=== PATIENT | female | born 1960 | race African-American/Black ===

== ENCOUNTER 2016-04-13 12:25 | Emergency (ER) | payer MEDICARE, BC ==
[2016-04-13] MEDS ORDERED: HYDROcodone/APAP 5-325MG 1 EACH TAB PO STA (12:56)
--- NOTE | 2016-04-13 13:27 | ED ---
General Adult HPI - General Chief complaint: Extremity Injury, Lower Stated complaint: Leg Burning-Post Op Time Seen by Provider: 04/13/16 12:45 Source: patient, RN notes reviewed, old records reviewed Mode of arrival: ambulatory Limitations: no limitations - History of Present Illness Initial comments: This is a 56-year-old female ER status post left leg catheterization. Patient just said stent placed and left leg secondary to arterial stenosis, as well as right leg. Patient has no surgery was done a few days ago. She is complaining of mild left groin pain but nothing out of the ordinary. Not taking anything for pain. Patient's main complaint realizing numbness and tingling of both her lower extremities, legs and feet. Patient denies a previous history of similar symptoms, no other trauma. No loss of bowel or bladder, no neurological deficits - Related Data Home Medications Medication Instructions Recorded Confirmed Furosemide [Lasix] 80 mg PO BID 09/17/13 03/12/16 Insulin Glargine,Hum.rec.anlog 38 units SQ HS 10/17/15 03/12/16 [[place] Solostar] Sevelamer [Renvela] 800 mg PO QID 10/17/15 03/12/16 Albuterol Inhaler [Ventolin Hfa 1 puff INHALATION RT-BID PRN 02/12/16 03/12/16 Inhaler] Atorvastatin [Lipitor] 40 mg PO HS 02/12/16 03/12/16 Insulin Aspart [NovoLOG Flexpen] See Protocol SQ AC-TID 02/12/16 03/12/16 Pantoprazole [Protonix] 40 mg PO DAILY 02/12/16 03/12/16 Aspirin 325 mg PO DAILY 03/12/16 03/12/16 Folic Acid-Vit B Complex-Vit C 1 mg PO DAILY 03/12/16 03/12/16 [Nephrocaps] Fosrenol 1,000 mg PO QID 03/12/16 03/12/16 Previous Rx's Medication Instructions Recorded Metoprolol Succinate (ER) [Toprol 50 mg PO DAILY #30 tab.er.24h 10/29/15 XL] Nitroglycerin Sl Tabs [Nitrostat] 0.4 mg SUBLINGUAL Q5M PRN #25 tab 10/29/15 Clopidogrel [Plavix] 75 mg PO DAILY tab 02/16/16 ALPRAZolam [Xanax] 0.25 mg PO HS #0 02/18/16 Fenofibrate Nanocrystallized 145 mg PO HS #30 tablet 03/14/16 [Tricor] INSULIN LISPRO (humaLOG) [humaLOG 0 unit SQ ACHS vial 03/14/16 (formulary)] INSULIN LISPRO (humaLOG) [humaLOG 14 unit SQ AC-LUNCH vial 03/14/16 (formulary)] INSULIN LISPRO (humaLOG) [humaLOG 16 unit SQ AC-SUPPER vial 03/14/16 (formulary)] HYDROcodone/APAP 5-325MG [[place] 1 tab PO Q6HR PRN #20 tab 04/13/16 5-325] Allergies Allergy/AdvReac Type Severity Reaction Status Date / Time iodine Allergy Anaphylaxis Verified 04/13/16 14:22 Penicillins Allergy Rash/Hives Verified 04/13/16 14:22 shellfish derived Allergy Anaphylaxis Verified 04/13/16 14:22 clonidine AdvReac Unknown Verified 04/13/16 12:35 Review of Systems ROS Statement: Those systems with pertinent positive or pertinent negative responses have been documented in the HPI. ROS Other: All systems not noted in ROS Statement are negative. Past Medical History Past Medical History: Coronary Artery Disease (CAD), Chest Pain / Angina, CVA/ TIA, Diabetes Mellitus, GERD/Reflux, GI Bleed, Hyperlipidemia, Hypertension, Osteoarthritis (OA), Pneumonia, Rheumatoid Arthritis (RA) Additional Past Medical History / Comment(s): Chronic renal failure with hemodialysis MWF, 2.8 liters taken off 02/11/16 anemia,, CVA 2007 with some peripheral vision problems R eye, TIAs, lower GI bleed, PAD, DJD, diverticulosis , peripheral neuropathy bilateral feet, UTIs, bronchitis, pancreatitis, TMJ., History of Any Multi-Drug Resistant Organisms: None Reported Past Surgical History: Cholecystectomy, Heart Catheterization With Stent, Hysterectomy Additional Past Surgical History / Comment(s): graft L upper arm for dialysis, Cardiac cath with stent to mid RCA, colonoscopies with 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 Date of Last Stent Placement:: 09/22/13 Past Psychological History: No Psychological Hx Reported Additional Psychological History / Comment(s): Pt resides with her spouse. She is independent. She drives. Smoking Status: Former smoker Past Alcohol Use History: Occasional Additional Past Alcohol Use History / Comment(s): Pt smoked from 1983 to 2012. She drinks alcohol occasionally. Past Drug Use History: None Reported - Past Family History Mother Family Medical History: Hypertension, Rheumatoid Arthritis (RA) Additional Family Medical History / Comment(s): Mother is 75 yrs old. Father Family Medical History: Diabetes Mellitus Additional Family Medical History / Comment(s): Father at the age of 42 yrs -pt did not discuss cause of . General Exam Limitations: no limitations General appearance: alert, in no apparent distress Head exam: Present: atraumatic, normocephalic, normal inspection Eye exam: Present: normal appearance, PERRL, EOMI. Absent: scleral icterus, conjunctival injection, periorbital swelling ENT exam: Present: normal exam, mucous membranes moist Neck exam: Present: normal inspection. Absent: tenderness, meningismus, lymphadenopathy Respiratory exam: Present: normal lung sounds bilaterally. Absent: respiratory distress, wheezes, rales, rhonchi, stridor Cardiovascular Exam: Present: regular rate, normal rhythm, normal heart sounds. Absent: systolic murmur, diastolic murmur, rubs, gallop, clicks GI/Abdominal exam: Present: soft, normal bowel sounds. Absent: distended, tenderness, guarding, rebound, rigid Extremities exam: Present: normal inspection, full ROM, normal capillary refill , other (She does have left leg groin hematoma). Absent: tenderness, pedal edema, joint swelling, calf tenderness Back exam: Present: normal inspection Neurological exam: Present: alert, oriented X3, CN II-XII intact Psychiatric exam: Present: normal affect, normal mood Skin exam: Present: warm, dry, intact, normal color. Absent: rash Course Vital Signs 04/13/16 12:32 Temperature 98.9 F Pulse Rate 99 Respiratory 18 Rate Blood Pressure 149/71 O2 Sat by Pulse 99 Oximetry Medical Decision Making - Medical Decision Making 56 male to ED co bilateral lower exremity paresthesia, ultrasound negative for any groin issue, patient will follow up with [facility] for further evaluation of her lower extremity paresthesias - Radiology Data Radiology results: report reviewed (Ultrasound left groin negative), image reviewed Disposition Clinical Impression: Paresthesia of bilateral legs Disposition: HOME SELF-CARE Condition: Good Instructions: Paresthesia (ED) Prescriptions: HYDROcodone/APAP 5-325MG [[place] 5-325] 1 tab PO Q6HR PRN #20 tab PRN Reason: Pain Referrals: Ramiro Sethi MD [Primary Care Provider] - 1-2 days
--- NOTE | 2016-04-13 14:14 | US ---
EXAMINATION TYPE: US groin extremity LT DATE OF EXAM: 04/13/2016 1:45 PM COMPARISON: NONE CLINICAL HISTORY: Pain. Burning sensation in bilateral legs, pt states she does have neuropathy, but has never experienced this sensation in her legs before. Recently had a procedure done to place a zuhair nt in the right leg by entering through the left groin. TECHNOLOGIST IMPRESSION: Left groin appears to be within normal limits. IMPRESSION: No significant abnormality. No evidence of venous thrombosis or arterial occlusion. Ther e is some atherosclerotic plaque in the femoral artery. No pathologic fluid collection. No hernia see n. No evidence of pseudoaneurysm.
[2016-04-13 14:54] VITALS: BP 170/72; PULSE 87; RESP 16; TEMP 98.6
== END 2016-04-13 15:03 | disposition home or self-care (01) ==
LOC: EC 12:25
DX: R20.2 Paresthesia of skin (principal); Z95.5 Presence of coronary angioplasty implant and graft; M19.90 Unspecified osteoarthritis, unspecified site; I10 Essential (primary) hypertension; I12.9 Hypertensive chronic kidney disease with stage 1 through stage 4 chronic kidney disease, or unspecified chronic kidney disease; M06.9 Rheumatoid arthritis, unspecified; K21.9 Gastro-esophageal reflux disease without esophagitis; I25.10 Atherosclerotic heart disease of native coronary artery without angina pectoris; E78.5 Hyperlipidemia, unspecified; E11.9 Type 2 diabetes mellitus without complications; Z79.02 Long term (current) use of antithrombotics/antiplatelets; Z79.4 Long term (current) use of insulin; Z79.899 Other long term (current) drug therapy; Z79.82 Long term (current) use of aspirin; Z88.0 Allergy status to penicillin; Z86.73 Personal history of transient ischemic attack (TIA), and cerebral infarction without residual deficits; Z87.891 Personal history of nicotine dependence
CPT/HCPCS: 99283

== ENCOUNTER 2016-07-16 03:15 | Inpatient (IN) | payer MEDICARE, BC ==
[2016-07-16] MEDS ORDERED: IPRATROPIUM-ALBUTEROL 3 ML NEB INHALATION STA (03:41)
[2016-07-16 03:55] LABS: Anisocytosis Slight; Basophils % (A) 0 %; CH 29.9; CHCM 30.7; Eosinophils # (A) 0.1 k/uL (0-0.7); Eosinophils % (A) 1 %; HCT 34.8 % (34.0-46.0); HDW 3.34; Hypochromasia Marked; Luc # (Auto) 0.11; Luc % (Auto) 1; Lymphocytes # (A) 0.9 k/uL (1.0-4.8); Lymphocytes % (A) 11 %; MCHC 31.7 g/dL (31.0-37.0); MCV 97.8 fL (80.0-100.0); Macrocytosis Slight; Mean Platelet Volume 7.3; Monocytes # (A) 0.3 k/uL (0-1.0); Monocytes % (A) 4 %; Neutrophils % (A) 83 %; RBC 3.56 m/uL (3.80-5.40); RDW 19.6 % (11.5-15.5); WBC 8.4 k/uL (3.8-10.6); WBC (Perox) 8.73
--- NOTE | 2016-07-16 03:59 | ED ---
General Adult HPI - General Chief complaint: Shortness of Breath Stated complaint: fluid retention-dialysis pt Time Seen by Provider: 07/16/16 03:40 Source: patient, RN notes reviewed, old records reviewed Mode of arrival: ambulatory Limitations: no limitations - History of Present Illness Initial comments: This is a 56-year-old female the ER for evaluation. The patient is unsafe for evaluation of shortness of breath, severe shortness of breath, patient staffs patient with history of heart failure. Feels like she can't catch her breath. Mild nausea no vomiting. No fevers. Mild cough no congestion. No travel history no sick contacts. - Related Data Home Medications Medication Instructions Recorded Confirmed Furosemide [Lasix] 80 mg PO BID 09/17/13 04/13/16 Insulin Glargine,Hum.rec.anlog 38 units SQ HS 10/17/15 04/13/16 [[place] Solostar] Sevelamer [Renvela] 800 mg PO QID 10/17/15 04/13/16 Albuterol Inhaler [Ventolin Hfa 1 puff INHALATION RT-BID PRN 02/12/16 04/13/16 Inhaler] Insulin Aspart [NovoLOG Flexpen] See Protocol SQ AC-TID 02/12/16 04/13/16 Pantoprazole [Protonix] 40 mg PO DAILY 02/12/16 04/13/16 Fosrenol 1,000 mg PO DAILY 03/12/16 04/13/16 Aspirin EC [Ecotrin Low Dose] 81 mg PO DAILY 04/13/16 04/13/16 Atorvastatin [Lipitor] 40 mg PO HS 04/13/16 04/13/16 Previous Rx's Medication Instructions Recorded Metoprolol Succinate (ER) [Toprol 50 mg PO DAILY #30 tab.er.24h 10/29/15 XL] Nitroglycerin Sl Tabs [Nitrostat] 0.4 mg SUBLINGUAL Q5M PRN #25 tab 10/29/15 Clopidogrel [Plavix] 75 mg PO DAILY tab 02/16/16 ALPRAZolam [Xanax] 0.25 mg PO HS #0 02/18/16 HYDROcodone/APAP 5-325MG [[place] 1 tab PO Q6HR PRN #20 tab 04/13/16 5-325] Allergies Allergy/AdvReac Type Severity Reaction Status Date / Time iodine Allergy Anaphylaxis Verified 07/16/16 03:20 Penicillins Allergy Rash/Hives Verified 07/16/16 03:20 shellfish derived Allergy Anaphylaxis Verified 07/16/16 03:20 clonidine AdvReac Unknown Verified 07/16/16 03:20 Review of Systems ROS Statement: Those systems with pertinent positive or pertinent negative responses have been documented in the HPI. ROS Other: All systems not noted in ROS Statement are negative. Past Medical History Past Medical History: Coronary Artery Disease (CAD), Chest Pain / Angina, CVA/ TIA, Diabetes Mellitus, GERD/Reflux, GI Bleed, Hyperlipidemia, Hypertension, Osteoarthritis (OA), Pneumonia, Rheumatoid Arthritis (RA) Additional Past Medical History / Comment(s): Chronic renal failure with hemodialysis MWF, 2.8 liters taken off 02/11/16 anemia,, CVA 2007 with some peripheral vision problems R eye, TIAs, lower GI bleed, PAD, DJD, diverticulosis , peripheral neuropathy bilateral feet, UTIs, bronchitis, pancreatitis, TMJ., History of Any Multi-Drug Resistant Organisms: None Reported Past Surgical History: Cholecystectomy, Heart Catheterization With Stent, Hysterectomy Additional Past Surgical History / Comment(s): graft L upper arm for dialysis, Cardiac cath with stent to mid RCA, colonoscopies with 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 Date of Last Stent Placement:: 09/22/13 Past Psychological History: No Psychological Hx Reported Additional Psychological History / Comment(s): Pt resides with her spouse. She is independent. She drives. Smoking Status: Former smoker Past Alcohol Use History: Occasional Additional Past Alcohol Use History / Comment(s): Pt smoked from 1983 to 2012. She drinks alcohol occasionally. Past Drug Use History: None Reported - Past Family History Mother Family Medical History: Hypertension, Rheumatoid Arthritis (RA) Additional Family Medical History / Comment(s): Mother is 75 yrs old. Father Family Medical History: Diabetes Mellitus Additional Family Medical History / Comment(s): Father at the age of 42 yrs -pt did not discuss cause of . General Exam Limitations: no limitations General appearance: alert, anxious, in distress, obese Head exam: Present: atraumatic, normocephalic, normal inspection Eye exam: Present: normal appearance, PERRL, EOMI. Absent: scleral icterus, conjunctival injection, periorbital swelling ENT exam: Present: normal exam, mucous membranes moist Neck exam: Present: normal inspection. Absent: tenderness, meningismus, lymphadenopathy Respiratory exam: Present: respiratory distress, rales, accessory muscle use, decreased breath sounds, prolonged expiratory. Absent: wheezes, rhonchi, stridor Cardiovascular Exam: Present: regular rate, normal rhythm, normal heart sounds. Absent: systolic murmur, diastolic murmur, rubs, gallop, clicks GI/Abdominal exam: Present: soft, normal bowel sounds. Absent: distended, tenderness, guarding, rebound, rigid Extremities exam: Present: normal inspection, full ROM, normal capillary refill. Absent: tenderness, pedal edema, joint swelling, calf tenderness Back exam: Present: normal inspection Neurological exam: Present: alert, oriented X3, CN II-XII intact Psychiatric exam: Present: normal affect, normal mood Skin exam: Present: warm, dry, intact, normal color. Absent: rash Course Vital Signs 07/16/16 07/16/16 07/16/16 03:19 03:55 04:06 Temperature 98 F Pulse Rate 98 105 H 103 H Respiratory 26 H Rate Blood Pressure 178/74 O2 Sat by Pulse 89 L Oximetry 07/16/16 07/16/16 07/16/16 04:18 04:29 04:40 Temperature Pulse Rate 98 96 94 Respiratory 26 H 23 22 Rate Blood Pressure 178/75 168/77 158/77 O2 Sat by Pulse 93 L 94 L 100 Oximetry 07/16/16 05:41 Temperature Pulse Rate 91 Respiratory 24 Rate Blood Pressure 136/98 O2 Sat by Pulse 95 Oximetry - Reevaluation(s) Reevaluation #1: 07/16/16 06:06 Patient placed on BiPAP upon arrival to Hospital, and blood pressure control with nitro, treating CHF and fluid overload comes kidney disease Reevaluation #2: 07/16/16 06:06 Patient's case fluid complicated further, blood being in severe dehydration with DKA. Patient started on insulin, given a fluid bolus with IV resuscitation EKG Findings - EKG Comments: EKG Findings:: EKG shows normal sinus rhythm rate of 97, MA 144, QRS 90, QTC 505 Medical Decision Making - Medical Decision Making 56 female year for evaluation of multiple issues, first being CHF with respiratory failure and fluid overload second being DKA with volume depletion. Patient be admitted for likely management, fluid resuscitation, dialysis by nephrology and further evaluation and treatment regarding heart failure from product marketing programs manager - Lab Data Result diagrams: 07/16/16 03:40 07/16/16 03:40 Lab Results 07/16/16 07/16/16 07/16/16 Range/Units 03:40 03:40 03:40 WBC 8.4 (3.8-10.6) k/uL RBC 3.56 L (3.80-5.40) m/uL Hgb 11.0 L (11.4-16.0) gm/dL Hct 34.8 (34.0-46.0) % MCV 97.8 (80.0-100.0) fL MCH 31.0 (25.0-35.0) pg MCHC 31.7 (31.0-37.0) g/dL RDW 19.6 H (11.5-15.5) % Plt Count 337 (150-450) k/uL Neutrophils % 83 % Lymphocytes % 11 % Monocytes % 4 % Eosinophils % 1 % Basophils % 0 % Neutrophils # 7.0 (1.3-7.7) k/uL Lymphocytes # 0.9 L (1.0-4.8) k/uL Monocytes # 0.3 (0-1.0) k/uL Eosinophils # 0.1 (0-0.7) k/uL Basophils # 0.0 (0-0.2) k/uL Hypochromasia Marked Anisocytosis Slight Macrocytosis Slight PT (9.0-12.0) sec INR (<1.1) APTT (22.0-30.0) sec D-Dimer (<0.60) mg/L FEU Sodium 136 L (137-145) mmol/L Potassium 4.3 (3.5-5.1) mmol/L Chloride 91 L (98-107) mmol/L Carbon Dioxide 24 (22-30) mmol/L Anion Gap 21 mmol/L BUN 52 H (7-17) mg/dL Creatinine 8.44 H* (0.52-1.04) mg/dL Est GFR (MDRD) Af Amer 6 (>60 ml/min/1.73 sqM) Est GFR (MDRD) Non-Af 5 (>60 ml/min/1.73 sqM) Glucose 588 H* (74-99) mg/dL POC Glucose (mg/dL) (75-99) mg/dL POC Glu Hosiery Mender ID Calcium 10.1 (8.4-10.2) mg/dL Magnesium 2.8 H (1.6-2.3) mg/dL Total Bilirubin 0.7 (0.2-1.3) mg/dL AST 25 (14-36) U/L ALT 19 (9-52) U/L Alkaline Phosphatase 109 (38-126) U/L Total Creatine Kinase 132 (30-135) U/L CK-MB (CK-2) 5.4 H* (0.0-2.4) ng/mL CK-MB (CK-2) Rel Index 4.1 Troponin I 1.030 H* (0.000-0.034) ng/mL NT-Pro-B Natriuret Pep pg/mL Total Protein 7.9 (6.3-8.2) g/dL Albumin 4.4 (3.5-5.0) g/dL 07/16/16 07/16/16 07/16/16 Range/Units 03:40 03:40 05:32 WBC (3.8-10.6) k/uL RBC (3.80-5.40) m/uL Hgb (11.4-16.0) gm/dL Hct (34.0-46.0) % MCV (80.0-100.0) fL MCH (25.0-35.0) pg MCHC (31.0-37.0) g/dL RDW (11.5-15.5) % Plt Count (150-450) k/uL Neutrophils % % Lymphocytes % % Monocytes % % Eosinophils % % Basophils % % Neutrophils # (1.3-7.7) k/uL Lymphocytes # (1.0-4.8) k/uL Monocytes # (0-1.0) k/uL Eosinophils # (0-0.7) k/uL Basophils # (0-0.2) k/uL Hypochromasia Anisocytosis Macrocytosis PT 9.8 (9.0-12.0) sec INR 1.0 (<1.1) APTT 22.3 (22.0-30.0) sec D-Dimer 2.19 H (<0.60) mg/L FEU Sodium (137-145) mmol/L Potassium (3.5-5.1) mmol/L Chloride (98-107) mmol/L Carbon Dioxide (22-30) mmol/L Anion Gap mmol/L BUN (7-17) mg/dL Creatinine (0.52-1.04) mg/dL Est GFR (MDRD) Af Amer (>60 ml/min/1.73 sqM) Est GFR (MDRD) Non-Af (>60 ml/min/1.73 sqM) Glucose (74-99) mg/dL POC Glucose (mg/dL) 505 H (75-99) mg/dL POC Glu Hosiery Mender ID [email or web address] Calcium (8.4-10.2) mg/dL Magnesium (1.6-2.3) mg/dL Total Bilirubin (0.2-1.3) mg/dL AST (14-36) U/L ALT (9-52) U/L Alkaline Phosphatase (38-126) U/L Total Creatine Kinase (30-135) U/L CK-MB (CK-2) (0.0-2.4) ng/mL CK-MB (CK-2) Rel Index Troponin I (0.000-0.034) ng/mL NT-Pro-B Natriuret Pep 27180 pg/mL Total Protein (6.3-8.2) g/dL Albumin (3.5-5.0) g/dL - Radiology Data Radiology results: report reviewed (Chest x-ray does show positive CHF), image reviewed Critical Care Time Critical Care Time: Yes Total Critical Care Time: 65 Disposition Clinical Impression: Systolic congestive heart failure, Bronchospasm, acute, Elevated troponin, DKA (diabetic ketoacidoses), Acute pulmonary edema, Dehydration Disposition: ADMITTED IP TO THIS [facility] Condition: Serious Referrals: Ramiro Sethi MD [Primary Care Provider] - 1-2 days
--- NOTE | 2016-07-16 04:02 | XR ---
EXAM: XR Chest, 1 View CLINICAL HISTORY: Reason: Pain TECHNIQUE: Frontal view of the chest. COMPARISON: 03/12/16 two-view chest. FINDINGS: Lungs: New diffuse pulmonary edema like pattern with diffuse reticular opacities and indistinct pulmonary vascular markings throughout. No superimposed infiltrate. Pleural space: No large pleural effusion is seen on this portable exam. No pneumothorax. Heart: The heart size is stable. Mediastinum: Mediastinal contours are stable including aortic calcification. Bones/joints: Bones stable including degenerative changes. IMPRESSION: New findings suggestive of CHF. Correlate clinically, follow up suggested to ensure clearing.
[2016-07-16 04:03] LABS: Calcium 10.1 mg/dL (8.4-10.2); Magnesium 2.8 mg/dL (1.6-2.3); Potassium 4.3 mmol/L (3.5-5.1); Total Bilirubin 0.7 mg/dL (0.2-1.3); Total Protein 7.9 g/dL (6.3-8.2)
[2016-07-16] MEDS ORDERED: LORazepam 2 MG/ML SYRINGE IV STA (04:03)
[2016-07-16] MEDS ORDERED: NITROGLYCERIN-D5W PMX 50 MG in DEXTROSE/WATER 1 250ML.BAG IV ONE (04:04)
[2016-07-16 04:09] LABS: Partial Thromboplastin Time 22.3 sec (22.0-30.0); Prothrombin Time 9.8 sec (9.0-12.0)
[2016-07-16] MEDS ORDERED: INSULIN REGULAR BOLUS (FROM DRIP BAG) IV ONE (04:32)
[2016-07-16] MEDS ORDERED: SODIUM CHLORIDE 0.9% 500 ML IV STA (04:32)
[2016-07-16 04:45] LABS: Creatine Kinase MB 5.4 ng/mL (0.0-2.4); Troponin I 1.03 ng/mL (0.000-0.034)
[2016-07-16] MEDS ORDERED: INSULIN REGULAR 100 UNIT in SODIUM CHLORIDE 0.9% 100 ML IV SCH (04:45)
[2016-07-16] MEDS: SODIUM CHLORIDE 0.9% 1,000 ML IV STA ×2 (05:39→08:30)
[2016-07-16 05:52] LABS: Glucose,Whole Blood 505 mg/dL (75-99)
[2016-07-16 06:55] LABS: Glucose,Whole Blood 448 mg/dL (75-99)
[2016-07-16 08:00] LABS: Glucose,Whole Blood 423 mg/dL (75-99)
[2016-07-16] MEDS: IPRATROPIUM-ALBUTEROL 3 ML NEB INHALATION SCH ×4 (08:00→20:28)
[2016-07-16] MEDS ORDERED: FUROSEMIDE 10 MG/ML 4 ML VIAL IV STA (08:03)
[2016-07-16 08:39] LABS: Phosphorous 5.3 mg/dL (2.5-4.5); Potassium 3.6 mmol/L (3.5-5.1)
[2016-07-16 09:12] LABS: Glucose,Whole Blood 330 mg/dL (75-99)
[2016-07-16 10:14] LABS: Glucose,Whole Blood 312 mg/dL (75-99)
[2016-07-16] MEDS ORDERED: ALBUTEROL NEBULIZED 2.5 MG/3 ML INHALATION PRN (10:38)
[2016-07-16 11:14] LABS: Glucose,Whole Blood 265 mg/dL (75-99)
[2016-07-16] MEDS: D5-0.45% NACL WITH KCL 20MEQ/L 1,000 ML IV SCH ×2 (11:36→14:44)
[2016-07-16 12:38] LABS: Glucose,Whole Blood 173 mg/dL (75-99)
[2016-07-16 12:58] LABS: Phosphorous 2.9 mg/dL (2.5-4.5); Potassium 3.3 mmol/L (3.5-5.1)
[2016-07-16 13:20] LABS: Glucose,Whole Blood 115 mg/dL (75-99)
[2016-07-16 14:13] LABS: Glucose,Whole Blood 118 mg/dL (75-99)
[2016-07-16] MEDS ORDERED: BUMETANIDE 0.25 MG/ML 4 ML VIAL IVP STA (14:23)
[2016-07-16] MEDS ORDERED: INSULIN DETEMIR 100 UNIT/ML 10 ML VIAL SQ STA (14:27)
[2016-07-16 15:04] VITALS: BMI 26.4
--- NOTE | 2016-07-16 16:12 | P.CRDCN ---
History of Present Illness Consult date: 07/16/16 History of present illness: This is a pleasant 56-year-old -[place] female patient who sees Dr. Calixto as an outpatient with a past medical history significant for CAD and status post attempting angioplasty of the right coronary artery, diabetes, hypertension, dyslipidemia, and into stage renal disease on hemodialysis, was brought to the hospital by her because of chest discomfort and shortness of breath. The patient is a sort of poor historian. She stated that she has been experiencing intermittent episodes of chest discomfort over the last several weeks. Yesterday she had another episode of more profound chest discomfort was associated with sweating and shortness of breath. Beside that she has been experiencing progressive exertional dyspnea. The patient presented to the emergency room where she was found to be in congestive heart failure exacerbation. Beside that she was ruled in for acute non-ST patient myocardial infarction and the troponin came in to be around 10. The BNP came in to be severely elevated. Serial The patient was seen and evaluated by the nephrology service and the plan is to proceed with dialysis today. Currently she is on statin and I would add aspirin to it. Will obtain an echocardiogram was Doppler. The patient need to have a heart catheterization in the next 24 hours. Past Medical History Past Medical History: Coronary Artery Disease (CAD), Chest Pain / Angina, Heart Failure, CVA/TIA, Diabetes Mellitus, GERD/Reflux, GI Bleed, Hyperlipidemia, Hypertension, Osteoarthritis (OA), Pneumonia, Renal Disease, Rheumatoid Arthritis (RA), Vascular Disorder Additional Past Medical History / Comment(s): Chronic renal failure stage IV with hemodialysis MWF, anemia, recent tooth infection tx with ABX, CVA 2007 with some peripheral vision problems R eye, MORONGO R ear, TIAs, lower GI bleed, PAD , DJD, diverticulosis, peripheral neuropathy bilateral feet, UTIs, bronchitis, pancreatitis, sciatica L leg. History of Any Multi-Drug Resistant Organisms: None Reported Past Surgical History: Cholecystectomy, Heart Catheterization With Stent, Hysterectomy Additional Past Surgical History / Comment(s): graft L upper arm for dialysis, Cardiac cath with stent to mid RCA, colonoscopies with 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 Date of Last Stent Placement:: 09/22/13 Past Psychological History: No Psychological Hx Reported Additional Psychological History / Comment(s): Pt resides with her spouse. She is independent. She drives. Smoking Status: Former smoker Past Alcohol Use History: Occasional Additional Past Alcohol Use History / Comment(s): Pt smoked from 1983 to 2012. She drinks alcohol occasionally. Past Drug Use History: None Reported - Past Family History Mother Family Medical History: Hypertension, Rheumatoid Arthritis (RA) Additional Family Medical History / Comment(s): Mother is 75 yrs old. Father Family Medical History: Diabetes Mellitus Additional Family Medical History / Comment(s): Father at the age of 42 yrs -pt did not discuss cause of . Medications and Allergies Home Medications Medication Instructions Recorded Confirmed Type Furosemide [Lasix] 80 mg PO BID 09/17/13 07/16/16 History Albuterol Inhaler [Ventolin Hfa 1 puff INHALATION RT-BID PRN 02/12/16 07/16/16 History Inhaler] Insulin Aspart [NovoLOG Flexpen] 12 unit SQ AC-BRKFST 02/12/16 07/16/16 History Atorvastatin [Lipitor] 40 mg PO HS 07/16/16 07/16/16 History Calcium Acetate [Phoslo] 1,334 mg PO TID 07/16/16 07/16/16 History Insulin Aspart [NovoLOG Flexpen] 14 units SQ AC-LUNCH 07/16/16 07/16/16 History Insulin Aspart [NovoLOG Flexpen] 16 units SQ AC-SUPPER 07/16/16 07/16/16 History Insulin Glargine,Hum.rec.anlog 38 unit SQ HS 07/16/16 07/16/16 History [Lantus Solostar] Metoprolol Tartrate [Lopressor] 50 mg PO BID 07/16/16 07/16/16 History amLODIPine [Norvasc] 2.5 mg PO DAILY 07/16/16 07/16/16 History Allergies Allergy/AdvReac Type Severity Reaction Status Date / Time iodine Allergy Anaphylaxis Verified 07/16/16 07:34 Penicillins Allergy Rash/Hives Verified 07/16/16 07:34 shellfish derived Allergy Anaphylaxis Verified 07/16/16 07:34 clonidine AdvReac Unknown Verified 07/16/16 07:34 Physical Exam Vitals: Vital Signs Temp Pulse Resp BP Pulse Ox 07/16/16 13:26 98.0 F 95 16 148/64 97 07/16/16 12:37 95 20 114/59 90 L 07/16/16 12:30 98.0 F 89 16 101/51 96 07/16/16 12:18 91 07/16/16 12:09 92 07/16/16 11:44 92 L 07/16/16 10:00 93 16 172/80 99 07/16/16 09:15 96 16 152/72 96 07/16/16 09:00 96 16 159/75 100 07/16/16 08:30 96 16 160/74 100 07/16/16 08:15 94 16 168/78 96 07/16/16 08:13 93 07/16/16 08:03 18 07/16/16 08:00 94 16 147/66 100 07/16/16 07:45 89 20 147/69 100 07/16/16 07:30 97 16 146/67 100 07/16/16 07:15 91 16 143/69 99 07/16/16 07:11 88 23 140/66 99 07/16/16 07:00 98.0 F 89 16 140/66 99 07/16/16 06:15 85 22 121/58 98 07/16/16 05:41 91 24 136/98 95 07/16/16 04:40 94 22 158/77 100 Intake and Output 07/16/16 07/16/16 07/16/16 06:59 14:59 22:59 Intake Total 4.853 39.692 Balance 4.853 39.692 Intake: Intake, IV Titration 4.853 39.692 Amount Insulin Regular 100 unit 4.853 39.692 In Sodium Chloride 0.9% 100 ml @ 0.1 UNITS/KG/HR 7.28 mls/hr IV .[id number] [facility] Rx#:[id number] Other: Weight 72.121 kg Patient Weight 07/17/16 06:59 Weight 72.121 kg - Constitutional General appearance: mild distress - Respiratory Respiratory: bilateral: rhonchi - Cardiovascular Rhythm: regular Heart sounds: normal: S1, S2 Results 07/16/16 03:40 07/16/16 12:08 Cardiac Enzymes 07/16/16 Range/Units 12:09 Troponin I 10.100 H* (0.000-0.034) ng/mL Comprehensive Metabolic Panel 07/16/16 07/16/16 Range/Units 07:32 12:08 Sodium 137 142 (137-145) mmol/L Potassium 3.6 3.3 L (3.5-5.1) mmol/L Chloride 96 L 98 (98-107) mmol/L Carbon Dioxide 25 27 (22-30) mmol/L BUN 54 H 33 H (7-17) mg/dL Creatinine 8.63 H* 4.97 H (0.52-1.04) mg/dL Glucose 398 H 140 H (74-99) mg/dL Current Medications Generic Name Dose Route Start Last Admin Trade Name Freq PRN Reason Stop Dose Admin Albuterol Sulfate 2.5 mg 07/16/16 10:38 Ventolin Nebulized INHALATION RT-BID PRN Shortness Of Breath Albuterol/Ipratropium 3 ml 07/16/16 08:00 07/16/16 12:09 Duoneb 0.5 Mg-3 Mg/3 Ml Soln INHALATION 3 ml RT-Q4H [facility] Administration Alprazolam 0.25 mg 07/16/16 21:00 Xanax PO HS [facility] Aspirin 325 mg 07/17/16 09:00 Aspirin PO DAILY [facility] Atorvastatin Calcium 40 mg 07/16/16 21:00 Lipitor PO HS [facility] Calcium Acetate 1,334 mg 07/16/16 16:00 Phoslo PO TID [facility] Clopidogrel Bisulfate 75 mg 07/17/16 09:00 Plavix PO DAILY [facility] Furosemide 80 mg 07/16/16 16:00 Lasix PO BID@0900,1600 [facility] Potassium Chloride/Dextrose/Sod Cl 1,000 mls @ 20 mls/hr 07/16/16 12:00 07/16 14:44 D5%-1/2ns-Kcl 20 Meq/L Iv Solution IV 20 mls/hr .Q24H [facility] Administration Nitroglycerin/Dextrose 50 mg/ 250 mls @ 3 mls/hr 07/16/16 15:00 IV Solution IV .Q24H [facility] Protocol 10 MCG/MIN Insulin Glargine 38 unit 07/17/16 21:00 Lantus SQ HS [facility] Insulin Human Lispro 16 unit 07/16/16 17:30 Humalog SQ AC-SUPPER [facility] Insulin Human Lispro 14 unit 07/17/16 12:30 Humalog SQ AC-LUNCH [facility] Insulin Human Lispro 12 unit 07/17/16 07:30 Humalog SQ AC-BRKFST [facility] Insulin Human Lispro 0 unit 07/16/16 17:30 Humalog SQ ACHS [facility] Protocol Metoprolol Tartrate 50 mg 07/16/16 21:00 Lopressor PO BID [facility] Intake and Output 07/16/16 07/16/16 07/16/16 06:59 14:59 22:59 Intake Total 4.853 39.692 Balance 4.853 39.692 Intake: Intake, IV Titration 4.853 39.692 Amount Insulin Regular 100 unit 4.853 39.692 In Sodium Chloride 0.9% 100 ml @ 0.1 UNITS/KG/HR 7.28 mls/hr IV .[id number] [facility] Rx#:[id number] Other: Weight 72.121 kg Patient Weight 07/17/16 06:59 Weight 72.121 kg 07/16/16 12:08 Assessment and Plan Plan: Assessment #1 acute respiratory failure #2 acute non-STEMI #3 known CAD #4 into stage renal disease on hemodialysis #5 multiple comorbid conditions Plan #1 the patient is going to have dialysis day #2 maximize medical treatment at this point of time #3 once the patient is better indeterminable of heart failure she is to have a heart catheterization done.
[2016-07-16 16:26] LABS: Glucose,Whole Blood 234 mg/dL (75-99)
[2016-07-16] MEDS: CALCIUM ACETATE 667 MG CAP PO SCH (17:31)
[2016-07-16] MEDS: FUROSEMIDE 80 MG TAB PO SCH (17:31)
[2016-07-16] MEDS: INSULIN LISPRO (humaLOG) 300 UNIT/3 ML VIAL SQ SCH ×2 (17:32)
[2016-07-16 21:38] LABS: Glucose,Whole Blood 166 mg/dL (75-99)
[2016-07-16] MEDS: NITROGLYCERIN-D5W PMX 50 MG in DEXTROSE/WATER 1 250ML.BAG IV SCH (21:48)
--- NOTE | 2016-07-16 23:09 | HP ---
DATE OF ADMISSION: 07/16/2016 REASON FOR ADMISSION: Difficulty in breathing. HISTORY OF PRESENTING ILLNESS: This is a 56-year-old female currently ESRD, on hemodialysis Thursday, Thursday, Thursday, history of CAD. She comes into the hospital with shortness of breath that was acute onset and woke her up around 2 a.m. in the morning. Patient apparently was feeling well prior to going to bed. Patient came into the emergency room and was noted to have accelerated hypertension. Troponin was elevated at 10. Appeared to have no ST-T wave changes on EKG. Patient was noted to require significant amount of oxygen, was taken for a chest x-ray, which showed diffuse pulmonary edema. BNP was severely elevated. At the time of my evaluation, patient was on an insulin drip for an elevated blood sugar around 500. She was also started on IV fluids for treatment of DKA; however, patient does not appear to be in diabetic ketoacidosis. Patient states that her symptoms of chest pressure, which was midsternal in location, radiating to her shoulders, were relieved upon nitroglycerin tablets and thereafter started on nitroglycerin drip. Patient underwent hemodialysis for a short duration; however, that was interrupted after 1 liter of fluid removal due to recurrence of symptoms. PAST MEDICAL HISTORY: 1. CAD. 2. CVA. 3. Diabetes mellitus. 4. Dyslipidemia. 5. Hypertension. 6. Osteoarthritis. 7. Rheumatoid arthritis. 8. ESRD. 9. Anemia of ESRD. Past surgical history includes: 1. Hysterectomy. 2. Cardiac catheterization. 3. Cholecystectomy. 4. Left upper arm graft placement. Medications include: 1. Furosemide. 2. Ventolin. 3. NovoLog. 4. Lipitor. 5. PhosLo. 6. Glargine. 7. Lopressor. 8. Amlodipine. Medication doses were reviewed and appropriately reconciled. ALLERGIES: 1. IODINE. 2. PENICILLIN. 3. SHELLFISH. 4. CLONIDINE. FAMILY HISTORY: Not pertinent to current admission. SOCIAL HISTORY: Former smoker. Denies illicit drug use or alcohol use. PHYSICAL EXAM: VITALS: Temperature is 98, heart rate 95, respiratory rate 16. Saturating 90% on 55% FiO2. Blood pressure is 148/64. GENERAL APPEARANCE: Appears to be in respiratory distress. Alert, oriented x3. NECK: Supple. JVD is appreciated. LUNGS: Crackles diffusely. HEART: S1, S2 heard. No murmurs appreciated. EXTREMITIES: A thrill is appreciated on the left AC. ABDOMEN: Soft, nontender. No organomegaly. LOWER EXTREMITIES: No edema appreciated. NEURO: No focal motor or sensory deficits noted. Laboratory data include hemoglobin 11, hematocrit 34.8, white count 8.4, platelets 337. Sodium 142, potassium 3.3, chloride 91, bicarb 27. BUN 33, creatinine 4.97. ASSESSMENT AND PLAN: 1. Acute hypoxic respiratory failure, likely secondary to diastolic heart failure in a patient with end-stage renal disease. 2. Uncontrolled hyperglycemia. There is no diabetic ketoacidosis. 3. Known coronary artery disease. 4. End-stage renal disease, on hemodialysis. 5. Hypokalemia. 6. Non-Q-wave myocardial infarction. 7. Anemia of end-stage renal disease. 8. Hypertension. 9. Diabetes mellitus, type 2. PLAN: Will increase the nitroglycerin to 10 mcg to increase venodilation. Another hemodialysis episode will be attempted. Will give the patient a Bumex dose of 2.5 mg. Once heart failure resolves, patient would likely benefit from a cardiac catheterization. Will consult Cardiology as well. Blood pressure should be better controlled in order to decrease further failure. Trend troponins. Continue ongoing care. Will titrate off the insulin drip at this time as well. Discontinue IV fluids. Patient is critically ill at this time.
[2016-07-17] MEDS: SODIUM CHLORIDE 0.9% 1,000 ML IV SCH (00:40)
[2016-07-17] MEDS: INSULIN LISPRO (humaLOG) 300 UNIT/3 ML VIAL SQ SCH ×8 (01:04→21:22)
[2016-07-17] MEDS: ALPRAZolam 0.25 MG TAB PO SCH ×2 (01:04→20:13)
[2016-07-17] MEDS: ATORVASTATIN 40 MG TAB PO SCH ×2 (01:04→20:13)
[2016-07-17] MEDS: CALCIUM ACETATE 667 MG CAP PO SCH ×5 (01:04→20:19)
[2016-07-17] MEDS: METOPROLOL TARTRATE 50 MG TAB PO SCH ×3 (01:05→20:13)
[2016-07-17 06:31] LABS: Glucose,Whole Blood 211 mg/dL (75-99)
[2016-07-17 07:27] LABS: Calcium 9.1 mg/dL (8.4-10.2); Potassium 4.4 mmol/L (3.5-5.1); Total Bilirubin 0.7 mg/dL (0.2-1.3); Total Protein 6.1 g/dL (6.3-8.2)
[2016-07-17 07:31] LABS: Anisocytosis Moderate; Basophils % (A) 0 %; CH 29.8; CHCM 30.5; Eosinophils % (A) 0 %; HCT 28.1 % (34.0-46.0); HDW 3.11; Hypochromasia Marked; Luc # (Auto) 0.12; Luc % (Auto) 2; Lymphocytes % (A) 13 %; MCH 29.2 pg (25.0-35.0); MCHC 29.8 g/dL (31.0-37.0); Macrocytosis Slight; Mean Platelet Volume 7.3; Monocytes # (A) 0.3 k/uL (0-1.0); Monocytes % (A) 4 %; Neutrophils # (A) 6.4 k/uL (1.3-7.7); Neutrophils % (A) 82 %; RBC 2.87 m/uL (3.80-5.40); RDW 20.2 % (11.5-15.5); WBC 7.9 k/uL (3.8-10.6); WBC (Perox) 8.43
[2016-07-17 07:32] LABS: HGB 8.4 gm/dL (11.4-16.0)
--- NOTE | 2016-07-17 07:41 | ECHOF ---
Referral Reason:assess lvf MEASUREMENTS -------- HEIGHT: 165.1 cm WEIGHT: 72.1 kg BP: 148/64 RVIDd: 2.0 cm (< 3.3) IVSd: 1.1 cm (0.6 - 1.1) LVIDd: 4.4 cm (3.9 - 5.3) LVPWd: 1.3 cm (0.6 - 1.1) IVSs: 1.7 cm LVIDs: 2.8 cm LVPWs: 1.6 cm LA Diam: 3.6 cm (2.7 - 3.8) LAESV Index (A-L): 35.10 ml/m Ao Diam: 3.2 cm (2.0 - 3.7) AV Cusp: 1.5 cm (1.5 - 2.6) LA Diam: 4.7 cm (2.7 - 3.8) MV EXCURSION: 17.007 mm (> 18.000) MV EF SLOPE: 48 mm/s (70 - 150) EPSS: 0.7 cm MV E Contreras: 0.77 m/s MV DecT: 221 ms MV A Contreras: 1.07 m/s MV E/A Ratio: 0.72 RAP: 5.00 mmHg RVSP: 34.73 mmHg FINDINGS -------- Sinus rhythm. This was a technically adequate study. There is borderline concentric left ventricular hypertrophy. Overall left ventricular systolic function is normal with, an EF between 55 - 60 %. The right ventricle is normal in size. LA is moderately dilated 34-39 ml/m2 The right atrial size is normal. There is mild aortic valve sclerosis. There is no evidence of aortic regurgitation. The mitral valve leaflets are mild to moderately thickened. Mild mitral annular calcification present. Moderate mitral regurgitation is present. Mild tricuspid regurgitation present. There is no evidence of pulmonary hypertension. The right ventricular systolic pressure, as measured by Doppler, is 34.73mmHg. There is no pulmonic regurgitation present. The aortic root size is normal. There is no pericardial effusion. CONCLUSIONS -------- 1. There is borderline concentric left ventricular hypertrophy. 2. The right ventricular systolic pressure, as measured by Doppler, is 34.73mmHg. 3. There is no pulmonic regurgitation present. 4. The aortic root size is normal. 5. There is no pericardial effusion. 6. Overall left ventricular systolic function is normal with, an EF between 55 - 60 %. 7. LA is moderately dilated 34-39 ml/m2 8. There is mild aortic valve sclerosis. 9. The mitral valve leaflets are mild to moderately thickened. 10. Mild mitral annular calcification present. 11. Moderate mitral regurgitation is present. 12. Mild tricuspid regurgitation present. 13. There is no evidence of pulmonary hypertension. CANTEEN OPERATOR: Suzi Rossi RDCS
[2016-07-17] MEDS: CLOPIDOGREL 75 MG TAB PO SCH (08:34)
[2016-07-17] MEDS: FUROSEMIDE 80 MG TAB PO SCH ×2 (08:34→17:00)
[2016-07-17] MEDS ORDERED: ASPIRIN 325 MG TAB PO SCH (09:00)
[2016-07-17] MEDS: IPRATROPIUM-ALBUTEROL 3 ML NEB INHALATION SCH ×4 (09:10→18:57)
--- NOTE | 2016-07-17 09:37 | XR ---
EXAMINATION TYPE: XR chest 1V portable DATE OF EXAM: 07/17/2016 7:35 AM COMPARISON: 07/16/2016 HISTORY: Shortness of breath FINDINGS: There are bilateral pleural effusions with cardiomegaly and bibasilar infiltrate. There is a diffuse interstitial pattern. Vascular calcification overlying the soft tissues of the left arm. Atheroscler otic change aorta. IMPRESSION: 1. Stable findings most typical of CHF with tiny bilateral effusions.
[2016-07-17 11:37] LABS: Glucose,Whole Blood 93 mg/dL (75-99)
[2016-07-17 12:46] LABS: Hepatitis B Surface Ag Index 0.06
[2016-07-17 13:05] LABS: Hemoglobin A1C 8.8 % (4.2-6.1)
--- NOTE | 2016-07-17 14:49 | P.PN ---
Subjective Principal diagnosis: CHF This is a pleasant 56-year-old -Italian female patient who sees Dr. Calixto as an outpatient with a past medical history significant for CAD and status post attempted angioplasty of the right coronary artery, diabetes, hypertension, dyslipidemia,end stage renal disease on hemodialysis, was brought to the hospital by her because of chest discomfort and shortness of breath. She stated that she has been experiencing intermittent episodes of chest discomfort over the last several weeks. Yesterday she had another episode of more profound chest discomfort was associated with sweating and shortness of breath. Beside that she has been experiencing progressive exertional dyspnea.The patient presented to the emergency room where she was found to be in congestive heart failure exacerbation. Beside that she was ruled in for acute non-ST patient myocardial infarction and the troponin came in to be around 10. BNP level67,800. Patient again today is undergoing dialysis. Feeling much better overall. She is lying flat in bed today at the time of my examination. Weight is down 3 kg today. Hemoglobin on admission 11.0, 8.4 this morning. Creatinine was up to 8.5 prior to dialysis. Objective - Vital Signs Vital signs: Vital Signs Temp 98.2 F 07/17/16 12:00 Pulse 92 07/17/16 12:26 Resp 18 07/17/16 12:00 BP 135/64 07/17/16 12:00 Pulse Ox 100 07/17/16 12:00 Intake & Output 07/16/16 07/17/16 07/17/16 18:59 06:59 18:59 Intake Total 137.692 178 824 Balance 137.692 178 824 Weight 72.121 kg 69.3 kg Intake: Intake, IV Titration 137.692 178 824 Amount Insulin Regular 100 unit 39.692 In Sodium Chloride 0.9% 100 ml @ 0.1 UNITS/KG/HR 7.28 mls/hr IV .[id number] [facility] Rx#:[id number] Nitroglycerin-D5w Pmx 50 18 18 24 mg In Dextrose/Water 1 250ml.bag @ 10 MCG/MIN 3 mls/hr IV .Q24H [facility] Rx#: [id number] Sodium Chloride 0.9% 1, 80 160 800 000 ml @ 100 mls/hr IV . Q10H [facility] Rx#:[id number] Oral 0 - Exam PHYSICAL EXAMINATION: HEENT: Head is atraumatic, normocephalic. Pupils equal, round. Neck is supple. There is no elevated jugular venous pressure. HEART EXAMINATION: Heart S1, S2 normal. No murmur or gallop heard. CHEST EXAMINATION: Lungs are clear to auscultation with mild diminished air entry to bilateral bases. . No chest wall tenderness is noted on palpation or with deep breathing. ABDOMEN: Soft, nontender. Bowel sounds are heard. No organomegaly noted. EXTREMITIES: 2+ peripheral pulses with trace evidence of peripheral edema and no calf tenderness noted. NEUROLOGIC patient is awake, alert and oriented -3. . - Labs CBC & Chem 7: 07/17/16 06:22 07/17/16 06:22 Labs: Abnormal Lab Results - Last 24 Hours (Table) 07/16/16 07/16/16 07/17/16 Range/Units 16:23 21:37 06:22 RBC (3.80-5.40) m/uL Hgb (11.4-16.0) gm/dL Hct (34.0-46.0) % MCHC (31.0-37.0) g/dL RDW (11.5-15.5) % BUN (7-17) mg/dL Creatinine (0.52-1.04) mg/dL Glucose (74-99) mg/dL POC Glucose (mg/dL) 234 H 166 H (75-99) mg/dL Hemoglobin A1c 8.8 H (4.2-6.1) % Total Protein (6.3-8.2) g/dL Albumin (3.5-5.0) g/dL 07/17/16 07/17/16 07/17/16 Range/Units 06:22 06:22 06:30 RBC 2.87 L (3.80-5.40) m/uL Hgb 8.4 L D (11.4-16.0) gm/dL Hct 28.1 L (34.0-46.0) % MCHC 29.8 L (31.0-37.0) g/dL RDW 20.2 H (11.5-15.5) % BUN 53 H (7-17) mg/dL Creatinine 8.59 H* (0.52-1.04) mg/dL Glucose 193 H (74-99) mg/dL POC Glucose (mg/dL) 211 H (75-99) mg/dL Hemoglobin A1c (4.2-6.1) % Total Protein 6.1 L (6.3-8.2) g/dL Albumin 3.2 L (3.5-5.0) g/dL Assessment and Plan (1) Acute pulmonary edema Status: Acute (2) Systolic congestive heart failure Status: Acute (3) Anemia Status: Acute (4) Chest pain Status: Acute (5) Chronic renal failure Status: Acute (6) Diabetes mellitus Status: Acute (7) ESRD (end stage renal disease) Status: Acute (8) H/O: CVA (cerebrovascular accident) Status: Acute (9) HTN (hypertension) Status: Acute (10) Hyperlipemia Status: Acute (11) S/P right coronary artery (RCA) stent placement Status: Acute Plan: From cardiology's perspective, we'll decrease her aspirin to 81 mg daily. Continue dialysis as well as current dose of Lasix. Order stool for occult blood. It has been explained to the patient that she may need to undergo cardiac catheterization prior to discharge. We will continue to follow. DNP note has been reviewed, I agree with a documented findings and plan of care. Patient was seen and examined.
[2016-07-17 15:29] LABS: Calcium 9.3 mg/dL (8.4-10.2); Potassium 3.7 mmol/L (3.5-5.1)
[2016-07-17 15:37] LABS: Anisocytosis Slight; CHCM 32.1; HCT 30.5 % (34.0-46.0); HDW 3.45; HGB 9.8 gm/dL (11.4-16.0); Hypochromasia Slight; MCH 30.1 pg (25.0-35.0); MCHC 32.1 g/dL (31.0-37.0); MCV 93.8 fL (80.0-100.0); Macrocytosis Slight; Mean Platelet Volume 7.4; Poikilocytosis Slight; RBC 3.25 m/uL (3.80-5.40); RDW 19.7 % (11.5-15.5); WBC 8.3 k/uL (3.8-10.6)
--- NOTE | 2016-07-17 15:42 | CONS ---
DATE OF CONSULTATION: 07/17/16 REASON FOR CONSULTATION: End-stage renal disease. HISTORY OF PRESENT ILLNESS: Patient is a 56-year-old -Israeli female with a history of end-stage renal disease, on hemodialysis on a Thursday, Thursday, Thursday schedule. Patient was admitted to the hospital yesterday with complaints of chest pain, shortness of breath, not feeling well. We tried to dialyze her yesterday, and her blood pressure had dropped and she had significant chest pain. At that time dialysis was terminated. Patient was stabilized and last night we dialyzed again. We were able to remove about 3 liters. She tolerated the procedure fairly well. Currently patient is scheduled for dialysis again. She seems to have significant fluid overload. Her troponin was as high as 10 and initial reading was 1.0 yesterday. PAST MEDICAL HISTORY: 1. End-stage renal disease. 2. Anemia of chronic disease. 3. Coronary artery disease with previous coronary stenting. 4. Dyslipidemia. 5. History of rheumatoid arthritis. 6. Previous history of CVA. PAST SURGICAL HISTORY: 1. Left upper arm AV graft. 2. Cholecystectomy. 3. Previous cardiac catheterization. 4. Coronary stent placement. 5. Hysterectomy. Current medications include: 1. Lasix. 2. Insulin. 3. Lipitor. 4. PhosLo. 5. Lopressor. 6. Amlodipine. ALLERGIES include: 1. IODINE. 2. PENICILLIN. 3. SHELLFISH. 4. CLONIDINE. FAMILY HISTORY: Noncontributory. SOCIAL HISTORY: Patient is an ex-smoker. No history of drug abuse or alcohol abuse. REVIEW OF SYSTEMS: As per HPI. Other systems negative. No diarrhea, fever, chills, abdominal pain. On examination, currently patient is comfortable. Blood pressure was 135/64, heart rate of 88 per minute. She is afebrile. EXAMINATION OF THE HEART: S1 and S2. EXAMINATION OF THE LUNGS: Bilateral breath sounds are heard. ABDOMEN: Soft, nontender. Examination of lower extremities shows no significant edema. GRAPPLE YARDER OPERATOR exam is grossly intact. Patient is moving all 4 extremities. Labs show sodium 142, potassium 3.3 from yesterday. Serum creatinine 4.97. Troponin was 10.1. ASSESSMENT: 1. End-stage renal disease, on hemodialysis on a Thursday, Thursday, Thursday schedule. Patient will be dialyzed again today with goal UF of about 1 to 2 liters as tolerated, and she will be dialyzed again tomorrow, as tomorrow is her regular day. 2. Fluid overload. We will try to avoid large ultrafiltrations to keep her hemodynamically stable with the acute myocardial infarction. 3. Acute [id number] myocardial infarction, being followed by Cardiology. Possible cardiac catheterization prior to discharge. 4. Anemia of chronic disease. 5. Secondary hyperparathyroidism and chronic kidney disease bone mineral disorder. Phosphorus was at 2.9 mg/dL. PLAN: Hemodialysis today as well as in a.m. Try to wean off nitro drip as tolerated. Repeat labs in a.m. MTDD
--- NOTE | 2016-07-17 15:42 | P.PN ---
Subjective 56-year-old female with history of CAD ESRD on hemodialysis Thursday comes in the hospital with acute onset difficulty breathing that woke her up at 2 AM on the day of admission. Patient was noted to be in significant fluid overload patient was noted to have a troponin elevation that peaked at 10. Patient was also noted to have a glucose level around 500. In the emergency room patient was given 3 L of crystalloids for treatment of DKA however patient did not have an anion gap Patient was started on insulin drip. During my evaluation patient was on 100% FiO2 discussed emergent dialysis again DC'd IV fluids changed to insulin drip to home regimen On 07/17/2016 Patient states that her breathing is improved currently on 5 L of supplemental oxygen denies headaches, blurry vision, nausea, vomiting, diarrhea. Patient is also on 10 mics and nitroglycerin at this time Denies any additional episodes of chest pain. Objective - Vital Signs Vital signs: Vital Signs Temp 98.2 F 07/17/16 12:00 Pulse 92 07/17/16 12:26 Resp 18 07/17/16 12:00 BP 135/64 07/17/16 12:00 Pulse Ox 100 07/17/16 12:00 Intake & Output 07/16/16 07/17/16 07/17/16 18:59 06:59 18:59 Intake Total 137.692 178 824 Balance 137.692 178 824 Weight 72.121 kg 69.3 kg Intake: Intake, IV Titration 137.692 178 824 Amount Insulin Regular 100 unit 39.692 In Sodium Chloride 0.9% 100 ml @ 0.1 UNITS/KG/HR 7.28 mls/hr IV .[id number] [facility] Rx#:[id number] Nitroglycerin-D5w Pmx 50 18 18 24 mg In Dextrose/Water 1 250ml.bag @ 10 MCG/MIN 3 mls/hr IV .Q24H [facility] Rx#: [id number] Sodium Chloride 0.9% 1, 80 160 800 000 ml @ 100 mls/hr IV . Q10H [facility] Rx#:[id number] Oral 0 - Exam Physical exam Gen. appearance oriented 3 in no distress Neck is supple no JVD Lungs trace crackles at the bases Palpable thrill at the left upper arm Heart S1-S2 heard regular rate and rhythm no murmurs appreciated Abdomen is soft nontender no organomegaly bowel sounds are intact Neurologically cranial nerves II-12 grossly intact no focal motor or sensory deficits noted Skin no abnormalities appreciated - Labs CBC & Chem 7: 07/17/16 06:22 07/17/16 14:46 Labs: Abnormal Lab Results - Last 24 Hours (Table) 07/16/16 07/16/16 07/17/16 Range/Units 16:23 21:37 06:22 RBC (3.80-5.40) m/uL Hgb (11.4-16.0) gm/dL Hct (34.0-46.0) % MCHC (31.0-37.0) g/dL RDW (11.5-15.5) % Chloride (98-107) mmol/L BUN (7-17) mg/dL Creatinine (0.52-1.04) mg/dL Glucose (74-99) mg/dL POC Glucose (mg/dL) 234 H 166 H (75-99) mg/dL Hemoglobin A1c 8.8 H (4.2-6.1) % Total Protein (6.3-8.2) g/dL Albumin (3.5-5.0) g/dL 07/17/16 07/17/16 07/17/16 Range/Units 06:22 06:22 06:30 RBC 2.87 L (3.80-5.40) m/uL Hgb 8.4 L D (11.4-16.0) gm/dL Hct 28.1 L (34.0-46.0) % MCHC 29.8 L (31.0-37.0) g/dL RDW 20.2 H (11.5-15.5) % Chloride (98-107) mmol/L BUN 53 H (7-17) mg/dL Creatinine 8.59 H* (0.52-1.04) mg/dL Glucose 193 H (74-99) mg/dL POC Glucose (mg/dL) 211 H (75-99) mg/dL Hemoglobin A1c (4.2-6.1) % Total Protein 6.1 L (6.3-8.2) g/dL Albumin 3.2 L (3.5-5.0) g/dL 07/17/16 Range/Units 14:46 RBC (3.80-5.40) m/uL Hgb (11.4-16.0) gm/dL Hct (34.0-46.0) % MCHC (31.0-37.0) g/dL RDW (11.5-15.5) % Chloride 96 L (98-107) mmol/L BUN 27 H (7-17) mg/dL Creatinine 4.72 H (0.52-1.04) mg/dL Glucose 129 H (74-99) mg/dL POC Glucose (mg/dL) (75-99) mg/dL Hemoglobin A1c (4.2-6.1) % Total Protein (6.3-8.2) g/dL Albumin (3.5-5.0) g/dL Assessment and Plan Plan: #1 acute hypoxic respiratory failure secondary to diastolic heart failure in a patient with ESRD on hemodialysis #2 acute non-Q-wave myocardial infarction in a patient with CAD #3 ESRD #4 acute on chronic anemia with underlying anemia of ESRD this appears to be a abnormal drop repeat hemoglobin #5 history of hypertension #6 diabetes mellitus type 2 #7 isolated episodes of hyperglycemia likely from stress #8 accelerated hypertension Plan Titrated down nitroglycerin as tolerated continue current medications will likely need a cardiac catheterization Total of 4 L were removed on ultrafiltration Patient will need additional fluid removal titrate down oxygen as tolerated With the drop in hemoglobin and do not see any physical exam findings of a bleed. Repeat hemoglobin a fecal hemoglobin appears to be 8.7 we'll need to investigate further
[2016-07-17 16:20] LABS: Glucose,Whole Blood 182 mg/dL (75-99)
[2016-07-17] MEDS: ACETAMINOPHEN TAB 325 MG TAB PO PRN (16:43)
[2016-07-17] MEDS: NITROGLYCERIN-D5W PMX 50 MG in DEXTROSE/WATER 1 250ML.BAG IV SCH (20:12)
[2016-07-17] MEDS: INSULIN GLARGINE 100 UNIT/ML 10 ML VIAL SQ SCH (20:13)
[2016-07-17 21:04] LABS: Glucose,Whole Blood 254 mg/dL (75-99)
[2016-07-18] MEDS: SODIUM CHLORIDE 0.9% 1,000 ML IV SCH (02:55)
[2016-07-18 06:22] LABS: Glucose,Whole Blood 372 mg/dL (75-99)
[2016-07-18] MEDS: INSULIN LISPRO (humaLOG) 300 UNIT/3 ML VIAL SQ SCH ×7 (07:02→21:10)
[2016-07-18 07:41] LABS: Anisocytosis Slight; Basophils % (A) 0 %; CH 29.4; CHCM 30.2; Eosinophils # (A) 0.1 k/uL (0-0.7); Eosinophils % (A) 1 %; HCT 31.8 % (34.0-46.0); HDW 3.14; HGB 9.8 gm/dL (11.4-16.0); Hypochromasia Marked; Luc # (Auto) 0.16; Luc % (Auto) 2; Lymphocytes # (A) 0.6 k/uL (1.0-4.8); Lymphocytes % (A) 7 %; MCHC 30.7 g/dL (31.0-37.0); MCV 97.7 fL (80.0-100.0); Macrocytosis Slight; Mean Platelet Volume 7.3; Monocytes # (A) 0.3 k/uL (0-1.0); Monocytes % (A) 4 %; Neutrophils # (A) 6.6 k/uL (1.3-7.7); Neutrophils % (A) 85 %; RBC 3.26 m/uL (3.80-5.40); RDW 19.4 % (11.5-15.5); WBC 7.8 k/uL (3.8-10.6); WBC (Perox) 8.36
[2016-07-18 08:15] LABS: Calcium 8.7 mg/dL (8.4-10.2); Potassium 4.6 mmol/L (3.5-5.1); Total Bilirubin 0.6 mg/dL (0.2-1.3); Total Protein 6.5 g/dL (6.3-8.2)
[2016-07-18] MEDS: IPRATROPIUM-ALBUTEROL 3 ML NEB INHALATION SCH ×4 (08:40→20:30)
[2016-07-18] MEDS: METOPROLOL TARTRATE 50 MG TAB PO SCH ×2 (09:20→21:04)
[2016-07-18] MEDS: ASPIRIN 81 MG CHEW PO SCH (09:20)
[2016-07-18] MEDS: CALCIUM ACETATE 667 MG CAP PO SCH ×3 (09:20→17:10)
[2016-07-18] MEDS: CLOPIDOGREL 75 MG TAB PO SCH (09:21)
[2016-07-18] MEDS: FUROSEMIDE 80 MG TAB PO SCH ×2 (09:21→17:10)
--- NOTE | 2016-07-18 09:52 | PN ---
Patient is seen for followup for end-stage renal disease. She was admitted to the hospital with shortness of breath. She was in fluid overload. Patient also had a [id number] NM. She is being followed by Cardiology and there is consideration for cardiac catheterization. Patient was dialyzed 2 days in a row with total UF of about 5 L. Patient is scheduled for hemodialysis again today. She is feeling much better. O2 requirements are down to only 2 L via nasal cannula. On examination, blood pressure is 136/63, heart rate 93 per minute. She is afebrile. Examination of the heart, S1 and S2. Examination of the lungs, decreased breath sounds in bases. Abdomen is soft, nontender. Examination of lower extremities shows no evidence of edema. SWITCH MAKER exam is grossly intact. Patient is moving all 4 extremities. Labs show sodium 137, potassium 4.6. Hemoglobin 9.8 g/dL. ASSESSMENT: 1. End-stage renal disease on hemodialysis on a Thursday, Thursday, Thursday schedule. Patient is scheduled for hemodialysis today. She has a left upper arm AV graft. 2. Congestive heart failure/fluid overload, currently improved. Will try again for about 2 to 2.5 L today. 3. Acute non-ST elevation myocardial infarction being considered for cardiac catheterization. Patient had a coronary stent placed in the summer of last year. PLAN: Hemodialysis today. Awaiting cardiology decision regarding cardiac catheterization.
[2016-07-18 11:44] LABS: Glucose,Whole Blood 331 mg/dL (75-99)
[2016-07-18] MEDS ORDERED: GELATIN SPONGE,ABSORB (SMALL) 1 EACH SPONGE ONE (15:00)
--- NOTE | 2016-07-18 15:04 | P.PN ---
Subjective Principal diagnosis: CHF Is a pleasant 56-year-old -[place] female who follows with Dr. Calixto in the office. She has a past medical history significant for CAD and status post attempted angioplasty of the right coronary artery, diabetes, hypertension, dyslipidemia, end-stage renal disease on hemodialysis. She was brought to the hospital by her because of chest discomfort and shortness of breath. It been experiencing intermittent episodes of chest discomfort over the last several weeks. Right ear admission she experienced a more profound chest discomfort and was associated with diaphoresis and shortness of breath. Upon presentation the emergency room she was found to be in congestive heart failure exacerbation. He is also found to be positive for an acute non-ST elevated myocardial infarction with a troponin level of around 10. Her BNP on admission was 67,800. Today is patient's third day in a row of undergoing dialysis. Overall she is feeling quite a bit better. Her weight is down a bit more today. Hemoglobin today 9.8 creatinine of 6.78. Objective - Vital Signs Vital signs: Vital Signs Temp 97.4 F L 07/18/16 11:45 Pulse 93 07/18/16 11:45 Resp 17 07/18/16 11:45 BP 161/70 07/18/16 11:45 Pulse Ox 100 07/18/16 11:45 Intake & Output 07/17/16 07/18/16 07/18/16 18:59 06:59 18:59 Intake Total 880.9 1148.583 360 Output Total 0 0 0 Balance 880.9 1148.583 360 Weight 68.8 kg Intake: Intake, IV Titration 880.9 188.583 Amount Nitroglycerin-D5w Pmx 50 80.9 8.583 mg In Dextrose/Water 1 250ml.bag @ 10 MCG/MIN 3 mls/hr IV .Q24H [facility] Rx#: [id number] Sodium Chloride 0.9% 1, 800 000 ml @ 100 mls/hr IV . Q10H [facility] Rx#:[id number] Sodium Chloride 0.9% 1, 180 000 ml @ 20 mls/hr IV . Q24H [facility] Rx#:[id number] Oral 0 960 360 Output: Urine 0 0 0 Other: # Voids 0 0 0 # Bowel Movements 0 0 - Exam PHYSICAL EXAMINATION: HEENT: Head is atraumatic, normocephalic. Pupils equal, round. Neck is supple. There is no elevated jugular venous pressure. HEART EXAMINATION: Heart sounds regular, S1 and S2 normal. No murmur or gallop heard. CHEST EXAMINATION: Lungs diminished air entry to bilateral bases. No chest wall tenderness is noted on palpation or with deep breathing. ABDOMEN: Soft, nontender. Bowel sounds are heard. No organomegaly noted. EXTREMITIES: 2+ peripheral pulses with evidence of trace peripheral edema and no calf tenderness noted. NEUROLOGIC patient is awake, alert and oriented x3. . - Labs CBC & Chem 7: 07/18/16 06:55 07/18/16 06:55 Labs: Abnormal Lab Results - Last 24 Hours (Table) 07/17/16 07/17/16 07/17/16 Range/Units 14:46 14:46 16:18 RBC 3.25 L (3.80-5.40) m/uL Hgb 9.8 L (11.4-16.0) gm/dL Hct 30.5 L (34.0-46.0) % MCHC (31.0-37.0) g/dL RDW 19.7 H (11.5-15.5) % Lymphocytes # (1.0-4.8) k/uL Chloride 96 L (98-107) mmol/L BUN 27 H (7-17) mg/dL Creatinine 4.72 H (0.52-1.04) mg/dL Glucose 129 H (74-99) mg/dL POC Glucose (mg/dL) 182 H (75-99) mg/dL 07/17/16 07/18/16 07/18/16 Range/Units 21:03 06:21 06:55 RBC (3.80-5.40) m/uL Hgb (11.4-16.0) gm/dL Hct (34.0-46.0) % MCHC (31.0-37.0) g/dL RDW (11.5-15.5) % Lymphocytes # (1.0-4.8) k/uL Chloride 94 L (98-107) mmol/L BUN 45 H (7-17) mg/dL Creatinine 6.78 H* (0.52-1.04) mg/dL Glucose 373 H (74-99) mg/dL POC Glucose (mg/dL) 254 H 372 H (75-99) mg/dL 07/18/16 07/18/16 Range/Units 06:55 11:43 RBC 3.26 L (3.80-5.40) m/uL Hgb 9.8 L (11.4-16.0) gm/dL Hct 31.8 L (34.0-46.0) % MCHC 30.7 L (31.0-37.0) g/dL RDW 19.4 H (11.5-15.5) % Lymphocytes # 0.6 L (1.0-4.8) k/uL Chloride (98-107) mmol/L BUN (7-17) mg/dL Creatinine (0.52-1.04) mg/dL Glucose (74-99) mg/dL POC Glucose (mg/dL) 331 H (75-99) mg/dL Assessment and Plan Plan: Assessment and plan #1 acute pulmonary edema #2 acute on chronic systolic congestive heart failure 3 anemia #4 chest pain, positive for non-ST elevated MT #5 end-stage renal disease, on hemodialysis #6 diabetes #7 hypertension #8 hyperlipidemia From cardiology's perspective, medications were reviewed and will continue the same. It was again discussed with the patient that she will likely need to undergo cardiac catheterization prior to discharge. We will continue to follow the patient and provide further recommendations accordingly. PLEATER note has been reviewed, I agree with a documented findings and plan of care. Patient was seen and examined.
--- NOTE | 2016-07-18 16:14 | P.PN ---
Subjective 56-year-old female with history of CAD ESRD on hemodialysis Thursday comes in the hospital with acute onset difficulty breathing that woke her up at 2 AM on the day of admission. Patient was noted to be in significant fluid overload patient was noted to have a troponin elevation that peaked at 10. Patient was also noted to have a glucose level around 500. In the emergency room patient was given 3 L of crystalloids for treatment of DKA however patient did not have an anion gap Patient was started on insulin drip. During my evaluation patient was on 100% FiO2 discussed emergent dialysis again DC'd IV fluids changed to insulin drip to home regimen On 07/17/2016 Patient states that her breathing is improved currently on 5 L of supplemental oxygen denies headaches, blurry vision, nausea, vomiting, diarrhea. Patient is also on 10 mics and nitroglycerin at this time Denies any additional episodes of chest pain. 07/18/2016 Currently on 2 L supplement oxygen denies having any headaches blurry vision chest pain difficulty breathing nausea vomiting or diarrhea. Objective - Vital Signs Vital signs: Vital Signs Temp 97.4 F L 07/18/16 11:45 Pulse 93 07/18/16 11:45 Resp 17 07/18/16 11:45 BP 161/70 07/18/16 11:45 Pulse Ox 100 07/18/16 11:45 Intake & Output 07/17/16 07/18/16 07/18/16 18:59 06:59 18:59 Intake Total 880.9 1148.583 360 Output Total 0 0 0 Balance 880.9 1148.583 360 Weight 68.8 kg Intake: Intake, IV Titration 880.9 188.583 Amount Nitroglycerin-D5w Pmx 50 80.9 8.583 mg In Dextrose/Water 1 250ml.bag @ 10 MCG/MIN 3 mls/hr IV .Q24H [facility] Rx#: [id number] Sodium Chloride 0.9% 1, 800 000 ml @ 100 mls/hr IV . Q10H [facility] Rx#:[id number] Sodium Chloride 0.9% 1, 180 000 ml @ 20 mls/hr IV . Q24H [facility] Rx#:[id number] Oral 0 960 360 Output: Urine 0 0 0 Other: # Voids 0 0 0 # Bowel Movements 0 0 - Exam Physical exam Gen. appearance oriented 3 in no distress Neck is supple no JVD Lungs good air movement no rhonchi wheezing or crackles Palpable thrill at the left upper arm Heart S1-S2 heard regular rate and rhythm no murmurs appreciated Abdomen is soft nontender no organomegaly bowel sounds are intact Neurologically cranial nerves II-12 grossly intact no focal motor or sensory deficits noted Skin no abnormalities appreciated - Labs CBC & Chem 7: 07/18/16 06:55 07/18/16 06:55 Labs: Abnormal Lab Results - Last 24 Hours (Table) 07/17/16 07/17/16 07/18/16 Range/Units 16:18 21:03 06:21 RBC (3.80-5.40) m/uL Hgb (11.4-16.0) gm/dL Hct (34.0-46.0) % MCHC (31.0-37.0) g/dL RDW (11.5-15.5) % Lymphocytes # (1.0-4.8) k/uL Chloride (98-107) mmol/L BUN (7-17) mg/dL Creatinine (0.52-1.04) mg/dL Glucose (74-99) mg/dL POC Glucose (mg/dL) 182 H 254 H 372 H (75-99) mg/dL 07/18/16 07/18/16 07/18/16 Range/Units 06:55 06:55 11:43 RBC 3.26 L (3.80-5.40) m/uL Hgb 9.8 L (11.4-16.0) gm/dL Hct 31.8 L (34.0-46.0) % MCHC 30.7 L (31.0-37.0) g/dL RDW 19.4 H (11.5-15.5) % Lymphocytes # 0.6 L (1.0-4.8) k/uL Chloride 94 L (98-107) mmol/L BUN 45 H (7-17) mg/dL Creatinine 6.78 H* (0.52-1.04) mg/dL Glucose 373 H (74-99) mg/dL POC Glucose (mg/dL) 331 H (75-99) mg/dL Assessment and Plan Plan: #1 acute hypoxic respiratory failure secondary to diastolic heart failure in a patient with ESRD on hemodialysis #2 acute non-Q-wave myocardial infarction in a patient with CAD #3 ESRD #4 acute on chronic anemia with underlying anemia of ESRD this appears to be a abnormal drop repeat hemoglobin #5 history of hypertension #6 diabetes mellitus type 2 #7 isolated episodes of hyperglycemia likely from stress #8 accelerated hypertension Plan Improved oral fluid status currently on 2 L supplement oxygen denies having any episodes of chest pain in regards to cardiac catheterization patient is requested to discuss further over the weekend prior to making his decision Continue ongoing care blood pressures are stable
[2016-07-18 16:32] LABS: Glucose,Whole Blood 174 mg/dL (75-99)
[2016-07-18] MEDS: BENZOCAINE/MENTHOL LOZENG 1 EACH LOZENGE MUCOUS MEM PRN ×2 (17:10→21:04)
[2016-07-18] MEDS: HEPARIN SODIUM,PORCINE 5,000 UNIT/ML 1 ML VIAL SQ SCH ×2 (17:10→23:21)
[2016-07-18] MEDS: ACETAMINOPHEN TAB 325 MG TAB PO PRN (17:20)
[2016-07-18 20:10] LABS: Glucose,Whole Blood 203 mg/dL (75-99)
[2016-07-18] MEDS: ATORVASTATIN 40 MG TAB PO SCH (21:04)
[2016-07-18] MEDS: ALPRAZolam 0.25 MG TAB PO SCH (21:04)
[2016-07-18] MEDS: INSULIN GLARGINE 100 UNIT/ML 10 ML VIAL SQ SCH (21:10)
[2016-07-19 05:52] LABS: Glucose,Whole Blood 202 mg/dL (75-99)
[2016-07-19] MEDS: BENZOCAINE/MENTHOL LOZENG 1 EACH LOZENGE MUCOUS MEM PRN ×2 (06:06→21:05)
[2016-07-19 06:14] VITALS: RESP 16
[2016-07-19 06:48] LABS: Anisocytosis Slight; Basophils % (A) 0 %; CH 29.7; CHCM 30.8; Eosinophils # (A) 0.2 k/uL (0-0.7); Eosinophils % (A) 3 %; HCT 30.6 % (34.0-46.0); HDW 3.32; HGB 9.2 gm/dL (11.4-16.0); Hypochromasia Moderate; Luc # (Auto) 0.16; Luc % (Auto) 2; Lymphocytes # (A) 0.9 k/uL (1.0-4.8); Lymphocytes % (A) 14 %; MCHC 29.9 g/dL (31.0-37.0); MCV 96.7 fL (80.0-100.0); Macrocytosis Slight; Mean Platelet Volume 7.5; Monocytes # (A) 0.4 k/uL (0-1.0); Monocytes % (A) 6 %; Neutrophils % (A) 76 %; RBC 3.16 m/uL (3.80-5.40); RDW 19.8 % (11.5-15.5); WBC 6.5 k/uL (3.8-10.6); WBC (Perox) 7.02
[2016-07-19] MEDS: CALCIUM ACETATE 667 MG CAP PO SCH ×3 (07:00→18:19)
[2016-07-19] MEDS: INSULIN LISPRO (humaLOG) 300 UNIT/3 ML VIAL SQ SCH ×7 (07:01→21:05)
[2016-07-19 07:05] LABS: Calcium 9.2 mg/dL (8.4-10.2); Potassium 4.1 mmol/L (3.5-5.1); Total Bilirubin 0.5 mg/dL (0.2-1.3); Total Protein 6.3 g/dL (6.3-8.2)
[2016-07-19] MEDS: CLOPIDOGREL 75 MG TAB PO SCH (08:41)
[2016-07-19] MEDS: HEPARIN SODIUM,PORCINE 5,000 UNIT/ML 1 ML VIAL SQ SCH ×3 (08:41→23:23)
[2016-07-19] MEDS: METOPROLOL TARTRATE 50 MG TAB PO SCH ×2 (08:41→20:23)
[2016-07-19] MEDS: ASPIRIN 81 MG CHEW PO SCH (08:41)
[2016-07-19] MEDS: FUROSEMIDE 80 MG TAB PO SCH ×2 (08:41→17:29)
--- NOTE | 2016-07-19 09:10 | P.PN ---
Subjective Patient is seen in follow-up for end-stage renal disease. She is maintained on hemodialysis on a Thursday schedule via AV graft. He shouldn't presented with chest pain and fluid overload. She underwent hemodialysis the last 3 days. Her dyspnea has improved. No vomiting or diarrhea. Appetite is fair. Complaining of sore throat. Vital signs are stable. General: The patient appeared well nourished and normally developed. HEENT: Head exam is unremarkable. Neck is without jugular venous distension. LUNGS: Lungs are clear to auscultation and percussion. Breath sounds decreased. HEART: Rate and Rhythm are regular. First and second heart sounds normal. No murmurs, rubs or gallops. ABDOMEN: Abdominal exam reveals normal bowel sounds. Non-tender and non- distended. No evidence of peritonitis. EXTREMITITES: No clubbing, cyanosis, or edema. Objective - Vital Signs Vital signs: Vital Signs Temp 97.6 F 07/19/16 08:42 Pulse 96 07/19/16 08:42 Resp 16 07/19/16 08:48 BP 163/70 07/19/16 08:42 Pulse Ox 97 07/19/16 08:48 Intake & Output 07/18/16 07/19/16 07/19/16 18:59 06:59 18:59 Intake Total 600 300 360 Output Total 0 800 Balance 600 -500 360 Weight 68.4 kg Intake: Oral 600 300 360 Output: Urine 0 800 Other: # Voids 0 1 # Bowel Movements 0 - Labs CBC & Chem 7: 07/19/16 06:15 07/19/16 06:15 Labs: Abnormal Lab Results - Last 24 Hours (Table) 07/18/16 07/18/16 07/18/16 Range/Units 11:43 16:31 20:08 RBC (3.80-5.40) m/uL Hgb (11.4-16.0) gm/dL Hct (34.0-46.0) % MCHC (31.0-37.0) g/dL RDW (11.5-15.5) % Lymphocytes # (1.0-4.8) k/uL BUN (7-17) mg/dL Creatinine (0.52-1.04) mg/dL Glucose (74-99) mg/dL POC Glucose (mg/dL) 331 H 174 H 203 H (75-99) mg/dL AST (14-36) U/L Albumin (3.5-5.0) g/dL 07/19/16 07/19/16 07/19/16 Range/Units 05:50 06:15 06:15 RBC 3.16 L (3.80-5.40) m/uL Hgb 9.2 L (11.4-16.0) gm/dL Hct 30.6 L (34.0-46.0) % MCHC 29.9 L (31.0-37.0) g/dL RDW 19.8 H (11.5-15.5) % Lymphocytes # 0.9 L (1.0-4.8) k/uL BUN 34 H (7-17) mg/dL Creatinine 5.30 H* (0.52-1.04) mg/dL Glucose 168 H (74-99) mg/dL POC Glucose (mg/dL) 202 H (75-99) mg/dL AST 13 L (14-36) U/L Albumin 3.2 L (3.5-5.0) g/dL Assessment and Plan Plan: Assessment: #1. End-stage renal disease maintained on hemodialysis on a Thursday schedule via AV graft. #2. Non-ST elevated myocardial infarction. #3. Volume overload. Improved. #4. Chronic kidney disease mineral bone disease. #5. Anemia of chronic kidney disease. Rule out iron deficiency. #6. Insulin-dependent diabetes mellitus. Plan: Hemodialysis Thursday. Add Tylenol as needed for pain. Check iron studies. Maintain PhosLo with meals. Cardiology following. Being considered for cardiac catheterization this admission.
[2016-07-19] MEDS: IPRATROPIUM-ALBUTEROL 3 ML NEB INHALATION SCH ×4 (09:57→20:15)
[2016-07-19 10:48] LABS: % Iron Saturation 19.9 % (20-50)
[2016-07-19 11:31] LABS: Glucose,Whole Blood 176 mg/dL (75-99)
--- NOTE | 2016-07-19 12:20 | P.PN ---
Subjective Principal diagnosis: CHF Is a pleasant 56-year-old -[place] female who follows with Dr. Calixto in the office. She has a past medical history significant for CAD and status post attempted angioplasty of the right coronary artery, diabetes, hypertension, dyslipidemia, end-stage renal disease on hemodialysis. She was brought to the hospital by her because of chest discomfort and shortness of breath. It been experiencing intermittent episodes of chest discomfort over the last several weeks. Right ear admission she experienced a more profound chest discomfort and was associated with diaphoresis and shortness of breath. Upon presentation the emergency room she was found to be in congestive heart failure exacerbation. He is also found to be positive for an acute non-ST elevated myocardial infarction with a troponin level of around 10. Her BNP on admission was 67,800. On examination today, patient is sitting up in a chair. She denies complaints of shortness of breath, chest discomfort, or edema. Does complain of nasal congestion, sinus pain, postnasal drip causing a cough and sore throat. Objective - Vital Signs Vital signs: Vital Signs Temp 97.6 F 07/19/16 08:42 Pulse 90 07/19/16 11:38 Resp 16 07/19/16 08:48 BP 163/70 07/19/16 08:42 Pulse Ox 97 07/19/16 08:48 Intake & Output 07/18/16 07/19/16 07/19/16 18:59 06:59 18:59 Intake Total 600 300 360 Output Total 0 800 Balance 600 -500 360 Weight 68.4 kg Intake: Oral 600 300 360 Output: Urine 0 800 Other: # Voids 0 1 # Bowel Movements 0 - Exam PHYSICAL EXAMINATION: HEENT: Head is atraumatic, normocephalic. Pupils equal, round. Neck is supple. There is no elevated jugular venous pressure. HEART EXAMINATION: Heart sounds regular, S1 and S2 normal. No murmur or gallop heard. CHEST EXAMINATION: Lungs diminished air entry to bilateral bases. No chest wall tenderness is noted on palpation or with deep breathing. ABDOMEN: Soft, nontender. Bowel sounds are heard. No organomegaly noted. EXTREMITIES: 2+ peripheral pulses with evidence of trace peripheral edema and no calf tenderness noted. NEUROLOGIC patient is awake, alert and oriented x3. . - Labs CBC & Chem 7: 07/19/16 06:15 07/19/16 06:15 Labs: Abnormal Lab Results - Last 24 Hours (Table) 07/18/16 07/18/16 07/19/16 Range/Units 16:31 20:08 05:50 RBC (3.80-5.40) m/uL Hgb (11.4-16.0) gm/dL Hct (34.0-46.0) % MCHC (31.0-37.0) g/dL RDW (11.5-15.5) % Lymphocytes # (1.0-4.8) k/uL BUN (7-17) mg/dL Creatinine (0.52-1.04) mg/dL Glucose (74-99) mg/dL POC Glucose (mg/dL) 174 H 203 H 202 H (75-99) mg/dL Iron (37-170) ug/dL TIBC (265-497) ug/dL % Saturation (20-50) % Ferritin (11-264) ng/mL AST (14-36) U/L Albumin (3.5-5.0) g/dL 07/19/16 07/19/16 07/19/16 Range/Units 06:15 06:15 06:15 RBC 3.16 L (3.80-5.40) m/uL Hgb 9.2 L (11.4-16.0) gm/dL Hct 30.6 L (34.0-46.0) % MCHC 29.9 L (31.0-37.0) g/dL RDW 19.8 H (11.5-15.5) % Lymphocytes # 0.9 L (1.0-4.8) k/uL BUN 34 H (7-17) mg/dL Creatinine 5.30 H* (0.52-1.04) mg/dL Glucose 168 H (74-99) mg/dL POC Glucose (mg/dL) (75-99) mg/dL Iron 35 L (37-170) ug/dL TIBC 176 L (265-497) ug/dL % Saturation 19.9 L (20-50) % Ferritin 699 H (11-264) ng/mL AST 13 L (14-36) U/L Albumin 3.2 L (3.5-5.0) g/dL 07/19/16 Range/Units 11:29 RBC (3.80-5.40) m/uL Hgb (11.4-16.0) gm/dL Hct (34.0-46.0) % MCHC (31.0-37.0) g/dL RDW (11.5-15.5) % Lymphocytes # (1.0-4.8) k/uL BUN (7-17) mg/dL Creatinine (0.52-1.04) mg/dL Glucose (74-99) mg/dL POC Glucose (mg/dL) 176 H (75-99) mg/dL Iron (37-170) ug/dL TIBC (265-497) ug/dL % Saturation (20-50) % Ferritin (11-264) ng/mL AST (14-36) U/L Albumin (3.5-5.0) g/dL Assessment and Plan Plan: Assessment and plan #1 acute pulmonary edema #2 acute on chronic systolic congestive heart failure 3 anemia #4 chest pain, positive for non-ST elevated DE #5 end-stage renal disease, on hemodialysis #6 diabetes #7 hypertension #8 hyperlipidemia #9 rhinosinusitis with sore throat, likely viral From cardiology's perspective, medications were reviewed and will continue the same. Due to patient's current complaints of a cold, we will not proceed with cardiac catheterization this admission. We anticipate the patient will be discharged home tomorrow and we will follow-up with the cardiac catheterization as an outpatient. NIB FINISHER note has been reviewed, I agree with a documented findings and plan of care. Patient was seen and examined.
--- NOTE | 2016-07-19 15:51 | P.PN ---
Subjective 56-year-old female with history of CAD ESRD on hemodialysis Thursday comes in the hospital with acute onset difficulty breathing that woke her up at 2 AM on the day of admission. Patient was noted to be in significant fluid overload patient was noted to have a troponin elevation that peaked at 10. Patient was also noted to have a glucose level around 500. In the emergency room patient was given 3 L of crystalloids for treatment of DKA however patient did not have an anion gap Patient was started on insulin drip. During my evaluation patient was on 100% FiO2 discussed emergent dialysis again DC'd IV fluids changed to insulin drip to home regimen On 07/17/2016 Patient states that her breathing is improved currently on 5 L of supplemental oxygen denies headaches, blurry vision, nausea, vomiting, diarrhea. Patient is also on 10 mics and nitroglycerin at this time Denies any additional episodes of chest pain. 07/18/2016 Currently on 2 L supplement oxygen denies having any headaches blurry vision chest pain difficulty breathing nausea vomiting or diarrhea. 07/19/2001 Currently on room air denies having any headaches blurry vision, nausea, vomiting. Patient states to have some nasal discharge and frontal headache Objective - Vital Signs Vital signs: Vital Signs Temp 97.7 F 07/19/16 12:00 Pulse 88 07/19/16 15:46 Resp 16 07/19/16 12:00 BP 129/62 07/19/16 12:00 Pulse Ox 95 07/19/16 12:00 Intake & Output 07/18/16 07/19/16 07/19/16 18:59 06:59 18:59 Intake Total 600 300 720 Output Total 0 800 400 Balance 600 -500 320 Weight 68.4 kg Intake: Oral 600 300 720 Output: Urine 0 800 400 Other: # Voids 0 1 1 # Bowel Movements 0 - Exam Physical exam Gen. appearance oriented 3 in no distress Neck is supple no JVD Lungs good air movement no rhonchi wheezing or crackles Palpable thrill at the left upper arm Heart S1-S2 heard regular rate and rhythm no murmurs appreciated Abdomen is soft nontender no organomegaly bowel sounds are intact Neurologically cranial nerves II-12 grossly intact no focal motor or sensory deficits noted Skin no abnormalities appreciated - Labs CBC & Chem 7: 07/19/16 06:15 07/19/16 06:15 Labs: Abnormal Lab Results - Last 24 Hours (Table) 07/18/16 07/18/16 07/19/16 Range/Units 16:31 20:08 05:50 RBC (3.80-5.40) m/uL Hgb (11.4-16.0) gm/dL Hct (34.0-46.0) % MCHC (31.0-37.0) g/dL RDW (11.5-15.5) % Lymphocytes # (1.0-4.8) k/uL BUN (7-17) mg/dL Creatinine (0.52-1.04) mg/dL Glucose (74-99) mg/dL POC Glucose (mg/dL) 174 H 203 H 202 H (75-99) mg/dL Iron (37-170) ug/dL TIBC (265-497) ug/dL % Saturation (20-50) % Ferritin (11-264) ng/mL AST (14-36) U/L Albumin (3.5-5.0) g/dL 07/19/16 07/19/16 07/19/16 Range/Units 06:15 06:15 06:15 RBC 3.16 L (3.80-5.40) m/uL Hgb 9.2 L (11.4-16.0) gm/dL Hct 30.6 L (34.0-46.0) % MCHC 29.9 L (31.0-37.0) g/dL RDW 19.8 H (11.5-15.5) % Lymphocytes # 0.9 L (1.0-4.8) k/uL BUN 34 H (7-17) mg/dL Creatinine 5.30 H* (0.52-1.04) mg/dL Glucose 168 H (74-99) mg/dL POC Glucose (mg/dL) (75-99) mg/dL Iron 35 L (37-170) ug/dL TIBC 176 L (265-497) ug/dL % Saturation 19.9 L (20-50) % Ferritin 699 H (11-264) ng/mL AST 13 L (14-36) U/L Albumin 3.2 L (3.5-5.0) g/dL 07/19/16 Range/Units 11:29 RBC (3.80-5.40) m/uL Hgb (11.4-16.0) gm/dL Hct (34.0-46.0) % MCHC (31.0-37.0) g/dL RDW (11.5-15.5) % Lymphocytes # (1.0-4.8) k/uL BUN (7-17) mg/dL Creatinine (0.52-1.04) mg/dL Glucose (74-99) mg/dL POC Glucose (mg/dL) 176 H (75-99) mg/dL Iron (37-170) ug/dL TIBC (265-497) ug/dL % Saturation (20-50) % Ferritin (11-264) ng/mL AST (14-36) U/L Albumin (3.5-5.0) g/dL Assessment and Plan Plan: #1 acute hypoxic respiratory failure secondary to diastolic heart failure in a patient with ESRD on hemodialysis #2 acute non-Q-wave myocardial infarction in a patient with CAD #3 ESRD #4 acute on chronic anemia with underlying anemia of ESRD this appears to be a abnormal drop repeat hemoglobin #5 history of hypertension #6 diabetes mellitus type 2 #7 isolated episodes of hyperglycemia likely from stress #8 accelerated hypertension Plan We'll give a dose of prednisone today start the patient on Zithromax for sinusitis Patient apparently will be brought back for cardiac catheterization and further recommendations by cardiology Hence we'll likely discharge the patient home tomorrow.
[2016-07-19] MEDS ORDERED: predniSONE 20 MG TAB PO STA (15:53)
[2016-07-19 16:19] LABS: Glucose,Whole Blood 142 mg/dL (75-99)
[2016-07-19] MEDS: AZITHROMYCIN 250 MG TAB PO SCH (16:32)
[2016-07-19] MEDS: ATORVASTATIN 40 MG TAB PO SCH (20:23)
[2016-07-19] MEDS: ALPRAZolam 0.25 MG TAB PO SCH (20:23)
[2016-07-19] MEDS: INSULIN GLARGINE 100 UNIT/ML 10 ML VIAL SQ SCH (21:05)
[2016-07-19 21:11] LABS: Glucose,Whole Blood 212 mg/dL (75-99)
[2016-07-20 06:35] LABS: Glucose,Whole Blood 417 mg/dL (75-99)
[2016-07-20] MEDS: INSULIN LISPRO (humaLOG) 300 UNIT/3 ML VIAL SQ SCH ×4 (07:00→12:18)
[2016-07-20] MEDS: CALCIUM ACETATE 667 MG CAP PO SCH ×2 (07:00→12:17)
[2016-07-20] MEDS: IPRATROPIUM-ALBUTEROL 3 ML NEB INHALATION SCH ×2 (07:15→15:45)
--- NOTE | 2016-07-20 07:31 | P.PN ---
Subjective Patient is seen in follow-up for end-stage renal disease. She is maintained on hemodialysis on a Thursday schedule via AV graft. It presented with chest pain and fluid overload. She underwent hemodialysis for 3 days straight with last treatment being July 18. Her dyspnea has improved. No vomiting or diarrhea. Appetite is fair. Sore throat is improved. Still has intermittent cough. Vital signs are stable. General: The patient appeared well nourished and normally developed. HEENT: Head exam is unremarkable. Neck is without jugular venous distension. LUNGS: Lungs are clear to auscultation and percussion. Breath sounds decreased. HEART: Rate and Rhythm are regular. First and second heart sounds normal. No murmurs, rubs or gallops. ABDOMEN: Abdominal exam reveals normal bowel sounds. Non-tender and non- distended. No evidence of peritonitis. EXTREMITITES: No clubbing, cyanosis, or edema. Objective - Vital Signs Vital signs: Vital Signs Temp 97.4 F L 07/20/16 04:00 Pulse 81 07/20/16 07:15 Resp 16 07/20/16 04:00 BP 137/65 07/20/16 04:00 Pulse Ox 90 L 07/20/16 07:15 Intake & Output 07/19/16 07/20/16 07/20/16 18:59 06:59 18:59 Intake Total 960 Output Total 400 Balance 560 Intake: Oral 960 Output: Urine 400 Other: # Voids 1 0 - Labs CBC & Chem 7: 07/19/16 06:15 07/19/16 06:15 Labs: Abnormal Lab Results - Last 24 Hours (Table) 07/19/16 07/19/16 07/19/16 Range/Units 06:15 11:29 16:17 POC Glucose (mg/dL) 176 H 142 H (75-99) mg/dL Iron 35 L (37-170) ug/dL TIBC 176 L (265-497) ug/dL % Saturation 19.9 L (20-50) % Ferritin 699 H (11-264) ng/mL 07/19/16 07/20/16 Range/Units 20:51 06:27 POC Glucose (mg/dL) 212 H 417 H (75-99) mg/dL Iron (37-170) ug/dL TIBC (265-497) ug/dL % Saturation (20-50) % Ferritin (11-264) ng/mL Assessment and Plan Plan: Assessment: #1. End-stage renal disease maintained on hemodialysis on a Thursday schedule via AV graft. #2. Non-ST elevated myocardial infarction. #3. Volume overload. Improved. #4. Chronic kidney disease mineral bone disease. #5. Anemia of chronic kidney disease. Iron deficiency present. #6. Insulin-dependent diabetes mellitus. Plan: Hemodialysis Thursday. Ferrlicit 125 mg IV today. Maintain PhosLo with meals. Cardiology following. Cardiac catheterization as an outpatient. Patient on antibiotics for sinusitis. Possible discharge today.
[2016-07-20] MEDS ORDERED: SODIUM FERRIC GLUCONAT-SUCROSE 125 MG in SODIUM CHLORIDE 0.9% 100 ML IVPB SCH (09:00)
[2016-07-20] MEDS: ASPIRIN 81 MG CHEW PO SCH (09:42)
[2016-07-20] MEDS: CLOPIDOGREL 75 MG TAB PO SCH (09:42)
[2016-07-20] MEDS: METOPROLOL TARTRATE 50 MG TAB PO SCH (09:42)
[2016-07-20] MEDS: FUROSEMIDE 80 MG TAB PO SCH (09:42)
[2016-07-20] MEDS: AZITHROMYCIN 250 MG TAB PO SCH (09:43)
[2016-07-20] MEDS: HEPARIN SODIUM,PORCINE 5,000 UNIT/ML 1 ML VIAL SQ SCH (09:43)
[2016-07-20 10:51] VITALS: PULSE 93
--- NOTE | 2016-07-20 11:38 | P.PN ---
Subjective Principal diagnosis: Acute coronary event This is a pleasant 56-year-old -Citizen Of [place] female patient who sees Dr. Calixto in the office as an outpatient with a known CAD and prior attempted angioplasty of the RCA, end stage renal disease on hemodialysis, diabetes, hypertension, and dyslipidemia, presented to the hospital with shortness of breath. The patient was diagnosed was congestive heart failure exacerbation. Also she was ruled in for acute non-STEMI. She has done well clinically over the last few days. She denies having any chest pain or discomfort. The shortness of breath has improved significantly. She continues to be in a sinus mechanism with reasonable blood pressure and heart rate. I had a long discussion with her yesterday as well as with her regarding the next step between invasive versus conservative approach. I am going to discharge the patient home to follow-up with Dr. Dr. Calixto and he will discuss with her the option between doing a stress test or heart catheterization. She is on maximize medical treatment consistent of dual antiplatelet therapy along with beta carmel and a statin. Objective - Vital Signs Vital signs: Vital Signs Temp 97.6 F 07/20/16 09:45 Pulse 93 07/20/16 09:45 Resp 16 07/20/16 09:45 BP 151/67 07/20/16 09:45 Pulse Ox 97 07/20/16 09:45 Intake & Output 07/19/16 07/20/16 07/20/16 18:59 06:59 18:59 Intake Total 960 240 Output Total 400 200 Balance 560 40 Weight 69.4 kg Intake: Oral 960 240 Output: Urine 400 200 Other: # Voids 1 0 1 - Constitutional General appearance: Present: no acute distress - Respiratory Respiratory: bilateral: CTA - Cardiovascular Rhythm: regular Heart sounds: normal: S1, S2 - Labs CBC & Chem 7: 07/19/16 06:15 07/19/16 06:15 Labs: Abnormal Lab Results - Last 24 Hours (Table) 07/19/16 07/19/16 07/20/16 Range/Units 16:17 20:51 06:27 POC Glucose (mg/dL) 142 H 212 H 417 H (75-99) mg/dL Assessment and Plan Plan: Assessment #1 acute respiratory failure #2 acute non-STEMI #3 known CAD #4 into stage renal disease on hemodialysis #5 multiple comorbid conditions Plan #1 continue the current medical treatment #2 from the cardiovascular standpoint of view, she can be discharged home
[2016-07-20 12:05] LABS: Glucose,Whole Blood 435 mg/dL (75-99)
--- NOTE | 2016-07-20 12:10 | P.DS ---
Providers Date of admission: 07/16/16 04:32 Attending physician: Tiana Cornell Consults: 07/16/16 05:54 Consult Physician Routine Consulting Provider: Claudia Vega Consult Reason/Comments: chf Do you want consulting provider notified?: Yes Consult Physician Urgent Consulting Provider: Stefania Zhu Consult Reason/Comments: chf Do you want consulting provider notified?: Yes [facility] care [facility] Course: 56-year-old female with history of CAD ESRD on hemodialysis Thursday comes in the hospital with acute onset difficulty breathing that woke her up at 2 AM on the day of admission. Patient was noted to be in significant fluid overload patient was noted to have a troponin elevation that peaked at 10. Patient was also noted to have a glucose level around 500. In the emergency room patient was given 3 L of crystalloids for treatment of DKA however patient did not have an anion gap Patient was started on insulin drip. During my evaluation patient was on 100% FiO2 discussed emergent dialysis again DC'd IV fluids changed to insulin drip to home regimen On 07/17/2016 Patient states that her breathing is improved currently on 5 L of supplemental oxygen denies headaches, blurry vision, nausea, vomiting, diarrhea. Patient is also on 10 mics and nitroglycerin at this time Denies any additional episodes of chest pain. 07/18/2016 Currently on 2 L supplement oxygen denies having any headaches blurry vision chest pain difficulty breathing nausea vomiting or diarrhea. 07/19/2016 Currently on room air denies having any headaches blurry vision, nausea, vomiting. Patient states to have some nasal discharge and frontal headache 07/20/2016 Is doing well denies having any significant complaints patient was able to family without much difficulty - Exam Physical exam Gen. appearance oriented 3 in no distress Neck is supple no JVD Lungs good air movement no rhonchi wheezing or crackles Palpable thrill at the left upper arm Heart S1-S2 heard regular rate and rhythm no murmurs appreciated Abdomen is soft nontender no organomegaly bowel sounds are intact Neurologically cranial nerves II-12 grossly intact no focal motor or sensory deficits noted Skin no abnormalities appreciated Assessment and Plan Plan: #1 acute hypoxic respiratory failure secondary to diastolic heart failure in a patient with ESRD on hemodialysis #2 acute non-Q-wave myocardial infarction in a patient with CAD. Patient is symptom-free will be discharged home to follow up with #3 ESRD on HD Thursday #4 anemia of ESRD with underlying iron deficiency has received iron infusions during the inpatient stay #5 history of hypertension #6 diabetes mellitus type 2 #7 isolated episodes of hyperglycemia likely from stress #8 accelerated hypertension #9 acute rhinosinusitis DC home on Medrol Dosepak and Zithromax Patient Condition at Discharge: Serious Plan - Discharge Summary New Discharge Prescriptions: Azithromycin [Zithromax] 250 mg PO DAILY #5 tab methylPREDNISolone Dose Pack [Medrol Dose Pack] 4 mg PO DIRECTED #21 package Discharge Medication List Furosemide [Lasix] 80 mg PO BID 09/17/13 [History] Nitroglycerin Sl Tabs [Nitrostat] 0.4 mg SUBLINGUAL Q5M PRN #25 tab 10/29/15 [Rx ] Albuterol Inhaler [Ventolin Hfa Inhaler] 1 puff INHALATION RT-BID PRN 02/12/16 [ History] Insulin Aspart [NovoLOG Flexpen] 12 unit SQ AC-BRKFST 02/12/16 [History] Clopidogrel [Plavix] 75 mg PO DAILY tab 02/16/16 [Rx] ALPRAZolam [Xanax] 0.25 mg PO HS #0 02/18/16 [Rx] Atorvastatin [Lipitor] 40 mg PO HS 07/16/16 [History] Calcium Acetate [PhosLo] 1,334 mg PO TID 07/16/16 [History] Insulin Aspart [NovoLOG Flexpen] 14 units SQ AC-LUNCH 07/16/16 [History] Insulin Aspart [NovoLOG Flexpen] 16 units SQ AC-SUPPER 07/16/16 [History] Insulin Glargine,Hum.rec.anlog [Lantus Solostar] 38 unit SQ HS 07/16/16 [History ] Metoprolol Tartrate [Lopressor] 50 mg PO BID 07/16/16 [History] amLODIPine [Norvasc] 2.5 mg PO DAILY 07/16/16 [History] Aspirin 81 mg PO DAILY chew 07/20/16 [Rx] Azithromycin [Zithromax] 250 mg PO DAILY #5 tab 07/20/16 [Rx] methylPREDNISolone Dose Pack [Medrol Dose Pack] 4 mg PO DIRECTED #21 package 07/20/16 [Rx] Follow up Appointment(s)/Referral(s): Ramiro Sethi MD [Primary Care Provider] - 1-2 days Chirag Calixto MD [STAFF PHYSICIAN] - 1 Week Discharge Disposition: HOME SELF-CARE
[2016-07-20] MEDS ORDERED: INSULIN REGULAR 100 UNIT/ML VIAL IV ONE (12:20)
[2016-07-20 14:44] VITALS: BP 142/64; TEMP 97.3
[2016-07-20 15:10] LABS: Glucose,Whole Blood 326 mg/dL (75-99)
== END 2016-07-20 15:44 | disposition home or self-care (01) | DRG 280 ==
LOC: EC 03:15 → 6SEL 04:32
PROVIDERS: ADMIT Hospitalist; ATTEND Hospitalist
PROC: 5A1D60Z (ICD-10-PCS; principal; 2016-07-16)
DX: I13.2 Hypertensive heart and chronic kidney disease with heart failure and with stage 5 chronic kidney disease, or end stage renal disease (principal); J96.01 Acute respiratory failure with hypoxia; I21.4 Non-ST elevation (NSTEMI) myocardial infarction; I50.43 Acute on chronic combined systolic (congestive) and diastolic (congestive) heart failure; N18.6 End stage renal disease; E13.10 Other specified diabetes mellitus with ketoacidosis without coma; N25.81 Secondary hyperparathyroidism of renal origin; D63.1 Anemia in chronic kidney disease; E11.22 Type 2 diabetes mellitus with diabetic chronic kidney disease; Z99.2 Dependence on renal dialysis; E61.1 Iron deficiency; J01.90 Acute sinusitis, unspecified; E78.5 Hyperlipidemia, unspecified; E87.6 Hypokalemia; E11.319 Type 2 diabetes mellitus with unspecified diabetic retinopathy without macular edema; I25.10 Atherosclerotic heart disease of native coronary artery without angina pectoris; K21.9 Gastro-esophageal reflux disease without esophagitis; M06.9 Rheumatoid arthritis, unspecified; Z79.4 Long term (current) use of insulin; Z79.899 Other long term (current) drug therapy; Z82.49 Family history of ischemic heart disease and other diseases of the circulatory system; Z83.3 Family history of diabetes mellitus; Z86.73 Personal history of transient ischemic attack (TIA), and cerebral infarction without residual deficits; Z87.891 Personal history of nicotine dependence; Z95.5 Presence of coronary angioplasty implant and graft; Z91.041 Radiographic dye allergy status; Z88.0 Allergy status to penicillin; Z91.013 Allergy to seafood
CPT/HCPCS: 36415; 71010; 80048; 80051; 80053; 82550; 82553; 82565; 82728; 82947; 83036; 83540; 83550; 83735; 83880; 84100; 84484; 84520; 85025; 85027; 85379; 85610; 85730; 87040; 87340; 90935; 93005; 93306; 94640; 94660; 94760; 96365; 96366; 96367; 96375; 96376; 99291

== ENCOUNTER 2016-08-01 04:24 | Inpatient (IN) | payer MEDICARE, BC ==
--- NOTE | 2016-08-01 05:08 | ED ---
SOB HPI - General Chief Complaint: Shortness of Breath Stated Complaint: Fluid Overload Time Seen by Provider: 08/01/16 04:43 Source: patient Mode of arrival: ambulatory Limitations: no limitations - History of Present Illness Initial Comments: This patient is a 56-year-old woman who presents to be evaluated for dyspnea. She states that it started coming on earlier this morning and has become progressively worse. The patient does have history of end-stage renal disease on dialysis as well as congestive heart failure. The patient's last normal dialysis session was Thursday. She is scheduled to have dialysis today but was to come in the hospital first to have a procedure done. The shortness of breath does get worse when she is lying flat. She denies chest pain. Fever or chills, . There is a cough productive of some white sputum. MD Complaint: shortness of breath, cough Onset/Timin -: hour(s) Consistency: constant Improves With: nothing Worsens With: lying flat Known History Of: congestive heart failure, other (Dialysis) Associated Symptoms: diaphoresis Treatments Prior to Arrival: oxygen - Related Data Home Medications Medication Instructions Recorded Confirmed Furosemide [Lasix] 80 mg PO BID 09/17/13 07/29/16 Albuterol Inhaler [Ventolin Hfa 1 puff INHALATION BID PRN 02/12/16 07/29/16 Inhaler] Insulin Aspart [NovoLOG Flexpen] 12 unit SQ AC-BRKFST 02/12/16 07/29/16 Atorvastatin [Lipitor] 40 mg PO HS 07/16/16 07/29/16 Insulin Aspart [NovoLOG Flexpen] 14 units SQ AC-LUNCH 07/16/16 07/29/16 Insulin Aspart [NovoLOG Flexpen] 16 units SQ AC-SUPPER 07/16/16 07/29/16 Insulin Glargine,Hum.rec.anlog 38 unit SQ HS 07/16/16 07/29/16 [Lantus Solostar] Metoprolol Tartrate [Lopressor] 50 mg PO DAILY 07/16/16 07/29/16 ALPRAZolam [Xanax] 0.25 mg PO HS PRN 07/29/16 07/29/16 Sevelamer [Renvela] 2,400 mg PO AC-TID 07/29/16 07/29/16 amLODIPine [Norvasc] 5 mg PO DAILY 07/29/16 07/29/16 Previous Rx's Medication Instructions Recorded Nitroglycerin Sl Tabs [Nitrostat] 0.4 mg SUBLINGUAL Q5M PRN #25 tab 10/29/15 Clopidogrel [Plavix] 75 mg PO DAILY tab 02/16/16 Aspirin 81 mg PO DAILY chew 07/20/16 Allergies Allergy/AdvReac Type Severity Reaction Status Date / Time iodine Allergy Anaphylaxis Verified 07/29/16 15:38 Penicillins Allergy Rash/Hives Verified 07/29/16 15:38 shellfish derived Allergy Anaphylaxis Verified 07/29/16 15:38 clonidine AdvReac Unknown Verified 07/29/16 15:38 Review of Systems ROS Statement: Those systems with pertinent positive or pertinent negative responses have been documented in the HPI. ROS Other: All systems not noted in ROS Statement are negative. Constitutional: Denies: fever, chills Respiratory: Reports: cough, dyspnea. Denies: hemoptysis Cardiovascular: Denies: chest pain, palpitations, edema, syncope Gastrointestinal: Denies: abdominal pain, vomiting, diarrhea, melena, hematochezia Musculoskeletal: Denies: back pain Neurological: Denies: headache Psychiatric: Reports: anxiety Past Medical History Past Medical History: CVA/TIA, Diabetes Mellitus, GERD/Reflux, GI Bleed, Hyperlipidemia, Osteoarthritis (OA), Pneumonia, Renal Disease, Vascular Disorder Additional Past Medical History / Comment(s): Chronic renal failure stage IV with hemodialysis MWF, CVA 2007 with some peripheral vision problems R eye, lower GI bleed, PAD, DJD, diverticulosis, peripheral neuropathy bilateral feet, pancreatitis, See Dr Calixto H &P, History of Any Multi-Drug Resistant Organisms: None Reported Past Surgical History: Cholecystectomy, Heart Catheterization With Stent, Hysterectomy Additional Past Surgical History / Comment(s): L upper arm for dialysis, 3 Cardiac stents, on stent rt leg, colonoscopies , bilateral cataract removal, laser sx bilateral eyes for retinopathy, D&C, left axillary I&D Past Anesthesia/Blood Transfusion Reactions: Motion Sickness, Postoperative Nausea & Vomiting (PONV) Additional Past Anesthesia/Blood Transfusion Reaction / Comment(s): Pt has received blood in the past without reaction. Date of Last Stent Placement:: 09/22/13 Past Psychological History: No Psychological Hx Reported Additional Psychological History / Comment(s): .. Smoking Status: Former smoker Past Alcohol Use History: Occasional Additional Past Alcohol Use History / Comment(s): Pt smoked from 1983 to 2013. 1 PPD Past Drug Use History: None Reported - Past Family History Mother Family Medical History: No Reported History Additional Family Medical History / Comment(s): Mother is 75 yrs old. Father Family Medical History: Diabetes Mellitus Additional Family Medical History / Comment(s): Father at the age of 42 yrs -pt did not discuss cause of . General Exam Limitations: no limitations General appearance: alert, in distress Head exam: Present: atraumatic, normocephalic Eye exam: Present: normal appearance Respiratory exam: Present: respiratory distress, rales. Absent: wheezes, rhonchi, stridor, decreased breath sounds, prolonged expiratory Cardiovascular Exam: Present: normal rhythm, tachycardia, systolic murmur, gallop. Absent: diastolic murmur, rubs GI/Abdominal exam: Present: soft. Absent: tenderness, guarding, rebound, mass Extremities exam: Present: normal inspection, normal capillary refill. Absent: pedal edema, calf tenderness Back exam: Present: normal inspection. Absent: CVA tenderness (R), CVA tenderness (L) Neurological exam: Present: alert Psychiatric exam: Present: anxious Skin exam: Present: warm, intact, normal color, diaphoretic. Absent: rash, cyanosis, petechiae, pallor, mottled Course Vital Signs 08/01/16 08/01/16 08/01/16 04:31 05:04 05:11 Temperature 97.4 F L Pulse Rate 107 H 112 H 107 H Respiratory 36 H 36 H 36 H Rate Blood Pressure 197/84 211/101 182/85 O2 Sat by Pulse 99 100 100 Oximetry 08/01/16 08/01/16 08/01/16 05:16 05:28 05:53 Temperature Pulse Rate 102 H 108 H 100 Respiratory 30 H 30 H 24 Rate Blood Pressure 181/84 184/93 171/79 O2 Sat by Pulse 100 96 100 Oximetry 08/01/16 08/01/16 06:05 06:26 Temperature Pulse Rate 94 93 Respiratory 25 H 28 H Rate Blood Pressure 171/78 176/91 O2 Sat by Pulse 100 100 Oximetry Medical Decision Making - EKG Data -: EKG Interpreted by [facility] EKG shows normal: sinus rhythm, axis (Normal), intervals (Normal) Rate: tachycardia (Rate is approximately 108 bpm) Disposition Clinical Impression: ESRD (end stage renal disease) on dialysis, Diabetes mellitus, Congestive heart failure (CHF) Disposition: ADMITTED IP TO THIS HOSP Condition: Poor Referrals: Ramiro Sethi MD [Primary Care Provider] - 1-2 days
[2016-08-01] MEDS ORDERED: NITROGLYCERIN SL TABS 0.4 MG TAB SUBLINGUAL STA (05:50)
--- NOTE | 2016-08-01 06:06 | XR ---
EXAM: XR Chest, 1 View CLINICAL HISTORY: Reason: dyspnea TECHNIQUE: Frontal view of the chest. COMPARISON: No relevant prior studies available. FINDINGS: Artifacts: There is artifact from oxygen tubing overlying the chest. Lungs: Prominent indistinct pulmonary vascular markings throughout. No defined infiltrate. Pleural space: No large pleural effusion. No pneumothorax. Heart: Heart size within normal limits. Mediastinum: Mediastinal contours are within normal limits with aortic calcification present. Bones/joints: Degenerative changes without acute displaced fracture. IMPRESSION: Mildly prominent pulmonary vascular markings which may reflect the presence of early or mild CHF in the acute setting. Differential could also include infection or exposure for example. Correlate clinically. This exam could serve as baseline for follow-up to assess for clearing.
[2016-08-01] MEDS ORDERED: NITROGLYCERIN-D5W PMX 50 MG in DEXTROSE/WATER 1 250ML.BAG IV ONE (06:16)
[2016-08-01] MEDS ORDERED: MORPHINE SULFATE 4 MG/ML SYRINGE IV STA (06:16)
[2016-08-01 06:31] LABS: Calcium 9.1 mg/dL (8.4-10.2); Potassium 5.8 mmol/L (3.5-5.1); Total Bilirubin 0.5 mg/dL (0.2-1.3); Total Protein 6.4 g/dL (6.3-8.2)
[2016-08-01] MEDS ORDERED: INSULIN REGULAR 100 UNIT/ML VIAL SQ STA (06:37)
[2016-08-01 06:41] LABS: Partial Thromboplastin Time 22.8 sec (22.0-30.0); Prothrombin Time 10.3 sec (9.0-12.0)
[2016-08-01 07:02] LABS: Creatine Kinase MB 2.1 ng/mL (0.0-2.4)
[2016-08-01 07:05] LABS: Troponin I 0.08 ng/mL (0.000-0.034)
[2016-08-01 07:16] LABS: Anisocytosis Slight; Basophils % (A) 0 %; CH 29.3; CHCM 29.5; Eosinophils % (A) 0 %; HCT 34.2 % (34.0-46.0); HDW 3.02; HGB 10.4 gm/dL (11.4-16.0); Hypochromasia Marked; Luc # (Auto) 0.05; Luc % (Auto) 1; Lymphocytes # (A) 0.2 k/uL (1.0-4.8); Lymphocytes % (A) 4 %; MCH 30.2 pg (25.0-35.0); MCHC 30.3 g/dL (31.0-37.0); MCV 99.6 fL (80.0-100.0); Macrocytosis Moderate; Mean Platelet Volume 7.4; Monocytes # (A) 0.2 k/uL (0-1.0); Monocytes % (A) 2 %; Neutrophils # (A) 6.3 k/uL (1.3-7.7); Neutrophils % (A) 93 %; RBC 3.43 m/uL (3.80-5.40); RDW 19.9 % (11.5-15.5); WBC 6.8 k/uL (3.8-10.6); WBC (Perox) 7.12
--- NOTE | 2016-08-01 08:03 | P.NPCON ---
History of Present Illness - Reason for Consult end stage renal disease - History of Present Illness Reason for consultation: End-stage renal disease History of present illness: Patient is a 56-year-old -[place] female seen in renal consultation for end-stage renal disease. She is maintained on hemodialysis on a Thursday schedule via left upper extremity AV graft. Patient was recently admitted earlier this week with volume overload and chest pain. She was diagnosed with an acute non-ST elevated myocardial infarction. She has history of coronary artery disease as well. No interventions were done and she was scheduled to have a cardiac catheterization today. However earlier this morning she developed dyspnea and wheezing and presented to the hospital. She is currently on a BiPAP. Her systolic blood pressure was over 200 and she is currently on a nitroglycerin drip. She did not take her oral medications this morning. Her dyspnea is improved. Denies any vomiting or diarrhea. No fever or chills. 2-D echo from earlier this month revealed ejection fraction of 55-60 % with moderate mitral regurgitation. Her blood pressures are improved and most recent blood pressure is 165/83. Vital signs are stable. General: The patient appeared well nourished and normally developed. HEENT: Head exam is unremarkable. Neck is without jugular venous distension. LUNGS: Lungs are clear to auscultation and percussion. Breath sounds decreased. HEART: Rate and Rhythm are regular. First and second heart sounds normal. No murmurs, rubs or gallops. ABDOMEN: Abdominal exam reveals normal bowel sounds. Non-tender and non- distended. No evidence of peritonitis. EXTREMITITES: No clubbing, cyanosis, or edema. Past Medical History Past Medical History: CVA/TIA, Diabetes Mellitus, GERD/Reflux, GI Bleed, Hyperlipidemia, Osteoarthritis (OA), Pneumonia, Renal Disease, Vascular Disorder Additional Past Medical History / Comment(s): Chronic renal failure stage IV with hemodialysis MWF, CVA 2007 with some peripheral vision problems R eye, lower GI bleed, PAD, DJD, diverticulosis, peripheral neuropathy bilateral feet, pancreatitis, See Dr Calixto H &P, History of Any Multi-Drug Resistant Organisms: None Reported Past Surgical History: Cholecystectomy, Heart Catheterization With Stent, Hysterectomy Additional Past Surgical History / Comment(s): L upper arm for dialysis, 3 Cardiac stents, on stent rt leg, colonoscopies , bilateral cataract removal, laser sx bilateral eyes for retinopathy, D&C, left axillary I&D Past Anesthesia/Blood Transfusion Reactions: Motion Sickness, Postoperative Nausea & Vomiting (PONV) Additional Past Anesthesia/Blood Transfusion Reaction / Comment(s): Pt has received blood in the past without reaction. Date of Last Stent Placement:: 09/22/13 Past Psychological History: No Psychological Hx Reported Additional Psychological History / Comment(s): .. Smoking Status: Former smoker Past Alcohol Use History: Occasional Additional Past Alcohol Use History / Comment(s): Pt smoked from 1983 to 2012. 1 PPD Past Drug Use History: None Reported - Past Family History Mother Family Medical History: No Reported History Additional Family Medical History / Comment(s): Mother is 75 yrs old. Father Family Medical History: Diabetes Mellitus Additional Family Medical History / Comment(s): Father at the age of 42 yrs -pt did not discuss cause of . Medications and Allergies Home Medications Medication Instructions Recorded Confirmed Type Furosemide [Lasix] 80 mg PO BID 09/17/13 08/01/16 History Albuterol Inhaler [Ventolin Hfa 1 puff INHALATION RT-BID PRN 02/12/16 08/01/16 History Inhaler] Insulin Aspart [NovoLOG Flexpen] 12 unit SQ AC-BRKFST 02/12/16 08/01/16 History Atorvastatin [Lipitor] 40 mg PO HS 07/16/16 08/01/16 History Insulin Aspart [NovoLOG Flexpen] 14 units SQ AC-LUNCH 07/16/16 08/01/16 History Insulin Aspart [NovoLOG Flexpen] 16 units SQ AC-SUPPER 07/16/16 08/01/16 History Insulin Glargine,Hum.rec.anlog 38 unit SQ HS 07/16/16 08/01/16 History [Lantus Solostar] Metoprolol Tartrate [Lopressor] 50 mg PO BID 07/16/16 08/01/16 History ALPRAZolam [Xanax] 0.25 mg PO HS PRN 07/29/16 08/01/16 History Calcium Acetate [Phoslo] 1,334 mg PO DAILY 08/01/16 08/01/16 History Calcium Acetate [Phoslo] 667 mg PO BID 08/01/16 08/01/16 History amLODIPine [Norvasc] 2.5 mg PO DAILY 08/01/16 08/01/16 History Allergies Allergy/AdvReac Type Severity Reaction Status Date / Time iodine Allergy Anaphylaxis Verified 08/01/16 07:15 Penicillins Allergy Rash/Hives Verified 08/01/16 07:15 shellfish derived Allergy Anaphylaxis Verified 08/01/16 07:15 clonidine AdvReac Unknown Verified 08/01/16 07:15 Physical Exam Vitals: Vital Signs Temp Pulse Resp BP Pulse Ox 08/01/16 07:26 90 18 165/83 97 08/01/16 07:07 90 30 H 165/83 100 08/01/16 06:49 65 23 171/84 100 08/01/16 06:26 93 28 H 176/91 100 08/01/16 06:05 94 25 H 171/78 100 08/01/16 05:53 100 24 171/79 100 08/01/16 05:28 108 H 30 H 184/93 96 08/01/16 05:16 102 H 30 H 181/84 100 08/01/16 05:11 107 H 36 H 182/85 100 08/01/16 05:04 112 H 36 H 211/101 100 08/01/16 04:31 97.4 F L 107 H 36 H 197/84 99 Intake and Output 07/31/16 08/01/16 08/01/16 22:59 06:59 14:59 Intake Total 0.2 Balance 0.2 Intake: Intake, IV Titration 0.2 Amount Nitroglycerin-D5w Pmx 50 0.2 mg In Dextrose/Water 1 250ml.bag @ 20 MCG/MIN 6 mls/hr IV .Q24H ONE Rx#: [id number] Other: Weight 68.492 kg Results - Lab Results Most recent lab results Calcium 9.1 mg/dL (8.4-10.2) 08/01/16 05:32 08/01/16 05:32 08/01/16 05:32 Assessment and Plan Plan: Assessment: #1. End-stage renal disease maintained on hemodialysis on a Thursday schedule via left upper extremity AV graft. #2. Volume overload. #3. Hypertension with chronic kidney disease. Uncontrolled. #4. Anemia of chronic kidney disease. Hemoglobin at goal. #5. Chronic kidney disease mineral bone disease. #6. Insulin-dependent diabetes mellitus. Plan: Hemodialysis today with goal 3-4 L ultrafiltration. Depending on her volume status, she may need another dialysis treatment tomorrow. Check phosphorus level. Home medications to be resumed including her antihypertensives and phosphate binders. Cardiology recommendations pending. Thank you for the consultation. I will continue to follow the patient with you during her hospital stay.
[2016-08-01 11:06] LABS: Glucose,Whole Blood 386 mg/dL (75-99)
--- NOTE | 2016-08-01 11:23 | P.CRDCN ---
History of Present Illness Consult date: 08/01/16 History of present illness: This is a 56-year-old -[place] female with history of coronary artery disease and previous stent placement the right coronary artery, diabetes, hypertension and dyslipidemia has been admitted to this hospital on several occasions recently with increasing shortness of breath and pulmonary edema. Patient has had volume overload. She was scheduled to have a cardiac catheterization today but woke up around 2:00 with shortness of breath and coughing whitish sputum. Patient came to the hospital and was found to be in congestive heart failure. Patient is getting dialysis today and probably will get dialysis tomorrow. Her troponin is mildly elevated. Her BNP is elevated. Cardiac catheterization was canceled for now and patient will be reevaluated when patient is more stable. Patient is otherwise hemodynamically seemed to be stable at this time. Review of Systems As per the chart Past Medical History Past Medical History: CVA/TIA, Diabetes Mellitus, GERD/Reflux, GI Bleed, Hyperlipidemia, Osteoarthritis (OA), Pneumonia, Renal Disease, Vascular Disorder Additional Past Medical History / Comment(s): Chronic renal failure stage IV with hemodialysis MWF, CVA 2007 with some peripheral vision problems R eye, lower GI bleed, PAD, DJD, diverticulosis, peripheral neuropathy bilateral feet, pancreatitis, See Dr Calixto H &P, History of Any Multi-Drug Resistant Organisms: None Reported Past Surgical History: Cholecystectomy, Heart Catheterization With Stent, Hysterectomy Additional Past Surgical History / Comment(s): L upper arm for dialysis, 3 Cardiac stents, on stent rt leg, colonoscopies , bilateral cataract removal, laser sx bilateral eyes for retinopathy, D&C, left axillary I&D Past Anesthesia/Blood Transfusion Reactions: Motion Sickness, Postoperative Nausea & Vomiting (PONV) Additional Past Anesthesia/Blood Transfusion Reaction / Comment(s): Pt has received blood in the past without reaction. Date of Last Stent Placement:: 09/22/13 Past Psychological History: No Psychological Hx Reported Additional Psychological History / Comment(s): .. Smoking Status: Former smoker Past Alcohol Use History: Occasional Additional Past Alcohol Use History / Comment(s): Pt smoked from 1983 to 2012. 1 PPD Past Drug Use History: None Reported - Past Family History Mother Family Medical History: No Reported History Additional Family Medical History / Comment(s): Mother is 75 yrs old. Father Family Medical History: Diabetes Mellitus Additional Family Medical History / Comment(s): Father at the age of 42 yrs -pt did not discuss cause of . Medications and Allergies Home Medications Medication Instructions Recorded Confirmed Type Furosemide [Lasix] 80 mg PO BID 09/17/13 08/01/16 History Albuterol Inhaler [Ventolin Hfa 1 puff INHALATION RT-BID PRN 02/12/16 08/01/16 History Inhaler] Insulin Aspart [NovoLOG Flexpen] 12 unit SQ AC-BRKFST 02/12/16 08/01/16 History Atorvastatin [Lipitor] 40 mg PO HS 07/16/16 08/01/16 History Insulin Aspart [NovoLOG Flexpen] 14 units SQ AC-LUNCH 07/16/16 08/01/16 History Insulin Aspart [NovoLOG Flexpen] 16 units SQ AC-SUPPER 07/16/16 08/01/16 History Insulin Glargine,Hum.rec.anlog 38 unit SQ HS 07/16/16 08/01/16 History [Lantus Solostar] Metoprolol Tartrate [Lopressor] 50 mg PO BID 07/16/16 08/01/16 History ALPRAZolam [Xanax] 0.25 mg PO HS PRN 07/29/16 08/01/16 History Calcium Acetate [Phoslo] 1,334 mg PO DAILY 08/01/16 08/01/16 History Calcium Acetate [Phoslo] 667 mg PO BID 08/01/16 08/01/16 History amLODIPine [Norvasc] 2.5 mg PO DAILY 08/01/16 08/01/16 History Allergies Allergy/AdvReac Type Severity Reaction Status Date / Time iodine Allergy Anaphylaxis Verified 08/01/16 07:15 Penicillins Allergy Rash/Hives Verified 08/01/16 07:15 shellfish derived Allergy Anaphylaxis Verified 08/01/16 07:15 clonidine AdvReac Unknown Verified 08/01/16 07:15 Physical Exam Vitals: Vital Signs Temp Pulse Resp BP Pulse Ox 08/01/16 10:05 18 08/01/16 07:26 90 18 165/83 97 08/01/16 07:07 90 30 H 165/83 100 08/01/16 06:49 65 23 171/84 100 08/01/16 06:26 93 28 H 176/91 100 08/01/16 06:05 94 25 H 171/78 100 08/01/16 05:53 100 24 171/79 100 08/01/16 05:28 108 H 30 H 184/93 96 08/01/16 05:16 102 H 30 H 181/84 100 08/01/16 05:11 107 H 36 H 182/85 100 08/01/16 05:04 112 H 36 H 211/101 100 08/01/16 04:31 97.4 F L 107 H 36 H 197/84 99 Intake and Output 07/31/16 08/01/16 08/01/16 22:59 06:59 14:59 Intake Total 0.2 Balance 0.2 Intake: Intake, IV Titration 0.2 Amount Nitroglycerin-D5w Pmx 50 0.2 mg In Dextrose/Water 1 250ml.bag @ 20 MCG/MIN 6 mls/hr IV .Q24H ONE Rx#: [id number] Other: Weight 68.492 kg GENERAL EXAM: Patient is alert and oriented and doesn't appear to be in any acute distress HEENT: Normocephalic. Normal reaction of pupils, equal size, normal range of extraocular motion. No erythema or exudates in the throat. NECK: No masses, no nuchal rigidity. CHEST: No chest wall deformity. LUNGS: Diffuse rales both sides HEART: S1 and S2 normal with no audible mumurs or gallops. Regular rhythm, femorals equal on both sides.. ABDOMEN: No hepatosplenomegaly, normal bowel sounds, no guarding or rigidity. SKIN: No rashes CENTRAL NERVOUS SYSTEM: No focal deficits. EXTREMITIES: No cyanosis, clubbing or edema. Results 08/01/16 05:32 08/01/16 05:32 Cardiac Enzymes 08/01/16 08/01/16 Range/Units 05:32 05:32 AST 124 H (14-36) U/L CK-MB (CK-2) 2.1 (0.0-2.4) ng/mL Troponin I 0.080 H* (0.000-0.034) ng/mL Coagulation 08/01/16 Range/Units 05:32 PT 10.3 (9.0-12.0) sec APTT 22.8 (22.0-30.0) sec CBC 08/01/16 Range/Units 05:32 WBC 6.8 (3.8-10.6) k/uL RBC 3.43 L (3.80-5.40) m/uL Hgb 10.4 L (11.4-16.0) gm/dL Hct 34.2 (34.0-46.0) % Plt Count 311 (150-450) k/uL Comprehensive Metabolic Panel 08/01/16 Range/Units 05:32 Sodium 135 L (137-145) mmol/L Potassium 5.8 H (3.5-5.1) mmol/L Chloride 94 L (98-107) mmol/L Carbon Dioxide 23 (22-30) mmol/L BUN 51 H (7-17) mg/dL Creatinine 8.50 H* (0.52-1.04) mg/dL Glucose 521 H* (74-99) mg/dL Calcium 9.1 (8.4-10.2) mg/dL AST 124 H (14-36) U/L ALT 82 H (9-52) U/L Alkaline Phosphatase 121 (38-126) U/L Total Protein 6.4 (6.3-8.2) g/dL Albumin 3.8 (3.5-5.0) g/dL Current Medications Generic Name Dose Route Start Last Admin Trade Name Freq PRN Reason Stop Dose Admin Nitroglycerin/Dextrose 50 mg/ 250 mls @ 6 mls/hr 08/01/16 06:16 08/01/16 06: 22 IV Solution IV 08/02/16 06:15 50 mcg/min .Q24H ONE 15 mls/hr Protocol Titration 20 MCG/MIN Sodium Chloride 10 ml 08/01/16 09:00 Saline Flush IV BID NYA Intake and Output 07/31/16 08/01/16 08/01/16 22:59 06:59 14:59 Intake Total 0.2 Balance 0.2 Intake: Intake, IV Titration 0.2 Amount Nitroglycerin-D5w Pmx 50 0.2 mg In Dextrose/Water 1 250ml.bag @ 20 MCG/MIN 6 mls/hr IV .Q24H ONE Rx#: [id number] Other: Weight 68.492 kg 08/01/16 05:32 08/01/16 05:32 EKG Interpretations (text) Sinus rhythm and sinus tachycardia with ST depression in the lateral leads Assessment and Plan (1) Congestive heart failure (CHF) Status: Acute (2) Diabetes mellitus Status: Acute (3) ESRD (end stage renal disease) on dialysis Status: Acute (4) H/O: CVA (cerebrovascular accident) Status: Acute (5) Hyperlipemia Status: Acute (6) S/P right coronary artery (RCA) stent placement Status: Acute Plan: Continue with the dialysis. Continue the rest of the medication. Follow Cardec enzymes studies. When patient is stable from CHF point and volume overload, may consider cardiac catheterization.
[2016-08-01 13:47] LABS: Glucose,Whole Blood 180 mg/dL (75-99)
[2016-08-01] MEDS ORDERED: ALBUTEROL NEBULIZED 2.5 MG/3 ML INHALATION PRN (14:39)
[2016-08-01] MEDS ORDERED: ONDANSETRON 4 MG/2 ML VIAL IVP STA (14:48)
--- NOTE | 2016-08-01 14:48 | P.HPIM ---
History of Present Illness H&P Date: 08/01/16 56-year-old female with history of CAD ESRD and hemodialysis hypertension dyslipidemia comes in to the hospital with complaints of sudden onset difficulty breathing. Patient has had a similar episode 2 weeks prior where she woke up at 2 AM in the morning with sudden onset difficulty breathing. Patient does state to have significant snoring however has never been diagnosed with sleep apnea. At that time patient was noted to have some EKG changes with a troponin elevation however patient wanted to delay her heart a catheterization which was supposed to be today. Patient had a similar episode where she woke up again the middle of the night with complaints of difficulty breathing was diaphoretic apparently and came in to the hospital was noted to have a systolic blood pressure around [id number] Patient was noted to be in heart failure with physical exam findings Patient was started on nitroglycerin drip. During my evaluation patient was undergoing hemodialysis with the left upper arm fistula Patient has not missed any of her dialysis sessions. Patient states her blood pressure has been erratic in the recent times. EKG is suboptimal that was done in the emergency room at the time of my evaluation states that she denies having any headaches blurry vision nausea vomiting abdominal pain urinary urgency frequency or lower extremity edema. Review of Systems All systems: negative (Noted in HPI) Past Medical History Past Medical History: CVA/TIA, Diabetes Mellitus, GERD/Reflux, GI Bleed, Hyperlipidemia, Osteoarthritis (OA), Pneumonia, Renal Disease, Vascular Disorder Additional Past Medical History / Comment(s): Chronic renal failure stage IV with hemodialysis MWF, CVA 2007 with some peripheral vision problems R eye, lower GI bleed, PAD, DJD, diverticulosis, peripheral neuropathy bilateral feet, pancreatitis, See Dr Calixto H &P, History of Any Multi-Drug Resistant Organisms: None Reported Past Surgical History: Cholecystectomy, Heart Catheterization With Stent, Hysterectomy Additional Past Surgical History / Comment(s): L upper arm for dialysis, 3 Cardiac stents, on stent rt leg, colonoscopies , bilateral cataract removal, laser sx bilateral eyes for retinopathy, D&C, left axillary I&D Past Anesthesia/Blood Transfusion Reactions: Motion Sickness, Postoperative Nausea & Vomiting (PONV) Additional Past Anesthesia/Blood Transfusion Reaction / Comment(s): Pt has received blood in the past without reaction. Date of Last Stent Placement:: 09/22/13 Past Psychological History: No Psychological Hx Reported Additional Psychological History / Comment(s): .. Smoking Status: Former smoker Past Alcohol Use History: Occasional Additional Past Alcohol Use History / Comment(s): Pt smoked from 1983 to 2012. 1 PPD Past Drug Use History: None Reported - Past Family History Mother Family Medical History: No Reported History Additional Family Medical History / Comment(s): Mother is 75 yrs old. Father Family Medical History: Diabetes Mellitus Additional Family Medical History / Comment(s): Father at the age of 42 yrs -pt did not discuss cause of . Medications and Allergies Home Medications Medication Instructions Recorded Confirmed Type Furosemide [Lasix] 80 mg PO BID 09/17/13 08/01/16 History Albuterol Inhaler [Ventolin Hfa 1 puff INHALATION RT-BID PRN 02/12/16 08/01/16 History Inhaler] Insulin Aspart [NovoLOG Flexpen] 12 unit SQ AC-BRKFST 02/12/16 08/01/16 History Atorvastatin [Lipitor] 40 mg PO HS 07/16/16 08/01/16 History Insulin Aspart [NovoLOG Flexpen] 14 units SQ AC-LUNCH 07/16/16 08/01/16 History Insulin Aspart [NovoLOG Flexpen] 16 units SQ AC-SUPPER 07/16/16 08/01/16 History Insulin Glargine,Hum.rec.anlog 38 unit SQ HS 07/16/16 08/01/16 History [Lantus Solostar] Metoprolol Tartrate [Lopressor] 50 mg PO BID 07/16/16 08/01/16 History ALPRAZolam [Xanax] 0.25 mg PO HS PRN 07/29/16 08/01/16 History Calcium Acetate [Phoslo] 1,334 mg PO DAILY 08/01/16 08/01/16 History Calcium Acetate [Phoslo] 667 mg PO BID 08/01/16 08/01/16 History amLODIPine [Norvasc] 2.5 mg PO DAILY 08/01/16 08/01/16 History Allergies Allergy/AdvReac Type Severity Reaction Status Date / Time iodine Allergy Anaphylaxis Verified 08/01/16 07:15 Penicillins Allergy Rash/Hives Verified 08/01/16 07:15 shellfish derived Allergy Anaphylaxis Verified 08/01/16 07:15 clonidine AdvReac Unknown Verified 08/01/16 07:15 Physical Exam Vitals: Vital Signs Temp Pulse Resp BP Pulse Ox 08/01/16 13:24 85 18 144/77 97 08/01/16 12:52 84 18 144/72 98 08/01/16 10:05 18 08/01/16 07:26 90 18 165/83 97 08/01/16 07:07 90 30 H 165/83 100 08/01/16 06:49 65 23 171/84 100 08/01/16 06:26 93 28 H 176/91 100 08/01/16 06:05 94 25 H 171/78 100 08/01/16 05:53 100 24 171/79 100 08/01/16 05:28 108 H 30 H 184/93 96 08/01/16 05:16 102 H 30 H 181/84 100 08/01/16 05:11 107 H 36 H 182/85 100 08/01/16 05:04 112 H 36 H 211/101 100 08/01/16 04:31 97.4 F L 107 H 36 H 197/84 99 Intake and Output 07/31/16 08/01/16 08/01/16 22:59 06:59 14:59 Intake Total 0.2 Balance 0.2 Intake: Intake, IV Titration 0.2 Amount Nitroglycerin-D5w Pmx 50 0.2 mg In Dextrose/Water 1 250ml.bag @ 20 MCG/MIN 6 mls/hr IV .Q24H ONE Rx#: [id number] Other: Weight 68.492 kg Appearance alert oriented 3 does not appear to be in distress Lungs crackles at the bases air movement is appreciated no rhonchi or wheezing Heart slight murmurs noted S1-S2 heard regular rate and rhythm Abdomen soft nontender organomegaly Neuro no focal motor or sensory deficits noted Lower extremities no edema noted Results CBC & Chem 7: 08/01/16 05:32 08/01/16 05:32 Labs: Abnormal Lab Results - Last 24 Hours (Table) 08/01/16 08/01/16 08/01/16 Range/Units 05:32 05:32 05:32 RBC 3.43 L (3.80-5.40) m/uL Hgb 10.4 L (11.4-16.0) gm/dL MCHC 30.3 L (31.0-37.0) g/dL RDW 19.9 H (11.5-15.5) % Lymphocytes # 0.2 L (1.0-4.8) k/uL D-Dimer 1.23 H (<0.60) mg/L FEU Sodium 135 L (137-145) mmol/L Potassium 5.8 H (3.5-5.1) mmol/L Chloride 94 L (98-107) mmol/L BUN 51 H (7-17) mg/dL Creatinine 8.50 H* (0.52-1.04) mg/dL Glucose 521 H* (74-99) mg/dL POC Glucose (mg/dL) (75-99) mg/dL Phosphorus (2.5-4.5) mg/dL AST 124 H (14-36) U/L ALT 82 H (9-52) U/L Troponin I (0.000-0.034) ng/mL 08/01/16 08/01/16 08/01/16 Range/Units 05:32 05:32 10:58 RBC (3.80-5.40) m/uL Hgb (11.4-16.0) gm/dL MCHC (31.0-37.0) g/dL RDW (11.5-15.5) % Lymphocytes # (1.0-4.8) k/uL D-Dimer (<0.60) mg/L FEU Sodium (137-145) mmol/L Potassium (3.5-5.1) mmol/L Chloride (98-107) mmol/L BUN (7-17) mg/dL Creatinine (0.52-1.04) mg/dL Glucose (74-99) mg/dL POC Glucose (mg/dL) 386 H (75-99) mg/dL Phosphorus 8.3 H* (2.5-4.5) mg/dL AST (14-36) U/L ALT (9-52) U/L Troponin I 0.080 H* (0.000-0.034) ng/mL 08/01/16 Range/Units 13:39 RBC (3.80-5.40) m/uL Hgb (11.4-16.0) gm/dL MCHC (31.0-37.0) g/dL RDW (11.5-15.5) % Lymphocytes # (1.0-4.8) k/uL D-Dimer (<0.60) mg/L FEU Sodium (137-145) mmol/L Potassium (3.5-5.1) mmol/L Chloride (98-107) mmol/L BUN (7-17) mg/dL Creatinine (0.52-1.04) mg/dL Glucose (74-99) mg/dL POC Glucose (mg/dL) 180 H (75-99) mg/dL Phosphorus (2.5-4.5) mg/dL AST (14-36) U/L ALT (9-52) U/L Troponin I (0.000-0.034) ng/mL Assessment and Plan Plan: #1 acute exacerbation of heart failure that is diastolic in nature #2 indeterminant troponin leak with underlying CAD #3 ESRD and hemodialysis #4 anemia of ESRD #5 hyperkalemia #6 hypertension that is erratic #7 suspected underlying sleep apnea #8 acute hypoxic respiratory failure secondary to an acute exacerbation of congestive heart failure #9 accelerated hypertension likely causing #8 #10 diabetes mellitus type 2 with uncontrolled hyperglycemia on admission Plan Restart home regimen of insulin titrated of nitroglycerin drip home medications will be reconciled patient is undergoing ultrafiltration of 3.3 L target Patient should likely have a cardiac catheterization during this admission. Do suspect some underlying sleep apnea once patient is off oxygen will perform a nocturnal study to pursue need for O2 at night if not patient will be referred to Dr. Ramirez for sleep study thereafter
[2016-08-01] MEDS ORDERED: ACETAMINOPHEN TAB 500 MG TAB PO STA (15:28)
--- NOTE | 2016-08-01 15:35 | P.CNPUL ---
History of Present Illness Consult date: 08/01/16 Reason for consult: dyspnea History of present illness: 56-year-old -[place] female patient with known history of coronary artery disease with a recent myocardial infarction who was supposed to come in today and undergo a cardiac catheterization an elective basis with Dr Fonseca from cardiology. 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 The patient woke up at around 2 AM this morning having trouble breathing and she was having increased shortness of breath and for that reason she was brought into the hospital. EKG was noted and there is no acute ST segment elevation or depression. The patient was quite hypertensive with a systolic blood pressure in the 180-190 range. The patient was in acute pulmonary edema. The patient was placed on a BiPAP for respiratory support. The patient was also placed on nitroglycerin drip which improved her blood pressure control. At the time of my evaluation, the patient was undergoing dialysis with the goal of 3000 mL of ultrafiltration. Apparently plans are being made to dilate this patient tomorrow. No cardiac catheterization will be done today. The patient is fairly of any chest pain. No headache. No focal neurological deficits. No nausea. No vomiting no vision changes. No seizure activity. No other complaints otherwise for now. She has a preserved LV function based on a previous echocardiogram. Cardiology is on the case. Review of Systems All systems: negative Constitutional: Denies chills, Denies fever Eyes: denies blurred vision, denies pain Ears, nose, mouth and throat: Denies headache, Denies sore throat Cardiovascular: Denies chest pain, Denies shortness of breath Respiratory: Denies cough Gastrointestinal: Denies abdominal pain, Denies diarrhea, Denies nausea, Denies vomiting Genitourinary: Denies dysuria, Denies hematuria Musculoskeletal: Denies myalgias Integumentary: Denies pruritus, Denies rash Neurological: Denies numbness, Denies weakness Psychiatric: Denies anxiety, Denies depression Endocrine: Denies fatigue, Denies weight change Past Medical History Past Medical History: Coronary Artery Disease (CAD), CVA/TIA, Diabetes Mellitus , GERD/Reflux, GI Bleed, Hyperlipidemia, Osteoarthritis (OA), Pneumonia, Renal Disease, Vascular Disorder Additional Past Medical History / Comment(s): Chronic renal failure stage IV with hemodialysis MWF, CVA 2007 with some peripheral vision problems R eye, lower GI bleed, PAD, DJD, diverticulosis, peripheral neuropathy bilateral feet, pancreatitis, See Dr Calixto H &P, History of Any Multi-Drug Resistant Organisms: None Reported Past Surgical History: Cholecystectomy, Heart Catheterization With Stent, Hysterectomy Additional Past Surgical History / Comment(s): L upper arm for dialysis, 3 Cardiac stents, on stent rt leg, colonoscopies , bilateral cataract removal, laser sx bilateral eyes for retinopathy, D&C, left axillary I&D Past Anesthesia/Blood Transfusion Reactions: Motion Sickness, Postoperative Nausea & Vomiting (PONV) Additional Past Anesthesia/Blood Transfusion Reaction / Comment(s): Pt has received blood in the past without reaction. Date of Last Stent Placement:: 09/22/13 Past Psychological History: No Psychological Hx Reported Additional Psychological History / Comment(s): .. Smoking Status: Former smoker Past Alcohol Use History: Occasional Additional Past Alcohol Use History / Comment(s): Pt smoked from 1983 to 2012. 1 PPD Past Drug Use History: None Reported - Past Family History Mother Family Medical History: No Reported History Additional Family Medical History / Comment(s): Mother is 75 yrs old. Father Family Medical History: Diabetes Mellitus Additional Family Medical History / Comment(s): Father at the age of 42 yrs -pt did not discuss cause of . Medications and Allergies Home Medications Medication Instructions Recorded Confirmed Type Furosemide [Lasix] 80 mg PO BID 09/17/13 08/01/16 History Albuterol Inhaler [Ventolin Hfa 1 puff INHALATION RT-BID PRN 02/12/16 08/01/16 History Inhaler] Insulin Aspart [NovoLOG Flexpen] 12 unit SQ AC-BRKFST 02/12/16 08/01/16 History Atorvastatin [Lipitor] 40 mg PO HS 07/16/16 08/01/16 History Insulin Aspart [NovoLOG Flexpen] 14 units SQ AC-LUNCH 07/16/16 08/01/16 History Insulin Aspart [NovoLOG Flexpen] 16 units SQ AC-SUPPER 07/16/16 08/01/16 History Insulin Glargine,Hum.rec.anlog 38 unit SQ HS 07/16/16 08/01/16 History [Lantus Solostar] Metoprolol Tartrate [Lopressor] 50 mg PO BID 07/16/16 08/01/16 History ALPRAZolam [Xanax] 0.25 mg PO HS PRN 07/29/16 08/01/16 History Calcium Acetate [Phoslo] 1,334 mg PO DAILY 08/01/16 08/01/16 History Calcium Acetate [Phoslo] 667 mg PO BID 08/01/16 08/01/16 History amLODIPine [Norvasc] 2.5 mg PO DAILY 08/01/16 08/01/16 History Allergies Allergy/AdvReac Type Severity Reaction Status Date / Time iodine Allergy Anaphylaxis Verified 08/01/16 07:15 Penicillins Allergy Rash/Hives Verified 08/01/16 07:15 shellfish derived Allergy Anaphylaxis Verified 08/01/16 07:15 clonidine AdvReac Unknown Verified 08/01/16 07:15 Physical Exam Vitals: Vital Signs Temp Pulse Resp BP Pulse Ox 08/01/16 15:19 85 18 156/70 100 08/01/16 14:17 84 18 169/81 97 08/01/16 13:24 85 18 144/77 97 08/01/16 12:52 84 18 144/72 98 08/01/16 10:05 18 08/01/16 07:26 90 18 165/83 97 08/01/16 07:07 90 30 H 165/83 100 08/01/16 06:49 65 23 171/84 100 08/01/16 06:26 93 28 H 176/91 100 08/01/16 06:05 94 25 H 171/78 100 08/01/16 05:53 100 24 171/79 100 08/01/16 05:28 108 H 30 H 184/93 96 08/01/16 05:16 102 H 30 H 181/84 100 08/01/16 05:11 107 H 36 H 182/85 100 08/01/16 05:04 112 H 36 H 211/101 100 08/01/16 04:31 97.4 F L 107 H 36 H 197/84 99 Intake and Output 08/01/16 08/01/1617 06:59 14:59 22:59 Intake Total 0.2 Balance 0.2 Intake: Intake, IV Titration 0.2 Amount Nitroglycerin-D5w Pmx 50 0.2 mg In Dextrose/Water 1 250ml.bag @ 20 MCG/MIN 6 mls/hr IV .Q24H ONE Rx#: [id number] Other: Weight 68.492 kg The patient appeared well nourished and normally developed. Vital signs as documented. Head exam is unremarkable. No scleral icterus or corneal arcus noted. Neck is without jugular venous distension, thyromegaly, or carotid bruits. Carotid upstrokes are brisk bilaterally. Lungs show diminished breath sounds bilaterally and few crackles in the lung bases. No wheezes. No rhonchi. Cardiac exam reveals the PMI to be normally sized and situated. Rhythm is regular. First and second heart sounds normal. No murmurs, rubs or gallops. Abdominal exam reveals normal bowel sounds, no masses, no organomegaly and no aortic enlargement. Extremities are nonedematous and both femoral and pedal pulses are normal. Results - Laboratory Findings CBC and BMP: 08/01/16 05:32 08/01/16 05:32 PT/INR, D-dimer PT 10.3 sec (9.0-12.0) 08/01/16 05:32 INR 1.0 (<1.1) 08/01/16 05:32 D-Dimer 1.23 mg/L FEU (<0.60) H 08/01/16 05:32 Abnormal lab findings: Abnormal Labs 08/01/16 08/01/16 08/01/16 05:32 05:32 05:32 RBC 3.43 L Hgb 10.4 L MCHC 30.3 L RDW 19.9 H Lymphocytes # 0.2 L D-Dimer 1.23 H Sodium 135 L Potassium 5.8 H Chloride 94 L BUN 51 H Creatinine 8.50 H* Glucose 521 H* POC Glucose (mg/dL) Phosphorus AST 124 H ALT 82 H Troponin I 08/01/16 08/01/16 08/01/16 05:32 05:32 10:58 RBC Hgb MCHC RDW Lymphocytes # D-Dimer Sodium Potassium Chloride BUN Creatinine Glucose POC Glucose (mg/dL) 386 H Phosphorus 8.3 H* AST ALT Troponin I 0.080 H* 08/01/16 13:39 RBC Hgb MCHC RDW Lymphocytes # D-Dimer Sodium Potassium Chloride BUN Creatinine Glucose POC Glucose (mg/dL) 180 H Phosphorus AST ALT Troponin I - Diagnostic Findings Chest x-ray: image reviewed Assessment and Plan Plan: Assessment 1 acute dyspnea/hypoxia history failure due to flash pulmonary edema probably the setting of hypertensive urgency and CHF with diastolic failure. 2 coronary artery disease with recent non-ST segment elevation myocardial infarction 3 end-stage renal disease on hemodialysis as mentioned above 4 diabetes mellitus with poorly controlled blood sugars 5 hyperkalemia 6 hypertension 7 hyperlipidemia 8 CVA/TIA 9 GERD 10 previous history of GI bleed 11 osteoarthritis 12. Peripheral Vascular disease 13 diverticulosis Plan The patient will be admitted to telemetry unit. The patient is less short of breath as the patient is being dialyzed and ultrafiltrate that. Another session of ultrafiltration be done tomorrow. We'll recommend tighter blood sugar control and the patient is taken off the nitroglycerin drip and the patient will be restarted back on amlodipine and metoprolol the dose of which are being adjusted based on her blood pressure control. Would recommend tighter blood sugar control. Monitor blood sugars. Cardiac catheterization at a later stage regarding the possibility of underlying coronary artery disease. We'll continue following up this patient along with the rest of the consultants. No need to come to the ICU. The patient be transferred to telemetry unit. Less short of breath. Discontinue the BiPAP.
[2016-08-01 16:27] LABS: Glucose,Whole Blood 207 mg/dL (75-99)
[2016-08-01] MEDS: INSULIN LISPRO (humaLOG) 300 UNIT/3 ML VIAL SQ SCH (17:37)
[2016-08-01 18:56] VITALS: BMI 25.1
[2016-08-01] MEDS: CLOPIDOGREL 75 MG TAB PO SCH (21:09)
[2016-08-01] MEDS: FUROSEMIDE 80 MG TAB PO SCH (21:09)
[2016-08-01] MEDS: ATORVASTATIN 40 MG TAB PO SCH (21:09)
[2016-08-01] MEDS: METOPROLOL TARTRATE 50 MG TAB PO SCH (21:09)
[2016-08-01] MEDS: CALCIUM ACETATE 667 MG CAP PO SCH (21:09)
[2016-08-01 21:27] LABS: Glucose,Whole Blood 239 mg/dL (75-99)
[2016-08-01] MEDS: ALPRAZolam 0.25 MG TAB PO PRN (22:37)
[2016-08-01] MEDS: INSULIN GLARGINE 100 UNIT/ML 10 ML VIAL SQ SCH (22:37)
[2016-08-02 06:28] LABS: Glucose,Whole Blood 249 mg/dL (75-99)
[2016-08-02] MEDS: INSULIN LISPRO (humaLOG) 300 UNIT/3 ML VIAL SQ SCH ×3 (06:41→17:31)
[2016-08-02] MEDS: CALCIUM ACETATE 667 MG CAP PO SCH ×3 (08:40→17:31)
[2016-08-02] MEDS: CLOPIDOGREL 75 MG TAB PO SCH (08:40)
[2016-08-02] MEDS: FUROSEMIDE 80 MG TAB PO SCH ×2 (08:40→21:47)
[2016-08-02] MEDS: METOPROLOL TARTRATE 50 MG TAB PO SCH ×2 (08:40→21:47)
[2016-08-02] MEDS: amLODIPine 2.5 MG TAB PO SCH (08:40)
[2016-08-02] MEDS ORDERED: CLOPIDOGREL 75 MG TAB PO SCH (09:00)
--- NOTE | 2016-08-02 09:06 | P.PN ---
Subjective Patient is seen in follow-up for end-stage renal disease. She is maintained on hemodialysis on a Thursday schedule via left upper extremity AV graft. Patient presented with dyspnea and fluid overload. She underwent hemodialysis yesterday. She's currently sitting up in bed. Dyspnea is significantly improved. She is off nitroglycerin drip. Blood pressures are well controlled. Denies chest pain. No vomiting or diarrhea. Vital signs are stable. General: The patient appeared well nourished and normally developed. HEENT: Head exam is unremarkable. Neck is without jugular venous distension. LUNGS: Lungs are clear to auscultation and percussion. Breath sounds decreased. HEART: Rate and Rhythm are regular. First and second heart sounds normal. No murmurs, rubs or gallops. ABDOMEN: Abdominal exam reveals normal bowel sounds. Non-tender and non- distended. No evidence of peritonitis. EXTREMITITES: No clubbing, cyanosis, or edema. Objective - Vital Signs Vital signs: Vital Signs Temp 97.6 F 08/02/16 04:00 Pulse 79 08/02/16 04:00 Resp 18 08/02/16 04:00 BP 129/60 08/02/16 04:00 Pulse Ox 100 08/02/16 04:00 Intake & Output 08/01/16 08/02/16 08/02/16 18:59 06:59 18:59 Intake Total 200 50 Balance 200 50 Intake: Amount of Fluid Infused ( 200 ml) Oral 50 - Labs CBC & Chem 7: 08/01/16 05:32 08/01/16 05:32 Labs: Abnormal Lab Results - Last 24 Hours (Table) 08/01/16 08/01/16 08/01/16 Range/Units 05:32 10:58 13:39 POC Glucose (mg/dL) 386 H 180 H (75-99) mg/dL Phosphorus 8.3 H* (2.5-4.5) mg/dL 08/01/16 08/01/16 08/02/16 Range/Units 16:22 20:44 06:26 POC Glucose (mg/dL) 207 H 239 H 249 H (75-99) mg/dL Phosphorus (2.5-4.5) mg/dL Assessment and Plan Plan: Assessment: #1. End-stage renal disease maintained on hemodialysis on a Thursday schedule via left upper extremity AV graft. #2. Volume overload. Improved postdialysis. #3. Hypertension with chronic kidney disease. Controlled. #4. Anemia of chronic kidney disease. Hemoglobin at goal. #5. Chronic kidney disease mineral bone disease. #6. Insulin-dependent diabetes mellitus. #7. History of coronary artery disease. Plan: Hemodialysis today for 2 hours with goal 1-2 L ultrafiltration. Increase PhosLo to 3 times daily with meals. Add Renvela 800 mg 3 times daily with meals. Cardiology following. Possible cardiac catheterization this admission.
[2016-08-02 12:07] LABS: Glucose,Whole Blood 329 mg/dL (75-99)
[2016-08-02] MEDS: SEVELAMER 800 MG TAB PO SCH ×2 (12:13→17:31)
--- NOTE | 2016-08-02 14:38 | P.PN ---
Subjective 56-year-old -[place] female patient with known history of coronary artery disease with a recent myocardial infarction who was supposed to come in today and undergo a cardiac catheterization an elective basis with Dr Fonseca from cardiology. 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 The patient woke up at around 2 AM this morning having trouble breathing and she was having increased shortness of breath and for that reason she was brought into the hospital. EKG was noted and there is no acute ST segment elevation or depression. The patient was quite hypertensive with a systolic blood pressure in the 180-190 range. The patient was in acute pulmonary edema. The patient was placed on a BiPAP for respiratory support. The patient was also placed on nitroglycerin drip which improved her blood pressure control. At the time of my evaluation, the patient was undergoing dialysis with the goal of 3000 mL of ultrafiltration. Apparently plans are being made to dilate this patient tomorrow. No cardiac catheterization will be done today. The patient is fairly of any chest pain. No headache. No focal neurological deficits. No nausea. No vomiting no vision changes. No seizure activity. No other complaints otherwise for now. She has a preserved LV function based on a previous echocardiogram. Cardiology is on the case. On 08/02/2016 the patient is being seen in follow-up. The patient is feeling much better and she is of oxygen. She'll be having another session of dialysis this afternoon. Note that her dialysis was done yesterday and total amount of liters of fluid was removed and the patient had symptomatic relief. No cough. No chest pain. No other complaints otherwise for now. Objective - Vital Signs Vital signs: Vital Signs Temp 97.6 F 08/02/16 08:00 Pulse 77 08/02/16 12:00 Resp 16 08/02/16 12:00 BP 170/72 08/02/16 12:00 Pulse Ox 99 08/02/16 12:00 Intake & Output 08/01/16 08/02/16 08/02/16 18:59 06:59 18:59 Intake Total 200 50 200 Balance 200 50 200 Weight 68.492 kg Intake: Amount of Fluid Infused ( 200 ml) Oral 50 200 - Exam The patient appeared well nourished and normally developed. Vital signs as documented. Head exam is unremarkable. No scleral icterus or corneal arcus noted. Neck is without jugular venous distension, thyromegaly, or carotid bruits. Carotid upstrokes are brisk bilaterally. Lungs are clear to auscultation and percussion. Cardiac exam reveals the PMI to be normally sized and situated. Rhythm is regular. First and second heart sounds normal. No murmurs, rubs or gallops. Abdominal exam reveals normal bowel sounds, no masses , no organomegaly and no aortic enlargement. Extremities are nonedematous and both femoral and pedal pulses are normal. The patient has an AV fistula in the left upper extremity which is quite functional at this point - Labs CBC & Chem 7: 08/01/16 05:32 08/01/16 05:32 Labs: Abnormal Lab Results - Last 24 Hours (Table) 08/01/16 08/01/16 08/02/16 Range/Units 16:22 20:44 06:26 POC Glucose (mg/dL) 207 H 239 H 249 H (75-99) mg/dL 08/02/16 Range/Units 11:55 POC Glucose (mg/dL) 329 H (75-99) mg/dL Assessment and Plan Plan: Assessment 1 acute dyspnea/hypoxia history failure due to flash pulmonary edema probably the setting of hypertensive urgency and CHF with diastolic failure. 2 coronary artery disease with recent non-ST segment elevation myocardial infarction 3 end-stage renal disease on hemodialysis as mentioned above 4 diabetes mellitus with poorly controlled blood sugars 5 hyperkalemia 6 hypertension 7 hyperlipidemia 8 CVA/TIA 9 GERD 10 previous history of GI bleed 11 osteoarthritis 12. Peripheral Vascular disease 13 diverticulosis Plan The patient underwent successful dialysis yesterday and another session will be done today. Her volume status is being optimized.Her blood pressure is under much better control. We'll continue to follow. Nephrology is on the case. We' ll ask for tighter blood sugar control by this patient and internal medicine is working on on that matter.
--- NOTE | 2016-08-02 16:10 | PN ---
This patient is doing better. Her breathing is a lot better. She underwent dialysis yesterday. She denies any chest discomfort, dizziness, lightheadedness. Her cardiac catheterization was held yesterday. On examination, her blood pressure is 130/63 mmHg. Heart rates are in the 70s. She is afebrile, 97.6 degrees Fahrenheit. Head and neck examination is normal. Heart sounds S1, S2 are soft. Lungs are clear on auscultation. Extremities are warm. No edema. IMPRESSION: 1. Congestive heart failure, fluid overload. 2. Diabetes. 3. End-stage renal disease, on dialysis. 4. Dyslipidemia. 5. History of coronary artery disease, status post stenting in the past. SUGGEST: Continue with hypertension management and dialysis and management of kidney disease. Cardiac catheterization in the next [address] Contreras.
[2016-08-02 16:32] LABS: Glucose,Whole Blood 166 mg/dL (75-99)
[2016-08-02 17:05] LABS: Hepatitis B Surface Ag Index 0.05
--- NOTE | 2016-08-02 18:19 | P.PN ---
Subjective 56-year-old female with history of CAD ESRD and hemodialysis hypertension dyslipidemia comes in to the hospital with complaints of sudden onset difficulty breathing. Patient has had a similar episode 2 weeks prior where she woke up at 2 AM in the morning with sudden onset difficulty breathing. Patient does state to have significant snoring however has never been diagnosed with sleep apnea. At that time patient was noted to have some EKG changes with a troponin elevation however patient wanted to delay her heart a catheterization which was supposed to be today. Patient had a similar episode where she woke up again the middle of the night with complaints of difficulty breathing was diaphoretic apparently and came in to the hospital was noted to have a systolic blood pressure around [id number] Patient was noted to be in heart failure with physical exam findings Patient was started on nitroglycerin drip. During my evaluation patient was undergoing hemodialysis with the left upper arm fistula Patient has not missed any of her dialysis sessions. Patient states her blood pressure has been erratic in the recent times. EKG is suboptimal that was done in the emergency room at the time of my evaluation states that she denies having any headaches blurry vision nausea vomiting abdominal pain urinary urgency frequency or lower extremity edema. 08/02/16 Improved on 2 l o2 denies cp, n/v, abdominal pain, diarrhea, KATT reported today Objective - Vital Signs Vital signs: Vital Signs Temp 97.6 F 08/02/16 08:00 Pulse 74 08/02/16 15:58 Resp 18 08/02/16 15:58 BP 102/50 08/02/16 15:58 Pulse Ox 98 08/02/16 15:58 Intake & Output 08/01/16 08/02/16 08/02/16 18:59 06:59 18:59 Intake Total 200 50 200 Balance 200 50 200 Weight 68.492 kg Intake: Amount of Fluid Infused ( 200 ml) Oral 50 200 - Constitutional General appearance: Present: no acute distress - EENT Eyes: Present: EOMI, PERRLA - Neck Neck: Present: normal ROM - Respiratory Respiratory: bilateral: CTA, negative: rales - Cardiovascular Rhythm: regular Heart sounds: normal: S1, S2 Abnormal Heart Sounds: Absent: systolic murmur - Gastrointestinal General gastrointestinal: Present: normal bowel sounds, soft. Absent: organomegaly - Integumentary Integumentary: Present: normal - Neurologic Neurologic: Present: CNII-XII intact. Absent: focal deficits - Musculoskeletal Musculoskeletal: Present: gait normal - Psychiatric Psychiatric: Present: A&O x's 3. Absent: appropriate affect - Labs CBC & Chem 7: 08/01/16 05:32 08/01/16 05:32 Labs: Abnormal Lab Results - Last 24 Hours (Table) 08/01/16 08/02/16 08/02/16 Range/Units 20:44 06:26 11:55 POC Glucose (mg/dL) 239 H 249 H 329 H (75-99) mg/dL 08/02/16 Range/Units 16:30 POC Glucose (mg/dL) 166 H (75-99) mg/dL Assessment and Plan Plan: #1 acute exacerbation of heart failure that is diastolic in nature #2 indeterminant troponin leak with underlying CAD #3 ESRD and hemodialysis #4 anemia of ESRD #5 hyperkalemia #6 hypertension that is erratic #7 suspected underlying sleep apnea #8 acute hypoxic respiratory failure secondary to an acute exacerbation of congestive heart failure #9 accelerated hypertension likely causing #8 #10 diabetes mellitus type 2 with uncontrolled hyperglycemia on admission Plan vitals stable improved Cath ree? Patient should likely have a cardiac catheterization during this admission. Do suspect some underlying sleep apnea once patient is off oxygen will perform a nocturnal study to pursue need for O2 at night if not patient will be referred to Dr. Ramirez for sleep study thereafter
[2016-08-02] MEDS ORDERED: GELATIN SPONGE,ABSORB (SMALL) 1 EACH SPONGE ONE (20:30)
[2016-08-02 20:51] LABS: Glucose,Whole Blood 182 mg/dL (75-99)
[2016-08-02] MEDS: INSULIN GLARGINE 100 UNIT/ML 10 ML VIAL SQ SCH (21:46)
[2016-08-02] MEDS: ALPRAZolam 0.25 MG TAB PO PRN (21:48)
[2016-08-02] MEDS: ATORVASTATIN 40 MG TAB PO SCH (23:35)
[2016-08-03] MEDS ORDERED: methylPREDNISolone SOD SUCCI 125 MG/2 ML VIAL IV STA (04:46)
[2016-08-03] MEDS ORDERED: diphenhydrAMINE 50 MG/ML 1 ML VIAL IVP STA (04:58)
[2016-08-03] MEDS: METOPROLOL TARTRATE 50 MG TAB PO SCH ×2 (05:28→21:20)
[2016-08-03] MEDS: CLOPIDOGREL 75 MG TAB PO SCH (05:34)
[2016-08-03 06:32] LABS: Glucose,Whole Blood 278 mg/dL (75-99)
[2016-08-03] MEDS ORDERED: HEPARIN SODIUM 1,000 UNIT/ML VIAL ONE (06:48)
[2016-08-03] MEDS ORDERED: LIDOCAINE 2% INJ 20 MG/ML (20 ML MDV) ONE (06:48)
[2016-08-03] MEDS ORDERED: MIDAZOLAM 2 MG/2 ML VIAL ONE (06:57)
[2016-08-03 07:36] LABS: Anisocytosis Moderate; Basophils % (A) 0 %; CH 29.4; CHCM 29.8; Eosinophils # (A) 0.1 k/uL (0-0.7); Eosinophils % (A) 1 %; HCT 35.3 % (34.0-46.0); HDW 3.04; HGB 10.8 gm/dL (11.4-16.0); Hypochromasia Marked; Luc # (Auto) 0.08; Luc % (Auto) 1; Lymphocytes # (A) 0.7 k/uL (1.0-4.8); Lymphocytes % (A) 5 %; MCH 30.2 pg (25.0-35.0); MCHC 30.5 g/dL (31.0-37.0); Macrocytosis Moderate; Mean Platelet Volume 7.2; Monocytes # (A) 0.4 k/uL (0-1.0); Monocytes % (A) 3 %; Neutrophils # (A) 13.3 k/uL (1.3-7.7); Neutrophils % (A) 91 %; RBC 3.57 m/uL (3.80-5.40); RDW 20.1 % (11.5-15.5); WBC 14.6 k/uL (3.8-10.6); WBC (Perox) 15.17
[2016-08-03] MEDS ORDERED: niCARdipine 25 MG/10 ML VIAL ONE (08:10)
[2016-08-03] MEDS ORDERED: HYDROmorphone 2 MG/ML 1 ML SYRINGE ONE (08:20)
[2016-08-03 08:30] LABS: Calcium 9.2 mg/dL (8.4-10.2); Potassium 5.5 mmol/L (3.5-5.1); Total Bilirubin 0.7 mg/dL (0.2-1.3); Total Protein 6.4 g/dL (6.3-8.2)
[2016-08-03] MEDS ORDERED: fentaNYL (PF) 50 MCG/ML 2 ML AMP ONE (08:31)
[2016-08-03] MEDS ORDERED: NITROGLYCERIN SL TABS 0.4 MG TAB SUBLINGUAL PRN (08:49)
[2016-08-03] MEDS ORDERED: RX INFO: IV CONTRAST WAS GIVEN 1 EACH MISC MISCELLANE PRN (08:49)
[2016-08-03] MEDS ORDERED: ZOLPIDEM 5 MG TAB PO PRN (08:49)
[2016-08-03] MEDS ORDERED: ATROPINE SULFATE 0.1 MG/ML 10ML SYRINGE IV PRN (08:49)
[2016-08-03] MEDS ORDERED: CLOPIDOGREL 75 MG TAB ONE (08:55)
[2016-08-03] MEDS ORDERED: SODIUM CHLORIDE 0.9% 1,000 ML IV SCH (09:00)
--- NOTE | 2016-08-03 09:28 | CC ---
DATE OF SERVICE: 08/03/2016 PERFORMING PHYSICIAN: Bola Contreras M.D., costume shop coordinator. PROCEDURE PERFORMED: 1. Selective right and left coronary angiogram. 2. An attempted angioplasty on the right coronary artery. 3. Successful balloon angioplasty on the ramus intermedius coronary artery. 4. Selective right common femoral artery angiogram. INDICATION: This is a pleasant 56-year-old female patient who sees Dr. Calixto as an outpatient, who presented to the hospital with chest discomfort and was diagnosed with acute non- STEMI. I was requested to perform a heart catheterization on her by Dr. Calixto who was going to leave out of town. Approach: Right common femoral artery. COMPLICATIONS: None. Level of sedation: Moderate with sedation length of an hour and a half. PROCEDURE DESCRIPTION: After obtaining informed consent, the patient was brought to the laborer poultry [facility]. Right common femoral artery was cannulated using micropuncture technique. Micropuncture wire passed easily. Then I placed 6 Georgian sheath in the right common femoral artery. Subsequently I did selective right and left coronary angiogram using JR4 and JL4 catheters. After that, I did try to intervene on the right coronary artery. Please see separate paragraph for that. After that, I did intervene on ramus intermedius as well and please see separate paragraph for that. SELECTIVE CORONARY ANGIOGRAM: 1. The right coronary artery is a large-caliber vessel and it is a dominant vessel. The right coronary artery is stented in the mid to distal portion and totally occluded, which seems to be in-stent occlusion. 2. The left main is angiographically normal. It bifurcates into the left circumflex, ramus intermedius, and the left anterior descending coronary artery. The left circumflex is a medium caliber vessel. It is a nondominant vessel. The proximal left circumflex appeared to have mild disease only and gives rises into first OM, which is a moderate-caliber vessel which seems to be angiographically normal. The left circumflex continues to be as a small-caliber vessel in the AV groove. 3. The ramus intermedius is a medium caliber vessel, which seems to be subtotally occluded in the proximal portion. 4. Left anterior descending artery is a large-caliber vessel. The LAD appeared to be angiographically normal. Extensive left to right collaterals filling the distal right coronary artery through septal new car make ready worker were seen as well. Attempted PCI of the RCA: Anticoagulation was initiated using Angiomax. Subsequently I used the JR4 guide and the RCA was engaged. I tried to cross the MACHINE STRAP BUCKLER of the RCA using a whisper wire, Choice PT wire, filter XT wire, and I was unable and then I decided to stop. PTCA of the ramus intermedius, I took JL 4 guiding catheter, and the left main was engaged. I crossed the ramus intermedius using a whisper wire. I tried to advance 1.5 mm balloon but the balloon will not cross so at that point, I did double wire the ramus using a whisper wire, and run-through wire. After that, I was able to advance 2.0 x 12 mm balloon which was inflated. I attempted advancing a stent to the ramus intermedius, but the stent will not cross the lesion and at that point, I decided to stop. The final angiogram showed a reasonable angiographic results with refusing the stenosis from 99% to 50%. CONCLUSION: 1. 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 2. Critical disease involving ramus intermedius coronary artery. 3. Mild disease involving the left circumflex. 4. Mild disease involving the LAD. 5. Successful balloon angioplasty of intermedius using 2-0 mm balloon with reasonable angiographic result with a good angiographic results. POSTPROCEDURE MANAGEMENT: 1. Dual antiplatelet therapy. 2. Risk factor modifications. 3. Will follow up with the patient.
[2016-08-03] MEDS: amLODIPine 2.5 MG TAB PO SCH (09:51)
[2016-08-03] MEDS: CALCIUM ACETATE 667 MG CAP PO SCH ×3 (09:51→17:32)
[2016-08-03] MEDS: SEVELAMER 800 MG TAB PO SCH ×3 (09:51→17:32)
[2016-08-03] MEDS: FUROSEMIDE 80 MG TAB PO SCH ×2 (09:52→21:20)
[2016-08-03] MEDS: INSULIN LISPRO (humaLOG) 300 UNIT/3 ML VIAL SQ SCH ×4 (09:52→21:22)
--- NOTE | 2016-08-03 09:52 | P.PN ---
Subjective Patient is seen in follow-up for end-stage renal disease. She is maintained on hemodialysis on a Thursday schedule via left upper extremity AV graft. Patient presented with dyspnea and fluid overload. She underwent hemodialysis Thursday and Thursday. Dyspnea is significantly improved. Denies chest pain. No vomiting or diarrhea. Hemodynamically stable. She underwent cardiac catheterization this morning and underwent balloon angioplasty of the ramus intermedius coronary artery. Vital signs are stable. General: The patient appeared well nourished and normally developed. HEENT: Head exam is unremarkable. Neck is without jugular venous distension. LUNGS: Lungs are clear to auscultation and percussion. Breath sounds decreased. HEART: Rate and Rhythm are regular. First and second heart sounds normal. No murmurs, rubs or gallops. ABDOMEN: Abdominal exam reveals normal bowel sounds. Non-tender and non- distended. No evidence of peritonitis. EXTREMITITES: No clubbing, cyanosis, or edema. Objective - Vital Signs Vital signs: Vital Signs Temp 99.5 F 08/03/16 04:00 Pulse 93 08/03/16 04:00 Resp 18 08/03/16 04:00 BP 149/65 08/03/16 04:00 Pulse Ox 93 L 08/03/16 04:00 Intake & Output 08/02/16 08/03/16 08/03/16 18:59 06:59 18:59 Intake Total 380 480 Balance 380 480 Weight 68.492 kg 68.3 kg Intake: Oral 380 480 Other: # Voids 1 1 - Labs CBC & Chem 7: 08/03/16 07:22 08/03/16 07:22 Labs: Abnormal Lab Results - Last 24 Hours (Table) 08/02/16 08/02/16 08/02/16 Range/Units 11:55 16:30 20:50 WBC (3.8-10.6) k/uL RBC (3.80-5.40) m/uL Hgb (11.4-16.0) gm/dL MCHC (31.0-37.0) g/dL RDW (11.5-15.5) % Neutrophils # (1.3-7.7) k/uL Lymphocytes # (1.0-4.8) k/uL Sodium (137-145) mmol/L Potassium (3.5-5.1) mmol/L Carbon Dioxide (22-30) mmol/L BUN (7-17) mg/dL Creatinine (0.52-1.04) mg/dL Glucose (74-99) mg/dL POC Glucose (mg/dL) 329 H 166 H 182 H (75-99) mg/dL 08/03/16 08/03/16 08/03/16 Range/Units 06:19 07:22 07:22 WBC 14.6 H (3.8-10.6) k/uL RBC 3.57 L (3.80-5.40) m/uL Hgb 10.8 L (11.4-16.0) gm/dL MCHC 30.5 L (31.0-37.0) g/dL RDW 20.1 H (11.5-15.5) % Neutrophils # 13.3 H (1.3-7.7) k/uL Lymphocytes # 0.7 L (1.0-4.8) k/uL Sodium 134 L (137-145) mmol/L Potassium 5.5 H (3.5-5.1) mmol/L Carbon Dioxide 20 L (22-30) mmol/L BUN 46 H (7-17) mg/dL Creatinine 5.44 H* (0.52-1.04) mg/dL Glucose 383 H (74-99) mg/dL POC Glucose (mg/dL) 278 H (75-99) mg/dL Assessment and Plan Plan: Assessment: #1. End-stage renal disease maintained on hemodialysis on a Thursday schedule via left upper extremity AV graft. #2. Volume overload. Improved postdialysis. #3. Hypertension with chronic kidney disease. Controlled. #4. Anemia of chronic kidney disease. Hemoglobin at goal. #5. Chronic kidney disease mineral bone disease. #6. Insulin-dependent diabetes mellitus. #7. History of coronary artery disease. Plan: Hemodialysis tomorrow with goal 2-3 L ultrafiltration. Continue PhosLo 3 times daily with meals. Maintain Renvela 800 mg 3 times daily with meals. Cardiology following.
[2016-08-03] MEDS: ASPIRIN 325 MG TAB PO SCH (09:55)
[2016-08-03 12:23] LABS: Glucose,Whole Blood 444 mg/dL (75-99)
--- NOTE | 2016-08-03 14:11 | P.PN ---
Subjective 56-year-old -[place] female patient with known history of coronary artery disease with a recent myocardial infarction who was supposed to come in today and undergo a cardiac catheterization an elective basis with Dr Fonseca from cardiology. 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 The patient woke up at around 2 AM this morning having trouble breathing and she was having increased shortness of breath and for that reason she was brought into the hospital. EKG was noted and there is no acute ST segment elevation or depression. The patient was quite hypertensive with a systolic blood pressure in the 180-190 range. The patient was in acute pulmonary edema. The patient was placed on a BiPAP for respiratory support. The patient was also placed on nitroglycerin drip which improved her blood pressure control. At the time of my evaluation, the patient was undergoing dialysis with the goal of 3000 mL of ultrafiltration. Apparently plans are being made to dilate this patient tomorrow. No cardiac catheterization will be done today. The patient is fairly of any chest pain. No headache. No focal neurological deficits. No nausea. No vomiting no vision changes. No seizure activity. No other complaints otherwise for now. She has a preserved LV function based on a previous echocardiogram. Cardiology is on the case. On 08/02/2016 the patient is being seen in follow-up. The patient is feeling much better and she is of oxygen. She'll be having another session of dialysis this afternoon. Note that her dialysis was done yesterday and total amount of liters of fluid was removed and the patient had symptomatic relief. No cough. No chest pain. No other complaints otherwise for now. On 08/03/2016, the patient is doing well. The patient underwent dialysis yesterday. No respiratory distress. This morning the patient was taken to cardiac catheterization and the patient underwent successful balloon angioplasty of the ramus intermedius branch of the coronary artery. She is free of any chest pain this point. She has no specific complaints. On the cardiac standpoint, the patient has mild disease involving LAD, mild disease involving the circumflex, and the plan is to proceed with medical treatment with dual antiplatelet therapy and risk factor modification. Objective - Vital Signs Vital signs: Vital Signs Temp 96.7 F L 08/03/16 09:30 Pulse 81 08/03/16 12:45 Resp 18 08/03/16 12:45 BP 172/72 08/03/16 12:45 Pulse Ox 97 08/03/16 12:45 Intake & Output 08/02/16 08/03/16 08/03/16 18:59 06:59 18:59 Intake Total 380 480 Balance 380 480 Weight 68.492 kg 68.3 kg Intake: Oral 380 480 Other: # Voids 1 1 - Exam The patient appeared well nourished and normally developed. Vital signs as documented. Head exam is unremarkable. No scleral icterus or corneal arcus noted. Neck is without jugular venous distension, thyromegaly, or carotid bruits. Carotid upstrokes are brisk bilaterally. Lungs are clear to auscultation and percussion. Cardiac exam reveals the PMI to be normally sized and situated. Rhythm is regular. First and second heart sounds normal. No murmurs, rubs or gallops. Abdominal exam reveals normal bowel sounds, no masses , no organomegaly and no aortic enlargement. Extremities are nonedematous and both femoral and pedal pulses are normal. The patient has an AV fistula in the left upper extremity which is quite functional at this point - Labs CBC & Chem 7: 08/03/16 07:22 08/03/16 07:22 Labs: Abnormal Lab Results - Last 24 Hours (Table) 08/02/16 08/02/16 08/03/16 Range/Units 16:30 20:50 06:19 WBC (3.8-10.6) k/uL RBC (3.80-5.40) m/uL Hgb (11.4-16.0) gm/dL MCHC (31.0-37.0) g/dL RDW (11.5-15.5) % Neutrophils # (1.3-7.7) k/uL Lymphocytes # (1.0-4.8) k/uL APTT (22.0-30.0) sec Sodium (137-145) mmol/L Potassium (3.5-5.1) mmol/L Carbon Dioxide (22-30) mmol/L BUN (7-17) mg/dL Creatinine (0.52-1.04) mg/dL Glucose (74-99) mg/dL POC Glucose (mg/dL) 166 H 182 H 278 H (75-99) mg/dL 08/03/16 08/03/16 08/03/16 Range/Units 07:22 07:22 10:55 WBC 14.6 H (3.8-10.6) k/uL RBC 3.57 L (3.80-5.40) m/uL Hgb 10.8 L (11.4-16.0) gm/dL MCHC 30.5 L (31.0-37.0) g/dL RDW 20.1 H (11.5-15.5) % Neutrophils # 13.3 H (1.3-7.7) k/uL Lymphocytes # 0.7 L (1.0-4.8) k/uL APTT 91.6 H (22.0-30.0) sec Sodium 134 L (137-145) mmol/L Potassium 5.5 H (3.5-5.1) mmol/L Carbon Dioxide 20 L (22-30) mmol/L BUN 46 H (7-17) mg/dL Creatinine 5.44 H* (0.52-1.04) mg/dL Glucose 383 H (74-99) mg/dL POC Glucose (mg/dL) (75-99) mg/dL 08/03/16 08/03/16 Range/Units 12:01 13:07 WBC (3.8-10.6) k/uL RBC (3.80-5.40) m/uL Hgb (11.4-16.0) gm/dL MCHC (31.0-37.0) g/dL RDW (11.5-15.5) % Neutrophils # (1.3-7.7) k/uL Lymphocytes # (1.0-4.8) k/uL APTT 48.3 H (22.0-30.0) sec Sodium (137-145) mmol/L Potassium (3.5-5.1) mmol/L Carbon Dioxide (22-30) mmol/L BUN (7-17) mg/dL Creatinine (0.52-1.04) mg/dL Glucose (74-99) mg/dL POC Glucose (mg/dL) 444 H (75-99) mg/dL Assessment and Plan Plan: Assessment 1 acute dyspnea/hypoxia history failure due to flash pulmonary edema probably the setting of hypertensive urgency and CHF with diastolic failure. 2 coronary artery disease with recent non-ST segment elevation myocardial infarction, the patient underwent cardiac catheterization and the results were noted. 3 end-stage renal disease on hemodialysis as mentioned above 4 diabetes mellitus with poorly controlled blood sugars 5 hyperkalemia 6 hypertension 7 hyperlipidemia 8 CVA/TIA 9 GERD 10 previous history of GI bleed 11 osteoarthritis 12. Peripheral Vascular disease 13 diverticulosis Plan Monitor this patient for another 24 hours in the hospital. Perform dialysis tomorrow. There will antiplatelet therapy. Risk factor modification regarding CAD. Tighter blood sugar and blood pressure control.
[2016-08-03 17:49] LABS: Glucose,Whole Blood 462 mg/dL (75-99)
--- NOTE | 2016-08-03 18:19 | P.PN ---
Subjective 56-year-old female with history of CAD ESRD and hemodialysis hypertension dyslipidemia comes in to the hospital with complaints of sudden onset difficulty breathing. Patient has had a similar episode 2 weeks prior where she woke up at 2 AM in the morning with sudden onset difficulty breathing. Patient does state to have significant snoring however has never been diagnosed with sleep apnea. At that time patient was noted to have some EKG changes with a troponin elevation however patient wanted to delay her heart a catheterization which was supposed to be today. Patient had a similar episode where she woke up again the middle of the night with complaints of difficulty breathing was diaphoretic apparently and came in to the hospital was noted to have a systolic blood pressure around [id number] Patient was noted to be in heart failure with physical exam findings Patient was started on nitroglycerin drip. During my evaluation patient was undergoing hemodialysis with the left upper arm fistula Patient has not missed any of her dialysis sessions. Patient states her blood pressure has been erratic in the recent times. EKG is suboptimal that was done in the emergency room at the time of my evaluation states that she denies having any headaches blurry vision nausea vomiting abdominal pain urinary urgency frequency or lower extremity edema. 08/02/16 Improved on 2 l o2 denies cp, n/v, abdominal pain, diarrhea, KATT reported today 08/03/16 seen after cardiac cath states to be doing well no groin pain is reported laying flat no fevers, chills, n/v, KATT at this time Objective - Vital Signs Vital signs: Vital Signs Temp 96.7 F L 08/03/16 09:30 Pulse 85 08/03/16 17:25 Resp 18 08/03/16 17:25 BP 155/70 08/03/16 17:25 Pulse Ox 99 08/03/16 17:25 Intake & Output 08/02/16 08/03/16 08/03/16 18:59 06:59 18:59 Intake Total 380 480 Balance 380 480 Weight 68.492 kg 68.3 kg Intake: Oral 380 480 Other: # Voids 1 1 - Constitutional General appearance: Present: no acute distress - EENT Eyes: Present: PERRLA - Neck Neck: Present: normal ROM - Respiratory Respiratory: bilateral: CTA, negative: dullness, rales, rhonchi - Cardiovascular Rhythm: regular Heart sounds: normal: S1, S2 Abnormal Heart Sounds: Present: systolic murmur - Gastrointestinal General gastrointestinal: Present: normal bowel sounds, soft. Absent: organomegaly - Integumentary Integumentary: Present: normal (left upper arm thril consistent with fistula) - Neurologic Neurologic: Present: CNII-XII intact. Absent: focal deficits - Labs CBC & Chem 7: 08/03/16 07:22 08/03/16 07:22 Labs: Abnormal Lab Results - Last 24 Hours (Table) 08/02/16 08/03/16 08/03/16 Range/Units 20:50 06:19 07:22 WBC 14.6 H (3.8-10.6) k/uL RBC 3.57 L (3.80-5.40) m/uL Hgb 10.8 L (11.4-16.0) gm/dL MCHC 30.5 L (31.0-37.0) g/dL RDW 20.1 H (11.5-15.5) % Neutrophils # 13.3 H (1.3-7.7) k/uL Lymphocytes # 0.7 L (1.0-4.8) k/uL APTT (22.0-30.0) sec Sodium (137-145) mmol/L Potassium (3.5-5.1) mmol/L Carbon Dioxide (22-30) mmol/L BUN (7-17) mg/dL Creatinine (0.52-1.04) mg/dL Glucose (74-99) mg/dL POC Glucose (mg/dL) 182 H 278 H (75-99) mg/dL 08/03/16 08/03/16 08/03/16 Range/Units 07:22 10:55 12:01 WBC (3.8-10.6) k/uL RBC (3.80-5.40) m/uL Hgb (11.4-16.0) gm/dL MCHC (31.0-37.0) g/dL RDW (11.5-15.5) % Neutrophils # (1.3-7.7) k/uL Lymphocytes # (1.0-4.8) k/uL APTT 91.6 H (22.0-30.0) sec Sodium 134 L (137-145) mmol/L Potassium 5.5 H (3.5-5.1) mmol/L Carbon Dioxide 20 L (22-30) mmol/L BUN 46 H (7-17) mg/dL Creatinine 5.44 H* (0.52-1.04) mg/dL Glucose 383 H (74-99) mg/dL POC Glucose (mg/dL) 444 H (75-99) mg/dL 08/03/16 08/03/16 08/03/16 Range/Units 13:07 15:05 17:16 WBC (3.8-10.6) k/uL RBC (3.80-5.40) m/uL Hgb (11.4-16.0) gm/dL MCHC (31.0-37.0) g/dL RDW (11.5-15.5) % Neutrophils # (1.3-7.7) k/uL Lymphocytes # (1.0-4.8) k/uL APTT 48.3 H 36.1 H (22.0-30.0) sec Sodium (137-145) mmol/L Potassium (3.5-5.1) mmol/L Carbon Dioxide (22-30) mmol/L BUN (7-17) mg/dL Creatinine (0.52-1.04) mg/dL Glucose (74-99) mg/dL POC Glucose (mg/dL) 462 H (75-99) mg/dL Assessment and Plan Plan: #1 acute exacerbation of heart failure that is diastolic in nature #2 indeterminant troponin leak with underlying CAD #3 ESRD and hemodialysis #4 anemia of ESRD #5 hyperkalemia #6 hypertension that is erratic #7 suspected underlying sleep apnea #8 acute hypoxic respiratory failure secondary to an acute exacerbation of congestive heart failure #9 accelerated hypertension likely causing #8 #10 diabetes mellitus type 2 with uncontrolled hyperglycemia on admission Plan vitals stable improved s/p cath and angioplasty to ramus intermedius STAGE RIGGER RCA vascular checks HD ree? Do suspect some underlying sleep apnea once patient is off oxygen will perform a nocturnal study to pursue need for O2 at night if not patient will be referred to Dr. Ramirez for sleep study thereafter
[2016-08-03] MEDS ORDERED: INSULIN REGULAR 100 UNIT/ML VIAL IV ONE (19:00)
[2016-08-03] MEDS: INSULIN GLARGINE 100 UNIT/ML 10 ML VIAL SQ SCH (19:54)
[2016-08-03] MEDS: MAG HYDROX/AL HYDROX/SIMETH 30 ML CUP PO PRN (21:19)
[2016-08-03] MEDS: ALPRAZolam 0.25 MG TAB PO PRN (21:19)
[2016-08-03 21:20] LABS: Glucose,Whole Blood 503 mg/dL (75-99)
[2016-08-03 21:20] LABS: Glucose,Whole Blood 519 mg/dL (75-99)
[2016-08-03] MEDS: ATORVASTATIN 40 MG TAB PO SCH (21:20)
[2016-08-03] MEDS ORDERED: INSULIN LISPRO (humaLOG) 300 UNIT/3 ML VIAL SQ ONE (22:30)
[2016-08-04 00:04] LABS: Glucose,Whole Blood 387 mg/dL (75-99)
[2016-08-04] MEDS: MAG HYDROX/AL HYDROX/SIMETH 30 ML CUP PO PRN (05:01)
[2016-08-04 06:25] LABS: Glucose,Whole Blood 180 mg/dL (75-99)
[2016-08-04 06:44] LABS: Anisocytosis Moderate; Basophils % (A) 0 %; CH 29.9; CHCM 30.3; Eosinophils # (A) 0.1 k/uL (0-0.7); Eosinophils % (A) 1 %; HCT 32.1 % (34.0-46.0); HDW 2.91; HGB 9.6 gm/dL (11.4-16.0); Hypochromasia Marked; Luc # (Auto) 0.17; Luc % (Auto) 2; Lymphocytes % (A) 13 %; MCH 29.7 pg (25.0-35.0); MCHC 29.9 g/dL (31.0-37.0); MCV 99.3 fL (80.0-100.0); Macrocytosis Moderate; Mean Platelet Volume 7.4; Monocytes # (A) 0.6 k/uL (0-1.0); Monocytes % (A) 8 %; Neutrophils # (A) 6.2 k/uL (1.3-7.7); Neutrophils % (A) 77 %; RBC 3.23 m/uL (3.80-5.40); RDW 20.6 % (11.5-15.5); WBC 8.1 k/uL (3.8-10.6); WBC (Perox) 8.32
[2016-08-04] MEDS: CALCIUM ACETATE 667 MG CAP PO SCH ×2 (07:16→14:07)
[2016-08-04] MEDS: SEVELAMER 800 MG TAB PO SCH ×2 (07:16→14:07)
[2016-08-04] MEDS: INSULIN LISPRO (humaLOG) 300 UNIT/3 ML VIAL SQ SCH ×4 (07:17→14:03)
[2016-08-04 07:32] LABS: Calcium 9.5 mg/dL (8.4-10.2); Potassium 5.3 mmol/L (3.5-5.1); Total Bilirubin 0.5 mg/dL (0.2-1.3)
[2016-08-04 08:28] VITALS: RESP 16; TEMP 97.8
[2016-08-04] MEDS: ASPIRIN 325 MG TAB PO SCH (08:30)
[2016-08-04] MEDS: CLOPIDOGREL 75 MG TAB PO SCH (08:30)
--- NOTE | 2016-08-04 08:43 | P.PN ---
Subjective Patient is seen in follow-up for end-stage renal disease. She is maintained on hemodialysis on a Thursday schedule via left upper extremity AV graft. Patient presented with dyspnea and fluid overload. She underwent hemodialysis Thursday and Thursday. Dyspnea is significantly improved. Denies chest pain. No vomiting or diarrhea. Hemodynamically stable. She underwent cardiac catheterization on August 03 and underwent balloon angioplasty of the ramus intermedius coronary artery. Vital signs are stable. General: The patient appeared well nourished and normally developed. HEENT: Head exam is unremarkable. Neck is without jugular venous distension. LUNGS: Lungs are clear to auscultation and percussion. Breath sounds decreased. HEART: Rate and Rhythm are regular. First and second heart sounds normal. No murmurs, rubs or gallops. ABDOMEN: Abdominal exam reveals normal bowel sounds. Non-tender and non- distended. No evidence of peritonitis. EXTREMITITES: No clubbing, cyanosis, or edema. Objective - Vital Signs Vital signs: Vital Signs Temp 97.8 F 08/04/16 08:00 Pulse 79 08/04/16 08:00 Resp 16 08/04/16 08:00 BP 154/96 08/04/16 08:00 Pulse Ox 96 08/04/16 08:00 Intake & Output 08/03/16 08/04/16 08/04/16 18:59 06:59 18:59 Intake Total 200 260 Balance 200 260 Weight 68.9 kg Intake: IV 60 Sodium Chloride 0.9% 1, 60 000 ml @ 100 mls/hr IV . Q10H [facility] Rx#:[id number] Intake, IV Titration 200 Amount Sodium Chloride 0.9% 1, 200 000 ml @ 100 mls/hr IV . Q10H [facility] Rx#:[id number] Oral 200 Other: # Voids 1 - Labs CBC & Chem 7: 08/04/16 05:48 08/04/16 05:48 Labs: Abnormal Lab Results - Last 24 Hours (Table) 08/03/16 08/03/16 08/03/16 Range/Units 10:55 12:01 13:07 RBC (3.80-5.40) m/uL Hgb (11.4-16.0) gm/dL Hct (34.0-46.0) % MCHC (31.0-37.0) g/dL RDW (11.5-15.5) % APTT 91.6 H 48.3 H (22.0-30.0) sec Potassium (3.5-5.1) mmol/L Carbon Dioxide (22-30) mmol/L BUN (7-17) mg/dL Creatinine (0.52-1.04) mg/dL Glucose (74-99) mg/dL POC Glucose (mg/dL) 444 H (75-99) mg/dL AST (14-36) U/L Total Protein (6.3-8.2) g/dL Albumin (3.5-5.0) g/dL 08/03/16 08/03/16 08/03/16 Range/Units 15:05 17:16 21:16 RBC (3.80-5.40) m/uL Hgb (11.4-16.0) gm/dL Hct (34.0-46.0) % MCHC (31.0-37.0) g/dL RDW (11.5-15.5) % APTT 36.1 H (22.0-30.0) sec Potassium (3.5-5.1) mmol/L Carbon Dioxide (22-30) mmol/L BUN (7-17) mg/dL Creatinine (0.52-1.04) mg/dL Glucose (74-99) mg/dL POC Glucose (mg/dL) 462 H 519 H (75-99) mg/dL AST (14-36) U/L Total Protein (6.3-8.2) g/dL Albumin (3.5-5.0) g/dL 08/03/16 08/04/16 08/04/16 Range/Units 21:19 00:03 05:48 RBC (3.80-5.40) m/uL Hgb (11.4-16.0) gm/dL Hct (34.0-46.0) % MCHC (31.0-37.0) g/dL RDW (11.5-15.5) % APTT (22.0-30.0) sec Potassium 5.3 H (3.5-5.1) mmol/L Carbon Dioxide 20 L (22-30) mmol/L BUN 75 H (7-17) mg/dL Creatinine 7.77 H* (0.52-1.04) mg/dL Glucose 155 H (74-99) mg/dL POC Glucose (mg/dL) 503 H 387 H (75-99) mg/dL AST 12 L (14-36) U/L Total Protein 6.0 L (6.3-8.2) g/dL Albumin 3.4 L (3.5-5.0) g/dL 08/04/16 08/04/16 Range/Units 05:48 06:21 RBC 3.23 L (3.80-5.40) m/uL Hgb 9.6 L (11.4-16.0) gm/dL Hct 32.1 L (34.0-46.0) % MCHC 29.9 L (31.0-37.0) g/dL RDW 20.6 H (11.5-15.5) % APTT (22.0-30.0) sec Potassium (3.5-5.1) mmol/L Carbon Dioxide (22-30) mmol/L BUN (7-17) mg/dL Creatinine (0.52-1.04) mg/dL Glucose (74-99) mg/dL POC Glucose (mg/dL) 180 H (75-99) mg/dL AST (14-36) U/L Total Protein (6.3-8.2) g/dL Albumin (3.5-5.0) g/dL Assessment and Plan Plan: Assessment: #1. End-stage renal disease maintained on hemodialysis on a Thursday schedule via left upper extremity AV graft. #2. Volume overload. Improved postdialysis. #3. Hypertension with chronic kidney disease. Controlled. #4. Anemia of chronic kidney disease. Hemoglobin at goal. #5. Chronic kidney disease mineral bone disease. #6. Insulin-dependent diabetes mellitus. #7. History of coronary artery disease status post stent placement on August 03. Plan: Hemodialysis today with goal 2-3 L ultrafiltration. Continue PhosLo 3 times daily with meals. Maintain Renvela 800 mg 3 times daily with meals. Cardiology following. Potential discharge today after dialysis.
[2016-08-04] MEDS ORDERED: FAMOTIDINE 20 MG TAB PO SCH (09:00)
[2016-08-04 10:48] LABS: Hemoglobin A1C 8.6 % (4.2-6.1)
[2016-08-04 11:24] LABS: Glucose,Whole Blood 128 mg/dL (75-99)
--- NOTE | 2016-08-04 12:00 | P.PN ---
Subjective Principal diagnosis: Acute pulmonary edema, hypertensive urgency, and congestive heart failure. 56-year-old -[place] female patient with known history of coronary artery disease with a recent myocardial infarction who was supposed to come in today and undergo a cardiac catheterization an elective basis with Dr Fonseca from cardiology. 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 The patient woke up at around 2 AM this morning having trouble breathing and she was having increased shortness of breath and for that reason she was brought into the hospital. EKG was noted and there is no acute ST segment elevation or depression. The patient was quite hypertensive with a systolic blood pressure in the 180-190 range. The patient was in acute pulmonary edema. The patient was placed on a BiPAP for respiratory support. The patient was also placed on nitroglycerin drip which improved her blood pressure control. At the time of my evaluation, the patient was undergoing dialysis with the goal of 3000 mL of ultrafiltration. Apparently plans are being made to dilate this patient tomorrow. No cardiac catheterization will be done today. The patient is fairly of any chest pain. No headache. No focal neurological deficits. No nausea. No vomiting no vision changes. No seizure activity. No other complaints otherwise for now. She has a preserved LV function based on a previous echocardiogram. Cardiology is on the case. On 08/02/2016 the patient is being seen in follow-up. The patient is feeling much better and she is of oxygen. She'll be having another session of dialysis this afternoon. Note that her dialysis was done yesterday and total amount of liters of fluid was removed and the patient had symptomatic relief. No cough. No chest pain. No other complaints otherwise for now. On 08/03/2016, the patient is doing well. The patient underwent dialysis yesterday. No respiratory distress. This morning the patient was taken to cardiac catheterization and the patient underwent successful balloon angioplasty of the ramus intermedius branch of the coronary artery. She is free of any chest pain this point. She has no specific complaints. On the cardiac standpoint, the patient has mild disease involving LAD, mild disease involving the circumflex, and the plan is to proceed with medical treatment with dual antiplatelet therapy and risk factor modification. On 08/04/2016, patient is doing well, she is presently undergoing dialysis. She is in no form of distress. No cough no wheezing no shortness of breath no chest pain. Objective - Vital Signs Vital signs: Vital Signs Temp 97.8 F 08/04/16 08:00 Pulse 79 08/04/16 08:00 Resp 16 08/04/16 08:00 BP 154/96 08/04/16 08:00 Pulse Ox 96 08/04/16 09:40 Intake & Output 08/03/16 08/04/16 08/04/16 18:59 06:59 18:59 Intake Total 200 260 180 Balance 200 260 180 Weight 68.9 kg Intake: IV 60 Sodium Chloride 0.9% 1, 60 000 ml @ 100 mls/hr IV . Q10H [facility] Rx#:[id number] Intake, IV Titration 200 Amount Sodium Chloride 0.9% 1, 200 000 ml @ 100 mls/hr IV . Q10H [facility] Rx#:[id number] Oral 200 180 Other: # Voids 1 - Exam The patient appeared well nourished and normally developed. Vital signs as documented. Head exam is unremarkable. No scleral icterus or corneal arcus noted. Neck is without jugular venous distension, thyromegaly, or carotid bruits. Carotid upstrokes are brisk bilaterally. Lungs are clear to auscultation and percussion. Cardiac exam reveals the PMI to be normally sized and situated. Rhythm is regular. First and second heart sounds normal. No murmurs, rubs or gallops. Abdominal exam reveals normal bowel sounds, no masses , no organomegaly and no aortic enlargement. Extremities are nonedematous and both femoral and pedal pulses are normal. The patient has an AV fistula in the left upper extremity which is quite functional at this point - Labs CBC & Chem 7: 08/04/16 05:48 08/04/16 05:48 Labs: Abnormal Lab Results - Last 24 Hours (Table) 08/03/16 08/03/16 08/03/16 Range/Units 12:01 13:07 15:05 RBC (3.80-5.40) m/uL Hgb (11.4-16.0) gm/dL Hct (34.0-46.0) % MCHC (31.0-37.0) g/dL RDW (11.5-15.5) % APTT 48.3 H 36.1 H (22.0-30.0) sec Potassium (3.5-5.1) mmol/L Carbon Dioxide (22-30) mmol/L BUN (7-17) mg/dL Creatinine (0.52-1.04) mg/dL Glucose (74-99) mg/dL POC Glucose (mg/dL) 444 H (75-99) mg/dL AST (14-36) U/L Total Protein (6.3-8.2) g/dL Albumin (3.5-5.0) g/dL 08/03/16 08/03/16 08/03/16 Range/Units 17:16 21:16 21:19 RBC (3.80-5.40) m/uL Hgb (11.4-16.0) gm/dL Hct (34.0-46.0) % MCHC (31.0-37.0) g/dL RDW (11.5-15.5) % APTT (22.0-30.0) sec Potassium (3.5-5.1) mmol/L Carbon Dioxide (22-30) mmol/L BUN (7-17) mg/dL Creatinine (0.52-1.04) mg/dL Glucose (74-99) mg/dL POC Glucose (mg/dL) 462 H 519 H 503 H (75-99) mg/dL AST (14-36) U/L Total Protein (6.3-8.2) g/dL Albumin (3.5-5.0) g/dL 08/04/16 08/04/16 08/04/16 Range/Units 00:03 05:48 05:48 RBC 3.23 L (3.80-5.40) m/uL Hgb 9.6 L (11.4-16.0) gm/dL Hct 32.1 L (34.0-46.0) % MCHC 29.9 L (31.0-37.0) g/dL RDW 20.6 H (11.5-15.5) % APTT (22.0-30.0) sec Potassium 5.3 H (3.5-5.1) mmol/L Carbon Dioxide 20 L (22-30) mmol/L BUN 75 H (7-17) mg/dL Creatinine 7.77 H* (0.52-1.04) mg/dL Glucose 155 H (74-99) mg/dL POC Glucose (mg/dL) 387 H (75-99) mg/dL AST 12 L (14-36) U/L Total Protein 6.0 L (6.3-8.2) g/dL Albumin 3.4 L (3.5-5.0) g/dL 08/04/16 08/04/16 Range/Units 06:21 11:22 RBC (3.80-5.40) m/uL Hgb (11.4-16.0) gm/dL Hct (34.0-46.0) % MCHC (31.0-37.0) g/dL RDW (11.5-15.5) % APTT (22.0-30.0) sec Potassium (3.5-5.1) mmol/L Carbon Dioxide (22-30) mmol/L BUN (7-17) mg/dL Creatinine (0.52-1.04) mg/dL Glucose (74-99) mg/dL POC Glucose (mg/dL) 180 H 128 H (75-99) mg/dL AST (14-36) U/L Total Protein (6.3-8.2) g/dL Albumin (3.5-5.0) g/dL Assessment and Plan Plan: 1 acute dyspnea/hypoxia history failure due to flash pulmonary edema probably the setting of hypertensive urgency and CHF with diastolic failure. 2 coronary artery disease with recent non-ST segment elevation myocardial infarction, the patient underwent cardiac catheterization and the results were noted. 3 end-stage renal disease on hemodialysis as mentioned above 4 diabetes mellitus with poorly controlled blood sugars 5 hyperkalemia 6 hypertension 7 hyperlipidemia 8 CVA/TIA 9 GERD 10 previous history of GI bleed 11 osteoarthritis 12. Peripheral Vascular disease 13 diverticulosis Recommendation: I agree with the present treatment plan, not much to be added from the pulmonary perspective, we'll continue to follow on an as-needed basis. Time with Patient: Less than 30
[2016-08-04 12:59] LABS: Glucose,Whole Blood 116 mg/dL (75-99)
--- NOTE | 2016-08-04 13:29 | P.PN ---
Subjective Principal diagnosis: Congestive heart failure and non-STEMI This is a 56-year-old -[place] female who presented to the hospital in acute pulmonary edema, hypertensive urgency, ruled in for non-Q wave myocardial infarction. She is also end-stage renal disease on hemodialysis. Patient was taken to the cardiac catheterization lab after her heart failure had resolved, and she underwent an attempted angioplasty of the right coronary artery with successful balloon angioplasty on the ramus intermediate coronary artery. Patient was seen and examined this morning, currently receiving dialysis. Feels well overall. Denies any chest pain and breathing is stable. Blood pressure this morning 136/60 with a heart rate in the 70s. 96% on room air. Or 9.6, potassium 5.3, BUN 75, creatinine 7.7. patient will be discharged home today, follow-up appointment will be made with Dr. Calixto in the office post discharge. Objective - Vital Signs Vital signs: Vital Signs Temp 97.8 F 08/04/16 08:00 Pulse 78 08/04/16 11:59 Resp 16 08/04/16 11:59 BP 136/64 08/04/16 11:59 Pulse Ox 96 08/04/16 09:40 Intake & Output 08/03/16 08/04/16 08/04/16 18:59 06:59 18:59 Intake Total 200 260 180 Balance 200 260 180 Weight 68.9 kg Intake: IV 60 Sodium Chloride 0.9% 1, 60 000 ml @ 100 mls/hr IV . Q10H [facility] Rx#:[id number] Intake, IV Titration 200 Amount Sodium Chloride 0.9% 1, 200 000 ml @ 100 mls/hr IV . Q10H [facility] Rx#:[id number] Oral 200 180 Other: # Voids 1 - Exam PHYSICAL EXAMINATION: HEENT: Head is atraumatic, normocephalic. Pupils equal, round. Neck is supple. There is no elevated jugular venous pressure. HEART EXAMINATION: Heart S1, S2 normal. No murmur or gallop heard. CHEST EXAMINATION: Lungs are clear to auscultation and precussion. No chest wall tenderness is noted on palpation or with deep breathing. ABDOMEN: Soft, nontender. Bowel sounds are heard. No organomegaly noted. Right groin soft, no evidence of any hematoma. EXTREMITIES: 2+ peripheral pulses with no evidence of peripheral edema and no calf tenderness noted. NEUROLOGIC patient is awake, alert and oriented -3. . - Labs CBC & Chem 7: 08/04/16 05:48 08/04/16 05:48 Labs: Abnormal Lab Results - Last 24 Hours (Table) 08/03/16 08/03/16 08/03/16 Range/Units 13:07 15:05 17:16 RBC (3.80-5.40) m/uL Hgb (11.4-16.0) gm/dL Hct (34.0-46.0) % MCHC (31.0-37.0) g/dL RDW (11.5-15.5) % APTT 48.3 H 36.1 H (22.0-30.0) sec Potassium (3.5-5.1) mmol/L Carbon Dioxide (22-30) mmol/L BUN (7-17) mg/dL Creatinine (0.52-1.04) mg/dL Glucose (74-99) mg/dL POC Glucose (mg/dL) 462 H (75-99) mg/dL Hemoglobin A1c (4.2-6.1) % AST (14-36) U/L Total Protein (6.3-8.2) g/dL Albumin (3.5-5.0) g/dL 08/03/16 08/03/16 08/04/16 Range/Units 21:16 21:19 00:03 RBC (3.80-5.40) m/uL Hgb (11.4-16.0) gm/dL Hct (34.0-46.0) % MCHC (31.0-37.0) g/dL RDW (11.5-15.5) % APTT (22.0-30.0) sec Potassium (3.5-5.1) mmol/L Carbon Dioxide (22-30) mmol/L BUN (7-17) mg/dL Creatinine (0.52-1.04) mg/dL Glucose (74-99) mg/dL POC Glucose (mg/dL) 519 H 503 H 387 H (75-99) mg/dL Hemoglobin A1c (4.2-6.1) % AST (14-36) U/L Total Protein (6.3-8.2) g/dL Albumin (3.5-5.0) g/dL 08/04/16 08/04/16 08/04/16 Range/Units 05:48 05:48 05:48 RBC 3.23 L (3.80-5.40) m/uL Hgb 9.6 L (11.4-16.0) gm/dL Hct 32.1 L (34.0-46.0) % MCHC 29.9 L (31.0-37.0) g/dL RDW 20.6 H (11.5-15.5) % APTT (22.0-30.0) sec Potassium 5.3 H (3.5-5.1) mmol/L Carbon Dioxide 20 L (22-30) mmol/L BUN 75 H (7-17) mg/dL Creatinine 7.77 H* (0.52-1.04) mg/dL Glucose 155 H (74-99) mg/dL POC Glucose (mg/dL) (75-99) mg/dL Hemoglobin A1c 8.6 H (4.2-6.1) % AST 12 L (14-36) U/L Total Protein 6.0 L (6.3-8.2) g/dL Albumin 3.4 L (3.5-5.0) g/dL 08/04/16 08/04/16 08/04/16 Range/Units 06:21 11:22 12:38 RBC (3.80-5.40) m/uL Hgb (11.4-16.0) gm/dL Hct (34.0-46.0) % MCHC (31.0-37.0) g/dL RDW (11.5-15.5) % APTT (22.0-30.0) sec Potassium (3.5-5.1) mmol/L Carbon Dioxide (22-30) mmol/L BUN (7-17) mg/dL Creatinine (0.52-1.04) mg/dL Glucose (74-99) mg/dL POC Glucose (mg/dL) 180 H 128 H 116 H (75-99) mg/dL Hemoglobin A1c (4.2-6.1) % AST (14-36) U/L Total Protein (6.3-8.2) g/dL Albumin (3.5-5.0) g/dL Assessment and Plan (1) Pulmonary edema Status: Acute (2) ESRD (end stage renal disease) Status: Acute (3) Elevated troponin Status: Acute (4) H/O: CVA (cerebrovascular accident) Status: Acute (5) HTN (hypertension) Status: Acute (6) Renal failure Status: Acute (7) S/P right coronary artery (RCA) stent placement Status: Acute (8) Systolic congestive heart failure Status: Acute Plan: Patient was taken to the cardiac catheterization lab, she underwent successful balloon angioplasty of the ramus intermediate branch with an attempted angioplasty of the right coronary artery. Currently receiving dialysis at the time of our examination today. She should be able to be discharged home later today to follow-up with Dr. Calixto in the office in one week. We'll continue current medications along with dual antiplatelet therapy in the form of Plavix and aspirin. DNP note has been reviewed, I agree with a documented findings and plan of care. Patient was seen and examined.
[2016-08-04] MEDS ORDERED: GELATIN SPONGE,ABSORB (SMALL) 1 EACH SPONGE ONE (13:45)
[2016-08-04] MEDS ORDERED: DOCUSATE 100 MG CAP PO STA (14:01)
[2016-08-04 14:06] VITALS: BP 166/70; PULSE 87
[2016-08-04] MEDS: FUROSEMIDE 80 MG TAB PO SCH (14:06)
[2016-08-04] MEDS: amLODIPine 2.5 MG TAB PO SCH (14:06)
[2016-08-04] MEDS: METOPROLOL TARTRATE 50 MG TAB PO SCH (14:07)
--- NOTE | 2016-08-04 18:11 | P.DS ---
Providers Date of admission: 08/01/16 06:32 Attending physician: Tiana Cornell Consults: 08/01/16 06:32 Consult Physician Stat Consulting Provider: Thomas Damon Consult Reason/Comments: Dialysis Patient Do you want consulting provider notified?: Yes 08/01/16 14:41 Consult Physician Urgent Consulting Provider: Chirag Calixto Consult Reason/Comments: CHF Do you want consulting provider notified?: Already Contacted 08/02/16 12:52 Consult Physician Stat Consulting Provider: Rolando Ramirez Consult Reason/Comments: resp failure Do you want consulting provider notified?: Already Contacted 08/03/16 08:49 Consult Physician Routine Consulting Provider: [facility] Consult Reason/Comments: Post Interventional patient Do you want consulting provider notified?: Already Contacted Primary care physician: Jossie Bartlett [facility] Course: 56-year-old female with history of CAD ESRD and hemodialysis hypertension dyslipidemia comes in to the hospital with complaints of sudden onset difficulty breathing. Patient has had a similar episode 2 weeks prior where she woke up at 2 AM in the morning with sudden onset difficulty breathing. Patient does state to have significant snoring however has never been diagnosed with sleep apnea. At that time patient was noted to have some EKG changes with a troponin elevation however patient wanted to delay her heart a catheterization which was supposed to be today. Patient had a similar episode where she woke up again the middle of the night with complaints of difficulty breathing was diaphoretic apparently and came in to the hospital was noted to have a systolic blood pressure around [id number] Patient was noted to be in heart failure with physical exam findings Patient was started on nitroglycerin drip. During my evaluation patient was undergoing hemodialysis with the left upper arm fistula Patient has not missed any of her dialysis sessions. Patient states her blood pressure has been erratic in the recent times. EKG is suboptimal that was done in the emergency room at the time of my evaluation states that she denies having any headaches blurry vision nausea vomiting abdominal pain urinary urgency frequency or lower extremity edema. 08/02/16 Improved on 2 l o2 denies cp, n/v, abdominal pain, diarrhea, KATT reported today 08/03/16 seen after cardiac cath states to be doing well no groin pain is reported laying flat no fevers, chills, n/v, KATT at this time - Constitutional General appearance: Present: no acute distress - EENT Eyes: Present: PERRLA - Neck Neck: Present: normal ROM - Respiratory Respiratory: bilateral: CTA, negative: dullness, rales, rhonchi - Cardiovascular Rhythm: regular Heart sounds: normal: S1, S2 Abnormal Heart Sounds: Present: systolic murmur - Gastrointestinal General gastrointestinal: Present: normal bowel sounds, soft. Absent: organomegaly - Integumentary Integumentary: Present: normal (left upper arm thril consistent with fistula) - Neurologic Neurologic: Present: CNII-XII intact. Absent: focal deficits Assessment and Plan Plan: #1 acute exacerbation of heart failure that is diastolic in nature #2 indeterminant troponin leak with underlying CAD #3 ESRD and hemodialysis #4 anemia of ESRD #5 hyperkalemia #6 hypertension, stable on dc. #7 suspected underlying sleep apnea #8 acute hypoxic respiratory failure secondary to an acute exacerbation of congestive heart failure #9 accelerated hypertension likely causing #8 on admission #10 diabetes mellitus type 2 with uncontrolled hyperglycemia on admission improved s/p cath and angioplasty to ramus intermedius RESEARCH RECRUITER RCA HD on the day of discharge Do suspect some underlying sleep apnea once patient is off oxygen will perform a nocturnal study to pursue need for O2 at night if not patient will be referred to Dr. Ramirez for sleep study thereafter Patient Condition at Discharge: Poor Plan - Discharge Summary New Discharge Prescriptions: Sevelamer [Renvela] 800 mg PO TID-W/MEALS #90 tab Discharge Medication List Furosemide [Lasix] 80 mg PO BID 09/17/13 [History] Albuterol Inhaler [Ventolin Hfa Inhaler] 1 puff INHALATION RT-BID PRN 02/12/16 [ History] Insulin Aspart [NovoLOG Flexpen] 12 unit SQ AC-BRKFST 02/12/16 [History] Clopidogrel [Plavix] 75 mg PO DAILY tab 02/16/16 [Rx] Atorvastatin [Lipitor] 40 mg PO HS 07/16/16 [History] Insulin Aspart [NovoLOG Flexpen] 14 units SQ AC-LUNCH 07/16/16 [History] Insulin Aspart [NovoLOG Flexpen] 16 units SQ AC-SUPPER 07/16/16 [History] Insulin Glargine,Hum.rec.anlog [Lantus Solostar] 38 unit SQ HS 07/16/16 [History ] Metoprolol Tartrate [Lopressor] 50 mg PO BID 07/16/16 [History] ALPRAZolam [Xanax] 0.25 mg PO HS PRN 07/29/16 [History] Calcium Acetate [PhosLo] 667 mg PO BID 08/01/16 [History] amLODIPine [Norvasc] 2.5 mg PO DAILY 08/01/16 [History] Famotidine [Pepcid] 20 mg PO DAILY PRN 08/04/16 [History] Sevelamer [Renvela] 800 mg PO TID-W/MEALS #90 tab 08/04/16 [Rx] Follow up Appointment(s)/Referral(s): Ramiro Sethi MD [Primary Care Provider] - 08/06/16 1:40 pm Bola Contreras MD [STAFF PHYSICIAN] - 08/15/16 1:30 pm Rolando Ramirez MD [STAFF PHYSICIAN] - 08/29/16 1:30 pm Patient Instructions/Handouts: *Surgery [facility] - After Heart Catheterization - Humid System Operator Instructions Discharge Disposition: HOME SELF-CARE
[2016-08-05] MEDS ORDERED: ASPIRIN 81 MG CHEW PO SCH (09:00)
== END 2016-08-04 16:23 | disposition home or self-care (01) | DRG 250 ==
LOC: EC 04:24 → 6SEL 06:32
PROVIDERS: ADMIT Hospitalist; ATTEND Hospitalist
PROC: 5A1D60Z (ICD-10-PCS; 2016-08-01)
PROC: 02703ZZ Dilation of Coronary Artery, One Artery, Percutaneous Approach (ICD-10-PCS; principal; 2016-08-03)
PROC: 4A023N7 Measurement of Cardiac Sampling and Pressure, Left Heart, Percutaneous Approach (ICD-10-PCS; 2016-08-03)
PROC: B2111ZZ Fluoroscopy of Multiple Coronary Arteries using Low Osmolar Contrast (ICD-10-PCS; 2016-08-03)
DX: I13.2 Hypertensive heart and chronic kidney disease with heart failure and with stage 5 chronic kidney disease, or end stage renal disease (principal); N18.6 End stage renal disease; J96.01 Acute respiratory failure with hypoxia; I21.4 Non-ST elevation (NSTEMI) myocardial infarction; I50.33 Acute on chronic diastolic (congestive) heart failure; T82.855A Stenosis of coronary artery stent, initial encounter; D63.1 Anemia in chronic kidney disease; E87.5 Hyperkalemia; I16.0 Hypertensive urgency; E78.5 Hyperlipidemia, unspecified; E11.65 Type 2 diabetes mellitus with hyperglycemia; K21.9 Gastro-esophageal reflux disease without esophagitis; E11.22 Type 2 diabetes mellitus with diabetic chronic kidney disease; I34.0 Nonrheumatic mitral (valve) insufficiency; E11.21 Type 2 diabetes mellitus with diabetic nephropathy; E11.42 Type 2 diabetes mellitus with diabetic polyneuropathy; E11.51 Type 2 diabetes mellitus with diabetic peripheral angiopathy without gangrene; I25.10 Atherosclerotic heart disease of native coronary artery without angina pectoris; R94.31 Abnormal electrocardiogram [ECG] [EKG]; R74.8 Abnormal levels of other serum enzymes; I69.398 Other sequelae of cerebral infarction; G47.30 Sleep apnea, unspecified; R00.0 Tachycardia, unspecified; M19.90 Unspecified osteoarthritis, unspecified site; E78.00 Pure hypercholesterolemia, unspecified; R05 Cough; H53.8 Other visual disturbances; F41.9 Anxiety disorder, unspecified; E11.319 Type 2 diabetes mellitus with unspecified diabetic retinopathy without macular edema; K57.90 Diverticulosis of intestine, part unspecified, without perforation or abscess without bleeding; Z71.3 Dietary counseling and surveillance; Z79.4 Long term (current) use of insulin; Z87.891 Personal history of nicotine dependence; Z83.3 Family history of diabetes mellitus; Z99.2 Dependence on renal dialysis; Z88.8 Allergy status to other drugs, medicaments and biological substances; Z79.899 Other long term (current) drug therapy; Z87.19 Personal history of other diseases of the digestive system; Z91.041 Radiographic dye allergy status; Z88.0 Allergy status to penicillin; Z91.013 Allergy to seafood; Z90.49 Acquired absence of other specified parts of digestive tract; Z90.710 Acquired absence of both cervix and uterus; Z98.42 Cataract extraction status, left eye; Z98.41 Cataract extraction status, right eye; Z95.820 Peripheral vascular angioplasty status with implants and grafts
CPT/HCPCS: 36415; 71010; 80053; 82550; 82553; 83036; 83880; 84100; 84484; 85025; 85379; 85610; 85730; 87340; 90935; 93005; 94660; 94760; 96365; 96366; 96375; 99285

== ENCOUNTER → 2016-08-28 | Outpatient (CLI) | payer MEDICARE, BC ==
--- NOTE | 2016-08-28 17:08 | XR ---
EXAMINATION TYPE: XR chest 2V DATE OF EXAM: 08/28/2016 COMPARISON: Prior chest x-ray 08/01/2016 HISTORY: Hypertension, abnormal chest x-ray TECHNIQUE: Frontal and lateral views of the chest are obtained. FINDINGS: There is no focal air space opacity, pleural effusion, or pneumothorax seen. The cardiac silhouette size is stable and enlarged. The osseous structures are intact. There is improvement in interstitial and airspace disease as compared to prior exam. IMPRESSION: No acute cardiopulmonary process. Improvement in volume status as compared to previous e xam.
== END | disposition home or self-care (01) ==
LOC: LABWHC1 16:08
PROVIDERS: ATTEND Surgery
DX: R91.8 Other nonspecific abnormal finding of lung field (principal); R07.9 Chest pain, unspecified
CPT/HCPCS: 36415; 71020; 93005

== ENCOUNTER 2016-09-08 03:09 | Inpatient (IN) | payer MEDICARE, BC ==
[2016-09-08] MEDS ORDERED: NITROGLYCERIN OINT 1 INCH/GM PACKET TOPICAL STA (03:18)
[2016-09-08] MEDS ORDERED: FUROSEMIDE 10 MG/ML 4 ML VIAL IV STA (03:18)
--- NOTE | 2016-09-08 03:22 | ED ---
General Adult HPI - General Stated complaint: SOB Time Seen by Provider: 09/08/16 03:18 Source: patient, RN notes reviewed Limitations: physical limitation - History of Present Illness Initial comments: Patient is a pleasant 56-year-old female presenting to the emergency department with difficulty in breathing. Onset was just over the past hour or so. Patient has had similar symptoms previously associated with congestive heart failure. No chest pain. No fever. Mild cough. No leg pain or leg swelling. Patient is only able to speak occasional words. Patient states she does urine. Patient is on dialysis and has not missed her dialysis. - Related Data Home Medications Medication Instructions Recorded Confirmed Furosemide [Lasix] 80 mg PO BID 09/17/13 09/08/16 Albuterol Inhaler [Ventolin Hfa 1 puff INHALATION RT-BID PRN 02/12/16 09/08/16 Inhaler] Insulin Aspart [NovoLOG Flexpen] 12 unit SQ AC-BRKFST 02/12/16 09/08/16 Atorvastatin [Lipitor] 40 mg PO HS 07/16/16 09/08/16 Insulin Aspart [NovoLOG Flexpen] 14 units SQ AC-LUNCH 07/16/16 09/08/16 Insulin Aspart [NovoLOG Flexpen] 16 units SQ AC-SUPPER 07/16/16 09/08/16 Insulin Glargine,Hum.rec.anlog 38 unit SQ HS 07/16/16 09/08/16 [Lantus Solostar] Metoprolol Tartrate [Lopressor] 50 mg PO BID 07/16/16 09/08/16 ALPRAZolam [Xanax] 0.25 mg PO HS PRN 07/29/16 09/08/16 Calcium Acetate [PhosLo] 667 mg PO BID 08/01/16 09/08/16 amLODIPine [Norvasc] 2.5 mg PO DAILY 08/01/16 09/08/16 Famotidine [Pepcid] 20 mg PO DAILY PRN 08/04/16 09/08/16 Previous Rx's Medication Instructions Recorded Clopidogrel [Plavix] 75 mg PO DAILY tab 02/16/16 Sevelamer [Renvela] 800 mg PO TID-W/MEALS #90 tab 08/04/16 Allergies Allergy/AdvReac Type Severity Reaction Status Date / Time iodine Allergy Anaphylaxis Verified 09/08/16 03:21 Penicillins Allergy Rash/Hives Verified 09/08/16 03:21 shellfish derived Allergy Anaphylaxis Verified 09/08/16 03:21 clonidine AdvReac Unknown Verified 09/08/16 03:21 Review of Systems ROS Statement: Those systems with pertinent positive or pertinent negative responses have been documented in the HPI. ROS Other: All systems not noted in ROS Statement are negative. Constitutional: Denies: fever Eyes: Denies: eye pain ENT: Denies: ear pain Respiratory: Reports: dyspnea Cardiovascular: Denies: chest pain Endocrine: Reports: fatigue Gastrointestinal: Denies: abdominal pain Genitourinary: Denies: dysuria Musculoskeletal: Denies: back pain Skin: Denies: rash Neurological: Denies: weakness Past Medical History Past Medical History: Coronary Artery Disease (CAD), CVA/TIA, Diabetes Mellitus , GERD/Reflux, GI Bleed, Hyperlipidemia, Osteoarthritis (OA), Pneumonia, Renal Disease, Vascular Disorder Additional Past Medical History / Comment(s): Chronic renal failure stage IV with hemodialysis MWF, CVA 2007 with some peripheral vision problems R eye, lower GI bleed, PAD, DJD, diverticulosis, peripheral neuropathy bilateral feet, pancreatitis, See Dr Calixto H &P, History of Any Multi-Drug Resistant Organisms: None Reported Past Surgical History: Cholecystectomy, Heart Catheterization With Stent, Hysterectomy Additional Past Surgical History / Comment(s): L upper arm for dialysis, 3 Cardiac stents, on stent rt leg, colonoscopies , bilateral cataract removal, laser sx bilateral eyes for retinopathy, D&C, left axillary I&D Past Anesthesia/Blood Transfusion Reactions: Motion Sickness, Postoperative Nausea & Vomiting (PONV) Additional Past Anesthesia/Blood Transfusion Reaction / Comment(s): Pt has received blood in the past without reaction. Date of Last Stent Placement:: 09/22/13 Past Psychological History: No Psychological Hx Reported Additional Psychological History / Comment(s): .. Smoking Status: Former smoker Past Alcohol Use History: Occasional Additional Past Alcohol Use History / Comment(s): Pt smoked from 1984 to 2012. 1 PPD Past Drug Use History: None Reported - Past Family History Mother Family Medical History: No Reported History Additional Family Medical History / Comment(s): Mother is 75 yrs old. Father Family Medical History: Diabetes Mellitus Additional Family Medical History / Comment(s): Father at the age of 42 yrs -pt did not discuss cause of . General Exam Limitations: no limitations General appearance: alert, in distress Head exam: Present: atraumatic Eye exam: Present: normal appearance, PERRL ENT exam: Present: normal oropharynx Neck exam: Present: normal inspection Respiratory exam: Present: rales Cardiovascular Exam: Present: tachycardia GI/Abdominal exam: Present: soft. Absent: tenderness Extremities exam: Present: normal inspection. Absent: pedal edema, calf tenderness Neurological exam: Present: alert Psychiatric exam: Present: normal mood Skin exam: Present: diaphoretic Course Vital Signs 09/08/16 09/08/16 09/08/16 03:17 03:21 04:00 Temperature 97.9 F Pulse Rate 98 95 88 Respiratory 38 H 30 H 28 H Rate Blood Pressure 232/94 189/81 O2 Sat by Pulse 60 L 100 99 Oximetry 09/08/16 04:40 Temperature Pulse Rate 84 Respiratory 17 Rate Blood Pressure 169/71 O2 Sat by Pulse 100 Oximetry EKG Findings - EKG Comments: EKG Findings:: Sinus tachycardia 101. MN 134. QRS 84. QT 364. QTC 471. Normal axis. Normal QRS. Nonspecific ST-T. Medical Decision Making - Medical Decision Making Patient reexamined and significantly improved following BiPAP. Case was discussed with Dr. Black, who will admit for Dr. Basurto. - Lab Data Result diagrams: 09/08/16 03:57 09/08/16 03:57 Lab Results 09/08/16 09/08/16 09/08/16 Range/Units 03:57 03:57 03:57 WBC 11.3 H (3.8-10.6) k/uL RBC 4.43 (3.80-5.40) m/uL Hgb 12.8 D (11.4-16.0) gm/dL Hct 42.2 (34.0-46.0) % MCV 95.3 (80.0-100.0) fL MCH 28.8 (25.0-35.0) pg MCHC 30.3 L (31.0-37.0) g/dL RDW 19.0 H (11.5-15.5) % Plt Count 294 (150-450) k/uL Neutrophils % 80 % Lymphocytes % 14 % Monocytes % 2 % Eosinophils % 2 % Basophils % 0 % Neutrophils # 9.0 H (1.3-7.7) k/uL Lymphocytes # 1.6 (1.0-4.8) k/uL Monocytes # 0.3 (0-1.0) k/uL Eosinophils # 0.2 (0-0.7) k/uL Basophils # 0.1 (0-0.2) k/uL Hypochromasia Moderate Anisocytosis Slight Macrocytosis Slight PT (9.0-12.0) sec INR (<1.1) APTT (22.0-30.0) sec Sodium 145 (137-145) mmol/L Potassium 4.8 (3.5-5.1) mmol/L Chloride 100 (98-107) mmol/L Carbon Dioxide 25 (22-30) mmol/L Anion Gap 20 mmol/L BUN 52 H (7-17) mg/dL Creatinine 10.20 H* (0.52-1.04) mg/dL Est GFR (MDRD) Af Amer 5 (>60 ml/min/1.73 sqM) Est GFR (MDRD) Non-Af 4 (>60 ml/min/1.73 sqM) Glucose 226 H (74-99) mg/dL Calcium 10.5 H (8.4-10.2) mg/dL Total Bilirubin 0.5 (0.2-1.3) mg/dL AST 57 H (14-36) U/L ALT 47 (9-52) U/L Alkaline Phosphatase 115 (38-126) U/L Total Creatine Kinase 53 (30-135) U/L CK-MB (CK-2) 1.2 (0.0-2.4) ng/mL CK-MB (CK-2) Rel Index 2.3 Troponin I 0.033 (0.000-0.034) ng/mL NT-Pro-B Natriuret Pep pg/mL Total Protein 8.0 (6.3-8.2) g/dL Albumin 4.7 (3.5-5.0) g/dL 09/08/16 09/08/16 Range/Units 03:57 03:57 WBC (3.8-10.6) k/uL RBC (3.80-5.40) m/uL Hgb (11.4-16.0) gm/dL Hct (34.0-46.0) % MCV (80.0-100.0) fL MCH (25.0-35.0) pg MCHC (31.0-37.0) g/dL RDW (11.5-15.5) % Plt Count (150-450) k/uL Neutrophils % % Lymphocytes % % Monocytes % % Eosinophils % % Basophils % % Neutrophils # (1.3-7.7) k/uL Lymphocytes # (1.0-4.8) k/uL Monocytes # (0-1.0) k/uL Eosinophils # (0-0.7) k/uL Basophils # (0-0.2) k/uL Hypochromasia Anisocytosis Macrocytosis PT 9.6 (9.0-12.0) sec INR 0.9 (<1.1) APTT 22.7 (22.0-30.0) sec Sodium (137-145) mmol/L Potassium (3.5-5.1) mmol/L Chloride (98-107) mmol/L Carbon Dioxide (22-30) mmol/L Anion Gap mmol/L BUN (7-17) mg/dL Creatinine (0.52-1.04) mg/dL Est GFR (MDRD) Af Amer (>60 ml/min/1.73 sqM) Est GFR (MDRD) Non-Af (>60 ml/min/1.73 sqM) Glucose (74-99) mg/dL Calcium (8.4-10.2) mg/dL Total Bilirubin (0.2-1.3) mg/dL AST (14-36) U/L ALT (9-52) U/L Alkaline Phosphatase (38-126) U/L Total Creatine Kinase (30-135) U/L CK-MB (CK-2) (0.0-2.4) ng/mL CK-MB (CK-2) Rel Index Troponin I (0.000-0.034) ng/mL NT-Pro-B Natriuret Pep 220162 pg/mL Total Protein (6.3-8.2) g/dL Albumin (3.5-5.0) g/dL - Radiology Data Radiology results: image reviewed (Chest x-ray shows interstitial edema.) Critical Care Time Critical Care Time: Yes Total Critical Care Time: 33 Disposition Clinical Impression: Acute respiratory failure, Pulmonary edema Disposition: ADMITTED IP TO THIS HOSP Condition: Serious Referrals: Ramiro Sethi MD [Primary Care Provider] - 1-2 days Decision Time: 05:15
--- NOTE | 2016-09-08 04:11 | XR ---
EXAM: XR Chest, 1 View CLINICAL HISTORY: Reason: dyspnea TECHNIQUE: Frontal view of the chest. COMPARISON: Comparison with chest radiography from 08/28/16 FINDINGS: Lungs: Unremarkable. No consolidation. Pleural space: Vascular congestion. Mixed interstitial/alveolar edema throughout. Possible small pleural effusions. No pneumothorax. Heart: Enlarged cardiac silhouette concerning for cardiomegaly. Mediastinum: Unremarkable. Bones/joints: No suspicious lytic or sclerotic lesions of bone. Vasculature: Atherosclerotic calcifications along the thoracic aortic arch. IMPRESSION: Findings are concerning for interval development of congestive heart failure or congestive heart failure exacerbation.
[2016-09-08 04:13] LABS: Anisocytosis Slight; Basophils # (A) 0.1 k/uL (0-0.2); Basophils % (A) 0 %; CH 29.2; CHCM 30.6; Eosinophils # (A) 0.2 k/uL (0-0.7); Eosinophils % (A) 2 %; HCT 42.2 % (34.0-46.0); HDW 2.89; Hypochromasia Moderate; Luc # (Auto) 0.15; Luc % (Auto) 1; Lymphocytes # (A) 1.6 k/uL (1.0-4.8); Lymphocytes % (A) 14 %; MCH 28.8 pg (25.0-35.0); MCHC 30.3 g/dL (31.0-37.0); MCV 95.3 fL (80.0-100.0); Macrocytosis Slight; Mean Platelet Volume 7.2; Monocytes # (A) 0.3 k/uL (0-1.0); Monocytes % (A) 2 %; Neutrophils % (A) 80 %; RBC 4.43 m/uL (3.80-5.40); WBC 11.3 k/uL (3.8-10.6); WBC (Perox) 10.71
[2016-09-08 04:22] LABS: Calcium 10.5 mg/dL (8.4-10.2); Potassium 4.8 mmol/L (3.5-5.1); Total Bilirubin 0.5 mg/dL (0.2-1.3)
[2016-09-08 04:37] LABS: HGB 12.8 gm/dL (11.4-16.0)
[2016-09-08 04:52] LABS: Creatine Kinase MB 1.2 ng/mL (0.0-2.4); Troponin I 0.033 ng/mL (0.000-0.034)
[2016-09-08 04:53] LABS: INR 0.9 (<1.1); Partial Thromboplastin Time 22.7 sec (22.0-30.0); Prothrombin Time 9.6 sec (9.0-12.0)
[2016-09-08] MEDS ORDERED: ASPIRIN 325 MG TAB PO STA (05:16)
[2016-09-08] MEDS ORDERED: FUROSEMIDE 10 MG/ML 4 ML VIAL IV SCH (05:30)
[2016-09-08 07:20] LABS: Glucose,Whole Blood 205 mg/dL (75-99)
--- NOTE | 2016-09-08 10:22 | P.NPCON ---
History of Present Illness - Reason for Consult end stage renal disease - History of Present Illness Reason for consultation: End-stage renal disease History of present illness: Patient is a 56-year-old female seen in renal consultation for end-stage renal disease. She is maintained on hemodialysis on a Thursday schedule via left upper extremity AV graft. Patient has been compliant with hemodialysis as an outpatient. Patient presented to the hospital with dyspnea which began yesterday afternoon while she was watching TV. Patient presented to the hospital for further care. Chest x-ray did reveal vascular congestion. Patient was admitted with similar complaints in July 2016 and at that time underwent balloon angioplasty on the ramus intermediate coronary artery. She denies any chest pain. Hemodynamically she is stable. Currently resting in bed. No vomiting or diarrhea. No fever or chills. Vital signs are stable. General: The patient appeared well nourished and normally developed. HEENT: Head exam is unremarkable. Neck is without jugular venous distension. LUNGS: Scattered rhonchi at bases. Breath sounds decreased. HEART: Rate and Rhythm are regular. First and second heart sounds normal. No murmurs, rubs or gallops. ABDOMEN: Abdominal exam reveals normal bowel sounds. Non-tender and non- distended. No evidence of peritonitis. EXTREMITITES: No clubbing, cyanosis, or edema. Past Medical History Past Medical History: Coronary Artery Disease (CAD), CVA/TIA, Diabetes Mellitus , GERD/Reflux, GI Bleed, Hyperlipidemia, Osteoarthritis (OA), Pneumonia, Renal Disease, Vascular Disorder Additional Past Medical History / Comment(s): Chronic renal failure stage IV with hemodialysis MWF, CVA 2007 with some peripheral vision problems R eye, lower GI bleed, PAD, DJD, diverticulosis, peripheral neuropathy bilateral feet, pancreatitis, See Dr Calixto H &P, History of Any Multi-Drug Resistant Organisms: None Reported Past Surgical History: Cholecystectomy, Heart Catheterization With Stent, Hysterectomy Additional Past Surgical History / Comment(s): L upper arm for dialysis, 3 Cardiac stents, on stent rt leg, colonoscopies , bilateral cataract removal, laser sx bilateral eyes for retinopathy, D&C, left axillary I&D Past Anesthesia/Blood Transfusion Reactions: Motion Sickness, Postoperative Nausea & Vomiting (PONV) Additional Past Anesthesia/Blood Transfusion Reaction / Comment(s): Pt has received blood in the past without reaction. Date of Last Stent Placement:: 09/22/13 Past Psychological History: No Psychological Hx Reported Additional Psychological History / Comment(s): .. Smoking Status: Former smoker Past Alcohol Use History: Occasional Additional Past Alcohol Use History / Comment(s): Pt smoked from 1983 to 2012. 1 PPD Past Drug Use History: None Reported - Past Family History Mother Family Medical History: No Reported History Additional Family Medical History / Comment(s): Mother is 75 yrs old. Father Family Medical History: Diabetes Mellitus Additional Family Medical History / Comment(s): Father at the age of 42 yrs -pt did not discuss cause of . Medications and Allergies Home Medications Medication Instructions Recorded Confirmed Type Furosemide [Lasix] 80 mg PO BID 09/17/13 09/08/16 History Albuterol Inhaler [Ventolin Hfa 1 puff INHALATION RT-BID PRN 02/12/16 09/08/16 History Inhaler] Insulin Aspart [NovoLOG Flexpen] 12 unit SQ AC-BRKFST 02/12/16 09/08/16 History Atorvastatin [Lipitor] 40 mg PO HS 07/16/16 09/08/16 History Insulin Aspart [NovoLOG Flexpen] 14 units SQ AC-LUNCH 07/16/16 09/08/16 History Insulin Aspart [NovoLOG Flexpen] 16 units SQ AC-SUPPER 07/16/16 09/08/16 History Insulin Glargine,Hum.rec.anlog 38 unit SQ HS 07/16/16 09/08/16 History [Lantus Solostar] Metoprolol Tartrate [Lopressor] 50 mg PO BID 07/16/16 09/08/16 History ALPRAZolam [Xanax] 0.25 mg PO HS PRN 07/29/16 09/08/16 History Calcium Acetate [PhosLo] 667 mg PO BID-W/MEALS 08/01/16 09/08/16 History amLODIPine [Norvasc] 2.5 mg PO DAILY 08/01/16 09/08/16 History Famotidine [Pepcid] 20 mg PO DAILY PRN 08/04/16 09/08/16 History Calcium Acetate [PhosLo] 1,334 mg PO W/LUNCH 09/08/16 09/08/16 History Allergies Allergy/AdvReac Type Severity Reaction Status Date / Time clonidine Allergy Unknown Verified 09/08/16 08:37 iodine Allergy Anaphylaxis Verified 09/08/16 08:37 Penicillins Allergy Rash/Hives Verified 09/08/16 08:37 shellfish derived Allergy Anaphylaxis Verified 09/08/16 08:37 Physical Exam Vitals: Vital Signs Temp Pulse Pulse Resp BP BP Pulse Ox 09/08/16 06:25 87 19 09/08/16 05:42 97.2 F L 84 19 179/82 100 09/08/16 05:33 97.0 F L 87 18 180/81 93 L 09/08/16 04:40 84 17 169/71 100 09/08/16 04:00 88 28 H 189/81 99 09/08/16 03:21 95 30 H 100 09/08/16 03:17 97.9 F 98 38 H 232/94 60 L Intake and Output 09/07/16 09/08/16 09/08/16 22:59 06:59 14:59 Intake Total 237 Balance 237 Intake: Oral 237 Other: Weight 69.4 kg Results - Lab Results Most recent lab results Calcium 10.5 mg/dL (8.4-10.2) H 09/08/16 03:57 09/08/16 03:57 09/08/16 03:57 Assessment and Plan Plan: Assessment: #1. End-stage renal disease maintained on hemodialysis on a Thursday schedule via left upper extremity AV graft. #2. Dyspnea related to vascular congestion. Rule out cardiac etiology. #3. Coronary artery disease status post multiple interventions in the past. #4. Chronic kidney disease mineral bone disease. #5. Hypertension with chronic kidney disease. #6. Insulin-dependent diabetes mellitus. Plan: Hemodialysis today with goal 4 L as tolerated. Extra treatment tomorrow depending on her volume status. I will change the Lasix to 80 mg IV twice daily. Resume home medications including antihypertensives and phosphate binders. Cardiology recommendations pending. Thank you for the consultation. I will continue to follow the patient with you during her hospital stay.
[2016-09-08 11:55] LABS: Glucose,Whole Blood 114 mg/dL (75-99)
[2016-09-08] MEDS ORDERED: MORPHINE SULFATE 4 MG/ML SYRINGE ONE (12:35)
[2016-09-08 12:36] LABS: Glucose,Whole Blood 131 mg/dL (75-99)
[2016-09-08] MEDS ORDERED: NITROGLYCERIN-D5W PMX 250 ML IV ONE (12:41)
[2016-09-08] MEDS ORDERED: NITROGLYCERIN-D5W PMX 50 MG in DEXTROSE/WATER 1 250ML.BAG IV SCH (12:45)
[2016-09-08] MEDS ORDERED: MORPHINE SULFATE 4 MG/ML SYRINGE IVP PRN (12:47)
--- NOTE | 2016-09-08 13:02 | CONS ---
DATE OF CONSULTATION: Mr. Kaufman is a 56-year-old female who is seen for the cardiac evaluation. This patient came to the emergency room yesterday with the complaint of shortness of breath and patient was found to be in heart failure. Patient was doing fairly well this morning, then she suddenly became short of breath. She did not complain of any chest pain. Patient was in acute pulmonary edema. She was on the BiPAP. Patient was supposed to get dialysis today. She is being transferred to the intensive care unit for acute respiratory distress and pulmonary edema. Patient has end-stage renal failure and on hemodialysis. She also has a history of coronary artery disease. Patient had a prior history of a stent to the RCA, which is now chronically occluded. The patient had an Non-STEMI in July of 2016 and she only underwent balloon angioplasty of the intermediate coronary artery. Patient's last echocardiogram reveals overall normal left ventricular systolic function. Past medical history includes a history of diabetes, hyperlipidemia, osteoarthritis, vascular disorder, history of CVA and TIA, chronic renal failure, on hemodialysis, history of diverticulosis, cholecystectomy and hysterectomy. Patient's home medications include Lasix 80 mg b.i.d., Lipitor 40 mg daily, insulin, metoprolol 50 mg b.i.d., Norvasc 2.5 mg daily and PhosLo. PHYSICAL EXAMINATION: This patient's initial blood pressure in the emergency room once significantly elevated was 232/94. Blood pressure this morning about an hour ago was 133, while the patient went into of active pulmonary edema, difficult to get the blood pressure. Physical examination at present reveals a 56-year-old female who is in acute respiratory distress with oxygen saturation 86%, 87%, last blood pressure recorded was 133/70 mmHg. HEENT examination is negative. Neck is supple. There is no increase in jugular venous pressure. HEART: First and second heart sounds are normal. Lungs, patient is quite tachypneic, bilateral diffuse rales are present all over. Abdomen is soft. EXTREMITIES: There is no evidence of any significant leg edema. EKG done shows normal sinus rhythm without any acute ischemic changes. Chest x-ray was suggestive of congestive cardiac failure. Initial troponin is 0.033. FINAL IMPRESSION: 1. This patient went into the acute pulmonary edema with respiratory distress. 2. Patient has a history of hypertension and end-stage renal disease. 3. History of coronary artery disease. Patient had only balloon angioplasty of the small-sized intermediate branch and has a totally occluded right coronary artery. I really doubt that this episode of pulmonary edema is secondary to ischemia. Anyway, at present patient is transferred to the intensive care unit. She will be treated with BiPAP. Hemodialysis will be done as soon as possible. If patient's blood pressure is high, we will start the patient on nitroglycerin drip. Patient's overall prognosis is guarded.
--- NOTE | 2016-09-08 13:11 | XR ---
EXAMINATION TYPE: XR chest 1V portable DATE OF EXAM: 09/08/2016 HISTORY: shortness of breath. REFERENCE: Previous study dated 09/08/2016. FINDINGS: Lung volumes are prominent. There is worsening alveolar airspace disease bilaterally. The h eart is mildly enlarged. I could not exclude small effusions. IMPRESSION: WORSENING ALVEOLAR AIRSPACE DISEASE. THIS MAY REPRESENT PULMONARY EDEMA OR PNEUMONIA. CLINICAL CORREL ATION WOULD BE SUGGESTED.
[2016-09-08] MEDS ORDERED: NOREPINEPHRIN 4 MG-0.9% NS PMX 4 MG/250 ML ML IV ONE (14:33)
--- NOTE | 2016-09-08 14:46 | P.CNPUL ---
History of Present Illness Consult date: 09/08/16 Reason for consult: dyspnea History of present illness: 56-year-old -[place] female patient with known history of end-stage renal disease on hemodialysis 3 times a week, Wednesdays and Fridays via a left upper extremity AV graft. The patient has been compliant to her treatment. The patient presented to the ED because of increased shortness of breath that started yesterday afternoon. The patient presented for further care. In the emergency department, the patient had significantly elevated blood pressure with a systolic blood pressure in the 210 range. ProBNP as expected was elevated, above 100,000. The chest x-ray revealed pulmonary vascular congestion and fluid overload. The patient is known to have coronary artery disease. The patient has undergone previous angioplasty of the ramus intermedius artery artery in July 2016. Since she arrived to the ICU, the patient was placed on Nitro drip for hypertensive urgency. She was taking a nitro at the rate of 30 mics and this made her hypotensive with systolic blood pressure dropped down to 120s and once dialysis was started her systolic blood pressure dropped in the mid 70s. The nitroglycerin was immediately discontinued. The dialysis is still on and we are going to support this patient with some levo fed for blood pressure control. She remains free of any chest pain. No cardiac arrhythmias noted in her cardiac rhythm is still sinus. She is currently on a BiPAP at a pressure of 14/7 cm of water with an FiO2 of 90%. She is tolerating the BiPAP treatment without any major difficulties. She is synchronous. Her last dialysis was 3 days ago and today is her usual dialysis day. This is another presentation for hypertensive emergency with secondary flash pulmonary edema. She has a preserved LV function with an ejection fraction of 55%. She also has a moderate degree of mitral regurgitation. Cardiac catheterization was done during her latest admission and she has smaller vessel coronary artery disease. Not abnormal for any intervention. Note that she had a similar presentation in 08/01/2016 when she came in with pulmonary edema and fluid overload and hypertensive urgency with systolic blood pressure running in the 180-190 range. At that time the patient was placed on nitroglycerin drip which improved her blood pressure control. Subsequently she had [id number] dialysis with ultrafiltration and the pulmonary edema recovered. She has a preserved LV function based on previous echocardiograms. Please refer also to the most recent cardiac catheterization was done in July 2016. Review of Systems All systems: negative Constitutional: Denies chills, Denies fever Eyes: denies blurred vision, denies pain Ears, nose, mouth and throat: Denies headache, Denies sore throat Cardiovascular: Denies chest pain, Denies shortness of breath Respiratory: Denies cough Gastrointestinal: Denies abdominal pain, Denies diarrhea, Denies nausea, Denies vomiting Genitourinary: Denies dysuria, Denies hematuria Musculoskeletal: Denies myalgias Integumentary: Denies pruritus, Denies rash Neurological: Denies numbness, Denies weakness Psychiatric: Denies anxiety, Denies depression Endocrine: Denies fatigue, Denies weight change Past Medical History Past Medical History: Coronary Artery Disease (CAD), CVA/TIA, Diabetes Mellitus , GERD/Reflux, GI Bleed, Hyperlipidemia, Osteoarthritis (OA), Pneumonia, Renal Disease, Vascular Disorder Additional Past Medical History / Comment(s): Coronary artery disease, preserved LV function with an ejection fraction of 55% and moderate degree of MR , End stage renal failure with hemodialysis MWF, CVA 2007 with some peripheral vision problems R eye, lower GI bleed, PAD, DJD, diverticulosis, peripheral neuropathy bilateral feet, pancreatitis, See Dr Calixto H &P, History of Any Multi-Drug Resistant Organisms: None Reported Past Surgical History: Cholecystectomy, Heart Catheterization With Stent, Hysterectomy Additional Past Surgical History / Comment(s): L upper arm for dialysis, 3 Cardiac stents, on stent rt leg, colonoscopies , bilateral cataract removal, laser sx bilateral eyes for retinopathy, D&C, left axillary I&D Past Anesthesia/Blood Transfusion Reactions: Motion Sickness, Postoperative Nausea & Vomiting (PONV) Additional Past Anesthesia/Blood Transfusion Reaction / Comment(s): Pt has received blood in the past without reaction. Date of Last Stent Placement:: 09/22/13 Past Psychological History: No Psychological Hx Reported Additional Psychological History / Comment(s): .. Smoking Status: Former smoker Past Alcohol Use History: Occasional Additional Past Alcohol Use History / Comment(s): Pt smoked from 1983 to 2012. 1 PPD Past Drug Use History: None Reported - Past Family History Mother Family Medical History: No Reported History Additional Family Medical History / Comment(s): Mother is 75 yrs old. Father Family Medical History: Diabetes Mellitus Additional Family Medical History / Comment(s): Father at the age of 42 yrs -pt did not discuss cause of . Medications and Allergies Home Medications Medication Instructions Recorded Confirmed Type Furosemide [Lasix] 80 mg PO BID 09/17/13 09/08/16 History Albuterol Inhaler [Ventolin Hfa 1 puff INHALATION RT-BID PRN 02/12/16 09/08/16 History Inhaler] Insulin Aspart [NovoLOG Flexpen] 12 unit SQ AC-BRKFST 02/12/16 09/08/16 History Atorvastatin [Lipitor] 40 mg PO HS 07/16/16 09/08/16 History Insulin Aspart [NovoLOG Flexpen] 14 units SQ AC-LUNCH 07/16/16 09/08/16 History Insulin Aspart [NovoLOG Flexpen] 16 units SQ AC-SUPPER 07/16/16 09/08/16 History Insulin Glargine,Hum.rec.anlog 38 unit SQ HS 07/16/16 09/08/16 History [Lantus Solostar] Metoprolol Tartrate [Lopressor] 50 mg PO BID 07/16/16 09/08/16 History ALPRAZolam [Xanax] 0.25 mg PO HS PRN 07/29/16 09/08/16 History Calcium Acetate [PhosLo] 667 mg PO BID-W/MEALS 08/01/16 09/08/16 History amLODIPine [Norvasc] 2.5 mg PO DAILY 08/01/16 09/08/16 History Famotidine [Pepcid] 20 mg PO DAILY PRN 08/04/16 09/08/16 History Calcium Acetate [PhosLo] 1,334 mg PO W/LUNCH 09/08/16 09/08/16 History Allergies Allergy/AdvReac Type Severity Reaction Status Date / Time clonidine Allergy Unknown Verified 09/08/16 08:37 iodine Allergy Anaphylaxis Verified 09/08/16 08:37 Penicillins Allergy Rash/Hives Verified 09/08/16 08:37 shellfish derived Allergy Anaphylaxis Verified 09/08/16 08:37 Physical Exam Vitals: Vital Signs Temp Pulse Pulse Resp BP BP Pulse Ox 09/08/16 13:20 91 29 H 124/63 98 09/08/16 13:10 92 30 H 147/69 97 09/08/16 13:00 97 27 H 152/82 97 09/08/16 12:50 97.7 F 99 30 H 163/81 100 09/08/16 12:40 105 H 29 H 217/103 100 09/08/16 12:36 97.9 F 109 H 33 H 217/103 99 09/08/16 08:00 97.2 F L 83 16 133/70 96 09/08/16 06:25 87 19 09/08/16 05:42 97.2 F L 84 19 179/82 100 09/08/16 05:33 97.0 F L 87 18 180/81 93 L 09/08/16 04:40 84 17 169/71 100 09/08/16 04:00 88 28 H 189/81 99 09/08/16 03:21 95 30 H 100 09/08/16 03:17 97.9 F 98 38 H 232/94 60 L Intake and Output 09/07/16 09/08/16 09/08/16 22:59 06:59 14:59 Intake Total 237 Output Total 0 Balance 237 Intake: Oral 237 Output: Urine 0 Other: Weight 69.4 kg Head exam was generally normal. There was no scleral icterus or corneal arcus. Mucous membranes were moist. Neck is supple and the patient is positive JVDs no goiter or neck masses. Lungs sounds are diminished in lung bases bilaterally along with some bibasilar crackles.Cardiac exam revealed the PMI to be normally situated and sized. The rhythm was regular and no extrasystoles were noted during several minutes of auscultation. The first and second heart sounds were normal and physiologic splitting of the second heart sound was noted. There were no murmurs, rubs, clicks, or gallops.Abdominal exam revealed normal bowel sounds. The abdomen was soft, non-tender, and without masses, organomegaly, or appreciable enlargement of the abdominal aorta.Examination of the extremities revealed easily palpable radial, femoral and pedal pulses. There was no cyanosis, clubbing or edema. The patient has a left upper extremity AV graft. Results - Laboratory Findings CBC and BMP: 09/08/16 03:57 09/08/16 03:57 PT/INR, D-dimer PT 9.6 sec (9.0-12.0) 09/08/16 03:57 INR 0.9 (<1.1) 09/08/16 03:57 Abnormal lab findings: Abnormal Labs 09/08/16 09/08/16 09/08/16 03:57 03:57 07:18 WBC 11.3 H MCHC 30.3 L RDW 19.0 H Neutrophils # 9.0 H BUN 52 H Creatinine 10.20 H* Glucose 226 H POC Glucose (mg/dL) 205 H Calcium 10.5 H AST 57 H 09/08/16 09/08/16 11:53 12:32 WBC MCHC RDW Neutrophils # BUN Creatinine Glucose POC Glucose (mg/dL) 114 H 131 H Calcium AST - Diagnostic Findings Chest x-ray: image reviewed Assessment and Plan Plan: Assessment 1 acute pulmonary edema secondary to hypertensive emergency. The patient is a preserved LV function with a component of mitral regurgitation and diastolic failure. 2 acute hypoxic history failure currently on BiPAP for respiratory support 3 coronary artery disease status post angioplasty of the ramus intermedius branch 4 End stage renal disease on hemodialysis, compliant to the treatment and last dialysis was approximately 3 days ago 5 diabetes mellitus with poorly controlled blood sugars 6 hypertensive with a poorly controlled blood pressure 7 hyperlipidemia 8 CVA/TIA 9 previous history of GI bleeding 10. Vascular disease 11 diverticulosis 12 osteoarthritis Plan Stop the nitroglycerin drip and support the patient would levo fed through the blood pressure normalizes and stabilizes and gradually wean off the levo fed as tolerated. The patient will undergo hemodialysis as mentioned with ultrafiltration and the goal of 3 L of ultrafiltration to be done today. Continue BiPAP for respiratory support for now at a pressure of 14/7 and gradually wean down the FiO2 as tolerated to maintain a saturation above 90%. The patient is feeling any chest pain. Cardiac cath was noted. Tachycardic and was repeated. Cardiology is on the case. Nephrology on the case. We'll continue to follow and make further recommendations based on her progress. Meanwhile, we'll stop all antihypertensive medication. We'll cover this patient with slight scale insulin coverage. We'll continue to follow.
[2016-09-08] MEDS ORDERED: NOREPINEPHRIN 4 MG-0.9% NS PMX 4 MG/250 ML ML IV SCH (15:00)
[2016-09-08] MEDS: NITROGLYCERIN OINT 1 INCH/GM PACKET TOPICAL SCH ×4 (16:00→22:13)
[2016-09-08] MEDS: FUROSEMIDE 10 MG/ML 10 ML VIAL IV SCH ×2 (16:00→21:28)
--- NOTE | 2016-09-08 19:15 | P.HPIM ---
History of Present Illness H&P Date: 09/08/16 Chief Complaint: Difficulty breathing 56-year-old female with history of CAD, ESRD on hemodialysis, hypertension comes in the hospital with the sudden onset difficulty breathing a day prior to admission. Patient was admitted multiple times the hospital with similar episodes Today during my evaluation A team was called as patient appeared to be significantly distressed in regards to her respiratory status. Patient was hypoxic Has had conversational dyspnea Denies having any chest pain headaches blurry vision nausea vomiting abdominal pain diarrhea. She does not make significant amount of urine Patient is compliant with her hemodialysis EKG does not reveal ST-T wave elevation Patient's blood pressure was elevated to be around 213 systolic or 100 diastolic A chest x-ray revealed pulmonary vessel congestion Review of Systems All systems: negative (Today in HPI) Past Medical History Past Medical History: Coronary Artery Disease (CAD), CVA/TIA, Diabetes Mellitus , GERD/Reflux, GI Bleed, Hyperlipidemia, Osteoarthritis (OA), Pneumonia, Renal Disease, Vascular Disorder Additional Past Medical History / Comment(s): Coronary artery disease, preserved LV function with an ejection fraction of 55% and moderate degree of MR , End stage renal failure with hemodialysis MWF, CVA 2007 with some peripheral vision problems R eye, lower GI bleed, PAD, DJD, diverticulosis, peripheral neuropathy bilateral feet, pancreatitis, See Dr Calixto H &P, History of Any Multi-Drug Resistant Organisms: None Reported Past Surgical History: Cholecystectomy, Heart Catheterization With Stent, Hysterectomy Additional Past Surgical History / Comment(s): L upper arm for dialysis, 3 Cardiac stents, on stent rt leg, colonoscopies , bilateral cataract removal, laser sx bilateral eyes for retinopathy, D&C, left axillary I&D Past Anesthesia/Blood Transfusion Reactions: Motion Sickness, Postoperative Nausea & Vomiting (PONV) Additional Past Anesthesia/Blood Transfusion Reaction / Comment(s): Pt has received blood in the past without reaction. Date of Last Stent Placement:: 09/22/13 Past Psychological History: No Psychological Hx Reported Additional Psychological History / Comment(s): .. Smoking Status: Former smoker Past Alcohol Use History: Occasional Additional Past Alcohol Use History / Comment(s): Pt smoked from 1984 to 2013. 1 PPD Past Drug Use History: None Reported - Past Family History Mother Family Medical History: No Reported History Additional Family Medical History / Comment(s): Mother is 75 yrs old. Father Family Medical History: Diabetes Mellitus Additional Family Medical History / Comment(s): Father at the age of 42 yrs -pt did not discuss cause of . Medications and Allergies Home Medications Medication Instructions Recorded Confirmed Type Furosemide [Lasix] 80 mg PO BID 09/17/13 09/08/16 History Albuterol Inhaler [Ventolin Hfa 1 puff INHALATION RT-BID PRN 02/12/16 09/08/16 History Inhaler] Insulin Aspart [NovoLOG Flexpen] 12 unit SQ AC-BRKFST 02/12/16 09/08/16 History Atorvastatin [Lipitor] 40 mg PO HS 07/16/16 09/08/16 History Insulin Aspart [NovoLOG Flexpen] 14 units SQ AC-LUNCH 07/16/16 09/08/16 History Insulin Aspart [NovoLOG Flexpen] 16 units SQ AC-SUPPER 07/16/16 09/08/16 History Insulin Glargine,Hum.rec.anlog 38 unit SQ HS 07/16/16 09/08/16 History [Lantus Solostar] Metoprolol Tartrate [Lopressor] 50 mg PO BID 07/16/16 09/08/16 History ALPRAZolam [Xanax] 0.25 mg PO HS PRN 07/29/16 09/08/16 History Calcium Acetate [PhosLo] 667 mg PO BID-W/MEALS 08/01/16 09/08/16 History amLODIPine [Norvasc] 2.5 mg PO DAILY 08/01/16 09/08/16 History Famotidine [Pepcid] 20 mg PO DAILY PRN 08/04/16 09/08/16 History Calcium Acetate [PhosLo] 1,334 mg PO W/LUNCH 09/08/16 09/08/16 History Allergies Allergy/AdvReac Type Severity Reaction Status Date / Time clonidine Allergy Unknown Verified 09/08/16 08:37 iodine Allergy Anaphylaxis Verified 09/08/16 08:37 Penicillins Allergy Rash/Hives Verified 09/08/16 08:37 shellfish derived Allergy Anaphylaxis Verified 09/08/16 08:37 Physical Exam Vitals: Vital Signs Temp Pulse Pulse Resp BP BP Pulse Ox 09/08/16 18:15 93 21 149/62 100 09/08/16 18:00 93 22 150/56 86 L 09/08/16 17:45 93 24 148/62 91 L 09/08/16 17:30 93 24 121/51 99 09/08/16 17:15 87 21 120/56 100 09/08/16 17:00 87 22 103/48 99 09/08/16 16:45 93 26 H 118/56 80 L 09/08/16 16:30 88 23 137/57 93 L 09/08/16 16:15 81 20 117/60 96 09/08/16 16:00 98.1 F 81 21 123/57 95 09/08/16 15:45 81 24 92/52 97 09/08/16 15:40 85 40 H 92/52 82 L 09/08/16 15:30 81 24 95/50 100 09/08/16 15:20 82 24 95/50 99 09/08/16 15:10 83 32 H 124/61 100 09/08/16 15:00 83 28 H 135/59 100 09/08/16 14:50 83 26 H 135/59 100 09/08/16 14:40 84 29 H 79/51 09/08/16 14:30 83 27 H 79/53 09/08/16 14:20 81 24 79/53 99 09/08/16 14:10 82 22 90/56 99 09/08/16 14:00 81 25 H 83/53 97 09/08/16 13:50 86 34 H 83/53 98 09/08/16 13:40 85 28 H 76/51 98 09/08/16 13:30 89 30 H 124/63 99 09/08/16 13:20 91 29 H 124/63 98 09/08/16 13:10 92 30 H 147/69 97 09/08/16 13:00 97 27 H 152/82 97 09/08/16 12:50 97.7 F 99 30 H 163/81 100 09/08/16 12:40 105 H 29 H 217/103 100 09/08/16 12:36 97.9 F 109 H 33 H 217/103 99 09/08/16 08:00 97.2 F L 83 16 133/70 96 09/08/16 06:25 87 19 09/08/16 05:42 97.2 F L 84 19 179/82 100 09/08/16 05:33 97.0 F L 87 18 180/81 93 L 09/08/16 04:40 84 17 169/71 100 09/08/16 04:00 88 28 H 189/81 99 09/08/16 03:21 95 30 H 100 09/08/16 03:17 97.9 F 98 38 H 232/94 60 L Intake and Output 09/08/16 09/08/16 09/08/16 06:59 14:59 22:59 Intake Total 247 40 Output Total 0 1730 Balance 247 -1690 Intake: IV 10 40 0.9 NS 10 40 Oral 237 Output: Urine 0 0 Other 1730 Other: Weight 69.4 kg 69.4 kg Patient Weight 09/09/16 06:59 Weight 69.4 kg Physical exam Gen. appearance oriented 3 in no distress Neck is supple no JVD Lungs crackles at the bases Heart S1-S2 heard regular rate and rhythm no murmurs appreciated Abdomen is soft nontender no organomegaly bowel sounds are intact Palpable thrill in the left upper extremity Neurologically cranial nerves II-12 grossly intact no focal motor or sensory deficits noted Skin no abnormalities appreciated Results CBC & Chem 7: 09/08/16 03:57 09/08/16 03:57 Labs: Abnormal Lab Results - Last 24 Hours (Table) 09/08/16 09/08/16 09/08/16 Range/Units 03:57 03:57 07:18 WBC 11.3 H (3.8-10.6) k/uL MCHC 30.3 L (31.0-37.0) g/dL RDW 19.0 H (11.5-15.5) % Neutrophils # 9.0 H (1.3-7.7) k/uL BUN 52 H (7-17) mg/dL Creatinine 10.20 H* (0.52-1.04) mg/dL Glucose 226 H (74-99) mg/dL POC Glucose (mg/dL) 205 H (75-99) mg/dL Calcium 10.5 H (8.4-10.2) mg/dL AST 57 H (14-36) U/L Troponin I (0.000-0.034) ng/mL 09/08/16 09/08/16 09/08/16 Range/Units 11:53 12:32 14:00 WBC (3.8-10.6) k/uL MCHC (31.0-37.0) g/dL RDW (11.5-15.5) % Neutrophils # (1.3-7.7) k/uL BUN (7-17) mg/dL Creatinine (0.52-1.04) mg/dL Glucose (74-99) mg/dL POC Glucose (mg/dL) 114 H 131 H (75-99) mg/dL Calcium (8.4-10.2) mg/dL AST (14-36) U/L Troponin I 0.054 H* (0.000-0.034) ng/mL Thrombosis Risk Factor Assmnt - Choose All That Apply Each Factor Represents 1 point: Age 41-60 years Other Risk Factors: No Thrombosis Risk Factor Assessment Total Risk Factor Score: 1 Thrombosis Risk Factor Assessment Level: Low Risk Assessment and Plan Plan: #1 acute hypoxic respiratory failure secondary to accelerated hypertension and diastolic dysfunction causing pulmonary edema #2 indeterminant troponin leak #3 ESRD and hemodialysis #4 CAD #5 diabetes mellitus type 2 #6 Hypertensive Emergency #7 clinical sleep apnea Plan Hemodialysis today Patient was started on a small dose of nitroglycerin however patient's blood pressure dropped BiPAP settings were changed to 14/7 BiPAP/CPAP centimeters water Titrated down O2 as tolerated Ultrafiltration is titrated tolerated Cardiology on consultation patient is currently in the intensive care continue full ICU support
[2016-09-08] MEDS: METOPROLOL TARTRATE 50 MG TAB PO SCH (20:07)
[2016-09-08] MEDS: ATORVASTATIN 40 MG TAB PO SCH (20:07)
[2016-09-08 20:08] LABS: Glucose,Whole Blood 201 mg/dL (75-99)
[2016-09-08] MEDS: INSULIN GLARGINE 100 UNIT/ML 10 ML VIAL SQ SCH (20:09)
[2016-09-08] MEDS ORDERED: FUROSEMIDE 80 MG TAB PO SCH (21:00)
[2016-09-08] MEDS: ALPRAZolam 0.25 MG TAB PO PRN (22:16)
[2016-09-09 00:42] LABS: Calcium 8.8 mg/dL (8.4-10.2); Potassium 5.2 mmol/L (3.5-5.1)
[2016-09-09 04:14] LABS: Anisocytosis Slight; Basophils % (A) 0 %; CH 29.2; CHCM 31.5; Eosinophils # (A) 0.1 k/uL (0-0.7); Eosinophils % (A) 2 %; HCT 30.7 % (34.0-46.0); HDW 2.82; Hypochromasia Slight; Luc # (Auto) 0.11; Luc % (Auto) 1; Lymphocytes % (A) 14 %; MCHC 31.3 g/dL (31.0-37.0); MCV 92.6 fL (80.0-100.0); Mean Platelet Volume 7.4; Monocytes # (A) 0.2 k/uL (0-1.0); Monocytes % (A) 3 %; Neutrophils # (A) 5.8 k/uL (1.3-7.7); Neutrophils % (A) 79 %; RBC 3.32 m/uL (3.80-5.40); RDW 19.3 % (11.5-15.5); WBC 7.3 k/uL (3.8-10.6); WBC (Perox) 7.28
[2016-09-09 04:18] LABS: HGB 9.6 gm/dL (11.4-16.0)
[2016-09-09 04:56] LABS: Calcium 8.6 mg/dL (8.4-10.2); Magnesium 2.4 mg/dL (1.6-2.3); Potassium 5.1 mmol/L (3.5-5.1)
[2016-09-09] MEDS: ASPIRIN 325 MG TAB PO SCH ×2 (05:45→08:12)
--- NOTE | 2016-09-09 07:07 | XR ---
EXAMINATION TYPE: XR chest 1V DATE OF EXAM: 09/09/2016 HISTORY: r/o fluid overload. REFERENCE: Previous study dated 09/08/2016. FINDINGS: There is improved aeration of both lungs. There continues to be mild, bilateral alveolar ai rspace disease. This is most confluent at the left lung base. The heart is mildly enlarged. No defini te pleural fluid is seen. IMPRESSION: IMPROVED AERATION, BOTH LUNGS.
[2016-09-09 07:33] LABS: Glucose,Whole Blood 63 mg/dL (75-99)
--- NOTE | 2016-09-09 08:02 | P.PN ---
Subjective 56-year-old -[place] female patient with known history of end-stage renal disease on hemodialysis 3 times a week, Wednesdays and Fridays via a left upper extremity AV graft. The patient has been compliant to her treatment. The patient presented to the ED because of increased shortness of breath that started yesterday afternoon. The patient presented for further care. In the emergency department, the patient had significantly elevated blood pressure with a systolic blood pressure in the 210 range. ProBNP as expected was elevated, above 100,000. The chest x-ray revealed pulmonary vascular congestion and fluid overload. The patient is known to have coronary artery disease. The patient has undergone previous angioplasty of the ramus intermedius artery artery in July 2016. Since she arrived to the ICU, the patient was placed on Nitro drip for hypertensive urgency. She was taking a nitro at the rate of 30 mics and this made her hypotensive with systolic blood pressure dropped down to 120s and once dialysis was started her systolic blood pressure dropped in the mid 70s. The nitroglycerin was immediately discontinued. The dialysis is still on and we are going to support this patient with some levo fed for blood pressure control. She remains free of any chest pain. No cardiac arrhythmias noted in her cardiac rhythm is still sinus. She is currently on a BiPAP at a pressure of 14/7 cm of water with an FiO2 of 90%. She is tolerating the BiPAP treatment without any major difficulties. She is synchronous. Her last dialysis was 3 days ago and today is her usual dialysis day. This is another presentation for hypertensive emergency with secondary flash pulmonary edema. She has a preserved LV function with an ejection fraction of 55%. She also has a moderate degree of mitral regurgitation. Cardiac catheterization was done during her latest admission and she has smaller vessel coronary artery disease. Not abnormal for any intervention. Note that she had a similar presentation in 08/01/2016 when she came in with pulmonary edema and fluid overload and hypertensive urgency with systolic blood pressure running in the 180-190 range. At that time the patient was placed on nitroglycerin drip which improved her blood pressure control. Subsequently she had [id number] dialysis with ultrafiltration and the pulmonary edema recovered. She has a preserved LV function based on previous echocardiograms. Please refer also to the most recent cardiac catheterization was done in July 2016. On 09/09/2016 the patient is being seen in follow-up. The patient is much more comfortable and breathing easier. She is currently on oxygen to 3-4 L/m nasal cannula. She was taken off the BiPAP yesterday postdialysis. Note that the dialysis was performed yesterday and the total of 1700 MO's of fluid was taken off. Note that during the time of dialysis the patient became hypotensive and she was taken off the nitroglycerin drip. Her blood pressure subsequently normalized and her most recent BP is around 134/56. She is on a combination of Lopressor and Norvasc on outpatient basis, Norvasc at a dose of 2.5 mg and Lopressor dose of 50 mg by mouth twice a day. The patient is also on Lantus insulin 38 units along with Humalog with meals. The patient was found to have a low blood sugar of 63 this morning however she was asymptomatic. She was given breakfast and subsequent blood sugars improved. She remained asymptomatic throughout this event. She is free of any chest pain. No change in mental status. She is producing some urine and she is on IV Lasix 80 mg IV push every 12 hours. Note that she takes also oral Lasix 80 mg by mouth twice a day on an outpatient basis. Nephrology is on the case. Cardiology is also on the case. Her most recent cardiac catheterization showed smaller coronary arteries without any significant obstruction. The patient had angioplasty of the ramus intermedius branch. Objective - Vital Signs Vital signs: Vital Signs Temp 98.2 F 09/09/16 04:00 Pulse 84 09/09/16 06:30 Resp 32 H 09/09/16 06:30 BP 134/56 09/09/16 06:30 Pulse Ox 94 L 09/09/16 07:25 Intake & Output 09/08/16 09/09/16 09/09/16 18:59 06:59 18:59 Intake Total 287 130 Output Total 1730 0 Balance -1443 130 Weight 69.4 kg 70.3 kg Intake: IV 50 130 0.9 NS 50 130 Oral 237 Output: Urine 0 0 Other 1730 - Exam Head exam was generally normal. There was no scleral icterus or corneal arcus. Mucous membranes were moist. Neck is supple and the patient is positive JVDs no goiter or neck masses. Lungs sounds are diminished in lung bases bilaterally along with some bibasilar crackles.Cardiac exam revealed the PMI to be normally situated and sized. The rhythm was regular and no extrasystoles were noted during several minutes of auscultation. The first and second heart sounds were normal and physiologic splitting of the second heart sound was noted. There were no murmurs, rubs, clicks, or gallops.Abdominal exam revealed normal bowel sounds. The abdomen was soft, non-tender, and without masses, organomegaly, or appreciable enlargement of the abdominal aorta.Examination of the extremities revealed easily palpable radial, femoral and pedal pulses. There was no cyanosis, clubbing or edema. The patient has a left upper extremity AV graft. - Labs CBC & Chem 7: 09/09/16 03:54 09/09/16 03:54 Labs: Abnormal Lab Results - Last 24 Hours (Table) 09/08/16 09/08/16 09/08/16 Range/Units 11:53 12:32 14:00 RBC (3.80-5.40) m/uL Hgb (11.4-16.0) gm/dL Hct (34.0-46.0) % RDW (11.5-15.5) % Potassium (3.5-5.1) mmol/L BUN (7-17) mg/dL Creatinine (0.52-1.04) mg/dL Glucose (74-99) mg/dL POC Glucose (mg/dL) 114 H 131 H (75-99) mg/dL Phosphorus (2.5-4.5) mg/dL Magnesium (1.6-2.3) mg/dL Troponin I 0.054 H* (0.000-0.034) ng/mL 09/08/16 09/08/16 09/08/16 Range/Units 19:50 20:05 23:33 RBC (3.80-5.40) m/uL Hgb (11.4-16.0) gm/dL Hct (34.0-46.0) % RDW (11.5-15.5) % Potassium 5.2 H (3.5-5.1) mmol/L BUN 38 H (7-17) mg/dL Creatinine 6.80 H* (0.52-1.04) mg/dL Glucose 172 H (74-99) mg/dL POC Glucose (mg/dL) 201 H (75-99) mg/dL Phosphorus (2.5-4.5) mg/dL Magnesium (1.6-2.3) mg/dL Troponin I 0.060 H* (0.000-0.034) ng/mL 09/09/16 09/09/16 09/09/16 Range/Units 03:54 03:54 07:29 RBC 3.32 L (3.80-5.40) m/uL Hgb 9.6 L D (11.4-16.0) gm/dL Hct 30.7 L (34.0-46.0) % RDW 19.3 H (11.5-15.5) % Potassium (3.5-5.1) mmol/L BUN 42 H (7-17) mg/dL Creatinine 7.20 H* (0.52-1.04) mg/dL Glucose (74-99) mg/dL POC Glucose (mg/dL) 63 L (75-99) mg/dL Phosphorus 5.0 H (2.5-4.5) mg/dL Magnesium 2.4 H (1.6-2.3) mg/dL Troponin I (0.000-0.034) ng/mL Assessment and Plan Plan: Assessment 1 acute pulmonary edema secondary to hypertensive emergency. The patient is a preserved LV function with a component of mitral regurgitation and diastolic failure. On 09/09/2016, the patient's condition is improved markedly. The patient got dialyzed yesterday and a blood pressure got aggressively treated and controlled. This morning her pulmonary edema has resolved. She is on 2 L of oxygen by nasal cannula saturating around 94%. Hemodynamically stable and the blood pressure is under much better control. She is currently off the nitroglycerin drip. 2 acute hypoxic history failure currently on BiPAP for respiratory support might recovered and the patient is on oxygen at 3 L/m nasal cannula 3 coronary artery disease status post angioplasty of the ramus intermedius branch 4 End stage renal disease on hemodialysis, compliant to the treatment and last dialysis was done yesterday with an ultrafiltration of 1.7 L. 5 diabetes mellitus with poorly controlled blood sugars 6 hypertensive with a poorly controlled blood pressure, currently on Lantus insulin with a single episode of asymptomatic hypoglycemia that was treated earlier this morning. 7 hyperlipidemia 8 CVA/TIA 9 previous history of GI bleeding 10. Peripheral Vascular disease 11 diverticulosis 12 osteoarthritis Plan Continue Lopressor and Norvasc for blood pressure control. No need for any nitroglycerin drip at this point. Chest x-ray has improved markedly with significant improvement in the volume status. Oxygenation has improved. We'll continue monitoring the blood sugar. Advance diet as tolerated. Continue the Lantus insulin along with the Humalog with meals. Possible dialysis today and this will be further discussed with nephrology. Will move the patient up to a medical floor her condition is stable for now.
[2016-09-09 08:10] LABS: Glucose,Whole Blood 83 mg/dL (75-99)
[2016-09-09] MEDS: CALCIUM ACETATE 667 MG CAP PO SCH ×2 (08:11→17:45)
[2016-09-09] MEDS: INSULIN LISPRO (humaLOG) 300 UNIT/3 ML VIAL SQ SCH ×2 (08:11→12:26)
[2016-09-09] MEDS: METOPROLOL TARTRATE 50 MG TAB PO SCH ×2 (08:11→21:43)
[2016-09-09] MEDS: CLOPIDOGREL 75 MG TAB PO SCH (08:12)
[2016-09-09] MEDS: PANTOPRAZOLE 40 MG/10 ML VIAL IV SCH (08:12)
[2016-09-09] MEDS: FUROSEMIDE 80 MG TAB PO SCH ×2 (09:32→15:13)
[2016-09-09] MEDS: amLODIPine 2.5 MG TAB PO SCH (09:32)
[2016-09-09] MEDS: NITROGLYCERIN OINT 1 INCH/GM PACKET TOPICAL SCH ×4 (09:33→23:41)
--- NOTE | 2016-09-09 09:49 | P.PN ---
Subjective Patient is seen in follow-up for end-stage renal disease. She is maintained on hemodialysis on Thursday schedule. Patient presented to the hospital with dyspnea and was noted to have pulmonary edema. She underwent hemodialysis yesterday with 1.7 L ultrafiltration. She feels well today. Dyspnea is much improved. No vomiting or diarrhea. Hemodynamically she stable. Vital signs are stable. General: The patient appeared well nourished and normally developed. HEENT: Head exam is unremarkable. Neck is without jugular venous distension. LUNGS: Mild rhonchi at bases. Breath sounds decreased. HEART: Rate and Rhythm are regular. First and second heart sounds normal. No murmurs, rubs or gallops. ABDOMEN: Abdominal exam reveals normal bowel sounds. Non-tender and non- distended. No evidence of peritonitis. EXTREMITITES: No clubbing, cyanosis, or edema. Objective - Vital Signs Vital signs: Vital Signs Temp 97.9 F 09/09/16 08:00 Pulse 87 09/09/16 08:00 Resp 16 09/09/16 08:00 BP 143/60 09/09/16 08:00 Pulse Ox 94 L 09/09/16 08:00 Intake & Output 09/08/16 09/09/16 09/09/16 18:59 06:59 18:59 Intake Total 287 130 200 Output Total 1730 0 0 Balance -1443 130 200 Weight 69.4 kg 70.3 kg Intake: IV 50 130 0.9 NS 50 130 Oral 237 200 Output: Urine 0 0 0 Other 1730 - Labs CBC & Chem 7: 09/09/16 03:54 09/09/16 03:54 Labs: Abnormal Lab Results - Last 24 Hours (Table) 09/08/16 09/08/16 09/08/16 Range/Units 11:53 12:32 14:00 RBC (3.80-5.40) m/uL Hgb (11.4-16.0) gm/dL Hct (34.0-46.0) % RDW (11.5-15.5) % Potassium (3.5-5.1) mmol/L BUN (7-17) mg/dL Creatinine (0.52-1.04) mg/dL Glucose (74-99) mg/dL POC Glucose (mg/dL) 114 H 131 H (75-99) mg/dL Phosphorus (2.5-4.5) mg/dL Magnesium (1.6-2.3) mg/dL Troponin I 0.054 H* (0.000-0.034) ng/mL 09/08/16 09/08/16 09/08/16 Range/Units 19:50 20:05 23:33 RBC (3.80-5.40) m/uL Hgb (11.4-16.0) gm/dL Hct (34.0-46.0) % RDW (11.5-15.5) % Potassium 5.2 H (3.5-5.1) mmol/L BUN 38 H (7-17) mg/dL Creatinine 6.80 H* (0.52-1.04) mg/dL Glucose 172 H (74-99) mg/dL POC Glucose (mg/dL) 201 H (75-99) mg/dL Phosphorus (2.5-4.5) mg/dL Magnesium (1.6-2.3) mg/dL Troponin I 0.060 H* (0.000-0.034) ng/mL 09/09/16 09/09/16 09/09/16 Range/Units 03:54 03:54 07:29 RBC 3.32 L (3.80-5.40) m/uL Hgb 9.6 L D (11.4-16.0) gm/dL Hct 30.7 L (34.0-46.0) % RDW 19.3 H (11.5-15.5) % Potassium (3.5-5.1) mmol/L BUN 42 H (7-17) mg/dL Creatinine 7.20 H* (0.52-1.04) mg/dL Glucose (74-99) mg/dL POC Glucose (mg/dL) 63 L (75-99) mg/dL Phosphorus 5.0 H (2.5-4.5) mg/dL Magnesium 2.4 H (1.6-2.3) mg/dL Troponin I (0.000-0.034) ng/mL Assessment and Plan Plan: Assessment: #1. End-stage renal disease maintained on hemodialysis on a Thursday schedule via left upper extremity AV graft. #2. Dyspnea related to vascular congestion. Rule out cardiac etiology. #3. Coronary artery disease status post multiple interventions in the past. #4. Chronic kidney disease mineral bone disease. #5. Hypertension with chronic kidney disease. #6. Insulin-dependent diabetes mellitus. Plan: Hemodialysis tomorrow with goal 3 L ultrafiltration as tolerated. Continue Lasix 80 mg orally twice daily. Maintain PhosLo with meals. Stable to be transferred out of the intensive care unit from nephrology standpoint.
[2016-09-09 10:17] VITALS: BMI 25.7
[2016-09-09 12:28] LABS: Glucose,Whole Blood 250 mg/dL (75-99)
[2016-09-09 17:04] LABS: Glucose,Whole Blood 191 mg/dL (75-99)
[2016-09-09] MEDS ORDERED: INSULIN LISPRO (humaLOG) 300 UNIT/3 ML VIAL SQ SCH (17:30)
--- NOTE | 2016-09-09 17:44 | P.PN ---
Subjective 56-year-old female with history of CAD, ESRD on hemodialysis, hypertension comes in the hospital with the sudden onset difficulty breathing a day prior to admission. Patient was admitted multiple times the hospital with similar episodes Today during my evaluation A team was called as patient appeared to be significantly distressed in regards to her respiratory status. Patient was hypoxic Has had conversational dyspnea Denies having any chest pain headaches blurry vision nausea vomiting abdominal pain diarrhea. She does not make significant amount of urine Patient is compliant with her hemodialysis EKG does not reveal ST-T wave elevation Patient's blood pressure was elevated to be around 213 systolic or 100 diastolic A chest x-ray revealed pulmonary vessel congestion 09/09/2016 Patient was seen in the intensive care unit States to be doing better breathing appears to be stable Patient's blood pressures are right at overnight No headaches blurry vision difficulty breathing chest pain nausea vomiting diarrhea is reported Objective - Vital Signs Vital signs: Vital Signs Temp 98.3 F 09/09/16 17:27 Pulse 82 09/09/16 17:27 Resp 16 09/09/16 17:27 BP 158/67 09/09/16 17:27 Pulse Ox 97 09/09/16 17:27 Intake & Output 09/08/16 09/09/16 09/09/16 18:59 06:59 18:59 Intake Total 287 130 450 Output Total 1730 0 0 Balance -1443 130 450 Weight 69.4 kg 70.3 kg 70.3 kg Intake: IV 50 130 0.9 NS 50 130 Oral 237 450 Output: Urine 0 0 0 Other 1730 Other: Voiding Method Toilet - Exam Physical exam Gen. appearance oriented 3 in no distress Neck is supple no JVD Lungs good air entry clear to auscultation no rhonchi or wheezing Heart S1-S2 heard regular rate and rhythm no murmurs appreciated Abdomen is soft nontender no organomegaly bowel sounds are intact Neurologically cranial nerves II-12 grossly intact no focal motor or sensory deficits noted Skin no abnormalities appreciated - Labs CBC & Chem 7: 09/09/16 03:54 09/09/16 03:54 Labs: Abnormal Lab Results - Last 24 Hours (Table) 09/08/16 09/08/16 09/08/16 Range/Units 19:50 20:05 23:33 RBC (3.80-5.40) m/uL Hgb (11.4-16.0) gm/dL Hct (34.0-46.0) % RDW (11.5-15.5) % Potassium 5.2 H (3.5-5.1) mmol/L BUN 38 H (7-17) mg/dL Creatinine 6.80 H* (0.52-1.04) mg/dL Glucose 172 H (74-99) mg/dL POC Glucose (mg/dL) 201 H (75-99) mg/dL Phosphorus (2.5-4.5) mg/dL Magnesium (1.6-2.3) mg/dL Troponin I 0.060 H* (0.000-0.034) ng/mL 09/09/16 09/09/16 09/09/16 Range/Units 03:54 03:54 07:29 RBC 3.32 L (3.80-5.40) m/uL Hgb 9.6 L D (11.4-16.0) gm/dL Hct 30.7 L (34.0-46.0) % RDW 19.3 H (11.5-15.5) % Potassium (3.5-5.1) mmol/L BUN 42 H (7-17) mg/dL Creatinine 7.20 H* (0.52-1.04) mg/dL Glucose (74-99) mg/dL POC Glucose (mg/dL) 63 L (75-99) mg/dL Phosphorus 5.0 H (2.5-4.5) mg/dL Magnesium 2.4 H (1.6-2.3) mg/dL Troponin I (0.000-0.034) ng/mL 09/09/16 09/09/16 Range/Units 12:25 17:03 RBC (3.80-5.40) m/uL Hgb (11.4-16.0) gm/dL Hct (34.0-46.0) % RDW (11.5-15.5) % Potassium (3.5-5.1) mmol/L BUN (7-17) mg/dL Creatinine (0.52-1.04) mg/dL Glucose (74-99) mg/dL POC Glucose (mg/dL) 250 H 191 H (75-99) mg/dL Phosphorus (2.5-4.5) mg/dL Magnesium (1.6-2.3) mg/dL Troponin I (0.000-0.034) ng/mL Assessment and Plan Plan: #1 acute hypoxic respiratory failure secondary to accelerated hypertension and diastolic dysfunction causing pulmonary edema #2 indeterminant troponin leak #3 ESRD and hemodialysis #4 CAD #5 diabetes mellitus type 2 #6 Hypertensive Emergency #7 clinical sleep apnea Plan moniter overnight continue blood pressure management Discussed with the patient regarding using when necessary nitroglycerin if patient's blood pressure spikes at home discussed the risks and benefits of that therapy We'll need outpatient sleep study as well
[2016-09-09 20:40] LABS: Glucose,Whole Blood 128 mg/dL (75-99)
[2016-09-09] MEDS: ATORVASTATIN 40 MG TAB PO SCH (21:43)
[2016-09-09] MEDS: INSULIN GLARGINE 100 UNIT/ML 10 ML VIAL SQ SCH (21:45)
[2016-09-09 23:12] VITALS: PULSE 87; RESP 18
[2016-09-10] MEDS: ALPRAZolam 0.25 MG TAB PO PRN (01:28)
[2016-09-10 07:39] VITALS: BP 133/66; TEMP 98.1
[2016-09-10 07:40] LABS: Glucose,Whole Blood 111 mg/dL (75-99)
[2016-09-10] MEDS: INSULIN LISPRO (humaLOG) 300 UNIT/3 ML VIAL SQ SCH ×3 (07:41→12:50)
[2016-09-10] MEDS: amLODIPine 2.5 MG TAB PO SCH (07:42)
[2016-09-10] MEDS: NITROGLYCERIN OINT 1 INCH/GM PACKET TOPICAL SCH ×2 (07:42→11:56)
[2016-09-10] MEDS: METOPROLOL TARTRATE 50 MG TAB PO SCH (07:42)
[2016-09-10] MEDS: PANTOPRAZOLE 40 MG/10 ML VIAL IV SCH (07:47)
[2016-09-10] MEDS: CLOPIDOGREL 75 MG TAB PO SCH (07:47)
[2016-09-10] MEDS: FUROSEMIDE 80 MG TAB PO SCH ×2 (07:47→15:09)
[2016-09-10] MEDS: ASPIRIN 325 MG TAB PO SCH (07:47)
[2016-09-10] MEDS: CALCIUM ACETATE 667 MG CAP PO SCH (07:47)
[2016-09-10 07:55] LABS: Calcium 9.4 mg/dL (8.4-10.2); Magnesium 2.6 mg/dL (1.6-2.3); Phosphorous 5.9 mg/dL (2.5-4.5); Potassium 4.5 mmol/L (3.5-5.1)
[2016-09-10 08:10] LABS: Anisocytosis Slight; Basophils % (A) 0 %; CH 28.6; CHCM 31.1; Eosinophils # (A) 0.2 k/uL (0-0.7); Eosinophils % (A) 3 %; HCT 29.9 % (34.0-46.0); HDW 2.73; HGB 9.3 gm/dL (11.4-16.0); Hypochromasia Slight; Luc # (Auto) 0.11; Luc % (Auto) 2; Lymphocytes # (A) 0.9 k/uL (1.0-4.8); Lymphocytes % (A) 19 %; MCH 28.5 pg (25.0-35.0); MCV 91.9 fL (80.0-100.0); Mean Platelet Volume 7.9; Monocytes # (A) 0.2 k/uL (0-1.0); Monocytes % (A) 4 %; Neutrophils # (A) 3.4 k/uL (1.3-7.7); Neutrophils % (A) 71 %; RBC 3.26 m/uL (3.80-5.40); RDW 18.9 % (11.5-15.5); WBC 4.8 k/uL (3.8-10.6); WBC (Perox) 4.94
--- NOTE | 2016-09-10 09:56 | ECHOF ---
Referral Reason:LV Function MEASUREMENTS -------- HEIGHT: 165.1 cm WEIGHT: 69.4 kg BP: 124/63 FINDINGS -------- Sinus rhythm. This was a technically adequate study. Limited Study Previous echo 09-08-16 Reevaluate left ventricular function with contrast. Overall left ventricular systolic function is normal with, an EF between 60 - 65 %. CONCLUSIONS -------- 1. Sinus rhythm. 2. This was a technically adequate study. 3. Limited Study 4. Previous echo 09-08-16 5. Reevaluate left ventricular function with contrast. 6. Overall left ventricular systolic function is normal with, an EF between 60 - 65 %. PROPERTY [employer]TY INSURANCE AGENT: Cm Beavers RDCS
[2016-09-10] MEDS ORDERED: DARBEPOETIN ALFA 40 MCG/0.4 ML SYRINGE SQ SCH (10:15)
--- NOTE | 2016-09-10 10:26 | P.PN ---
Subjective Patient is seen in follow-up for end-stage renal disease. She is maintained on hemodialysis on Thursday schedule. Patient presented to the hospital with dyspnea and was noted to have pulmonary edema. She underwent hemodialysis on Thursday with 1.7 L ultrafiltration and is currently undergoing hemodialysis. She feels well today. Dyspnea is much improved. No vomiting or diarrhea. Hemodynamically she stable. Vital signs are stable. General: The patient appeared well nourished and normally developed. HEENT: Head exam is unremarkable. Neck is without jugular venous distension. LUNGS: Mild rhonchi at bases. Breath sounds decreased. HEART: Rate and Rhythm are regular. First and second heart sounds normal. No murmurs, rubs or gallops. ABDOMEN: Abdominal exam reveals normal bowel sounds. Non-tender and non- distended. No evidence of peritonitis. EXTREMITITES: No clubbing, cyanosis, or edema. Objective - Vital Signs Vital signs: Vital Signs Temp 98.1 F 09/10/16 07:00 Pulse 87 09/10/16 07:00 Resp 18 09/10/16 07:00 BP 133/66 09/10/16 07:00 Pulse Ox 92 L 09/10/16 07:35 Intake & Output 09/09/16 09/10/16 09/10/16 18:59 06:59 18:59 Intake Total 450 Output Total 0 0 Balance 450 0 Weight 70.3 kg Intake: Oral 450 Output: Urine 0 0 Other: Voiding Method Toilet Toilet # Voids 1 # Bowel Movements 0 - Labs CBC & Chem 7: 09/10/16 07:18 09/10/16 07:18 Labs: Abnormal Lab Results - Last 24 Hours (Table) 09/09/16 09/09/16 09/09/16 Range/Units 12:25 17:03 20:39 RBC (3.80-5.40) m/uL Hgb (11.4-16.0) gm/dL Hct (34.0-46.0) % RDW (11.5-15.5) % Lymphocytes # (1.0-4.8) k/uL BUN (7-17) mg/dL Creatinine (0.52-1.04) mg/dL Glucose (74-99) mg/dL POC Glucose (mg/dL) 250 H 191 H 128 H (75-99) mg/dL Phosphorus (2.5-4.5) mg/dL Magnesium (1.6-2.3) mg/dL 09/10/16 09/10/16 09/10/16 Range/Units 07:18 07:18 07:38 RBC 3.26 L (3.80-5.40) m/uL Hgb 9.3 L (11.4-16.0) gm/dL Hct 29.9 L (34.0-46.0) % RDW 18.9 H (11.5-15.5) % Lymphocytes # 0.9 L (1.0-4.8) k/uL BUN 70 H (7-17) mg/dL Creatinine 9.73 H* (0.52-1.04) mg/dL Glucose 114 H (74-99) mg/dL POC Glucose (mg/dL) 111 H (75-99) mg/dL Phosphorus 5.9 H (2.5-4.5) mg/dL Magnesium 2.6 H (1.6-2.3) mg/dL Assessment and Plan Plan: Assessment: #1. End-stage renal disease maintained on hemodialysis on a Thursday schedule via left upper extremity AV graft. #2. Dyspnea related to vascular congestion. Rule out cardiac etiology. #3. Coronary artery disease status post multiple interventions in the past. #4. Chronic kidney disease mineral bone disease. #5. Hypertension with chronic kidney disease. #6. Insulin-dependent diabetes mellitus. Plan: Currently undergoing hemodialysis with goal 2-1/2 L ultrafiltration. Continue Lasix 80 mg orally twice daily. Maintain PhosLo with meals. Start Aranesp. Stable to be discharged home from nephrology standpoint once cleared by cardiology.
[2016-09-10 11:28] LABS: Glucose,Whole Blood 135 mg/dL (75-99)
--- NOTE | 2016-09-10 14:55 | P.PN ---
Subjective 56-year-old -[place] female patient with known history of end-stage renal disease on hemodialysis 3 times a week, Wednesdays and Fridays via a left upper extremity AV graft. The patient has been compliant to her treatment. The patient presented to the ED because of increased shortness of breath that started yesterday afternoon. The patient presented for further care. In the emergency department, the patient had significantly elevated blood pressure with a systolic blood pressure in the 210 range. ProBNP as expected was elevated, above 100,000. The chest x-ray revealed pulmonary vascular congestion and fluid overload. The patient is known to have coronary artery disease. The patient has undergone previous angioplasty of the ramus intermedius artery artery in July 2016. Since she arrived to the ICU, the patient was placed on Nitro drip for hypertensive urgency. She was taking a nitro at the rate of 30 mics and this made her hypotensive with systolic blood pressure dropped down to 120s and once dialysis was started her systolic blood pressure dropped in the mid 70s. The nitroglycerin was immediately discontinued. The dialysis is still on and we are going to support this patient with some levo fed for blood pressure control. She remains free of any chest pain. No cardiac arrhythmias noted in her cardiac rhythm is still sinus. She is currently on a BiPAP at a pressure of 14/7 cm of water with an FiO2 of 90%. She is tolerating the BiPAP treatment without any major difficulties. She is synchronous. Her last dialysis was 3 days ago and today is her usual dialysis day. This is another presentation for hypertensive emergency with secondary flash pulmonary edema. She has a preserved LV function with an ejection fraction of 55%. She also has a moderate degree of mitral regurgitation. Cardiac catheterization was done during her latest admission and she has smaller vessel coronary artery disease. Not abnormal for any intervention. Note that she had a similar presentation in 08/01/2016 when she came in with pulmonary edema and fluid overload and hypertensive urgency with systolic blood pressure running in the 180-190 range. At that time the patient was placed on nitroglycerin drip which improved her blood pressure control. Subsequently she had [id number] dialysis with ultrafiltration and the pulmonary edema recovered. She has a preserved LV function based on previous echocardiograms. Please refer also to the most recent cardiac catheterization was done in July 2016. On 09/09/2016 the patient is being seen in follow-up. The patient is much more comfortable and breathing easier. She is currently on oxygen to 3-4 L/m nasal cannula. She was taken off the BiPAP yesterday postdialysis. Note that the dialysis was performed yesterday and the total of 1700 MO's of fluid was taken off. Note that during the time of dialysis the patient became hypotensive and she was taken off the nitroglycerin drip. Her blood pressure subsequently normalized and her most recent BP is around 134/56. She is on a combination of Lopressor and Norvasc on outpatient basis, Norvasc at a dose of 2.5 mg and Lopressor dose of 50 mg by mouth twice a day. The patient is also on Lantus insulin 38 units along with Humalog with meals. The patient was found to have a low blood sugar of 63 this morning however she was asymptomatic. She was given breakfast and subsequent blood sugars improved. She remained asymptomatic throughout this event. She is free of any chest pain. No change in mental status. She is producing some urine and she is on IV Lasix 80 mg IV push every 12 hours. Note that she takes also oral Lasix 80 mg by mouth twice a day on an outpatient basis. Nephrology is on the case. Cardiology is also on the case. Her most recent cardiac catheterization showed smaller coronary arteries without any significant obstruction. The patient had angioplasty of the ramus intermedius branch. On 09/10/2016 the patient underwent another session of hemodialysis. She is doing extremely well. She denies having any specific complaints. No chest pain. No shortness of breath. The current pulse ox is around 92% 40s of oxygen nasal cannula. She is afebrile. Most recent blood pressure is 133/66 and the blood pressure is well controlled. The echocardiogram was done and showed a preserved LV function with an ejection fraction of 60-65%. The overall echo window was suboptimal. Cardiac catheterization was done during her most recent hospitalization and she has nonocclusive disease. No other complaints for now. She is not having any specific shortness of breath or chest pain. She is tolerating her diet. No other significant events over the past 24 hours. Objective - Vital Signs Vital signs: Vital Signs Temp 98.1 F 09/10/16 07:00 Pulse 87 09/10/16 07:00 Resp 18 09/10/16 07:00 BP 133/66 09/10/16 07:00 Pulse Ox 92 L 09/10/16 07:35 Intake & Output 09/09/16 09/10/16 09/10/16 18:59 06:59 18:59 Intake Total 450 Output Total 0 0 Balance 450 0 Weight 70.3 kg Intake: Oral 450 Output: Urine 0 0 Other: Voiding Method Toilet Toilet # Voids 1 # Bowel Movements 0 - Exam Head exam was generally normal. There was no scleral icterus or corneal arcus. Mucous membranes were moist. Neck is supple and the patient is positive JVDs no goiter or neck masses. Lungs sounds are diminished in lung bases bilaterally along with some bibasilar crackles.Cardiac exam revealed the PMI to be normally situated and sized. The rhythm was regular and no extrasystoles were noted during several minutes of auscultation. The first and second heart sounds were normal and physiologic splitting of the second heart sound was noted. There were no murmurs, rubs, clicks, or gallops.Abdominal exam revealed normal bowel sounds. The abdomen was soft, non-tender, and without masses, organomegaly, or appreciable enlargement of the abdominal aorta.Examination of the extremities revealed easily palpable radial, femoral and pedal pulses. There was no cyanosis, clubbing or edema. The patient has a left upper extremity AV graft. - Labs CBC & Chem 7: 09/10/16 07:18 09/10/16 07:18 Labs: Abnormal Lab Results - Last 24 Hours (Table) 09/09/16 09/09/16 09/10/16 Range/Units 17:03 20:39 07:18 RBC 3.26 L (3.80-5.40) m/uL Hgb 9.3 L (11.4-16.0) gm/dL Hct 29.9 L (34.0-46.0) % RDW 18.9 H (11.5-15.5) % Lymphocytes # 0.9 L (1.0-4.8) k/uL BUN (7-17) mg/dL Creatinine (0.52-1.04) mg/dL Glucose (74-99) mg/dL POC Glucose (mg/dL) 191 H 128 H (75-99) mg/dL Phosphorus (2.5-4.5) mg/dL Magnesium (1.6-2.3) mg/dL 09/10/16 09/10/16 09/10/16 Range/Units 07:18 07:38 11:26 RBC (3.80-5.40) m/uL Hgb (11.4-16.0) gm/dL Hct (34.0-46.0) % RDW (11.5-15.5) % Lymphocytes # (1.0-4.8) k/uL BUN 70 H (7-17) mg/dL Creatinine 9.73 H* (0.52-1.04) mg/dL Glucose 114 H (74-99) mg/dL POC Glucose (mg/dL) 111 H 135 H (75-99) mg/dL Phosphorus 5.9 H (2.5-4.5) mg/dL Magnesium 2.6 H (1.6-2.3) mg/dL Assessment and Plan Plan: Assessment 1 acute pulmonary edema secondary to hypertensive emergency. The patient is a preserved LV function with a component of mitral regurgitation and diastolic failure. On 09/09/2016, the patient's condition is improved markedly. The patient got dialyzed yesterday and a blood pressure got aggressively treated and controlled. This morning her pulmonary edema has resolved. She is on 2 L of oxygen by nasal cannula saturating around 94%. Hemodynamically stable and the blood pressure is under much better control. She is currently off the nitroglycerin drip. On 09/10/2016 the patient's condition is stable. Blood pressure is stable. Respiratory status is stable. The patient underwent another session of hemodialysis. Repeat echocardiogram showed preserved LV function. 2 acute hypoxic history failure currently on BiPAP for respiratory support might recovered and the patient is on oxygen at 3 L/m nasal cannula 3 coronary artery disease status post angioplasty of the ramus intermedius branch 4 End stage renal disease on hemodialysis, compliant to the treatment and last dialysis was done yesterday with an ultrafiltration of 1.7 L. 5 diabetes mellitus with poorly controlled blood sugars 6 hypertensive with a poorly controlled blood pressure, currently on Lantus insulin with a single episode of asymptomatic hypoglycemia that was treated earlier this morning. 7 hyperlipidemia 8 CVA/TIA 9 previous history of GI bleeding 10. Peripheral Vascular disease 11 diverticulosis 12 osteoarthritis Plan Patient is doing well. Blood pressures under good control. No significant signs of volume overload. Wean off FiO2 as tolerated to maintain a saturation above 90%. We'll continue to follow make further recommendations based on her progress. Discharge planning is in progress.
--- NOTE | 2016-09-10 18:16 | P.DS ---
Providers Date of admission: 09/08/16 05:16 Attending physician: Srinivas Black Consults: 09/08/16 05:16 Consult Physician Routine Consulting Provider: Geovany Nobles Consult Reason/Comments: pulmonary edema Do you want consulting provider notified?: Yes Consult Physician Routine Consulting Provider: Stefania Zhu Consult Reason/Comments: crf, pulmonary edema Do you want consulting provider notified?: Yes 09/08/16 12:23 Consult Physician Routine Consulting Provider: Rolando Ramirez Consult Reason/Comments: ICU MANAGEMENT Do you want consulting provider notified?: Yes Primary care physician: Jossie [facility] Course: 56-year-old female with history of CAD, ESRD on hemodialysis, hypertension comes in the hospital with the sudden onset difficulty breathing a day prior to admission. Patient was admitted multiple times the hospital with similar episodes Today during my evaluation A team was called as patient appeared to be significantly distressed in regards to her respiratory status. Patient was hypoxic Has had conversational dyspnea Denies having any chest pain headaches blurry vision nausea vomiting abdominal pain diarrhea. She does not make significant amount of urine Patient is compliant with her hemodialysis EKG does not reveal ST-T wave elevation Patient's blood pressure was elevated to be around 213 systolic or 100 diastolic A chest x-ray revealed pulmonary vessel congestion 09/09/2016 Patient was seen in the intensive care unit States to be doing better breathing appears to be stable Patient's blood pressures are right at overnight No headaches blurry vision difficulty breathing chest pain nausea vomiting diarrhea is reported Objective - Vital Signs Vital signs: Vital Signs Temp 98.3 F 09/09/16 17:27 Pulse 82 09/09/16 17:27 Resp 16 09/09/16 17:27 BP 158/67 09/09/16 17:27 Pulse Ox 97 09/09/16 17:27 Intake & Output 09/08/16 09/09/16 09/09/16 18:59 06:59 18:59 Intake Total 287 130 450 Output Total 1730 0 0 Balance -1443 130 450 Weight 69.4 kg 70.3 kg 70.3 kg Intake: IV 50 130 0.9 NS 50 130 Oral 237 450 Output: Urine 0 0 0 Other 1730 Other: Voiding Method Toilet - Exam Physical exam Gen. appearance oriented 3 in no distress Neck is supple no JVD Lungs good air entry clear to auscultation no rhonchi or wheezing Heart S1-S2 heard regular rate and rhythm no murmurs appreciated Abdomen is soft nontender no organomegaly bowel sounds are intact Neurologically cranial nerves II-12 grossly intact no focal motor or sensory deficits noted Skin no abnormalities appreciated Assessment and Plan Plan: #1 acute hypoxic respiratory failure secondary to accelerated hypertension and diastolic dysfunction causing pulmonary edema #2 indeterminant troponin leak #3 ESRD and hemodialysis #4 CAD #5 diabetes mellitus type 2 #6 Hypertensive Emergency #7 clinical sleep apnea Imdur 30 mg will be added Discuss) pressure monitoring We'll follow up with Dr. Ashley rodriguez for a sleep study as well Patient Condition at Discharge: Fair Plan - Discharge Summary New Discharge Prescriptions: New Isosorbide Mononitrate ER [Imdur] 30 mg PO DAILY #30 tab Continue Furosemide [Lasix] 80 mg PO BID Insulin Aspart [NovoLOG Flexpen] 12 unit SQ AC-BRKFST Albuterol Inhaler [Ventolin Hfa Inhaler] 1 puff INHALATION RT-BID PRN PRN Reason: Shortness Of Breath Clopidogrel [Plavix] 75 mg PO DAILY tab Insulin Glargine,Hum.rec.anlog [Lantus Solostar] 38 unit SQ HS Atorvastatin [Lipitor] 40 mg PO HS Metoprolol Tartrate [Lopressor] 50 mg PO BID Insulin Aspart [NovoLOG Flexpen] 14 units SQ AC-LUNCH Insulin Aspart [NovoLOG Flexpen] 16 units SQ AC-SUPPER ALPRAZolam [Xanax] 0.25 mg PO HS PRN PRN Reason: sleep Calcium Acetate [PhosLo] 667 mg PO BID-W/MEALS amLODIPine [Norvasc] 2.5 mg PO DAILY Famotidine [Pepcid] 20 mg PO DAILY PRN PRN Reason: Heartburn Sevelamer [Renvela] 800 mg PO TID-W/MEALS #90 tab Calcium Acetate [PhosLo] 1,334 mg PO W/LUNCH Discharge Medication List Furosemide [Lasix] 80 mg PO BID 09/17/13 [History] Albuterol Inhaler [Ventolin Hfa Inhaler] 1 puff INHALATION RT-BID PRN 02/12/16 [ History] Insulin Aspart [NovoLOG Flexpen] 12 unit SQ AC-BRKFST 02/12/16 [History] Clopidogrel [Plavix] 75 mg PO DAILY tab 02/16/16 [Rx] Atorvastatin [Lipitor] 40 mg PO HS 07/16/16 [History] Insulin Aspart [NovoLOG Flexpen] 14 units SQ AC-LUNCH 07/16/16 [History] Insulin Aspart [NovoLOG Flexpen] 16 units SQ AC-SUPPER 07/16/16 [History] Insulin Glargine,Hum.rec.anlog [Lantus Solostar] 38 unit SQ HS 07/16/16 [History ] Metoprolol Tartrate [Lopressor] 50 mg PO BID 07/16/16 [History] ALPRAZolam [Xanax] 0.25 mg PO HS PRN 07/29/16 [History] Calcium Acetate [PhosLo] 667 mg PO BID-W/MEALS 08/01/16 [History] amLODIPine [Norvasc] 2.5 mg PO DAILY 08/01/16 [History] Famotidine [Pepcid] 20 mg PO DAILY PRN 08/04/16 [History] Sevelamer [Renvela] 800 mg PO TID-W/MEALS #90 tab 08/04/16 [Rx] Calcium Acetate [PhosLo] 1,334 mg PO W/LUNCH 09/08/16 [History] Isosorbide Mononitrate ER [Imdur] 30 mg PO DAILY #30 tab 09/10/16 [Rx] Follow up Appointment(s)/Referral(s): Ramiro Sethi MD [Primary Care Provider] - 1-2 days (Office system is down today 09/10/16. Please try to call tomorrow to make appt.) Thomas Damon DO [STAFF PHYSICIAN] - 1 Week (Office closed on . Please call for appt in a.m.) Patient Instructions/Handouts: Heart Failure (DC), Pulmonary Edema (DC), Diabetic Kidney Disease (DC) Activity/Diet/Wound Care/Special Instructions: Hemodialysis as before on Thursday, Thursday and Thursday. Renal, consistent carb, cardiac diet. Discharge Disposition: HOME SELF-CARE
[2016-09-11] MEDS ORDERED: PANTOPRAZOLE 40 MG TABLET PO SCH (07:30)
--- NOTE | 2016-09-12 09:47 | PN ---
This patient developed flash pulmonary edema most likely secondary to acute hypertension emergency. Patient looks much better today. Patient was aggressively treated with nitroglycerine, BiPAP and dialysis and her pulmonary edema has resolved. She has borderline elevation with troponin. Patient is doing better. Denies any chest pain or shortness of breath. Blood pressure is 152/72 mmHg. First and second heart sounds are normal. Lungs are fairly clear to auscultation and discussion. FINAL IMPRESSION: This patient developed flash pulmonary edema secondary to hypertensive emergency. I do not think this is ischemic in etiology. Aggressive control of the blood pressure is suggested. May consider treatment with clonidine patch and continue the rest of the medications. MTDD
== END 2016-09-10 15:24 | disposition home or self-care (01) | DRG 189 ==
LOC: EC 03:09 → 6SEL 05:16 → 6ICU 12:35 → 4MS4W 09-09 16:43
PROVIDERS: ADMIT Internal Medicine; ATTEND Internal Medicine
PROC: 5A09357 Assistance with Respiratory Ventilation, Less than 24 Consecutive Hours, Continuous Positive Airway Pressure (ICD-10-PCS; principal; 2016-09-08)
PROC: 5A1D60Z (ICD-10-PCS; 2016-09-08)
DX: J96.01 Acute respiratory failure with hypoxia (principal); J81.0 Acute pulmonary edema; N18.6 End stage renal disease; I12.0 Hypertensive chronic kidney disease with stage 5 chronic kidney disease or end stage renal disease; I16.1 Hypertensive emergency; I95.9 Hypotension, unspecified; I25.82 Chronic total occlusion of coronary artery; Y92.239 Unspecified place in hospital as the place of occurrence of the external cause; E11.42 Type 2 diabetes mellitus with diabetic polyneuropathy; E11.51 Type 2 diabetes mellitus with diabetic peripheral angiopathy without gangrene; E11.22 Type 2 diabetes mellitus with diabetic chronic kidney disease; E11.649 Type 2 diabetes mellitus with hypoglycemia without coma; E11.319 Type 2 diabetes mellitus with unspecified diabetic retinopathy without macular edema; E78.5 Hyperlipidemia, unspecified; G47.30 Sleep apnea, unspecified; I25.10 Atherosclerotic heart disease of native coronary artery without angina pectoris; I25.2 Old myocardial infarction; I34.0 Nonrheumatic mitral (valve) insufficiency; K21.9 Gastro-esophageal reflux disease without esophagitis; K57.90 Diverticulosis of intestine, part unspecified, without perforation or abscess without bleeding; M19.90 Unspecified osteoarthritis, unspecified site; T46.3X5A Adverse effect of coronary vasodilators, initial encounter; I69.998 Other sequelae following unspecified cerebrovascular disease; H53.8 Other visual disturbances; Z79.4 Long term (current) use of insulin; Z79.899 Other long term (current) drug therapy; Z88.0 Allergy status to penicillin; Z88.8 Allergy status to other drugs, medicaments and biological substances; Z87.891 Personal history of nicotine dependence; Z95.5 Presence of coronary angioplasty implant and graft; Z99.2 Dependence on renal dialysis
CPT/HCPCS: 36415; 71010; 80048; 80053; 82550; 82553; 83735; 83880; 84100; 84484; 85025; 85610; 85730; 90935; 93306; 93308; 94660; 94760; 96374; 99291

== ENCOUNTER → 2016-09-18 | Outpatient (CLI) | payer MEDICARE, BC ==
--- NOTE | 2016-09-18 15:20 | US ---
EXAMINATION TYPE: US kidneys/renal and bladder DATE OF EXAM: 09/18/2016 COMPARISON: NONE CLINICAL HISTORY: MASS N28.9. pt states known renal failure, no known masses EXAM MEASUREMENTS: Right Kidney: 6.8 x 3.1 x 3.4 cm Left Kidney: 6.9 x 3.9 x 2.9 cm Right Kidney: atrophied, cortical thinning, heterogeneous sinus; seen with a 7mm cyst at the medial m id pole Left Kidney: atrophied, cortical thinning, heterogeneous sinus Bladder: not well seen Bilateral Jets seen: no IMPRESSION: Bilateral renal parenchymal thinning and small right renal cortical cyst.
== END | disposition home or self-care (01) ==
LOC: RADUSWWP 14:40
PROVIDERS: ATTEND Surgery
DX: N28.1 Cyst of kidney, acquired (principal)
CPT/HCPCS: 76770

== ENCOUNTER 2016-10-30 08:17 | Inpatient (IN) | payer MEDICARE, BC ==
[2016-10-30] MEDS ORDERED: LABETALOL 5 MG/ML VIAL MDV IVP STA (08:31)
[2016-10-30] MEDS ORDERED: NITROGLYCERIN OINT 1 INCH/GM PACKET TOPICAL STA (08:32)
[2016-10-30] MEDS ORDERED: FUROSEMIDE 10 MG/ML 10 ML VIAL IV STA (08:35)
--- NOTE | 2016-10-30 08:37 | ED ---
General Adult HPI - General Chief complaint: Shortness of Breath Stated complaint: SOB, chest pain Time Seen by Provider: 10/30/16 08:20 Source: patient, RN notes reviewed Mode of arrival: wheelchair Limitations: no limitations - History of Present Illness Initial comments: This is a 56-year-old female who presents to the emergency department complaining of difficulty breathing. Patient states she had dialysis yesterday and woke up this morning having significant difficulty breathing. Patient has not taken her water pill or any for high blood pressure medication today. Patient states she believes she is fluid overloaded. Patient denies any fever chills. Patient denies any chest pain or palpitations. Patient denies any recent cough. Patient denies abdominal pain patient denies nausea vomiting diarrhea. Patient denies any headache patient denies numbness weakness. Patient denies any lightheadedness or dizziness patient denies headache patient denies numbness weakness - Related Data Home Medications Medication Instructions Recorded Confirmed Furosemide [Lasix] 80 mg PO BID 09/17/13 10/30/16 Albuterol Inhaler [Ventolin Hfa 1 puff INHALATION RT-BID 02/12/16 10/30/16 Inhaler] Atorvastatin [Lipitor] 40 mg PO HS 07/16/16 10/30/16 Insulin Aspart [NovoLOG Flexpen] See Protocol SQ AC-TID 07/16/16 10/30/16 Metoprolol Tartrate [Lopressor] 50 mg PO DAILY 07/16/16 10/30/16 ALPRAZolam [Xanax] 0.25 mg PO HS PRN 07/29/16 10/30/16 Aspirin EC [Ecotrin Low Dose] 81 mg PO DAILY 10/30/16 10/30/16 Folic Acid-Vit B Complex-Vit C 1 cap PO DAILY 10/30/16 10/30/16 [Nephrocaps] Fosrenol 1000mg 1,000 mg PO ACHS 10/30/16 10/30/16 Insulin Glargine,Hum.rec.anlog 38 units SQ HS 10/30/16 10/30/16 [Toumoriso Solostar] Nitroglycerin Sl Tabs [Nitrostat] 0.4 mg SUBLINGUAL Q5M PRN 10/30/16 10/30/16 Sevelamer [Renvela] 800 mg PO AC-TID 10/30/16 10/30/16 amLODIPine [Norvasc] 5 mg PO DAILY 10/30/16 10/30/16 Previous Rx's Medication Instructions Recorded Clopidogrel [Plavix] 75 mg PO DAILY tab 02/16/16 Allergies Allergy/AdvReac Type Severity Reaction Status Date / Time clonidine Allergy Anaphylaxis Verified 10/30/16 09:25 Iodinated Contrast- Oral and Allergy Anaphylaxis Verified 10/30/16 09:25 IV Dye iodine Allergy Anaphylaxis Verified 10/30/16 09:25 Penicillins Allergy Rash/Hives Verified 10/30/16 09:25 shellfish derived Allergy Anaphylaxis Verified 10/30/16 09:25 Review of Systems ROS Statement: Those systems with pertinent positive or pertinent negative responses have been documented in the HPI. ROS Other: All systems not noted in ROS Statement are negative. Past Medical History Past Medical History: Coronary Artery Disease (CAD), CVA/TIA, Diabetes Mellitus , GERD/Reflux, GI Bleed, Hyperlipidemia, Osteoarthritis (OA), Pneumonia, Renal Disease, Vascular Disorder Additional Past Medical History / Comment(s): Coronary artery disease, preserved LV function with an ejection fraction of 55% and moderate degree of MR , End stage renal failure with hemodialysis MWF, CVA 2007 with some peripheral vision problems R eye, lower GI bleed, PAD, DJD, diverticulosis, peripheral neuropathy bilateral feet, pancreatitis, See Dr Calixto H &P, History of Any Multi-Drug Resistant Organisms: None Reported Past Surgical History: Cholecystectomy, Heart Catheterization With Stent, Hysterectomy Additional Past Surgical History / Comment(s): L upper arm for dialysis, 3 Cardiac stents, on stent rt leg, colonoscopies , bilateral cataract removal, laser sx bilateral eyes for retinopathy, D&C, left axillary I&D Past Anesthesia/Blood Transfusion Reactions: Motion Sickness, Postoperative Nausea & Vomiting (PONV) Additional Past Anesthesia/Blood Transfusion Reaction / Comment(s): Pt has received blood in the past without reaction. Date of Last Stent Placement:: 09/22/13 Past Psychological History: No Psychological Hx Reported Smoking Status: Former smoker Past Alcohol Use History: Occasional Past Drug Use History: None Reported - Past Family History Mother Family Medical History: No Reported History Additional Family Medical History / Comment(s): Mother is 75 yrs old. Father Family Medical History: Diabetes Mellitus Additional Family Medical History / Comment(s): Father at the age of 42 yrs -pt did not discuss cause of . General Exam - General Exam Comments Initial Comments: GENERAL: Patient is well-developed and well-nourished. Patient is nontoxic and well- hydrated and is in moderate distress. ENT: Neck is soft and supple. No significant lymphadenopathy is noted. Oropharynx is clear. Moist mucous membranes. Neck has full range of motion without eliciting any pain. EYES: The sclera were anicteric and conjunctiva were pink and moist. Extraocular movements were intact and pupils were equal round and reactive to light. Eyelids were unremarkable. PULMONARY: Patient has crackles bilateral bases CARDIOVASCULAR: There is a regular rate and rhythm without any murmurs gallops or rubs. ABDOMEN: Soft and nontender with normal bowel sounds. No palpable organomegaly was noted. There is no palpable pulsatile mass. SKIN: Skin is clear with no lesions or rashes and otherwise unremarkable. NEUROLOGIC: Patient is alert and oriented x3. Cranial nerves II through XII are grossly intact. Motor and sensory are also intact. Normal speech, volume and content. Symmetrical smile. MUSCULOSKELETAL: Normal extremities with adequate strength and full range of motion. No lower extremity swelling or edema. No calf tenderness. LYMPHATICS: No significant lymphadenopathy is noted PSYCHIATRIC: Normal psychiatric evaluation. Normal interpersonal interactions appears functionally intact in deals appropriately with others. No signs of depression. No signs of anxiety. Limitations: no limitations Course Vital Signs 10/30/16 10/30/16 10/30/16 08:19 08:20 08:56 Temperature 98 F Pulse Rate 103 H 96 Respiratory 24 22 29 H Rate Blood Pressure 245/119 243/112 189/81 O2 Sat by Pulse 98 81 L 97 Oximetry 10/30/16 09:32 Temperature 98.0 F Pulse Rate 90 Respiratory 29 H Rate Blood Pressure 124/60 O2 Sat by Pulse 98 Oximetry Medical Decision Making - Medical Decision Making EKG shows sinus tachycardia with an occasional PVC at a rate of 102 bpm AL interval is 136 QRS is 96 QT interval 372 QTC is 484. Patient's EKG shows some ST segment depression in leads V4 V5 and V6. Chest x-ray shows pulmonary edema. The patient Lasix Nitropaste and patient also had a high blood pressure so I gave the patient 20 labetalol. I went back into reevaluate the patient and the patient was feeling considerably better oxygenating 100% on nasal cannula. Patient also was not having any difficulty at this time breathing. I talked to Dr. Daily he agreed to admit the patient I admitted the patient I wrote admitting orders I continued Lasix Nitropaste on the floor and I consult Dr. Zhu - Lab Data Result diagrams: 10/30/16 08:45 10/30/16 08:45 Lab Results 10/30/16 10/30/16 10/30/16 Range/Units 08:45 08:45 08:45 WBC 6.2 (3.8-10.6) k/uL RBC 3.96 (3.80-5.40) m/uL Hgb 12.0 (11.4-16.0) gm/dL Hct 38.8 (34.0-46.0) % MCV 98.0 D (80.0-100.0) fL MCH 30.3 (25.0-35.0) pg MCHC 30.9 L (31.0-37.0) g/dL RDW 20.5 H (11.5-15.5) % Plt Count 306 (150-450) k/uL Neutrophils % 70 % Lymphocytes % 20 % Monocytes % 5 % Eosinophils % 2 % Basophils % 0 % Neutrophils # 4.3 (1.3-7.7) k/uL Lymphocytes # 1.2 (1.0-4.8) k/uL Monocytes # 0.3 (0-1.0) k/uL Eosinophils # 0.1 (0-0.7) k/uL Basophils # 0.0 (0-0.2) k/uL Hypochromasia Marked Anisocytosis Moderate Macrocytosis Slight PT (9.0-12.0) sec INR (<1.2) APTT (22.0-30.0) sec Sodium 138 (137-145) mmol/L Potassium 4.4 (3.5-5.1) mmol/L Chloride 96 L (98-107) mmol/L Carbon Dioxide 25 (22-30) mmol/L Anion Gap 17 mmol/L BUN 29 H (7-17) mg/dL Creatinine 6.39 H* (0.52-1.04) mg/dL Est GFR (MDRD) Af Amer 8 (>60 ml/min/1.73 sqM) Est GFR (MDRD) Non-Af 7 (>60 ml/min/1.73 sqM) Glucose 467 H* (74-99) mg/dL POC Glucose (mg/dL) (75-99) mg/dL POC Glu Senior Net Engineer ID Calcium 9.7 (8.4-10.2) mg/dL Magnesium 2.6 H (1.6-2.3) mg/dL Total Bilirubin 0.5 (0.2-1.3) mg/dL AST 18 (14-36) U/L ALT 25 (9-52) U/L Alkaline Phosphatase 90 (38-126) U/L Total Creatine Kinase 44 (30-135) U/L CK-MB (CK-2) 0.9 (0.0-2.4) ng/mL CK-MB (CK-2) Rel Index 2.0 Troponin I 0.027 (0.000-0.034) ng/mL NT-Pro-B Natriuret Pep pg/mL Total Protein 7.3 (6.3-8.2) g/dL Albumin 4.2 (3.5-5.0) g/dL 10/30/16 10/30/16 10/30/16 Range/Units 08:45 08:45 09:57 WBC (3.8-10.6) k/uL RBC (3.80-5.40) m/uL Hgb (11.4-16.0) gm/dL Hct (34.0-46.0) % MCV (80.0-100.0) fL MCH (25.0-35.0) pg MCHC (31.0-37.0) g/dL RDW (11.5-15.5) % Plt Count (150-450) k/uL Neutrophils % % Lymphocytes % % Monocytes % % Eosinophils % % Basophils % % Neutrophils # (1.3-7.7) k/uL Lymphocytes # (1.0-4.8) k/uL Monocytes # (0-1.0) k/uL Eosinophils # (0-0.7) k/uL Basophils # (0-0.2) k/uL Hypochromasia Anisocytosis Macrocytosis PT 9.7 (9.0-12.0) sec INR 0.9 (<1.2) APTT 22.2 (22.0-30.0) sec Sodium (137-145) mmol/L Potassium (3.5-5.1) mmol/L Chloride (98-107) mmol/L Carbon Dioxide (22-30) mmol/L Anion Gap mmol/L BUN (7-17) mg/dL Creatinine (0.52-1.04) mg/dL Est GFR (MDRD) Af Amer (>60 ml/min/1.73 sqM) Est GFR (MDRD) Non-Af (>60 ml/min/1.73 sqM) Glucose (74-99) mg/dL POC Glucose (mg/dL) 333 H (75-99) mg/dL POC Glu Senior Net Engineer ID [place] Calcium (8.4-10.2) mg/dL Magnesium (1.6-2.3) mg/dL Total Bilirubin (0.2-1.3) mg/dL AST (14-36) U/L ALT (9-52) U/L Alkaline Phosphatase (38-126) U/L Total Creatine Kinase (30-135) U/L CK-MB (CK-2) (0.0-2.4) ng/mL CK-MB (CK-2) Rel Index Troponin I (0.000-0.034) ng/mL NT-Pro-B Natriuret Pep 97453 pg/mL Total Protein (6.3-8.2) g/dL Albumin (3.5-5.0) g/dL Critical Care Time Critical Care Time: Yes Total Critical Care Time: 35 Disposition Clinical Impression: Acute pulmonary edema Disposition: ADMITTED IP TO THIS HOSP Referrals: Ramiro Sethi MD [Primary Care Provider] - 1-2 days Time of Disposition: 11:21
[2016-10-30 09:15] LABS: Anisocytosis Moderate; Basophils % (A) 0 %; CH 29.5; CHCM 30.2; Eosinophils # (A) 0.1 k/uL (0-0.7); Eosinophils % (A) 2 %; HCT 38.8 % (34.0-46.0); HDW 3.11; Hypochromasia Marked; Luc # (Auto) 0.14; Luc % (Auto) 2; Lymphocytes # (A) 1.2 k/uL (1.0-4.8); Lymphocytes % (A) 20 %; MCH 30.3 pg (25.0-35.0); MCHC 30.9 g/dL (31.0-37.0); Macrocytosis Slight; Mean Platelet Volume 7.5; Monocytes # (A) 0.3 k/uL (0-1.0); Monocytes % (A) 5 %; Neutrophils # (A) 4.3 k/uL (1.3-7.7); Neutrophils % (A) 70 %; RBC 3.96 m/uL (3.80-5.40); RDW 20.5 % (11.5-15.5); WBC 6.2 k/uL (3.8-10.6)
[2016-10-30 09:21] LABS: Calcium 9.7 mg/dL (8.4-10.2); Magnesium 2.6 mg/dL (1.6-2.3); Potassium 4.4 mmol/L (3.5-5.1); Total Bilirubin 0.5 mg/dL (0.2-1.3); Total Protein 7.3 g/dL (6.3-8.2)
[2016-10-30 09:26] LABS: INR 0.9 (<1.2); Partial Thromboplastin Time 22.2 sec (22.0-30.0); Prothrombin Time 9.7 sec (9.0-12.0)
--- NOTE | 2016-10-30 09:32 | XR ---
EXAMINATION TYPE: XR chest 2V DATE OF EXAM: 10/30/2016 COMPARISON: 09/09/2016 HISTORY: 56 year-old female shortness of breath, difficulty breathing, dialysis yesterday. TECHNIQUE: AP and lateral views FINDINGS: The heart is borderline enlarged. At the cephalic arch calcifications. A left axillary vessel stent i s present. Diffuse interstitial and vascular prominence. No pleural effusion. IMPRESSION: Correlate for fluid overload with pulmonary vascular congestion.
[2016-10-30 09:51] LABS: Creatine Kinase MB 0.9 ng/mL (0.0-2.4); Troponin I 0.027 ng/mL (0.000-0.034)
[2016-10-30 09:59] LABS: Glucose,Whole Blood 333 mg/dL (75-99)
[2016-10-30] MEDS ORDERED: ALPRAZolam 0.25 MG TAB PO PRN (11:48)
--- NOTE | 2016-10-30 12:10 | P.NPCON ---
History of Present Illness - Reason for Consult end stage renal disease - History of Present Illness Reason for consultation: End-stage renal disease History of present illness: Patient is a 56-year-old female seen in renal consultation for end-stage renal disease. She is maintained on hemodialysis on a Thursday schedule. Patient has history of coronary artery disease with recent intervention. Patient presented to the hospital with dyspnea. Patient states she underwent hemodialysis yesterday with what 1 L ultrafiltration. She went home and was feeling fine. She was doing some work outside and when she came back and had a half a bottle of water she became dyspneic. She also complains of chest pain this morning. Does admit to diaphoresis. No vomiting but does feel nauseous. Hemodynamically she is stable. Denies fever or chills. No syncopal episodes. Her chest x-ray was suggestive of vascular congestion. Vital signs are stable. General: The patient appeared well nourished and normally developed. HEENT: Head exam is unremarkable. Neck is without jugular venous distension. LUNGS: Lungs are clear to auscultation and percussion. Breath sounds decreased. HEART: Rate and Rhythm are regular. First and second heart sounds normal. No murmurs, rubs or gallops. ABDOMEN: Abdominal exam reveals normal bowel sounds. Non-tender and non- distended. No evidence of peritonitis. EXTREMITITES: No clubbing, cyanosis, or edema. Past Medical History Past Medical History: Coronary Artery Disease (CAD), CVA/TIA, Diabetes Mellitus , GERD/Reflux, GI Bleed, Hyperlipidemia, Osteoarthritis (OA), Pneumonia, Renal Disease, Vascular Disorder Additional Past Medical History / Comment(s): Coronary artery disease, preserved LV function with an ejection fraction of 55% and moderate degree of MR , End stage renal failure with hemodialysis MWF, CVA 2007 with some peripheral vision problems R eye, lower GI bleed, PAD, DJD, diverticulosis, peripheral neuropathy bilateral feet, pancreatitis, See Dr Calixto H &P, History of Any Multi-Drug Resistant Organisms: None Reported Past Surgical History: Cholecystectomy, Heart Catheterization With Stent, Hysterectomy Additional Past Surgical History / Comment(s): L upper arm for dialysis, 3 Cardiac stents, on stent rt leg, colonoscopies , bilateral cataract removal, laser sx bilateral eyes for retinopathy, D&C, left axillary I&D Past Anesthesia/Blood Transfusion Reactions: Motion Sickness, Postoperative Nausea & Vomiting (PONV) Additional Past Anesthesia/Blood Transfusion Reaction / Comment(s): Pt has received blood in the past without reaction. Date of Last Stent Placement:: 09/22/13 Past Psychological History: No Psychological Hx Reported Smoking Status: Former smoker Past Alcohol Use History: Occasional Past Drug Use History: None Reported - Past Family History Mother Family Medical History: No Reported History Additional Family Medical History / Comment(s): Mother is 75 yrs old. Father Family Medical History: Diabetes Mellitus Additional Family Medical History / Comment(s): Father at the age of 42 yrs -pt did not discuss cause of . Medications and Allergies Home Medications Medication Instructions Recorded Confirmed Type Furosemide [Lasix] 80 mg PO BID 09/17/13 10/30/16 History Albuterol Inhaler [Ventolin Hfa 1 puff INHALATION RT-BID 02/12/16 10/30/16 History Inhaler] Atorvastatin [Lipitor] 40 mg PO HS 07/16/16 10/30/16 History Insulin Aspart [NovoLOG Flexpen] See Protocol SQ AC-TID 07/16/16 10/30/16 History Metoprolol Tartrate [Lopressor] 50 mg PO DAILY 07/16/16 10/30/16 History ALPRAZolam [Xanax] 0.25 mg PO HS PRN 07/29/16 10/30/16 History Aspirin EC [Ecotrin Low Dose] 81 mg PO DAILY 10/30/16 10/30/16 History Folic Acid-Vit B Complex-Vit C 1 cap PO DAILY 10/30/16 10/30/16 History [Nephrocaps] Insulin Glargine,Hum.rec.anlog 38 units SQ HS 10/30/16 10/30/16 History [Toujeo Solostar] Nitroglycerin Sl Tabs [Nitrostat] 0.4 mg SUBLINGUAL Q5M PRN 10/30/16 10/30/16 History Sevelamer [Renvela] 2,400 mg PO AC-TID 10/30/16 10/30/16 History amLODIPine [Norvasc] 5 mg PO DAILY 10/30/16 10/30/16 History Allergies Allergy/AdvReac Type Severity Reaction Status Date / Time clonidine Allergy Anaphylaxis Verified 10/30/16 09:25 Iodinated Contrast- Oral and Allergy Anaphylaxis Verified 10/30/16 09:25 IV Dye iodine Allergy Anaphylaxis Verified 10/30/16 09:25 Penicillins Allergy Rash/Hives Verified 10/30/16 09:25 shellfish derived Allergy Anaphylaxis Verified 10/30/16 09:25 Physical Exam Vitals: Vital Signs Temp Pulse Resp BP Pulse Ox 10/30/16 11:25 86 23 149/66 10/30/16 09:32 98.0 F 90 29 H 124/60 98 10/30/16 08:56 96 29 H 189/81 97 10/30/16 08:20 98 F 103 H 22 243/112 81 L 10/30/16 08:19 24 245/119 98 Intake and Output 10/29/16 10/30/16 10/30/16 22:59 06:59 14:59 Other: Weight 72.121 kg Patient Weight 10/31/16 06:59 Weight 72.121 kg Results - Lab Results Most recent lab results Calcium 9.7 mg/dL (8.4-10.2) 10/30/16 08:45 Magnesium 2.6 mg/dL (1.6-2.3) H 10/30/16 08:45 10/30/16 08:45 10/30/16 08:45 Assessment and Plan Plan: Assessment: #1. End-stage renal disease maintained on hemodialysis on a Thursday schedule. #2. Volume overload. #3. Insulin-dependent diabetes mellitus. #4. Chronic kidney disease mineral bone disease. #5. Hypertension with chronic kidney disease. Now better controlled. Plan: Hemodialysis today with goal 2 liters ultrafiltration. Hemodialysis again tomorrow per her outpatient schedule. Maintain Renvela with meals. Await cardiology recommendations. Thank you for the consultation. I will continue to follow the patient with you during her hospital stay.
[2016-10-30] MEDS ORDERED: SEVELAMER 800 MG TAB PO SCH ×2 (12:30)
[2016-10-30 12:42] LABS: Hemoglobin A1C 9.3 % (4.2-6.1)
[2016-10-30 13:15] LABS: Glucose,Whole Blood 262 mg/dL (75-99)
[2016-10-30] MEDS: ASPIRIN 81 MG CHEW PO SCH (13:24)
[2016-10-30] MEDS: METOPROLOL TARTRATE 50 MG TAB PO SCH (13:24)
[2016-10-30] MEDS: FOLIC ACID-VIT B COMPLEX-VIT C 1 CAP PO SCH (13:24)
[2016-10-30] MEDS: amLODIPine 5 MG TAB PO SCH (13:24)
[2016-10-30] MEDS: CLOPIDOGREL 75 MG TAB PO SCH (13:25)
[2016-10-30] MEDS: INSULIN LISPRO (humaLOG) 300 UNIT/3 ML VIAL SQ SCH ×3 (13:25→21:03)
[2016-10-30] MEDS: SEVELAMER 800 MG TAB PO SCH ×2 (13:26→17:46)
[2016-10-30] MEDS: NITROGLYCERIN OINT 1 INCH/GM PACKET TOPICAL SCH ×3 (15:00→21:04)
[2016-10-30] MEDS ORDERED: HYDROcodone/APAP 5-325MG 1 EACH TAB PO PRN (16:09)
[2016-10-30] MEDS ORDERED: NITROGLYCERIN SL TABS 0.4 MG TAB SUBLINGUAL PRN (16:09)
[2016-10-30] MEDS ORDERED: hydrALAZINE HCL 20 MG/ML 1 ML VIAL IVP PRN (16:09)
[2016-10-30 16:43] LABS: Glucose,Whole Blood 177 mg/dL (75-99)
[2016-10-30] MEDS: FUROSEMIDE 10 MG/ML 10 ML VIAL IV SCH (17:46)
[2016-10-30] MEDS: ALBUTEROL NEBULIZED 2.5 MG/3 ML INHALATION SCH (20:15)
[2016-10-30 20:49] LABS: Glucose,Whole Blood 231 mg/dL (75-99)
[2016-10-30] MEDS: INSULIN GLARGINE 100 UNIT/ML 10 ML VIAL SQ SCH (21:03)
[2016-10-30] MEDS: ATORVASTATIN 40 MG TAB PO SCH (21:03)
--- NOTE | 2016-10-30 21:24 | HP ---
DATE OF ADMISSION: 10/30/2016 CHIEF COMPLAINT: Shortness of breath. HISTORY OF PRESENT ILLNESS: This 56-year-old woman with a past medical history of multiple medical problems, including chronic renal failure, history of CAD, history of GERD, diabetes mellitus, type 2, being followed by Dr. Sethi in the outpatient setting, had hemodialysis yesterday. The patient woke up this morning with significant shortness of breath. Her blood pressure was also elevated. She has not taken Lasix today. She is apparently taking Lasix 80 twice daily. Because of increased difficulty, the patient came to [facility] and was admitted for further evaluation and treatment. She had features of CHF. Her ejection fraction was found to be 40% to 45% on a previous admission. Cardiology and nephrology evaluations are in progress at this time. PAST MEDICAL HISTORY: 1. History of chronic kidney disease. 2. History of diabetes mellitus. 3. GI bleed. 4. History of DJD. HOME MEDICATIONS: 1. Renvela 2.4 before meals t.i.d. 2. Norvasc 5 mg p.o. daily. 3. Nitrostat 0.4 p.r.n. 4. Lopressor 50 mg p.o. daily. 5. NovoLog scale. 6. Toujeo 38 units subcutaneously at bedtime. 7. Lasix 80 mg p.o. b.i.d. 8. Nephrocaps 1 p.o. daily. 9. Plavix 75 mg p.o. daily. 10. Lipitor 40 mg at bedtime. 11. Ecotrin 81 mg daily. 12. Ventolin 1 puff b.i.d. 13. Xanax 0.25 at bedtime p.r.n. ALLERGIES: 1. CLONIDINE. 2. IODINATED CONTRAST DYE. 3. PENICILLIN. 4. SHELLFISH. FAMILY HISTORY: No history of heart disease or strokes in the family. SOCIAL HISTORY: Previous history of smoking. Occasional alcohol intake. REVIEW OF SYSTEMS: ENT: No diminished hearing. No diminished vision. CARVIOVASCULAR SYSTEM: As mentioned earlier. RESPIRATORY SYSTEM: As mentioned earlier. GI: No nausea, vomiting. : As mentioned earlier. NERVOUS SYSTEM: No numbness, weakness. ALLERGY/IMMUNOLOGY: No asthma, hayfever. MUSCULOSKELETAL: As mentioned earlier. HEMATOLOGY/ONCOLOGY: No history of anemia. ENDOCRINE: No history of diabetes, hypothyroidism. CONSTITUTIONAL: As mentioned earlier. DERMATOLOGY: Negative. RHEUMATOLOGY: Negative. PSYCHIATRY: As mentioned earlier. PHYSICAL EXAM: Patient is alert and oriented x3. Pulse is 90, blood pressure 124 /60, respiration 29, temperature 98 degrees, pulse ox 98% on 5 L. HEENT: Conjunctivae normal. Oral mucosa moist. NECK: No jugular venous distention. No carotid bruit. No lymph node enlargement. CARDIOVASCULAR: S1, S2 muffled. Ejection systolic murmur. No S3. No S4. RESPIRATORY: Breath sounds diminished at the bases. A few scattered rhonchi and crackles. ABDOMEN: Soft. Non-tender. No mass palpable. LEGS: No edema. No swelling. NERVOUS SYSTEM: Higher functions as mentioned earlier. Moves all 4 limbs. No focal motor or sensory deficit. LYMPHATICS: No lymph node palpable in neck, axillae or groin. SKIN: No ulcer, rash, bleeding. LABS: CBC within normal limits. INR is 0.9. Sodium 138, potassium 4.4. Creatinine is 6.39. Glucose 467. ASSESSMENT: 1. Congestive heart failure, acute exacerbation, with acute and chronic systolic dysfunction, ejection fraction 40% to 45%. 2. Chronic kidney disease, stage V, on hemodialysis. 3. Diabetes mellitus, type 2. 4. History of gastrointestinal bleed. 5. History of hypertension. 6. Hyperlipidemia. RECOMMENDATIONS AND DISCUSSION: In this 56-year-old woman who presented with multiple complex medical issues, we will monitor the patient closely, continue the current medications, continue with symptomatic treatment. Otherwise, I would recommend continuing the hemodialysis. Cardiology and nephrology consultations. I would recommend resuming the home medications. DVT prophylaxis. Symptomatic treatment. Further recommendations to follow. A copy of this dictation is being forwarded to Dr. Sethi, who is the primary physician. ALFRED
[2016-10-30 23:01] LABS: Glucose,Whole Blood 211 mg/dL (75-99)
[2016-10-30] MEDS: TEMAZEPAM 15 MG CAP PO PRN (23:05)
[2016-10-30] MEDS: HEPARIN SODIUM,PORCINE 5,000 UNIT/ML 1 ML VIAL SQ SCH (23:09)
[2016-10-31] MEDS: FUROSEMIDE 10 MG/ML 10 ML VIAL IV SCH ×4 (02:16→22:30)
[2016-10-31 05:56] LABS: Anisocytosis Moderate; Basophils % (A) 1 %; CH 30.5; CHCM 31.3; Eosinophils # (A) 0.2 k/uL (0-0.7); Eosinophils % (A) 4 %; HDW 3.11; HGB 10.8 gm/dL (11.4-16.0); Hypochromasia Moderate; Luc # (Auto) 0.12; Luc % (Auto) 3; Lymphocytes # (A) 0.9 k/uL (1.0-4.8); Lymphocytes % (A) 20 %; MCHC 30.8 g/dL (31.0-37.0); MCV 97.6 fL (80.0-100.0); Macrocytosis Moderate; Mean Platelet Volume 7.9; Monocytes # (A) 0.3 k/uL (0-1.0); Monocytes % (A) 6 %; Neutrophils # (A) 3.1 k/uL (1.3-7.7); Neutrophils % (A) 68 %; RBC 3.59 m/uL (3.80-5.40); RDW 21.6 % (11.5-15.5); WBC 4.6 k/uL (3.8-10.6); WBC (Perox) 4.94
[2016-10-31 06:10] LABS: Glucose,Whole Blood 103 mg/dL (75-99)
[2016-10-31] MEDS: INSULIN LISPRO (humaLOG) 300 UNIT/3 ML VIAL SQ SCH ×4 (06:12→22:32)
[2016-10-31 06:13] LABS: Calcium 9.2 mg/dL (8.4-10.2); Potassium 3.9 mmol/L (3.5-5.1)
[2016-10-31] MEDS: SEVELAMER 800 MG TAB PO SCH ×3 (06:13→17:34)
[2016-10-31] MEDS: ALBUTEROL NEBULIZED 2.5 MG/3 ML INHALATION SCH ×2 (07:58→20:32)
[2016-10-31] MEDS: ASPIRIN 81 MG CHEW PO SCH (08:32)
[2016-10-31] MEDS: CLOPIDOGREL 75 MG TAB PO SCH (08:32)
[2016-10-31] MEDS: HEPARIN SODIUM,PORCINE 5,000 UNIT/ML 1 ML VIAL SQ SCH ×2 (08:32→22:27)
[2016-10-31] MEDS: NITROGLYCERIN OINT 1 INCH/GM PACKET TOPICAL SCH ×4 (08:34→22:28)
[2016-10-31] MEDS: FOLIC ACID-VIT B COMPLEX-VIT C 1 CAP PO SCH (08:34)
[2016-10-31] MEDS: amLODIPine 5 MG TAB PO SCH (08:34)
[2016-10-31] MEDS: METOPROLOL TARTRATE 50 MG TAB PO SCH (08:34)
--- NOTE | 2016-10-31 10:45 | P.PN ---
Subjective Patient is seen in follow-up for end-stage renal disease. She is maintained on hemodialysis on a Thursday schedule. Patient presented with chest discomfort and dyspnea. Her chest x-ray was suggestive of fluid overload. She does have history of coronary disease with recent interventions. She underwent hemodialysis yesterday with about 1 L ultrafiltration. She feels better today. Chest pain is resolved. She is ambulating. She is not requiring oxygen support. Hemodynamically stable. Vital signs are stable. General: The patient appeared well nourished and normally developed. HEENT: Head exam is unremarkable. Neck is without jugular venous distension. LUNGS: Lungs are clear to auscultation and percussion. Breath sounds decreased. HEART: Rate and Rhythm are regular. First and second heart sounds normal. No murmurs, rubs or gallops. ABDOMEN: Abdominal exam reveals normal bowel sounds. Non-tender and non- distended. No evidence of peritonitis. EXTREMITITES: No clubbing, cyanosis, or edema. Objective - Vital Signs Vital signs: Vital Signs Temp 97.3 F L 10/30/16 19:54 Pulse 84 10/31/16 08:11 Resp 16 10/31/16 08:00 BP 163/69 10/31/16 08:00 Pulse Ox 95 10/31/16 08:00 Intake & Output 10/30/16 10/31/16 10/31/16 18:59 06:59 18:59 Intake Total 200 0 Balance 200 0 Weight 72.121 kg 67.8 kg Intake: Oral 200 0 - Labs CBC & Chem 7: 10/31/16 05:27 10/31/16 05:27 Labs: Abnormal Lab Results - Last 24 Hours (Table) 10/30/16 10/30/16 10/30/16 Range/Units 08:45 13:13 16:40 RBC (3.80-5.40) m/uL Hgb (11.4-16.0) gm/dL MCHC (31.0-37.0) g/dL RDW (11.5-15.5) % Lymphocytes # (1.0-4.8) k/uL BUN (7-17) mg/dL Creatinine (0.52-1.04) mg/dL POC Glucose (mg/dL) 262 H 177 H (75-99) mg/dL Hemoglobin A1c 9.3 H (4.2-6.1) % 10/30/16 10/30/16 10/31/16 Range/Units 20:47 22:57 05:27 RBC 3.59 L (3.80-5.40) m/uL Hgb 10.8 L (11.4-16.0) gm/dL MCHC 30.8 L (31.0-37.0) g/dL RDW 21.6 H (11.5-15.5) % Lymphocytes # 0.9 L (1.0-4.8) k/uL BUN (7-17) mg/dL Creatinine (0.52-1.04) mg/dL POC Glucose (mg/dL) 231 H 211 H (75-99) mg/dL Hemoglobin A1c (4.2-6.1) % 10/31/16 10/31/16 Range/Units 05:27 06:08 RBC (3.80-5.40) m/uL Hgb (11.4-16.0) gm/dL MCHC (31.0-37.0) g/dL RDW (11.5-15.5) % Lymphocytes # (1.0-4.8) k/uL BUN 26 H (7-17) mg/dL Creatinine 5.55 H* (0.52-1.04) mg/dL POC Glucose (mg/dL) 103 H (75-99) mg/dL Hemoglobin A1c (4.2-6.1) % Assessment and Plan Plan: Assessment: #1. End-stage renal disease maintained on hemodialysis on a Thursday schedule. #2. Volume overload. Improved. #3. Insulin-dependent diabetes mellitus. #4. Chronic kidney disease mineral bone disease. #5. Hypertension with chronic kidney disease. #6. Systolic CHF with ejection fraction of 40-45%. Now appears compensated. Plan: Hemodialysis today with goal 2 liters ultrafiltration. Maintain Renvela with meals. Await cardiology recommendations. Potential discharge today if cleared by cardiology. I advised her to follow a low-salt diet. Patient states she did have an [employer] burger on the day of admission.
[2016-10-31 11:25] LABS: Glucose,Whole Blood 312 mg/dL (75-99)
--- NOTE | 2016-10-31 12:13 | P.CRDCN ---
History of Present Illness Consult date: 10/31/16 Reason for Consult (text): Acute Pulmonary Edema Chief complaint: shortness of breath History of present illness: This is a pleasant 56-year-old -[place]ian male patient who follows regularly with Dr. Calixto in the office. Has a history significant for coronary artery disease, prior stenting of the RCA, end-stage renal disease on hemodialysis, hypertension, dyslipidemia, diastolic congestive heart failure with successful balloon angioplasty of the ramus intermedius and attempted PTCA of the RCA in July 2016. Patient was admitted to the hospital after presenting with complaints of suddenly worsening shortness of breath or intracranial the patient she underwent dialysis on Thursday and following that ate a sandwich from [employer]. The next morning she complained of shortness of breath and presented to the emergency department. Chest x-ray showed fluid overload with pulmonary vascular congestion and her BNP was elevated at 60,500. Troponin was negative at 0.027. She did have a recent echocardiogram done in the office that showed borderline normal systolic function with ejection fraction of 50-55% , hypokinesis of the inferior wall the base, grade 3 diastolic dysfunction, moderate to severe MR and mild to moderate TR. Patient was dialyzed yesterday for 2 L and is feeling significantly better today. She is on Lasix 80 mg IV push every 8 hours. She is anticipating dialysis again today. Past Medical History Past Medical History: Coronary Artery Disease (CAD), CVA/TIA, Diabetes Mellitus , GERD/Reflux, GI Bleed, Hyperlipidemia, Osteoarthritis (OA), Pneumonia, Renal Disease, Vascular Disorder Additional Past Medical History / Comment(s): Coronary artery disease, preserved LV function with an ejection fraction of 55% and moderate degree of MR , IDDM type II, End stage renal failure with hemodialysis MWF-on kidney transplant list thru [facility], CVA 2007 with some peripheral vision problems R eye and R ear [place], lower GI bleed, PAD, DJD, diverticulosis, pancreatitis, bronchitis, TMJ, sinus problems at times, UTIs, benign polypectomies, anemia. History of Any Multi-Drug Resistant Organisms: None Reported Past Surgical History: Cholecystectomy, Heart Catheterization With Stent, Hysterectomy Additional Past Surgical History / Comment(s): L upper arm for dialysis cath, 3 Cardiac stents, one stent rt leg, EGD/colonoscopies/benign polypectomies , bilateral cataract removal, laser sx bilateral eyes for retinopathy, D&C, left axillary I&D Past Anesthesia/Blood Transfusion Reactions: Motion Sickness, Postoperative Nausea & Vomiting (PONV) Additional Past Anesthesia/Blood Transfusion Reaction / Comment(s): Pt has received blood in the past without reaction. Date of Last Stent Placement:: 09/22/13 Smoking Status: Former smoker - Past Family History Mother Family Medical History: No Reported History Additional Family Medical History / Comment(s): Mother is 76 yrs old. Father Family Medical History: Diabetes Mellitus Additional Family Medical History / Comment(s): Father at the age of 42yrs- pt does not know reason. Medications and Allergies Home Medications Medication Instructions Recorded Confirmed Type Furosemide [Lasix] 80 mg PO BID 09/17/13 10/30/16 History Albuterol Inhaler [Ventolin Hfa 1 puff INHALATION RT-BID 02/12/16 10/30/16 History Inhaler] Atorvastatin [Lipitor] 40 mg PO HS 07/16/16 10/30/16 History Insulin Aspart [NovoLOG Flexpen] See Protocol SQ AC-TID 07/16/16 10/30/16 History Metoprolol Tartrate [Lopressor] 50 mg PO DAILY 07/16/16 10/30/16 History ALPRAZolam [Xanax] 0.25 mg PO HS PRN 07/29/16 10/30/16 History Aspirin EC [Ecotrin Low Dose] 81 mg PO DAILY 10/30/16 10/30/16 History Folic Acid-Vit B Complex-Vit C 1 cap PO DAILY 10/30/16 10/30/16 History [Nephrocaps] Insulin Glargine,Hum.rec.anlog 38 units SQ HS 10/30/16 10/30/16 History [Toujeo Solostar] Nitroglycerin Sl Tabs [Nitrostat] 0.4 mg SUBLINGUAL Q5M PRN 10/30/16 10/30/16 History Sevelamer [Renvela] 2,400 mg PO AC-TID 10/30/16 10/30/16 History amLODIPine [Norvasc] 5 mg PO DAILY 10/30/16 10/30/16 History Allergies Allergy/AdvReac Type Severity Reaction Status Date / Time clonidine Allergy Anaphylaxis Verified 10/30/16 09:25 Iodinated Contrast- Oral and Allergy Anaphylaxis Verified 10/30/16 09:25 IV Dye iodine Allergy Anaphylaxis Verified 10/30/16 09:25 Penicillins Allergy Rash/Hives Verified 10/30/16 09:25 shellfish derived Allergy Anaphylaxis Verified 10/30/16 09:25 Physical Exam Vitals: Vital Signs Temp Pulse Pulse Resp BP BP Pulse Ox 10/31/16 08:11 84 10/31/16 08:00 80 16 163/69 95 10/31/16 07:59 84 10/31/16 04:00 84 16 165/84 99 10/31/16 00:00 74 18 154/76 96 10/30/16 20:25 88 10/30/16 20:17 89 10/30/16 19:54 97.3 F L 77 18 160/67 97 10/30/16 19:50 18 10/30/16 15:20 97.0 F L 78 18 158/77 99 10/30/16 12:40 97.4 F L 87 18 168/72 91 L 10/30/16 12:18 97.8 F 85 18 136/62 98 Intake and Output 10/30/16 10/31/16 10/31/16 22:59 06:59 14:59 Intake Total 0 0 Balance 0 0 Intake: Oral 0 0 Other: Weight 67.8 kg PHYSICAL EXAMINATION: HEENT: Head is atraumatic, normocephalic. Pupils equal, round. Neck is supple. There is no elevated jugular venous pressure. HEART EXAMINATION: Heart sounds regular, S1 and S2 normal with a systolic murmur. CHEST EXAMINATION: Lungs reveal bibasilar crackles. No chest wall tenderness is noted on palpation or with deep breathing. ABDOMEN: Soft, nontender. Bowel sounds are heard. No organomegaly noted. EXTREMITIES: 2+ peripheral pulses with no evidence of peripheral edema and no calf tenderness noted. NEUROLOGIC patient is awake, alert and oriented x3. . Results 10/31/16 05:27 10/31/16 05:27 CBC 10/31/16 Range/Units 05:27 WBC 4.6 (3.8-10.6) k/uL RBC 3.59 L (3.80-5.40) m/uL Hgb 10.8 L (11.4-16.0) gm/dL Hct 35.0 (34.0-46.0) % Plt Count 280 (150-450) k/uL Comprehensive Metabolic Panel 10/31/16 Range/Units 05:27 Sodium 137 (137-145) mmol/L Potassium 3.9 (3.5-5.1) mmol/L Chloride 98 (98-107) mmol/L Carbon Dioxide 26 (22-30) mmol/L BUN 26 H (7-17) mg/dL Creatinine 5.55 H* (0.52-1.04) mg/dL Glucose 91 (74-99) mg/dL Calcium 9.2 (8.4-10.2) mg/dL Current Medications Generic Name Dose Route Start Last Admin Trade Name Freq PRN Reason Stop Dose Admin Hydrocodone Bitart/Acetaminophen 1 each 10/30/16 16:09 10/30/16 19:42 Nephi 5-325 PO 1 each Q6HR PRN Administration Pain Albuterol Sulfate 2.5 mg 10/30/16 20:00 10/31/16 07:58 Ventolin Nebulized INHALATION 2.5 mg RT-BID NYA Administration Alprazolam 0.25 mg 10/30/16 11:48 Xanax PO HS PRN sleep Amlodipine Besylate 5 mg 10/30/16 12:00 10/31/16 08:34 Norvasc PO 5 mg DAILY NYA Administration Aspirin 81 mg 10/30/16 12:00 10/31/16 08:32 Aspirin PO 81 mg DAILY NYA Administration Atorvastatin Calcium 40 mg 10/30/16 21:00 10/30/16 21:03 Lipitor PO 40 mg HS NYA Administration Clopidogrel Bisulfate 75 mg 10/30/16 12:00 10/31/16 08:32 Plavix PO 75 mg DAILY NYA Administration Furosemide 80 mg 10/31/16 16:00 Lasix IV Q8HR [facility] Heparin Sodium (Porcine) 5,000 unit 10/30/16 21:00 10/31/16 08:32 Heparin SQ 5,000 unit Q12HR NYA Administration Hydralazine HCl 10 mg 10/30/16 16:09 Apresoline IVP Q4HR PRN Blood Pressure - High Insulin Glargine 38 unit 10/30/16 21:00 10/30/16 21:03 Lantus SQ 38 unit HS NYA Administration Insulin Human Lispro 0 unit 10/30/16 12:30 10/31/16 06:12 Humalog SQ Not Given ACHS [facility] Protocol Metoprolol Tartrate 50 mg 10/30/16 12:00 10/31/16 08:34 Lopressor PO 50 mg DAILY NYA Administration Multivit/Ca Carb/B Cmplx/FA/Prenat 1 each 10/30/16 12:00 10/31/16 08:34 Nephrocaps PO 1 each DAILY NYA Administration Nitroglycerin 1 inch 10/30/16 13:00 10/31/16 08:34 Nitro-Bid Oint TOPICAL 1 inch QID NYA Administration Nitroglycerin 0.4 mg 10/30/16 16:09 Nitrostat SUBLINGUAL Q5M PRN Chest Pain Sevelamer Carbonate 2,400 mg 10/30/16 12:30 10/31/16 06:13 Renvela PO 2,400 mg AC-TID NYA Administration Temazepam 15 mg 10/30/16 16:09 10/30/16 23:05 Restoril PO 15 mg HS PRN Administration Insomnia Intake and Output 10/30/16 10/31/16 10/31/16 22:59 06:59 14:59 Intake Total 0 0 Balance 0 0 Intake: Oral 0 0 Other: Weight 67.8 kg 10/31/16 05:27 10/31/16 05:27 EKG Interpretations (text) Sinus tachycardia with occasional PVCs and nonspecific ST-T wave abnormalities Assessment and Plan Plan: Assessment and plan #1 acute on chronic diastolic congestive heart failure #2 moderate to severe mitral regurgitation #3 end-stage renal disease, on hemodialysis #4 hypertension #5 coronary artery disease with prior stenting in RCA and balloon angioplasty to the ramus intermedius 6 hyperlipidemia #7 diabetes From piecer perspective, medications reviewed we will continue the same. We discussed importance of dietary compliance with the patient. Diuretics per nephrology. It is to be the patient will be discharged home in the next 24-48 hours. We will continue to follow the patient and provide further recommendations accordingly. HORSE BREEDER note has been reviewed, I agree with a documented findings and plan of care. Patient was seen and examined.
[2016-10-31 12:16] LABS: Glucose,Whole Blood 329 mg/dL (75-99)
[2016-10-31 14:27] VITALS: BMI 24.8
[2016-10-31 17:06] LABS: Glucose,Whole Blood 188 mg/dL (75-99)
[2016-10-31] MEDS: ATORVASTATIN 40 MG TAB PO SCH (22:28)
[2016-10-31] MEDS: ACETAMINOPHEN TAB 325 MG TAB PO PRN (22:29)
[2016-10-31] MEDS: TEMAZEPAM 15 MG CAP PO PRN (22:29)
[2016-10-31] MEDS: INSULIN GLARGINE 100 UNIT/ML 10 ML VIAL SQ SCH (22:32)
[2016-10-31 22:33] LABS: Glucose,Whole Blood 205 mg/dL (75-99)
[2016-11-01 05:55] LABS: Glucose,Whole Blood 112 mg/dL (75-99)
[2016-11-01 06:05] LABS: Anisocytosis Moderate; Basophils # (A) 0.1 k/uL (0-0.2); Basophils % (A) 1 %; CH 30.3; CHCM 30.9; Eosinophils # (A) 0.2 k/uL (0-0.7); Eosinophils % (A) 4 %; HDW 3.05; HGB 11.8 gm/dL (11.4-16.0); Hypochromasia Moderate; Luc # (Auto) 0.15; Luc % (Auto) 3; Lymphocytes % (A) 19 %; MCH 29.7 pg (25.0-35.0); MCHC 30.2 g/dL (31.0-37.0); MCV 98.3 fL (80.0-100.0); Macrocytosis Moderate; Mean Platelet Volume 7.8; Monocytes # (A) 0.3 k/uL (0-1.0); Monocytes % (A) 6 %; Neutrophils # (A) 3.5 k/uL (1.3-7.7); Neutrophils % (A) 68 %; RBC 3.96 m/uL (3.80-5.40); RDW 21.4 % (11.5-15.5); WBC 5.2 k/uL (3.8-10.6); WBC (Perox) 5.58
[2016-11-01 06:15] LABS: Calcium 10.1 mg/dL (8.4-10.2); Potassium 4.1 mmol/L (3.5-5.1)
[2016-11-01] MEDS: INSULIN LISPRO (humaLOG) 300 UNIT/3 ML VIAL SQ SCH ×2 (06:19→11:55)
[2016-11-01] MEDS: SEVELAMER 800 MG TAB PO SCH ×2 (06:49→11:49)
[2016-11-01] MEDS: NITROGLYCERIN OINT 1 INCH/GM PACKET TOPICAL SCH ×2 (08:52→11:55)
[2016-11-01] MEDS: FOLIC ACID-VIT B COMPLEX-VIT C 1 CAP PO SCH (08:58)
[2016-11-01] MEDS: METOPROLOL TARTRATE 50 MG TAB PO SCH (08:59)
[2016-11-01] MEDS: HEPARIN SODIUM,PORCINE 5,000 UNIT/ML 1 ML VIAL SQ SCH (08:59)
[2016-11-01] MEDS: CLOPIDOGREL 75 MG TAB PO SCH (08:59)
[2016-11-01] MEDS: ASPIRIN 81 MG CHEW PO SCH (08:59)
[2016-11-01] MEDS: FUROSEMIDE 10 MG/ML 10 ML VIAL IV SCH ×2 (08:59→15:35)
[2016-11-01] MEDS: amLODIPine 5 MG TAB PO SCH (08:59)
--- NOTE | 2016-11-01 08:59 | P.PN ---
Subjective This is a 56-year-old female on dialysis Thursday ESRD who came in because of CHF although she gains minimal fluid. She is had coronary artery disease with recent interventions,with successful balloon angioplasty of the ramus intermedius and attempted PTCA of the RCA in July 2016. She was admitted and has been dialyzed 3 days in a row, ultrafiltration of 1 L and 2 L over the last 2 days respectively.. Currently she is asymptomatic, feels she is back to normal but she is very worried about the fact that she went to [facility] again. No nausea vomiting good appetite no dizziness no cough no orthopnea. She is able to walk around. Objective - Vital Signs Vital signs: Vital Signs Temp 97.8 F 11/01/16 04:00 Pulse 86 11/01/16 04:00 Resp 18 11/01/16 04:00 BP 140/63 11/01/16 04:00 Pulse Ox 100 11/01/16 04:00 Intake & Output 10/31/16 11/01/16 11/01/16 18:59 06:59 18:59 Intake Total 480 Balance 480 Weight 67.8 kg 66.9 kg Intake: Oral 480 Other: Voiding Method Toilet On examination she is awake alert oriented HEENT exam no JVP neck is supple no facial asymmetry Lungs are clear to auscultation percussion good air entry bilaterally. Heart sounds are unremarkable no murmur rub gallop. Abdomen is soft nontender no organomegaly status masses Extremity exam was no edema Neurologically awake alert oriented - Labs CBC & Chem 7: 11/01/16 05:45 11/01/16 05:45 Labs: Abnormal Lab Results - Last 24 Hours (Table) 10/31/16 10/31/16 10/31/16 Range/Units 11:20 12:14 17:02 MCHC (31.0-37.0) g/dL RDW (11.5-15.5) % BUN (7-17) mg/dL Creatinine (0.52-1.04) mg/dL Glucose (74-99) mg/dL POC Glucose (mg/dL) 312 H 329 H 188 H (75-99) mg/dL 10/31/16 11/01/16 11/01/16 Range/Units 22:31 05:45 05:45 MCHC 30.2 L (31.0-37.0) g/dL RDW 21.4 H (11.5-15.5) % BUN 22 H (7-17) mg/dL Creatinine 4.77 H (0.52-1.04) mg/dL Glucose 115 H (74-99) mg/dL POC Glucose (mg/dL) 205 H (75-99) mg/dL 11/01/16 Range/Units 05:54 MCHC (31.0-37.0) g/dL RDW (11.5-15.5) % BUN (7-17) mg/dL Creatinine (0.52-1.04) mg/dL Glucose (74-99) mg/dL POC Glucose (mg/dL) 112 H (75-99) mg/dL Assessment and Plan Plan: Impression. 1. ESRD on dialysis Thursday admitted with CHF and has been dialyzed 3 days in a row and is back to normal subjectively and is euvolemic clinically. 2. Coronary artery disease with recent intervention, successful balloon angioplasty of the ramus intermedius and attempted PTCA of the RCA in July 2016. 3. Echocardiogram 09/09/2016 shows ejection fraction 60-65% 4. Blood pressure controlled. 5. Diabetes mellitus. Recommendation. Can be discharged. Patient has been advised to ensure that she follows a 2 g sodium diet and restrict her fluid intake to about 1000 mL per day. Her target weight needs to be reassessed frequently in the dialysis unit so begin prevent her frequent congestive heart failures and hospitalizations.
[2016-11-01 09:12] LABS: Glucose,Whole Blood 139 mg/dL (75-99)
--- NOTE | 2016-11-01 11:30 | P.PN ---
Subjective This is a pleasant 56-year-old -Danish male patient who follows regularly with Dr. Calixto in the office. Has a history significant for coronary artery disease, prior stenting of the RCA, end-stage renal disease on hemodialysis, hypertension, dyslipidemia, diastolic congestive heart failure with successful balloon angioplasty of the ramus intermedius and attempted PTCA of the RCA in July 2016. Patient was admitted to the hospital after presenting with complaints of suddenly worsening shortness of breath or intracranial the patient she underwent dialysis on Thursday and following that ate a sandwich from [employer]. The next morning she complained of shortness of breath and presented to the emergency department. Chest x-ray showed fluid overload with pulmonary vascular congestion and her BNP was elevated at 60,500. Troponin was negative at 0.027. She did have a recent echocardiogram done in the office that showed borderline normal systolic function with ejection fraction of 50-55% , hypokinesis of the inferior wall the base, grade 3 diastolic dysfunction, moderate to severe MR and mild to moderate TR. Patient was dialyzed yesterday for 2 L and is feeling significantly better today. She is on Lasix 80 mg IV push every 8 hours. She is anticipating dialysis again today. 11/01/2016 Patient did undergo dialysis yesterday, her weight is down kilograms today. Diuretic management as per nephrology. Arrangements are being made for possible discharge home today. The patient does have a follow-up appointment to see Dr. Calixto in the office on Thursday which she has been instructed to keep. Objective - Vital Signs Vital signs: Vital Signs Temp 98.3 F 11/01/16 09:09 Pulse 89 11/01/16 09:09 Resp 18 11/01/16 09:09 BP 152/74 11/01/16 09:09 Pulse Ox 99 11/01/16 09:09 Intake & Output 10/31/16 11/01/16 11/01/16 18:59 06:59 18:59 Intake Total 480 Balance 480 Weight 67.8 kg 66.9 kg Intake: Oral 480 Other: Voiding Method Toilet Toilet - Exam PHYSICAL EXAMINATION: HEENT: Head is atraumatic, normocephalic. Pupils equal, round. Neck is supple. There is no elevated jugular venous pressure. HEART EXAMINATION: Heart sounds regular, S1 and S2 normal with a systolic murmur. CHEST EXAMINATION: Lungs reveal bibasilar crackles. No chest wall tenderness is noted on palpation or with deep breathing. ABDOMEN: Soft, nontender. Bowel sounds are heard. No organomegaly noted. EXTREMITIES: 2+ peripheral pulses with no evidence of peripheral edema and no calf tenderness noted. NEUROLOGIC patient is awake, alert and oriented x3. - Labs CBC & Chem 7: 11/01/16 05:45 11/01/16 05:45 Labs: Abnormal Lab Results - Last 24 Hours (Table) 10/31/16 10/31/16 10/31/16 Range/Units 12:14 17:02 22:31 MCHC (31.0-37.0) g/dL RDW (11.5-15.5) % BUN (7-17) mg/dL Creatinine (0.52-1.04) mg/dL Glucose (74-99) mg/dL POC Glucose (mg/dL) 329 H 188 H 205 H (75-99) mg/dL 11/01/16 11/01/16 11/01/16 Range/Units 05:45 05:45 05:54 MCHC 30.2 L (31.0-37.0) g/dL RDW 21.4 H (11.5-15.5) % BUN 22 H (7-17) mg/dL Creatinine 4.77 H (0.52-1.04) mg/dL Glucose 115 H (74-99) mg/dL POC Glucose (mg/dL) 112 H (75-99) mg/dL 11/01/16 Range/Units 09:08 MCHC (31.0-37.0) g/dL RDW (11.5-15.5) % BUN (7-17) mg/dL Creatinine (0.52-1.04) mg/dL Glucose (74-99) mg/dL POC Glucose (mg/dL) 139 H (75-99) mg/dL Assessment and Plan Plan: Assessment and plan #1 acute on chronic diastolic congestive heart failure #2 moderate to severe mitral regurgitation #3 end-stage renal disease, on hemodialysis #4 hypertension #5 coronary artery disease with prior stenting in RCA and balloon angioplasty to the ramus intermedius 6 hyperlipidemia #7 diabetes Plan Cardiology's perspective, the diuretic management as per nephrology. If the patient is discharged home a follow-up appointment is already made with Dr. Calixto on Thursday which she's been instructed to keep. DNP note has been reviewed, I agree with a documented findings and plan of care. Patient was seen and examined.
[2016-11-01] MEDS: ACETAMINOPHEN TAB 325 MG TAB PO PRN (11:47)
[2016-11-01] MEDS: ALBUTEROL NEBULIZED 2.5 MG/3 ML INHALATION SCH (11:56)
[2016-11-01 12:25] LABS: Glucose,Whole Blood 165 mg/dL (75-99)
[2016-11-01 14:44] VITALS: RESP 16
[2016-11-01 16:23] VITALS: BP 176/73; PULSE 88; TEMP 98.3
--- NOTE | 2016-11-02 01:59 | P.DS ---
Providers Date of admission: 10/30/16 11:22 Expected date of discharge: 11/01/16 Attending physician: Tiana Cornell Consults: 10/30/16 11:22 Consult Physician Routine Consulting Provider: [facility] Consult Reason/Comments: Acute pulmonary edema Do you want consulting provider notified?: Yes 10/30/16 11:25 Consult Physician Routine Consulting Provider: Stefania Zhu Consult Reason/Comments: fluid overload Do you want consulting provider notified?: Yes Primary care physician: Jossie Rubio Hospital Course: Discharge diagnosis #1 acute on chronic diastolic congestive heart failure #2 moderate to severe mitral regurgitation #3 end-stage renal disease, on hemodialysis.Thursday. #4 hypertension #5 coronary artery disease with prior stenting in RCA and balloon angioplasty to the ramus intermedius 6 hyperlipidemia #7 diabetes Hospital course This is a pleasant 56-year-old -[place]ol[place] male patient with a history significant for coronary artery disease, prior stenting of the RCA, end-stage renal disease on hemodialysis, hypertension, dyslipidemia, diastolic congestive heart failure with successful balloon angioplasty of the ramus intermedius and attempted PTCA of the RCA in July 2016. Patient was admitted to the hospital after presenting with complaints of suddenly worsening shortness of breath. Patient was diuresed with IV Lasix 80 mg 3 times daily and was dialyzed 3 days in a row, ultrafiltration of 1 L and 2 L over the last 2 days respectively..Currently she is asymptomatic, feels she is back to normal. Patient follows with Dr. Damon at outpatient dialysis center. Patient says that she is compliant with her dialysis schedule. PHYSICAL EXAMINATION: Patient is lying in the bed comfortably, no acute distress, awake alert and oriented.. HEENT: Normocephalic. Neck is supple. Pupils reactive. Nostrils clear. Oral cavity is moist. Ears reveal no drainage. Neck reveals no JVD, carotid bruits, or thyromegaly. CHEST EXAMINATION: Trachea is central. Symmetrical expansion. Lung perez clear to auscultation and percussion. Minimal basilar crackles positive bilaterally. CARDIAC: Normal S1, S2 with no gallops. No murmurs ABDOMEN: Soft. Bowel sounds normal. No organomegaly. No abdominal bruits. Extremities reveal no edema. No clubbing or cyanosis Neurologically awake, alert, oriented x3 with well-coordinated movements. Skin: no rash or skin lesions Musculoskeletal: no joint swelling or deformity. Time taken greater than 35 minutes including 18 minutes for counseling and coordination of care Patient Condition at Discharge: Good Plan - Discharge Summary New Discharge Prescriptions: New Temazepam [Restoril] 15 mg PO HS PRN #15 cap PRN Reason: Insomnia Continue Furosemide [Lasix] 80 mg PO BID Albuterol Inhaler [Ventolin Hfa Inhaler] 1 puff INHALATION RT-BID Clopidogrel [Plavix] 75 mg PO DAILY tab Atorvastatin [Lipitor] 40 mg PO HS Metoprolol Tartrate [Lopressor] 50 mg PO DAILY Insulin Aspart [NovoLOG Flexpen] See Protocol SQ AC-TID ALPRAZolam [Xanax] 0.25 mg PO HS PRN PRN Reason: sleep Sevelamer [Renvela] 2,400 mg PO AC-TID Insulin Glargine,Hum.rec.anlog [Lisset Samuel] 38 units SQ HS amLODIPine [Norvasc] 5 mg PO DAILY Nitroglycerin Sl Tabs [Nitrostat] 0.4 mg SUBLINGUAL Q5M PRN PRN Reason: Chest Pain Folic Acid-Vit B Complex-Vit C [Nephrocaps] 1 cap PO DAILY Aspirin EC [Ecotrin Low Dose] 81 mg PO DAILY Discharge Medication List Furosemide [Lasix] 80 mg PO BID 09/17/13 [History] Albuterol Inhaler [Ventolin Hfa Inhaler] 1 puff INHALATION RT-BID 02/12/16 [ History] Clopidogrel [Plavix] 75 mg PO DAILY tab 02/16/16 [Rx] Atorvastatin [Lipitor] 40 mg PO HS 07/16/16 [History] Insulin Aspart [NovoLOG Flexpen] See Protocol SQ AC-TID 07/16/16 [History] Metoprolol Tartrate [Lopressor] 50 mg PO DAILY 07/16/16 [History] ALPRAZolam [Xanax] 0.25 mg PO HS PRN 07/29/16 [History] Aspirin EC [Ecotrin Low Dose] 81 mg PO DAILY 10/30/16 [History] Folic Acid-Vit B Complex-Vit C [Nephrocaps] 1 cap PO DAILY 10/30/16 [History] Insulin Glargine,Hum.rec.anlog [Lisset Samuel] 38 units SQ HS 10/30/16 [ History] Nitroglycerin Sl Tabs [Nitrostat] 0.4 mg SUBLINGUAL Q5M PRN 10/30/16 [History] Sevelamer [Renvela] 2,400 mg PO AC-TID 10/30/16 [History] amLODIPine [Norvasc] 5 mg PO DAILY 10/30/16 [History] Temazepam [Restoril] 15 mg PO HS PRN #15 cap 11/01/16 [Rx] Follow up Appointment(s)/Referral(s): Denzel Penny MD [STAFF PHYSICIAN] - 1 Week (Keep appointment already scheduled for Thursday with Dr Calixto) Ramiro Sethi MD [Primary Care Provider] - 1-2 days Patient Instructions/Handouts: Pulmonary Edema (DC), Heart Healthy Diet (DC) Discharge Disposition: HOME SELF-CARE
== END 2016-11-01 16:59 | disposition home or self-care (01) | DRG 291 ==
LOC: EC 08:17 → 6SEL 11:22
PROVIDERS: ADMIT Hospitalist; ATTEND Hospitalist
PROC: 5A1D60Z (ICD-10-PCS; principal; 2016-10-30)
DX: I13.2 Hypertensive heart and chronic kidney disease with heart failure and with stage 5 chronic kidney disease, or end stage renal disease (principal); N18.6 End stage renal disease; Z76.82 Awaiting organ transplant status; E11.22 Type 2 diabetes mellitus with diabetic chronic kidney disease; I36.1 Nonrheumatic tricuspid (valve) insufficiency; E11.42 Type 2 diabetes mellitus with diabetic polyneuropathy; I50.33 Acute on chronic diastolic (congestive) heart failure; I34.0 Nonrheumatic mitral (valve) insufficiency; R00.0 Tachycardia, unspecified; I49.3 Ventricular premature depolarization; I25.10 Atherosclerotic heart disease of native coronary artery without angina pectoris; E78.5 Hyperlipidemia, unspecified; E11.319 Type 2 diabetes mellitus with unspecified diabetic retinopathy without macular edema; K21.9 Gastro-esophageal reflux disease without esophagitis; R07.9 Chest pain, unspecified; R61 Generalized hyperhidrosis; I69.398 Other sequelae of cerebral infarction; H53.8 Other visual disturbances; E11.51 Type 2 diabetes mellitus with diabetic peripheral angiopathy without gangrene; H91.91 Unspecified hearing loss, right ear; R11.0 Nausea; M19.90 Unspecified osteoarthritis, unspecified site; K57.90 Diverticulosis of intestine, part unspecified, without perforation or abscess without bleeding; D64.9 Anemia, unspecified; Z79.02 Long term (current) use of antithrombotics/antiplatelets; Z79.4 Long term (current) use of insulin; Z79.899 Other long term (current) drug therapy; Z87.891 Personal history of nicotine dependence; Z83.3 Family history of diabetes mellitus; Z99.2 Dependence on renal dialysis; Z95.5 Presence of coronary angioplasty implant and graft; Z88.8 Allergy status to other drugs, medicaments and biological substances; Z87.19 Personal history of other diseases of the digestive system; Z87.01 Personal history of pneumonia (recurrent); Z86.19 Personal history of other infectious and parasitic diseases; Z91.041 Radiographic dye allergy status; Z88.0 Allergy status to penicillin; Z91.013 Allergy to seafood; Z71.3 Dietary counseling and surveillance; Z79.82 Long term (current) use of aspirin; Z87.39 Personal history of other diseases of the musculoskeletal system and connective tissue; Z98.42 Cataract extraction status, left eye; Z98.41 Cataract extraction status, right eye; Z90.710 Acquired absence of both cervix and uterus; Z90.49 Acquired absence of other specified parts of digestive tract; Z95.820 Peripheral vascular angioplasty status with implants and grafts
CPT/HCPCS: 36415; 71020; 80048; 80053; 82009; 82550; 82553; 83036; 83735; 83880; 84484; 85025; 85610; 85730; 90935; 93005; 94640; 96374; 96375; 99291

== ENCOUNTER 2016-11-26 17:26 | Inpatient (IN) | payer MEDICARE, BC ==
--- NOTE | 2016-11-26 18:00 | ED ---
General Adult HPI - General Chief complaint: Recheck/Abnormal Lab/Rx Stated complaint: Hypotension Time Seen by Provider: 11/26/16 17:35 Source: patient, RN notes reviewed Mode of arrival: ambulatory Limitations: no limitations - History of Present Illness Initial comments: This is a 56-year-old female presents emergency Department with a past medical history significant for stents diabetes and kidney failure. Patient states she went to dialysis today after dialysis she noted that her blood pressure was low and she was feeling a little weak and felt as though her vision was slightly blurred. Patient decided come to the emergency department after having eaten apical. Patient states blood pressure is still low just prior to arrival it was 80 systolic. Patient denies any difficulty breathing or shortness of breath. Patient denies any chest pain. Patient denies abdominal pain patient denies nausea vomiting or diarrhea. Patient denies any recent fever chills per patient denies headache. Patient denies lightheadedness dizziness or near syncopal episode. - Related Data Home Medications Medication Instructions Recorded Confirmed Furosemide [Lasix] 80 mg PO BID 09/17/13 11/26/16 Albuterol Inhaler [Ventolin Hfa 1 puff INHALATION RT-BID PRN 02/12/16 11/26/16 Inhaler] Atorvastatin [Lipitor] 40 mg PO HS 07/16/16 11/26/16 Insulin Aspart [NovoLOG Flexpen] See Protocol SQ AC-TID 07/16/16 11/26/16 ALPRAZolam [Xanax] 0.25 mg PO HS PRN 07/29/16 11/26/16 Aspirin EC [Ecotrin Low Dose] 81 mg PO DAILY 10/30/16 11/26/16 Folic Acid-Vit B Complex-Vit C 1 cap PO DAILY 10/30/16 11/26/16 [Nephrocaps] Insulin Glargine,Hum.rec.anlog 38 units SQ HS 10/30/16 11/26/16 [Toujeo Solostar] Nitroglycerin Sl Tabs [Nitrostat] 0.4 mg SUBLINGUAL Q5M PRN 10/30/16 11/26/16 Sevelamer [Renvela] 2,400 mg PO AC-TID 10/30/16 11/26/16 amLODIPine [Norvasc] 5 mg PO DAILY 10/30/16 11/26/16 Metoprolol Succinate (ER) [Toprol 50 mg PO DAILY 11/26/16 11/26/16 Xl] Previous Rx's Medication Instructions Recorded Clopidogrel [Plavix] 75 mg PO DAILY tab 02/16/16 Temazepam [Restoril] 15 mg PO HS PRN #15 cap 11/01/16 Allergies Allergy/AdvReac Type Severity Reaction Status Date / Time clonidine Allergy Anaphylaxis Verified 11/26/16 18:21 Iodinated Contrast- Oral and Allergy Anaphylaxis Verified 11/26/16 18:21 IV Dye iodine Allergy Anaphylaxis Verified 11/26/16 18:21 Penicillins Allergy Rash/Hives Verified 11/26/16 18:21 shellfish derived Allergy Anaphylaxis Verified 11/26/16 18:21 Review of Systems ROS Statement: Those systems with pertinent positive or pertinent negative responses have been documented in the HPI. ROS Other: All systems not noted in ROS Statement are negative. Past Medical History Past Medical History: Coronary Artery Disease (CAD), CVA/TIA, Diabetes Mellitus , GERD/Reflux, GI Bleed, Hyperlipidemia, Osteoarthritis (OA), Pneumonia, Renal Disease, Vascular Disorder Additional Past Medical History / Comment(s): Coronary artery disease, preserved LV function with an ejection fraction of 55% and moderate degree of MR , IDDM type II, End stage renal failure with hemodialysis [facility]-on kidney transplant list thru [facility], CVA 2007 with some peripheral vision problems R eye and R ear [place], lower GI bleed, PAD, DJD, diverticulosis, pancreatitis, bronchitis, TMJ, sinus problems at times, UTIs, benign polypectomies, anemia. History of Any Multi-Drug Resistant Organisms: None Reported Past Surgical History: Cholecystectomy, Heart Catheterization With Stent, Hysterectomy Additional Past Surgical History / Comment(s): L upper arm for dialysis cath, 3 Cardiac stents, one stent rt leg, EGD/colonoscopies/benign polypectomies , bilateral cataract removal, laser sx bilateral eyes for retinopathy, D&C, left axillary I&D Past Anesthesia/Blood Transfusion Reactions: Motion Sickness, Postoperative Nausea & Vomiting (PONV) Additional Past Anesthesia/Blood Transfusion Reaction / Comment(s): Pt has received blood in the past without reaction. Date of Last Stent Placement:: 09/22/13 Past Psychological History: No Psychological Hx Reported Smoking Status: Former smoker - Past Family History Mother Family Medical History: No Reported History Additional Family Medical History / Comment(s): Mother is 76 yrs old. Father Family Medical History: Diabetes Mellitus Additional Family Medical History / Comment(s): Father at the age of 42yrs- pt does not know reason. General Exam - General Exam Comments Initial Comments: GENERAL: Patient is well-developed and well-nourished. Patient is nontoxic and well- hydrated and is in no acute distress. ENT: Neck is soft and supple. No significant lymphadenopathy is noted. Oropharynx is clear. Moist mucous membranes. Neck has full range of motion without eliciting any pain. EYES: The sclera were anicteric and conjunctiva were pink and moist. Extraocular movements were intact and pupils were equal round and reactive to light. Eyelids were unremarkable. PULMONARY: Unlabored respirations. Good breath sounds bilaterally. No audible rales rhonchi or wheezing was noted. CARDIOVASCULAR: There is a regular rate and rhythm without any murmurs gallops or rubs. ABDOMEN: Soft and nontender with normal bowel sounds. No palpable organomegaly was noted. There is no palpable pulsatile mass. SKIN: Skin is clear with no lesions or rashes and otherwise unremarkable. NEUROLOGIC: Patient is alert and oriented x3. Cranial nerves II through XII are grossly intact. Motor and sensory are also intact. Normal speech, volume and content. Symmetrical smile. MUSCULOSKELETAL: Normal extremities with adequate strength and full range of motion. No lower extremity swelling or edema. No calf tenderness. LYMPHATICS: No significant lymphadenopathy is noted PSYCHIATRIC: Normal psychiatric evaluation. Limitations: no limitations Course Vital Signs 11/26/16 11/26/16 17:37 19:16 Temperature 98.0 F 97.9 F Pulse Rate 130 H 97 Respiratory 16 18 Rate Blood Pressure 89/54 137/65 O2 Sat by Pulse 96 100 Oximetry Medical Decision Making - Medical Decision Making EKG shows atrial fibrillation with rapid ventricular response at 137 bpm QRS is 84 QT interval is 290 QTC is 437. Patient's EKG is compared to an old EKG and no significant changes are noted except for the atrial fibrillation. I noted the patient's heart rate slowed and looked regular site another EKG it showed a normal sinus rhythm at 96 bpm VA interval is 132 QRS is 86 QT interval is 42 QTC is 507. There is no ST segment elevation or depression there is some T-wave inversion in leads V5 and V6 and 3 and aVL. I started the patient on heparin because the elevated troponin as well as the atrial fib. I spoke with Dr. Black he agreed to admit the patient admitted the patient wrote admitting orders. - Lab Data Result diagrams: 11/26/16 18:22 11/26/16 18:22 Lab Results 11/26/16 11/26/16 11/26/16 Range/Units 18:22 18:22 18:22 WBC 7.0 (3.8-10.6) k/uL RBC 3.61 L (3.80-5.40) m/uL Hgb 11.2 L (11.4-16.0) gm/dL Hct 34.3 (34.0-46.0) % MCV 95.2 (80.0-100.0) fL MCH 31.0 (25.0-35.0) pg MCHC 32.5 (31.0-37.0) g/dL RDW 22.2 H (11.5-15.5) % Plt Count 331 (150-450) k/uL Neutrophils % 76 % Lymphocytes % 13 % Monocytes % 7 % Eosinophils % 1 % Basophils % 0 % Neutrophils # 5.3 (1.3-7.7) k/uL Lymphocytes # 0.9 L (1.0-4.8) k/uL Monocytes # 0.5 (0-1.0) k/uL Eosinophils # 0.1 (0-0.7) k/uL Basophils # 0.0 (0-0.2) k/uL Hypochromasia Slight Anisocytosis Moderate Macrocytosis Slight PT (9.0-12.0) sec INR (<1.2) APTT (22.0-30.0) sec Sodium 133 L (137-145) mmol/L Potassium 3.8 (3.5-5.1) mmol/L Chloride 90 L (98-107) mmol/L Carbon Dioxide 29 (22-30) mmol/L Anion Gap 14 mmol/L BUN 17 (7-17) mg/dL Creatinine 4.14 H (0.52-1.04) mg/dL Est GFR (MDRD) Af Amer 13 (>60 ml/min/1.73 sqM) Est GFR (MDRD) Non-Af 11 (>60 ml/min/1.73 sqM) Glucose 318 H (74-99) mg/dL Calcium 9.0 (8.4-10.2) mg/dL Magnesium 2.1 (1.6-2.3) mg/dL Total Bilirubin 0.6 (0.2-1.3) mg/dL AST 23 (14-36) U/L ALT 27 (9-52) U/L Alkaline Phosphatase 97 (38-126) U/L Total Creatine Kinase 79 (30-135) U/L CK-MB (CK-2) 3.3 H* (0.0-2.4) ng/mL CK-MB (CK-2) Rel Index 4.2 Troponin I 0.143 H* (0.000-0.034) ng/mL Total Protein 7.4 (6.3-8.2) g/dL Albumin 4.2 (3.5-5.0) g/dL 11/26/16 Range/Units 18:22 WBC (3.8-10.6) k/uL RBC (3.80-5.40) m/uL Hgb (11.4-16.0) gm/dL Hct (34.0-46.0) % MCV (80.0-100.0) fL MCH (25.0-35.0) pg MCHC (31.0-37.0) g/dL RDW (11.5-15.5) % Plt Count (150-450) k/uL Neutrophils % % Lymphocytes % % Monocytes % % Eosinophils % % Basophils % % Neutrophils # (1.3-7.7) k/uL Lymphocytes # (1.0-4.8) k/uL Monocytes # (0-1.0) k/uL Eosinophils # (0-0.7) k/uL Basophils # (0-0.2) k/uL Hypochromasia Anisocytosis Macrocytosis PT 9.6 (9.0-12.0) sec INR 0.9 (<1.2) APTT 23.2 (22.0-30.0) sec Sodium (137-145) mmol/L Potassium (3.5-5.1) mmol/L Chloride (98-107) mmol/L Carbon Dioxide (22-30) mmol/L Anion Gap mmol/L BUN (7-17) mg/dL Creatinine (0.52-1.04) mg/dL Est GFR (MDRD) Af Amer (>60 ml/min/1.73 sqM) Est GFR (MDRD) Non-Af (>60 ml/min/1.73 sqM) Glucose (74-99) mg/dL Calcium (8.4-10.2) mg/dL Magnesium (1.6-2.3) mg/dL Total Bilirubin (0.2-1.3) mg/dL AST (14-36) U/L ALT (9-52) U/L Alkaline Phosphatase (38-126) U/L Total Creatine Kinase (30-135) U/L CK-MB (CK-2) (0.0-2.4) ng/mL CK-MB (CK-2) Rel Index Troponin I (0.000-0.034) ng/mL Total Protein (6.3-8.2) g/dL Albumin (3.5-5.0) g/dL Critical Care Time Critical Care Time: Yes Total Critical Care Time: 35 Disposition Clinical Impression: New onset a-fib, Elevated troponin Disposition: ADMITTED IP TO THIS HOSP Referrals: Ramiro Sethi MD [Primary Care Provider] - 1-2 days Time of Disposition: 19:23
[2016-11-26] MEDS ORDERED: DILTIAZEM 125 MG in SODIUM CHLORIDE 0.9% 100 ML IV ONE (18:16)
[2016-11-26 18:36] LABS: Anisocytosis Moderate; Basophils % (A) 0 %; CH 30.3; CHCM 31.9; Eosinophils # (A) 0.1 k/uL (0-0.7); Eosinophils % (A) 1 %; HCT 34.3 % (34.0-46.0); HDW 3.25; HGB 11.2 gm/dL (11.4-16.0); Hypochromasia Slight; Luc # (Auto) 0.17; Luc % (Auto) 3; Lymphocytes # (A) 0.9 k/uL (1.0-4.8); Lymphocytes % (A) 13 %; MCHC 32.5 g/dL (31.0-37.0); MCV 95.2 fL (80.0-100.0); Macrocytosis Slight; Mean Platelet Volume 7.5; Monocytes # (A) 0.5 k/uL (0-1.0); Monocytes % (A) 7 %; Neutrophils # (A) 5.3 k/uL (1.3-7.7); Neutrophils % (A) 76 %; RBC 3.61 m/uL (3.80-5.40); RDW 22.2 % (11.5-15.5); WBC (Perox) 6.57
[2016-11-26 18:44] LABS: Magnesium 2.1 mg/dL (1.6-2.3); Potassium 3.8 mmol/L (3.5-5.1); Total Bilirubin 0.6 mg/dL (0.2-1.3); Total Protein 7.4 g/dL (6.3-8.2)
[2016-11-26 19:01] LABS: INR 0.9 (<1.2); Partial Thromboplastin Time 23.2 sec (22.0-30.0); Prothrombin Time 9.6 sec (9.0-12.0)
[2016-11-26] MEDS ORDERED: ONDANSETRON 4 MG/2 ML VIAL IVP STA (19:09)
--- NOTE | 2016-11-26 19:10 | XR ---
EXAMINATION TYPE: XR chest 2V DATE OF EXAM: 11/26/2016 COMPARISON: 10/30/2016 HISTORY: Dizziness TECHNIQUE: Frontal and lateral views of the chest are obtained. FINDINGS: There is no heart failure nor confluent pneumonic infiltrate. Heart is slightly enlarged. Thoracic aorta is atheromatous. There are chest leads. There is left axillary artery stent noted. The re is no pleural effusion. IMPRESSION: Cardiomegaly. There is clearing of the pulmonary edema compared to last exam.
[2016-11-26 19:12] LABS: Creatine Kinase MB 3.3 ng/mL (0.0-2.4)
[2016-11-26 19:13] LABS: Troponin I 0.143 ng/mL (0.000-0.034)
[2016-11-26] MEDS ORDERED: HEPARIN SODIUM,PORCINE 5,000 UNIT/ML 1 ML VIAL IV ONE (19:22)
[2016-11-26] MEDS ORDERED: NITROGLYCERIN SL TABS 0.4 MG TAB SUBLINGUAL PRN (19:24)
[2016-11-26] MEDS: HEPARIN SODIUM,PORCINE/D5W PMX 25,000 UNIT in DEXTROSE/WATER 1 500ML.BAG IV SCH (20:03)
[2016-11-26 20:25] LABS: Glucose,Whole Blood 336 mg/dL (75-99)
[2016-11-26] MEDS: INSULIN LISPRO (humaLOG) 300 UNIT/3 ML VIAL SQ SCH (20:36)
[2016-11-26 21:23] LABS: Hemoglobin A1C 8.3 % (4.2-6.1)
[2016-11-26] MEDS: ALPRAZolam 0.25 MG TAB PO PRN (22:46)
[2016-11-27] MEDS ORDERED: HYDROcodone/APAP 5-325MG 1 EACH TAB PO STA (01:41)
[2016-11-27 02:21] LABS: Creatine Kinase MB 19.3 ng/mL (0.0-2.4); Troponin I 6.26 ng/mL (0.000-0.034)
[2016-11-27] MEDS: INSULIN LISPRO (humaLOG) 300 UNIT/3 ML VIAL SQ SCH ×5 (02:52→21:06)
[2016-11-27 03:03] LABS: Glucose,Whole Blood 332 mg/dL (75-99)
[2016-11-27 06:00] LABS: Anisocytosis Moderate; CH 30.6; HDW 3.18; Hypochromasia Slight; MCH 30.6 pg (25.0-35.0); MCHC 31.7 g/dL (31.0-37.0); MCV 96.4 fL (80.0-100.0); Macrocytosis Moderate; Mean Platelet Volume 7.6; RBC 3.01 m/uL (3.80-5.40); RDW 23.2 % (11.5-15.5); WBC 5.5 k/uL (3.8-10.6)
[2016-11-27 06:06] LABS: HGB 9.2 gm/dL (11.4-16.0)
[2016-11-27 06:12] LABS: Calcium 8.5 mg/dL (8.4-10.2); Magnesium 2.3 mg/dL (1.6-2.3)
[2016-11-27 06:35] LABS: Creatine Kinase MB 14.3 ng/mL (0.0-2.4); Troponin I 6.58 ng/mL (0.000-0.034)
[2016-11-27 07:50] LABS: Glucose,Whole Blood 201 mg/dL (75-99)
[2016-11-27] MEDS: SEVELAMER 800 MG TAB PO SCH ×3 (08:10→17:14)
[2016-11-27] MEDS: FOLIC ACID-VIT B COMPLEX-VIT C 1 CAP PO SCH ×2 (08:11→09:21)
[2016-11-27] MEDS: FUROSEMIDE 80 MG TAB PO SCH ×3 (08:11→20:12)
[2016-11-27] MEDS: CLOPIDOGREL 75 MG TAB PO SCH ×2 (08:12→09:21)
[2016-11-27] MEDS: METOPROLOL SUCCINATE (ER) 50 MG TAB.ER.24H PO SCH ×2 (08:12→09:21)
[2016-11-27] MEDS: amLODIPine 5 MG TAB PO SCH ×2 (08:12→09:21)
[2016-11-27] MEDS: ASPIRIN 81 MG PO SCH ×2 (08:12→09:21)
--- NOTE | 2016-11-27 08:22 | P.CRDCN ---
History of Present Illness Consult date: 11/27/16 Reason for Consult (text): Non-ST segment elevation LA Paroxysmal atrial fibrillation Consult reason: non-Q-wave LA, atrial fibrillation History of present illness: 56-year-old lady with history of coronary artery disease status post angioplasty of ramus intermedius in July 2016 unsuccessful angioplasty of [place] right coronary artery known peripheral vascular disease status post prior angioplasty on the right leg comes to Hospital with atrial fibrillation with rapid ventricular rate. Patient was at hemodialysis blood pressure dropped and she was not feeling well and was found to be in A. fib with RVR she converted back to sinus rhythm. Her troponin which was 0.1 initially went up to 6 suggestive of a non-ST segment elevation LA. Patient did not have any chest pain. This morning she is free of symptoms. Patient needs cardiac catheterization to evaluate her coronary anatomy I'm going to ask Dr. Calixto to do this. Patient also needs to be anticoagulated in the long run we can start her on Coumadin after the cath. Review of Systems Constitutional: Denies chills. Denies fever. Eyes: Denies blurred vision. Denies pain. Ears, nose, mouth and throat: Denies headache. Denies sore throat. Cardiovascular: Denies chest pain. Denies shortness of breath. Patient had dizziness and low blood pressure Respiratory: Denies cough. Gastrointestinal: Denies abdominal pain. Denies diarrhea. Denies nausea. Denies vomiting. Musculoskeletal: Denies myalgias. Integumentary: Denies pruritus. Denies rash. Neurological: Denies numbness. Denies weakness. Psychiatric: Denies anxiety. Denies depression. Endocrine: Denies fatigue. Denies weight change. Genitourinary: Denies burning, hematuria, frequency of urination. Hematological: No anemia or excess bleeding. Past Medical History Past Medical History: Coronary Artery Disease (CAD), Heart Failure, CVA/TIA, Diabetes Mellitus, GERD/Reflux, GI Bleed, Hyperlipidemia, Osteoarthritis (OA), Pneumonia, Renal Disease, Vascular Disorder Additional Past Medical History / Comment(s): Coronary artery disease, preserved LV function with an ejection fraction of 55% and moderate degree of MR , IDDM type II, End stage renal failure with hemodialysis [facility]-on kidney transplant list thru [facility], CVA 2007 with some peripheral vision problems R eye and R ear [place], lower GI bleed, PAD, DJD, diverticulosis, pancreatitis, bronchitis, TMJ, sinus problems at times, UTIs, benign polypectomies, anemia. History of Any Multi-Drug Resistant Organisms: None Reported Past Surgical History: Cholecystectomy, Heart Catheterization, Heart Catheterization With Stent, Hysterectomy Additional Past Surgical History / Comment(s): L upper arm for dialysis cath, 3 Cardiac stents, one stent rt leg, EGD/colonoscopies/benign polypectomies , bilateral cataract removal, laser sx bilateral eyes for retinopathy, D&C, left axillary I&D Past Anesthesia/Blood Transfusion Reactions: Motion Sickness, Postoperative Nausea & Vomiting (PONV) Additional Past Anesthesia/Blood Transfusion Reaction / Comment(s): Pt has received blood in the past without reaction. Date of Last Stent Placement:: 09/22/13 Smoking Status: Former smoker - Past Family History Mother Family Medical History: No Reported History Additional Family Medical History / Comment(s): Mother is 76 yrs old. Father Family Medical History: Diabetes Mellitus Additional Family Medical History / Comment(s): Father at the age of 42yrs- pt does not know reason. Medications and Allergies Home Medications Medication Instructions Recorded Confirmed Type Furosemide [Lasix] 80 mg PO BID 09/17/13 11/26/16 History Albuterol Inhaler [Ventolin Hfa 1 puff INHALATION RT-BID PRN 02/12/16 11/26/16 History Inhaler] Clopidogrel [Plavix] 75 mg PO DAILY tab 02/16/16 11/26/16 Rx Atorvastatin [Lipitor] 40 mg PO HS 07/16/16 11/26/16 History Insulin Aspart [NovoLOG Flexpen] See Protocol SQ AC-TID 07/16/16 11/26/16 History ALPRAZolam [Xanax] 0.25 mg PO HS PRN 07/29/16 11/26/16 History Aspirin EC [Ecotrin Low Dose] 81 mg PO DAILY 10/30/16 11/26/16 History Folic Acid-Vit B Complex-Vit C 1 cap PO DAILY 10/30/16 11/26/16 History [Nephrocaps] Insulin Glargine,Hum.rec.anlog 38 units SQ HS 10/30/16 11/26/16 History [Toujeo Solostar] Nitroglycerin Sl Tabs [Nitrostat] 0.4 mg SUBLINGUAL Q5M PRN 10/30/16 11/26/16 History Sevelamer [Renvela] 2,400 mg PO AC-TID 10/30/16 11/26/16 History amLODIPine [Norvasc] 5 mg PO DAILY 10/30/16 11/26/16 History Temazepam [Restoril] 15 mg PO HS PRN #15 cap 11/01/16 11/26/16 Rx Metoprolol Succinate (ER) [Toprol 50 mg PO DAILY 11/26/16 11/26/16 History Xl] Allergies Allergy/AdvReac Type Severity Reaction Status Date / Time clonidine Allergy Anaphylaxis Verified 11/26/16 18:21 Iodinated Contrast- Oral and Allergy Anaphylaxis Verified 11/26/16 18:21 IV Dye iodine Allergy Anaphylaxis Verified 11/26/16 18:21 Penicillins Allergy Rash/Hives Verified 11/26/16 18:21 shellfish derived Allergy Anaphylaxis Verified 11/26/16 18:21 Physical Exam Vitals: Vital Signs Temp Pulse Pulse Resp BP BP Pulse Ox 11/27/16 03:32 98.8 F 88 18 119/57 96 11/27/16 00:00 98.2 F 92 18 133/60 97 11/26/16 20:45 98.1 F 100 18 112/61 99 11/26/16 19:57 98.1 F 97 17 141/65 100 11/26/16 19:16 97.9 F 97 18 137/65 100 11/26/16 18:21 96 11/26/16 17:37 98.0 F 130 H 16 89/54 96 Intake and Output 11/26/16 11/27/16 11/27/16 22:59 06:59 14:59 Intake Total 188.408 Balance 188.408 Intake: Intake, IV Titration 188.408 Amount Diltiazem 125 mg In 0 Sodium Chloride 0.9% 100 ml @ 5 MG/HR 5 mls/hr IV .Q24H ONE Rx#:[id number] Heparin Sodium,Porcine/ 188.408 D5w Pmx 25,000 unit In Dextrose/Water 1 500ml. bag @ 12 UNITS/KG/HR 16. 43 mls/hr IV .Q24H [facility] Rx #:[id number] Other: Voiding Method Toilet Weight 68.492 kg 67.5 kg General: The patient is awake and alert, in no distress, and does not appear acutely ill. Skin: Skin is warm and dry and no rashes or lesions are noted. Eye: Pupils are equal, round and reactive to light, extra-ocular movements are intact; there is normal conjunctiva bilaterally. Ears, nose, mouth and throat: There are moist mucous membranes and no oral lesions. Neck: The neck is supple, there is no tenderness or JVD. Cardiovascular: There is a regular rate and rhythm. No murmur, rub or gallop is appreciated. Respiratory: Lungs are clear to auscultation, respirations are non-labored, breath sounds are equal. Gastrointestinal: Soft, non-distended, non-tender abdomen without masses or organomegaly noted. There is no rebound or guarding present. Bowel sounds are unremarkable. Back: There is no tenderness to palpation in the midline. There is no obvious deformity. Musculoskeletal: Normal ROM, no tenderness, There is no pedal edema. There is no calf tenderness or swelling. Extremities: No edema. Vascular: Femoral pulse is normal. Posterior tibial pulses are normal .Dorsalis pedis is palpable. Neurological: CN II-XII intact. There are no obvious motor or sensory deficits. Speech is normal. Psychiatric: Cooperative, appropriate mood & affect, normal judgment. Results 11/27/16 05:25 11/27/16 05:25 Cardiac Enzymes 11/26/16 11/26/16 11/27/16 Range/Units 18:22 18:22 01:24 AST 23 (14-36) U/L CK-MB (CK-2) 3.3 H* 19.3 H* (0.0-2.4) ng/mL Troponin I 0.143 H* 6.260 H* (0.000-0.034) ng/mL 11/27/16 Range/Units 05:25 AST (14-36) U/L CK-MB (CK-2) 14.3 H* (0.0-2.4) ng/mL Troponin I 6.580 H* (0.000-0.034) ng/mL Coagulation 11/26/16 11/27/16 11/27/16 Range/Units 18:22 01:24 05:25 PT 9.6 (9.0-12.0) sec APTT 23.2 36.8 H 34.7 H (22.0-30.0) sec Lipids 11/27/16 Range/Units 05:25 Triglycerides 277 H (<150) mg/dL Cholesterol 218 H (<200) mg/dL HDL Cholesterol 40 (40-60) mg/dL CBC 11/26/16 11/27/16 Range/Units 18:22 05:25 WBC 7.0 5.5 (3.8-10.6) k/uL RBC 3.61 L 3.01 L (3.80-5.40) m/uL Hgb 11.2 L 9.2 L D (11.4-16.0) gm/dL Hct 34.3 29.0 L (34.0-46.0) % Plt Count 331 333 (150-450) k/uL Comprehensive Metabolic Panel 11/26/16 11/27/16 Range/Units 18:22 05:25 Sodium 133 L 135 L (137-145) mmol/L Potassium 3.8 4.0 (3.5-5.1) mmol/L Chloride 90 L 96 L (98-107) mmol/L Carbon Dioxide 29 25 (22-30) mmol/L BUN 17 27 H (7-17) mg/dL Creatinine 4.14 H 5.40 H* (0.52-1.04) mg/dL Glucose 318 H 227 H (74-99) mg/dL Calcium 9.0 8.5 (8.4-10.2) mg/dL AST 23 (14-36) U/L ALT 27 (9-52) U/L Alkaline Phosphatase 97 (38-126) U/L Total Protein 7.4 (6.3-8.2) g/dL Albumin 4.2 (3.5-5.0) g/dL Current Medications Generic Name Dose Route Start Last Admin Trade Name Freq PRN Reason Stop Dose Admin Alprazolam 0.25 mg 11/26/16 22:34 11/26/16 22:46 Xanax PO 0.25 mg HS PRN Administration Insomnia Amlodipine Besylate 5 mg 11/27/16 09:00 Norvasc PO DAILY [facility] Aspirin 81 mg 11/27/16 09:00 Aspirin PO DAILY [facility] Atorvastatin Calcium 40 mg 11/27/16 21:00 Lipitor PO HS [facility] Clopidogrel Bisulfate 75 mg 11/27/16 09:00 Plavix PO DAILY [facility] Furosemide 80 mg 11/27/16 09:00 Lasix PO BID [facility] Diltiazem HCl 125 mg/ Sodium 125 mls @ 5 mls/hr 11/26/16 18:16 11/26/16 20:01 Chloride IV 11/27/16 18:15 Not Given .Q24H [facility] 5 MG/HR Heparin Sodium/Dextrose 25,000 500 mls @ 16.43 mls/hr 11/26/16 19:30 06:24 unit/ IV Solution IV 18 units/kg/hr .Q24H [facility] 24.65 mls/hr Protocol Titration 12 UNITS/KG/HR Insulin Human Lispro 0 unit 11/26/16 21:00 11/27/16 06:30 Humalog SQ 3 unit ACHS [facility] Administration Protocol Metoprolol Succinate 50 mg 11/27/16 09:00 Toprol Xl PO DAILY [facility] Multivit/Ca Carb/B Cmplx/FA/Prenat 1 each 11/27/16 09:00 Nephrocaps PO DAILY [facility] Nitroglycerin 0.4 mg 11/26/16 19:24 Nitrostat SUBLINGUAL Q5M PRN Chest Pain Sevelamer Carbonate 2,400 mg 11/27/16 07:30 11/27/16 08:10 Renvela PO Not Given AC-TID [facility] Intake and Output 11/26/16 11/27/16 11/27/16 22:59 06:59 14:59 Intake Total 188.408 Balance 188.408 Intake: Intake, IV Titration 188.408 Amount Diltiazem 125 mg In 0 Sodium Chloride 0.9% 100 ml @ 5 MG/HR 5 mls/hr IV .Q24H [facility] Rx#:[id number] Heparin Sodium,Porcine/ 188.408 D5w Pmx 25,000 unit In Dextrose/Water 1 500ml. bag @ 12 UNITS/KG/HR 16. 43 mls/hr IV .Q24H [facility] Rx #:[id number] Other: Voiding Method Toilet Weight 68.492 kg 67.5 kg 11/27/16 05:25 11/27/16 05:25 Assessment and Plan Plan: Acute non-ST segment elevation LA Paroxysmal atrial fibrillation End-stage renal disease on hemodialysis Peripheral vascular disease Hypertension Dyslipidemia I will continue the patient on intravenous heparin. Reviewed her old records. She had normal LV systolic function and an echocardiogram in July. A probably her primary rn oncology research will evaluate the patient today and will decide on further course of action. Patient had multiple prior interventions has always been difficult and challenging to do catheter based revascularization on her Patient has to be started on Coumadin.
[2016-11-27] MEDS ORDERED: ASPIRIN 325 MG TAB PO SCH (09:00)
[2016-11-27 11:53] LABS: Glucose,Whole Blood 273 mg/dL (75-99)
[2016-11-27 17:12] LABS: Glucose,Whole Blood 308 mg/dL (75-99)
[2016-11-27] MEDS ORDERED: CALCIUM CARBONATE 500 MG CHEWABLE PO PRN (18:04)
[2016-11-27] MEDS: FAMOTIDINE 20 MG TAB PO SCH (20:12)
[2016-11-27] MEDS: ACETAMINOPHEN TAB 325 MG TAB PO PRN (20:13)
[2016-11-27] MEDS: HEPARIN SODIUM,PORCINE/D5W PMX 25,000 UNIT in DEXTROSE/WATER 1 500ML.BAG IV SCH (20:14)
[2016-11-27] MEDS ORDERED: FAMOTIDINE 20 MG TAB PO SCH (21:00)
[2016-11-27] MEDS: ATORVASTATIN 40 MG TAB PO SCH (21:05)
[2016-11-27 21:06] LABS: Glucose,Whole Blood 259 mg/dL (75-99)
--- NOTE | 2016-11-27 21:53 | P.HPIM ---
History of Present Illness H&P Date: 11/27/16 Chief Complaint: Hypotension This is a 56-year-old female with a known history of ESRD on hemodialysis Thursday and Thursday, coronary artery disease with history of stent placement in July 2016 and peripheral vascular disease and also multiple other medical problems was sent to ER with hypotension. Patient states she went to dialysis today after dialysis she noted that her blood pressure was low and she was feeling a little weak and felt as though her vision was slightly blurred. Patient also felt palpitations. Patient decided come to the emergency department. Patient states blood pressure is still low just prior to arrival it was 80 systolic. Patient denies any difficulty breathing or shortness of breath. Patient denies any chest pain. Patient denies abdominal pain patient denies nausea vomiting or diarrhea. Patient denies any recent fever chills per patient denies headache. Patient denies lightheadedness dizziness or near syncopal episode. Patient was found to have atrial fibrillation when she was in the ER. Patient was started on Cardizem drip and converted back to sinus rhythm. Patient was also found to have elevated troponin level went up to 6.58. Cardiology has been consulted. Currently patient denied any chest pain. Review of Systems CONSTITUTIONAL: No fever, no malaise, no fatigue. HEENT: No recent visual problems or hearing problems. Denied any sore throat. CARDIOVASCULAR: No chest pain, orthopnea, PND, positive palpitations, no syncope. PULMONARY: , no hemoptysis. GASTROINTESTINAL: No diarrhea, no nausea, no vomiting, no abdominal pain. Normoactive bowel sounds. NEUROLOGICAL: No headaches, no weakness, no numbness. HEMATOLOGICAL: Denies any bleeding or petechiae. GENITOURINARY: Denies any burning micturition, frequency, or urgency. MUSCULOSKELETAL/RHEUMATOLOGICAL: Denies any joint pain, swelling, or any muscle pain. ENDOCRINE: Denies any polyuria or polydipsia. The rest of the 14-point review of systems is negative. Past Medical History Past Medical History: Coronary Artery Disease (CAD), Heart Failure, CVA/TIA, Diabetes Mellitus, GERD/Reflux, GI Bleed, Hyperlipidemia, Osteoarthritis (OA), Pneumonia, Renal Disease, Vascular Disorder Additional Past Medical History / Comment(s): Coronary artery disease, preserved LV function with an ejection fraction of 55% and moderate degree of MR , IDDM type II, End stage renal failure with hemodialysis MWF-on kidney transplant list thru [facility], CVA 2007 with some peripheral vision problems R eye and R ear [place], lower GI bleed, PAD, DJD, diverticulosis, pancreatitis, bronchitis, TMJ, sinus problems at times, UTIs, benign polypectomies, anemia. History of Any Multi-Drug Resistant Organisms: None Reported Past Surgical History: Cholecystectomy, Heart Catheterization, Heart Catheterization With Stent, Hysterectomy Additional Past Surgical History / Comment(s): L upper arm for dialysis cath, 3 Cardiac stents, one stent rt leg, EGD/colonoscopies/benign polypectomies , bilateral cataract removal, laser sx bilateral eyes for retinopathy, D&C, left axillary I&D Past Anesthesia/Blood Transfusion Reactions: Motion Sickness, Postoperative Nausea & Vomiting (PONV) Additional Past Anesthesia/Blood Transfusion Reaction / Comment(s): Pt has received blood in the past without reaction. Date of Last Stent Placement:: 09/22/13 Smoking Status: Former smoker - Past Family History Mother Family Medical History: No Reported History Additional Family Medical History / Comment(s): Mother is 76 yrs old. Father Family Medical History: Diabetes Mellitus Additional Family Medical History / Comment(s): Father at the age of 42yrs- pt does not know reason. Medications and Allergies Home Medications Medication Instructions Recorded Confirmed Type Furosemide [Lasix] 80 mg PO BID 09/17/13 11/26/16 History Albuterol Inhaler [Ventolin Hfa 1 puff INHALATION RT-BID PRN 02/12/16 11/26/16 History Inhaler] Clopidogrel [Plavix] 75 mg PO DAILY tab 02/16/16 11/26/16 Rx Atorvastatin [Lipitor] 40 mg PO HS 07/16/16 11/26/16 History Insulin Aspart [NovoLOG Flexpen] See Protocol SQ AC-TID 07/16/16 11/26/16 History ALPRAZolam [Xanax] 0.25 mg PO HS PRN 07/29/16 11/26/16 History Aspirin EC [Ecotrin Low Dose] 81 mg PO DAILY 10/30/16 11/26/16 History Folic Acid-Vit B Complex-Vit C 1 cap PO DAILY 10/30/16 11/26/16 History [Nephrocaps] Insulin Glargine,Hum.rec.anlog 38 units SQ HS 10/30/16 11/26/16 History [Toujeo Solostar] Nitroglycerin Sl Tabs [Nitrostat] 0.4 mg SUBLINGUAL Q5M PRN 10/30/16 11/26/16 History Sevelamer [Renvela] 2,400 mg PO AC-TID 10/30/16 11/26/16 History amLODIPine [Norvasc] 5 mg PO DAILY 10/30/16 11/26/16 History Temazepam [Restoril] 15 mg PO HS PRN #15 cap 11/01/16 11/26/16 Rx Metoprolol Succinate (ER) [Toprol 50 mg PO DAILY 11/26/16 11/26/16 History Xl] Allergies Allergy/AdvReac Type Severity Reaction Status Date / Time clonidine Allergy Anaphylaxis Verified 11/26/16 18:21 Iodinated Contrast- Oral and Allergy Anaphylaxis Verified 11/26/16 18:21 IV Dye iodine Allergy Anaphylaxis Verified 11/26/16 18:21 Penicillins Allergy Rash/Hives Verified 11/26/16 18:21 shellfish derived Allergy Anaphylaxis Verified 11/26/16 18:21 Physical Exam Vitals: Vital Signs Temp Pulse Pulse Resp BP BP Pulse Ox 11/27/16 08:00 99.2 F 88 18 134/62 94 L 11/27/16 03:32 98.8 F 88 18 119/57 96 11/27/16 00:00 98.2 F 92 18 133/60 97 11/26/16 20:45 98.1 F 100 18 112/61 99 11/26/16 19:57 98.1 F 97 17 141/65 100 11/26/16 19:16 97.9 F 97 18 137/65 100 11/26/16 18:21 96 11/26/16 17:37 98.0 F 130 H 16 89/54 96 Intake and Output 11/26/16 11/27/16 11/27/16 22:59 06:59 14:59 Intake Total 188.408 Balance 188.408 Intake: Intake, IV Titration 188.408 Amount Diltiazem 125 mg In 0 Sodium Chloride 0.9% 100 ml @ 5 MG/HR 5 mls/hr IV .Q24H [facility] Rx#:[id number] Heparin Sodium,Porcine/ 188.408 D5w Pmx 25,000 unit In Dextrose/Water 1 500ml. bag @ 12 UNITS/KG/HR 16. 43 mls/hr IV .Q24H [facility] Rx #:[id number] Other: Voiding Method Toilet Toilet Weight 68.492 kg 67.5 kg PHYSICAL EXAMINATION: Patient is lying in the bed comfortably, no acute distress, awake alert and oriented.. HEENT: Normocephalic. Neck is supple. Pupils reactive. Nostrils clear. Oral cavity is moist. Ears reveal no drainage. Neck reveals no JVD, carotid bruits, or thyromegaly. CHEST EXAMINATION: Trachea is central. Symmetrical expansion. Lung perez clear to auscultation and percussion. CARDIAC: Normal S1, S2 with no gallops. No murmurs ABDOMEN: Soft. Bowel sounds normal. No organomegaly. No abdominal bruits. Extremities reveal no edema. No clubbing or cyanosis Neurologically awake, alert, oriented x3 with well-coordinated movements. Skin: no rash or skin lesions Musculoskeletal: no joint swelling or deformity. Results CBC & Chem 7: 11/27/16 05:25 11/27/16 05:25 Labs: Abnormal Lab Results - Last 24 Hours (Table) 11/26/16 11/26/16 11/26/16 Range/Units 18:22 18:22 18:22 RBC 3.61 L (3.80-5.40) m/uL Hgb 11.2 L (11.4-16.0) gm/dL Hct (34.0-46.0) % RDW 22.2 H (11.5-15.5) % Lymphocytes # 0.9 L (1.0-4.8) k/uL APTT (22.0-30.0) sec Sodium 133 L (137-145) mmol/L Chloride 90 L (98-107) mmol/L BUN (7-17) mg/dL Creatinine 4.14 H (0.52-1.04) mg/dL Glucose 318 H (74-99) mg/dL POC Glucose (mg/dL) (75-99) mg/dL Hemoglobin A1c (4.2-6.1) % Total Creatine Kinase (30-135) U/L CK-MB (CK-2) 3.3 H* (0.0-2.4) ng/mL Troponin I 0.143 H* (0.000-0.034) ng/mL Triglycerides (<150) mg/dL Cholesterol (<200) mg/dL LDL Cholesterol, Calc (0-99) mg/dL 11/26/16 11/26/16 11/27/16 Range/Units 18:22 20:23 01:24 RBC (3.80-5.40) m/uL Hgb (11.4-16.0) gm/dL Hct (34.0-46.0) % RDW (11.5-15.5) % Lymphocytes # (1.0-4.8) k/uL APTT (22.0-30.0) sec Sodium (137-145) mmol/L Chloride (98-107) mmol/L BUN (7-17) mg/dL Creatinine (0.52-1.04) mg/dL Glucose (74-99) mg/dL POC Glucose (mg/dL) 336 H (75-99) mg/dL Hemoglobin A1c 8.3 H (4.2-6.1) % Total Creatine Kinase 255 H (30-135) U/L CK-MB (CK-2) 19.3 H* (0.0-2.4) ng/mL Troponin I 6.260 H* (0.000-0.034) ng/mL Triglycerides (<150) mg/dL Cholesterol (<200) mg/dL LDL Cholesterol, Calc (0-99) mg/dL 11/27/16 11/27/16 11/27/16 Range/Units 01:24 02:50 05:25 RBC (3.80-5.40) m/uL Hgb (11.4-16.0) gm/dL Hct (34.0-46.0) % RDW (11.5-15.5) % Lymphocytes # (1.0-4.8) k/uL APTT 36.8 H (22.0-30.0) sec Sodium (137-145) mmol/L Chloride (98-107) mmol/L BUN (7-17) mg/dL Creatinine (0.52-1.04) mg/dL Glucose (74-99) mg/dL POC Glucose (mg/dL) 332 H (75-99) mg/dL Hemoglobin A1c (4.2-6.1) % Total Creatine Kinase 210 H (30-135) U/L CK-MB (CK-2) 14.3 H* (0.0-2.4) ng/mL Troponin I 6.580 H* (0.000-0.034) ng/mL Triglycerides (<150) mg/dL Cholesterol (<200) mg/dL LDL Cholesterol, Calc (0-99) mg/dL 11/27/16 11/27/16 11/27/16 Range/Units 05:25 05:25 05:25 RBC 3.01 L (3.80-5.40) m/uL Hgb 9.2 L D (11.4-16.0) gm/dL Hct 29.0 L (34.0-46.0) % RDW 23.2 H (11.5-15.5) % Lymphocytes # (1.0-4.8) k/uL APTT 34.7 H (22.0-30.0) sec Sodium 135 L (137-145) mmol/L Chloride 96 L (98-107) mmol/L BUN 27 H (7-17) mg/dL Creatinine 5.40 H* (0.52-1.04) mg/dL Glucose 227 H (74-99) mg/dL POC Glucose (mg/dL) (75-99) mg/dL Hemoglobin A1c (4.2-6.1) % Total Creatine Kinase (30-135) U/L CK-MB (CK-2) (0.0-2.4) ng/mL Troponin I (0.000-0.034) ng/mL Triglycerides 277 H (<150) mg/dL Cholesterol 218 H (<200) mg/dL LDL Cholesterol, Calc 123 H (0-99) mg/dL 11/27/16 Range/Units 06:17 RBC (3.80-5.40) m/uL Hgb (11.4-16.0) gm/dL Hct (34.0-46.0) % RDW (11.5-15.5) % Lymphocytes # (1.0-4.8) k/uL APTT (22.0-30.0) sec Sodium (137-145) mmol/L Chloride (98-107) mmol/L BUN (7-17) mg/dL Creatinine (0.52-1.04) mg/dL Glucose (74-99) mg/dL POC Glucose (mg/dL) 201 H (75-99) mg/dL Hemoglobin A1c (4.2-6.1) % Total Creatine Kinase (30-135) U/L CK-MB (CK-2) (0.0-2.4) ng/mL Troponin I (0.000-0.034) ng/mL Triglycerides (<150) mg/dL Cholesterol (<200) mg/dL LDL Cholesterol, Calc (0-99) mg/dL Thrombosis Risk Factor Assmnt - Choose All That Apply Any of the Below Risk Factors Present?: Yes Each Factor Represents 1 point: Age 41-60 years, Obesity (BMI >25) Other Risk Factors: Yes Thrombosis Risk Factor Assessment Total Risk Factor Score: 2 Thrombosis Risk Factor Assessment Level: Low Risk Assessment and Plan Plan: #1 new onset atrial fibrillation. Paroxysmal #2 acute non-ST elevated GA with elevated troponin level up to 6.58 #3 recent history of angioplasty in July 2016 with difficult catheterization. #4 ESRD on hemodialysis Thursday. #5 peripheral vascular disease #6 hypertension #7 hyperlipidemia #8 anemia of chronic disease. Rule out iron deficiency. Plan: Patient will be continued on telemetry monitoring and continue with heparin drip at this time. Cardiology has seen the patient and recommended cardiac catheterization. Continue the current management and follow closely. Patient will need full and decannulation possibly with Coumadin upon discharge. Further recommendations based on the clinical course. Time with Patient: Greater than 30
[2016-11-27] MEDS: ALPRAZolam 0.25 MG TAB PO PRN (23:03)
[2016-11-28 05:56] LABS: Glucose,Whole Blood 277 mg/dL (75-99)
[2016-11-28 06:39] LABS: Anisocytosis Moderate; Basophils % (A) 0 %; CH 30.2; CHCM 31.3; Eosinophils # (A) 0.2 k/uL (0-0.7); Eosinophils % (A) 3 %; HDW 3.06; HGB 8.8 gm/dL (11.4-16.0); Hypochromasia Slight; Luc # (Auto) 0.14; Luc % (Auto) 3; Lymphocytes % (A) 20 %; MCH 30.5 pg (25.0-35.0); MCHC 31.5 g/dL (31.0-37.0); MCV 96.6 fL (80.0-100.0); Macrocytosis Slight; Mean Platelet Volume 7.4; Monocytes # (A) 0.3 k/uL (0-1.0); Monocytes % (A) 7 %; Neutrophils # (A) 3.1 k/uL (1.3-7.7); Neutrophils % (A) 66 %; RDW 21.9 % (11.5-15.5); WBC 4.7 k/uL (3.8-10.6); WBC (Perox) 5.46
[2016-11-28] MEDS: SEVELAMER 800 MG TAB PO SCH ×3 (06:59→17:38)
[2016-11-28] MEDS: INSULIN LISPRO (humaLOG) 300 UNIT/3 ML VIAL SQ SCH ×3 (07:00→17:22)
[2016-11-28 07:53] LABS: Hemoglobin A1C 8.3 % (4.2-6.1)
[2016-11-28 09:02] LABS: Potassium 3.9 mmol/L (3.5-5.1)
[2016-11-28 09:03] LABS: Calcium 8.3 mg/dL (8.4-10.2)
[2016-11-28] MEDS: amLODIPine 5 MG TAB PO SCH (09:24)
[2016-11-28] MEDS: FOLIC ACID-VIT B COMPLEX-VIT C 1 CAP PO SCH (09:25)
[2016-11-28] MEDS: CLOPIDOGREL 75 MG TAB PO SCH (09:25)
[2016-11-28] MEDS: ASPIRIN 81 MG PO SCH (09:25)
[2016-11-28] MEDS: FUROSEMIDE 80 MG TAB PO SCH ×2 (09:26→23:40)
--- NOTE | 2016-11-28 10:43 | P.NPCON ---
History of Present Illness - Reason for Consult end stage renal disease - History of Present Illness Reason for consultation: End-stage renal disease History of present illness: Patient is a 56-year-old female seen in renal consultation for end-stage renal disease. She is maintained on hemodialysis on a Thursday schedule. Left upper extremity AV graft. Her last hemodialysis was on Thursday. Patient states after she completed her dialysis she went home and was resting on the couch. Her blood pressure was in the systolic 70s and she felt quite dizzy and lightheaded. She came to the hospital and was noted to be in atrial fibrillation with RVR. She was started on a Cardizem drip which has not been discontinued. Her blood pressures have been stable with most recent reading of 138/59. Denies fever. Does have some chills. No vomiting or diarrhea. Does admit to chest soreness. Denies pressure. Denies diaphoresis. Denies dyspnea. Overall feels better since admission. She does have a history of coronary artery disease status post interventions in the past. No evidence of fluid overload noted on chest x-ray. Vital signs are stable. General: The patient appeared well nourished and normally developed. HEENT: Head exam is unremarkable. Neck is without jugular venous distension. LUNGS: Lungs are clear to auscultation and percussion. Breath sounds decreased. HEART: Rate and Rhythm are regular. First and second heart sounds normal. No murmurs, rubs or gallops. ABDOMEN: Abdominal exam reveals normal bowel sounds. Non-tender and non- distended. No evidence of peritonitis. EXTREMITITES: No clubbing, cyanosis, or edema. Past Medical History Past Medical History: Coronary Artery Disease (CAD), Heart Failure, CVA/TIA, Diabetes Mellitus, GERD/Reflux, GI Bleed, Hyperlipidemia, Osteoarthritis (OA), Pneumonia, Renal Disease, Vascular Disorder Additional Past Medical History / Comment(s): Coronary artery disease, preserved LV function with an ejection fraction of 55% and moderate degree of MR , IDDM type II, End stage renal failure with hemodialysis MWF-on kidney transplant list thru [facility], CVA 2007 with some peripheral vision problems R eye and R ear [place], lower GI bleed, PAD, DJD, diverticulosis, pancreatitis, bronchitis, TMJ, sinus problems at times, UTIs, benign polypectomies, anemia. History of Any Multi-Drug Resistant Organisms: None Reported Past Surgical History: Cholecystectomy, Heart Catheterization, Heart Catheterization With Stent, Hysterectomy Additional Past Surgical History / Comment(s): L upper arm for dialysis cath, 3 Cardiac stents, one stent rt leg, EGD/colonoscopies/benign polypectomies , bilateral cataract removal, laser sx bilateral eyes for retinopathy, D&C, left axillary I&D Past Anesthesia/Blood Transfusion Reactions: Motion Sickness, Postoperative Nausea & Vomiting (PONV) Additional Past Anesthesia/Blood Transfusion Reaction / Comment(s): Pt has received blood in the past without reaction. Date of Last Stent Placement:: 09/22/13 Smoking Status: Former smoker - Past Family History Mother Family Medical History: No Reported History Additional Family Medical History / Comment(s): Mother is 76 yrs old. Father Family Medical History: Diabetes Mellitus Additional Family Medical History / Comment(s): Father at the age of 42yrs- pt does not know reason. Medications and Allergies Home Medications Medication Instructions Recorded Confirmed Type Furosemide [Lasix] 80 mg PO BID 09/17/13 11/26/16 History Albuterol Inhaler [Ventolin Hfa 1 puff INHALATION RT-BID PRN 02/12/16 11/26/16 History Inhaler] Clopidogrel [Plavix] 75 mg PO DAILY tab 02/16/16 11/26/16 Rx Atorvastatin [Lipitor] 40 mg PO HS 07/16/16 11/26/16 History Insulin Aspart [NovoLOG Flexpen] See Protocol SQ AC-TID 07/16/16 11/26/16 History ALPRAZolam [Xanax] 0.25 mg PO HS PRN 07/29/16 11/26/16 History Aspirin EC [Ecotrin Low Dose] 81 mg PO DAILY 10/30/16 11/26/16 History Folic Acid-Vit B Complex-Vit C 1 cap PO DAILY 10/30/16 11/26/16 History [Nephrocaps] Insulin Glargine,Hum.rec.anlog 38 units SQ HS 10/30/16 11/26/16 History [Toujeo Solostar] Nitroglycerin Sl Tabs [Nitrostat] 0.4 mg SUBLINGUAL Q5M PRN 10/30/16 11/26/16 History Sevelamer [Renvela] 2,400 mg PO AC-TID 10/30/16 11/26/16 History amLODIPine [Norvasc] 5 mg PO DAILY 10/30/16 11/26/16 History Temazepam [Restoril] 15 mg PO HS PRN #15 cap 11/01/16 11/26/16 Rx Metoprolol Succinate (ER) [Toprol 50 mg PO DAILY 11/26/16 11/26/16 History Xl] Allergies Allergy/AdvReac Type Severity Reaction Status Date / Time clonidine Allergy Anaphylaxis Verified 11/26/16 18:21 Iodinated Contrast- Oral and Allergy Anaphylaxis Verified 11/26/16 18:21 IV Dye iodine Allergy Anaphylaxis Verified 11/26/16 18:21 Penicillins Allergy Rash/Hives Verified 11/26/16 18:21 shellfish derived Allergy Anaphylaxis Verified 11/26/16 18:21 Physical Exam Vitals: Vital Signs Temp Pulse Resp BP BP Pulse Ox 11/28/16 04:00 97.8 F 85 18 138/59 97 11/28/16 00:00 97.7 F 88 18 144/62 99 11/27/16 20:00 18 11/27/16 19:50 98.3 F 89 18 146/73 97 11/27/16 16:00 98.4 F 92 18 133/48 94 L 11/27/16 12:00 98.9 F 84 18 128/57 95 Intake and Output 11/27/16 11/28/16 11/28/16 22:59 06:59 14:59 Intake Total 551.592 0 506.22 Balance 551.592 0 506.22 Intake: Intake, IV Titration 311.592 0 266.22 Amount Diltiazem 125 mg In 0 Sodium Chloride 0.9% 100 ml @ 5 MG/HR 5 mls/hr IV .Q24H [facility] Rx#:[id number] Heparin Sodium,Porcine/ 311.592 266.22 D5w Pmx 25,000 unit In Dextrose/Water 1 500ml. bag @ 12 UNITS/KG/HR 16. 43 mls/hr IV .Q24H [facility] Rx #:[id number] Oral 240 240 Other: Voiding Method Toilet Toilet # Voids 2 1 Weight 69.3 kg Results - Lab Results Most recent lab results Calcium 8.3 mg/dL (8.4-10.2) L 11/28/16 05:52 Magnesium 2.3 mg/dL (1.6-2.3) 11/27/16 05:25 11/28/16 05:52 11/28/16 05:52 Assessment and Plan Plan: Assessment: #1. End-stage renal disease maintained on hemodialysis on a Thursday schedule. Left upper extremity AV graft. #2. Paroxysmal atrial fibrillation now off Cardizem drip. She has been started on Entocort elation. #3. Anemia of chronic kidney disease. Rule out iron deficiency. #4. Hypertension with chronic kidney disease. Controlled. #5. Chronic kidney disease mineral bone disease. #6. History of coronary artery disease status post stent placement. Plan: Hemodialysis today with goal 2 liters ultrafiltration. Check iron studies. Start Aranesp. Maintain Renvela with meals. Check phosphorus level. Cardiology following. Thank you for the consultation. I will continue to follow the patient with you during her hospital stay.
[2016-11-28] MEDS ORDERED: DARBEPOETIN ALFA 40 MCG/0.4 ML SYRINGE SQ SCH (11:00)
--- NOTE | 2016-11-28 11:14 | P.CONS ---
History of Present Illness - Reason for Consult Consult date: 11/28/16 History of GI bleed Requesting physician: Geovany Nboles - History of Present Illness 56-year-old female end-stage renal disease hemodialysis dependent, CAD, CVA, atrial fibrillation, GI bleed (2015) secondary to bleeding cecal AVM presents with paroxysmal atrial fibrillation and non-ST elevated MO. Consultation was requested for Coumadin initiation recommendations by cardiology team considering history of GI bleed past year. Presently patient is resting comfortably without overt symptoms of GI bleed such as hematemesis hematochezia or melena. Last bowel movement was 2 days ago. She was hospitalized January 2016 with acute lower GI bleed secondary to 1 cm actively bleeding AVM in the base of the cecum status post injection and resolution clip placement. She also underwent upper endoscopy with evidence of mild duodenitis but no evidence of peptic ulcer disease. Admission hemoglobin 11.2 presently 8.8. MCV 96. Platelet 296. INR 0.9. Receiving intravenous heparin, daily baby aspirin and Plavix. Upon review of previous medical records average hemoglobin ranges between 8-10. She receives iron prior to dialysis but does not take oral supplementation at home. No recent blood transfusions. Review of Systems Constitutional: Denies fever, chills, sweats, weight gain, or loss. HEENT: Negative for migraines, blurred vision or loss, earaches, drainage, tinnitus, oral mucosal lesions, dysphagia, or odynophagia. CARDIAC: CAD. CHF. Hyperlipidemia. Negative for chest pain, arrhythmias, or palpitation. RESPIRATORY: Negative for shortness of breath, hemoptysis, cough, or sputum production. GI: See HPI for pertinent findings. : Negative for hematuria, urgency, frequency, polyuria, or dysuria. GYNc: Denies possibility of . Negative vaginal discharge. MUSCULOSKELETAL: Negative for muscle aches, swelling, arthritis, and arthralgias. NEUROLOGIC: CVA/TIA. Nephrology: Dialysis-dependent end-stage chronic kidney disease. ENDOCRINE: Diabetes mellitus. Negative for thyroid problems. SKIN: Negative for rash or itching. PSYCHIATRIC: Negative history for depression and anxiety All systems: negative (See HPI) Past Medical History Past Medical History: Coronary Artery Disease (CAD), Heart Failure, CVA/TIA, Diabetes Mellitus, GERD/Reflux, GI Bleed, Hyperlipidemia, Osteoarthritis (OA), Pneumonia, Renal Disease, Vascular Disorder Additional Past Medical History / Comment(s): Coronary artery disease, preserved LV function with an ejection fraction of 55% and moderate degree of MR , IDDM type II, End stage renal failure with hemodialysis MWF-on kidney transplant list [facility], CVA 2007 with some peripheral vision problems R eye and R ear [place], lower GI bleed, PAD, DJD, diverticulosis, pancreatitis, bronchitis, TMJ, sinus problems at times, UTIs, benign polypectomies, anemia. History of Any Multi-Drug Resistant Organisms: None Reported Past Surgical History: Cholecystectomy, Heart Catheterization, Heart Catheterization With Stent, Hysterectomy Additional Past Surgical History / Comment(s): L upper arm for dialysis cath, 3 Cardiac stents, one stent rt leg, EGD/colonoscopies/benign polypectomies , bilateral cataract removal, laser sx bilateral eyes for retinopathy, D&C, left axillary I&D Past Anesthesia/Blood Transfusion Reactions: Motion Sickness, Postoperative Nausea & Vomiting (PONV) Additional Past Anesthesia/Blood Transfusion Reaction / Comm: Pt has received blood in the past without reaction. Date of Last Stent Placement:: 09/22/13 Smoking Status: Former smoker - Past Family History Mother Family Medical History: No Reported History Additional Family Medical History / Comment(s): Mother is 76 yrs old. Father Family Medical History: Diabetes Mellitus Additional Family Medical History / Comment(s): Father at the age of 42yrs- pt does not know reason. Medications and Allergies Home Medications Medication Instructions Recorded Confirmed Type Furosemide [Lasix] 80 mg PO BID 09/17/13 11/26/16 History Albuterol Inhaler [Ventolin Hfa 1 puff INHALATION RT-BID PRN 02/12/16 11/26/16 History Inhaler] Clopidogrel [Plavix] 75 mg PO DAILY tab 02/16/16 11/26/16 Rx Atorvastatin [Lipitor] 40 mg PO HS 07/16/16 11/26/16 History Insulin Aspart [NovoLOG Flexpen] See Protocol SQ AC-TID 07/16/16 11/26/16 History ALPRAZolam [Xanax] 0.25 mg PO HS PRN 07/29/16 11/26/16 History Aspirin EC [Ecotrin Low Dose] 81 mg PO DAILY 10/30/16 11/26/16 History Folic Acid-Vit B Complex-Vit C 1 cap PO DAILY 10/30/16 11/26/16 History [Nephrocaps] Insulin Glargine,Hum.rec.anlog 38 units SQ HS 10/30/16 11/26/16 History [Toujeo Solostar] Nitroglycerin Sl Tabs [Nitrostat] 0.4 mg SUBLINGUAL Q5M PRN 10/30/16 11/26/16 History Sevelamer [Renvela] 2,400 mg PO AC-TID 10/30/16 11/26/16 History amLODIPine [Norvasc] 5 mg PO DAILY 10/30/16 11/26/16 History Temazepam [Restoril] 15 mg PO HS PRN #15 cap 11/01/16 11/26/16 Rx Metoprolol Succinate (ER) [Toprol 50 mg PO DAILY 11/26/16 11/26/16 History Xl] Allergies Allergy/AdvReac Type Severity Reaction Status Date / Time clonidine Allergy Anaphylaxis Verified 11/26/16 18:21 Iodinated Contrast- Oral and Allergy Anaphylaxis Verified 11/26/16 18:21 IV Dye iodine Allergy Anaphylaxis Verified 11/26/16 18:21 Penicillins Allergy Rash/Hives Verified 11/26/16 18:21 shellfish derived Allergy Anaphylaxis Verified 11/26/16 18:21 Physical Exam Vitals: Vital Signs Temp Pulse Resp BP BP Pulse Ox 11/28/16 04:00 97.8 F 85 18 138/59 97 11/28/16 00:00 97.7 F 88 18 144/62 99 11/27/16 20:00 18 11/27/16 19:50 98.3 F 89 18 146/73 97 11/27/16 16:00 98.4 F 92 18 133/48 94 L 11/27/16 12:00 98.9 F 84 18 128/57 95 Intake and Output 11/27/16 11/28/16 11/28/16 22:59 06:59 14:59 Intake Total 551.592 0 506.22 Balance 551.592 0 506.22 Intake: Intake, IV Titration 311.592 0 266.22 Amount Diltiazem 125 mg In 0 Sodium Chloride 0.9% 100 ml @ 5 MG/HR 5 mls/hr IV .Q24H [facility] Rx#:[id number] Heparin Sodium,Porcine/ 311.592 266.22 D5w Pmx 25,000 unit In Dextrose/Water 1 500ml. bag @ 12 UNITS/KG/HR 16. 43 mls/hr IV .Q24H [facility] Rx #:[id number] Oral 240 240 Other: Voiding Method Toilet Toilet # Voids 2 1 Weight 69.3 kg General appearance: The patient is alert, oriented, in no acute distress. HET: Head is normocephalic and atraumatic. Pupils are equal and reactive. Oropharynx is clear without lesions. Neck: Supple without lymphadenopathy. Trachea midline. Heart: S1 S2. Regular rate and rhythm. Lungs: No crackles or wheezes are heard. Abdomen: Soft, nontender, nondistended with bowel sounds. No peritoneal signs. No palpable organomegaly or masses. Extremities: Normal skin color and turgor. No cyanosis, rash, ulceration, clubbing, or edema. Radial and pedal pulses are 2/4 bilaterally. Neurological: No focal deficits. Strength and sensation are grossly intact. Rectal: No masses. No blood. Yellow stool on finger. Results CBC & Chem 7: 11/28/16 05:52 11/28/16 05:52 Labs: Abnormal Lab Results - Last 24 Hours (Table) 11/27/16 11/27/16 11/27/16 Range/Units 11:37 12:44 17:01 RBC (3.80-5.40) m/uL Hgb (11.4-16.0) gm/dL Hct (34.0-46.0) % RDW (11.5-15.5) % APTT 50.1 H (22.0-30.0) sec Sodium (137-145) mmol/L Chloride (98-107) mmol/L BUN (7-17) mg/dL Creatinine (0.52-1.04) mg/dL Glucose (74-99) mg/dL POC Glucose (mg/dL) 273 H 308 H (75-99) mg/dL Hemoglobin A1c (4.2-6.1) % Calcium (8.4-10.2) mg/dL 11/27/16 11/28/16 11/28/16 Range/Units 21:03 05:52 05:52 RBC 2.90 L (3.80-5.40) m/uL Hgb 8.8 L (11.4-16.0) gm/dL Hct 28.0 L (34.0-46.0) % RDW 21.9 H (11.5-15.5) % APTT (22.0-30.0) sec Sodium 135 L (137-145) mmol/L Chloride 92 L (98-107) mmol/L BUN 52 H (7-17) mg/dL Creatinine 7.90 H* (0.52-1.04) mg/dL Glucose 262 H (74-99) mg/dL POC Glucose (mg/dL) 259 H (75-99) mg/dL Hemoglobin A1c (4.2-6.1) % Calcium 8.3 L (8.4-10.2) mg/dL 11/28/16 11/28/16 11/28/16 Range/Units 05:52 05:52 05:54 RBC (3.80-5.40) m/uL Hgb (11.4-16.0) gm/dL Hct (34.0-46.0) % RDW (11.5-15.5) % APTT 82.4 H (22.0-30.0) sec Sodium (137-145) mmol/L Chloride (98-107) mmol/L BUN (7-17) mg/dL Creatinine (0.52-1.04) mg/dL Glucose (74-99) mg/dL POC Glucose (mg/dL) 277 H (75-99) mg/dL Hemoglobin A1c 8.3 H (4.2-6.1) % Calcium (8.4-10.2) mg/dL Assessment and Plan (1) Anemia Narrative/Plan: Chronic secondary to underlying chronic kidney disease no evidence of active GI bleed at this time. Status: Acute (2) Non-ST elevated myocardial infarction Status: Acute (3) End stage renal disease on dialysis Status: Acute (4) H/O: GI bleed Status: Acute Plan: 1. Case was discussed with children's choir director Dr. Nobles. At this time recommend repeating CBC this afternoon and review. Yellow colored stool on rectal exam with no additional clinical evidence to suggest active GI bleed at this time. Benefits of Coumadin at this time outweigh the risks therefore would be agreeable to start Coumadin today and observe. If patient has a precipitous drop in CBC or develops signs of overt GI bleeding will evaluate and treat accordingly. Dr. Nobles is agreeable with this plan of care. Avoid constipation stool softeners twice daily. GI prophylaxis. We'll follow closely with you. Endoscopic exams will be contingent on clinical course. Thank you for this kind referral and the opportunity to participate in the care of your patient. This consultation was discussed with Dr. Reece. The impression and plan of care have been directed as dictated.
[2016-11-28 12:21] LABS: Glucose,Whole Blood 370 mg/dL (75-99)
[2016-11-28] MEDS: ACETAMINOPHEN TAB 325 MG TAB PO PRN (12:54)
[2016-11-28 14:02] LABS: Anisocytosis Moderate; Basophils % (A) 0 %; CHCM 32.3; Eosinophils # (A) 0.2 k/uL (0-0.7); Eosinophils % (A) 3 %; HDW 3.09; HGB 10.1 gm/dL (11.4-16.0); Hypochromasia Slight; Luc # (Auto) 0.14; Luc % (Auto) 2; Lymphocytes # (A) 0.8 k/uL (1.0-4.8); Lymphocytes % (A) 15 %; MCH 30.4 pg (25.0-35.0); MCHC 31.5 g/dL (31.0-37.0); MCV 96.6 fL (80.0-100.0); Macrocytosis Moderate; Mean Platelet Volume 7.6; Monocytes # (A) 0.3 k/uL (0-1.0); Monocytes % (A) 5 %; Neutrophils # (A) 4.2 k/uL (1.3-7.7); Neutrophils % (A) 75 %; RBC 3.31 m/uL (3.80-5.40); RDW 22.9 % (11.5-15.5); WBC 5.6 k/uL (3.8-10.6); WBC (Perox) 6.18
[2016-11-28 14:16] LABS: Iron Saturation 37.36 (12.00-45.00)
[2016-11-28 16:42] LABS: Glucose,Whole Blood 292 mg/dL (75-99)
[2016-11-28] MEDS: HEPARIN SODIUM,PORCINE/D5W PMX 25,000 UNIT in DEXTROSE/WATER 1 500ML.BAG IV SCH (17:36)
[2016-11-28] MEDS ORDERED: WARFARIN 5 MG TAB PO ONE (18:00)
[2016-11-28] MEDS: diphenhydrAMINE 25 MG CAP PO PRN (21:16)
[2016-11-28 21:24] LABS: Glucose,Whole Blood 143 mg/dL (75-99)
--- NOTE | 2016-11-28 23:00 | P.PN ---
Subjective Principal diagnosis: New onset atrial fibrillation This is a 56-year-old female with a known history of ESRD on hemodialysis Thursday and Thursday, coronary artery disease with history of stent placement in July 2016 and peripheral vascular disease and also multiple other medical problems was sent to ER with hypotension. Patient states she went to dialysis today after dialysis she noted that her blood pressure was low and she was feeling a little weak and felt as though her vision was slightly blurred. Patient also felt palpitations. Patient decided come to the emergency department. Patient states blood pressure is still low just prior to arrival it was 80 systolic. Patient denies any difficulty breathing or shortness of breath. Patient denies any chest pain. Patient denies abdominal pain patient denies nausea vomiting or diarrhea. Patient denies any recent fever chills per patient denies headache. Patient denies lightheadedness dizziness or near syncopal episode. Patient was found to have atrial fibrillation when she was in the ER. Patient was started on Cardizem drip and to converted back to sinus rhythm. Patient was also found to have elevated troponin level went up to 6.58. Cardiology has been consulted. Currently patient denied any chest pain. On 11/28/2016 Patient's hemoglobin dropped from 11.1 to 8.8 today which is increased to 10.1 on repeat CBC. Patient denied any rectal bleed or dark color stools. Patient does have history of colonoscopy and found to have AV malformations in 2016. Patient was also given a epogen. Patient will be getting hemodialysis today. Patient will be continued on heparin drip. Objective - Vital Signs Vital signs: Vital Signs Temp 97.9 F 11/28/16 16:00 Pulse 86 11/28/16 16:00 Resp 16 11/28/16 16:00 BP 125/52 11/28/16 16:00 Pulse Ox 95 11/28/16 16:00 Intake & Output 11/28/16 11/28/16 11/29/16 06:59 18:59 06:59 Intake Total 311.592 980.000 Balance 311.592 980.000 Weight 69.3 kg Intake: Intake, IV Titration 311.592 500.000 Amount Diltiazem 125 mg In 0 Sodium Chloride 0.9% 100 ml @ 5 MG/HR 5 mls/hr IV .Q24H [facility] Rx#:[id number] Heparin Sodium,Porcine/ 311.592 500.000 D5w Pmx 25,000 unit In Dextrose/Water 1 500ml. bag @ 12 UNITS/KG/HR 16. 43 mls/hr IV .Q24H [facility] Rx #:[id number] Oral 480 Other: Voiding Method Toilet Toilet # Voids 1 1 - Exam Patient is lying in the bed comfortably, no acute distress, awake alert and oriented.. HEENT: Normocephalic. Neck is supple. Pupils reactive. Nostrils clear. Oral cavity is moist. Ears reveal no drainage. Neck reveals no JVD, carotid bruits, or thyromegaly. CHEST EXAMINATION: Trachea is central. Symmetrical expansion. Lung perez clear to auscultation and percussion. CARDIAC: Normal S1, S2 with no gallops. No murmurs ABDOMEN: Soft. Bowel sounds normal. No organomegaly. No abdominal bruits. Extremities reveal no edema. No clubbing or cyanosis Neurologically awake, alert, oriented x3 with well-coordinated movements. Skin: no rash or skin lesions Musculoskeletal: no joint swelling or deformity. - Labs CBC & Chem 7: 11/28/16 13:52 11/28/16 05:52 Labs: Abnormal Lab Results - Last 24 Hours (Table) 11/28/16 11/28/16 11/28/16 Range/Units 05:52 05:52 05:52 RBC 2.90 L (3.80-5.40) m/uL Hgb 8.8 L (11.4-16.0) gm/dL Hct 28.0 L (34.0-46.0) % RDW 21.9 H (11.5-15.5) % Lymphocytes # (1.0-4.8) k/uL APTT (22.0-30.0) sec Sodium 135 L (137-145) mmol/L Chloride 92 L (98-107) mmol/L BUN 52 H (7-17) mg/dL Creatinine 7.90 H* (0.52-1.04) mg/dL Glucose 262 H (74-99) mg/dL POC Glucose (mg/dL) (75-99) mg/dL Hemoglobin A1c 8.3 H (4.2-6.1) % Calcium 8.3 L (8.4-10.2) mg/dL TIBC (228-460) ug/dL Ferritin (10.0-291.0) ng/mL 11/28/16 11/28/16 11/28/16 Range/Units 05:52 05:52 05:54 RBC (3.80-5.40) m/uL Hgb (11.4-16.0) gm/dL Hct (34.0-46.0) % RDW (11.5-15.5) % Lymphocytes # (1.0-4.8) k/uL APTT 82.4 H (22.0-30.0) sec Sodium (137-145) mmol/L Chloride (98-107) mmol/L BUN (7-17) mg/dL Creatinine (0.52-1.04) mg/dL Glucose (74-99) mg/dL POC Glucose (mg/dL) 277 H (75-99) mg/dL Hemoglobin A1c (4.2-6.1) % Calcium (8.4-10.2) mg/dL TIBC 182 L (228-460) ug/dL Ferritin 1443.3 H (10.0-291.0) ng/mL 11/28/16 11/28/16 11/28/16 Range/Units 12:08 13:52 13:52 RBC 3.31 L (3.80-5.40) m/uL Hgb 10.1 L (11.4-16.0) gm/dL Hct 32.0 L (34.0-46.0) % RDW 22.9 H (11.5-15.5) % Lymphocytes # 0.8 L (1.0-4.8) k/uL APTT 43.6 H (22.0-30.0) sec Sodium (137-145) mmol/L Chloride (98-107) mmol/L BUN (7-17) mg/dL Creatinine (0.52-1.04) mg/dL Glucose (74-99) mg/dL POC Glucose (mg/dL) 370 H (75-99) mg/dL Hemoglobin A1c (4.2-6.1) % Calcium (8.4-10.2) mg/dL TIBC (228-460) ug/dL Ferritin (10.0-291.0) ng/mL 09/15/17 09/15/17 Range/Units 16:40 21:15 RBC (3.80-5.40) m/uL Hgb (11.4-16.0) gm/dL Hct (34.0-46.0) % RDW (11.5-15.5) % Lymphocytes # (1.0-4.8) k/uL APTT (22.0-30.0) sec Sodium (137-145) mmol/L Chloride (98-107) mmol/L BUN (7-17) mg/dL Creatinine (0.52-1.04) mg/dL Glucose (74-99) mg/dL POC Glucose (mg/dL) 292 H 143 H (75-99) mg/dL Hemoglobin A1c (4.2-6.1) % Calcium (8.4-10.2) mg/dL TIBC (228-460) ug/dL Ferritin (10.0-291.0) ng/mL Assessment and Plan Plan: #1 new onset atrial fibrillation. Paroxysmal. Currently in sinus rhythm #2 acute non-ST elevated IA with elevated troponin level up to 6.58 #3 recent history of angioplasty in July 2016 with difficult catheterization. #4 ESRD on hemodialysis Thursday. #5 peripheral vascular disease #6 hypertension #7 hyperlipidemia #8 anemia of chronic disease. Ruled out iron deficiency. Hemoglobin 11.1--8.8 this morning Plan: Patient will be continued on telemetry monitoring and continue with heparin drip at this time. Patient did have a drop in hemoglobin. Patient was started on Neupogen. Patient does not have any active GI bleed. Once the hemoglobin is stable patient will be started on Coumadin for anticoagulation. Cardiology is following this patient. Patient will be getting hemodialysis today. Continue the current management and follow closely. Patient will need full anticoagulation possibly with Coumadin upon discharge. Further recommendations based on the clinical course. Time with Patient: Greater than 30
[2016-11-28] MEDS ORDERED: GELATIN SPONGE,ABSORB (SMALL) 1 EACH SPONGE ONE (23:30)
[2016-11-28] MEDS: ATORVASTATIN 40 MG TAB PO SCH (23:39)
[2016-11-28] MEDS: SENNOSIDES-DOCUSATE SODIUM 1 EACH TAB PO SCH (23:39)
[2016-11-28] MEDS: FAMOTIDINE 20 MG TAB PO SCH (23:40)
[2016-11-28] MEDS: METOPROLOL SUCCINATE (ER) 50 MG TAB.ER.24H PO SCH (23:40)
[2016-11-29] MEDS: ALPRAZolam 0.25 MG TAB PO PRN ×2 (00:11→20:45)
[2016-11-29] MEDS: ACETAMINOPHEN TAB 325 MG TAB PO PRN (00:18)
[2016-11-29] MEDS: INSULIN LISPRO (humaLOG) 300 UNIT/3 ML VIAL SQ SCH ×5 (00:18→21:38)
[2016-11-29 00:26] LABS: Glucose,Whole Blood 179 mg/dL (75-99)
[2016-11-29 06:07] LABS: Anisocytosis Moderate; Basophils % (A) 0 %; CH 30.7; CHCM 32.3; Eosinophils # (A) 0.2 k/uL (0-0.7); Eosinophils % (A) 3 %; HCT 28.9 % (34.0-46.0); HDW 3.13; Hypochromasia Slight; Luc # (Auto) 0.11; Luc % (Auto) 2; Lymphocytes # (A) 0.8 k/uL (1.0-4.8); Lymphocytes % (A) 13 %; MCH 29.9 pg (25.0-35.0); MCHC 31.2 g/dL (31.0-37.0); MCV 95.8 fL (80.0-100.0); Macrocytosis Slight; Mean Platelet Volume 7.8; Monocytes # (A) 0.3 k/uL (0-1.0); Monocytes % (A) 5 %; Neutrophils # (A) 4.3 k/uL (1.3-7.7); Neutrophils % (A) 76 %; RBC 3.01 m/uL (3.80-5.40); RDW 22.6 % (11.5-15.5); WBC 5.6 k/uL (3.8-10.6); WBC (Perox) 5.99
[2016-11-29 06:28] LABS: INR 1.1 (<1.2); Prothrombin Time 10.9 sec (9.0-12.0)
[2016-11-29] MEDS: SEVELAMER 800 MG TAB PO SCH ×4 (06:28→18:23)
[2016-11-29 06:45] LABS: Glucose,Whole Blood 244 mg/dL (75-99)
[2016-11-29 06:46] LABS: Partial Thromboplastin Time 128.6 sec (22.0-30.0)
[2016-11-29 06:57] LABS: Calcium 8.4 mg/dL (8.4-10.2)
[2016-11-29 06:59] LABS: Potassium 4.1 mmol/L (3.5-5.1)
[2016-11-29] MEDS: FUROSEMIDE 80 MG TAB PO SCH ×2 (10:04→20:45)
[2016-11-29] MEDS: amLODIPine 5 MG TAB PO SCH (10:04)
[2016-11-29] MEDS: CLOPIDOGREL 75 MG TAB PO SCH (10:04)
[2016-11-29] MEDS: METOPROLOL SUCCINATE (ER) 50 MG TAB.ER.24H PO SCH (10:04)
[2016-11-29] MEDS: ASPIRIN 81 MG PO SCH (10:05)
[2016-11-29] MEDS: SENNOSIDES-DOCUSATE SODIUM 1 EACH TAB PO SCH ×2 (10:05→20:45)
[2016-11-29] MEDS: FOLIC ACID-VIT B COMPLEX-VIT C 1 CAP PO SCH (10:05)
--- NOTE | 2016-11-29 11:00 | P.PN ---
Subjective Principal diagnosis: Non-STEMI This is a pleasant 56-year-old -[place] female with known history of coronary artery disease, most recently patient underwent angioplasty of the ramus intermedius in July of this year. She also has history of peripheral vascular disease, end-stage renal disease on dialysis, hypertension, diabetes, prior CVA, hyperlipidemia. Patient presented to the hospital on this admission with a non-ST elevation myocardial infarction. Her case was discussed with Dr. Calixto her primary print shop assistant and the decision was made to maximize medical therapy. Patient also went into atrial fibrillation with rapid ventricular response and currently is in normal sinus rhythm. We did have a lengthy discussion with the patient regarding initiating anticoagulation in the form of Coumadin. She received her first dose yesterday. Her INR today is 1.1. Sodium 128, potassium 4.1, BUN 23, creatinine 4.6. hgb 9.0. Patient is sitting up in the chair at the time of my examination, denies any chest pain, breathing is stable. She continues to be on IV heparin, we will give her 5 mg of Coumadin today. Objective - Vital Signs Vital signs: Vital Signs Temp 97.3 F L 11/29/16 08:00 Pulse 81 11/29/16 08:00 Resp 16 11/29/16 08:00 BP 152/68 11/29/16 08:00 Pulse Ox 100 11/29/16 08:00 Intake & Output 11/28/16 11/29/16 11/29/16 18:59 06:59 18:59 Intake Total 980.000 144 507.425 Balance 980.000 144 507.425 Weight 69.7 kg Intake: IV 144 Heparin Sodium,Porcine/ 144 D5w Pmx 25,000 unit In Dextrose/Water 1 500ml. bag @ 12 UNITS/KG/HR 16. 43 mls/hr IV .Q24H [facility] Rx #:[id number] Intake, IV Titration 500.000 357.425 Amount Heparin Sodium,Porcine/ 500.000 357.425 D5w Pmx 25,000 unit In Dextrose/Water 1 500ml. bag @ 12 UNITS/KG/HR 16. 43 mls/hr IV .Q24H [facility] Rx #:[id number] Oral 480 150 Other: Voiding Method Toilet Toilet Toilet # Voids 1 - Exam PHYSICAL EXAMINATION: HEENT: Head is atraumatic, normocephalic. Pupils equal, round. Neck is supple. There is no elevated jugular venous pressure. HEART EXAMINATION: S1 and S2 1 systolic murmur is heard. CHEST EXAMINATION: Lungs are clear to auscultation and precussion. No chest wall tenderness is noted on palpation or with deep breathing. ABDOMEN: Soft, nontender. Bowel sounds are heard. No organomegaly noted. EXTREMITIES: 2+ peripheral pulses with no evidence of peripheral edema and no calf tenderness noted]. NEUROLOGIC [patient is awake, alert and oriented -3.] . - Labs CBC & Chem 7: 11/29/16 05:27 11/29/16 05:27 Labs: Abnormal Lab Results - Last 24 Hours (Table) 11/28/16 11/28/16 11/28/16 Range/Units 05:52 12:08 13:52 RBC (3.80-5.40) m/uL Hgb (11.4-16.0) gm/dL Hct (34.0-46.0) % RDW (11.5-15.5) % Lymphocytes # (1.0-4.8) k/uL APTT 43.6 H (22.0-30.0) sec Sodium (137-145) mmol/L Chloride (98-107) mmol/L BUN (7-17) mg/dL Creatinine (0.52-1.04) mg/dL Glucose (74-99) mg/dL POC Glucose (mg/dL) 370 H (75-99) mg/dL TIBC 182 L (228-460) ug/dL Ferritin 1443.3 H (10.0-291.0) ng/mL 11/28/16 11/28/16 11/28/16 Range/Units 13:52 16:40 21:15 RBC 3.31 L (3.80-5.40) m/uL Hgb 10.1 L (11.4-16.0) gm/dL Hct 32.0 L (34.0-46.0) % RDW 22.9 H (11.5-15.5) % Lymphocytes # 0.8 L (1.0-4.8) k/uL APTT (22.0-30.0) sec Sodium (137-145) mmol/L Chloride (98-107) mmol/L BUN (7-17) mg/dL Creatinine (0.52-1.04) mg/dL Glucose (74-99) mg/dL POC Glucose (mg/dL) 292 H 143 H (75-99) mg/dL TIBC (228-460) ug/dL Ferritin (10.0-291.0) ng/mL 11/28/16 11/29/16 11/29/16 Range/Units 22:40 00:13 05:27 RBC (3.80-5.40) m/uL Hgb (11.4-16.0) gm/dL Hct (34.0-46.0) % RDW (11.5-15.5) % Lymphocytes # (1.0-4.8) k/uL APTT 67.2 H 128.6 H* (22.0-30.0) sec Sodium (137-145) mmol/L Chloride (98-107) mmol/L BUN (7-17) mg/dL Creatinine (0.52-1.04) mg/dL Glucose (74-99) mg/dL POC Glucose (mg/dL) 179 H (75-99) mg/dL TIBC (228-460) ug/dL Ferritin (10.0-291.0) ng/mL 11/29/16 11/29/16 11/29/16 Range/Units 05:27 05:27 06:24 RBC 3.01 L (3.80-5.40) m/uL Hgb 9.0 L (11.4-16.0) gm/dL Hct 28.9 L (34.0-46.0) % RDW 22.6 H (11.5-15.5) % Lymphocytes # 0.8 L (1.0-4.8) k/uL APTT (22.0-30.0) sec Sodium 128 L (137-145) mmol/L Chloride 92 L (98-107) mmol/L BUN 23 H (7-17) mg/dL Creatinine 4.60 H (0.52-1.04) mg/dL Glucose 354 H (74-99) mg/dL POC Glucose (mg/dL) 244 H (75-99) mg/dL TIBC (228-460) ug/dL Ferritin (10.0-291.0) ng/mL Assessment and Plan (1) CAD (coronary artery disease) Status: Acute (2) Anemia Status: Acute (3) End stage renal disease on dialysis Status: Acute (4) New onset a-fib Status: Acute (5) Non-ST elevated myocardial infarction Status: Acute (6) AVM (arteriovenous malformation) of colon Status: Acute (7) Acute blood loss anemia Status: Acute (8) Anemia Status: Acute (9) Diabetes mellitus Status: Acute (10) ESRD (end stage renal disease) Status: Acute (11) H/O: CVA (cerebrovascular accident) Status: Acute (12) HTN (hypertension) Status: Acute (13) Hyperlipemia Status: Acute Plan: Patient was seen in consultation by GI service and cleared to be initiated on Coumadin. She received her first dose yesterday, we'll give her 5 mg of Coumadin today. DNP note has been reviewed, I agree with a documented findings and plan of care. Patient was seen and examined.
[2016-11-29] MEDS: HEPARIN SODIUM,PORCINE/D5W PMX 25,000 UNIT in DEXTROSE/WATER 1 500ML.BAG IV SCH (11:23)
[2016-11-29] MEDS ORDERED: HYDROmorphone 1 MG/ML 1 ML SYRINGE IVP STA (11:46)
[2016-11-29 12:10] LABS: Glucose,Whole Blood 255 mg/dL (75-99)
[2016-11-29] MEDS ORDERED: FUROSEMIDE 10 MG/ML 4 ML VIAL ONE (13:05)
[2016-11-29] MEDS ORDERED: FUROSEMIDE 10 MG/ML 4 ML VIAL IV ONE (13:15)
--- NOTE | 2016-11-29 14:11 | XR ---
EXAMINATION TYPE: XR chest 1V portable DATE OF EXAM: 11/29/2016 COMPARISON: 11/26/2016 HISTORY: Congestive heart failure and wet lung sounds TECHNIQUE: Single frontal view of the chest is obtained. FINDINGS: There is interval development of diffuse moderate interstitial and mild alveolar pulmonary edema with cephalization and bibasilar airspace disease. No discrete pleural effusions. Cardiac silh ouette is mildly enlarged. Degenerative changes of the thoracic spine and acromioclavicular joints ar e noted. No pneumothorax. IMPRESSION: Pulmonary edema and bibasilar airspace disease, likely on the bases of decompensated con gestive heart failure. Findings are new in comparison to the prior exam.
[2016-11-29 17:01] LABS: Glucose,Whole Blood 161 mg/dL (75-99)
[2016-11-29] MEDS ORDERED: INSULIN LISPRO (humaLOG) 300 UNIT/3 ML VIAL SQ SCH (17:30)
--- NOTE | 2016-11-29 17:39 | P.PN ---
Subjective Patient is seen in follow-up for end-stage renal disease. She is maintained on hemodialysis on a Thursday schedule. She has a left upper extremity AV raft. Patient presented to the hospital with A. fib with RVR and she required a Cardizem drip. Her heart rate is stable. This morning she became acutely dyspneic. Chest x-ray revealed pulmonary edema. She did undergo hemodialysis with 2 L ultrafiltration yesterday. She is again undergoing emergent hemodialysis and is feeling much better compared to the morning. Vital signs are stable. General: The patient appeared well nourished and normally developed. HEENT: Head exam is unremarkable. Neck is without jugular venous distension. LUNGS: Lungs are clear to auscultation and percussion. Breath sounds decreased. HEART: Rate and Rhythm are regular. First and second heart sounds normal. No murmurs, rubs or gallops. ABDOMEN: Abdominal exam reveals normal bowel sounds. Non-tender and non- distended. No evidence of peritonitis. EXTREMITITES: No clubbing, cyanosis, or edema. Objective - Vital Signs Vital signs: Vital Signs Temp 96.8 F L 11/29/16 15:53 Pulse 80 11/29/16 15:53 Resp 17 11/29/16 15:53 BP 110/58 11/29/16 15:53 Pulse Ox 100 11/29/16 15:53 Intake & Output 11/28/16 11/29/16 11/29/16 18:59 06:59 18:59 Intake Total 980.000 144 736.477 Output Total 300 Balance 980.000 144 436.477 Weight 69.7 kg Intake: IV 144 162.4 Heparin Sodium,Porcine/ 144 162.4 D5w Pmx 25,000 unit In Dextrose/Water 1 500ml. bag @ 12 UNITS/KG/HR 16. 43 mls/hr IV .Q24H [facility] Rx #:[id number] Intake, IV Titration 500.000 424.077 Amount Heparin Sodium,Porcine/ 500.000 424.077 D5w Pmx 25,000 unit In Dextrose/Water 1 500ml. bag @ 12 UNITS/KG/HR 16. 43 mls/hr IV .Q24H [facility] Rx #:[id number] Oral 480 150 Output: Urine 100 Emesis 200 Other: Voiding Method Toilet Toilet Toilet # Voids 1 1 - Labs CBC & Chem 7: 11/29/16 05:27 11/29/16 05:27 Labs: Abnormal Lab Results - Last 24 Hours (Table) 11/28/16 11/28/16 11/29/16 Range/Units 21:15 22:40 00:13 RBC (3.80-5.40) m/uL Hgb (11.4-16.0) gm/dL Hct (34.0-46.0) % RDW (11.5-15.5) % Lymphocytes # (1.0-4.8) k/uL APTT 67.2 H (22.0-30.0) sec Sodium (137-145) mmol/L Chloride (98-107) mmol/L BUN (7-17) mg/dL Creatinine (0.52-1.04) mg/dL Glucose (74-99) mg/dL POC Glucose (mg/dL) 143 H 179 H (75-99) mg/dL 11/29/16 11/29/16 11/29/16 Range/Units 05:27 05:27 05:27 RBC 3.01 L (3.80-5.40) m/uL Hgb 9.0 L (11.4-16.0) gm/dL Hct 28.9 L (34.0-46.0) % RDW 22.6 H (11.5-15.5) % Lymphocytes # 0.8 L (1.0-4.8) k/uL APTT 128.6 H* (22.0-30.0) sec Sodium 128 L (137-145) mmol/L Chloride 92 L (98-107) mmol/L BUN 23 H (7-17) mg/dL Creatinine 4.60 H (0.52-1.04) mg/dL Glucose 354 H (74-99) mg/dL POC Glucose (mg/dL) (75-99) mg/dL 11/29/16 11/29/16 11/29/16 Range/Units 06:24 12:01 16:56 RBC (3.80-5.40) m/uL Hgb (11.4-16.0) gm/dL Hct (34.0-46.0) % RDW (11.5-15.5) % Lymphocytes # (1.0-4.8) k/uL APTT (22.0-30.0) sec Sodium (137-145) mmol/L Chloride (98-107) mmol/L BUN (7-17) mg/dL Creatinine (0.52-1.04) mg/dL Glucose (74-99) mg/dL POC Glucose (mg/dL) 244 H 255 H 161 H (75-99) mg/dL Assessment and Plan Plan: Assessment: #1. End-stage renal disease maintained on hemodialysis on a Thursday schedule via eft upper extremity AV graft. #2. Paroxysmal atrial fibrillation now off Cardizem drip. She has been started on anticoagulation. #3. Anemia of chronic kidney disease. Iron replete. #4. Hypertension with chronic kidney disease. Controlled. #5. Chronic kidney disease mineral bone disease. #6. History of coronary artery disease status post stent placement. #7. Acute pulmonary edema. Plan: Hemodialysis today with goal 2-3 liters ultrafiltration. Maintain Aranesp. Maintain Renvela with meals. Check phosphorus level. Cardiology following. Avoid Dilaudid has dyspnea came upon shortly after receiving Dilaudid.
[2016-11-29] MEDS ORDERED: GELATIN SPONGE,ABSORB (SMALL) 1 EACH SPONGE ONE (17:45)
[2016-11-29] MEDS ORDERED: WARFARIN 5 MG TAB PO ONE (18:00)
[2016-11-29] MEDS: ATORVASTATIN 40 MG TAB PO SCH (20:45)
[2016-11-29] MEDS: FAMOTIDINE 20 MG TAB PO SCH (20:45)
[2016-11-29] MEDS: INSULIN GLARGINE 100 UNIT/ML 10 ML VIAL SQ SCH (20:46)
[2016-11-29] MEDS: diphenhydrAMINE 25 MG CAP PO PRN (21:10)
[2016-11-29 21:21] LABS: Glucose,Whole Blood 224 mg/dL (75-99)
[2016-11-29] MEDS: HEPARIN SODIUM,PORCINE 5,000 UNIT/ML 1 ML VIAL IV PRN (23:57)
[2016-11-30 06:21] LABS: INR 1.3 (<1.2); Prothrombin Time 12.6 sec (9.0-12.0)
[2016-11-30 06:38] LABS: Glucose,Whole Blood 246 mg/dL (75-99)
[2016-11-30 06:40] LABS: Partial Thromboplastin Time >200.0 sec (22.0-30.0)
[2016-11-30] MEDS: SEVELAMER 800 MG TAB PO SCH ×3 (06:40→17:05)
[2016-11-30] MEDS: INSULIN LISPRO (humaLOG) 300 UNIT/3 ML VIAL SQ SCH ×4 (06:40→22:09)
[2016-11-30] MEDS: SENNOSIDES-DOCUSATE SODIUM 1 EACH TAB PO SCH ×2 (08:48→20:14)
[2016-11-30] MEDS: METOPROLOL SUCCINATE (ER) 50 MG TAB.ER.24H PO SCH (08:49)
[2016-11-30] MEDS: CLOPIDOGREL 75 MG TAB PO SCH (08:49)
[2016-11-30] MEDS: FUROSEMIDE 80 MG TAB PO SCH ×2 (08:49→20:14)
[2016-11-30] MEDS: ASPIRIN 81 MG PO SCH (08:50)
[2016-11-30] MEDS: amLODIPine 5 MG TAB PO SCH (08:50)
[2016-11-30] MEDS: FOLIC ACID-VIT B COMPLEX-VIT C 1 CAP PO SCH (08:50)
--- NOTE | 2016-11-30 10:50 | P.PN ---
Subjective Patient is seen in follow-up for end-stage renal disease. She is maintained on hemodialysis on a Thursday schedule. She has a left upper extremity AV raft. Patient presented to the hospital with A. fib with RVR and she required a Cardizem drip. Her heart rate is stable. . Chest x-ray revealed pulmonary ed she became acutely dyspneic yesterday with evidence of pulmonary edema and underwent hemodialysis with 2 L ultrafiltration. She's feeling much better today. Vital signs are stable. General: The patient appeared well nourished and normally developed. HEENT: Head exam is unremarkable. Neck is without jugular venous distension. LUNGS: Lungs are clear to auscultation and percussion. Breath sounds decreased. HEART: Rate and Rhythm are regular. First and second heart sounds normal. No murmurs, rubs or gallops. ABDOMEN: Abdominal exam reveals normal bowel sounds. Non-tender and non- distended. No evidence of peritonitis. EXTREMITITES: No clubbing, cyanosis, or edema. Objective - Vital Signs Vital signs: Vital Signs Temp 97.2 F L 11/30/16 08:00 Pulse 99 11/30/16 08:00 Resp 17 11/30/16 08:00 BP 121/61 11/30/16 08:00 Pulse Ox 95 11/30/16 08:00 Intake & Output 11/29/16 11/30/16 11/30/16 18:59 06:59 18:59 Intake Total 736.477 255.19 211.786 Output Total 300 1 Balance 436.477 254.19 211.786 Weight 67.9 kg Intake: IV 162.4 Heparin Sodium,Porcine/ 162.4 D5w Pmx 25,000 unit In Dextrose/Water 1 500ml. bag @ 12 UNITS/KG/HR 16. 43 mls/hr IV .Q24H [facility] Rx #:[id number] Intake, IV Titration 424.077 255.19 211.786 Amount Heparin Sodium,Porcine/ 424.077 255.19 211.786 D5w Pmx 25,000 unit In Dextrose/Water 1 500ml. bag @ 12 UNITS/KG/HR 16. 43 mls/hr IV .Q24H [facility] Rx #:[id number] Oral 150 Output: Urine 100 1 Emesis 200 Other: Voiding Method Toilet Toilet Toilet # Voids 1 - Labs CBC & Chem 7: 11/29/16 05:27 11/29/16 05:27 Labs: Abnormal Lab Results - Last 24 Hours (Table) 11/29/16 11/29/16 11/29/16 Range/Units 05:27 12:01 16:56 PT (9.0-12.0) sec INR (<1.2) APTT (22.0-30.0) sec POC Glucose (mg/dL) 255 H 161 H (75-99) mg/dL Phosphorus 6.4 H (2.5-4.5) mg/dL 11/29/16 11/29/16 11/30/16 Range/Units 21:19 23:18 05:29 PT 12.6 H (9.0-12.0) sec INR 1.3 H (<1.2) APTT 31.8 H >200.0 H* (22.0-30.0) sec POC Glucose (mg/dL) 224 H (75-99) mg/dL Phosphorus (2.5-4.5) mg/dL 11/30/16 Range/Units 06:36 PT (9.0-12.0) sec INR (<1.2) APTT (22.0-30.0) sec POC Glucose (mg/dL) 246 H (75-99) mg/dL Phosphorus (2.5-4.5) mg/dL Assessment and Plan Plan: Assessment: #1. End-stage renal disease maintained on hemodialysis on a Thursday schedule via eft upper extremity AV graft. #2. Paroxysmal atrial fibrillation now off Cardizem drip. She has been started on anticoagulation. #3. Anemia of chronic kidney disease. Iron replete. #4. Hypertension with chronic kidney disease. Controlled. #5. Chronic kidney disease mineral bone disease. #6. History of coronary artery disease status post stent placement. #7. Acute pulmonary edema. Symptomatically improved postdialysis yesterday. Plan: Hemodialysis tomorrow with goal 2-3 liters ultrafiltration. Maintain Aranesp. Maintain Renvela with meals. Cardiology following. Avoid Dilaudid has dyspnea came upon shortly after receiving Dilaudid.
[2016-11-30 11:46] LABS: Glucose,Whole Blood 375 mg/dL (75-99)
[2016-11-30 16:55] LABS: Glucose,Whole Blood 340 mg/dL (75-99)
[2016-11-30] MEDS ORDERED: WARFARIN 5 MG TAB PO ONE (18:15)
[2016-11-30] MEDS: HEPARIN SODIUM,PORCINE/D5W PMX 25,000 UNIT in DEXTROSE/WATER 1 500ML.BAG IV SCH (20:12)
[2016-11-30] MEDS: INSULIN GLARGINE 100 UNIT/ML 10 ML VIAL SQ SCH (20:14)
[2016-11-30] MEDS: FAMOTIDINE 20 MG TAB PO SCH (20:14)
[2016-11-30] MEDS: ATORVASTATIN 40 MG TAB PO SCH (20:14)
[2016-11-30 20:50] LABS: Glucose,Whole Blood 292 mg/dL (75-99)
[2016-11-30] MEDS: ALPRAZolam 0.25 MG TAB PO PRN (22:08)
--- NOTE | 2016-12-01 00:08 | P.PN ---
Subjective Principal diagnosis: New onset atrial fibrillation This is a 56-year-old female with a known history of ESRD on hemodialysis Thursday and Thursday, coronary artery disease with history of stent placement in July 2016 and peripheral vascular disease and also multiple other medical problems was sent to ER with hypotension. Patient states she went to dialysis today after dialysis she noted that her blood pressure was low and she was feeling a little weak and felt as though her vision was slightly blurred. Patient also felt palpitations. Patient decided come to the emergency department. Patient states blood pressure is still low just prior to arrival it was 80 systolic. Patient denies any difficulty breathing or shortness of breath. Patient denies any chest pain. Patient denies abdominal pain patient denies nausea vomiting or diarrhea. Patient denies any recent fever chills per patient denies headache. Patient denies lightheadedness dizziness or near syncopal episode. Patient was found to have atrial fibrillation when she was in the ER. Patient was started on Cardizem drip and to converted back to sinus rhythm. Patient was also found to have elevated troponin level went up to 6.58. Cardiology has been consulted. Currently patient denied any chest pain. On 11/28/2016 Patient's hemoglobin dropped from 11.1 to 8.8 today which is increased to 10.1 on repeat CBC. Patient denied any rectal bleed or dark color stools. Patient does have history of colonoscopy and found to have AV malformations in 2016. Patient was also given a epogen. Patient will be getting hemodialysis today. Patient will be continued on heparin drip. 11/29/2016 Patient's hemoglobin is stable.. Patient developed shortness of breath and possibly ALLERGIC reaction to IV Dilaudid. Chest x-ray showed flash pulmonary edema. Patient was dialyzed emergently. Breathing status is improving now. No fever no chills. Now, was of abdominal pain no nausea no vomiting. All other review of systems negative except above Current medications reviewed Objective - Vital Signs Vital signs: Vital Signs Temp 97.8 F 11/29/16 12:00 Pulse 88 11/29/16 12:00 Resp 17 11/29/16 12:00 BP 167/76 11/29/16 12:00 Pulse Ox 100 11/29/16 12:00 Intake & Output 11/28/16 11/29/16 11/29/16 18:59 06:59 18:59 Intake Total 980.000 144 574.077 Output Total 100 Balance 980.000 144 474.077 Weight 69.7 kg Intake: IV 144 Heparin Sodium,Porcine/ 144 D5w Pmx 25,000 unit In Dextrose/Water 1 500ml. bag @ 12 UNITS/KG/HR 16. 43 mls/hr IV .Q24H [facility] Rx #:[id number] Intake, IV Titration 500.000 424.077 Amount Heparin Sodium,Porcine/ 500.000 424.077 D5w Pmx 25,000 unit In Dextrose/Water 1 500ml. bag @ 12 UNITS/KG/HR 16. 43 mls/hr IV .Q24H [facility] Rx #:[id number] Oral 480 150 Output: Urine 100 Other: Voiding Method Toilet Toilet Toilet # Voids 1 1 - Exam Patient is lying in the bed comfortably, no acute distress, awake alert and oriented.. HEENT: Normocephalic. Neck is supple. Pupils reactive. Nostrils clear. Oral cavity is moist. Ears reveal no drainage. Neck reveals no JVD, carotid bruits, or thyromegaly. CHEST EXAMINATION: Trachea is central. Symmetrical expansion. Bilateral basilar crackles positive and rhonchi.. CARDIAC: Normal S1, S2 with no gallops. No murmurs ABDOMEN: Soft. Bowel sounds normal. No organomegaly. No abdominal bruits. Extremities reveal no edema. No clubbing or cyanosis Neurologically awake, alert, oriented x3 with well-coordinated movements. Skin: no rash or skin lesions Musculoskeletal: no joint swelling or deformity. - Labs CBC & Chem 7: 11/29/16 05:27 11/29/16 05:27 Labs: Abnormal Lab Results - Last 24 Hours (Table) 11/28/16 11/28/16 11/28/16 Range/Units 05:52 13:52 13:52 RBC 3.31 L (3.80-5.40) m/uL Hgb 10.1 L (11.4-16.0) gm/dL Hct 32.0 L (34.0-46.0) % RDW 22.9 H (11.5-15.5) % Lymphocytes # 0.8 L (1.0-4.8) k/uL APTT 43.6 H (22.0-30.0) sec Sodium (137-145) mmol/L Chloride (98-107) mmol/L BUN (7-17) mg/dL Creatinine (0.52-1.04) mg/dL Glucose (74-99) mg/dL POC Glucose (mg/dL) (75-99) mg/dL TIBC 182 L (228-460) ug/dL Ferritin 1443.3 H (10.0-291.0) ng/mL 11/28/16 11/28/16 11/28/16 Range/Units 16:40 21:15 22:40 RBC (3.80-5.40) m/uL Hgb (11.4-16.0) gm/dL Hct (34.0-46.0) % RDW (11.5-15.5) % Lymphocytes # (1.0-4.8) k/uL APTT 67.2 H (22.0-30.0) sec Sodium (137-145) mmol/L Chloride (98-107) mmol/L BUN (7-17) mg/dL Creatinine (0.52-1.04) mg/dL Glucose (74-99) mg/dL POC Glucose (mg/dL) 292 H 143 H (75-99) mg/dL TIBC (228-460) ug/dL Ferritin (10.0-291.0) ng/mL 11/29/16 11/29/16 11/29/16 Range/Units 00:13 05:27 05:27 RBC 3.01 L (3.80-5.40) m/uL Hgb 9.0 L (11.4-16.0) gm/dL Hct 28.9 L (34.0-46.0) % RDW 22.6 H (11.5-15.5) % Lymphocytes # 0.8 L (1.0-4.8) k/uL APTT 128.6 H* (22.0-30.0) sec Sodium (137-145) mmol/L Chloride (98-107) mmol/L BUN (7-17) mg/dL Creatinine (0.52-1.04) mg/dL Glucose (74-99) mg/dL POC Glucose (mg/dL) 179 H (75-99) mg/dL TIBC (228-460) ug/dL Ferritin (10.0-291.0) ng/mL 11/29/16 11/29/16 11/29/16 Range/Units 05:27 06:24 12:01 RBC (3.80-5.40) m/uL Hgb (11.4-16.0) gm/dL Hct (34.0-46.0) % RDW (11.5-15.5) % Lymphocytes # (1.0-4.8) k/uL APTT (22.0-30.0) sec Sodium 128 L (137-145) mmol/L Chloride 92 L (98-107) mmol/L BUN 23 H (7-17) mg/dL Creatinine 4.60 H (0.52-1.04) mg/dL Glucose 354 H (74-99) mg/dL POC Glucose (mg/dL) 244 H 255 H (75-99) mg/dL TIBC (228-460) ug/dL Ferritin (10.0-291.0) ng/mL Assessment and Plan Plan: #1 acute respiratory distress due to flash pulmonary edema. Suspected ALLERGIC reaction to Dilaudid. Improving with emergent dialysis #1 new onset atrial fibrillation. Paroxysmal. Currently in sinus rhythm #2 acute non-ST elevated HI with elevated troponin level up to 6.58 #3 recent history of angioplasty in July 2016 with difficult catheterization. #4 ESRD on hemodialysis Thursday. #5 peripheral vascular disease #6 hypertension #7 hyperlipidemia #8 anemia of chronic disease. Ruled out iron deficiency. Hemoglobin 11.1--8.8 this morning Plan: Patient will be continued on telemetry monitoring and continue with heparin drip at this time. Patient was started on Coumadin dosing. Hemoglobin is stable Patient was started on epogen. Patient does not have any active GI bleed. Cardiology is following this patient. Patient will be getting hemodialysis today. Continue the current management and follow closely. Further recommendations based on the clinical course. Time with Patient: Greater than 30
--- NOTE | 2016-12-01 00:11 | P.PN ---
Subjective Principal diagnosis: New onset atrial fibrillation This is a 56-year-old female with a known history of ESRD on hemodialysis Thursday and Thursday, coronary artery disease with history of stent placement in July 2016 and peripheral vascular disease and also multiple other medical problems was sent to ER with hypotension. Patient states she went to dialysis today after dialysis she noted that her blood pressure was low and she was feeling a little weak and felt as though her vision was slightly blurred. Patient also felt palpitations. Patient decided come to the emergency department. Patient states blood pressure is still low just prior to arrival it was 80 systolic. Patient denies any difficulty breathing or shortness of breath. Patient denies any chest pain. Patient denies abdominal pain patient denies nausea vomiting or diarrhea. Patient denies any recent fever chills per patient denies headache. Patient denies lightheadedness dizziness or near syncopal episode. Patient was found to have atrial fibrillation when she was in the ER. Patient was started on Cardizem drip and to converted back to sinus rhythm. Patient was also found to have elevated troponin level went up to 6.58. Cardiology has been consulted. Currently patient denied any chest pain. On 11/28/2016 Patient's hemoglobin dropped from 11.1 to 8.8 today which is increased to 10.1 on repeat CBC. Patient denied any rectal bleed or dark color stools. Patient does have history of colonoscopy and found to have AV malformations in 2016. Patient was also given a epogen. Patient will be getting hemodialysis today. Patient will be continued on heparin drip. 11/29/2016 Patient's hemoglobin is stable.. Patient developed shortness of breath and possibly ALLERGIC reaction to IV Dilaudid. Chest x-ray showed flash pulmonary edema. Patient was dialyzed emergently. Breathing status is improving now. No fever no chills. Now, was of abdominal pain no nausea no vomiting. On 11/30/2016 Patient is sitting on the chair comfortably. Denied any chest pain or short of breath. INR 1.3. Continued on heparin drip. No acute overnight issues. Next hemodialysis is on Thursday. Patient is anxious to be discharged home. Hemoglobin is stable. Denied any nausea or vomiting or abdominal pain. All other review of systems negative except above Current medications reviewed Objective - Vital Signs Vital signs: Vital Signs Temp 98.2 F 11/30/16 15:40 Pulse 92 11/30/16 15:40 Resp 18 11/30/16 15:40 BP 153/67 11/30/16 15:40 Pulse Ox 96 11/30/16 15:40 Intake & Output 11/30/16 11/30/16 12/01/16 06:59 18:59 06:59 Intake Total 255.19 1388.010 Output Total 1 Balance 254.19 1388.010 Weight 67.9 kg Intake: IV 323.2 Heparin Sodium,Porcine/ 323.2 D5w Pmx 25,000 unit In Dextrose/Water 1 500ml. bag @ 12 UNITS/KG/HR 16. 43 mls/hr IV .Q24H [facility] Rx #:[id number] Intake, IV Titration 255.19 244.810 Amount Heparin Sodium,Porcine/ 255.19 244.810 D5w Pmx 25,000 unit In Dextrose/Water 1 500ml. bag @ 12 UNITS/KG/HR 16. 43 mls/hr IV .Q24H [facility] Rx #:[id number] Oral 820 Output: Urine 1 Other: Voiding Method Toilet Toilet # Voids 1 - Exam Patient is lying in the bed comfortably, no acute distress, awake alert and oriented.. HEENT: Normocephalic. Neck is supple. Pupils reactive. Nostrils clear. Oral cavity is moist. Ears reveal no drainage. Neck reveals no JVD, carotid bruits, or thyromegaly. CHEST EXAMINATION: Trachea is central. Symmetrical expansion. Minimal right basilar crackles. No rhonchi no wheezing CARDIAC: Normal S1, S2 with no gallops. No murmurs ABDOMEN: Soft. Bowel sounds normal. No organomegaly. No abdominal bruits. Extremities reveal no edema. No clubbing or cyanosis Neurologically awake, alert, oriented x3 with well-coordinated movements. Skin: no rash or skin lesions Musculoskeletal: no joint swelling or deformity. - Labs CBC & Chem 7: 11/29/16 05:27 11/29/16 05:27 Labs: Abnormal Lab Results - Last 24 Hours (Table) 11/29/16 11/30/16 11/30/16 Range/Units 23:18 05:29 06:36 PT 12.6 H (9.0-12.0) sec INR 1.3 H (<1.2) APTT 31.8 H >200.0 H* (22.0-30.0) sec POC Glucose (mg/dL) 246 H (75-99) mg/dL 11/30/16 11/30/16 11/30/16 Range/Units 11:44 14:07 16:51 PT (9.0-12.0) sec INR (<1.2) APTT 54.9 H (22.0-30.0) sec POC Glucose (mg/dL) 375 H 340 H (75-99) mg/dL 11/30/16 Range/Units 20:48 PT (9.0-12.0) sec INR (<1.2) APTT (22.0-30.0) sec POC Glucose (mg/dL) 292 H (75-99) mg/dL Assessment and Plan Plan: #1 acute respiratory distress due to flash pulmonary edema on 11/29/2016. Suspected ALLERGIC reaction to Dilaudid. Resolved with emergent dialysis #1 new onset atrial fibrillation. Paroxysmal. Currently in sinus rhythm #2 acute non-ST elevated VA with elevated troponin level up to 6.58 #3 recent history of angioplasty in July 2016 with difficult catheterization. #4 ESRD on hemodialysis Thursday. #5 peripheral vascular disease #6 hypertension #7 hyperlipidemia #8 anemia of chronic disease. Ruled out iron deficiency. Hemoglobin 11.1--8.8 this morning Plan: Patient will be continued on telemetry monitoring and continue with heparin drip at this time. Patient was started on Coumadin dosing. Hemoglobin is stable Patient was started on epogen. Patient does not have any active GI bleed. Patient was seen by GI and he is agreeable for anticoagulation with Coumadin. Cardiology is following this patient. Patient will be getting hemodialysis on Thursday and Thursday. Continue the current management and follow closely. Further recommendations based on the clinical course.
[2016-12-01 05:59] LABS: Glucose,Whole Blood 171 mg/dL (75-99)
[2016-12-01 06:18] LABS: Anisocytosis Moderate; Basophils % (A) 0 %; CH 30.1; CHCM 31.2; Eosinophils # (A) 0.2 k/uL (0-0.7); Eosinophils % (A) 3 %; HCT 29.4 % (34.0-46.0); HDW 3.13; HGB 9.4 gm/dL (11.4-16.0); Hypochromasia Moderate; Luc # (Auto) 0.16; Luc % (Auto) 3; Lymphocytes # (A) 1.2 k/uL (1.0-4.8); Lymphocytes % (A) 19 %; MCV 96.8 fL (80.0-100.0); Macrocytosis Moderate; Mean Platelet Volume 7.2; Monocytes # (A) 0.4 k/uL (0-1.0); Monocytes % (A) 7 %; Neutrophils # (A) 4.4 k/uL (1.3-7.7); Neutrophils % (A) 69 %; RBC 3.04 m/uL (3.80-5.40); RDW 21.9 % (11.5-15.5); WBC 6.4 k/uL (3.8-10.6); WBC (Perox) 7.09
[2016-12-01 06:21] LABS: INR 1.1 (<1.2); Prothrombin Time 11.4 sec (9.0-12.0)
[2016-12-01 06:32] LABS: Calcium 9.4 mg/dL (8.4-10.2); Potassium 4.2 mmol/L (3.5-5.1)
[2016-12-01] MEDS: INSULIN LISPRO (humaLOG) 300 UNIT/3 ML VIAL SQ SCH ×2 (06:37→11:49)
[2016-12-01] MEDS: SEVELAMER 800 MG TAB PO SCH ×2 (06:37→11:48)
[2016-12-01 08:57] VITALS: RESP 18
[2016-12-01] MEDS: HEPARIN SODIUM,PORCINE/D5W PMX 25,000 UNIT in DEXTROSE/WATER 1 500ML.BAG IV SCH (09:04)
--- NOTE | 2016-12-01 10:08 | P.PN ---
Subjective Patient is seen in follow-up for end-stage renal disease. She is maintained on hemodialysis on a Thursday schedule. She has a left upper extremity AV raft. Patient presented to the hospital with A. fib with RVR and she required a Cardizem drip. Her heart rate is stable. She became acutely dyspneic on Thursday with evidence of pulmonary edema and underwent hemodialysis with 2 L ultrafiltration. She's feeling better. Currently undergoing hemodialysis. Vital signs are stable. General: The patient appeared well nourished and normally developed. HEENT: Head exam is unremarkable. Neck is without jugular venous distension. LUNGS: Lungs are clear to auscultation and percussion. Breath sounds decreased. HEART: Rate and Rhythm are regular. First and second heart sounds normal. No murmurs, rubs or gallops. ABDOMEN: Abdominal exam reveals normal bowel sounds. Non-tender and non- distended. No evidence of peritonitis. EXTREMITITES: No clubbing, cyanosis, or edema. Objective - Vital Signs Vital signs: Vital Signs Temp 98.2 F 12/01/16 08:56 Pulse 87 12/01/16 08:56 Resp 18 12/01/16 08:56 BP 164/76 12/01/16 08:56 Pulse Ox 98 12/01/16 08:56 Intake & Output 11/30/16 12/01/16 12/01/16 18:59 06:59 18:59 Intake Total 1388.010 332.264 322.836 Balance 1388.010 332.264 322.836 Weight 69.5 kg Intake: IV 323.2 120 24.3 0.9 120 Heparin Sodium,Porcine/ 323.2 24.3 D5w Pmx 25,000 unit In Dextrose/Water 1 500ml. bag @ 12 UNITS/KG/HR 16. 43 mls/hr IV .Q24H [facility] Rx #:[id number] Intake, IV Titration 244.810 212.264 58.536 Amount Heparin Sodium,Porcine/ 244.810 212.264 58.536 D5w Pmx 25,000 unit In Dextrose/Water 1 500ml. bag @ 12 UNITS/KG/HR 16. 43 mls/hr IV .Q24H [facility] Rx #:[id number] Oral 820 240 Other: Voiding Method Toilet Toilet Toilet # Voids 1 - Labs CBC & Chem 7: 12/01/16 06:05 12/01/16 06:05 Labs: Abnormal Lab Results - Last 24 Hours (Table) 11/30/16 11/30/16 11/30/16 Range/Units 11:44 14:07 16:51 RBC (3.80-5.40) m/uL Hgb (11.4-16.0) gm/dL Hct (34.0-46.0) % RDW (11.5-15.5) % APTT 54.9 H (22.0-30.0) sec Chloride (98-107) mmol/L BUN (7-17) mg/dL Creatinine (0.52-1.04) mg/dL Glucose (74-99) mg/dL POC Glucose (mg/dL) 375 H 340 H (75-99) mg/dL 11/30/16 12/01/16 12/01/16 Range/Units 20:48 05:57 06:05 RBC 3.04 L (3.80-5.40) m/uL Hgb 9.4 L (11.4-16.0) gm/dL Hct 29.4 L (34.0-46.0) % RDW 21.9 H (11.5-15.5) % APTT (22.0-30.0) sec Chloride (98-107) mmol/L BUN (7-17) mg/dL Creatinine (0.52-1.04) mg/dL Glucose (74-99) mg/dL POC Glucose (mg/dL) 292 H 171 H (75-99) mg/dL 12/01/16 12/01/16 Range/Units 06:05 06:05 RBC (3.80-5.40) m/uL Hgb (11.4-16.0) gm/dL Hct (34.0-46.0) % RDW (11.5-15.5) % APTT 34.0 H (22.0-30.0) sec Chloride 96 L (98-107) mmol/L BUN 40 H (7-17) mg/dL Creatinine 7.34 H* (0.52-1.04) mg/dL Glucose 172 H (74-99) mg/dL POC Glucose (mg/dL) (75-99) mg/dL Assessment and Plan Plan: Assessment: #1. End-stage renal disease maintained on hemodialysis on a Thursday schedule via eft upper extremity AV graft. #2. Paroxysmal atrial fibrillation now off Cardizem drip. She has been started on anticoagulation. #3. Anemia of chronic kidney disease. Iron replete. #4. Hypertension with chronic kidney disease. Blood pressure slightly on the higher side this morning. Partially volume sensitive. #5. Chronic kidney disease mineral bone disease. #6. History of coronary artery disease status post stent placement. #7. Acute pulmonary edema. Symptomatically improved postdialysis. Plan: Hemodialysis today with goal 2-3 liters ultrafiltration. Maintain Aranesp. Maintain Renvela with meals. Cardiology following. Avoid Dilaudid has dyspnea came upon shortly after receiving Dilaudid. Potential discharge today.
--- NOTE | 2016-12-01 10:57 | P.PN ---
Subjective Principal diagnosis: Non-STEMI This is a pleasant 56-year-old -Russian female with known history of coronary artery disease, most recently patient underwent angioplasty of the ramus intermedius in July of this year. She also has history of peripheral vascular disease, end-stage renal disease on dialysis, hypertension, diabetes, prior CVA, hyperlipidemia. Patient presented to the hospital on this admission with a non-ST elevation myocardial infarction. Her case was discussed with Dr. Calixto her primary respiratory technician and the decision was made to maximize medical therapy. Patient also went into atrial fibrillation with rapid ventricular response and currently is in normal sinus rhythm. We did have a lengthy discussion with the patient regarding initiating anticoagulation in the form of Coumadin. She received her first dose yesterday. Her INR today is 1.1. Sodium 128, potassium 4.1, BUN 23, creatinine 4.6. hgb 9.0. Patient is sitting up in the chair at the time of my examination, denies any chest pain, breathing is stable. She continues to be on IV heparin, we will give her 5 mg of Coumadin today. 12/01/2016 Patient seen and examined this morning, denies any chest pain, breathing is stable. Currently undergoing dialysis. The pressure 160/70 with a heart rate in the 80s. We will increase her dose of Norvasc to 10 mg daily today. She may be able to be discharged home from cardiology's perspective. We will make her a follow-up appointment to see Dr. Calixto in the office post discharge. Objective - Vital Signs Vital signs: Vital Signs Temp 98.2 F 12/01/16 08:56 Pulse 87 12/01/16 08:56 Resp 18 12/01/16 08:56 BP 164/76 12/01/16 08:56 Pulse Ox 98 12/01/16 08:56 Intake & Output 11/30/16 12/01/16 12/01/16 18:59 06:59 18:59 Intake Total 1388.010 332.264 322.836 Balance 1388.010 332.264 322.836 Weight 69.5 kg Intake: IV 323.2 120 24.3 0.9 120 Heparin Sodium,Porcine/ 323.2 24.3 D5w Pmx 25,000 unit In Dextrose/Water 1 500ml. bag @ 12 UNITS/KG/HR 16. 43 mls/hr IV .Q24H [facility] Rx #:[id number] Intake, IV Titration 244.810 212.264 58.536 Amount Heparin Sodium,Porcine/ 244.810 212.264 58.536 D5w Pmx 25,000 unit In Dextrose/Water 1 500ml. bag @ 12 UNITS/KG/HR 16. 43 mls/hr IV .Q24H [facility] Rx #:[id number] Oral 820 240 Other: Voiding Method Toilet Toilet Toilet # Voids 1 - Exam PHYSICAL EXAMINATION: HEENT: Head is atraumatic, normocephalic. Pupils equal, round. Neck is supple. There is no elevated jugular venous pressure. HEART EXAMINATION: S1 and S2 1 systolic murmur is heard. CHEST EXAMINATION: Lungs are clear to auscultation and precussion. No chest wall tenderness is noted on palpation or with deep breathing. ABDOMEN: Soft, nontender. Bowel sounds are heard. No organomegaly noted. EXTREMITIES: 2+ peripheral pulses with no evidence of peripheral edema and no calf tenderness noted]. NEUROLOGIC [patient is awake, alert and oriented -3.] . - Labs CBC & Chem 7: 12/01/16 06:05 12/01/16 06:05 Labs: Abnormal Lab Results - Last 24 Hours (Table) 11/30/16 11/30/16 11/30/16 Range/Units 11:44 14:07 16:51 RBC (3.80-5.40) m/uL Hgb (11.4-16.0) gm/dL Hct (34.0-46.0) % RDW (11.5-15.5) % APTT 54.9 H (22.0-30.0) sec Chloride (98-107) mmol/L BUN (7-17) mg/dL Creatinine (0.52-1.04) mg/dL Glucose (74-99) mg/dL POC Glucose (mg/dL) 375 H 340 H (75-99) mg/dL 11/30/16 12/01/16 12/01/16 Range/Units 20:48 05:57 06:05 RBC 3.04 L (3.80-5.40) m/uL Hgb 9.4 L (11.4-16.0) gm/dL Hct 29.4 L (34.0-46.0) % RDW 21.9 H (11.5-15.5) % APTT (22.0-30.0) sec Chloride (98-107) mmol/L BUN (7-17) mg/dL Creatinine (0.52-1.04) mg/dL Glucose (74-99) mg/dL POC Glucose (mg/dL) 292 H 171 H (75-99) mg/dL 12/01/16 12/01/16 Range/Units 06:05 06:05 RBC (3.80-5.40) m/uL Hgb (11.4-16.0) gm/dL Hct (34.0-46.0) % RDW (11.5-15.5) % APTT 34.0 H (22.0-30.0) sec Chloride 96 L (98-107) mmol/L BUN 40 H (7-17) mg/dL Creatinine 7.34 H* (0.52-1.04) mg/dL Glucose 172 H (74-99) mg/dL POC Glucose (mg/dL) (75-99) mg/dL Assessment and Plan (1) CAD (coronary artery disease) Status: Acute (2) Anemia Status: Acute (3) End stage renal disease on dialysis Status: Acute (4) New onset a-fib Status: Acute (5) Non-ST elevated myocardial infarction Status: Acute (6) AVM (arteriovenous malformation) of colon Status: Acute (7) Acute blood loss anemia Status: Acute (8) Anemia Status: Acute (9) Diabetes mellitus Status: Acute (10) ESRD (end stage renal disease) Status: Acute (11) H/O: CVA (cerebrovascular accident) Status: Acute (12) HTN (hypertension) Status: Acute (13) Hyperlipemia Status: Acute Plan: Cardiology's perspective, patient may be able to be discharged home today. We will increase her dose of Norvasc to 10 mg daily for more optimal blood pressure control. A follow-up appointment will be made in the office with Dr. Calixto post discharge. DNP note has been reviewed, I agree with a documented findings and plan of care. Patient was seen and examined.
[2016-12-01 11:14] VITALS: BP 140/56; PULSE 89; TEMP 98.3
[2016-12-01 11:23] LABS: Glucose,Whole Blood 165 mg/dL (75-99)
[2016-12-01] MEDS: amLODIPine 5 MG TAB PO SCH (11:45)
[2016-12-01] MEDS: FOLIC ACID-VIT B COMPLEX-VIT C 1 CAP PO SCH (11:48)
[2016-12-01] MEDS: CLOPIDOGREL 75 MG TAB PO SCH (11:48)
[2016-12-01] MEDS: FUROSEMIDE 80 MG TAB PO SCH (11:48)
[2016-12-01] MEDS: ASPIRIN 81 MG PO SCH (11:48)
[2016-12-01] MEDS: SENNOSIDES-DOCUSATE SODIUM 1 EACH TAB PO SCH (11:48)
[2016-12-01] MEDS: METOPROLOL SUCCINATE (ER) 50 MG TAB.ER.24H PO SCH (11:48)
--- NOTE | 2016-12-01 11:54 | P.PN ---
Subjective Principal diagnosis: Acute non-ST elevation [place] This is a pleasant 56-year-old female patient who follows was Dr. Calixto in the office with a known history of CAD who underwent few months ago balloon angioplasty on the ramus intermedius coronary artery, she is also known to have infestation of disease on hemodialysis, presented to the hospital with difficulty breathing. She was found to be in mild congestive heart failure exacerbation. Also she was found to have abnormal cardiac enzymes. The patient was treated medically and she has done well. During her hospitalization she went into an A. fib and came back into normal sinus mechanism. The patient was seen on 11/30/2017 as a follow-up visit. She was feeling good and denies having any chest pain or discomfort or difficulty breathing. She continues to be on dual antiplatelet therapy as well as a statin. She is also on beta carmel. 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 Objective - Vital Signs Vital signs: Vital Signs Temp 98.3 F 12/01/16 11:13 Pulse 89 12/01/16 11:13 Resp 18 12/01/16 11:13 BP 140/56 12/01/16 11:13 Pulse Ox 99 12/01/16 11:13 Intake & Output 11/30/16 12/01/16 12/01/16 18:59 06:59 18:59 Intake Total 1388.010 332.264 322.836 Balance 1388.010 332.264 322.836 Weight 69.5 kg Intake: IV 323.2 120 24.3 0.9 120 Heparin Sodium,Porcine/ 323.2 24.3 D5w Pmx 25,000 unit In Dextrose/Water 1 500ml. bag @ 12 UNITS/KG/HR 16. 43 mls/hr IV .Q24H [facility] Rx #:[id number] Intake, IV Titration 244.810 212.264 58.536 Amount Heparin Sodium,Porcine/ 244.810 212.264 58.536 D5w Pmx 25,000 unit In Dextrose/Water 1 500ml. bag @ 12 UNITS/KG/HR 16. 43 mls/hr IV .Q24H [facility] Rx #:[id number] Oral 820 240 Other: Voiding Method Toilet Toilet Toilet # Voids 1 - Constitutional General appearance: Present: no acute distress - Respiratory Respiratory: bilateral: CTA - Cardiovascular Rhythm: regular Heart sounds: normal: S1, S2 - Labs CBC & Chem 7: 12/01/16 06:05 12/01/16 06:05 Labs: Abnormal Lab Results - Last 24 Hours (Table) 11/30/16 11/30/16 11/30/16 Range/Units 14:07 16:51 20:48 RBC (3.80-5.40) m/uL Hgb (11.4-16.0) gm/dL Hct (34.0-46.0) % RDW (11.5-15.5) % APTT 54.9 H (22.0-30.0) sec Chloride (98-107) mmol/L BUN (7-17) mg/dL Creatinine (0.52-1.04) mg/dL Glucose (74-99) mg/dL POC Glucose (mg/dL) 340 H 292 H (75-99) mg/dL 12/01/16 12/01/16 12/01/16 Range/Units 05:57 06:05 06:05 RBC 3.04 L (3.80-5.40) m/uL Hgb 9.4 L (11.4-16.0) gm/dL Hct 29.4 L (34.0-46.0) % RDW 21.9 H (11.5-15.5) % APTT (22.0-30.0) sec Chloride 96 L (98-107) mmol/L BUN 40 H (7-17) mg/dL Creatinine 7.34 H* (0.52-1.04) mg/dL Glucose 172 H (74-99) mg/dL POC Glucose (mg/dL) 171 H (75-99) mg/dL 12/01/16 12/01/16 Range/Units 06:05 11:18 RBC (3.80-5.40) m/uL Hgb (11.4-16.0) gm/dL Hct (34.0-46.0) % RDW (11.5-15.5) % APTT 34.0 H (22.0-30.0) sec Chloride (98-107) mmol/L BUN (7-17) mg/dL Creatinine (0.52-1.04) mg/dL Glucose (74-99) mg/dL POC Glucose (mg/dL) 165 H (75-99) mg/dL Assessment and Plan Plan: This is a pleasant 56-year-old -[place] female patient was admitted to the hospital with CHF as well as non-STEMI. The patient has done well clinically. She is asymptomatic. We'll continue the current medical treatment and continue following up with her. We'll continue to Coumadin to get an INR in the therapeutic range.
[2016-12-01] MEDS: ACETAMINOPHEN TAB 325 MG TAB PO PRN (12:37)
[2016-12-01] MEDS ORDERED: GELATIN SPONGE,ABSORB (SMALL) 1 EACH SPONGE ONE (13:00)
[2016-12-01] MEDS: HEPARIN SODIUM,PORCINE 5,000 UNIT/ML 1 ML VIAL IV PRN (14:01)
[2016-12-01] MEDS ORDERED: INSULIN LISPRO (humaLOG) 300 UNIT/3 ML VIAL SQ ONE (15:20)
[2016-12-01 15:22] LABS: Glucose,Whole Blood 272 mg/dL (75-99)
[2016-12-01] MEDS ORDERED: WARFARIN 5 MG TAB PO SCH (18:00)
[2016-12-02] MEDS ORDERED: amLODIPine 10 MG TAB PO SCH (09:00)
--- NOTE | 2016-12-12 16:53 | CDI ---
In responding to this query, please exercise your independent professional judgment. The [facility] Coding Staff and Clinical Documentation Specialists appreciate your assistance in clarifying documentation, maintaining compliance with coding guidelines, accurately documenting patients condition and capturing severity of illness. The fact that a question is asked does not imply that any particular answer is desired or expected. Communication forms are a method of clarifying documentation and are not made part of the Legal Health Record. Thank you in advance for your clarification. Last Revision, May 2016 Stephanie Hull [address] [place] [address] Documentation Clarification Form Date: 12/12/2016 4:39:00 PM From: Alexandrea Rodriguez Admit Date: 11/26/2016 7:25:00 PM Patient Name: Reina Kaufman Visit Number: [id number] Discharge Date: 12/01/16 Dr. Srinivas Black 56 year old female presenting with paroxysmal atrial fibrillation, acute non-ST elevated [place].Your 11/29 progress note state develops acute respiratory distress due to flash pulmonary edema. Suspected allergic reaction to Dilaudid. Improving with emergent dialysis. Yuko Arriaza mentions that the patient was admitted with CHF. In your professional opinion, can you please clarify if the flash pulmonary edema is CHF, if so, please clarify he acuity and type of CHF if known? No CHF, flash pulmonary edema Systolic Heart Failure: Acute Chronic Acute on Chronic Diastolic Heart Failure: Acute Chronic Acute on Chronic Systolic & Diastolic Heart Failure: Acute Chronic Acute on Chronic Unable to determine Other, please specify Please document your addendum in your discharge summary in order to capture severity of illness and risk of mortality. Include clinical findings that support your diagnosis. FYI: Press F11 to launch patient chart. If you have a question about this query, please contact Kendy New, Clay Artisan, Stephanie Hull at [phone] between 8am and 5pm. ALFRED
--- NOTE | 2017-01-12 23:19 | P.DS ---
Providers Date of admission: 11/26/16 19:25 Expected date of discharge: 12/01/16 Attending physician: Srinivas Black Consults: 11/26/16 19:24 Consult Physician Urgent Consulting Provider: [facility] Consult Reason/Comments: A. fib with rapid ventricular response, elevated troponin Do you want consulting provider notified?: Yes 11/27/16 10:06 Consult Physician Urgent Consulting Provider: Tati Nobles Consult Reason/Comments: hx of lower gi bleed Do you want consulting provider notified?: Yes 11/27/16 20:31 Consult Physician Routine Consulting Provider: Thomas Damon Consult Reason/Comments: Hemodialysis patient Do you want consulting provider notified?: Yes, Notify in am 11/27/16 21:43 Consult Physician Routine Consulting Provider: Thomas Damon Consult Reason/Comments: ESRD Do you want consulting provider notified?: Yes, Notify in am Primary care physician: Jossie Rubio [facility] Course: Discharge diagnosis #1 acute respiratory distress due to flash pulmonary edema on 11/29/2016. Possible acute on chronic CHF with diastolic dysfunction. Suspected ALLERGIC reaction to Dilaudid. Resolved with emergent dialysis #1 new onset atrial fibrillation. Paroxysmal. Currently in sinus rhythm #2 acute non-ST elevated SD with elevated troponin level up to 6.58 #3 recent history of angioplasty in July 2016 with difficult catheterization. #4 ESRD on hemodialysis Thursday. #5 peripheral vascular disease #6 hypertension #7 hyperlipidemia #8 anemia of chronic disease. Ruled out iron deficiency. Hemoglobin 11.1--8.8 this morninge. Hospital course This is a 56-year-old female with a known history of ESRD on hemodialysis Thursday and Thursday, coronary artery disease with history of stent placement in July 2016 and peripheral vascular disease and also multiple other medical problems was sent to ER with hypotension. Patient states she went to dialysis today after dialysis she noted that her blood pressure was low and she was feeling a little weak and felt as though her vision was slightly blurred. Patient also felt palpitations. Patient decided come to the emergency department. Patient states blood pressure is still low just prior to arrival it was 80 systolic. Patient denies any difficulty breathing or shortness of breath. Patient denies any chest pain. Patient denies abdominal pain patient denies nausea vomiting or diarrhea. Patient denies any recent fever chills per patient denies headache. Patient denies lightheadedness dizziness or near syncopal episode. Patient was found to have atrial fibrillation when she was in the ER. Patient was started on Cardizem drip and to converted back to sinus rhythm. Patient was also found to have elevated troponin level went up to 6.58. Cardiology has been consulted. Currently patient denied any chest pain. On 11/28/2016 Patient's hemoglobin dropped from 11.1 to 8.8 today which is increased to 10.1 on repeat CBC. Patient denied any rectal bleed or dark color stools. Patient does have history of colonoscopy and found to have AV malformations in 2016. Patient was also given a epogen. Patient will be getting hemodialysis today. Patient will be continued on heparin drip. 11/29/2016 Patient's hemoglobin is stable.. Patient developed shortness of breath and possibly ALLERGIC reaction to IV Dilaudid. Chest x-ray showed flash pulmonary edema. Patient was dialyzed emergently. Breathing status is improving now. No fever no chills. Now, was of abdominal pain no nausea no vomiting. On 11/30/2016 Patient is sitting on the chair comfortably. Denied any chest pain or short of breath. INR 1.3. Continued on heparin drip. No acute overnight issues. Next hemodialysis is on Thursday. Patient is anxious to be discharged home. Hemoglobin is stable. Denied any nausea or vomiting or abdominal pain. 12/01/2016 Patient did improve clinically. Denied any complaints of chest pain or short of breath. Shortness of breath much improved with hemodialysis. Patient is stable to be discharged home. Patient was continued on telemetry monitoring and continue with heparin drip. Patient was started on Coumadin dosing. Hemoglobin is stable. Patient was started on epogen. Patient does not have any active GI bleed. Patient was seen by GI and he is agreeable for anticoagulation with Coumadin. Cardiology is following this patient. Patient is stable to be discharged home. Discharge physical examination was done Patient Condition at Discharge: Fair Plan - Discharge Summary New Discharge Prescriptions: New Darbepoetin Doroteo [Aranesp] 40 mcg SQ Q7D syr Continue Furosemide [Lasix] 80 mg PO BID Albuterol Inhaler [Ventolin Hfa Inhaler] 1 puff INHALATION RT-BID PRN PRN Reason: Shortness Of Breath Clopidogrel [Plavix] 75 mg PO DAILY tab Atorvastatin [Lipitor] 40 mg PO HS Insulin Aspart [NovoLOG Flexpen] See Protocol SQ AC-TID ALPRAZolam [Xanax] 0.25 mg PO HS PRN PRN Reason: Insomnia Sevelamer [Renvela] 2,400 mg PO AC-TID amLODIPine [Norvasc] 5 mg PO DAILY Nitroglycerin Sl Tabs [Nitrostat] 0.4 mg SUBLINGUAL Q5M PRN PRN Reason: Chest Pain Folic Acid-Vit B Complex-Vit C [Nephrocaps] 1 cap PO DAILY Temazepam [Restoril] 15 mg PO HS PRN #15 cap PRN Reason: Insomnia Metoprolol Succinate (ER) [Toprol XL] 50 mg PO DAILY No Action Aspirin EC [Ecotrin Low Dose] 81 mg PO DAILY Insulin Glargine,Hum.rec.anlog [Lantus Solostar] 38 unit SQ HS Warfarin [Coumadin] 5 mg PO HS@1800 Gabapentin [Neurontin] 100 mg PO TID Midodrine [ProAmatine] 5 mg PO MoWeFr@0900 tab Spironolactone [Aldactone] 25 mg PO DAILY #30 tab Discharge Medication List Furosemide [Lasix] 80 mg PO BID 09/17/13 [History] Albuterol Inhaler [Ventolin Hfa Inhaler] 1 puff INHALATION RT-BID PRN 02/12/16 [ History] Clopidogrel [Plavix] 75 mg PO DAILY tab 02/16/16 [Rx] Atorvastatin [Lipitor] 40 mg PO HS 07/16/16 [History] Insulin Aspart [NovoLOG Flexpen] See Protocol SQ AC-TID 07/16/16 [History] ALPRAZolam [Xanax] 0.25 mg PO HS PRN 07/29/16 [History] Aspirin EC [Ecotrin Low Dose] 81 mg PO DAILY 10/30/16 [History] Folic Acid-Vit B Complex-Vit C [Nephrocaps] 1 cap PO DAILY 10/30/16 [History] Nitroglycerin Sl Tabs [Nitrostat] 0.4 mg SUBLINGUAL Q5M PRN 10/30/16 [History] Sevelamer [Renvela] 2,400 mg PO AC-TID 10/30/16 [History] amLODIPine [Norvasc] 5 mg PO DAILY 10/30/16 [History] Temazepam [Restoril] 15 mg PO HS PRN #15 cap 11/01/16 [Rx] Metoprolol Succinate (ER) [Toprol XL] 50 mg PO DAILY 11/26/16 [History] Darbepoetin Doroteo [Aranesp] 40 mcg SQ Q7D syr 12/01/16 [Rx] Insulin Glargine,Hum.rec.anlog [Lantus Solostar] 38 unit SQ HS 01/01/17 [History ] Warfarin [Coumadin] 5 mg PO HS@1800 01/01/17 [History] Gabapentin [Neurontin] 100 mg PO TID 01/02/17 [History] Midodrine [ProAmatine] 5 mg PO MoWeFr@0900 tab 01/05/17 [Rx] Spironolactone [Aldactone] 25 mg PO DAILY #30 tab 01/05/17 [Rx] Follow up Appointment(s)/Referral(s): Ramiro Sethi MD [Primary Care Provider] - 12/03/16 1:50 pm Chirag Calixto MD [STAFF PHYSICIAN] - 12/08/16 2:45 pm ([facility]) Ambulatory/Diagnostic Orders: Prothrombin Time INR [LAB.AMB] Time Frame: 12/03/16, Facility: [facility], Location: [facility] Patient Instructions/Handouts: A-fib (Atrial Fibrillation) (DC) Discharge Disposition: HOME SELF-CARE
== END 2016-12-01 16:41 | disposition home or self-care (01) | DRG 280 ==
LOC: EC 17:26 → 6SEL 19:25
PROVIDERS: ADMIT Internal Medicine; ATTEND Internal Medicine
PROC: 5A1D60Z (ICD-10-PCS; principal; 2016-11-28)
DX: I21.4 Non-ST elevation (NSTEMI) myocardial infarction (principal); N18.6 End stage renal disease; I50.33 Acute on chronic diastolic (congestive) heart failure; Z76.82 Awaiting organ transplant status; I95.9 Hypotension, unspecified; E11.22 Type 2 diabetes mellitus with diabetic chronic kidney disease; E11.51 Type 2 diabetes mellitus with diabetic peripheral angiopathy without gangrene; D62 Acute posthemorrhagic anemia; I13.11 Hypertensive heart and chronic kidney disease without heart failure, with stage 5 chronic kidney disease, or end stage renal disease; E11.319 Type 2 diabetes mellitus with unspecified diabetic retinopathy without macular edema; I48.0 Paroxysmal atrial fibrillation; R06.02 Shortness of breath; T40.2X5A Adverse effect of other opioids, initial encounter; I25.10 Atherosclerotic heart disease of native coronary artery without angina pectoris; K21.9 Gastro-esophageal reflux disease without esophagitis; E78.5 Hyperlipidemia, unspecified; M19.91 Primary osteoarthritis, unspecified site; D63.1 Anemia in chronic kidney disease; Q27.33 Arteriovenous malformation of digestive system vessel; Z79.02 Long term (current) use of antithrombotics/antiplatelets; Z79.82 Long term (current) use of aspirin; Z79.4 Long term (current) use of insulin; Z79.899 Other long term (current) drug therapy; Z99.2 Dependence on renal dialysis; Z95.5 Presence of coronary angioplasty implant and graft; Z86.73 Personal history of transient ischemic attack (TIA), and cerebral infarction without residual deficits; Z87.891 Personal history of nicotine dependence; Z90.49 Acquired absence of other specified parts of digestive tract; Z90.710 Acquired absence of both cervix and uterus; Z88.8 Allergy status to other drugs, medicaments and biological substances; Z91.041 Radiographic dye allergy status; Z88.0 Allergy status to penicillin; Z91.013 Allergy to seafood
CPT/HCPCS: 36415; 71010; 71020; 80048; 80053; 80061; 82550; 82553; 82728; 83036; 83540; 83550; 83735; 84100; 84484; 85025; 85027; 85610; 85730; 90935; 93005; 96374; 96375; 99291

== ENCOUNTER → 2016-12-23 | Outpatient (CLI) | payer MEDICARE, BC ==
--- NOTE | 2016-12-23 15:11 | US ---
EXAMINATION TYPE: US thyroid st tissue head/neck DATE OF EXAM: 12/23/2016 COMPARISON: NONE CLINICAL HISTORY: HYPERPARATHYROIDISM N25.81. Hyperparathyroid, pt states no known prior thyroid issu es GLAND SIZE: Right Lobe: 4.5 x 1.6 x 1.5 cm Overall Parenchyma: Slightly heterogeneous Left Lobe: 4.1 x 1.3 x 1.5 cm Overall Parenchyma: Slightly heterogeneous Isthmus Thickness: 0.4 cm NODULES RIGHT: # of nodules measured on right: 1 1. 1.2 X 0.8 x 1.1 cm hypoechoic solid nodule at the lower pole with well-defined margins; This no dule is wider than tall and shows intranodular vascularity. Prior size: No prior, unable to determine if nodule is within the thyroid or possible parathyroid* * Bilateral neck scanned, no evidence of lymphadenopathy. Nodule on right, unable to determine within t hyroid or parathyroid Thyroid gland is normal in size and heterogeneous in appearance. The posterior lower pole hypoechoic nodule appears to be within thyroid gland on images saved, parathyroid adenoma felt less likely. IMPRESSION: A 1.2 cm hypoechoic posterior nodule favors solid thyroid nodule, parathyroid adenoma felt less likel y. Consider correlating or confirming with nuclear medicine parathyroid exam given patient history.
== END | disposition home or self-care (01) ==
LOC: RADUSWWP 14:20
PROVIDERS: ATTEND Internal Medicine
DX: N25.81 Secondary hyperparathyroidism of renal origin (principal)
CPT/HCPCS: 76536

== ENCOUNTER 2017-01-01 21:40 | Inpatient (IN) | payer MEDICARE, BC ==
[2017-01-01] MEDS ORDERED: PANTOPRAZOLE 40 MG/10 ML VIAL IVP STA (22:11)
--- NOTE | 2017-01-01 22:21 | ED ---
General Adult HPI - General Chief complaint: GI Bleed Stated complaint: Rectal Bleed Source: patient, family, RN notes reviewed, old records reviewed Mode of arrival: ambulatory Limitations: no limitations - History of Present Illness Initial comments: Chief complaint history of present illness this is a 56-year-old female reports that she had some GI bleeding. Noticed that she's had diarrhea and checked the ball and found it to be bloody. The patient is on Coumadin for the past month because of a short episode of A. fib. She is also on dialysis 3 days weekly. Patient has recently been on antibiotics which preceded the diarrhea. - Related Data Home Medications Medication Instructions Recorded Confirmed Furosemide [Lasix] 80 mg PO BID 09/17/13 01/01/17 Albuterol Inhaler [Ventolin Hfa 1 puff INHALATION RT-BID PRN 02/12/16 01/01/17 Inhaler] Atorvastatin [Lipitor] 40 mg PO HS 07/16/16 01/01/17 Insulin Aspart [NovoLOG Flexpen] See Protocol SQ AC-TID 07/16/16 01/01/17 ALPRAZolam [Xanax] 0.25 mg PO HS PRN 07/29/16 01/01/17 Aspirin EC [Ecotrin Low Dose] 81 mg PO DAILY 10/30/16 01/01/17 Folic Acid-Vit B Complex-Vit C 1 cap PO DAILY 10/30/16 01/01/17 [Nephrocaps] Nitroglycerin Sl Tabs [Nitrostat] 0.4 mg SUBLINGUAL Q5M PRN 10/30/16 01/01/17 Sevelamer [Renvela] 2,400 mg PO AC-TID 10/30/16 01/01/17 amLODIPine [Norvasc] 5 mg PO DAILY 10/30/16 01/01/17 Metoprolol Succinate (ER) [Toprol 50 mg PO DAILY 11/26/16 01/01/17 XL] Insulin Glargine,Hum.rec.anlog 38 unit SQ HS 01/01/17 01/01/17 [Lantus Solostar] Warfarin [Coumadin] 5 mg PO HS@1800 01/01/17 01/01/17 Previous Rx's Medication Instructions Recorded Clopidogrel [Plavix] 75 mg PO DAILY tab 02/16/16 Temazepam [Restoril] 15 mg PO HS PRN #15 cap 11/01/16 Darbepoetin Doroteo [Aranesp] 40 mcg SQ Q7D syr 12/01/16 Allergies Allergy/AdvReac Type Severity Reaction Status Date / Time clonidine Allergy Anaphylaxis Verified 01/01/17 22:08 Iodinated Contrast- Oral and Allergy Anaphylaxis Verified 01/01/17 22:08 IV Dye iodine Allergy Anaphylaxis Verified 01/01/17 22:08 Penicillins Allergy Rash/Hives Verified 01/01/17 22:08 shellfish derived Allergy Anaphylaxis Verified 01/01/17 22:08 Review of Systems ROS Statement: Those systems with pertinent positive or pertinent negative responses have been documented in the HPI. Review of systems no visual acuity changes no headache no chest pain denies any shortness of breath. She has discomfort because of frequent loose stools. Bloody in nature. Patient denying any peripheral pain or neuro deficits. All systems are reviewed. Past medical problems significant for coronary artery disease, she states she had a GI bleed 3 years ago as well. The patient hasn't spine diabetes mellitus , end-stage renal disease on hemodialysis Thursday. On a kidney transplant list through [facility]. Previous CVA in 2007. Peripheral visual problems with the right eye. PAD, DJD, diverticulosis, pancreatitis , bronchitis. Patient surgeries cholecystectomy, heart catheterization with stent. Also stent to her leg. Patient has hemodialysis 3 times weekly. Also reports a hysterectomy. Family history Dr. Dai. ALLERGIES to clonidine, IV dye penicillin and shellfish. ROS Other: All systems not noted in ROS Statement are negative. Past Medical History Past Medical History: Coronary Artery Disease (CAD), Heart Failure, CVA/TIA, Diabetes Mellitus, GERD/Reflux, GI Bleed, Hyperlipidemia, Osteoarthritis (OA), Pneumonia, Renal Disease, Vascular Disorder Additional Past Medical History / Comment(s): Coronary artery disease, preserved LV function with an ejection fraction of 55% and moderate degree of MR , IDDM type II, End stage renal failure with hemodialysis MWF-on kidney transplant list thru [facility], CVA 2007 with some peripheral vision problems R eye and R ear [place], lower GI bleed, PAD, DJD, diverticulosis, pancreatitis, bronchitis, TMJ, sinus problems at times, UTIs, benign polypectomies, anemia. History of Any Multi-Drug Resistant Organisms: None Reported Past Surgical History: Cholecystectomy, Heart Catheterization, Heart Catheterization With Stent, Hysterectomy Additional Past Surgical History / Comment(s): L upper arm for dialysis cath, 3 Cardiac stents, one stent rt leg, EGD/colonoscopies/benign polypectomies , bilateral cataract removal, laser sx bilateral eyes for retinopathy, D&C, left axillary I&D Past Anesthesia/Blood Transfusion Reactions: Motion Sickness, Postoperative Nausea & Vomiting (PONV) Additional Past Anesthesia/Blood Transfusion Reaction / Comment(s): Pt has received blood in the past without reaction. Date of Last Stent Placement:: 09/22/13 Past Psychological History: No Psychological Hx Reported Smoking Status: Former smoker - Past Family History Mother Family Medical History: No Reported History Additional Family Medical History / Comment(s): Mother is 76 yrs old. Father Family Medical History: Diabetes Mellitus Additional Family Medical History / Comment(s): Father at the age of 42yrs- pt does not know reason. General Exam - General Exam Comments Initial Comments: General: The patient is awake and alert, in no distress, and does not appear acutely ill. here because she is taking Coumadin then she had GI bleeding. She's also had some diarrhea after taking antibiotics. Vital signs are temperature 90.6 pulse 91 respiratory rate 16 pulse ox 96% room air blood pressure 168/65 Eye: Pupils are equal, round and reactive to light, extra-ocular movements are intact ; there is normal conjunctiva bilaterally. No signs of icterus. Ears, nose, mouth and throat: There are moist mucous membranes . Neck: The neck is supple, there is no tenderness . Cardiovascular: There is a regular rate and rhythm. systolic murmur appreciated more over the mitral valve. Respiratory: Lungs are clear to auscultation, respirations are non-labored, breath sounds are equal. No wheezes, stridor, rales, or rhonchi. Gastrointestinal: Soft, non-distended, non-tender abdomen without masses or organomegaly noted. There is no rebound or guarding present. No CVA tenderness. Bowel sounds are unremarkable. Back: There is no tenderness to palpation in the midline. There is no obvious deformity. No rashes noted. Musculoskeletal: Normal ROM, no tenderness, There is no pedal edema. There is no calf tenderness or swelling. Sensation intact. Pulses equal bilaterally 2+. Neurological: CN II-XII intact, There are no obvious motor or sensory deficits. Coordination appears grossly intact. Speech is normal.no neuro deficits Skin: Skin is warm and dry and no rashes or lesions are noted. Psychiatric: Cooperative, appropriate mood & affect, normal judgment. Limitations: no limitations Course Vital Signs 01/01/17 01/02/17 21:41 00:07 Temperature 98.6 F Pulse Rate 91 85 Respiratory 16 20 Rate Blood Pressure 168/65 161/70 O2 Sat by Pulse 96 99 Oximetry EKG Findings - EKG Comments: EKG Findings:: EKG was done and reviewed at 2255 showing normal sinus rhythm with prolonged QT of 499. No acute ST elevation no ectopy no ischemic changes. Rate 85. Was 126 QRS 88 QT [address] Lipscomb Medical Decision Making - Medical Decision Making Medical decision-making. The patient's white count is 5.6 hemoglobin 10 hematocrit of 33 with a INR 2.6. Patient stopped taking her Coumadin yesterday. Bedside guaiac test was positive.laboratory reports positive stool guaiac as well. Stool will be collected and sent for C. difficile. The patient 's other labs included potassium 4.9 with a BUN of 40 creatinine 7.9 the GFR of only 5. S Sugars 252. Troponin 0.3-0. Discussed with Dr. 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 He admits he recommends no Coumadin at this time. She'll get her dialysis morning with repeat labs. She'll also be further evaluated by gastroenterology. I spoke with nurse practitioner Karo taking call for Dr. Black. - Lab Data Result diagrams: 01/01/17 22:47 01/01/17 22:47 Lab Results 01/01/17 01/01/17 01/01/17 Range/Units 22:47 22:47 22:47 WBC 5.6 (3.8-10.6) k/uL RBC 3.28 L (3.80-5.40) m/uL Hgb 10.1 L (11.4-16.0) gm/dL Hct 33.6 L (34.0-46.0) % MCV 102.3 H D (80.0-100.0) fL MCH 30.8 (25.0-35.0) pg MCHC 30.1 L (31.0-37.0) g/dL RDW 22.2 H (11.5-15.5) % Plt Count 374 (150-450) k/uL Neutrophils % 69 % Lymphocytes % 19 % Monocytes % 7 % Eosinophils % 3 % Basophils % 0 % Neutrophils # 3.9 (1.3-7.7) k/uL Lymphocytes # 1.0 (1.0-4.8) k/uL Monocytes # 0.4 (0-1.0) k/uL Eosinophils # 0.2 (0-0.7) k/uL Basophils # 0.0 (0-0.2) k/uL Manual Slide Review Performed Polychromasia Present Hypochromasia Moderate Poikilocytosis (manual Present Anisocytosis Moderate Macrocytosis Marked Target Cells Present PT 24.9 H (9.0-12.0) sec INR 2.6 H (<1.2) APTT 30.5 H (22.0-30.0) sec Sodium (137-145) mmol/L Potassium (3.5-5.1) mmol/L Chloride (98-107) mmol/L Carbon Dioxide (22-30) mmol/L Anion Gap mmol/L BUN (7-17) mg/dL Creatinine (0.52-1.04) mg/dL Est GFR (MDRD) Af Amer (>60 ml/min/1.73 sqM) Est GFR (MDRD) Non-Af (>60 ml/min/1.73 sqM) Glucose (74-99) mg/dL Calcium (8.4-10.2) mg/dL Total Bilirubin (0.2-1.3) mg/dL AST (14-36) U/L ALT (9-52) U/L Alkaline Phosphatase (38-126) U/L Total Creatine Kinase 52 (30-135) U/L CK-MB (CK-2) 1.3 (0.0-2.4) ng/mL CK-MB (CK-2) Rel Index 2.5 Troponin I 0.320 H* (0.000-0.034) ng/mL Total Protein (6.3-8.2) g/dL Albumin (3.5-5.0) g/dL Stool Occult Blood (Negative) 01/01/17 01/01/17 Range/Units 22:47 23:02 WBC (3.8-10.6) k/uL RBC (3.80-5.40) m/uL Hgb (11.4-16.0) gm/dL Hct (34.0-46.0) % MCV (80.0-100.0) fL MCH (25.0-35.0) pg MCHC (31.0-37.0) g/dL RDW (11.5-15.5) % Plt Count (150-450) k/uL Neutrophils % % Lymphocytes % % Monocytes % % Eosinophils % % Basophils % % Neutrophils # (1.3-7.7) k/uL Lymphocytes # (1.0-4.8) k/uL Monocytes # (0-1.0) k/uL Eosinophils # (0-0.7) k/uL Basophils # (0-0.2) k/uL Manual Slide Review Polychromasia Hypochromasia Poikilocytosis (manual Anisocytosis Macrocytosis Target Cells PT (9.0-12.0) sec INR (<1.2) APTT (22.0-30.0) sec Sodium 142 (137-145) mmol/L Potassium 4.9 (3.5-5.1) mmol/L Chloride 94 L (98-107) mmol/L Carbon Dioxide 29 (22-30) mmol/L Anion Gap 19 mmol/L BUN 40 H (7-17) mg/dL Creatinine 7.90 H* (0.52-1.04) mg/dL Est GFR (MDRD) Af Amer 6 (>60 ml/min/1.73 sqM) Est GFR (MDRD) Non-Af 5 (>60 ml/min/1.73 sqM) Glucose 252 H (74-99) mg/dL Calcium 9.3 (8.4-10.2) mg/dL Total Bilirubin 0.6 (0.2-1.3) mg/dL AST 34 (14-36) U/L ALT 22 (9-52) U/L Alkaline Phosphatase 97 (38-126) U/L Total Creatine Kinase (30-135) U/L CK-MB (CK-2) (0.0-2.4) ng/mL CK-MB (CK-2) Rel Index Troponin I (0.000-0.034) ng/mL Total Protein 7.5 (6.3-8.2) g/dL Albumin 4.3 (3.5-5.0) g/dL Stool Occult Blood Positive H (Negative) Disposition Clinical Impression: Bleeding on Coumadin, End stage renal disease on dialysis Disposition: ADMITTED IP TO THIS [facility] Condition: Serious Referrals: Ramiro Sethi MD [Primary Care Provider] - 1-2 days
[2017-01-01 23:02] LABS: Anisocytosis Moderate; Basophils % (A) 0 %; CH 31.7; CHCM 31.1; Eosinophils # (A) 0.2 k/uL (0-0.7); Eosinophils % (A) 3 %; HCT 33.6 % (34.0-46.0); HDW 3.24; HGB 10.1 gm/dL (11.4-16.0); Hypochromasia Moderate; Luc # (Auto) 0.12; Luc % (Auto) 2; Lymphocytes % (A) 19 %; MCH 30.8 pg (25.0-35.0); MCHC 30.1 g/dL (31.0-37.0); Macrocytosis Marked; Mean Platelet Volume 7.4; Monocytes # (A) 0.4 k/uL (0-1.0); Monocytes % (A) 7 %; Neutrophils # (A) 3.9 k/uL (1.3-7.7); Neutrophils % (A) 69 %; RBC 3.28 m/uL (3.80-5.40); RDW 22.2 % (11.5-15.5); WBC 5.6 k/uL (3.8-10.6); WBC (Perox) 5.59
[2017-01-01 23:06] LABS: Calcium 9.3 mg/dL (8.4-10.2); INR 2.6 (<1.2); Partial Thromboplastin Time 30.5 sec (22.0-30.0); Potassium 4.9 mmol/L (3.5-5.1); Prothrombin Time 24.9 sec (9.0-12.0); Total Bilirubin 0.6 mg/dL (0.2-1.3); Total Protein 7.5 g/dL (6.3-8.2)
[2017-01-01 23:10] LABS: MCV 102.3 fL (80.0-100.0)
[2017-01-01 23:32] LABS: Creatine Kinase MB 1.3 ng/mL (0.0-2.4)
[2017-01-01 23:34] LABS: Troponin I 0.32 ng/mL (0.000-0.034)
[2017-01-01 23:46] LABS: Polychromasia Present
[2017-01-01 23:47] LABS: Target Cells Present
[2017-01-01 23:49] LABS: Manual Review Performed
[2017-01-02] MEDS ORDERED: NALOXONE 0.4 MG/ML 1 ML VIAL IV PRN (00:32)
[2017-01-02] MEDS ORDERED: TEMAZEPAM 15 MG CAP PO PRN (00:37)
[2017-01-02] MEDS: SODIUM CHLORIDE 0.9% 1,000 ML IV SCH (01:03)
[2017-01-02 04:37] VITALS: BMI 25.7
[2017-01-02 06:00] LABS: Glucose,Whole Blood 268 mg/dL (75-99)
[2017-01-02 06:36] LABS: Creatine Kinase MB 0.9 ng/mL (0.0-2.4)
[2017-01-02 06:38] LABS: Troponin I 0.247 ng/mL (0.000-0.034)
[2017-01-02] MEDS: SEVELAMER 800 MG TAB PO SCH ×3 (06:44→17:17)
[2017-01-02] MEDS: INSULIN LISPRO (humaLOG) 300 UNIT/3 ML VIAL SQ SCH ×4 (06:44→21:14)
[2017-01-02] MEDS: PANTOPRAZOLE 40 MG/10 ML VIAL IV SCH (10:31)
[2017-01-02] MEDS: FUROSEMIDE 80 MG TAB PO SCH ×2 (10:32→20:34)
[2017-01-02 11:35] LABS: Glucose,Whole Blood 289 mg/dL (75-99)
--- NOTE | 2017-01-02 11:57 | P.CRDCN ---
History of Present Illness Consult date: 01/02/17 Requesting physician: Srinivas Black Reason for Consult (text): elevated troponin Chief complaint: bloody stool History of present illness: This a pleasant 56-year-old -[place] female patient who follows with Dr. Calixto in the office. She has a known history of hypertension, end- stage renal disease, on hemodialysis, prior MIs, prior stenting, diastolic heart failure, diabetes, GERD, prior GI bleeding a few years back not on anticoagulation, recently found to have paroxysmal atrial fibrillation and was started on Coumadin about a month ago. She presented to the emergency department with complaints of loose stools that she noticed the bloody. She was apparently recently on antibiotics which she had stopped due to side effects and shortly after developed some diarrhea. No complaints of angina, edema, shortness of breath, weakness, dizziness, or nausea and vomiting. She has noticed some musculoskeletal discomfort in her chest area, she says it feels like a pulled muscle. This discomfort is only there when turning a certain way and stretching her arms out. Neurology was placed in consult due to an incidental finding of elevated troponins with the first is 0.3-0 and the second is 0.247. Other laboratory values are reviewed and showed a hemoglobin of 10.1, INR 2.6, BUN of 40 and creatinine of 7.9. Upon examination, patient is resting comfortably in bed with her head of bed flat. She denies complaints of shortness of breath, edema or chest discomfort at this time. She's had no further bowel movements since admission. Past Medical History Past Medical History: Atrial Fibrillation, Coronary Artery Disease (CAD), Heart Failure, CVA/TIA, Diabetes Mellitus, GERD/Reflux, GI Bleed, Hyperlipidemia, Osteoarthritis (OA), Pneumonia, Renal Disease, Vascular Disorder Additional Past Medical History / Comment(s): Coronary artery disease, preserved LV function with an ejection fraction of 55% and moderate degree of MR , IDDM type II, End stage renal failure with hemodialysis [facility]-on kidney transplant list thru [facility], CVA 2007 with some peripheral vision problems R eye and R ear [place], lower GI bleed, PAD, DJD, diverticulosis, pancreatitis, bronchitis, TMJ, sinus problems at times, UTIs, benign polypectomies, anemia. History of Any Multi-Drug Resistant Organisms: None Reported Past Surgical History: Cholecystectomy, Heart Catheterization, Heart Catheterization With Stent, Hysterectomy Additional Past Surgical History / Comment(s): L upper arm for dialysis cath, 3 Cardiac stents, one stent rt leg, EGD/colonoscopies/benign polypectomies , bilateral cataract removal, laser sx bilateral eyes for retinopathy, D&C, left axillary I&D Past Anesthesia/Blood Transfusion Reactions: Motion Sickness, Postoperative Nausea & Vomiting (PONV) Additional Past Anesthesia/Blood Transfusion Reaction / Comment(s): Pt has received blood in the past without reaction. Date of Last Stent Placement:: 09/22/13 Past Psychological History: No Psychological Hx Reported Additional Psychological History / Comment(s): Pt resides with her spouse. She is normally independent.lives in a single level home that has 3 front steps. no pets. no home care services. has a glucometer, bp monitor. Smoking Status: Former smoker Past Alcohol Use History: Occasional Additional Past Alcohol Use History / Comment(s): Pt smoked from 1983 to 2012. 2 PPD Past Drug Use History: None Reported - Past Family History Mother Family Medical History: No Reported History Additional Family Medical History / Comment(s): Mother is 76 yrs old. Father Family Medical History: Diabetes Mellitus Additional Family Medical History / Comment(s): Father at the age of 42yrs- pt does not know reason. Medications and Allergies Home Medications Medication Instructions Recorded Confirmed Type Furosemide [Lasix] 80 mg PO BID 09/17/13 01/01/17 History Albuterol Inhaler [Ventolin Hfa 1 puff INHALATION RT-BID PRN 02/12/16 01/01/17 History Inhaler] Clopidogrel [Plavix] 75 mg PO DAILY tab 02/16/16 01/01/17 Rx Atorvastatin [Lipitor] 40 mg PO HS 07/16/16 01/01/17 History Insulin Aspart [NovoLOG Flexpen] See Protocol SQ AC-TID 07/16/16 01/01/17 History ALPRAZolam [Xanax] 0.25 mg PO HS PRN 07/29/16 01/01/17 History Aspirin EC [Ecotrin Low Dose] 81 mg PO DAILY 10/30/16 01/01/17 History Folic Acid-Vit B Complex-Vit C 1 cap PO DAILY 10/30/16 01/01/17 History [Nephrocaps] Nitroglycerin Sl Tabs [Nitrostat] 0.4 mg SUBLINGUAL Q5M PRN 10/30/16 01/01/17 History Sevelamer [Renvela] 2,400 mg PO AC-TID 10/30/16 01/01/17 History amLODIPine [Norvasc] 5 mg PO DAILY 10/30/16 01/01/17 History Temazepam [Restoril] 15 mg PO HS PRN #15 cap 11/01/16 01/01/17 Rx Metoprolol Succinate (ER) [Toprol 50 mg PO DAILY 11/26/16 01/01/17 History XL] Darbepoetin Doroteo [Aranesp] 40 mcg SQ Q7D syr 12/01/16 01/01/17 Rx Insulin Glargine,Hum.rec.anlog 38 unit SQ HS 01/01/17 01/01/17 History [Lantus Solostar] Warfarin [Coumadin] 5 mg PO HS@1800 01/01/17 01/01/17 History Allergies Allergy/AdvReac Type Severity Reaction Status Date / Time clonidine Allergy Anaphylaxis Verified 01/01/17 22:08 Iodinated Contrast- Oral and Allergy Anaphylaxis Verified 01/01/17 22:08 IV Dye iodine Allergy Anaphylaxis Verified 01/01/17 22:08 Penicillins Allergy Rash/Hives Verified 01/01/17 22:08 shellfish derived Allergy Anaphylaxis Verified 01/01/17 22:08 Physical Exam Vitals: Vital Signs Temp Pulse Pulse Resp BP BP Pulse Ox 01/02/17 04:30 97.0 F L 84 18 163/68 94 L 01/02/17 04:03 98.1 F 84 18 170/74 96 01/02/17 02:49 86 18 167/72 96 01/02/17 01:31 85 18 155/70 97 01/02/17 00:07 85 20 161/70 99 01/01/17 21:41 98.6 F 91 16 168/65 96 Intake and Output 01/01/17 01/02/17 01/02/17 22:59 06:59 14:59 Intake Total 160 240 Balance 160 240 Intake: Intake, IV Titration 160 Amount Sodium Chloride 0.9% 1, 160 000 ml @ 20 mls/hr IV . Q24H [facility] Rx#:[id number] Oral 240 Other: Voiding Method Toilet Weight 68.492 kg 68 kg PHYSICAL EXAMINATION: HEENT: Head is atraumatic, normocephalic. Pupils equal, round. Neck is supple. There is no elevated jugular venous pressure. HEART EXAMINATION: Heart sounds regular, S1 and S2 with a systolic murmur. CHEST EXAMINATION: Lungs are clear to auscultation and precussion. No chest wall tenderness is noted on palpation or with deep breathing. ABDOMEN: Soft, nontender. Bowel sounds are heard. No organomegaly noted. EXTREMITIES: 1+ peripheral pulses with no evidence of peripheral edema and no calf tenderness noted. NEUROLOGIC patient is awake, alert and oriented x3. . Results 01/01/17 22:47 01/01/17 22:47 Cardiac Enzymes 01/01/17 01/01/17 01/02/17 Range/Units 22:47 22:47 05:31 AST 34 (14-36) U/L CK-MB (CK-2) 1.3 0.9 (0.0-2.4) ng/mL Troponin I 0.320 H* 0.247 H* (0.000-0.034) ng/mL Coagulation 01/01/17 Range/Units 22:47 PT 24.9 H (9.0-12.0) sec APTT 30.5 H (22.0-30.0) sec CBC 01/01/17 Range/Units 22:47 WBC 5.6 (3.8-10.6) k/uL RBC 3.28 L (3.80-5.40) m/uL Hgb 10.1 L (11.4-16.0) gm/dL Hct 33.6 L (34.0-46.0) % Plt Count 374 (150-450) k/uL Comprehensive Metabolic Panel 01/01/17 Range/Units 22:47 Sodium 142 (137-145) mmol/L Potassium 4.9 (3.5-5.1) mmol/L Chloride 94 L (98-107) mmol/L Carbon Dioxide 29 (22-30) mmol/L BUN 40 H (7-17) mg/dL Creatinine 7.90 H* (0.52-1.04) mg/dL Glucose 252 H (74-99) mg/dL Calcium 9.3 (8.4-10.2) mg/dL AST 34 (14-36) U/L ALT 22 (9-52) U/L Alkaline Phosphatase 97 (38-126) U/L Total Protein 7.5 (6.3-8.2) g/dL Albumin 4.3 (3.5-5.0) g/dL Current Medications Generic Name Dose Route Start Last Admin Trade Name Freq PRN Reason Stop Dose Admin Albuterol Sulfate 2.5 mg 01/02/17 00:37 Ventolin Nebulized INHALATION RT-BID PRN Shortness Of Breath Alprazolam 0.25 mg 01/02/17 00:37 Xanax PO HS PRN Insomnia Amlodipine Besylate 5 mg 01/02/17 09:00 Norvasc PO DAILY [facility] Atorvastatin Calcium 40 mg 01/02/17 21:00 Lipitor PO HS [facility] Darbepoetin Doroteo 40 mcg 01/02/17 00:45 Aranesp SQ Q7D [facility] Furosemide 80 mg 01/02/17 09:00 Lasix PO BID [facility] Sodium Chloride 1,000 mls @ 20 mls/hr 01/02/17 00:45 01/02/17 01:03 Saline 0.9% IV 20 mls/hr .Q24H [facility] Administration Insulin Human Lispro 0 unit 01/02/17 07:30 01/02/17 06:44 Humalog SQ 4 unit ACHS [facility] Administration Protocol Metoprolol Succinate 50 mg 01/02/17 09:00 Toprol Xl PO DAILY [facility] Multivit/Ca Carb/B Cmplx/FA/Prenat 1 each 01/02/17 09:00 Nephrocaps PO DAILY [facility] Naloxone HCl 0.2 mg 01/02/17 00:32 Narcan IV Q2M PRN Opioid Reversal Pantoprazole Sodium 40 mg 01/02/17 09:00 Protonix IV DAILY [facility] Sevelamer Carbonate 2,400 mg 01/02/17 07:30 01/02/17 06:44 Renvela PO 2,400 mg AC-TID [facility] Administration Temazepam 15 mg 01/02/17 00:37 Restoril PO HS PRN Insomnia Intake and Output 01/01/17 01/02/17 01/02/17 22:59 06:59 14:59 Intake Total 160 240 Balance 160 240 Intake: Intake, IV Titration 160 Amount Sodium Chloride 0.9% 1, 160 000 ml @ 20 mls/hr IV . Q24H [facility] Rx#:[id number] Oral 240 Other: Voiding Method Toilet Weight 68.492 kg 68 kg 01/01/17 22:47 01/01/17 22:47 Assessment and Plan Assessment: Assessment and plan #1 GI bleed while on aspirin 81mg daily, coumadin and plavix. 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 If bleeding resolved and if OK with GI services, resume plavix and coumadin in a the next 48 hours. Further recommendations to follow. SEVERITY OF ILLNESS COORDINATOR note has been reviewed, I agree with a documented findings and plan of care. Patient was seen and examined.
[2017-01-02 12:09] LABS: Creatine Kinase MB 0.9 ng/mL (0.0-2.4)
[2017-01-02 12:14] LABS: Troponin I 0.195 ng/mL (0.000-0.034)
[2017-01-02] MEDS ORDERED: hydrALAZINE HCL 20 MG/ML 1 ML VIAL IVP PRN (12:31)
--- NOTE | 2017-01-02 12:54 | P.NPCON ---
History of Present Illness - Reason for Consult end stage renal disease - History of Present Illness Reason for consultation: End-stage renal disease History of present illness: Patient is a 56-year-old female seen in renal consultation for end-stage renal disease. She is maintained on hemodialysis on a Thursday schedule via left upper extremity AV graft. Patient presented to the hospital with GI bleed. Patient states she went to the bathroom yesterday evening around 5 PM and noticed her stool was darker than usual. Subsequently she noticed bright red blood as well. Patient was recently started on Coumadin for atrial fibrillation. She has history of coronary artery disease status post multiple interventions in the past. Her hemoglobin on admission was stable at 10.1. She hasn't had a bowel movement so far today. Denies chest pain or shortness of breath. No vomiting. Appetite is good. Hemodynamically stable. Vital signs are stable. General: The patient appeared well nourished and normally developed. HEENT: Head exam is unremarkable. Neck is without jugular venous distension. LUNGS: Lungs are clear to auscultation and percussion. Breath sounds decreased. HEART: Rate and Rhythm are regular. First and second heart sounds normal. No murmurs, rubs or gallops. ABDOMEN: Abdominal exam reveals normal bowel sounds. Non-tender and non- distended. No evidence of peritonitis. EXTREMITITES: No clubbing, cyanosis, or edema. Past Medical History Past Medical History: Atrial Fibrillation, Coronary Artery Disease (CAD), Heart Failure, CVA/TIA, Diabetes Mellitus, GERD/Reflux, GI Bleed, Hyperlipidemia, Osteoarthritis (OA), Pneumonia, Renal Disease, Vascular Disorder Additional Past Medical History / Comment(s): Coronary artery disease, preserved LV function with an ejection fraction of 55% and moderate degree of MR , IDDM type II, End stage renal failure with hemodialysis [facility]-on kidney transplant list thru [facility], CVA 2007 with some peripheral vision problems R eye and R ear [place], lower GI bleed, PAD, DJD, diverticulosis, pancreatitis, bronchitis, TMJ, sinus problems at times, UTIs, benign polypectomies, anemia. History of Any Multi-Drug Resistant Organisms: None Reported Past Surgical History: Cholecystectomy, Heart Catheterization, Heart Catheterization With Stent, Hysterectomy Additional Past Surgical History / Comment(s): L upper arm for dialysis cath, 3 Cardiac stents, one stent rt leg, EGD/colonoscopies/benign polypectomies , bilateral cataract removal, laser sx bilateral eyes for retinopathy, D&C, left axillary I&D Past Anesthesia/Blood Transfusion Reactions: Motion Sickness, Postoperative Nausea & Vomiting (PONV) Additional Past Anesthesia/Blood Transfusion Reaction / Comment(s): Pt has received blood in the past without reaction. Date of Last Stent Placement:: 09/22/13 Past Psychological History: No Psychological Hx Reported Additional Psychological History / Comment(s): Pt resides with her spouse. She is normally independent.lives in a single level home that has 3 front steps. no pets. no home care services. has a glucometer, bp monitor. Smoking Status: Former smoker Past Alcohol Use History: Occasional Additional Past Alcohol Use History / Comment(s): Pt smoked from 1983 to 2012. 2 PPD Past Drug Use History: None Reported - Past Family History Mother Family Medical History: No Reported History Additional Family Medical History / Comment(s): Mother is 76 yrs old. Father Family Medical History: Diabetes Mellitus Additional Family Medical History / Comment(s): Father at the age of 42yrs- pt does not know reason. Medications and Allergies Home Medications Medication Instructions Recorded Confirmed Type Furosemide [Lasix] 80 mg PO BID 09/17/13 01/01/17 History Albuterol Inhaler [Ventolin Hfa 1 puff INHALATION RT-BID PRN 02/12/16 01/01/17 History Inhaler] Clopidogrel [Plavix] 75 mg PO DAILY tab 02/16/16 01/01/17 Rx Atorvastatin [Lipitor] 40 mg PO HS 07/16/16 01/01/17 History Insulin Aspart [NovoLOG Flexpen] See Protocol SQ AC-TID 07/16/16 01/01/17 History ALPRAZolam [Xanax] 0.25 mg PO HS PRN 07/29/16 01/01/17 History Aspirin EC [Ecotrin Low Dose] 81 mg PO DAILY 10/30/16 01/01/17 History Folic Acid-Vit B Complex-Vit C 1 cap PO DAILY 10/30/16 01/01/17 History [Nephrocaps] Nitroglycerin Sl Tabs [Nitrostat] 0.4 mg SUBLINGUAL Q5M PRN 10/30/16 01/01/17 History Sevelamer [Renvela] 2,400 mg PO AC-TID 10/30/16 01/01/17 History amLODIPine [Norvasc] 5 mg PO DAILY 10/30/16 01/01/17 History Temazepam [Restoril] 15 mg PO HS PRN #15 cap 11/01/16 01/01/17 Rx Metoprolol Succinate (ER) [Toprol 50 mg PO DAILY 11/26/16 01/01/17 History XL] Darbepoetin Doroteo [Aranesp] 40 mcg SQ Q7D syr 12/01/16 01/01/17 Rx Insulin Glargine,Hum.rec.anlog 38 unit SQ HS 01/01/17 01/01/17 History [Lantus Solostar] Warfarin [Coumadin] 5 mg PO HS@1800 01/01/17 01/01/17 History Allergies Allergy/AdvReac Type Severity Reaction Status Date / Time clonidine Allergy Anaphylaxis Verified 01/01/17 22:08 Iodinated Contrast- Oral and Allergy Anaphylaxis Verified 01/01/17 22:08 IV Dye iodine Allergy Anaphylaxis Verified 01/01/17 22:08 Penicillins Allergy Rash/Hives Verified 01/01/17 22:08 shellfish derived Allergy Anaphylaxis Verified 01/01/17 22:08 Physical Exam Vitals: Vital Signs Temp Pulse Pulse Resp BP BP Pulse Ox 01/02/17 12:00 84 18 120/54 84 L 01/02/17 08:00 67 18 174/83 95 01/02/17 04:30 97.0 F L 84 18 163/68 94 L 01/02/17 04:03 98.1 F 84 18 170/74 96 01/02/17 02:49 86 18 167/72 96 01/02/17 01:31 85 18 155/70 97 01/02/17 00:07 85 20 161/70 99 01/01/17 21:41 98.6 F 91 16 168/65 96 Intake and Output 01/01/17 01/02/17 01/02/17 22:59 06:59 14:59 Intake Total 160 240 Balance 160 240 Intake: Intake, IV Titration 160 Amount Sodium Chloride 0.9% 1, 160 000 ml @ 20 mls/hr IV . Q24H [facility] Rx#:[id number] Oral 240 Other: Voiding Method Toilet Weight 68.492 kg 68 kg Results - Lab Results Most recent lab results Calcium 9.3 mg/dL (8.4-10.2) 01/01/17 22:47 01/01/17 22:47 01/01/17 22:47 Assessment and Plan Plan: Assessment: #1. End-stage renal disease maintained on hemodialysis on a Thursday schedule via left upper extremity AV graft. #2. GI bleed. Hemoglobin 10.1 on admission. #3. Chronic kidney disease mineral bone disease. #4. Hypertension with chronic kidney disease. Expect improvement postdialysis. #5. Insulin-dependent diabetes mellitus. #6. Thyroid nodule. She is to follow-up with endocrinology as an outpatient. Plan: Hemodialysis today with goal 2 liters ultrafiltration. Aranesp has been resumed. Coumadin is held. Await GI recommendations. Add hydralazine 10 mg IV as needed for systolic blood pressure greater than 160. Maintain Renvela with meals. Check phosphorus level. She was also noted to have an elevated PTH related peptide as an outpatient and is to see oncology as outpatient. Thank you for the consultation. I will continue to follow the patient with you during her hospital stay.
[2017-01-02 14:30] LABS: Hemoglobin A1C 8.4 % (4.2-6.1)
[2017-01-02] MEDS: FOLIC ACID-VIT B COMPLEX-VIT C 1 CAP PO SCH (15:02)
[2017-01-02 15:05] LABS: Glucose,Whole Blood 179 mg/dL (75-99)
[2017-01-02] MEDS ORDERED: ACETAMINOPHEN TAB 325 MG TAB PO PRN (15:05)
[2017-01-02 16:46] LABS: Glucose,Whole Blood 220 mg/dL (75-99)
[2017-01-02] MEDS: amLODIPine 5 MG TAB PO SCH (17:19)
[2017-01-02] MEDS: METOPROLOL SUCCINATE (ER) 50 MG TAB.ER.24H PO SCH (17:19)
[2017-01-02] MEDS: ALBUTEROL NEBULIZED 2.5 MG/3 ML INHALATION PRN (19:52)
[2017-01-02] MEDS: ATORVASTATIN 40 MG TAB PO SCH (20:34)
[2017-01-02 20:47] LABS: Glucose,Whole Blood 274 mg/dL (75-99)
[2017-01-02] MEDS: GABAPENTIN 100 MG CAP PO SCH (21:14)
[2017-01-02] MEDS: ALPRAZolam 0.25 MG TAB PO PRN (22:07)
--- NOTE | 2017-01-02 22:58 | P.HPIM ---
History of Present Illness H&P Date: 01/02/17 Chief Complaint: Blood in the stool Patient is a 56-year-old female with a past medical history of ESRD on hemodialysis MWF via AV graft, hypertension, diabetes type 2 history of coronary disease and recently diagnosed atrial fibrillation and was started on anticoagulation with Coumadin presented to the hospit with complaints of blood in the stool.. Patient states she went to the bathroom yesterday evening around 5 PM and noticed her stool was darker than usual. Subsequently she noticed bright red blood as well. She has history of coronary artery disease status post multiple interventions in the past. Her hemoglobin on admission was stable at 10.1. She hasn't had a bowel movement so far today. Denies chest pain or shortness of breath. No vomiting. Appetite is good. Hemodynamically stable. Review of Systems Constitutional: Patient denies any fever or chills . No generalized weakness or weight loss. Abdomen: Patient denied nausea vomiting and diarrhea and abdominal pain. Blood in the stool Cardiovascular: Patient denies any chest pain or short of breath no palpitations. Respiratory: patient denied any cough is from production. No shortness of breath Neurologic: Patient denied any numbness or tingling headache. Musculoskeletal: Patient denies any complaints of joint swelling or deformity. Skin: Negative Psychiatric: Negative Endocrine: No heat or cold intolerance. No recent weight gain. Genitourinary: No dysuria or hematuria. All other 14 point ROS negative except the above Past Medical History Past Medical History: Atrial Fibrillation, Coronary Artery Disease (CAD), Heart Failure, CVA/TIA, Diabetes Mellitus, GERD/Reflux, GI Bleed, Hyperlipidemia, Osteoarthritis (OA), Pneumonia, Renal Disease, Vascular Disorder Additional Past Medical History / Comment(s): Coronary artery disease, preserved LV function with an ejection fraction of 55% and moderate degree of MR , IDDM type II, End stage renal failure with hemodialysis MWF-on kidney transplant list thru [facility], CVA 2007 with some peripheral vision problems R eye and R ear [place], lower GI bleed, PAD, DJD, diverticulosis, pancreatitis, bronchitis, TMJ, sinus problems at times, UTIs, benign polypectomies, anemia. History of Any Multi-Drug Resistant Organisms: None Reported Past Surgical History: Cholecystectomy, Heart Catheterization, Heart Catheterization With Stent, Hysterectomy Additional Past Surgical History / Comment(s): L upper arm for dialysis cath, 3 Cardiac stents, one stent rt leg, EGD/colonoscopies/benign polypectomies , bilateral cataract removal, laser sx bilateral eyes for retinopathy, D&C, left axillary I&D Past Anesthesia/Blood Transfusion Reactions: Motion Sickness, Postoperative Nausea & Vomiting (PONV) Additional Past Anesthesia/Blood Transfusion Reaction / Comment(s): Pt has received blood in the past without reaction. Date of Last Stent Placement:: 09/22/13 Past Psychological History: No Psychological Hx Reported Additional Psychological History / Comment(s): Pt resides with her spouse. She is normally independent.lives in a single level home that has 3 front steps. no pets. no home care services. has a glucometer, bp monitor. Smoking Status: Former smoker Past Alcohol Use History: Occasional Additional Past Alcohol Use History / Comment(s): Pt smoked from 1983 to 2012. 2 PPD Past Drug Use History: None Reported - Past Family History Mother Family Medical History: No Reported History Additional Family Medical History / Comment(s): Mother is 76 yrs old. Father Family Medical History: Diabetes Mellitus Additional Family Medical History / Comment(s): Father at the age of 42yrs- pt does not know reason. Medications and Allergies Home Medications Medication Instructions Recorded Confirmed Type Furosemide [Lasix] 80 mg PO BID 09/17/13 01/01/17 History Albuterol Inhaler [Ventolin Hfa 1 puff INHALATION RT-BID PRN 02/12/16 01/01/17 History Inhaler] Clopidogrel [Plavix] 75 mg PO DAILY tab 02/16/16 01/01/17 Rx Atorvastatin [Lipitor] 40 mg PO HS 07/16/16 01/01/17 History Insulin Aspart [NovoLOG Flexpen] See Protocol SQ AC-TID 07/16/16 01/01/17 History ALPRAZolam [Xanax] 0.25 mg PO HS PRN 07/29/16 01/01/17 History Aspirin EC [Ecotrin Low Dose] 81 mg PO DAILY 10/30/16 01/01/17 History Folic Acid-Vit B Complex-Vit C 1 cap PO DAILY 10/30/16 01/01/17 History [Nephrocaps] Nitroglycerin Sl Tabs [Nitrostat] 0.4 mg SUBLINGUAL Q5M PRN 10/30/16 01/01/17 History Sevelamer [Renvela] 2,400 mg PO AC-TID 10/30/16 01/01/17 History amLODIPine [Norvasc] 5 mg PO DAILY 10/30/16 01/01/17 History Temazepam [Restoril] 15 mg PO HS PRN #15 cap 11/01/16 01/01/17 Rx Metoprolol Succinate (ER) [Toprol 50 mg PO DAILY 11/26/16 01/01/17 History XL] Darbepoetin Doroteo [Aranesp] 40 mcg SQ Q7D syr 12/01/16 01/01/17 Rx Insulin Glargine,Hum.rec.anlog 38 unit SQ HS 01/01/17 01/01/17 History [Lantus Solostar] Warfarin [Coumadin] 5 mg PO HS@1800 01/01/17 01/01/17 History Gabapentin [Neurontin] 100 mg PO TID 01/02/17 01/02/17 History Allergies Allergy/AdvReac Type Severity Reaction Status Date / Time clonidine Allergy Anaphylaxis Verified 01/01/17 22:08 Iodinated Contrast- Oral and Allergy Anaphylaxis Verified 01/01/17 22:08 IV Dye iodine Allergy Anaphylaxis Verified 01/01/17 22:08 Penicillins Allergy Rash/Hives Verified 01/01/17 22:08 shellfish derived Allergy Anaphylaxis Verified 01/01/17 22:08 Physical Exam Vitals: Vital Signs Temp Pulse Pulse Resp BP BP Pulse Ox 01/02/17 08:00 67 18 174/83 95 01/02/17 04:30 97.0 F L 84 18 163/68 94 L 01/02/17 04:03 98.1 F 84 18 170/74 96 01/02/17 02:49 86 18 167/72 96 01/02/17 01:31 85 18 155/70 97 01/02/17 00:07 85 20 161/70 99 01/01/17 21:41 98.6 F 91 16 168/65 96 Intake and Output 01/01/17 01/02/17 01/02/17 22:59 06:59 14:59 Intake Total 160 240 Balance 160 240 Intake: Intake, IV Titration 160 Amount Sodium Chloride 0.9% 1, 160 000 ml @ 20 mls/hr IV . Q24H [facility] Rx#:[id number] Oral 240 Other: Voiding Method Toilet Weight 68.492 kg 68 kg PHYSICAL EXAMINATION: Patient is lying in the bed comfortably, no acute distress, awake alert and oriented.. HEENT: Normocephalic. Neck is supple. Pupils reactive. Nostrils clear. Oral cavity is moist. Ears reveal no drainage. Neck reveals no JVD, carotid bruits, or thyromegaly. CHEST EXAMINATION: Trachea is central. Symmetrical expansion. Lung perez clear to auscultation and percussion. CARDIAC: Normal S1, S2 with no gallops. No murmurs ABDOMEN: Soft. Bowel sounds normal. No organomegaly. No abdominal bruits. Extremities: reveal no edema. No clubbing or cyanosis Neurologically awake, alert, oriented x3 with well-coordinated movements. No focal deficits noted Skin: No rash or skin lesions. Psychiatric: Cooperative. Nonsuicidal Musculoskeletal: No joint swelling or deformity. Normal range of motion. Results CBC & Chem 7: 01/01/17 22:47 01/01/17 22:47 Labs: Abnormal Lab Results - Last 24 Hours (Table) 01/01/17 01/01/17 01/01/17 Range/Units 22:47 22:47 22:47 RBC 3.28 L (3.80-5.40) m/uL Hgb 10.1 L (11.4-16.0) gm/dL Hct 33.6 L (34.0-46.0) % MCV 102.3 H D (80.0-100.0) fL MCHC 30.1 L (31.0-37.0) g/dL RDW 22.2 H (11.5-15.5) % PT 24.9 H (9.0-12.0) sec INR 2.6 H (<1.2) APTT 30.5 H (22.0-30.0) sec Chloride (98-107) mmol/L BUN (7-17) mg/dL Creatinine (0.52-1.04) mg/dL Glucose (74-99) mg/dL POC Glucose (mg/dL) (75-99) mg/dL Troponin I 0.320 H* (0.000-0.034) ng/mL Stool Occult Blood (Negative) 01/01/17 01/01/17 01/02/17 Range/Units 22:47 23:02 05:31 RBC (3.80-5.40) m/uL Hgb (11.4-16.0) gm/dL Hct (34.0-46.0) % MCV (80.0-100.0) fL MCHC (31.0-37.0) g/dL RDW (11.5-15.5) % PT (9.0-12.0) sec INR (<1.2) APTT (22.0-30.0) sec Chloride 94 L (98-107) mmol/L BUN 40 H (7-17) mg/dL Creatinine 7.90 H* (0.52-1.04) mg/dL Glucose 252 H (74-99) mg/dL POC Glucose (mg/dL) (75-99) mg/dL Troponin I 0.247 H* (0.000-0.034) ng/mL Stool Occult Blood Positive H (Negative) 01/02/17 01/02/17 01/02/17 Range/Units 05:55 11:11 11:28 RBC (3.80-5.40) m/uL Hgb (11.4-16.0) gm/dL Hct (34.0-46.0) % MCV (80.0-100.0) fL MCHC (31.0-37.0) g/dL RDW (11.5-15.5) % PT (9.0-12.0) sec INR (<1.2) APTT (22.0-30.0) sec Chloride (98-107) mmol/L BUN (7-17) mg/dL Creatinine (0.52-1.04) mg/dL Glucose (74-99) mg/dL POC Glucose (mg/dL) 268 H 289 H (75-99) mg/dL Troponin I 0.195 H* (0.000-0.034) ng/mL Stool Occult Blood (Negative) Microbiology - Last 24 Hours (Table) 01/02/17 00:35 Stool Culture - Preliminary Stool Thrombosis Risk Factor Assmnt - DVT/VTE Prophylaxis DVT/VTE Prophylaxis: Mechanical Prophylaxis ordered - Choose All That Apply Any of the Below Risk Factors Present?: Yes Each Factor Represents 1 point: Age 41-60 years Other Risk Factors: No Other congenital or acquired thrombophilia - If yes, enter type in comment: No Thrombosis Risk Factor Assessment Total Risk Factor Score: 1 Thrombosis Risk Factor Assessment Level: Low Risk Assessment and Plan Assessment: #1 Dark colored stools due to GI bleed. Hemoglobin 10.1. Hemoglobin during last discharge was 9.4 #2 paroxysmal atrial fibrillation on anticoagulation with Coumadin INR 2.6 #3 ESRD on hemo-dialysis #3 history of coronary artery disease status post stent placement #5. Anemia of chronic disease on epogen #6 elevated troponin level. Unlikely acute AL #7 diabetes type 2 uncontrolled with A1c 8.4 #8 hypertension #9 history of GI bleed in November 2015 Plan: Will continue to monitor H&H. Patient had previous colonoscopy and EGD done in November 2015. ECG showed mild duodenitis and colonoscopy showed cecal AV malformation. Cardiology and nephrology is following. Consult GI for evaluation. Patient is currently hemodynamically stable. We will continue the current management and further recommendations based on the clinical course. Time with Patient: Greater than 30
[2017-01-03] MEDS: SODIUM CHLORIDE 0.9% 1,000 ML IV SCH (01:30)
[2017-01-03 06:02] LABS: Glucose,Whole Blood 316 mg/dL (75-99)
[2017-01-03 06:32] LABS: Anisocytosis Moderate; Basophils % (A) 0 %; CH 32.2; CHCM 30.2; Eosinophils # (A) 0.1 k/uL (0-0.7); Eosinophils % (A) 3 %; HCT 28.8 % (34.0-46.0); HDW 3.09; Hypochromasia Marked; Luc % (Auto) 3; Lymphocytes # (A) 0.8 k/uL (1.0-4.8); Lymphocytes % (A) 21 %; MCH 31.6 pg (25.0-35.0); MCHC 29.4 g/dL (31.0-37.0); Macrocytosis Marked; Monocytes # (A) 0.3 k/uL (0-1.0); Monocytes % (A) 8 %; Neutrophils # (A) 2.4 k/uL (1.3-7.7); Neutrophils % (A) 65 %; RBC 2.68 m/uL (3.80-5.40); RDW 22.9 % (11.5-15.5); WBC 3.6 k/uL (3.8-10.6); WBC (Perox) 3.68
[2017-01-03] MEDS: SEVELAMER 800 MG TAB PO SCH ×3 (06:44→17:14)
[2017-01-03] MEDS: INSULIN LISPRO (humaLOG) 300 UNIT/3 ML VIAL SQ SCH ×6 (06:44→21:31)
[2017-01-03 06:47] LABS: Calcium 8.3 mg/dL (8.4-10.2); Potassium 4.3 mmol/L (3.5-5.1)
[2017-01-03 06:52] LABS: HGB 8.5 gm/dL (11.4-16.0)
[2017-01-03 06:53] LABS: MCV 107.4 fL (80.0-100.0)
[2017-01-03] MEDS: PANTOPRAZOLE 40 MG/10 ML VIAL IV SCH (09:23)
[2017-01-03] MEDS: FOLIC ACID-VIT B COMPLEX-VIT C 1 CAP PO SCH (09:24)
[2017-01-03] MEDS: METOPROLOL SUCCINATE (ER) 50 MG TAB.ER.24H PO SCH (09:24)
[2017-01-03] MEDS: FUROSEMIDE 80 MG TAB PO SCH ×2 (09:24→21:30)
[2017-01-03] MEDS: GABAPENTIN 100 MG CAP PO SCH ×3 (09:24→21:30)
[2017-01-03] MEDS: amLODIPine 5 MG TAB PO SCH (09:24)
--- NOTE | 2017-01-03 09:56 | P.PN ---
Subjective Progress Note Date: 01/03/17 Principal diagnosis: Patient is a 56-year-old female with a past medical history of ESRD on hemodialysis MWF via AV graft, hypertension, diabetes type 2 history of coronary disease and recently diagnosed atrial fibrillation and was started on anticoagulation with Coumadin presented to the hospital with complaints of blood in the stool. Patient states she went to the bathroom noticed her stool was darker than usual. Subsequently she noticed bright red blood as well. She has history of coronary artery disease status post multiple interventions in the past. Her hemoglobin on admission was stable at 10.1. Hemoglobin went down to 8.5 this morning. Her PT/INR was 2.9. She is off of Coumadin. No bowel movements so far today. She does have symptoms of GERD but was not on any medication because of lack of insurance coverage as per the patient. She does complain of some precordial soreness which is reproduced on pressure. It happened when she was trying to move her arm. Otherwise Denies chest pain or shortness of breath. No vomiting. Appetite is good. Hemodynamically stable. Objective - Vital Signs Vital signs: Vital Signs Temp 98.2 F 01/03/17 04:00 Pulse 92 01/03/17 04:00 Resp 18 01/03/17 04:00 BP 134/62 01/03/17 04:00 Pulse Ox 92 L 01/03/17 04:00 Intake & Output 01/02/17 01/03/17 01/03/17 18:59 06:59 18:59 Intake Total 540 200 360 Output Total 75 Balance 540 125 360 Weight 68.1 kg Intake: Intake, IV Titration 60 Amount Sodium Chloride 0.9% 1, 60 000 ml @ 20 mls/hr IV . Q24H [facility] Rx#:[id number] Oral 480 200 360 Output: Urine 75 Other: Voiding Method Toilet # Voids 1 1 On examination is awake alert oriented cheerful HEENT exam no JVP neck is supple no facial asymmetry Lungs are clear to auscultation percussion good air entry bilaterally Heart sounds are unremarkable for any murmur rub gallop She is in atrial fibrillation. Abdomen soft nontender tender No organomegaly status masses slightly distended abdomen she ceases normal Extremity exam was no edema Neurologically awake alert oriented, no Focal motor deficit - Labs CBC & Chem 7: 01/03/17 05:38 01/03/17 05:38 Labs: Abnormal Lab Results - Last 24 Hours (Table) 01/02/17 01/02/17 01/02/17 Range/Units 05:31 05:31 11:11 WBC (3.8-10.6) k/uL RBC (3.80-5.40) m/uL Hgb (11.4-16.0) gm/dL Hct (34.0-46.0) % MCV (80.0-100.0) fL MCHC (31.0-37.0) g/dL RDW (11.5-15.5) % Lymphocytes # (1.0-4.8) k/uL Carbon Dioxide (22-30) mmol/L BUN (7-17) mg/dL Creatinine (0.52-1.04) mg/dL Glucose (74-99) mg/dL POC Glucose (mg/dL) (75-99) mg/dL Hemoglobin A1c 8.4 H (4.2-6.1) % Calcium (8.4-10.2) mg/dL Phosphorus 7.5 H (2.5-4.5) mg/dL Troponin I 0.195 H* (0.000-0.034) ng/mL 01/02/17 01/02/17 01/02/17 Range/Units 11:28 15:02 16:41 WBC (3.8-10.6) k/uL RBC (3.80-5.40) m/uL Hgb (11.4-16.0) gm/dL Hct (34.0-46.0) % MCV (80.0-100.0) fL MCHC (31.0-37.0) g/dL RDW (11.5-15.5) % Lymphocytes # (1.0-4.8) k/uL Carbon Dioxide (22-30) mmol/L BUN (7-17) mg/dL Creatinine (0.52-1.04) mg/dL Glucose (74-99) mg/dL POC Glucose (mg/dL) 289 H 179 H 220 H (75-99) mg/dL Hemoglobin A1c (4.2-6.1) % Calcium (8.4-10.2) mg/dL Phosphorus (2.5-4.5) mg/dL Troponin I (0.000-0.034) ng/mL 01/02/17 01/03/17 01/03/17 Range/Units 20:44 05:38 05:38 WBC 3.6 L (3.8-10.6) k/uL RBC 2.68 L (3.80-5.40) m/uL Hgb 8.5 L D (11.4-16.0) gm/dL Hct 28.8 L (34.0-46.0) % MCV 107.4 H D (80.0-100.0) fL MCHC 29.4 L (31.0-37.0) g/dL RDW 22.9 H (11.5-15.5) % Lymphocytes # 0.8 L (1.0-4.8) k/uL Carbon Dioxide 20 L (22-30) mmol/L BUN 35 H (7-17) mg/dL Creatinine 5.87 H* (0.52-1.04) mg/dL Glucose 288 H (74-99) mg/dL POC Glucose (mg/dL) 274 H (75-99) mg/dL Hemoglobin A1c (4.2-6.1) % Calcium 8.3 L (8.4-10.2) mg/dL Phosphorus (2.5-4.5) mg/dL Troponin I (0.000-0.034) ng/mL 01/03/17 Range/Units 06:00 WBC (3.8-10.6) k/uL RBC (3.80-5.40) m/uL Hgb (11.4-16.0) gm/dL Hct (34.0-46.0) % MCV (80.0-100.0) fL MCHC (31.0-37.0) g/dL RDW (11.5-15.5) % Lymphocytes # (1.0-4.8) k/uL Carbon Dioxide (22-30) mmol/L BUN (7-17) mg/dL Creatinine (0.52-1.04) mg/dL Glucose (74-99) mg/dL POC Glucose (mg/dL) 316 H (75-99) mg/dL Hemoglobin A1c (4.2-6.1) % Calcium (8.4-10.2) mg/dL Phosphorus (2.5-4.5) mg/dL Troponin I (0.000-0.034) ng/mL Microbiology - Last 24 Hours (Table) 01/02/17 00:35 Stool Culture - Preliminary Stool Assessment and Plan Assessment: 1. ESRD on dialysis Thursday. 2. Admitted with both fresh bleeding and dark stool with history suggestive of GERD and previous colonoscopy showing AV malformation. Hemoglobin went down to 8.5 from 10.1. 3. On Coumadin with INR of 2.9 on admission, off of Coumadin currently 4. Atrial fibrillation. Stable 5. Slightly elevated troponin of 0.3 went down to 0.1, possible enzyme leak. 5. Diabetes not well controlled. Blood sugars 252-288 6. Mild metabolic acidosis secondary to ESRD. Bicarb at 20. Recommendation. Check PT INR. Hemodialysis next is Thursday possible endoscopy if necessary based on hemoglobin trending.
[2017-01-03 11:21] LABS: Glucose,Whole Blood 438 mg/dL (75-99)
--- NOTE | 2017-01-03 13:25 | CONS ---
CONSULTATION DATE OF CONSULTATION: 01/03/17 REQUESTING PHYSICIAN: Requesting physician Dr. Black and Dr. Sethi. REASON FOR CONSULTATION: Acute gastrointestinal bleed. HISTORY OF THE PRESENT ILLNESS: The patient is a 56-year-old pleasant female with history of end-stage renal disease, on hemodialysis, who was admitted to the hospital after having a few episodes of dark-colored stool and bright red blood in the stool. The patient has history of end-stage renal disease on hemodialysis. After dialysis on Thursday she started having some diarrhea that progressively got worse and towards evening it started turning dark and then bright red blood. She had two of these episodes, became concerned and came to the emergency room and subsequently admitted to the hospital for further evaluation. Since being in the hospital, did not have any further episodes of bleeding. In fact she had one bowel movement this morning that was dark in color. She reports no abdominal pain. No fever, chills, night sweats. Hemoglobin at admission was 10.1 and this morning is 8.5 g/dL. 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 PAST MEDICAL HISTORY: Significant for atrial fibrillation on Coumadin, presently on hold, coronary artery disease, congestive heart failure, end-stage renal disease, on hemodialysis. Hyperlipidemia, hypertension, diabetes mellitus. MEDICATIONS: At home include Lasix, Ventolin, Plavix, Lipitor, NovoLog, Coumadin, Nitrostat, aspirin, Xanax, Restoril, Renvela, Neurontin. SOCIAL HISTORY: No smoking or alcohol use. FAMILY HISTORY: Unremarkable. PAST SURGICAL HISTORY: Cholecystectomy. AV fistula left upper arm. She had an EGD and colonoscopy February of 2016, bilateral cataract surgery. FAMILY HISTORY: Mother is 76-year-old and father has diabetes. REVIEW OF SYSTEMS: Cardiopulmonary: No chest pain, shortness of breath. Genitourinary: No dysuria or hematuria. Musculoskeletal unremarkable. Skin unremarkable. Endocrine unremarkable. Psychiatric: Unremarkable. ENT vision unremarkable. Constitutional: No recent weight loss. No fever, chills, night sweats. PHYSICAL EXAMINATION: On physical examination she appears comfortable in no apparent distress. VITAL SIGNS: Stable. Blood pressure is 134/62, pulse 90, and temperature 98.2. HEENT: Examination unremarkable. Conjunctivae pink. Sclerae anicteric. Oral cavity no lesions. Neck no JVD or lymph node enlargement. Chest clear to auscultation. HEART: Regular rate and rhythm. ABDOMEN: Soft. Bowel sounds are positive. No organomegaly. Extremities: No pedal edema. Skin no rashes. NEUROLOGIC: Alert and oriented x3. No focal deficits. LABS: WBC 3.6, hemoglobin 8.5, platelets normal at 280. Basic metabolic panel is within normal limits. INR is 2.6 yesterday, today it was not done. BUN is 35, creatinine 5.87. IMPRESSION: 1. Acute gastrointestinal bleed, possibly colonic etiology. The patient had 2 episodes of dark/maroon colored stools and bright red blood 2 days ago and since has stopped. She has history of atrial fibrillation on Coumadin which has been on hold. Coronary artery disease on Plavix that has been on hold. No bleeding for the last 24 hours. Hemodynamically stable. She, however, dropped hemoglobin from 10.5 g/dL. She did have a colonoscopy as mentioned above in February of 2016 and was noted to have a bleeding arteriovenous malformation the base of the cecum which appears to be the source of bleeding again. 2. History of atrial fibrillation on Coumadin, which is present on hold. RECOMMENDATIONS: 1. Continue with regular diet. 2. Repeat CBC in the morning. 3. If she has further bleeding, I will consider endoscopy workup. However, if the bleeding stops completely, we can hold off on anticoagulation for 2-3 days and resume it. I discussed the plan with the patient and she is agreeable to it. Further recommendations will be made based on the clinical course. Thank you for this consultation. MMODL / IJN: [id number] /
--- NOTE | 2017-01-03 15:03 | P.PN ---
Subjective Progress Note Date: 01/03/17 Principal diagnosis: GI bleed This a pleasant 56-year-old -[place] female patient who follows with Dr. Calixto in the office. She has a known history of hypertension, end- stage renal disease, on hemodialysis, prior MIs, prior stenting, diastolic heart failure, diabetes, GERD, prior GI bleeding a few years back not on anticoagulation, recently found to have paroxysmal atrial fibrillation and was started on Coumadin about a month ago. She presented to the emergency department with complaints of loose stools that she noticed the bloody. She was apparently recently on antibiotics which she had stopped due to side effects and shortly after developed some diarrhea. No complaints of angina, edema, shortness of breath, weakness, dizziness, or nausea and vomiting. She has noticed some musculoskeletal discomfort in her chest area, she says it feels like a pulled muscle. This discomfort is only there when turning a certain way and stretching her arms out. Neurology was placed in consult due to an incidental finding of elevated troponins with the first is 0.3-0 and the second is 0.247. Other laboratory values are reviewed and showed a hemoglobin of 10.1, INR 2.6, BUN of 40 and creatinine of 7.9. Upon examination, patient is resting comfortably in bed with her head of bed flat. She denies complaints of shortness of breath, edema or chest discomfort at this time. She's had no further bowel movements since admission. 01/03/17 Patient seen and examined today. She denies any further bowel movements since admission. She denies any shortness of breath, orthopnea, PND, chest discomfort or edema. She has had a hemoglobin dropped to 8.5. Dr. Tati Rose has been in to see the patient and has recommended to hold anticoagulation for now. If she has further bleeding, she will consider endoscopy. The patient has no further bleeding, continue to hold anticoagulants for 2-3 days and then resume. Objective - Vital Signs Vital signs: Vital Signs Temp 97.1 F L 01/03/17 08:00 Pulse 90 01/03/17 12:00 Resp 16 01/03/17 12:00 BP 167/72 01/03/17 12:00 Pulse Ox 100 01/03/17 12:00 Intake & Output 01/02/17 01/03/17 01/03/17 18:59 06:59 18:59 Intake Total 540 200 720 Output Total 75 400 Balance 540 125 320 Weight 68.1 kg Intake: Intake, IV Titration 60 Amount Sodium Chloride 0.9% 1, 60 000 ml @ 20 mls/hr IV . Q24H [facility] Rx#:[id number] Oral 480 200 720 Output: Urine 75 400 Other: Voiding Method Toilet Toilet # Voids 1 1 - Exam PHYSICAL EXAMINATION: HEENT: Head is atraumatic, normocephalic. Pupils equal, round. Neck is supple. There is no elevated jugular venous pressure. HEART EXAMINATION: Heart sounds regular, S1 and S2 with a systolic murmur. CHEST EXAMINATION: Lungs are clear to auscultation and precussion. No chest wall tenderness is noted on palpation or with deep breathing. ABDOMEN: Soft, nontender. Bowel sounds are heard. No organomegaly noted. EXTREMITIES: 1+ peripheral pulses with no evidence of peripheral edema and no calf tenderness noted. NEUROLOGIC patient is awake, alert and oriented x3. - Labs CBC & Chem 7: 01/03/17 05:38 01/03/17 05:38 Labs: Abnormal Lab Results - Last 24 Hours (Table) 01/02/17 01/02/17 01/02/17 Range/Units 15:02 16:41 20:44 WBC (3.8-10.6) k/uL RBC (3.80-5.40) m/uL Hgb (11.4-16.0) gm/dL Hct (34.0-46.0) % MCV (80.0-100.0) fL MCHC (31.0-37.0) g/dL RDW (11.5-15.5) % Lymphocytes # (1.0-4.8) k/uL Carbon Dioxide (22-30) mmol/L BUN (7-17) mg/dL Creatinine (0.52-1.04) mg/dL Glucose (74-99) mg/dL POC Glucose (mg/dL) 179 H 220 H 274 H (75-99) mg/dL Calcium (8.4-10.2) mg/dL 01/03/17 01/03/17 01/03/17 Range/Units 05:38 05:38 06:00 WBC 3.6 L (3.8-10.6) k/uL RBC 2.68 L (3.80-5.40) m/uL Hgb 8.5 L D (11.4-16.0) gm/dL Hct 28.8 L (34.0-46.0) % MCV 107.4 H D (80.0-100.0) fL MCHC 29.4 L (31.0-37.0) g/dL RDW 22.9 H (11.5-15.5) % Lymphocytes # 0.8 L (1.0-4.8) k/uL Carbon Dioxide 20 L (22-30) mmol/L BUN 35 H (7-17) mg/dL Creatinine 5.87 H* (0.52-1.04) mg/dL Glucose 288 H (74-99) mg/dL POC Glucose (mg/dL) 316 H (75-99) mg/dL Calcium 8.3 L (8.4-10.2) mg/dL 01/03/17 Range/Units 11:16 WBC (3.8-10.6) k/uL RBC (3.80-5.40) m/uL Hgb (11.4-16.0) gm/dL Hct (34.0-46.0) % MCV (80.0-100.0) fL MCHC (31.0-37.0) g/dL RDW (11.5-15.5) % Lymphocytes # (1.0-4.8) k/uL Carbon Dioxide (22-30) mmol/L BUN (7-17) mg/dL Creatinine (0.52-1.04) mg/dL Glucose (74-99) mg/dL POC Glucose (mg/dL) 438 H (75-99) mg/dL Calcium (8.4-10.2) mg/dL Assessment and Plan Assessment: Assessment and plan #1 GI bleed while on aspirin 81mg daily, coumadin and plavix. 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 Continue to hold anticoagulation. We agree with recommendations placed by Dr. Tati Nobles. Further recommendations to follow. MINE DEPUTY note has been reviewed, I agree with a documented findings and plan of care. Patient was seen and examined.
[2017-01-03 16:44] LABS: Glucose,Whole Blood 298 mg/dL (75-99)
[2017-01-03] MEDS: ALBUTEROL NEBULIZED 2.5 MG/3 ML INHALATION PRN (19:41)
[2017-01-03 20:50] LABS: Glucose,Whole Blood 136 mg/dL (75-99)
[2017-01-03] MEDS: ATORVASTATIN 40 MG TAB PO SCH (21:30)
[2017-01-03] MEDS: INSULIN GLARGINE 100 UNIT/ML 10 ML VIAL SQ SCH (21:31)
[2017-01-03] MEDS: ALPRAZolam 0.25 MG TAB PO PRN (22:49)
--- NOTE | 2017-01-03 23:58 | P.PN ---
Subjective Progress Note Date: 01/03/17 Principal diagnosis: Dark-colored stools Patient is a 56-year-old female with a past medical history of ESRD on hemodialysis MWF via AV graft, hypertension, diabetes type 2 history of coronary disease and recently diagnosed atrial fibrillation and was started on anticoagulation with Coumadin presented to the hospit with complaints of blood in the stool.. Patient states she went to the bathroom yesterday evening around 5 PM and noticed her stool was darker than usual. Subsequently she noticed bright red blood as well. She has history of coronary artery disease status post multiple interventions in the past. Her hemoglobin on admission was stable at 10.1. She hasn't had a bowel movement so far today. Denies chest pain or shortness of breath. No vomiting. Appetite is good. Hemodynamically stable. 01/03/2017 Patient denied any further episodes of blood in the stool. Hemoglobin dropped to 8.5 today. Otherwise patient denied any chest pain or short of breath. Patient was seen by gastrology and recommended to follow with H&H. Otherwise no acute overnight issues. All other review of systems negative except the above Current medications reviewed Objective - Vital Signs Vital signs: Vital Signs Temp 97.1 F L 01/03/17 08:00 Pulse 80 01/03/17 19:57 Resp 16 01/03/17 16:00 BP 134/64 01/03/17 16:00 Pulse Ox 92 L 01/03/17 16:00 Intake & Output 01/03/17 01/03/17 01/04/17 06:59 18:59 06:59 Intake Total 200 1080 Output Total 75 400 Balance 125 680 Weight 68.1 kg Intake: Oral 200 1080 Output: Urine 75 400 Other: Voiding Method Toilet Toilet # Voids 1 1 - Exam Patient is lying in the bed comfortably, no acute distress, awake alert and oriented.. HEENT: Normocephalic. Neck is supple. Pupils reactive. Nostrils clear. Oral cavity is moist. Ears reveal no drainage. Neck reveals no JVD, carotid bruits, or thyromegaly. CHEST EXAMINATION: Trachea is central. Symmetrical expansion. Lung perez clear to auscultation and percussion. CARDIAC: Normal S1, S2 with no gallops. No murmurs ABDOMEN: Soft. Bowel sounds normal. No organomegaly. No abdominal bruits. Extremities: reveal no edema. No clubbing or cyanosis Neurologically awake, alert, oriented x3 with well-coordinated movements. No focal deficits noted Skin: No rash or skin lesions. Psychiatric: Cooperative. Nonsuicidal Musculoskeletal: No joint swelling or deformity. Normal range of motion. - Labs CBC & Chem 7: 01/03/17 05:38 01/03/17 05:38 Labs: Abnormal Lab Results - Last 24 Hours (Table) 01/02/17 01/03/17 01/03/17 Range/Units 20:44 05:38 05:38 WBC 3.6 L (3.8-10.6) k/uL RBC 2.68 L (3.80-5.40) m/uL Hgb 8.5 L D (11.4-16.0) gm/dL Hct 28.8 L (34.0-46.0) % MCV 107.4 H D (80.0-100.0) fL MCHC 29.4 L (31.0-37.0) g/dL RDW 22.9 H (11.5-15.5) % Lymphocytes # 0.8 L (1.0-4.8) k/uL Carbon Dioxide 20 L (22-30) mmol/L BUN 35 H (7-17) mg/dL Creatinine 5.87 H* (0.52-1.04) mg/dL Glucose 288 H (74-99) mg/dL POC Glucose (mg/dL) 274 H (75-99) mg/dL Calcium 8.3 L (8.4-10.2) mg/dL 01/03/17 01/03/17 01/03/17 Range/Units 06:00 11:16 16:29 WBC (3.8-10.6) k/uL RBC (3.80-5.40) m/uL Hgb (11.4-16.0) gm/dL Hct (34.0-46.0) % MCV (80.0-100.0) fL MCHC (31.0-37.0) g/dL RDW (11.5-15.5) % Lymphocytes # (1.0-4.8) k/uL Carbon Dioxide (22-30) mmol/L BUN (7-17) mg/dL Creatinine (0.52-1.04) mg/dL Glucose (74-99) mg/dL POC Glucose (mg/dL) 316 H 438 H 298 H (75-99) mg/dL Calcium (8.4-10.2) mg/dL Assessment and Plan Assessment: #1 Dark colored stools due to GI bleed. Hemoglobin 10.1 on admission. Hemoglobin during last discharge was 9.4. #2 paroxysmal atrial fibrillation on anticoagulation with Coumadin INR 2.6 #3 ESRD on hemo-dialysis #3 history of coronary artery disease status post stent placement #5. Anemia of chronic disease on epogen #6 elevated troponin level. Unlikely acute [place] #7 diabetes type 2 uncontrolled with A1c 8.4 #8 hypertension #9 history of GI bleed in November 2015 Plan: Will continue to monitor H&H. Hemoglobin dropped from 10 0.12 8.5 today. Patient had previous colonoscopy and EGD done in November 2015. ECG showed mild duodenitis and colonoscopy showed cecal AV malformation. Continue to hold aspirin and Plavix and anticoagulation. Cardiology and nephrology is following. Patient was seen by GI.. Patient is currently hemodynamically stable. We will continue the current management and further recommendations based on the clinical course. Time with Patient: Greater than 30
[2017-01-04] MEDS: SODIUM CHLORIDE 0.9% 1,000 ML IV SCH (01:03)
[2017-01-04 05:59] LABS: Glucose,Whole Blood 247 mg/dL (75-99)
[2017-01-04 06:28] LABS: Anisocytosis Moderate; Basophils % (A) 1 %; CH 31.3; CHCM 29.4; Eosinophils # (A) 0.2 k/uL (0-0.7); Eosinophils % (A) 4 %; HCT 27.6 % (34.0-46.0); HDW 3.06; Hypochromasia Marked; Luc # (Auto) 0.09; Luc % (Auto) 2; Lymphocytes % (A) 22 %; MCH 30.9 pg (25.0-35.0); MCV 106.7 fL (80.0-100.0); Macrocytosis Marked; Mean Platelet Volume 7.3; Monocytes # (A) 0.3 k/uL (0-1.0); Monocytes % (A) 7 %; Neutrophils # (A) 2.8 k/uL (1.3-7.7); Neutrophils % (A) 63 %; RBC 2.59 m/uL (3.80-5.40); RDW 21.4 % (11.5-15.5); WBC 4.4 k/uL (3.8-10.6); WBC (Perox) 4.28
[2017-01-04 06:29] LABS: Prothrombin Time 10.5 sec (9.0-12.0)
[2017-01-04] MEDS: SEVELAMER 800 MG TAB PO SCH ×3 (07:08→17:05)
[2017-01-04] MEDS: INSULIN LISPRO (humaLOG) 300 UNIT/3 ML VIAL SQ SCH ×6 (07:08→21:54)
[2017-01-04] MEDS: ALBUTEROL NEBULIZED 2.5 MG/3 ML INHALATION PRN ×2 (08:10→19:21)
[2017-01-04] MEDS: FOLIC ACID-VIT B COMPLEX-VIT C 1 CAP PO SCH (08:36)
[2017-01-04] MEDS: FUROSEMIDE 80 MG TAB PO SCH ×2 (08:36→20:29)
[2017-01-04] MEDS: amLODIPine 5 MG TAB PO SCH (08:36)
[2017-01-04] MEDS: METOPROLOL SUCCINATE (ER) 50 MG TAB.ER.24H PO SCH (08:37)
[2017-01-04] MEDS: GABAPENTIN 100 MG CAP PO SCH ×3 (08:37→20:29)
[2017-01-04] MEDS: PANTOPRAZOLE 40 MG/10 ML VIAL IV SCH (08:37)
[2017-01-04 08:59] VITALS: RESP 16
[2017-01-04 11:30] LABS: Glucose,Whole Blood 163 mg/dL (75-99)
--- NOTE | 2017-01-04 12:52 | PN ---
PROGRESS NOTE Patient is a 56-year-old female with history of end-stage renal disease on hemodialysis and Coumadin was admitted to the hospital with acute lower GI bleeding. She had several episodes of red and dark colored stool on Thursday and for the last 2 days she did not have any further episodes. She had normal bowel movement this morning. Reports no abdominal pain. No nausea, vomiting. PHYSICAL EXAMINATION: She appears comfortable. No apparent distress. VITAL SIGNS: Stable. Blood pressure is 136/82, pulse rate 82 per minute and afebrile. HEENT EXAMINATION: Unremarkable. Conjunctivae pink. Sclerae anicteric. Oral cavity, no lesions. NECK: No jugular venous distention or lymph node enlargement. CHEST: Clear to auscultation. HEART: Regular rate and rhythm. ABDOMEN: Soft. Bowel sounds are positive. No organomegaly. EXTREMITIES: No pedal edema. SKIN: No rashes. NEUROLOGIC: Alert and oriented x3. No focal deficits. LABS: Hemoglobin is down to 8, WBC 4.4, platelets normal. INR is 1. IMPRESSION: 1. Acute GI bleed, possibly lower in etiology. She had an EGD colonoscopy done by me in February of 2016 and was noted to have bleeding arteriovenous malformation of the cecum that was cauterized. It appears that the rectal bleeding is probably colonic in etiology. However, for the last 48 hours she did not have any further episodes of bleeding and hemoglobin is at 8 g/dL. 2. Atrial fibrillation on Coumadin, presently on hold. RECOMMENDATION: Since the bleeding has completely stopped and she remains stable, I will not plan on any endoscopic intervention during this hospitalization. I did discuss with Dr. Black that the patient can be discharged home today and I told her to stop the Coumadin for 3 more days and resume it on Thursday. If she has any bleeding after she starts the Coumadin, she was advised to call me immediately or come to the hospital. Thank you for this consultation. MMODL / IJN: [id number] /
--- NOTE | 2017-01-04 14:09 | P.PN ---
Subjective Progress Note Date: 01/04/17 Principal diagnosis: GI bleed This is 56-year-old -[place] female with known history of hypertension, end-stage renal disease on hemodialysis, prior myocardial infarction with stent placements, GERD, diabetes, who presented to the hospital with bloody stools. She was seen in consultation by Dr. Roosevelt Nobles, patient had an EGD and colonoscopy done in February 2016. She did not have any further episodes of bleeding in the past 48 hours, hemoglobin 8. Patient will not have any repeat endoscopy procedures this admission. Dr. Rose's recommendation is that the patient can be discharged home, and hold Coumadin for 3 more days and resume once daily. We will check to see her regarding the use of cocaine and Plavix. We will make a follow-up appointment in the office post discharge. Objective - Vital Signs Vital signs: Vital Signs Temp 96.8 F L 01/04/17 12:00 Pulse 74 01/04/17 13:45 Resp 16 01/04/17 13:45 BP 178/74 01/04/17 12:00 Pulse Ox 96 01/04/17 08:00 Intake & Output 01/03/17 01/04/17 01/04/17 18:59 06:59 18:59 Intake Total 1080 600 Output Total 400 100 500 Balance 680 -100 100 Weight 69.8 kg Intake: Oral 1080 600 Output: Urine 400 100 500 Other: Voiding Method Toilet Toilet Toilet # Voids 1 0 0 - Exam PHYSICAL EXAMINATION: HEENT: Head is atraumatic, normocephalic. Pupils equal, round. Neck is supple. There is no elevated jugular venous pressure. HEART EXAMINATION: Heart S1 and S2, systolic murmur is heard. CHEST EXAMINATION: Lungs are clear to auscultation and precussion. No chest wall tenderness is noted on palpation or with deep breathing. ABDOMEN: Soft, nontender. Bowel sounds are heard. No organomegaly noted. EXTREMITIES: 1+ peripheral pulses with no evidence of peripheral edema and no calf tenderness noted. NEUROLOGIC patient is awake, alert and oriented -3. . - Labs CBC & Chem 7: 01/04/17 05:56 01/03/17 05:38 Labs: Abnormal Lab Results - Last 24 Hours (Table) 01/03/17 01/03/17 01/04/17 Range/Units 16:29 20:49 05:56 RBC 2.59 L (3.80-5.40) m/uL Hgb 8.0 L (11.4-16.0) gm/dL Hct 27.6 L (34.0-46.0) % MCV 106.7 H (80.0-100.0) fL MCHC 29.0 L (31.0-37.0) g/dL RDW 21.4 H (11.5-15.5) % POC Glucose (mg/dL) 298 H 136 H (75-99) mg/dL 01/04/17 01/04/17 Range/Units 05:58 11:25 RBC (3.80-5.40) m/uL Hgb (11.4-16.0) gm/dL Hct (34.0-46.0) % MCV (80.0-100.0) fL MCHC (31.0-37.0) g/dL RDW (11.5-15.5) % POC Glucose (mg/dL) 247 H 163 H (75-99) mg/dL Microbiology - Last 24 Hours (Table) 01/02/17 00:35 Stool Culture - Preliminary Stool Assessment and Plan Plan: Assessment and plan #1 GI bleed, on aspirin Coumadin and Plavix at home. All currently on hold. 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 Nobles wishes to hold the Coumadin until Thursday, we will have the nurse call her regarding resuming the Plavix as well. We will continue to hold the aspirin. We will make a follow-up appointment for the patient in the office post discharge. DNP note has been reviewed, I agree with a documented findings and plan of care. Patient was seen and examined.
[2017-01-04] MEDS ORDERED: POLYETHYLENE GLYCOL 3350 17 GM POWD.PACK PO STA (14:29)
[2017-01-04 15:23] LABS: Glucose,Whole Blood 114 mg/dL (75-99)
[2017-01-04 16:49] LABS: Glucose,Whole Blood 132 mg/dL (75-99)
[2017-01-04] MEDS: ATORVASTATIN 40 MG TAB PO SCH (20:28)
[2017-01-04 20:50] LABS: Glucose,Whole Blood 142 mg/dL (75-99)
[2017-01-04] MEDS: INSULIN GLARGINE 100 UNIT/ML 10 ML VIAL SQ SCH (21:53)
--- NOTE | 2017-01-05 03:23 | PN ---
PROGRESS NOTE Patient is seen for followup for end-stage renal disease. Currently, she complains of constipation. She denies any other significant complaints. The patient is scheduled for hemodialysis in a.m. She is drinking MiraLAX. EXAMINATION: Patient is comfortable, awake, not in any acute distress. Blood pressure is 134/63, heart rate 52 per minute. She is afebrile. Examination of the heart S1, S2. Examination lungs bilateral breath sounds are heard. Abdomen is soft, nontender. Examination lower extremities shows trace edema bilaterally. LABORER DRIVER exam is grossly intact. LABS SHOW: Hemoglobin 8.0 g/dL. The potassium was 4.3 yesterday. ASSESSMENT: 1. End-stage renal disease, on hemodialysis on a Thursday, Thursday, Thursday schedule. Patient will be dialyzed tomorrow. 2. Anemia of chronic disease maintained on Aranesp. 3. History of for hypotension during dialysis according to the patient. I have advised her that we can use midodrine to help with ultrafiltration if her blood pressure drops during treatment. 4. Acute gastrointestinal bleed in being followed by Gastroenterology with previous history of EGD done in February of 2016. PLAN: Hemodialysis in a.m. and we can use midodrine if blood pressure drops during treatment. MMODL / IJN: [id number] /
[2017-01-05 06:08] LABS: Glucose,Whole Blood 262 mg/dL (75-99)
[2017-01-05] MEDS: INSULIN LISPRO (humaLOG) 300 UNIT/3 ML VIAL SQ SCH ×4 (06:42→12:11)
[2017-01-05] MEDS: SEVELAMER 800 MG TAB PO SCH ×2 (06:44→12:09)
[2017-01-05] MEDS ORDERED: MIDODRINE 5 MG TAB PO ONE (07:30)
[2017-01-05] MEDS: ALBUTEROL NEBULIZED 2.5 MG/3 ML INHALATION PRN (08:46)
[2017-01-05] MEDS ORDERED: DARBEPOETIN ALFA 40 MCG/0.4 ML SYRINGE SQ SCH (09:00)
--- NOTE | 2017-01-05 09:12 | P.PN ---
Subjective Patient is seen in follow-up for end-stage renal disease. She is maintained on hemodialysis on a Thursday schedule. Patient presented to the hospital after she noticed bright red blood per rectum. Patient was recently started on Coumadin for atrial fibrillation which is currently held. She denies any chest pain or shortness of breath. Last bowel movement was on Thursday which was dark. Oral intake is good. Denies abdominal pain. Hemodynamically stable. Vital signs are stable. General: The patient appeared well nourished and normally developed. HEENT: Head exam is unremarkable. Neck is without jugular venous distension. LUNGS: Lungs are clear to auscultation and percussion. Breath sounds decreased. HEART: Rate and Rhythm are regular. First and second heart sounds normal. No murmurs, rubs or gallops. ABDOMEN: Abdominal exam reveals normal bowel sounds. Non-tender and non- distended. No evidence of peritonitis. EXTREMITITES: No clubbing, cyanosis, or edema. Objective - Vital Signs Vital signs: Vital Signs Temp 97 F L 01/04/17 20:37 Pulse 88 01/05/17 08:58 Resp 16 01/05/17 04:00 BP 138/61 01/05/17 06:52 Pulse Ox 94 L 01/05/17 04:00 Intake & Output 01/04/17 01/05/17 01/05/17 18:59 06:59 18:59 Intake Total 840 200 120 Output Total 500 250 Balance 340 -50 120 Weight 71.8 kg Intake: Oral 840 200 120 Output: Urine 500 250 Other: Voiding Method Toilet Toilet # Voids 0 1 0 # Bowel Movements 0 - Labs CBC & Chem 7: 01/04/17 05:56 01/03/17 05:38 Labs: Abnormal Lab Results - Last 24 Hours (Table) 01/04/17 01/04/17 01/04/17 Range/Units 11:25 15:21 16:31 POC Glucose (mg/dL) 163 H 114 H 132 H (75-99) mg/dL 01/04/17 01/05/17 Range/Units 20:43 06:04 POC Glucose (mg/dL) 142 H 262 H (75-99) mg/dL Microbiology - Last 24 Hours (Table) 01/02/17 00:35 Stool Culture - Preliminary Stool Assessment and Plan Plan: Assessment: #1. End-stage renal disease maintained on hemodialysis on a Thursday schedule via left upper extremity AV graft. #2. GI bleed. Hemoglobin 10.1 on admission. 8.0 yesterday. GI following. Potential endoscopy if signs of active bleeding noted. #3. Chronic kidney disease mineral bone disease. #4. Hypertension with chronic kidney disease. Expect improvement postdialysis. #5. Insulin-dependent diabetes mellitus. #6. Thyroid nodule. She is to follow-up with endocrinology as an outpatient. Plan: Hemodialysis today with goal 2 liters ultrafiltration. Aranesp has been resumed. Coumadin is held. Maintain Renvela with meals. She was also noted to have an elevated PTH related peptide as an outpatient and is to see oncology as outpatient. 5 mg midodrine prior to dialysis. Check iron studies.
[2017-01-05 11:35] VITALS: TEMP 97.9
[2017-01-05 11:36] VITALS: BP 159/68; PULSE 91
[2017-01-05] MEDS: PANTOPRAZOLE 40 MG/10 ML VIAL IV SCH (11:41)
[2017-01-05] MEDS: FUROSEMIDE 80 MG TAB PO SCH (11:42)
[2017-01-05] MEDS: FOLIC ACID-VIT B COMPLEX-VIT C 1 CAP PO SCH (11:42)
[2017-01-05] MEDS: GABAPENTIN 100 MG CAP PO SCH ×2 (11:42→16:19)
[2017-01-05] MEDS: METOPROLOL SUCCINATE (ER) 50 MG TAB.ER.24H PO SCH (11:42)
[2017-01-05] MEDS: amLODIPine 5 MG TAB PO SCH (11:43)
[2017-01-05 11:46] LABS: Glucose,Whole Blood 179 mg/dL (75-99)
[2017-01-05] MEDS ORDERED: SPIRONOLACTONE 25 MG TAB PO SCH (14:15)
[2017-01-05 15:16] LABS: Iron Saturation 16.11 (12.00-45.00)
--- NOTE | 2017-01-05 15:21 | P.PN ---
Subjective Progress Note Date: 01/05/17 Principal diagnosis: GI bleed This is 56-year-old -[place] female with known history of hypertension, end-stage renal disease on hemodialysis, prior myocardial infarction with stent placements, GERD, diabetes, who presented to the hospital with bloody stools. She was seen in consultation by Dr. Roosevelt Nobles, patient had an EGD and colonoscopy done in February 2016. She did not have any further episodes of bleeding in the past 48 hours, hemoglobin 8. Patient will not have any repeat endoscopy procedures this admission. Dr. Nobles's recommendation is that the patient can be discharged home, and hold Coumadin for 3 more days and resume once daily. We will check to see her regarding the use of coumadin and Plavix. We will make a follow-up appointment in the office post discharge. 01/05/2017 Patient was seen and examined this morning, she denies any chest pain no shortness of breath. Last bowel movement was on Thursday which was dark. She denies any abdominal discomfort and is hemodynamically stable. On discharge, we will resume the patient's Plavix, and Coumadin in 3 days. We will schedule a follow-up appointment in the office post discharge. Objective - Vital Signs Vital signs: Vital Signs Temp 97.9 F 01/05/17 08:00 Pulse 91 01/05/17 11:36 Resp 16 01/05/17 11:36 BP 159/68 01/05/17 11:36 Pulse Ox 97 01/05/17 08:00 Intake & Output 01/04/17 01/05/17 01/05/17 18:59 06:59 18:59 Intake Total 840 200 360 Output Total 500 250 Balance 340 -50 360 Weight 71.8 kg Intake: Oral 840 200 360 Output: Urine 500 250 Other: Voiding Method Toilet Toilet Toilet # Voids 0 1 0 # Bowel Movements 0 - Exam PHYSICAL EXAMINATION: HEENT: Head is atraumatic, normocephalic. Pupils equal, round. Neck is supple. There is no elevated jugular venous pressure. HEART EXAMINATION: Heart S1 and S2, systolic murmur is heard. CHEST EXAMINATION: Lungs are clear to auscultation and precussion. No chest wall tenderness is noted on palpation or with deep breathing. ABDOMEN: Soft, nontender. Bowel sounds are heard. No organomegaly noted. EXTREMITIES: 1+ peripheral pulses with no evidence of peripheral edema and no calf tenderness noted. NEUROLOGIC patient is awake, alert and oriented -3. . - Labs CBC & Chem 7: 01/04/17 05:56 01/03/17 05:38 Labs: Abnormal Lab Results - Last 24 Hours (Table) 01/04/17 01/04/17 01/04/17 Range/Units 15:21 16:31 20:43 POC Glucose (mg/dL) 114 H 132 H 142 H (75-99) mg/dL 01/05/17 01/05/17 Range/Units 06:04 11:44 POC Glucose (mg/dL) 262 H 179 H (75-99) mg/dL Microbiology - Last 24 Hours (Table) 01/02/17 00:35 Stool Culture - Final Stool Assessment and Plan Plan: Assessment and plan #1 GI bleed, on aspirin Coumadin and Plavix at home. All currently on hold. 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 Nobles wishes to hold the Coumadin until Thursday, we will send the patient home on Plavix, and resume Coumadin Thursday. Make her a follow-up appointment in the office in one week. DNP note has been reviewed, I agree with a documented findings and plan of care. Patient was seen and examined.
[2017-01-05 16:37] LABS: Glucose,Whole Blood 137 mg/dL (75-99)
--- NOTE | 2017-01-06 00:12 | P.PN ---
Subjective Progress Note Date: 01/04/17 Principal diagnosis: Dark-colored stools Patient is a 56-year-old female with a past medical history of ESRD on hemodialysis MWF via AV graft, hypertension, diabetes type 2 history of coronary disease and recently diagnosed atrial fibrillation and was started on anticoagulation with Coumadin presented to the hospit with complaints of blood in the stool.. Patient states she went to the bathroom yesterday evening around 5 PM and noticed her stool was darker than usual. Subsequently she noticed bright red blood as well. She has history of coronary artery disease status post multiple interventions in the past. Her hemoglobin on admission was stable at 10.1. She hasn't had a bowel movement so far today. Denies chest pain or shortness of breath. No vomiting. Appetite is good. Hemodynamically stable. 01/03/2017 Patient denied any further episodes of blood in the stool. Hemoglobin dropped to 8.5 today. Otherwise patient denied any chest pain or short of breath. Patient was seen by gastrology and recommended to follow with H&H. Otherwise no acute overnight issues. 01/04/2017 Patient denied any bleeding today. Hemoglobin dropped to 8.0. Patient is constipated and class swollen 3 days back. Hemodialysis tomorrow. Possible discharge in next 24 hours. All other review of systems negative except the above Current medications reviewed Objective - Vital Signs Vital signs: Vital Signs Temp 97 F L 01/04/17 20:37 Pulse 69 01/04/17 20:37 Resp 16 01/04/17 20:37 BP 148/64 01/04/17 20:37 Pulse Ox 95 01/04/17 20:37 Intake & Output 01/04/17 01/04/17 01/05/17 06:59 18:59 06:59 Intake Total 840 Output Total 100 500 Balance -100 340 Weight 69.8 kg Intake: Oral 840 Output: Urine 100 500 Other: Voiding Method Toilet Toilet # Voids 0 0 - Exam Patient is lying in the bed comfortably, no acute distress, awake alert and oriented.. HEENT: Normocephalic. Neck is supple. Pupils reactive. Nostrils clear. Oral cavity is moist. Ears reveal no drainage. Neck reveals no JVD, carotid bruits, or thyromegaly. CHEST EXAMINATION: Trachea is central. Symmetrical expansion. Lung perez clear to auscultation and percussion. CARDIAC: Normal S1, S2 with no gallops. No murmurs ABDOMEN: Soft. Bowel sounds normal. No organomegaly. No abdominal bruits. Extremities: reveal no edema. No clubbing or cyanosis Neurologically awake, alert, oriented x3 with well-coordinated movements. No focal deficits noted Skin: No rash or skin lesions. Psychiatric: Cooperative. Nonsuicidal Musculoskeletal: No joint swelling or deformity. Normal range of motion. - Labs CBC & Chem 7: 01/04/17 05:56 01/03/17 05:38 Labs: Abnormal Lab Results - Last 24 Hours (Table) 01/04/17 01/04/17 01/04/17 Range/Units 05:56 05:58 11:25 RBC 2.59 L (3.80-5.40) m/uL Hgb 8.0 L (11.4-16.0) gm/dL Hct 27.6 L (34.0-46.0) % MCV 106.7 H (80.0-100.0) fL MCHC 29.0 L (31.0-37.0) g/dL RDW 21.4 H (11.5-15.5) % POC Glucose (mg/dL) 247 H 163 H (75-99) mg/dL 01/04/17 01/04/17 01/04/17 Range/Units 15:21 16:31 20:43 RBC (3.80-5.40) m/uL Hgb (11.4-16.0) gm/dL Hct (34.0-46.0) % MCV (80.0-100.0) fL MCHC (31.0-37.0) g/dL RDW (11.5-15.5) % POC Glucose (mg/dL) 114 H 132 H 142 H (75-99) mg/dL Microbiology - Last 24 Hours (Table) 01/02/17 00:35 Stool Culture - Preliminary Stool Assessment and Plan Assessment: #1 Dark colored stools due to GI bleed. Hemoglobin 10.1 on admission. Hemoglobin during last discharge was 9.4. #2 paroxysmal atrial fibrillation on anticoagulation with Coumadin INR 2.6 #3 ESRD on hemo-dialysis #3 history of coronary artery disease status post stent placement #5. Anemia of chronic disease on epogen #6 elevated troponin level. Unlikely acute [place] #7 diabetes type 2 uncontrolled with A1c 8.4 #8 hypertension #9 history of GI bleed in November 2015 Plan: Will continue to monitor H&H. Hemoglobin dropped from 10.1- 8.5--8.0 today. Patient had previous colonoscopy and EGD done in November 2015. ECG showed mild duodenitis and colonoscopy showed cecal AV malformation. Continue to hold aspirin and Plavix and anticoagulation. Cardiology and nephrology is following. Patient was seen by GI.. Patient is currently hemodynamically stable. We will continue the current management and further recommendations based on the clinical course. Time with Patient: Greater than 30
--- NOTE | 2017-01-06 00:16 | P.DS ---
Providers Date of admission: 01/02/17 00:32 Expected date of discharge: 01/05/17 Attending physician: Srinivas Black Consults: 01/02/17 00:32 Consult Physician Stat Consulting Provider: Thomas Damon Consult Reason/Comments: end-stage renal disease on dialysis Do you want consulting provider notified?: Yes Consult Physician Stat Consulting Provider: Bola Contreras Consult Reason/Comments: elevated troponin, Do you want consulting provider notified?: Already Contacted 01/02/17 21:53 Consult Physician Routine Consulting Provider: Tati Nobles Consult Reason/Comments: GI Bleed Do you want consulting provider notified?: Yes Primary care physician: Jossie Rubio [facility] Course: Discharge diagnosis #1 Dark colored stools due to GI bleed. Hemoglobin 10.1 on admission. Hemoglobin during last discharge was 9.4. #2 paroxysmal atrial fibrillation on anticoagulation with Coumadin INR 2.6 #3 ESRD on hemo-dialysis #3 history of coronary artery disease status post stent placement #5. Anemia of chronic disease on epogen #6 elevated troponin level. Unlikely acute [place] #7 diabetes type 2 uncontrolled with A1c 8.4 #8 hypertension #9 history of GI bleed in November 2015 Hospital course Patient is a 56-year-old female with a past medical history of ESRD on hemodialysis MWF via AV graft, hypertension, diabetes type 2 history of coronary disease and recently diagnosed atrial fibrillation and was started on anticoagulation with Coumadin presented to the hospit with complaints of blood in the stool.. Patient states she went to the bathroom yesterday evening around 5 PM and noticed her stool was darker than usual. Subsequently she noticed bright red blood as well. She has history of coronary artery disease status post multiple interventions in the past. Her hemoglobin on admission was stable at 10.1. She hasn't had a bowel movement so far today. Denies chest pain or shortness of breath. No vomiting. Appetite is good. Hemodynamically stable. 01/03/2017 Patient denied any further episodes of blood in the stool. Hemoglobin dropped to 8.5 today. Otherwise patient denied any chest pain or short of breath. Patient was seen by gastrology and recommended to follow with H&H. Otherwise no acute overnight issues. 01/04/2017 Patient denied any bleeding today. Hemoglobin dropped to 8.0. Patient is constipated and class swollen 3 days back. Hemodialysis tomorrow. Possible discharge in next 24 hours. Monitor H&H closely. Hemoglobin dropped from 10.1- 8.5--8.0. Patient had previous colonoscopy and EGD done in November 2015. ECG showed mild duodenitis and colonoscopy showed cecal AV malformation. Continue to hold aspirin and Plavix and anticoagulation. Patient did have bowel movement this morning and denied any dark-colored stools or bright red blood. Patient advised to hold aspirin and Plavix and Coumadin next 4-5 days and started back after that. And also advised to come to the hospital if she notices any further bleeding or dark tarry stools a complaints of dizziness or lightheadedness. Patient was recommended to follow with GI clinic. Otherwise patient is stable to be discharged home. Patient had hemodialysis done today. Continue with epogen with dialysis. Patient was seen by nephrology and cardiology and GI during this admission. Discharge physical examination was done. Patient Condition at Discharge: Serious Plan - Discharge Summary Discharge Rx Participant: Yes New Discharge Prescriptions: New Midodrine [ProAmatine] 5 mg PO MoWeFr@0900 tab Spironolactone [Aldactone] 25 mg PO DAILY #30 tab Continue Furosemide [Lasix] 80 mg PO BID Albuterol Inhaler [Ventolin Hfa Inhaler] 1 puff INHALATION RT-BID PRN PRN Reason: Shortness Of Breath Clopidogrel [Plavix] 75 mg PO DAILY tab Atorvastatin [Lipitor] 40 mg PO HS Insulin Aspart [NovoLOG Flexpen] See Protocol SQ AC-TID ALPRAZolam [Xanax] 0.25 mg PO HS PRN PRN Reason: Insomnia Sevelamer [Renvela] 2,400 mg PO AC-TID amLODIPine [Norvasc] 5 mg PO DAILY Nitroglycerin Sl Tabs [Nitrostat] 0.4 mg SUBLINGUAL Q5M PRN PRN Reason: Chest Pain Folic Acid-Vit B Complex-Vit C [Nephrocaps] 1 cap PO DAILY Aspirin EC [Ecotrin Low Dose] 81 mg PO DAILY Temazepam [Restoril] 15 mg PO HS PRN #15 cap PRN Reason: Insomnia Metoprolol Succinate (ER) [Toprol XL] 50 mg PO DAILY Darbepoetin Doroteo [Aranesp] 40 mcg SQ Q7D syr Insulin Glargine,Hum.rec.anlog [Lantus Solostar] 38 unit SQ HS Warfarin [Coumadin] 5 mg PO HS@1800 Gabapentin [Neurontin] 100 mg PO TID Discharge Medication List Furosemide [Lasix] 80 mg PO BID 09/17/13 [History] Albuterol Inhaler [Ventolin Hfa Inhaler] 1 puff INHALATION RT-BID PRN 02/12/16 [ History] Clopidogrel [Plavix] 75 mg PO DAILY tab 02/16/16 [Rx] Atorvastatin [Lipitor] 40 mg PO HS 07/16/16 [History] Insulin Aspart [NovoLOG Flexpen] See Protocol SQ AC-TID 07/16/16 [History] ALPRAZolam [Xanax] 0.25 mg PO HS PRN 07/29/16 [History] Aspirin EC [Ecotrin Low Dose] 81 mg PO DAILY 10/30/16 [History] Folic Acid-Vit B Complex-Vit C [Nephrocaps] 1 cap PO DAILY 10/30/16 [History] Nitroglycerin Sl Tabs [Nitrostat] 0.4 mg SUBLINGUAL Q5M PRN 10/30/16 [History] Sevelamer [Renvela] 2,400 mg PO AC-TID 10/30/16 [History] amLODIPine [Norvasc] 5 mg PO DAILY 10/30/16 [History] Temazepam [Restoril] 15 mg PO HS PRN #15 cap 11/01/16 [Rx] Metoprolol Succinate (ER) [Toprol XL] 50 mg PO DAILY 11/26/16 [History] Darbepoetin Doroteo [Aranesp] 40 mcg SQ Q7D syr 12/01/16 [Rx] Insulin Glargine,Hum.rec.anlog [Lantus Solostar] 38 unit SQ HS 01/01/17 [History ] Warfarin [Coumadin] 5 mg PO HS@1800 01/01/17 [History] Gabapentin [Neurontin] 100 mg PO TID 01/02/17 [History] Midodrine [ProAmatine] 5 mg PO MoWeFr@0900 tab 01/05/17 [Rx] Spironolactone [Aldactone] 25 mg PO DAILY #30 tab 01/05/17 [Rx] Follow up Appointment(s)/Referral(s): Ramiro Sethi MD [Primary Care Provider] - 01/08/17 2:10 pm Claudia Vega MD [STAFF PHYSICIAN] - 01/15/17 1:30 pm (With Dr Brown) Patient Instructions/Handouts: Gastrointestinal Bleeding (DC) Activity/Diet/Wound Care/Special Instructions: Resume Plavix now . Resume Coumadin in 3 days. Discharge Disposition: HOME SELF-CARE
[2017-01-07] MEDS ORDERED: MIDODRINE 5 MG TAB PO SCH (09:00)
== END 2017-01-05 17:27 | disposition home or self-care (01) | DRG 377 ==
LOC: EC 21:40 → 6SEL 01-02 00:32
PROVIDERS: ADMIT Internal Medicine; ATTEND Internal Medicine
PROC: 5A1D70Z Performance of Urinary Filtration, Intermittent, Less than 6 Hours Per Day (ICD-10-PCS; principal; 2017-01-04)
DX: K92.1 Melena (principal); N18.6 End stage renal disease; E87.2 Acidosis; I50.32 Chronic diastolic (congestive) heart failure; I48.0 Paroxysmal atrial fibrillation; E11.22 Type 2 diabetes mellitus with diabetic chronic kidney disease; E11.65 Type 2 diabetes mellitus with hyperglycemia; K59.00 Constipation, unspecified; I25.10 Atherosclerotic heart disease of native coronary artery without angina pectoris; D63.8 Anemia in other chronic diseases classified elsewhere; H91.90 Unspecified hearing loss, unspecified ear; E78.5 Hyperlipidemia, unspecified; M19.90 Unspecified osteoarthritis, unspecified site; I34.0 Nonrheumatic mitral (valve) insufficiency; I12.9 Hypertensive chronic kidney disease with stage 1 through stage 4 chronic kidney disease, or unspecified chronic kidney disease; K21.9 Gastro-esophageal reflux disease without esophagitis; E11.319 Type 2 diabetes mellitus with unspecified diabetic retinopathy without macular edema; E11.51 Type 2 diabetes mellitus with diabetic peripheral angiopathy without gangrene; E04.1 Nontoxic single thyroid nodule; R01.1 Cardiac murmur, unspecified; Z88.8 Allergy status to other drugs, medicaments and biological substances; Z88.6 Allergy status to analgesic agent; Z91.041 Radiographic dye allergy status; Z95.5 Presence of coronary angioplasty implant and graft; Z99.2 Dependence on renal dialysis; Z88.0 Allergy status to penicillin; Z91.013 Allergy to seafood; Z79.01 Long term (current) use of anticoagulants; Z79.899 Other long term (current) drug therapy; Z79.4 Long term (current) use of insulin; Z79.02 Long term (current) use of antithrombotics/antiplatelets; Z79.82 Long term (current) use of aspirin; Z83.3 Family history of diabetes mellitus; Z87.891 Personal history of nicotine dependence; Z86.73 Personal history of transient ischemic attack (TIA), and cerebral infarction without residual deficits; Z90.710 Acquired absence of both cervix and uterus; Z90.49 Acquired absence of other specified parts of digestive tract; Z98.41 Cataract extraction status, right eye; Z87.01 Personal history of pneumonia (recurrent); I25.2 Old myocardial infarction; Z98.42 Cataract extraction status, left eye
CPT/HCPCS: 36415; 80048; 80053; 82272; 82550; 82553; 82728; 83036; 83540; 83550; 84100; 84484; 85025; 85610; 85730; 86850; 86870; 86880; 86900; 86901; 86902; 87045; 87046; 87324; 90935; 93005; 94640; 96361; 96374; 99285

== ENCOUNTER 2017-01-07 03:58 | Emergency (ER) | payer MEDICARE, BC ==
[2017-01-07 04:12] VITALS: TEMP 97.3
[2017-01-07] MEDS ORDERED: NITROGLYCERIN OINT 1 INCH/GM PACKET TOPICAL STA (04:19)
[2017-01-07] MEDS ORDERED: IPRATROPIUM-ALBUTEROL 3 ML NEB INHALATION STA (04:19)
[2017-01-07] MEDS ORDERED: FUROSEMIDE 10 MG/ML 4 ML VIAL IV STA (04:19)
--- NOTE | 2017-01-07 04:22 | ED ---
SOB HPI - General Chief Complaint: Shortness of Breath Stated Complaint: Fluid overload/KATT Time Seen by Provider: 01/07/17 04:14 Source: patient, RN notes reviewed Mode of arrival: ambulatory Limitations: no limitations - History of Present Illness Initial Comments: This is a 56-year-old female history kidney failure who gets dialysis on Thursday to Thursday who presents with complaints of shortness of breath which started this morning. She states she has exertional dyspnea along with that she feels like she is getting fluid overloaded. She does state that she had dialysis 2 days ago and does believe the dialysis was a normal amount. Additionally she was recently taken off Coumadin he comes of a GI bleed she states she took some this morning she's had a episode of bleeding to her tongue for several hours now she believes she bit it. She has no other complaints such as fevers chills or sweats at this time no chest pain. MD Complaint: shortness of breath - Related Data Home Medications Medication Instructions Recorded Confirmed Furosemide [Lasix] 80 mg PO BID 09/17/13 01/01/17 Albuterol Inhaler [Ventolin Hfa 1 puff INHALATION RT-BID PRN 02/12/16 01/01/17 Inhaler] Atorvastatin [Lipitor] 40 mg PO HS 07/16/16 01/01/17 Insulin Aspart [NovoLOG Flexpen] See Protocol SQ AC-TID 07/16/16 01/01/17 ALPRAZolam [Xanax] 0.25 mg PO HS PRN 07/29/16 01/01/17 Aspirin EC [Ecotrin Low Dose] 81 mg PO DAILY 10/30/16 01/01/17 Folic Acid-Vit B Complex-Vit C 1 cap PO DAILY 10/30/16 01/01/17 [Nephrocaps] Nitroglycerin Sl Tabs [Nitrostat] 0.4 mg SUBLINGUAL Q5M PRN 10/30/16 01/01/17 Sevelamer [Renvela] 2,400 mg PO AC-TID 10/30/16 01/01/17 amLODIPine [Norvasc] 5 mg PO DAILY 10/30/16 01/01/17 Metoprolol Succinate (ER) [Toprol 50 mg PO DAILY 11/26/16 01/01/17 XL] Insulin Glargine,Hum.rec.anlog 38 unit SQ HS 01/01/17 01/01/17 [Lantus Solostar] Warfarin [Coumadin] 5 mg PO HS@1800 01/01/17 01/01/17 Gabapentin [Neurontin] 100 mg PO TID 01/02/17 01/02/17 Previous Rx's Medication Instructions Recorded Clopidogrel [Plavix] 75 mg PO DAILY tab 02/16/16 Temazepam [Restoril] 15 mg PO HS PRN #15 cap 11/01/16 Darbepoetin Doroteo [Aranesp] 40 mcg SQ Q7D syr 12/01/16 Midodrine [ProAmatine] 5 mg PO MoWeFr@0900 tab 01/05/17 Spironolactone [Aldactone] 25 mg PO DAILY #30 tab 01/05/17 Allergies Allergy/AdvReac Type Severity Reaction Status Date / Time clonidine Allergy Anaphylaxis Verified 01/07/17 04:12 Iodinated Contrast- Oral and Allergy Anaphylaxis Verified 01/07/17 04:12 IV Dye iodine Allergy Anaphylaxis Verified 01/07/17 04:12 Penicillins Allergy Rash/Hives Verified 01/07/17 04:12 shellfish derived Allergy Anaphylaxis Verified 01/07/17 04:12 Review of Systems ROS Statement: Those systems with pertinent positive or pertinent negative responses have been documented in the HPI. ROS Other: All systems not noted in ROS Statement are negative. Past Medical History Past Medical History: Atrial Fibrillation, Coronary Artery Disease (CAD), Heart Failure, CVA/TIA, Diabetes Mellitus, GERD/Reflux, GI Bleed, Hyperlipidemia, Osteoarthritis (OA), Pneumonia, Renal Disease, Vascular Disorder Additional Past Medical History / Comment(s): Coronary artery disease, preserved LV function with an ejection fraction of 55% and moderate degree of MR , IDDM type II, End stage renal failure with hemodialysis MWF-on kidney transplant list thru [facility], CVA 2007 with some peripheral vision problems R eye and R ear [place], lower GI bleed, PAD, DJD, diverticulosis, pancreatitis, bronchitis, TMJ, sinus problems at times, UTIs, benign polypectomies, anemia. History of Any Multi-Drug Resistant Organisms: None Reported Past Surgical History: Cholecystectomy, Heart Catheterization, Heart Catheterization With Stent, Hysterectomy Additional Past Surgical History / Comment(s): L upper arm for dialysis cath, 3 Cardiac stents, one stent rt leg, EGD/colonoscopies/benign polypectomies , bilateral cataract removal, laser sx bilateral eyes for retinopathy, D&C, left axillary I&D Past Anesthesia/Blood Transfusion Reactions: Motion Sickness, Postoperative Nausea & Vomiting (PONV) Additional Past Anesthesia/Blood Transfusion Reaction / Comment(s): Pt has received blood in the past without reaction. Date of Last Stent Placement:: 09/22/13 Past Psychological History: No Psychological Hx Reported Smoking Status: Former smoker Past Alcohol Use History: Occasional Past Drug Use History: None Reported - Past Family History Mother Family Medical History: No Reported History Additional Family Medical History / Comment(s): Mother is 76 yrs old. Father Family Medical History: Diabetes Mellitus Additional Family Medical History / Comment(s): Father at the age of 42yrs- pt does not know reason. General Exam - General Exam Comments Initial Comments: This is a well-developed well-nourished awake alert oriented 3 female Limitations: no limitations General appearance: alert, anxious, in distress Head exam: Present: atraumatic, normocephalic, normal inspection Eye exam: Present: normal appearance, PERRL, EOMI. Absent: scleral icterus, conjunctival injection, periorbital swelling ENT exam: Present: other (Examination oropharynx reveals slight amount of bleeding from the head tip of the tongue consistent with a bite injury.) Neck exam: Present: normal inspection. Absent: tenderness, meningismus, lymphadenopathy Respiratory exam: Present: decreased breath sounds Cardiovascular Exam: Present: regular rate, normal rhythm, normal heart sounds. Absent: systolic murmur, diastolic murmur, rubs, gallop, clicks GI/Abdominal exam: Present: soft, normal bowel sounds. Absent: distended, tenderness, guarding, rebound, rigid Extremities exam: Present: normal inspection, full ROM, normal capillary refill , pedal edema (Trace edema). Absent: tenderness, joint swelling, calf tenderness Back exam: Present: normal inspection Neurological exam: Present: alert, oriented X3, CN II-XII intact Psychiatric exam: Present: normal affect, normal mood Skin exam: Present: warm, dry, intact, normal color. Absent: rash Course Vital Signs 01/07/17 01/07/17 01/07/17 04:00 04:40 04:50 Temperature 97.3 F L Pulse Rate 77 92 92 Respiratory 20 Rate Blood Pressure 156/70 O2 Sat by Pulse 96 Oximetry 01/07/17 06:34 Temperature Pulse Rate 97 Respiratory 18 Rate Blood Pressure 210/84 O2 Sat by Pulse 98 Oximetry Medical Decision Making - Medical Decision Making Attempts are made to get IV and lab access which failed. 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 She is in agreement with this. She did get some relief from her nebulizer treatment. - EKG Data -: EKG Interpreted by Me EKG shows normal: sinus rhythm (Sinus rhythm a rate of 94. 1:30 QRS 84 QT since QTC of 392/[address] configuration.) - Radiology Data Radiology results: report reviewed (I did review the imaging there appears be no acute findings decrease in bilateral interstitial thickening compared to previous x-ray.), image reviewed Disposition Clinical Impression: Chronic renal failure syndrome, Bronchospasm Disposition: HOME SELF-CARE Condition: Good Additional Instructions: Go directly to dialysis for your appointment Referrals: Ramiro Sethi MD [Primary Care Provider] - 1-2 days
--- NOTE | 2017-01-07 05:56 | XR ---
EXAM: XR Chest, 2 Views CLINICAL HISTORY: Reason: difficulty breathing TECHNIQUE: Frontal and lateral views of the chest. COMPARISON: Chest x-ray 11/29/16 FINDINGS: Lungs: Interval decreased in bilateral interstitial prominence, with likely mild residual interstitial edema. No new consolidation. Pleural space: No pleural effusion or pneumothorax. Heart: Heart size is stable. Mediastinum: Unremarkable. Bones/joints: No acute findings. Vasculature: Atherosclerotic calcifications of the aortic arch. Left axillary vascular stent again noted. IMPRESSION: Decreased bilateral interstitial thickening with likely mild residual interstitial edema versus atypical pneumonia. No new consolidation.
[2017-01-07 07:00] LABS: Calcium 9.5 mg/dL (8.4-10.2); Magnesium 3.1 mg/dL (1.6-2.3); Total Bilirubin 0.3 mg/dL (0.2-1.3); Total Protein 7.2 g/dL (6.3-8.2)
[2017-01-07 07:09] VITALS: BP 190/87; PULSE 90; RESP 22
== END 2017-01-07 07:08 | disposition home or self-care (01) ==
LOC: EC 03:58
DX: E11.22 Type 2 diabetes mellitus with diabetic chronic kidney disease (principal); N18.6 End stage renal disease; J98.01 Acute bronchospasm; I48.91 Unspecified atrial fibrillation; I25.10 Atherosclerotic heart disease of native coronary artery without angina pectoris; I50.9 Heart failure, unspecified; M19.90 Unspecified osteoarthritis, unspecified site; E78.5 Hyperlipidemia, unspecified; Z87.891 Personal history of nicotine dependence; Z86.73 Personal history of transient ischemic attack (TIA), and cerebral infarction without residual deficits; Z95.5 Presence of coronary angioplasty implant and graft; Z99.2 Dependence on renal dialysis; Z91.041 Radiographic dye allergy status; Z91.048 Other nonmedicinal substance allergy status; Z88.8 Allergy status to other drugs, medicaments and biological substances; Z91.013 Allergy to seafood; Z79.4 Long term (current) use of insulin; Z79.82 Long term (current) use of aspirin; Z79.01 Long term (current) use of anticoagulants; Z79.899 Other long term (current) drug therapy
CPT/HCPCS: 36415; 94640; 93005; 80053; 83735; 71020; 99285; 96374; J1940

== ENCOUNTER 2017-01-15 13:58 | Inpatient (IN) | payer MEDICARE, BC ==
[2017-01-15] MEDS ORDERED: ACETAMINOPHEN TAB 500 MG TAB PO STA (14:07)
[2017-01-15] MEDS ORDERED: IBUPROFEN 600 MG TAB PO STA (14:07)
[2017-01-15] MEDS ORDERED: SODIUM CHLORIDE 0.9% 1,000 ML IV STA (14:07)
[2017-01-15] MEDS ORDERED: SODIUM CHLORIDE 0.9% 500 ML IV STA (14:07)
--- NOTE | 2017-01-15 15:09 | ED ---
General Adult HPI - General Chief complaint: Neuro Symptoms/Deficit Stated complaint: weakness/slurred speech/confusion Time Seen by Provider: 01/15/17 14:07 Source: patient, RN notes reviewed, old records reviewed Mode of arrival: wheelchair Limitations: no limitations - History of Present Illness Initial comments: This is a 49-year-old female the ER for evaluation. Patient is a for evaluation regarding altered mental state. Patient has history of dialysis. Patient had dialysis last night and per staff as well as steroids patient was confused last night at dialysis. Patient awoke with seen confusion today. Patient's history of dialysis. Patient also noted a fever. Patient was noted to have fever last night. Patient herself otherwise denies complaints, denies any chest patient was of breath runny nose nausea vomiting or diarrhea. - Related Data Home Medications Medication Instructions Recorded Confirmed Furosemide [Lasix] 80 mg PO BID 09/17/13 01/15/17 Albuterol Inhaler [Ventolin Hfa 1 puff INHALATION RT-BID PRN 02/12/16 01/15/17 Inhaler] Atorvastatin [Lipitor] 40 mg PO HS 07/16/16 01/15/17 Insulin Aspart [NovoLOG Flexpen] See Protocol SQ AC-TID 07/16/16 01/15/17 ALPRAZolam [Xanax] 0.25 mg PO HS PRN 07/29/16 01/15/17 Aspirin EC [Ecotrin Low Dose] 81 mg PO DAILY 10/30/16 01/15/17 Folic Acid-Vit B Complex-Vit C 1 cap PO DAILY 10/30/16 01/15/17 [Nephrocaps] Nitroglycerin Sl Tabs [Nitrostat] 0.4 mg SUBLINGUAL Q5M PRN 10/30/16 01/15/17 Sevelamer [Renvela] 2,400 mg PO AC-TID 10/30/16 01/15/17 amLODIPine [Norvasc] 5 mg PO DAILY 10/30/16 01/15/17 Metoprolol Succinate (ER) [Toprol 50 mg PO DAILY 11/26/16 01/15/17 XL] Insulin Glargine,Hum.rec.anlog 38 unit SQ HS 01/01/17 01/15/17 [Lantus Solostar] Warfarin [Coumadin] 5 mg PO HS@1800 01/01/17 01/15/17 Gabapentin [Neurontin] 100 mg PO TID 01/02/17 01/15/17 Previous Rx's Medication Instructions Recorded Clopidogrel [Plavix] 75 mg PO DAILY tab 02/16/16 Temazepam [Restoril] 15 mg PO HS PRN #15 cap 11/01/16 Darbepoetin Doroteo [Aranesp] 40 mcg SQ Q7D syr 12/01/16 Midodrine [ProAmatine] 5 mg PO MoWeFr@0900 tab 01/05/17 Spironolactone [Aldactone] 25 mg PO DAILY #30 tab 01/05/17 Allergies Allergy/AdvReac Type Severity Reaction Status Date / Time clonidine Allergy Anaphylaxis Verified 01/15/17 16:14 Iodinated Contrast- Oral and Allergy Anaphylaxis Verified 01/15/17 16:14 IV Dye iodine Allergy Anaphylaxis Verified 01/15/17 16:14 Penicillins Allergy Rash/Hives Verified 01/15/17 16:14 shellfish derived Allergy Anaphylaxis Verified 01/15/17 16:14 Review of Systems ROS Statement: Those systems with pertinent positive or pertinent negative responses have been documented in the HPI. ROS Other: All systems not noted in ROS Statement are negative. Past Medical History Past Medical History: Atrial Fibrillation, Coronary Artery Disease (CAD), Heart Failure, CVA/TIA, Diabetes Mellitus, GERD/Reflux, GI Bleed, Hyperlipidemia, Osteoarthritis (OA), Pneumonia, Renal Disease, Vascular Disorder Additional Past Medical History / Comment(s): Coronary artery disease, preserved LV function with an ejection fraction of 55% and moderate degree of MR , IDDM type II, End stage renal failure with hemodialysis MWF-on kidney transplant list thru [facility], CVA 2007 with some peripheral vision problems R eye and R ear [place], lower GI bleed, PAD, DJD, diverticulosis, pancreatitis, bronchitis, TMJ, sinus problems at times, UTIs, benign polypectomies, anemia. History of Any Multi-Drug Resistant Organisms: None Reported Past Surgical History: Cholecystectomy, Heart Catheterization, Heart Catheterization With Stent, Hysterectomy Additional Past Surgical History / Comment(s): L upper arm for dialysis cath, 3 Cardiac stents, one stent rt leg, EGD/colonoscopies/benign polypectomies , bilateral cataract removal, laser sx bilateral eyes for retinopathy, D&C, left axillary I&D Past Anesthesia/Blood Transfusion Reactions: Motion Sickness, Postoperative Nausea & Vomiting (PONV) Additional Past Anesthesia/Blood Transfusion Reaction / Comment(s): Pt has received blood in the past without reaction. Date of Last Stent Placement:: 09/22/13 Past Psychological History: No Psychological Hx Reported Smoking Status: Former smoker Past Alcohol Use History: Occasional Past Drug Use History: None Reported - Past Family History Mother Family Medical History: No Reported History Additional Family Medical History / Comment(s): Mother is 76 yrs old. Father Family Medical History: Diabetes Mellitus Additional Family Medical History / Comment(s): Father at the age of 42yrs- pt does not know reason. General Exam Limitations: no limitations General appearance: alert, in no apparent distress Head exam: Present: atraumatic, normocephalic, normal inspection Eye exam: Present: normal appearance, PERRL, EOMI. Absent: scleral icterus, conjunctival injection, periorbital swelling ENT exam: Present: normal exam, mucous membranes moist Neck exam: Present: normal inspection. Absent: tenderness, meningismus, lymphadenopathy Respiratory exam: Present: normal lung sounds bilaterally. Absent: respiratory distress, wheezes, rales, rhonchi, stridor Cardiovascular Exam: Present: regular rate, normal rhythm, normal heart sounds. Absent: systolic murmur, diastolic murmur, rubs, gallop, clicks GI/Abdominal exam: Present: soft, normal bowel sounds. Absent: distended, tenderness, guarding, rebound, rigid Extremities exam: Present: normal inspection, full ROM, normal capillary refill. Absent: tenderness, pedal edema, joint swelling, calf tenderness Back exam: Present: normal inspection Neurological exam: Present: alert, oriented X3, CN II-XII intact Psychiatric exam: Present: normal affect, normal mood Skin exam: Present: warm, dry, intact, normal color. Absent: rash Course Vital Signs 01/15/17 01/15/17 01/15/17 14:02 15:32 15:48 Temperature 101.2 F H Pulse Rate 84 92 Respiratory 18 17 18 Rate Blood Pressure 152/65 167/73 173/72 O2 Sat by Pulse 90 L 98 Oximetry 01/15/17 01/15/17 16:02 17:07 Temperature 102.1 F H Pulse Rate 98 85 Respiratory 18 18 Rate Blood Pressure 156/55 142/63 O2 Sat by Pulse 96 96 Oximetry - Reevaluation(s) Reevaluation #1: 01/15/17 16:26 Patient significant a difficult IV start, after multiple attempts were able to secure IV EKG Findings - EKG Comments: EKG Findings:: EKG shows normal sinus rhythm rate of 100, WI 1:30, QRS 86, QTC 518 Medical Decision Making - Medical Decision Making 57 female to ER for evaluation. Patient has had fever with altered mental status when she woke up this morning and has persisted throughout the day. No neurological deficit noted on exam. At this point testing is normal. No source of fever is found. Patient will be admitted for further evaluation patient be admitted for continued management - Lab Data Result diagrams: 01/24/17 08:15 01/24/17 08:15 Lab Results 01/15/17 01/15/17 01/15/17 Range/Units 15:50 16:11 16:11 WBC 6.9 (3.8-10.6) k/uL RBC 2.52 L (3.80-5.40) m/uL Hgb 7.9 L (11.4-16.0) gm/dL Hct 25.1 L (34.0-46.0) % MCV 99.7 (80.0-100.0) fL MCH 31.3 (25.0-35.0) pg MCHC 31.4 (31.0-37.0) g/dL RDW 20.2 H (11.5-15.5) % Plt Count 229 (150-450) k/uL Neutrophils % 88 % Lymphocytes % 7 % Monocytes % 3 % Eosinophils % 1 % Basophils % 0 % Neutrophils # 6.1 (1.3-7.7) k/uL Lymphocytes # 0.5 L (1.0-4.8) k/uL Monocytes # 0.2 (0-1.0) k/uL Eosinophils # 0.0 (0-0.7) k/uL Basophils # 0.0 (0-0.2) k/uL Hypochromasia Moderate Anisocytosis Moderate Macrocytosis Moderate PT 10.1 (9.0-12.0) sec INR 1.0 (<1.2) APTT 23.0 (22.0-30.0) sec Sodium (137-145) mmol/L Potassium (3.5-5.1) mmol/L Chloride (98-107) mmol/L Carbon Dioxide (22-30) mmol/L Anion Gap mmol/L BUN (7-17) mg/dL Creatinine (0.52-1.04) mg/dL Est GFR (MDRD) Af Amer (>60 ml/min/1.73 sqM) Est GFR (MDRD) Non-Af (>60 ml/min/1.73 sqM) Glucose (74-99) mg/dL Plasma Lactic Acid Tomas (0.7-2.0) mmol/L Calcium (8.4-10.2) mg/dL Phosphorus (2.5-4.5) mg/dL Magnesium (1.6-2.3) mg/dL Total Bilirubin (0.2-1.3) mg/dL AST (14-36) U/L ALT (9-52) U/L Alkaline Phosphatase (38-126) U/L Total Creatine Kinase (30-135) U/L CK-MB (CK-2) (0.0-2.4) ng/mL CK-MB (CK-2) Rel Index Troponin I (0.000-0.034) ng/mL Total Protein (6.3-8.2) g/dL Albumin (3.5-5.0) g/dL Influenza Type A RNA Not Detected (Not Detectd) Influenza Type B (PCR) Not Detected (Not Detectd) 01/15/17 01/15/17 01/15/17 Range/Units 16:11 16:11 16:11 WBC (3.8-10.6) k/uL RBC (3.80-5.40) m/uL Hgb (11.4-16.0) gm/dL Hct (34.0-46.0) % MCV (80.0-100.0) fL MCH (25.0-35.0) pg MCHC (31.0-37.0) g/dL RDW (11.5-15.5) % Plt Count (150-450) k/uL Neutrophils % % Lymphocytes % % Monocytes % % Eosinophils % % Basophils % % Neutrophils # (1.3-7.7) k/uL Lymphocytes # (1.0-4.8) k/uL Monocytes # (0-1.0) k/uL Eosinophils # (0-0.7) k/uL Basophils # (0-0.2) k/uL Hypochromasia Anisocytosis Macrocytosis PT (9.0-12.0) sec INR (<1.2) APTT (22.0-30.0) sec Sodium 138 (137-145) mmol/L Potassium 4.1 (3.5-5.1) mmol/L Chloride 97 L (98-107) mmol/L Carbon Dioxide 26 (22-30) mmol/L Anion Gap 15 mmol/L BUN 52 H (7-17) mg/dL Creatinine 9.40 H* (0.52-1.04) mg/dL Est GFR (MDRD) Af Amer 5 (>60 ml/min/1.73 sqM) Est GFR (MDRD) Non-Af 4 (>60 ml/min/1.73 sqM) Glucose 166 H (74-99) mg/dL Plasma Lactic Acid Tomas 1.5 (0.7-2.0) mmol/L Calcium 8.7 (8.4-10.2) mg/dL Phosphorus 4.3 (2.5-4.5) mg/dL Magnesium 2.4 H (1.6-2.3) mg/dL Total Bilirubin 0.5 (0.2-1.3) mg/dL AST 42 H (14-36) U/L ALT 37 (9-52) U/L Alkaline Phosphatase 98 (38-126) U/L Total Creatine Kinase 76 (30-135) U/L CK-MB (CK-2) 0.8 (0.0-2.4) ng/mL CK-MB (CK-2) Rel Index 1.1 Troponin I 0.178 H* (0.000-0.034) ng/mL Total Protein 6.5 (6.3-8.2) g/dL Albumin 3.7 (3.5-5.0) g/dL Influenza Type A RNA (Not Detectd) Influenza Type B (PCR) (Not Detectd) - Radiology Data Radiology results: report reviewed (Chest x-rays negative for acute disease), image reviewed Disposition Clinical Impression: Fever, Altered mental status Narrative: ro Bacteremia Disposition: ADMITTED IP TO THIS HOSP Condition: Fair
--- NOTE | 2017-01-15 15:33 | CT ---
EXAMINATION TYPE: CT brain wo con DATE OF EXAM: 01/15/2017 COMPARISON: CT brain 03/12/2016 HISTORY: Patient poor historian. Patient displays weakness and cough. CT DLP: 766.9 mGycm Automated exposure control for dose reduction was used. Helical imaging through the brain FINDINGS: There is no hemorrhage or hydrocephalus. White matter demyelination is again seen, area of septal mal acia in the left occipital lobe is stable. The calvarium is intact. Paranasal sinuses and mastoid air cells as visualized are normal. IMPRESSION: STABLE EXAM, NO ACUTE ABNORMALITY.
--- NOTE | 2017-01-15 15:35 | XR ---
EXAMINATION TYPE: XR chest 2V DATE OF EXAM: 01/15/2017 COMPARISON: Prior chest x-ray 01/14/2017 HISTORY: Weakness, altered mental status TECHNIQUE: Frontal and lateral views of the chest are obtained. FINDINGS: Patient is rotated. Heart is enlarged. Interstitium is increased. Stents are present in th e left axilla. No pneumothorax or pleural effusion. IMPRESSION: Correlate for volume overload, pulmonary venous hypertension and interstitial edema.
[2017-01-15 16:24] LABS: Anisocytosis Moderate; Basophils % (A) 0 %; CH 30.3; CHCM 30.5; Eosinophils % (A) 1 %; HCT 25.1 % (34.0-46.0); HDW 2.72; HGB 7.9 gm/dL (11.4-16.0); Hypochromasia Moderate; Luc # (Auto) 0.07; Luc % (Auto) 1; Lymphocytes # (A) 0.5 k/uL (1.0-4.8); Lymphocytes % (A) 7 %; MCH 31.3 pg (25.0-35.0); MCHC 31.4 g/dL (31.0-37.0); MCV 99.7 fL (80.0-100.0); Macrocytosis Moderate; Mean Platelet Volume 8.6; Monocytes # (A) 0.2 k/uL (0-1.0); Monocytes % (A) 3 %; Neutrophils # (A) 6.1 k/uL (1.3-7.7); Neutrophils % (A) 88 %; RBC 2.52 m/uL (3.80-5.40); RDW 20.2 % (11.5-15.5); WBC 6.9 k/uL (3.8-10.6); WBC (Perox) 7.26
[2017-01-15 16:32] LABS: Calcium 8.7 mg/dL (8.4-10.2); Magnesium 2.4 mg/dL (1.6-2.3); Phosphorus 4.3 mg/dL (2.5-4.5); Potassium 4.1 mmol/L (3.5-5.1); Total Bilirubin 0.5 mg/dL (0.2-1.3); Total Protein 6.5 g/dL (6.3-8.2)
[2017-01-15 16:36] LABS: Prothrombin Time 10.1 sec (9.0-12.0)
[2017-01-15] MEDS ORDERED: SODIUM CHLORIDE 0.9% 1,000 ML IV ONE (16:56)
[2017-01-15] MEDS ORDERED: VANCOMYCIN IV PER PHARMACY 1 EACH MISC MISCELLANE PRN (16:56)
[2017-01-15 17:03] LABS: Creatine Kinase MB 0.8 ng/mL (0.0-2.4)
[2017-01-15 17:06] LABS: Troponin I 0.178 ng/mL (0.000-0.034)
[2017-01-15] MEDS ORDERED: VANCOMYCIN 1,250 MG in SODIUM CHLORIDE 0.9% 250 ML IVPB STA (17:17)
[2017-01-15 17:52] LABS: Glucose,Whole Blood 146 mg/dL (75-99)
[2017-01-15 20:57] LABS: Glucose,Whole Blood 273 mg/dL (75-99)
[2017-01-15] MEDS ORDERED: INSULIN GLARGINE 100 UNIT/ML 10 ML VIAL SQ SCH (21:45)
[2017-01-16] MEDS ORDERED: FUROSEMIDE 10 MG/ML 4 ML VIAL IV STA (00:48)
[2017-01-16] MEDS: WARFARIN 5 MG TAB PO SCH ×2 (01:04→19:53)
[2017-01-16 07:22] LABS: Glucose,Whole Blood 409 mg/dL (75-99)
[2017-01-16 08:47] LABS: Calcium 8.1 mg/dL (8.4-10.2); Potassium 4.2 mmol/L (3.5-5.1)
[2017-01-16] MEDS ORDERED: ENOXAPARIN 40 MG/0.4 ML SYRINGE SQ SCH (09:00)
[2017-01-16] MEDS ORDERED: INSULIN REGULAR 100 UNIT in SODIUM CHLORIDE 0.9% 100 ML IV SCH (09:15)
[2017-01-16 11:18] LABS: Glucose,Whole Blood 226 mg/dL (75-99)
[2017-01-16] MEDS ORDERED: VANCOMYCIN 1,000 MG in SODIUM CHLORIDE 0.9% 250 ML IVPB ONE (12:00)
[2017-01-16 12:18] LABS: Glucose,Whole Blood 223 mg/dL (75-99)
[2017-01-16] MEDS: INSULIN LISPRO (humaLOG) 300 UNIT/3 ML VIAL SQ SCH ×2 (12:19→19:53)
[2017-01-16 14:33] LABS: Glucose,Whole Blood 213 mg/dL (75-99)
[2017-01-16 16:08] LABS: Glucose,Whole Blood 243 mg/dL (75-99)
[2017-01-16 16:18] LABS: ABG Base Excess -0.7 mmol/L; ABG HCO3 22 mmol/L (21-25); ABG PCO2 29 mmHg (35-45); ABG PH 7.49 (7.35-7.45); ABG PO2 79 mmHg (83-108); ABG TCO2 23 mmol/L (19-24)
[2017-01-16 16:19] LABS: ABG Oxygen Saturation 96.8 % (94-97)
--- NOTE | 2017-01-16 16:52 | XR ---
EXAMINATION TYPE: XR chest 1V portable DATE OF EXAM: 01/16/2017 Comparison: 01/15/2017 Clinical History: 49-year-old female, follow-up CHF Findings: The heart remains borderline to mildly enlarged. Atelectatic calcifications throughout the aorta. Dif fuse interstitial and vascular prominence persists along with small pleural effusions and right basil ar opacities, slightly increased from prior. A left-sided axillary stent is present. Impression: Continued findings suggesting fluid overload with CHF and interstitial pulmonary edema. Small effusio ns with adjacent atelectasis and/or consolidation are increased.
--- NOTE | 2017-01-16 17:03 | CONS ---
CONSULTATION DATE OF CONSULTATION: 01/16/2017. REASON FOR CONSULT: End-stage renal disease. HISTORY OF PRESENT ILLNESS: The patient is a 57-year-old female with end-stage renal disease on hemodialysis on a Thursday, Thursday, Thursday schedule via left arm AV fistula. She was admitted to the hospital with confusion. She had a fever of 102 and has had significant diarrhea. The stool for C diff is currently pending. The patient was scheduled for hemodialysis today and she had become progressively hypoxic and started dialysis early this morning. Her O2 sats have improved. We are going for about 2.5 L of ultrafiltration. PAST MEDICAL HISTORY: End-stage renal disease, anemia with recent GI bleed, CKD mineral bone disorder, atrial fibrillation, history of heart failure, CVA, TIA, gastroesophageal reflux disease, osteoarthritis, history of pneumonia recently. PAST SURGICAL HISTORY: Cholecystectomy, cardiac catheterization, coronary stent, hysterectomy, left arm AV fistula. Multiple dialysis catheters previously, cataract surgery, D and C, laser surgery for retinopathy. SOCIAL HISTORY: The patient is a former smoker, stopped in 2012. No history of drug abuse or alcohol abuse. MEDICATIONS: Medications at home included Lasix, albuterol, Plavix, insulin, Lipitor, Xanax, Renvela, Norvasc, Restoril, Aranesp, Coumadin. ALLERGIES: Include DYE, PENICILLIN, SHELLFISH, CLONIDINE. EXAMINATION: Patient is currently sleepy. She is lethargic but arousable. Not in any acute distress. Blood pressure was 132/68. She is afebrile. Examination of the heart: S1, S2. Examination lungs: Decreased breath sounds at bases. Abdomen is soft, nontender. Examination lower extremities shows no significant edema. LAB: Show sodium 139, potassium 4.2, BUN 54, serum creatinine 8.6, BNP was [address]. ASSESSMENT: 1. End-stage renal disease, on hemodialysis on a Thursday, Thursday, Thursday schedule. 2. Fluid overload/congestive heart failure, currently on dialysis. 3. Fever, rule out C. difficile colitis. Chest x-ray does not show any significant infiltrates except for pulmonary venous congestion. 4. Recent GI bleed, currently off of anticoagulation. Coumadin is on hold. The patient is still, however, getting the Lovenox. PLAN: Will evaluate tomorrow for possible need for dialysis again depending on her fluid status. Follow up on the stool for C diff. MMODL / IJN: [id number] /
[2017-01-16] MEDS ORDERED: WARFARIN 5 MG TAB PO SCH (18:00)
[2017-01-16 19:00] LABS: Glucose,Whole Blood 237 mg/dL (75-99)
[2017-01-16] MEDS ORDERED: INSULIN REGULAR BOLUS (FROM DRIP BAG) IV ONE (19:48)
[2017-01-16] MEDS ORDERED: ACETAMINOPHEN IV (For NPO) 1,000 MG in EMPTY BAG 1 BAG IVPB ONE (20:45)
[2017-01-16] MEDS: INSULIN REGULAR 100 UNIT in SODIUM CHLORIDE 0.9% 100 ML IV SCH (21:50)
[2017-01-16 22:39] LABS: Calcium 8.2 mg/dL (8.4-10.2); Potassium 3.8 mmol/L (3.5-5.1)
[2017-01-16 22:43] LABS: INR 1.1 (<1.2); Prothrombin Time 10.9 sec (9.0-12.0)
[2017-01-16 23:02] LABS: Glucose,Whole Blood 244 mg/dL (75-99)
[2017-01-16 23:02] LABS: Glucose,Whole Blood 192 mg/dL (75-99)
--- NOTE | 2017-01-16 23:18 | P.HPIM ---
History of Present Illness H&P Date: 01/16/17 Chief Complaint: Fever and altered mental status Patient is a 56-year-old female with a past medical history of ESRD on hemodialysis MWF via AV graft, hypertension, diabetes type 2 history of coronary disease and recently diagnosed atrial fibrillation and was started on anticoagulation with Coumadin presented to the ER due to altered mental status. Patient had hemodialysis last night. Patient was supposed to be confused at the time. Patient woke up next morning with more confusion and also noted to have fevers. Patient's family member says that blood culture set dialysis Center showed infection and patient was sent to Hospital. Otherwise patient seems to be lethargic and confused but oriented 2. Denied any complaints of chest pain or short of breath. No nausea or nausea vomiting or diarrhea. Patient had one episode of diarrhea and C. diff was sent. Today afternoon patient became more confused and shortness of breath requiring oxygen. Patient was placed on Ventimask and repeat labs were attempted but could not get IV access. Patient was placed on telemetry monitoring and ABGs will be obtained. Patient had hemodialysis today. Chest x-ray on admission showed fluid overload BNP greater than 80,000 on admission. Patient was recently admitted to the hospital with a GI bleed/darker stools. Patient was started back on anti-coagulation after a week and current hemoglobin is 7.9. Otherwise patient does not have any fever or chills now . Blood cultures were sent. No leukocytosis noted. Patient was found to have hyperglycemia and was started on insulin drip. Her gap 16 and bicarbonate 19. Acetone positive. Review of Systems Constitutional: Patient had fever and generalized weakness and lethargic. Abdomen: Patient denied nausea vomiting and diarrhea and abdominal pain. Cardiovascular: Patient denies any chest pain or short of breath no palpitations. Respiratory: patient denied any cough is from production. No shortness of breath Neurologic: Patient denied any numbness or tingling headache. Musculoskeletal: Patient denies any complaints of joint swelling or deformity. Skin: Negative Psychiatric: Negative Endocrine: No heat or cold intolerance. No recent weight gain. Genitourinary: No dysuria or hematuria. All other 14 point ROS negative except the above Past Medical History Past Medical History: Atrial Fibrillation, Coronary Artery Disease (CAD), Heart Failure, CVA/TIA, Diabetes Mellitus, GERD/Reflux, GI Bleed, Hyperlipidemia, Osteoarthritis (OA), Pneumonia, Renal Disease, Vascular Disorder Additional Past Medical History / Comment(s): Coronary artery disease, preserved LV function with an ejection fraction of 55% and moderate degree of MR , IDDM type II, End stage renal failure with hemodialysis MWF-on kidney transplant list thru [facility], CVA 2007 with some peripheral vision problems R eye and R ear [place]IGNIK LAGOON, lower GI bleed, PAD, DJD, diverticulosis, pancreatitis, bronchitis, TMJ, sinus problems at times, UTIs, benign polypectomies, anemia. History of Any Multi-Drug Resistant Organisms: None Reported Past Surgical History: Cholecystectomy, Heart Catheterization, Heart Catheterization With Stent, Hysterectomy Additional Past Surgical History / Comment(s): L upper arm for dialysis cath, 3 Cardiac stents, one stent rt leg, EGD/colonoscopies/benign polypectomies , bilateral cataract removal, laser sx bilateral eyes for retinopathy, D&C, left axillary I&D Past Anesthesia/Blood Transfusion Reactions: Motion Sickness, Postoperative Nausea & Vomiting (PONV) Additional Past Anesthesia/Blood Transfusion Reaction / Comment(s): Pt has received blood in the past without reaction. Date of Last Stent Placement:: 09/22/13 Past Psychological History: No Psychological Hx Reported Additional Psychological History / Comment(s): Pt resides with her spouse. She is normally independent.lives in a single level home that has 3 front steps. no pets. no home care services. has a glucometer, bp monitor. Smoking Status: Never smoker Past Alcohol Use History: Occasional Additional Past Alcohol Use History / Comment(s): Pt smoked from 1983 to 2012. 2 PPD Past Drug Use History: None Reported - Past Family History Mother Family Medical History: No Reported History Additional Family Medical History / Comment(s): Mother is 76 yrs old. Father Family Medical History: Diabetes Mellitus Additional Family Medical History / Comment(s): Father at the age of 42yrs- pt does not know reason. Medications and Allergies Home Medications Medication Instructions Recorded Confirmed Type Furosemide [Lasix] 80 mg PO BID 09/17/13 01/15/17 History Albuterol Inhaler [Ventolin Hfa 1 puff INHALATION RT-BID PRN 02/12/16 01/15/17 History Inhaler] Clopidogrel [Plavix] 75 mg PO DAILY tab 02/16/16 01/15/17 Rx Atorvastatin [Lipitor] 40 mg PO HS 07/16/16 01/15/17 History Insulin Aspart [NovoLOG Flexpen] See Protocol SQ AC-TID 07/16/16 01/15/17 History ALPRAZolam [Xanax] 0.25 mg PO HS PRN 07/29/16 01/15/17 History Aspirin EC [Ecotrin Low Dose] 81 mg PO DAILY 10/30/16 01/15/17 History Folic Acid-Vit B Complex-Vit C 1 cap PO DAILY 10/30/16 01/15/17 History [Nephrocaps] Nitroglycerin Sl Tabs [Nitrostat] 0.4 mg SUBLINGUAL Q5M PRN 10/30/16 01/15/17 History Sevelamer [Renvela] 2,400 mg PO AC-TID 10/30/16 01/15/17 History amLODIPine [Norvasc] 5 mg PO DAILY 10/30/16 01/15/17 History Temazepam [Restoril] 15 mg PO HS PRN #15 cap 11/01/16 01/15/17 Rx Metoprolol Succinate (ER) [Toprol 50 mg PO DAILY 11/26/16 01/15/17 History XL] Darbepoetin Doroteo [Aranesp] 40 mcg SQ Q7D syr 12/01/16 01/15/17 Rx Insulin Glargine,Hum.rec.anlog 38 unit SQ HS 01/01/17 01/15/17 History [Lantus Solostar] Warfarin [Coumadin] 5 mg PO HS@1800 01/01/17 01/15/17 History Gabapentin [Neurontin] 100 mg PO TID 01/02/17 01/15/17 History Midodrine [ProAmatine] 5 mg PO MoWeFr@0900 tab 01/05/17 01/15/17 Rx Spironolactone [Aldactone] 25 mg PO DAILY #30 tab 01/05/17 01/15/17 Rx Allergies Allergy/AdvReac Type Severity Reaction Status Date / Time clonidine Allergy Anaphylaxis Verified 01/15/17 16:14 Iodinated Contrast- Oral and Allergy Anaphylaxis Verified 01/15/17 16:14 IV Dye iodine Allergy Anaphylaxis Verified 01/15/17 16:14 Penicillins Allergy Rash/Hives Verified 01/15/17 16:14 shellfish derived Allergy Anaphylaxis Verified 01/15/17 16:14 Physical Exam Vitals: Vital Signs Temp Pulse Pulse Resp BP BP Pulse Ox 01/16/17 07:00 96.4 F L 18 168/68 97 01/15/17 23:00 98.4 F 88 18 124/46 90 L 01/15/17 18:00 79 16 01/15/17 17:54 99.0 F 79 16 116/48 91 L 01/15/17 17:07 102.1 F H 85 18 142/63 96 01/15/17 16:02 98 18 156/55 96 01/15/17 15:48 92 18 173/72 98 01/15/17 15:32 17 167/73 01/15/17 14:02 101.2 F H 84 18 152/65 90 L Intake and Output 01/15/17 01/16/17 01/16/17 22:59 06:59 14:59 Other: Voiding Method Bedside Commode # Voids 1 2 # Bowel Movements 1 Weight 72.5 kg Results CBC & Chem 7: 01/15/17 16:11 01/16/17 22:20 Labs: Abnormal Lab Results - Last 24 Hours (Table) 01/15/17 01/15/17 01/15/17 Range/Units 16:11 16:11 16:11 RBC 2.52 L (3.80-5.40) m/uL Hgb 7.9 L (11.4-16.0) gm/dL Hct 25.1 L (34.0-46.0) % RDW 20.2 H (11.5-15.5) % Lymphocytes # 0.5 L (1.0-4.8) k/uL Chloride 97 L (98-107) mmol/L Carbon Dioxide (22-30) mmol/L BUN 52 H (7-17) mg/dL Creatinine 9.40 H* (0.52-1.04) mg/dL Glucose 166 H (74-99) mg/dL POC Glucose (mg/dL) (75-99) mg/dL Calcium (8.4-10.2) mg/dL Magnesium 2.4 H (1.6-2.3) mg/dL AST 42 H (14-36) U/L Troponin I 0.178 H* (0.000-0.034) ng/mL 01/15/17 01/15/17 01/16/17 Range/Units 17:49 20:56 03:13 RBC (3.80-5.40) m/uL Hgb (11.4-16.0) gm/dL Hct (34.0-46.0) % RDW (11.5-15.5) % Lymphocytes # (1.0-4.8) k/uL Chloride (98-107) mmol/L Carbon Dioxide (22-30) mmol/L BUN (7-17) mg/dL Creatinine (0.52-1.04) mg/dL Glucose (74-99) mg/dL POC Glucose (mg/dL) 146 H 273 H (75-99) mg/dL Calcium (8.4-10.2) mg/dL Magnesium (1.6-2.3) mg/dL AST (14-36) U/L Troponin I 0.182 H* (0.000-0.034) ng/mL 01/16/17 01/16/17 01/16/17 Range/Units 07:18 08:00 11:03 RBC (3.80-5.40) m/uL Hgb (11.4-16.0) gm/dL Hct (34.0-46.0) % RDW (11.5-15.5) % Lymphocytes # (1.0-4.8) k/uL Chloride (98-107) mmol/L Carbon Dioxide 21 L (22-30) mmol/L BUN 54 H (7-17) mg/dL Creatinine 8.68 H* (0.52-1.04) mg/dL Glucose 412 H (74-99) mg/dL POC Glucose (mg/dL) 409 H 226 H (75-99) mg/dL Calcium 8.1 L (8.4-10.2) mg/dL Magnesium (1.6-2.3) mg/dL AST (14-36) U/L Troponin I (0.000-0.034) ng/mL Thrombosis Risk Factor Assmnt - Choose All That Apply Each Factor Represents 1 point: Age 41-60 years, Obesity (BMI >25) Thrombosis Risk Factor Assessment Total Risk Factor Score: 2 Thrombosis Risk Factor Assessment Level: Low Risk Assessment and Plan Assessment: #1 fever. Rule out infection. Influenza negative. Chest x-ray showed fluid overload no infiltrates noted. Urine culture was ordered. Patient does not have any cough or sputum production. Blood cultures were sent. Currently patient is afebrile. We'll follow up on culture reports. C. diff toxin was sent. #2 altered mental status/metabolic encephalopathy likely due to infection and electrolyte abnormality #3 mild DKA. Patient was started on insulin drip. AG-16 and a acetone positive. #2 recent Dark colored stools due to GI bleed. Hemoglobin 7.9 on admission. Will follow H&H. Patient has been started on Coumadin. #2 paroxysmal atrial fibrillation on anticoagulation with Coumadin #3 ESRD on hemo-dialysis. Left AV graft. Thursday was decided #3 history of coronary artery disease status post stent placement #5. Anemia of chronic disease on epogen #6 elevated troponin level. Unlikely acute OK #7 diabetes type 2 uncontrolled with A1c 8.4 #8 hypertension #9 history of GI bleed in November 2015. Status post coloscopy and found to have AVM Plan: Patient had hemodialysis done today. Patient will be continued on insulin drip and follow up blood sugars and insulin dosing. We will continue the antibiotics in the form of vancomycin. Stool for C. diff was sent. Will follow -up blood cultures and urine cultures. Nephrology is on board. Will monitor H& H. Further recommendations based on the clinical course. Prognosis is guarded with multiple medical problems and comorbid conditions discussed with family in detail at bedside. Time with Patient: Greater than 30
[2017-01-17 00:12] LABS: Glucose,Whole Blood 133 mg/dL (75-99)
[2017-01-17 01:13] LABS: Glucose,Whole Blood 123 mg/dL (75-99)
[2017-01-17 02:00] LABS: Glucose,Whole Blood 105 mg/dL (75-99)
[2017-01-17 03:02] LABS: Glucose,Whole Blood 92 mg/dL (75-99)
[2017-01-17 03:46] LABS: Glucose,Whole Blood 90 mg/dL (75-99)
[2017-01-17 04:04] LABS: Glucose,Whole Blood 103 mg/dL (75-99)
[2017-01-17] MEDS ORDERED: ALPRAZolam 0.25 MG TAB PO PRN (04:47)
[2017-01-17] MEDS ORDERED: TEMAZEPAM 15 MG CAP PO PRN (04:47)
[2017-01-17] MEDS ORDERED: METOPROLOL SUCCINATE (ER) 50 MG TAB.ER.24H PO ONE (05:00)
[2017-01-17 05:23] LABS: Glucose,Whole Blood 141 mg/dL (75-99)
[2017-01-17 06:04] LABS: Glucose,Whole Blood 186 mg/dL (75-99)
[2017-01-17 06:26] LABS: INR 1.1 (<1.2); Prothrombin Time 10.8 sec (9.0-12.0)
[2017-01-17] MEDS: INSULIN LISPRO (humaLOG) 300 UNIT/3 ML VIAL SQ SCH ×2 (07:00→13:10)
[2017-01-17 07:04] LABS: Glucose,Whole Blood 178 mg/dL (75-99)
[2017-01-17 07:10] LABS: Calcium 8.7 mg/dL (8.4-10.2); Potassium 4.2 mmol/L (3.5-5.1)
[2017-01-17 08:08] LABS: Anisocytosis Slight; Basophils % (A) 0 %; CH 30.8; CHCM 29.5; Eosinophils % (A) 0 %; HDW 2.83; HGB 7.4 gm/dL (11.4-16.0); Hypochromasia Marked; Luc # (Auto) 0.06; Luc % (Auto) 1; Lymphocytes # (A) 0.3 k/uL (1.0-4.8); Lymphocytes % (A) 6 %; MCHC 29.6 g/dL (31.0-37.0); Macrocytosis Marked; Mean Platelet Volume 7.9; Monocytes # (A) 0.2 k/uL (0-1.0); Monocytes % (A) 3 %; Neutrophils # (A) 4.9 k/uL (1.3-7.7); Neutrophils % (A) 90 %; RBC 2.38 m/uL (3.80-5.40); RDW 18.7 % (11.5-15.5); WBC 5.5 k/uL (3.8-10.6); WBC (Perox) 5.62
[2017-01-17 08:12] LABS: MCV 104.9 fL (80.0-100.0)
[2017-01-17 08:27] LABS: Glucose,Whole Blood 267 mg/dL (75-99)
[2017-01-17 08:58] LABS: Glucose,Whole Blood 238 mg/dL (75-99)
[2017-01-17] MEDS ORDERED: ENOXAPARIN 30 MG/0.3 ML SYRINGE SQ SCH (09:00)
--- NOTE | 2017-01-17 09:42 | P.PN ---
Subjective Progress Note Date: 01/17/17 (ESRD) Patient seen and examined for the follow-up of ESRD. Lying in bed. No acute distress. 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 No nausea vomiting diarrhea. She is coughing. Objective - Vital Signs Vital signs: Vital Signs Temp 101 F H 01/17/17 08:00 Pulse 100 01/17/17 08:00 Resp 24 01/17/17 08:00 BP 130/59 01/17/17 08:00 Pulse Ox 97 01/17/17 08:00 Intake & Output 01/16/17 01/17/17 01/17/17 18:59 06:59 18:59 Intake Total 15.75 23.173 0.583 Balance 15.75 23.173 0.583 Weight 68.5 kg Intake: Intake, IV Titration 15.75 23.173 0.583 Amount Insulin Regular 100 unit 23.173 0.583 In Sodium Chloride 0.9% 100 ml @ 0.1 UNITS/KG/HR 7.32 mls/hr IV .[id number] [facility] Rx#:[id number] Insulin Regular 100 unit 15.75 In Sodium Chloride 0.9% 100 ml @ Titrate IV .Q0M [facility] Rx#:[id number] Other: Voiding Method Bedside Commode # Voids 0 0 # Bowel Movements 1 - Exam Lying in bed no acute distress S1 and S2 heard Clear to auscultation no edema - Labs CBC & Chem 7: 01/17/17 07:56 01/17/17 05:37 Labs: Abnormal Lab Results - Last 24 Hours (Table) 01/16/17 01/16/17 01/16/17 Range/Units 11:03 12:16 14:29 RBC (3.80-5.40) m/uL Hgb (11.4-16.0) gm/dL Hct (34.0-46.0) % MCV (80.0-100.0) fL MCHC (31.0-37.0) g/dL RDW (11.5-15.5) % Lymphocytes # (1.0-4.8) k/uL ABG pH (7.35-7.45) ABG pCO2 (35-45) mmHg ABG pO2 (83-108) mmHg Sodium (137-145) mmol/L Carbon Dioxide (22-30) mmol/L BUN (7-17) mg/dL Creatinine (0.52-1.04) mg/dL Glucose (74-99) mg/dL POC Glucose (mg/dL) 226 H 223 H 213 H (75-99) mg/dL Calcium (8.4-10.2) mg/dL Phosphorus (2.5-4.5) mg/dL 01/16/17 01/16/17 01/16/17 Range/Units 15:55 16:17 18:40 RBC (3.80-5.40) m/uL Hgb (11.4-16.0) gm/dL Hct (34.0-46.0) % MCV (80.0-100.0) fL MCHC (31.0-37.0) g/dL RDW (11.5-15.5) % Lymphocytes # (1.0-4.8) k/uL ABG pH 7.49 H (7.35-7.45) ABG pCO2 29 L (35-45) mmHg ABG pO2 79 L (83-108) mmHg Sodium (137-145) mmol/L Carbon Dioxide (22-30) mmol/L BUN (7-17) mg/dL Creatinine (0.52-1.04) mg/dL Glucose (74-99) mg/dL POC Glucose (mg/dL) 243 H 237 H (75-99) mg/dL Calcium (8.4-10.2) mg/dL Phosphorus (2.5-4.5) mg/dL 01/16/17 01/16/17 01/16/17 Range/Units 21:48 22:20 23:00 RBC (3.80-5.40) m/uL Hgb (11.4-16.0) gm/dL Hct (34.0-46.0) % MCV (80.0-100.0) fL MCHC (31.0-37.0) g/dL RDW (11.5-15.5) % Lymphocytes # (1.0-4.8) k/uL ABG pH (7.35-7.45) ABG pCO2 (35-45) mmHg ABG pO2 (83-108) mmHg Sodium 134 L (137-145) mmol/L Carbon Dioxide 19 L (22-30) mmol/L BUN 49 H (7-17) mg/dL Creatinine 7.70 H* (0.52-1.04) mg/dL Glucose 239 H (74-99) mg/dL POC Glucose (mg/dL) 244 H 192 H (75-99) mg/dL Calcium 8.2 L (8.4-10.2) mg/dL Phosphorus 5.0 H (2.5-4.5) mg/dL 01/16/17 01/17/17 01/17/17 Range/Units 23:59 01:01 01:57 RBC (3.80-5.40) m/uL Hgb (11.4-16.0) gm/dL Hct (34.0-46.0) % MCV (80.0-100.0) fL MCHC (31.0-37.0) g/dL RDW (11.5-15.5) % Lymphocytes # (1.0-4.8) k/uL ABG pH (7.35-7.45) ABG pCO2 (35-45) mmHg ABG pO2 (83-108) mmHg Sodium (137-145) mmol/L Carbon Dioxide (22-30) mmol/L BUN (7-17) mg/dL Creatinine (0.52-1.04) mg/dL Glucose (74-99) mg/dL POC Glucose (mg/dL) 133 H 123 H 105 H (75-99) mg/dL Calcium (8.4-10.2) mg/dL Phosphorus (2.5-4.5) mg/dL 01/17/17 01/17/17 01/17/17 Range/Units 04:03 05:11 05:37 RBC (3.80-5.40) m/uL Hgb (11.4-16.0) gm/dL Hct (34.0-46.0) % MCV (80.0-100.0) fL MCHC (31.0-37.0) g/dL RDW (11.5-15.5) % Lymphocytes # (1.0-4.8) k/uL ABG pH (7.35-7.45) ABG pCO2 (35-45) mmHg ABG pO2 (83-108) mmHg Sodium 136 L (137-145) mmol/L Carbon Dioxide 15 L (22-30) mmol/L BUN 55 H (7-17) mg/dL Creatinine 8.70 H* (0.52-1.04) mg/dL Glucose 207 H (74-99) mg/dL POC Glucose (mg/dL) 103 H 141 H (75-99) mg/dL Calcium (8.4-10.2) mg/dL Phosphorus (2.5-4.5) mg/dL 01/17/17 01/17/17 01/17/17 Range/Units 06:02 07:01 07:56 RBC 2.38 L (3.80-5.40) m/uL Hgb 7.4 L (11.4-16.0) gm/dL Hct 25.0 L (34.0-46.0) % MCV 104.9 H D (80.0-100.0) fL MCHC 29.6 L (31.0-37.0) g/dL RDW 18.7 H (11.5-15.5) % Lymphocytes # 0.3 L (1.0-4.8) k/uL ABG pH (7.35-7.45) ABG pCO2 (35-45) mmHg ABG pO2 (83-108) mmHg Sodium (137-145) mmol/L Carbon Dioxide (22-30) mmol/L BUN (7-17) mg/dL Creatinine (0.52-1.04) mg/dL Glucose (74-99) mg/dL POC Glucose (mg/dL) 186 H 178 H (75-99) mg/dL Calcium (8.4-10.2) mg/dL Phosphorus (2.5-4.5) mg/dL 01/17/17 01/17/17 Range/Units 08:14 08:56 RBC (3.80-5.40) m/uL Hgb (11.4-16.0) gm/dL Hct (34.0-46.0) % MCV (80.0-100.0) fL MCHC (31.0-37.0) g/dL RDW (11.5-15.5) % Lymphocytes # (1.0-4.8) k/uL ABG pH (7.35-7.45) ABG pCO2 (35-45) mmHg ABG pO2 (83-108) mmHg Sodium (137-145) mmol/L Carbon Dioxide (22-30) mmol/L BUN (7-17) mg/dL Creatinine (0.52-1.04) mg/dL Glucose (74-99) mg/dL POC Glucose (mg/dL) 267 H 238 H (75-99) mg/dL Calcium (8.4-10.2) mg/dL Phosphorus (2.5-4.5) mg/dL Microbiology - Last 24 Hours (Table) 01/15/17 16:11 Blood Culture - Preliminary Blood No Growth after 24 hours Assessment and Plan Assessment: Assessment: #1 end-stage renal disease Thursday via left upper arm AVG. #2 fevers with confusion, source unclear. Rule out meningitis/encephalitis. #3 fluid overload secondary to CHF. #4 diabetes currently treated as DKA. #5 A. fib on anticoagulation. Recommendations: #1 plan HD again today. #2 had a dose of vancomycin. Consider expanding antibiotic coverage for persistent fevers. #3 CT of the head was negative. If fevers and confusion persists need LP. #4 check iron profile and ferritin. Thank you very much for involving in the care, will follow along while she is in the hospital.
[2017-01-17 09:47] LABS: Polychromasia Present
[2017-01-17 10:58] LABS: Glucose,Whole Blood 269 mg/dL (75-99)
[2017-01-17 11:25] LABS: Glucose,Whole Blood 235 mg/dL (75-99)
[2017-01-17 12:22] LABS: Glucose,Whole Blood 205 mg/dL (75-99)
[2017-01-17] MEDS ORDERED: cefTRIAXone IN SWFI 1,000 MG/10 ML SYRINGE IVP SCH (12:30)
[2017-01-17 13:01] LABS: Glucose,Whole Blood 210 mg/dL (75-99)
[2017-01-17] MEDS: GABAPENTIN 100 MG CAP PO SCH ×3 (13:08→21:31)
[2017-01-17] MEDS: FUROSEMIDE 80 MG TAB PO SCH ×2 (13:16→21:31)
[2017-01-17] MEDS: ASPIRIN 81 MG PO SCH (13:22)
[2017-01-17] MEDS: amLODIPine 5 MG TAB PO SCH (13:22)
[2017-01-17] MEDS: FOLIC ACID-VIT B COMPLEX-VIT C 1 CAP PO SCH (13:23)
[2017-01-17] MEDS: CLOPIDOGREL 75 MG TAB PO SCH (13:23)
[2017-01-17] MEDS: INSULIN REGULAR 100 UNIT in SODIUM CHLORIDE 0.9% 100 ML IV SCH (13:23)
--- NOTE | 2017-01-17 13:26 | P.CNPUL ---
History of Present Illness Consult date: 01/17/17 Chief complaint: Altered mentation, fever, End stage renal disease History of present illness: A 57-year-old female patient who presented to the hospital because of altered mental status. The patient apparently was getting more lethargic and sleepy and somewhat confused. The patient was also having fever on an outpatient basis. Blood Cultures have been sent and the dialysis site and apparently the blood cultures were told to be positive and for that reason the patient was sent into the hospital. The patient was given a dose of vancomycin and the patient's random vancomycin level is at 32. The patient has some limited diarrhea which has subsided. No nausea. No vomiting. No abdominal pain. No chest pain. She has an AV Ciaran the left upper extremity for dialysis. No cellulitis. No headaches. No neck stiffness. At the time of my evaluation, the patient was afebrile and her mentation was already improving. She opened her eyes patient moved all 4 extremities. She was able to recognize me as of taking care of this patient the past 4 issues related to her incisional disease and fluid overload. This is a very pleasant -[place] female patient with known history of end-stage renal disease on hemodialysis 3 times a week, Wednesdays and Fridays via a left upper extremity AV graft. The patient has been compliant to her treatment. The patient is known to have coronary artery disease. The patient has undergone previous angioplasty of the ramus intermedius artery artery in July 2016. He has been hospitalized in the past to the intensive care unit for hypertensive emergency and fluid overload. She was treated appropriately without any complications. She has a preserved LV function with an ejection fraction of 55%. She also has a moderate degree of mitral regurgitation. Cardiac catheterization was done during her latest admission and she has smaller vessel coronary artery disease. Not abnormal for any intervention. Note that she had a similar presentation in 08/01/2016 when she came in with pulmonary edema and fluid overload and hypertensive urgency with systolic blood pressure running in the 180-190 range. At that time the patient was placed on nitroglycerin drip which improved her blood pressure control. Subsequently she had [id number] dialysis with ultrafiltration and the pulmonary edema recovered. She has a preserved LV function based on previous echocardiograms. Please refer also to the most recent cardiac catheterization was done in July 2016. Review of Systems All systems: Constitutional: Denies chills, patient was having episodes of fever even on outpatient basis and she was also told to have a possible culture. Eyes: denies blurred vision, denies pain Ears, nose, mouth and throat: Denies headache, Denies sore throat Cardiovascular: Denies chest pain, Denies shortness of breath Respiratory: Denies cough Gastrointestinal: Denies abdominal pain, Denies diarrhea, Denies nausea, Denies vomiting Genitourinary: Denies dysuria, Denies hematuria urine output is minimal secondary to dialysis. Musculoskeletal: Denies myalgias Integumentary: Denies pruritus, Denies rash Neurological: Diminished mentation but seems to be improving for now. There is no focal neurological deficit at time of my evaluation. No seizure activity. Psychiatric: Denies anxiety, Denies depression Endocrine: fatigue, Denies weight change Past Medical History Past Medical History: Atrial Fibrillation, Coronary Artery Disease (CAD), Heart Failure, CVA/TIA, Diabetes Mellitus, GERD/Reflux, GI Bleed, Hyperlipidemia, Osteoarthritis (OA), Pneumonia, Renal Disease, Vascular Disorder Additional Past Medical History / Comment(s): Coronary artery disease, preserved LV function with an ejection fraction of 55% and moderate degree of MR , IDDM type II, End stage renal failure with hemodialysis MWF-on kidney transplant list thru [facility], CVA 2007 with some peripheral vision problems R eye and R ear KAIBAB, lower GI bleed, PAD, DJD, diverticulosis, pancreatitis, bronchitis, TMJ, sinus problems at times, UTIs, benign polypectomies, anemia. History of Any Multi-Drug Resistant Organisms: None Reported Past Surgical History: Cholecystectomy, Heart Catheterization, Heart Catheterization With Stent, Hysterectomy Additional Past Surgical History / Comment(s): L upper arm for dialysis cath, 3 Cardiac stents, one stent rt leg, EGD/colonoscopies/benign polypectomies , bilateral cataract removal, laser sx bilateral eyes for retinopathy, D&C, left axillary I&D Past Anesthesia/Blood Transfusion Reactions: Motion Sickness, Postoperative Nausea & Vomiting (PONV) Additional Past Anesthesia/Blood Transfusion Reaction / Comment(s): Pt has received blood in the past without reaction. Date of Last Stent Placement:: 09/22/13 Past Psychological History: No Psychological Hx Reported Additional Psychological History / Comment(s): Pt resides with her spouse. She is normally independent.lives in a single level home that has 3 front steps. no pets. no home care services. has a glucometer, bp monitor. Smoking Status: Never smoker Past Alcohol Use History: Occasional Additional Past Alcohol Use History / Comment(s): Pt smoked from 1983 to 2012. 2 PPD Past Drug Use History: None Reported - Past Family History Mother Family Medical History: No Reported History Additional Family Medical History / Comment(s): Mother is 76 yrs old. Father Family Medical History: Diabetes Mellitus Additional Family Medical History / Comment(s): Father at the age of 42yrs- pt does not know reason. Medications and Allergies Home Medications Medication Instructions Recorded Confirmed Type Furosemide [Lasix] 80 mg PO BID 09/17/13 01/15/17 History Albuterol Inhaler [Ventolin Hfa 1 puff INHALATION RT-BID PRN 02/12/16 01/15/17 History Inhaler] Clopidogrel [Plavix] 75 mg PO DAILY tab 02/16/16 01/15/17 Rx Atorvastatin [Lipitor] 40 mg PO HS 07/16/16 01/15/17 History Insulin Aspart [NovoLOG Flexpen] See Protocol SQ AC-TID 07/16/16 01/15/17 History ALPRAZolam [Xanax] 0.25 mg PO HS PRN 07/29/16 01/15/17 History Aspirin EC [Ecotrin Low Dose] 81 mg PO DAILY 10/30/16 01/15/17 History Folic Acid-Vit B Complex-Vit C 1 cap PO DAILY 10/30/16 01/15/17 History [Nephrocaps] Nitroglycerin Sl Tabs [Nitrostat] 0.4 mg SUBLINGUAL Q5M PRN 10/30/16 01/15/17 History Sevelamer [Renvela] 2,400 mg PO AC-TID 10/30/16 01/15/17 History amLODIPine [Norvasc] 5 mg PO DAILY 10/30/16 01/15/17 History Temazepam [Restoril] 15 mg PO HS PRN #15 cap 11/01/16 01/15/17 Rx Metoprolol Succinate (ER) [Toprol 50 mg PO DAILY 11/26/16 01/15/17 History XL] Darbepoetin Doroteo [Aranesp] 40 mcg SQ Q7D syr 12/01/16 01/15/17 Rx Insulin Glargine,Hum.rec.anlog 38 unit SQ HS 01/01/17 01/15/17 History [Lantus Solostar] Warfarin [Coumadin] 5 mg PO HS@1800 01/01/17 01/15/17 History Gabapentin [Neurontin] 100 mg PO TID 01/02/17 01/15/17 History Midodrine [ProAmatine] 5 mg PO MoWeFr@0900 tab 01/05/17 01/15/17 Rx Spironolactone [Aldactone] 25 mg PO DAILY #30 tab 01/05/17 01/15/17 Rx Allergies Allergy/AdvReac Type Severity Reaction Status Date / Time clonidine Allergy Anaphylaxis Verified 01/15/17 16:14 Iodinated Contrast- Oral and Allergy Anaphylaxis Verified 01/15/17 16:14 IV Dye iodine Allergy Anaphylaxis Verified 01/15/17 16:14 Penicillins Allergy Rash/Hives Verified 01/15/17 16:14 shellfish derived Allergy Anaphylaxis Verified 01/15/17 16:14 Physical Exam Vitals: Vital Signs Temp Pulse Resp BP Pulse Ox 01/17/17 11:20 98.9 F 91 20 143/65 100 01/17/17 08:00 101 F H 100 24 130/59 97 01/17/17 04:40 140 H 18 141/59 95 01/17/17 04:00 99.6 F 94 18 130/57 100 01/17/17 00:00 99.2 F 90 18 106/50 97 01/16/17 21:47 96 01/16/17 20:00 102.1 F H 96 18 136/61 98 01/16/17 17:10 98.9 F 90 16 156/62 99 01/16/17 15:41 98 01/16/17 14:46 99.7 F H 96 20 145/57 92 L Intake and Output 01/16/17 01/17/17 01/17/17 22:59 06:59 14:59 Intake Total 4.7 23.173 83.143 Balance 4.7 23.173 83.143 Intake: Intake, IV Titration 4.7 23.173 83.143 Amount Insulin Regular 100 unit 23.173 3.143 In Sodium Chloride 0.9% 100 ml @ 0.1 UNITS/KG/HR 7.32 mls/hr IV .[id number] [facility] Rx#:[id number] Insulin Regular 100 unit 4.7 In Sodium Chloride 0.9% 100 ml @ Titrate IV .Q0M [facility] Rx#:[id number] Sodium Chloride 0.9% 1, 80 000 ml @ 100 mls/hr IV . Q10H ONE Rx#:[id number] Other: Voiding Method Bedside Commode Diaper # Voids 0 0 Weight 68.5 kg 68.5 kg Patient Weight 01/18/17 05:59 Weight 68.5 kg Head exam was generally normal. There was no scleral icterus or corneal arcus. Mucous membranes were moist. Neck is supple and the patient is positive JVDs no goiter or neck masses. Lungs sounds are diminished in lung bases bilaterally along with some bibasilar crackles.Cardiac exam revealed the PMI to be normally situated and sized. The rhythm was regular and no extrasystoles were noted during several minutes of auscultation. The first and second heart sounds were normal and physiologic splitting of the second heart sound was noted. There were no murmurs, rubs, clicks, or gallops.Abdominal exam revealed normal bowel sounds. The abdomen was soft, non-tender, and without masses, organomegaly, or appreciable enlargement of the abdominal aorta.Examination of the extremities revealed easily palpable radial, femoral and pedal pulses. There was no cyanosis, clubbing or edema. The patient has a left upper extremity AV graft. Neurologically, the patient is a bit sleepy yet she was arousable. She was able to respond to me and communicated she was able to move all 4 extremities without any limitation. No neck stiffness. No focal logical deficits. No facial asymmetry. Pupils are equal and reactive to light. Results - Laboratory Findings CBC and BMP: 01/17/17 07:56 01/17/17 05:37 ABG ABG pH 7.49 (7.35-7.45) H 01/16/17 16:17 ABG pCO2 29 mmHg (35-45) L 01/16/17 16: ABG pO2 79 mmHg (83-108) L 01/16/17 16:17 ABG O2 Saturation 96.8 % (94-97) 01/16/17 16:17 PT/INR, D-dimer PT 10.8 sec (9.0-12.0) 01/17/17 05:37 INR 1.1 (<1.2) 01/17/17 05:37 Abnormal lab findings: Abnormal Labs 01/15/17 01/15/17 01/15/17 16:11 16:11 16:11 RBC 2.52 L Hgb 7.9 L Hct 25.1 L MCV MCHC RDW 20.2 H Lymphocytes # 0.5 L ABG pH ABG pCO2 ABG pO2 Sodium Chloride 97 L Carbon Dioxide BUN 52 H Creatinine 9.40 H* Glucose 166 H POC Glucose (mg/dL) Calcium Phosphorus Magnesium 2.4 H AST 42 H Troponin I 0.178 H* 01/15/17 01/15/17 01/16/17 17:49 20:56 03:13 RBC Hgb Hct MCV MCHC RDW Lymphocytes # ABG pH ABG pCO2 ABG pO2 Sodium Chloride Carbon Dioxide BUN Creatinine Glucose POC Glucose (mg/dL) 146 H 273 H Calcium Phosphorus Magnesium AST Troponin I 0.182 H* 01/16/17 01/16/17 01/16/17 07:18 08:00 11:03 RBC Hgb Hct MCV MCHC RDW Lymphocytes # ABG pH ABG pCO2 ABG pO2 Sodium Chloride Carbon Dioxide 21 L BUN 54 H Creatinine 8.68 H* Glucose 412 H POC Glucose (mg/dL) 409 H 226 H Calcium 8.1 L Phosphorus Magnesium AST Troponin I 01/16/17 01/16/17 01/16/17 12:16 14:29 15:55 RBC Hgb Hct MCV MCHC RDW Lymphocytes # ABG pH ABG pCO2 ABG pO2 Sodium Chloride Carbon Dioxide BUN Creatinine Glucose POC Glucose (mg/dL) 223 H 213 H 243 H Calcium Phosphorus Magnesium AST Troponin I 01/16/17 01/16/17 01/16/17 16:17 18:40 21:48 RBC Hgb Hct MCV MCHC RDW Lymphocytes # ABG pH 7.49 H ABG pCO2 29 L ABG pO2 79 L Sodium Chloride Carbon Dioxide BUN Creatinine Glucose POC Glucose (mg/dL) 237 H 244 H Calcium Phosphorus Magnesium AST Troponin I 01/16/17 01/16/17 01/16/17 22:20 23:00 23:59 RBC Hgb Hct MCV MCHC RDW Lymphocytes # ABG pH ABG pCO2 ABG pO2 Sodium 134 L Chloride Carbon Dioxide 19 L BUN 49 H Creatinine 7.70 H* Glucose 239 H POC Glucose (mg/dL) 192 H 133 H Calcium 8.2 L Phosphorus 5.0 H Magnesium AST Troponin I 01/17/17 01/17/17 01/17/17 01:01 01:57 04:03 RBC Hgb Hct MCV MCHC RDW Lymphocytes # ABG pH ABG pCO2 ABG pO2 Sodium Chloride Carbon Dioxide BUN Creatinine Glucose POC Glucose (mg/dL) 123 H 105 H 103 H Calcium Phosphorus Magnesium AST Troponin I 01/17/17 01/17/17 01/17/17 05:11 05:37 06:02 RBC Hgb Hct MCV MCHC RDW Lymphocytes # ABG pH ABG pCO2 ABG pO2 Sodium 136 L Chloride Carbon Dioxide 15 L BUN 55 H Creatinine 8.70 H* Glucose 207 H POC Glucose (mg/dL) 141 H 186 H Calcium Phosphorus Magnesium AST Troponin I 01/17/17 01/17/17 01/17/17 07:01 07:56 08:14 RBC 2.38 L Hgb 7.4 L Hct 25.0 L MCV 104.9 H D MCHC 29.6 L RDW 18.7 H Lymphocytes # 0.3 L ABG pH ABG pCO2 ABG pO2 Sodium Chloride Carbon Dioxide BUN Creatinine Glucose POC Glucose (mg/dL) 178 H 267 H Calcium Phosphorus Magnesium AST Troponin I 01/17/17 01/17/17 01/17/17 08:56 10:23 11:21 RBC Hgb Hct MCV MCHC RDW Lymphocytes # ABG pH ABG pCO2 ABG pO2 Sodium Chloride Carbon Dioxide BUN Creatinine Glucose POC Glucose (mg/dL) 238 H 269 H 235 H Calcium Phosphorus Magnesium AST Troponin I 01/17/17 01/17/17 12:20 12:58 RBC Hgb Hct MCV MCHC RDW Lymphocytes # ABG pH ABG pCO2 ABG pO2 Sodium Chloride Carbon Dioxide BUN Creatinine Glucose POC Glucose (mg/dL) 205 H 210 H Calcium Phosphorus Magnesium AST Troponin I - Diagnostic Findings Chest x-ray: image reviewed Assessment and Plan Plan: Assessment 1 altered mentation along with fever. Rule out underlying septicemia nontender the patient had possible cultures on outpatient basis. The exact source of the infection is not clear. The patient will be started on a combination of Rocephin and vancomycin pending further cultures. Currently hemodynamically stable. Mental status is improving. The patient will be moved to the intensive care unit for further monitoring. 2 acute febrile illness on that investigation 3 coronary artery disease status post angioplasty of the ramus intermedius branch 4 End stage renal disease on hemodialysis, compliant to the treatment and last dialysis was approximately 2 days ago, the patient will be having dialysis today 5 diabetes mellitus with poorly controlled blood sugars currently on insulin drip for blood sugar control the patient had some ketones and mild anion gap metabolic acidosis with an anion gap of 23 6 hypertensive with a poorly controlled blood pressure 7 hyperlipidemia 8 CVA/TIA 9 previous history of GI bleeding 10. peripheral Vascular disease 11 diverticulosis 12 osteoarthritis 13 CHF with a component of fluid overload/pulmonary edema with elevated BNP level. The patient is not having any major respiratory distress and the patient will be having dialysis today. BNP level has been chronically elevated Plan Continue Rocephin and vancomycin treatments. Vancomycin doses being adjusted by pharmacy. Awaiting results of the blood cultures. Obtain a copy of the blood culture that was obtained at the dialysis center. Restart and evaluation with warfarin. Outpatient medication will resume. The patient is on insulin drip for blood sugar control. We'll continue the insulin drip for now, and monitor the electrolytes and anion gap. The patient is a component of diabetic ketoacidosis at this point. We'll keep the insulin drip as long as the patient still has an anion gap and the patient is not eating normally for now. For all this reasons, the patient was moved to the intensive care unit. Nephrology will be evaluating this patient. We'll continue to follow.
[2017-01-17 14:06] LABS: Glucose,Whole Blood 170 mg/dL (75-99)
[2017-01-17 15:05] LABS: Calcium 8.3 mg/dL (8.4-10.2); Phosphorus 5.2 mg/dL (2.5-4.5); Potassium 3.8 mmol/L (3.5-5.1)
[2017-01-17 16:23] LABS: Glucose,Whole Blood 92 mg/dL (75-99)
[2017-01-17 17:13] LABS: Iron Saturation 14.14 (12.00-45.00)
[2017-01-17] MEDS ORDERED: GELATIN SPONGE,ABSORB (SMALL) 1 EACH SPONGE ONE (17:15)
--- NOTE | 2017-01-17 17:27 | P.CONS ---
History of Present Illness - Reason for Consult Consult date: 01/17/17 - Chief Complaint Sepsis - History of Present Illness 57-year-old Afro-[place] female presents to the emergency center because there was difficulties with her mental status. The family relate that she developed confusion and was quite lethargic. She has a long-standing history of end- stage renal disease on hemodialysis through the local dialysis center in our community. When she was at her last dialysis center they were concerned that she had evidence of sepsis and was given a dose of vancomycin. Other notation of developing some diarrhea she was feeling relatively well until the onset of the significant altered mentation as well as a high-grade fever. Consult her family brought her to the emergency center where she was admitted at the present time with a temperature of 100 medical floor but had worsening of her status developed evidence of diabetic ketoacidosis was transferred to the intensive care unit. Because of ongoing sepsis infectious diseases consultation was requested. The patient currently has been seen by the dialysis nurse dialysis has started. And quite surprising with the start of dialysis she's not feeling considerably better. She was awake alert oriented to person and place. She remembers the dialysis nurses name without difficulty. She was able to relate the current history. Nursing staff relates that a few hours ago she was unable to give any history at all. At this time she just feels poorly with a high-grade fever. She has some generalized body ache. Her appetite is been poor. She has some nausea without emesis. She's had a bit of a headache and it's not severe at this point in time. She's had no rigor. Review of Systems 57-year-old woman who is much more comfortable than a few hours ago HEENT:Denies headache or acute visual change. Denies sinus or mouth discomforts. Denies neck stiffness or pain. Denies significant oral cavity pain. Denies difficulty on swallowing. Lungs: Denies significant shortness of breath, cough, sputum production, or hemoptysis. Cardiovascular: Denies significant shortness of breath, chest pain, chest wall pain, orthopnea, dyspnea on exertion, syncope Gastrointestinal:Denies nausea, vomiting, diarrhea, constipation, hematemesis, melena, hematochezia. No no significant change of bowel habit noticed. Musculoskeletal: denies significant myalgias or arthralgias. No new joint swelling. Denies new back pain. Skin: Denies new rash or lesions. No new ulcers or wounds are related.. Neuro: As per the HPI but denies acute new neurological changes at this time Psychiatric:Denies anxiety or depression. Endocrine: Has difficulties with chronic fatigue but her weight is been stable. Urologic: Patient relates that she does make urine on a daily basis. Relatively small amount. There is been no skin changed her urine as of late. Past Medical History Past Medical History: Atrial Fibrillation, Coronary Artery Disease (CAD), Heart Failure, CVA/TIA, Diabetes Mellitus, GERD/Reflux, GI Bleed, Hyperlipidemia, Osteoarthritis (OA), Pneumonia, Renal Disease, Vascular Disorder Additional Past Medical History / Comment(s): Coronary artery disease, preserved LV function with an ejection fraction of 55% and moderate degree of MR , IDDM type II, End stage renal failure with hemodialysis MWF-on kidney transplant list thru [facility], CVA 2007 with some peripheral vision problems R eye and R ear EGEGIK, lower GI bleed, PAD, DJD, diverticulosis, pancreatitis, bronchitis, TMJ, sinus problems at times, UTIs, benign polypectomies, anemia. History of Any Multi-Drug Resistant Organisms: None Reported Past Surgical History: Cholecystectomy, Heart Catheterization, Heart Catheterization With Stent, Hysterectomy Additional Past Surgical History / Comment(s): L upper arm for dialysis cath, 3 Cardiac stents, one stent rt leg, EGD/colonoscopies/benign polypectomies , bilateral cataract removal, laser sx bilateral eyes for retinopathy, D&C, left axillary I&D Past Anesthesia/Blood Transfusion Reactions: Motion Sickness, Postoperative Nausea & Vomiting (PONV) Additional Past Anesthesia/Blood Transfusion Reaction / Comm: Pt has received blood in the past without reaction. Date of Last Stent Placement:: 09/22/13 Past Psychological History: No Psychological Hx Reported Additional Psychological History / Comment(s): Pt resides with her spouse. She is normally independent.lives in a single level home that has 3 front steps. no pets. no home care services. has a glucometer, bp monitor. She does not work outside of the home. She does not have experience. Denies international travel. Denies recreational drug use. Denies alcohol utilization or tobacco use Smoking Status: Never smoker Past Alcohol Use History: Occasional Additional Past Alcohol Use History / Comment(s): Pt smoked from 1984 to 2012. 2 PPD Past Drug Use History: None Reported - Past Family History Mother Family Medical History: No Reported History Additional Family Medical History / Comment(s): Mother is 76 yrs old. Father Family Medical History: Diabetes Mellitus Additional Family Medical History / Comment(s): Father at the age of 42yrs- pt does not know reason. Medications and Allergies Home Medications and Allergies Comment(s): Current Medications Albuterol Sulfate (Ventolin Nebulized) 2.5 mg INHALATION RT-BID PRN PRN Reason: Shortness Of Breath Alprazolam (Xanax) 0.25 mg PO HS PRN PRN Reason: Insomnia Amlodipine Besylate (Norvasc) 5 mg PO DAILY [facility] Last Admin: 01/17/17 13:22 Dose: Not Given Aspirin (Aspirin) 81 mg PO DAILY [facility] Last Admin: 01/17/17 13:22 Dose: 81 mg Atorvastatin Calcium (Lipitor) 40 mg PO HS [facility] Ceftriaxone Sodium (Rocephin) 1,000 mg IVP Q24HR [facility] Clopidogrel Bisulfate (Plavix) 75 mg PO DAILY [facility] Last Admin: 01/17/17 13:23 Dose: 75 mg Furosemide (Lasix) 80 mg PO BID [facility] Last Admin: 01/17/17 13:16 Dose: Not Given Gabapentin (Neurontin) 100 mg PO TID [facility] Last Admin: 01/17/17 13:08 Dose: Not Given Insulin Human Regular 100 unit (/ Sodium Chloride) 101 mls @ 7.32 mls/hr IV .[id number] [facility]; 0.1 UNITS/KG/HR PRN Reason: Protocol Last Titration: 01/17/17 16:22 Dose: 0 units/kg/hr, 0 mls/hr Metoprolol Succinate (Toprol Xl) 50 mg PO DAILY [facility] Midodrine (Proamatine) 5 mg PO MoWeFr@0900 [facility] Miscellaneous Information (Pharmacy To Dose Iv Vancomycin) 1 each MISCELLANE DIRECTED PRN PRN Reason: Per Protocol Multivit/Ca Carb/B Cmplx/FA/Prenat (Nephrocaps) 1 each PO DAILY [facility] Last Admin: 01/17/17 13:23 Dose: 1 each Temazepam (Restoril) 15 mg PO HS PRN PRN Reason: Insomnia Warfarin Sodium (Coumadin) 5 mg PO HS@1800 [facility] Last Admin: 01/16/17 19:53 Dose: Not Given Home Medications Medication Instructions Recorded Confirmed Type Furosemide [Lasix] 80 mg PO BID 09/17/13 01/15/17 History Albuterol Inhaler [Ventolin Hfa 1 puff INHALATION RT-BID PRN 02/12/16 01/15/17 History Inhaler] Clopidogrel [Plavix] 75 mg PO DAILY tab 02/16/16 01/15/17 Rx Atorvastatin [Lipitor] 40 mg PO HS 07/16/16 01/15/17 History Insulin Aspart [NovoLOG Flexpen] See Protocol SQ AC-TID 07/16/16 01/15/17 History ALPRAZolam [Xanax] 0.25 mg PO HS PRN 07/29/16 01/15/17 History Aspirin EC [Ecotrin Low Dose] 81 mg PO DAILY 10/30/16 01/15/17 History Folic Acid-Vit B Complex-Vit C 1 cap PO DAILY 10/30/16 01/15/17 History [Nephrocaps] Nitroglycerin Sl Tabs [Nitrostat] 0.4 mg SUBLINGUAL Q5M PRN 10/30/16 01/15/17 History Sevelamer [Renvela] 2,400 mg PO AC-TID 10/30/16 01/15/17 History amLODIPine [Norvasc] 5 mg PO DAILY 10/30/16 01/15/17 History Temazepam [Restoril] 15 mg PO HS PRN #15 cap 11/01/16 01/15/17 Rx Metoprolol Succinate (ER) [Toprol 50 mg PO DAILY 11/26/16 01/15/17 History XL] Darbepoetin Doroteo [Aranesp] 40 mcg SQ Q7D syr 12/01/16 01/15/17 Rx Insulin Glargine,Hum.rec.anlog 38 unit SQ HS 01/01/17 01/15/17 History [Lantus Solostar] Warfarin [Coumadin] 5 mg PO HS@1800 01/01/17 01/15/17 History Gabapentin [Neurontin] 100 mg PO TID 01/02/17 01/15/17 History Midodrine [ProAmatine] 5 mg PO MoWeFr@0900 tab 01/05/17 01/15/17 Rx Spironolactone [Aldactone] 25 mg PO DAILY #30 tab 01/05/17 01/15/17 Rx Allergies Allergy/AdvReac Type Severity Reaction Status Date / Time clonidine Allergy Anaphylaxis Verified 01/15/17 16:14 Iodinated Contrast- Oral and Allergy Anaphylaxis Verified 01/15/17 16:14 IV Dye iodine Allergy Anaphylaxis Verified 01/15/17 16:14 Penicillins Allergy Rash/Hives Verified 01/15/17 16:14 shellfish derived Allergy Anaphylaxis Verified 01/15/17 16:14 Physical Exam Vitals: Vital Signs Temp Pulse Pulse Resp BP BP Pulse Ox 01/17/17 17:00 90 29 H 144/55 100 01/17/17 16:45 94 29 H 144/55 100 01/17/17 16:30 98.3 F 93 28 H 144/55 100 01/17/17 16:00 96 90 28 H 144/55 100 01/17/17 15:00 93 26 H 134/52 100 01/17/17 14:00 102.7 F H 91 17 115/45 100 01/17/17 11:20 98.9 F 91 20 143/65 100 01/17/17 08:00 101 F H 100 24 130/59 97 01/17/17 04:40 140 H 18 141/59 95 01/17/17 04:00 99.6 F 94 18 130/57 100 01/17/17 00:00 99.2 F 90 18 106/50 97 01/16/17 21:47 96 01/16/17 20:00 102.1 F H 96 18 136/61 98 Intake and Output 01/17/17 01/17/17 01/17/17 06:59 14:59 22:59 Intake Total 23.173 93.143 33.09 Output Total 60 Balance 23.173 33.143 33.09 Intake: IV 10 20 0.9 KVO 10 20 Intake, IV Titration 23.173 83.143 13.09 Amount Insulin Regular 100 unit 23.173 3.143 13.09 In Sodium Chloride 0.9% 100 ml @ 0.1 UNITS/KG/HR 7.32 mls/hr IV .[id number] [facility] Rx#:[id number] Sodium Chloride 0.9% 1, 80 000 ml @ 100 mls/hr IV . Q10H ONE Rx#:[id number] Output: Urine 60 Other: Voiding Method Diaper # Voids 0 0 Weight 68.5 kg 68.5 kg Patient Weight 11/05/17 05:59 Weight 68.5 kg Pleasant 57-year-old woman who is quite comfortable at this time. She's feeling better now than she has in several days. HEENT: Anicteric conjunctiva are pink and moist nasal mucosa grossly intact without significant lesions, there is no thrush. Evidence of bilateral cataract extraction and lens implantation Neck: The neck is supple without significant lymphadenopathy or thyromegaly. Lungs: They're symmetrical air entry, there is evidence of only few basilar crackles. No bronchial sounds are heard. No dullness or egophony. Heart: Regular rate and rhythm with an audible S1-S2, no S3 soft S4 and the home of the fistula is easily heard. There is no significant murmur click or rub, PMI was nondisplaced. Abdomen: Positive bowel sounds soft and nontender without palpable masses or organomegaly. There was no guarding or rebound. Extremities: The upper extremities have excellent pulses they are symmetric, no significant petechiae or telangiectasia. No splinter hemorrhages were noted. The lower extremities are free from significant edema. The peripheral pulses were 2+ and symmetric. Neuro: Patient is now much more awake and alert. Shorted to person and place. Is able to give a reasonably good history. This again is considerably improved from just a few hours ago. Dialysis nurse relates no difficulties with hypotension Results CBC & Chem 7: 01/17/17 07:56 01/17/17 14:30 Labs: Abnormal Lab Results - Last 24 Hours (Table) 01/16/17 01/16/17 01/16/17 Range/Units 18:40 21:48 22:20 RBC (3.80-5.40) m/uL Hgb (11.4-16.0) gm/dL Hct (34.0-46.0) % MCV (80.0-100.0) fL MCHC (31.0-37.0) g/dL RDW (11.5-15.5) % Lymphocytes # (1.0-4.8) k/uL Sodium 134 L (137-145) mmol/L Carbon Dioxide 19 L (22-30) mmol/L BUN 49 H (7-17) mg/dL Creatinine 7.70 H* (0.52-1.04) mg/dL Glucose 239 H (74-99) mg/dL POC Glucose (mg/dL) 237 H 244 H (75-99) mg/dL Calcium 8.2 L (8.4-10.2) mg/dL Phosphorus 5.0 H (2.5-4.5) mg/dL 01/16/17 01/16/17 01/17/17 Range/Units 23:00 23:59 01:01 RBC (3.80-5.40) m/uL Hgb (11.4-16.0) gm/dL Hct (34.0-46.0) % MCV (80.0-100.0) fL MCHC (31.0-37.0) g/dL RDW (11.5-15.5) % Lymphocytes # (1.0-4.8) k/uL Sodium (137-145) mmol/L Carbon Dioxide (22-30) mmol/L BUN (7-17) mg/dL Creatinine (0.52-1.04) mg/dL Glucose (74-99) mg/dL POC Glucose (mg/dL) 192 H 133 H 123 H (75-99) mg/dL Calcium (8.4-10.2) mg/dL Phosphorus (2.5-4.5) mg/dL 01/17/17 01/17/17 01/17/17 Range/Units 01:57 04:03 05:11 RBC (3.80-5.40) m/uL Hgb (11.4-16.0) gm/dL Hct (34.0-46.0) % MCV (80.0-100.0) fL MCHC (31.0-37.0) g/dL RDW (11.5-15.5) % Lymphocytes # (1.0-4.8) k/uL Sodium (137-145) mmol/L Carbon Dioxide (22-30) mmol/L BUN (7-17) mg/dL Creatinine (0.52-1.04) mg/dL Glucose (74-99) mg/dL POC Glucose (mg/dL) 105 H 103 H 141 H (75-99) mg/dL Calcium (8.4-10.2) mg/dL Phosphorus (2.5-4.5) mg/dL 01/17/17 01/17/17 01/17/17 Range/Units 05:37 06:02 07:01 RBC (3.80-5.40) m/uL Hgb (11.4-16.0) gm/dL Hct (34.0-46.0) % MCV (80.0-100.0) fL MCHC (31.0-37.0) g/dL RDW (11.5-15.5) % Lymphocytes # (1.0-4.8) k/uL Sodium 136 L (137-145) mmol/L Carbon Dioxide 15 L (22-30) mmol/L BUN 55 H (7-17) mg/dL Creatinine 8.70 H* (0.52-1.04) mg/dL Glucose 207 H (74-99) mg/dL POC Glucose (mg/dL) 186 H 178 H (75-99) mg/dL Calcium (8.4-10.2) mg/dL Phosphorus (2.5-4.5) mg/dL 01/17/17 01/17/17 01/17/17 Range/Units 07:56 08:14 08:56 RBC 2.38 L (3.80-5.40) m/uL Hgb 7.4 L (11.4-16.0) gm/dL Hct 25.0 L (34.0-46.0) % MCV 104.9 H D (80.0-100.0) fL MCHC 29.6 L (31.0-37.0) g/dL RDW 18.7 H (11.5-15.5) % Lymphocytes # 0.3 L (1.0-4.8) k/uL Sodium (137-145) mmol/L Carbon Dioxide (22-30) mmol/L BUN (7-17) mg/dL Creatinine (0.52-1.04) mg/dL Glucose (74-99) mg/dL POC Glucose (mg/dL) 267 H 238 H (75-99) mg/dL Calcium (8.4-10.2) mg/dL Phosphorus (2.5-4.5) mg/dL 01/17/17 01/17/17 01/17/17 Range/Units 10:23 11:21 12:20 RBC (3.80-5.40) m/uL Hgb (11.4-16.0) gm/dL Hct (34.0-46.0) % MCV (80.0-100.0) fL MCHC (31.0-37.0) g/dL RDW (11.5-15.5) % Lymphocytes # (1.0-4.8) k/uL Sodium (137-145) mmol/L Carbon Dioxide (22-30) mmol/L BUN (7-17) mg/dL Creatinine (0.52-1.04) mg/dL Glucose (74-99) mg/dL POC Glucose (mg/dL) 269 H 235 H 205 H (75-99) mg/dL Calcium (8.4-10.2) mg/dL Phosphorus (2.5-4.5) mg/dL 01/17/17 01/17/17 01/17/17 Range/Units 12:58 14:05 14:30 RBC (3.80-5.40) m/uL Hgb (11.4-16.0) gm/dL Hct (34.0-46.0) % MCV (80.0-100.0) fL MCHC (31.0-37.0) g/dL RDW (11.5-15.5) % Lymphocytes # (1.0-4.8) k/uL Sodium 136 L (137-145) mmol/L Carbon Dioxide 20 L (22-30) mmol/L BUN 66 H (7-17) mg/dL Creatinine 9.94 H* (0.52-1.04) mg/dL Glucose 178 H (74-99) mg/dL POC Glucose (mg/dL) 210 H 170 H (75-99) mg/dL Calcium 8.3 L (8.4-10.2) mg/dL Phosphorus 5.2 H (2.5-4.5) mg/dL Microbiology - Last 24 Hours (Table) 01/15/17 16:11 Blood Culture - Preliminary Blood No Growth after 24 hours Laboratory Results WBC 5.5 k/uL (3.8-10.6) 01/17/17 07:56 RBC 2.38 m/uL (3.80-5.40) L 01/17/17 07:56 Hgb 7.4 gm/dL (11.4-16.0) L 01/17/17 07:56 Hct 25.0 % (34.0-46.0) L 01/17/17 07:56 MCV 104.9 fL (80.0-100.0) H D 01/17/17 07:56 MCH 31.0 pg (25.0-35.0) 01/17/17 07:56 MCHC 29.6 g/dL (31.0-37.0) L 01/17/17 07:56 RDW 18.7 % (11.5-15.5) H 01/17/17 07:56 Plt Count 217 k/uL (150-450) 01/17/17 07:56 Neutrophils % 90 % 01/17/17 07:56 Lymphocytes % 6 % 01/17/17 07:56 Monocytes % 3 % 01/17/17 07:56 Eosinophils % 0 % 01/17/17 07:56 Basophils % 0 % 01/17/17 07:56 Neutrophils # 4.9 k/uL (1.3-7.7) 01/17/17 07:56 Lymphocytes # 0.3 k/uL (1.0-4.8) L 01/17/17 07:56 Monocytes # 0.2 k/uL (0-1.0) 01/17/17 07:56 Eosinophils # 0.0 k/uL (0-0.7) 01/17/17 07:56 Basophils # 0.0 k/uL (0-0.2) 01/17/17 07:56 Polychromasia Present 01/17/17 07:56 Hypochromasia Marked 01/17/17 07:56 Anisocytosis Slight 01/17/17 07:56 Macrocytosis Marked 01/17/17 07:56 PT 10.8 sec (9.0-12.0) 01/17/17 05:37 INR 1.1 (<1.2) 01/17/17 05:37 APTT 23.0 sec (22.0-30.0) 01/15/17 16:11 Sample Site r rad 01/16/17 16:17 ABG pH 7.49 (7.35-7.45) H 01/16/17 16:17 ABG pCO2 29 mmHg (35-45) L 01/16/17 16:17 ABG pO2 79 mmHg (83-108) L 01/16/17 16:17 ABG HCO3 22 mmol/L (21-25) 01/16/17 16:17 ABG Total CO2 23 mmol/L (19-24) 01/16/17 16:17 ABG O2 Saturation 96.8 % (94-97) 01/16/17 16:17 ABG Base Excess -0.7 mmol/L 01/16/17 16:17 FiO2 45 % 01/16/17 16:17 Sodium 136 mmol/L (137-145) L 01/17/17 14:30 Potassium 3.8 mmol/L (3.5-5.1) 01/17/17 14:30 Chloride 100 mmol/L (98-107) 01/17/17 14:30 Carbon Dioxide 20 mmol/L (22-30) L 01/17/17 14:30 Anion Gap 16 mmol/L 01/17/17 14:30 BUN 66 mg/dL (7-17) H 01/17/17 14:30 Creatinine 9.94 mg/dL (0.52-1.04) H* 01/17/17 14:30 Est GFR (MDRD) Af Amer 5 (>60 ml/min/1.73 sqM) 01/17/17 14:30 Est GFR (MDRD) Non-Af 4 (>60 ml/min/1.73 sqM) 01/17/17 14:30 Glucose 178 mg/dL (74-99) H 01/17/17 14:30 POC Glucose (mg/dL) 92 mg/dL (75-99) 01/17/17 16:21 POC Glu Fixed Route Operator ID Laverne Velázquez 01/17/17 16:21 Plasma Lactic Acid Tomas 1.7 mmol/L (0.7-2.0) 01/17/17 07:48 Calcium 8.3 mg/dL (8.4-10.2) L 01/17/17 14:30 Phosphorus 5.2 mg/dL (2.5-4.5) H 01/17/17 14:30 Magnesium 2.0 mg/dL (1.6-2.3) 01/16/17 22:20 Total Bilirubin 0.5 mg/dL (0.2-1.3) 01/15/17 16:11 AST 42 U/L (14-36) H 01/15/17 16:11 ALT 37 U/L (9-52) 01/15/17 16:11 Alkaline Phosphatase 98 U/L (38-126) 01/15/17 16:11 Ammonia <9 umol/L (<30) 01/16/17 22:20 Total Creatine Kinase 76 U/L (30-135) 01/15/17 16:11 CK-MB (CK-2) 0.8 ng/mL (0.0-2.4) 01/15/17 16:11 CK-MB (CK-2) Rel Index 1.1 01/15/17 16:11 Troponin I 0.182 ng/mL (0.000-0.034) H* 01/16/17 03:13 NT-Pro-B Natriuret Pep [id number] pg/mL 01/16/17 08:00 Total Protein 6.5 g/dL (6.3-8.2) 01/15/17 16:11 Albumin 3.7 g/dL (3.5-5.0) 01/15/17 16:11 Random Vancomycin 32.7 ug/mL 01/17/17 05:37 Acetone, Qual Positive (Negative) 01/16/17 08:00 Influenza Type A RNA Not Detected (Not Detectd) 01/15/17 15:50 Influenza Type B (PCR) Not Detected (Not Detectd) 01/15/17 15:50 Microbiology 01/15/17 16:11 Blood Blood Culture - Preliminary No Growth after 24 hours Assessment and Plan (1) Altered mental status Current Visit: Yes Status: Acute Code(s): R41.82 - ALTERED MENTAL STATUS, UNSPECIFIED SNOMED Code(s): 125456696 (2) Sepsis Narrative/Plan: 57-year-old female presents to emergency center with her family because of some altered mentation. At presentation is evidence of fever and concerns for sepsis. There is some data that is provided that at the dialysis center she had evidence of a positive blood culture. Intravenous antibiotic therapy was initiated the dialysis center with vancomycin. She's now presented to Hospital. There is evidence of worsening of her status. She developed diabetic ketoacidosis which further worsened her metabolic state. He also worsened her neurological state. Her DKA is now under much better control and insulin drip is newly turned off. The gap is closed. And she started to feel considerably better. However this ongoing concerns underlying sepsis. With her dialysis status vancomycin is appropriate however we'll alter ceftriaxone to ceftazidime ensure that were covering for Pseudomonas which is a more common pathogen in this population. Follow-up cultures are in process. Her DKA is being actively treated insulin drip is being currently tapered at this time. Enforcing is having a marked improvement in overall status. Nephrology is following and will address her significant anemia. Current Visit: Yes Status: Acute Code(s): A41.9 - SEPSIS, UNSPECIFIED ORGANISM SNOMED Code(s): 08576595 (3) DKA (diabetic ketoacidoses) Current Visit: No Status: Acute Code(s): E13.10 - OTH DIABETES MELLITUS WITH KETOACIDOSIS WITHOUT COMA SNOMED Code(s): 036126274 (4) Chronic kidney disease with end stage renal failure on dialysis Current Visit: Yes Status: Acute Code(s): N18.6 - END STAGE RENAL DISEASE; Z99.2 - DEPENDENCE ON RENAL DIALYSIS SNOMED Code(s): 446971584
[2017-01-17 17:37] LABS: Glucose,Whole Blood 61 mg/dL (75-99)
[2017-01-17 18:12] LABS: Glucose,Whole Blood 64 mg/dL (75-99)
[2017-01-17] MEDS: WARFARIN 5 MG TAB PO SCH (18:24)
[2017-01-17 18:39] LABS: Glucose,Whole Blood 116 mg/dL (75-99)
[2017-01-17 20:20] LABS: Glucose,Whole Blood 236 mg/dL (75-99)
[2017-01-17 21:16] LABS: Glucose,Whole Blood 276 mg/dL (75-99)
[2017-01-17] MEDS: ATORVASTATIN 40 MG TAB PO SCH (21:31)
[2017-01-17 21:40] LABS: Glucose,Whole Blood 260 mg/dL (75-99)
[2017-01-17 22:10] LABS: Glucose,Whole Blood 238 mg/dL (75-99)
--- NOTE | 2017-01-17 22:49 | P.PN ---
Subjective Progress Note Date: 01/17/17 Principal diagnosis: Sepsis Patient is a 56-year-old female with a past medical history of ESRD on hemodialysis MWF via AV graft, hypertension, diabetes type 2 history of coronary disease and recently diagnosed atrial fibrillation and was started on anticoagulation with Coumadin presented to the ER due to altered mental status. Patient had hemodialysis last night. Patient was supposed to be confused at the time. Patient woke up next morning with more confusion and also noted to have fevers. Patient's family member says that blood culture set dialysis Center showed infection and patient was sent to Hospital. Otherwise patient seems to be lethargic and confused but oriented 2. Denied any complaints of chest pain or short of breath. No nausea or nausea vomiting or diarrhea. Patient had one episode of diarrhea and C. diff was sent. Today afternoon patient became more confused and shortness of breath requiring oxygen. Patient was placed on Ventimask and repeat labs were attempted but could not get IV access. Patient was placed on telemetry monitoring and ABGs will be obtained. Patient had hemodialysis today. Chest x-ray on admission showed fluid overload BNP greater than 80,000 on admission. Patient was recently admitted to the hospital with a GI bleed/darker stools. Patient was started back on anti-coagulation after a week and current hemoglobin is 7.9. Otherwise patient does not have any fever or chills now . Blood cultures were sent. No leukocytosis noted. Patient was found to have hyperglycemia and was started on insulin drip. Her gap 23 and bicarbonate 19. Acetone positive. 01/17/2017 Patient seems to be confused on and off. Patient currently is to be febrile today. Blood cultures are negative so far. Patient denied any worsening short of breath. No complaints of chest pain. No diarrhea no abdominal pain. Anion gap closed. Insulin drip has been discontinued. Patient will be transferred to MICU due to patient condition of fever and altered mental status. All other review of systems negative except the above Current medications reviewed Objective - Vital Signs Vital signs: Vital Signs Temp 103 F H 01/17/17 19:00 Pulse 98 01/17/17 19:00 Resp 29 H 01/17/17 19:00 BP 138/55 01/17/17 19:00 Pulse Ox 100 01/17/17 20:37 Intake & Output 01/17/17 01/17/17 01/18/17 06:59 18:59 05:59 Intake Total 23.173 146.233 100.133 Output Total 60 2500 Balance 23.173 86.233 -2399.867 Weight 68.5 kg 68.5 kg Intake: IV 50 0.9 KVO 50 Intake, IV Titration 23.173 96.233 100.133 Amount Insulin Regular 100 unit 23.173 16.233 0.133 In Sodium Chloride 0.9% 100 ml @ 0.1 UNITS/KG/HR 7.32 mls/hr IV .[id number] [facility] Rx#:[id number] Sodium Chloride 0.9% 1, 80 000 ml @ 100 mls/hr IV . Q10H ONE Rx#:[id number] cefTAZidime 1 gm In 100 Sodium Chloride 0.9% 50 ml @ 100 mls/hr IVPB ONCE STA Rx#:[id number] Output: Urine 60 Other 2500 Other: Voiding Method Diaper # Voids 0 0 - Exam PHYSICAL EXAMINATION: Patient is lying in the bed comfortably, no acute distress, awake alert but confused and is oriented. HEENT: Normocephalic. Neck is supple. Pupils reactive. Nostrils clear. Oral cavity is moist. Ears reveal no drainage. Neck reveals no JVD, carotid bruits, or thyromegaly. CHEST EXAMINATION: Trachea is central. Symmetrical expansion. Bilateral diminished air entry basally. No wheezing CARDIAC: Normal S1, S2 with no gallops. No murmurs ABDOMEN: Soft. Bowel sounds normal. No organomegaly. No abdominal bruits. Extremities: reveal no edema. No clubbing or cyanosis Neurologically awake, alert, oriented x3 with well-coordinated movements. No focal deficits noted Skin: No rash or skin lesions. Psychiatric: Operative. Nonsuicidal Musculoskeletal: No joint swelling or deformity. Normal range of motion. - Labs CBC & Chem 7: 01/17/17 07:56 01/17/17 14:30 Labs: Abnormal Lab Results - Last 24 Hours (Table) 01/16/17 01/16/17 01/16/17 Range/Units 21:48 22:20 23:00 RBC (3.80-5.40) m/uL Hgb (11.4-16.0) gm/dL Hct (34.0-46.0) % MCV (80.0-100.0) fL MCHC (31.0-37.0) g/dL RDW (11.5-15.5) % Lymphocytes # (1.0-4.8) k/uL Sodium 134 L (137-145) mmol/L Carbon Dioxide 19 L (22-30) mmol/L BUN 49 H (7-17) mg/dL Creatinine 7.70 H* (0.52-1.04) mg/dL Glucose 239 H (74-99) mg/dL POC Glucose (mg/dL) 244 H 192 H (75-99) mg/dL Calcium 8.2 L (8.4-10.2) mg/dL Phosphorus 5.0 H (2.5-4.5) mg/dL 01/16/17 01/17/17 01/17/17 Range/Units 23:59 01:01 01:57 RBC (3.80-5.40) m/uL Hgb (11.4-16.0) gm/dL Hct (34.0-46.0) % MCV (80.0-100.0) fL MCHC (31.0-37.0) g/dL RDW (11.5-15.5) % Lymphocytes # (1.0-4.8) k/uL Sodium (137-145) mmol/L Carbon Dioxide (22-30) mmol/L BUN (7-17) mg/dL Creatinine (0.52-1.04) mg/dL Glucose (74-99) mg/dL POC Glucose (mg/dL) 133 H 123 H 105 H (75-99) mg/dL Calcium (8.4-10.2) mg/dL Phosphorus (2.5-4.5) mg/dL 01/17/17 01/17/17 01/17/17 Range/Units 04:03 05:11 05:37 RBC (3.80-5.40) m/uL Hgb (11.4-16.0) gm/dL Hct (34.0-46.0) % MCV (80.0-100.0) fL MCHC (31.0-37.0) g/dL RDW (11.5-15.5) % Lymphocytes # (1.0-4.8) k/uL Sodium 136 L (137-145) mmol/L Carbon Dioxide 15 L (22-30) mmol/L BUN 55 H (7-17) mg/dL Creatinine 8.70 H* (0.52-1.04) mg/dL Glucose 207 H (74-99) mg/dL POC Glucose (mg/dL) 103 H 141 H (75-99) mg/dL Calcium (8.4-10.2) mg/dL Phosphorus (2.5-4.5) mg/dL 01/17/17 01/17/17 01/17/17 Range/Units 06:02 07:01 07:56 RBC 2.38 L (3.80-5.40) m/uL Hgb 7.4 L (11.4-16.0) gm/dL Hct 25.0 L (34.0-46.0) % MCV 104.9 H D (80.0-100.0) fL MCHC 29.6 L (31.0-37.0) g/dL RDW 18.7 H (11.5-15.5) % Lymphocytes # 0.3 L (1.0-4.8) k/uL Sodium (137-145) mmol/L Carbon Dioxide (22-30) mmol/L BUN (7-17) mg/dL Creatinine (0.52-1.04) mg/dL Glucose (74-99) mg/dL POC Glucose (mg/dL) 186 H 178 H (75-99) mg/dL Calcium (8.4-10.2) mg/dL Phosphorus (2.5-4.5) mg/dL 01/17/17 01/17/17 01/17/17 Range/Units 08:14 08:56 10:23 RBC (3.80-5.40) m/uL Hgb (11.4-16.0) gm/dL Hct (34.0-46.0) % MCV (80.0-100.0) fL MCHC (31.0-37.0) g/dL RDW (11.5-15.5) % Lymphocytes # (1.0-4.8) k/uL Sodium (137-145) mmol/L Carbon Dioxide (22-30) mmol/L BUN (7-17) mg/dL Creatinine (0.52-1.04) mg/dL Glucose (74-99) mg/dL POC Glucose (mg/dL) 267 H 238 H 269 H (75-99) mg/dL Calcium (8.4-10.2) mg/dL Phosphorus (2.5-4.5) mg/dL 01/17/17 01/17/17 01/17/17 Range/Units 11:21 12:20 12:58 RBC (3.80-5.40) m/uL Hgb (11.4-16.0) gm/dL Hct (34.0-46.0) % MCV (80.0-100.0) fL MCHC (31.0-37.0) g/dL RDW (11.5-15.5) % Lymphocytes # (1.0-4.8) k/uL Sodium (137-145) mmol/L Carbon Dioxide (22-30) mmol/L BUN (7-17) mg/dL Creatinine (0.52-1.04) mg/dL Glucose (74-99) mg/dL POC Glucose (mg/dL) 235 H 205 H 210 H (75-99) mg/dL Calcium (8.4-10.2) mg/dL Phosphorus (2.5-4.5) mg/dL 01/17/17 01/17/17 01/17/17 Range/Units 14:05 14:30 17:35 RBC (3.80-5.40) m/uL Hgb (11.4-16.0) gm/dL Hct (34.0-46.0) % MCV (80.0-100.0) fL MCHC (31.0-37.0) g/dL RDW (11.5-15.5) % Lymphocytes # (1.0-4.8) k/uL Sodium 136 L (137-145) mmol/L Carbon Dioxide 20 L (22-30) mmol/L BUN 66 H (7-17) mg/dL Creatinine 9.94 H* (0.52-1.04) mg/dL Glucose 178 H (74-99) mg/dL POC Glucose (mg/dL) 170 H 61 L (75-99) mg/dL Calcium 8.3 L (8.4-10.2) mg/dL Phosphorus 5.2 H (2.5-4.5) mg/dL 01/17/17 01/17/17 01/17/17 Range/Units 18:09 18:38 20:17 RBC (3.80-5.40) m/uL Hgb (11.4-16.0) gm/dL Hct (34.0-46.0) % MCV (80.0-100.0) fL MCHC (31.0-37.0) g/dL RDW (11.5-15.5) % Lymphocytes # (1.0-4.8) k/uL Sodium (137-145) mmol/L Carbon Dioxide (22-30) mmol/L BUN (7-17) mg/dL Creatinine (0.52-1.04) mg/dL Glucose (74-99) mg/dL POC Glucose (mg/dL) 64 L 116 H 236 H (75-99) mg/dL Calcium (8.4-10.2) mg/dL Phosphorus (2.5-4.5) mg/dL 01/17/17 01/17/17 01/17/17 Range/Units 21:13 21:39 22:09 RBC (3.80-5.40) m/uL Hgb (11.4-16.0) gm/dL Hct (34.0-46.0) % MCV (80.0-100.0) fL MCHC (31.0-37.0) g/dL RDW (11.5-15.5) % Lymphocytes # (1.0-4.8) k/uL Sodium (137-145) mmol/L Carbon Dioxide (22-30) mmol/L BUN (7-17) mg/dL Creatinine (0.52-1.04) mg/dL Glucose (74-99) mg/dL POC Glucose (mg/dL) 276 H 260 H 238 H (75-99) mg/dL Calcium (8.4-10.2) mg/dL Phosphorus (2.5-4.5) mg/dL Microbiology - Last 24 Hours (Table) 01/15/17 16:11 Blood Culture - Preliminary Blood No Growth after 48 hours Assessment and Plan Assessment: #1 fever. Rule out infection. Patient had positive blood cultures at dialysis central. Influenza negative. Chest x-ray showed fluid overload no infiltrates noted. Urine culture was ordered. Patient does not have any cough or sputum production. Blood cultures were sent. Currently patient is febrile. We'll follow up on culture reports. C. diff toxin was sent. #2 altered mental status/metabolic encephalopathy likely due to infection and electrolyte abnormality #3 mild DKA. Patient was started on insulin drip. AG-16 and a acetone positive. Resolving now #2 recent Dark colored stools due to GI bleed. Hemoglobin 7.9 on admission. Will follow H&H. Patient has been started on Coumadin. #2 paroxysmal atrial fibrillation on anticoagulation with Coumadin #3 ESRD on hemo-dialysis. Left AV graft. Thursday was decided #3 history of coronary artery disease status post stent placement #5. Anemia of chronic disease on epogen #6 elevated troponin level. Unlikely acute VT #7 diabetes type 2 uncontrolled with A1c 8.4 #8 hypertension #9 history of GI bleed in November 2015. Status post coloscopy and found to have AVM Plan: Patient had hemodialysis done on Thursday. Insulin drip was discontinued and currently on insulin regimen.. We will continue the antibiotics in the form of vancomycin and ceftazidime has been added to cover Pseudomonas as well.. Stool for C. diff was sent. Will follow-up blood cultures and urine cultures. Nephrology is on board. Will monitor H&H. Further recommendations based on the clinical course. Prognosis is guarded with multiple medical problems and comorbid conditions discussed with family in detail at bedside. Time with Patient: Greater than 30
[2017-01-17 23:06] LABS: Glucose,Whole Blood 156 mg/dL (75-99)
[2017-01-18] MEDS ORDERED: ACETAMINOPHEN IV (For NPO) 1,000 MG in EMPTY BAG 1 BAG IVPB SCH
[2017-01-18 00:18] LABS: Glucose,Whole Blood 137 mg/dL (75-99)
[2017-01-18 00:52] LABS: Glucose,Whole Blood 131 mg/dL (75-99)
[2017-01-18 01:59] LABS: Glucose,Whole Blood 105 mg/dL (75-99)
[2017-01-18 02:00] LABS: Glucose,Whole Blood 114 mg/dL (75-99)
[2017-01-18 03:12] LABS: Glucose,Whole Blood 80 mg/dL (75-99)
[2017-01-18 03:56] LABS: Glucose,Whole Blood 140 mg/dL (75-99)
[2017-01-18] MEDS: ACETAMINOPHEN IVPB PRN ×2 (03:58→12:26)
[2017-01-18 05:08] LABS: Glucose,Whole Blood 218 mg/dL (75-99)
[2017-01-18] MEDS: INSULIN REGULAR 100 UNIT in SODIUM CHLORIDE 0.9% 100 ML IV SCH ×2 (05:11→14:31)
[2017-01-18 06:19] LABS: Anisocytosis Slight; CH 30.1; CHCM 30.4; HCT 24.8 % (34.0-46.0); HDW 2.78; HGB 7.8 gm/dL (11.4-16.0); Hypochromasia Moderate; MCH 31.2 pg (25.0-35.0); MCHC 31.4 g/dL (31.0-37.0); Macrocytosis Moderate; Mean Platelet Volume 9.5; RBC 2.49 m/uL (3.80-5.40); RDW 19.9 % (11.5-15.5); WBC 4.3 k/uL (3.8-10.6); WBC (Perox) 4.94
[2017-01-18 06:19] LABS: Glucose,Whole Blood 196 mg/dL (75-99)
[2017-01-18 06:27] LABS: MCV 99.3 fL (80.0-100.0)
--- NOTE | 2017-01-18 06:52 | XR ---
EXAMINATION TYPE: XR chest 1V portable DATE OF EXAM: 01/18/2017 HISTORY: Shortness of breath. REFERENCE: Previous study dated 01/16/2017. FINDINGS: The heart is mildly enlarged. Vascular status appears improved. The edema has largely resol flores. No definite pleural fluid is seen. IMPRESSION: IMPROVING CHANGES OF CONGESTIVE HEART FAILURE.
[2017-01-18 07:05] LABS: Add Differential Manual Differential
[2017-01-18 07:06] LABS: Glucose,Whole Blood 171 mg/dL (75-99)
[2017-01-18 07:12] LABS: Band Neutrophils % 30 %; Nucleated Red Blood Cells 0 /100 WBC (0-0); Total Cells Counted 200
[2017-01-18 07:13] LABS: Polychromasia Present
[2017-01-18 07:25] LABS: Prothrombin Time 10.5 sec (9.0-12.0)
[2017-01-18 07:35] LABS: Calcium 8.3 mg/dL (8.4-10.2); Magnesium 2.2 mg/dL (1.6-2.3); Phosphorus 5.7 mg/dL (2.5-4.5); Potassium 3.5 mmol/L (3.5-5.1)
[2017-01-18 08:16] LABS: Glucose,Whole Blood 147 mg/dL (75-99)
--- NOTE | 2017-01-18 09:07 | P.PN ---
Subjective Progress Note Date: 01/18/17 A 57-year-old female patient who presented to the hospital because of altered mental status. The patient apparently was getting more lethargic and sleepy and somewhat confused. The patient was also having fever on an outpatient basis. Blood Cultures have been sent and the dialysis site and apparently the blood cultures were told to be positive and for that reason the patient was sent into the hospital. The patient was given a dose of vancomycin and the patient's random vancomycin level is at 32. The patient has some limited diarrhea which has subsided. No nausea. No vomiting. No abdominal pain. No chest pain. She has an AV Ciaran the left upper extremity for dialysis. No cellulitis. No headaches. No neck stiffness. At the time of my evaluation, the patient was afebrile and her mentation was already improving. She opened her eyes patient moved all 4 extremities. She was able to recognize me as of taking care of this patient the past 4 issues related to her incisional disease and fluid overload. This is a very pleasant -[place] female patient with known history of end-stage renal disease on hemodialysis 3 times a week, Wednesdays and Fridays via a left upper extremity AV graft. The patient has been compliant to her treatment. The patient is known to have coronary artery disease. The patient has undergone previous angioplasty of the ramus intermedius artery artery in July 2016. He has been hospitalized in the past to the intensive care unit for hypertensive emergency and fluid overload. She was treated appropriately without any complications. She has a preserved LV function with an ejection fraction of 55%. She also has a moderate degree of mitral regurgitation. Cardiac catheterization was done during her latest admission and she has smaller vessel coronary artery disease. Not abnormal for any intervention. Note that she had a similar presentation in 08/01/2016 when she came in with pulmonary edema and fluid overload and hypertensive urgency with systolic blood pressure running in the 180-190 range. At that time the patient was placed on nitroglycerin drip which improved her blood pressure control. Subsequently she had [id number] dialysis with ultrafiltration and the pulmonary edema recovered. She has a preserved LV function based on previous echocardiograms. Please refer also to the most recent cardiac catheterization was done in July 2016. On 01/18/2017 the patient is being seen in follow-up. As mentioned, the patient got transferred to the intensive care unit. She was having fever. She was in mild DKA. She was having altered mentation and fever. She got dialyzed yesterday and dialysis was successful and the patient she had 2 L of fluid taken off. This morning she is awake and alert and she is following commands and answering questions appropriately. She is having fever and her T-max was 11.7. She was seen by infectious disease yesterday. Rocephin was discontinued and the patient was given a dose of Fortaz. Vancomycin random level today is at 22. The patient is still having negative blood cultures. No nausea no vomiting no abdominal pain. She was a straight cathed yesterday and would awaiting for the urine analysis and urine culture results also. No headache. No seizure activity. She is on an insulin drip at 0.5 units an hour and her blood sugars under better control for now. The chest x-ray from today is showing marked improvement in the pulmonary edema and there is no consolidation or airspace disease. Objective - Vital Signs Vital signs: Vital Signs Temp 101.7 F H 01/18/17 08:00 Pulse 101 H 01/18/17 08:00 Resp 22 01/18/17 08:00 BP 137/72 01/18/17 08:00 Pulse Ox 100 01/18/17 08:00 Intake & Output 01/17/17 01/18/17 01/18/17 19:59 06:59 18:59 Intake Total 12.784 Output Total 0 Balance 12.784 Weight Intake: IV 10 0.9 KVO 10 ACETAMINOPHEN IV (For NPO ) 400 mg In Empty Bag 1 bag @ 400 mls/hr IVPB Q6HR PRN Rx#:[id number] Intake, IV Titration 2.784 Amount ACETAMINOPHEN IV (For NPO ) 400 mg In Empty Bag 1 bag @ 400 mls/hr IVPB Q6HR PRN Rx#:[id number] Insulin Regular 100 unit 2.784 In Sodium Chloride 0.9% 100 ml @ 0.1 UNITS/KG/HR 7.32 mls/hr IV .[id number] [facility] Rx#:[id number] Sodium Chloride 0.9% 1, 000 ml @ 100 mls/hr IV . Q10H ONE Rx#:[id number] cefTAZidime 1 gm In Sodium Chloride 0.9% 50 ml @ 100 mls/hr IVPB ONCE STA Rx#:[id number] Output: Urine 0 Other Other: Voiding Method # Voids - Exam Head exam was generally normal. There was no scleral icterus or corneal arcus. Mucous membranes were moist. Neck is supple and the patient is positive JVDs no goiter or neck masses. Lungs sounds are diminished in lung bases bilaterally along with some bibasilar crackles.Cardiac exam revealed the PMI to be normally situated and sized. The rhythm was regular and no extrasystoles were noted during several minutes of auscultation. The first and second heart sounds were normal and physiologic splitting of the second heart sound was noted. There were no murmurs, rubs, clicks, or gallops.Abdominal exam revealed normal bowel sounds. The abdomen was soft, non-tender, and without masses, organomegaly, or appreciable enlargement of the abdominal aorta.Examination of the extremities revealed easily palpable radial, femoral and pedal pulses. There was no cyanosis, clubbing or edema. The patient has a left upper extremity AV graft. Neurologically, the patient is a bit sleepy yet she was arousable. She was able to respond to me and communicated she was able to move all 4 extremities without any limitation. No neck stiffness. No focal logical deficits. No facial asymmetry. Pupils are equal and reactive to light. - Labs CBC & Chem 7: 01/18/17 05:32 01/18/17 07:13 Labs: Abnormal Lab Results - Last 24 Hours (Table) 01/16/17 01/17/17 01/17/17 Range/Units 22:20 05:37 05:37 RBC (3.80-5.40) m/uL Hgb (11.4-16.0) gm/dL Hct (34.0-46.0) % RDW (11.5-15.5) % Lymphocytes # (Manual) (1.0-4.8) k/uL Sodium (137-145) mmol/L Carbon Dioxide (22-30) mmol/L BUN (7-17) mg/dL Creatinine (0.52-1.04) mg/dL Glucose (74-99) mg/dL POC Glucose (mg/dL) (75-99) mg/dL Hemoglobin A1c 8.0 H (4.0-6.0) % Calcium (8.4-10.2) mg/dL Phosphorus (2.5-4.5) mg/dL Iron 27 L (50-170) ug/dL TIBC 191 L (228-460) ug/dL Ferritin 9932.8 H (10.0-291.0) ng/mL 01/17/17 01/17/17 01/17/17 Range/Units 10:23 11:21 12:20 RBC (3.80-5.40) m/uL Hgb (11.4-16.0) gm/dL Hct (34.0-46.0) % RDW (11.5-15.5) % Lymphocytes # (Manual) (1.0-4.8) k/uL Sodium (137-145) mmol/L Carbon Dioxide (22-30) mmol/L BUN (7-17) mg/dL Creatinine (0.52-1.04) mg/dL Glucose (74-99) mg/dL POC Glucose (mg/dL) 269 H 235 H 205 H (75-99) mg/dL Hemoglobin A1c (4.0-6.0) % Calcium (8.4-10.2) mg/dL Phosphorus (2.5-4.5) mg/dL Iron (50-170) ug/dL TIBC (228-460) ug/dL Ferritin (10.0-291.0) ng/mL 01/17/17 01/17/17 01/17/17 Range/Units 12:58 14:05 14:30 RBC (3.80-5.40) m/uL Hgb (11.4-16.0) gm/dL Hct (34.0-46.0) % RDW (11.5-15.5) % Lymphocytes # (Manual) (1.0-4.8) k/uL Sodium 136 L (137-145) mmol/L Carbon Dioxide 20 L (22-30) mmol/L BUN 66 H (7-17) mg/dL Creatinine 9.94 H* (0.52-1.04) mg/dL Glucose 178 H (74-99) mg/dL POC Glucose (mg/dL) 210 H 170 H (75-99) mg/dL Hemoglobin A1c (4.0-6.0) % Calcium 8.3 L (8.4-10.2) mg/dL Phosphorus 5.2 H (2.5-4.5) mg/dL Iron (50-170) ug/dL TIBC (228-460) ug/dL Ferritin (10.0-291.0) ng/mL 01/17/17 01/17/17 01/17/17 Range/Units 17:35 18:09 18:38 RBC (3.80-5.40) m/uL Hgb (11.4-16.0) gm/dL Hct (34.0-46.0) % RDW (11.5-15.5) % Lymphocytes # (Manual) (1.0-4.8) k/uL Sodium (137-145) mmol/L Carbon Dioxide (22-30) mmol/L BUN (7-17) mg/dL Creatinine (0.52-1.04) mg/dL Glucose (74-99) mg/dL POC Glucose (mg/dL) 61 L 64 L 116 H (75-99) mg/dL Hemoglobin A1c (4.0-6.0) % Calcium (8.4-10.2) mg/dL Phosphorus (2.5-4.5) mg/dL Iron (50-170) ug/dL TIBC (228-460) ug/dL Ferritin (10.0-291.0) ng/mL 01/17/17 01/17/17 01/17/17 Range/Units 20:17 21:13 21:39 RBC (3.80-5.40) m/uL Hgb (11.4-16.0) gm/dL Hct (34.0-46.0) % RDW (11.5-15.5) % Lymphocytes # (Manual) (1.0-4.8) k/uL Sodium (137-145) mmol/L Carbon Dioxide (22-30) mmol/L BUN (7-17) mg/dL Creatinine (0.52-1.04) mg/dL Glucose (74-99) mg/dL POC Glucose (mg/dL) 236 H 276 H 260 H (75-99) mg/dL Hemoglobin A1c (4.0-6.0) % Calcium (8.4-10.2) mg/dL Phosphorus (2.5-4.5) mg/dL Iron (50-170) ug/dL TIBC (228-460) ug/dL Ferritin (10.0-291.0) ng/mL 01/17/17 01/17/17 01/18/17 Range/Units 22:09 23:04 00:16 RBC (3.80-5.40) m/uL Hgb (11.4-16.0) gm/dL Hct (34.0-46.0) % RDW (11.5-15.5) % Lymphocytes # (Manual) (1.0-4.8) k/uL Sodium (137-145) mmol/L Carbon Dioxide (22-30) mmol/L BUN (7-17) mg/dL Creatinine (0.52-1.04) mg/dL Glucose (74-99) mg/dL POC Glucose (mg/dL) 238 H 156 H 137 H (75-99) mg/dL Hemoglobin A1c (4.0-6.0) % Calcium (8.4-10.2) mg/dL Phosphorus (2.5-4.5) mg/dL Iron (50-170) ug/dL TIBC (228-460) ug/dL Ferritin (10.0-291.0) ng/mL 01/18/17 01/18/17 01/18/17 Range/Units 00:51 01:57 EST 01:58 EST RBC (3.80-5.40) m/uL Hgb (11.4-16.0) gm/dL Hct (34.0-46.0) % RDW (11.5-15.5) % Lymphocytes # (Manual) (1.0-4.8) k/uL Sodium (137-145) mmol/L Carbon Dioxide (22-30) mmol/L BUN (7-17) mg/dL Creatinine (0.52-1.04) mg/dL Glucose (74-99) mg/dL POC Glucose (mg/dL) 131 H 114 H 105 H (75-99) mg/dL Hemoglobin A1c (4.0-6.0) % Calcium (8.4-10.2) mg/dL Phosphorus (2.5-4.5) mg/dL Iron (50-170) ug/dL TIBC (228-460) ug/dL Ferritin (10.0-291.0) ng/mL 01/18/17 01/18/17 01/18/17 Range/Units 03:54 05:06 05:32 RBC 2.49 L (3.80-5.40) m/uL Hgb 7.8 L (11.4-16.0) gm/dL Hct 24.8 L (34.0-46.0) % RDW 19.9 H (11.5-15.5) % Lymphocytes # (Manual) 0.30 L (1.0-4.8) k/uL Sodium (137-145) mmol/L Carbon Dioxide (22-30) mmol/L BUN (7-17) mg/dL Creatinine (0.52-1.04) mg/dL Glucose (74-99) mg/dL POC Glucose (mg/dL) 140 H 218 H (75-99) mg/dL Hemoglobin A1c (4.0-6.0) % Calcium (8.4-10.2) mg/dL Phosphorus (2.5-4.5) mg/dL Iron (50-170) ug/dL TIBC (228-460) ug/dL Ferritin (10.0-291.0) ng/mL 01/18/17 01/18/17 01/18/17 Range/Units 06:17 07:04 07:13 RBC (3.80-5.40) m/uL Hgb (11.4-16.0) gm/dL Hct (34.0-46.0) % RDW (11.5-15.5) % Lymphocytes # (Manual) (1.0-4.8) k/uL Sodium (137-145) mmol/L Carbon Dioxide (22-30) mmol/L BUN 42 H (7-17) mg/dL Creatinine 6.80 H* (0.52-1.04) mg/dL Glucose 214 H (74-99) mg/dL POC Glucose (mg/dL) 196 H 171 H (75-99) mg/dL Hemoglobin A1c (4.0-6.0) % Calcium 8.3 L (8.4-10.2) mg/dL Phosphorus 5.7 H (2.5-4.5) mg/dL Iron (50-170) ug/dL TIBC (228-460) ug/dL Ferritin (10.0-291.0) ng/mL 01/18/17 Range/Units 08:14 RBC (3.80-5.40) m/uL Hgb (11.4-16.0) gm/dL Hct (34.0-46.0) % RDW (11.5-15.5) % Lymphocytes # (Manual) (1.0-4.8) k/uL Sodium (137-145) mmol/L Carbon Dioxide (22-30) mmol/L BUN (7-17) mg/dL Creatinine (0.52-1.04) mg/dL Glucose (74-99) mg/dL POC Glucose (mg/dL) 147 H (75-99) mg/dL Hemoglobin A1c (4.0-6.0) % Calcium (8.4-10.2) mg/dL Phosphorus (2.5-4.5) mg/dL Iron (50-170) ug/dL TIBC (228-460) ug/dL Ferritin (10.0-291.0) ng/mL Microbiology - Last 24 Hours (Table) 01/15/17 16:11 Blood Culture - Preliminary Blood No Growth after 48 hours Assessment and Plan Plan: Assessment 1 altered mentation along with fever. Rule out underlying septicemia nontender the patient had possible cultures on outpatient basis. The exact source of the infection is not clear. The patient will be started on a combination of Rocephin and vancomycin pending further cultures. Currently hemodynamically stable. Mental status is improving. The patient will be moved to the intensive care unit for further monitoring. On 01/18/2017 the patient is not having any significant mental status change. She is however having episodes of fever. She was given vancomycin and Fortaz. ID is on the case. Cultures of been all negative. No clear source of infection at this point. ID is on the case. Hemodynamically she is maintaining her on blood pressure and she has not required any pressors. 2 acute febrile illness on that investigation must see discussion above 3 coronary artery disease status post angioplasty of the ramus intermedius branch 4 End stage renal disease on hemodialysis, the patient underwent dialysis yesterday with 2 L ultrafiltration. Chest x-ray shows subsequent improvement acute pulmonary edema. 5 diabetes mellitus with poorly controlled blood sugars currently on insulin drip for blood sugar control the patient had some ketones and mild anion gap metabolic acidosis with an anion gap of 23 on 01/18/2017 the patient is on insulin drip at 0.5 units an hour. The patient' s anion gap was improved down to 17 and the bicarb level is up to 23. Oral intake is not up to par and for that reason we decided to keep the insulin drip for another 24 hours. 6 hypertensive with a poorly controlled blood pressure 7 hyperlipidemia 8 CVA/TIA 9 previous history of GI bleeding 10. peripheral Vascular disease 11 diverticulosis 12 osteoarthritis 13 CHF with a component of fluid overload/pulmonary edema with elevated BNP level. The patient is not having any major respiratory distress and the patient will be having dialysis today. BNP level has been chronically elevated. On today's chest x-ray there is marked improvement in volume status and the pulmonary edema that was discussed earlier as the patient had a 2 L of ultrafiltration. Plan Will monitor the blood cultures. We'll be awaiting the results of the urine analysis and urine cultures. Mentation is improved. No evidence of any significant colitis. No evidence of pneumonia. No evidence of any soft tissue infection. Continue same antibiotic coverage. Consult with infectious disease regarding any other possibilities. We'll monitor this patient here in ICU. Monitor hemodynamics. No need for pressors at this point. Nephrology is on the case. We'll continue to follow.
[2017-01-18 09:16] LABS: Glucose,Whole Blood 189 mg/dL (75-99)
[2017-01-18] MEDS: ASPIRIN 81 MG PO SCH (09:48)
[2017-01-18] MEDS: METOPROLOL SUCCINATE (ER) 50 MG TAB.ER.24H PO SCH (09:48)
[2017-01-18] MEDS: GABAPENTIN 100 MG CAP PO SCH ×3 (09:48→20:48)
[2017-01-18] MEDS: FUROSEMIDE 80 MG TAB PO SCH ×2 (09:48→20:48)
[2017-01-18] MEDS: CLOPIDOGREL 75 MG TAB PO SCH (09:48)
[2017-01-18] MEDS: amLODIPine 5 MG TAB PO SCH (09:49)
[2017-01-18] MEDS: FOLIC ACID-VIT B COMPLEX-VIT C 1 CAP PO SCH (09:49)
--- NOTE | 2017-01-18 10:28 | P.PN ---
Subjective Progress Note Date: 01/18/17 Principal diagnosis: ESRD Move to ICU yesterday for confusion. Clinically much better today able to keep conversation. Tolerated dialysis well yesterday. Objective - Vital Signs Vital signs: Vital Signs Temp 101.7 F H 01/18/17 08:00 Pulse 97 01/18/17 09:00 Resp 24 01/18/17 09:00 BP 130/44 01/18/17 09:00 Pulse Ox 74 L 01/18/17 08:30 Intake & Output 01/17/17 01/18/17 01/18/17 19:59 06:59 18:59 Intake Total 22.784 Output Total 0 Balance 22.784 Weight Intake: IV 20 0.9 KVO 20 ACETAMINOPHEN IV (For NPO ) 400 mg In Empty Bag 1 bag @ 400 mls/hr IVPB Q6HR PRN Rx#:[id number] Intake, IV Titration 2.784 Amount ACETAMINOPHEN IV (For NPO ) 400 mg In Empty Bag 1 bag @ 400 mls/hr IVPB Q6HR PRN Rx#:[id number] Insulin Regular 100 unit 2.784 In Sodium Chloride 0.9% 100 ml @ 0.1 UNITS/KG/HR 7.32 mls/hr IV .[id number] NYA Rx#:[id number] Sodium Chloride 0.9% 1, 000 ml @ 100 mls/hr IV . Q10H ONE Rx#:[id number] cefTAZidime 1 gm In Sodium Chloride 0.9% 50 ml @ 100 mls/hr IVPB ONCE STA Rx#:[id number] Output: Urine 0 Other Other: Voiding Method # Voids - Exam Lying in bed no acute distress No pallor cyanosis jaundice Vascular S1-S2 heard Clear to auscultation Left upper arm aVF No edema - Labs CBC & Chem 7: 01/18/17 05:32 01/18/17 07:13 Labs: Abnormal Lab Results - Last 24 Hours (Table) 01/16/17 01/17/17 01/17/17 Range/Units 22:20 05:37 05:37 RBC (3.80-5.40) m/uL Hgb (11.4-16.0) gm/dL Hct (34.0-46.0) % RDW (11.5-15.5) % Lymphocytes # (Manual) (1.0-4.8) k/uL Sodium (137-145) mmol/L Carbon Dioxide (22-30) mmol/L BUN (7-17) mg/dL Creatinine (0.52-1.04) mg/dL Glucose (74-99) mg/dL POC Glucose (mg/dL) (75-99) mg/dL Hemoglobin A1c 8.0 H (4.0-6.0) % Calcium (8.4-10.2) mg/dL Phosphorus (2.5-4.5) mg/dL Iron 27 L (50-170) ug/dL TIBC 191 L (228-460) ug/dL Ferritin 9932.8 H (10.0-291.0) ng/mL 01/17/17 01/17/17 01/17/17 Range/Units 11:21 12:20 12:58 RBC (3.80-5.40) m/uL Hgb (11.4-16.0) gm/dL Hct (34.0-46.0) % RDW (11.5-15.5) % Lymphocytes # (Manual) (1.0-4.8) k/uL Sodium (137-145) mmol/L Carbon Dioxide (22-30) mmol/L BUN (7-17) mg/dL Creatinine (0.52-1.04) mg/dL Glucose (74-99) mg/dL POC Glucose (mg/dL) 235 H 205 H 210 H (75-99) mg/dL Hemoglobin A1c (4.0-6.0) % Calcium (8.4-10.2) mg/dL Phosphorus (2.5-4.5) mg/dL Iron (50-170) ug/dL TIBC (228-460) ug/dL Ferritin (10.0-291.0) ng/mL 01/17/17 01/17/17 01/17/17 Range/Units 14:05 14:30 17:35 RBC (3.80-5.40) m/uL Hgb (11.4-16.0) gm/dL Hct (34.0-46.0) % RDW (11.5-15.5) % Lymphocytes # (Manual) (1.0-4.8) k/uL Sodium 136 L (137-145) mmol/L Carbon Dioxide 20 L (22-30) mmol/L BUN 66 H (7-17) mg/dL Creatinine 9.94 H* (0.52-1.04) mg/dL Glucose 178 H (74-99) mg/dL POC Glucose (mg/dL) 170 H 61 L (75-99) mg/dL Hemoglobin A1c (4.0-6.0) % Calcium 8.3 L (8.4-10.2) mg/dL Phosphorus 5.2 H (2.5-4.5) mg/dL Iron (50-170) ug/dL TIBC (228-460) ug/dL Ferritin (10.0-291.0) ng/mL 01/17/17 01/17/17 01/17/17 Range/Units 18:09 18:38 20:17 RBC (3.80-5.40) m/uL Hgb (11.4-16.0) gm/dL Hct (34.0-46.0) % RDW (11.5-15.5) % Lymphocytes # (Manual) (1.0-4.8) k/uL Sodium (137-145) mmol/L Carbon Dioxide (22-30) mmol/L BUN (7-17) mg/dL Creatinine (0.52-1.04) mg/dL Glucose (74-99) mg/dL POC Glucose (mg/dL) 64 L 116 H 236 H (75-99) mg/dL Hemoglobin A1c (4.0-6.0) % Calcium (8.4-10.2) mg/dL Phosphorus (2.5-4.5) mg/dL Iron (50-170) ug/dL TIBC (228-460) ug/dL Ferritin (10.0-291.0) ng/mL 01/17/17 01/17/17 01/17/17 Range/Units 21:13 21:39 22:09 RBC (3.80-5.40) m/uL Hgb (11.4-16.0) gm/dL Hct (34.0-46.0) % RDW (11.5-15.5) % Lymphocytes # (Manual) (1.0-4.8) k/uL Sodium (137-145) mmol/L Carbon Dioxide (22-30) mmol/L BUN (7-17) mg/dL Creatinine (0.52-1.04) mg/dL Glucose (74-99) mg/dL POC Glucose (mg/dL) 276 H 260 H 238 H (75-99) mg/dL Hemoglobin A1c (4.0-6.0) % Calcium (8.4-10.2) mg/dL Phosphorus (2.5-4.5) mg/dL Iron (50-170) ug/dL TIBC (228-460) ug/dL Ferritin (10.0-291.0) ng/mL 01/17/17 01/18/17 01/18/17 Range/Units 23:04 00:16 00:51 RBC (3.80-5.40) m/uL Hgb (11.4-16.0) gm/dL Hct (34.0-46.0) % RDW (11.5-15.5) % Lymphocytes # (Manual) (1.0-4.8) k/uL Sodium (137-145) mmol/L Carbon Dioxide (22-30) mmol/L BUN (7-17) mg/dL Creatinine (0.52-1.04) mg/dL Glucose (74-99) mg/dL POC Glucose (mg/dL) 156 H 137 H 131 H (75-99) mg/dL Hemoglobin A1c (4.0-6.0) % Calcium (8.4-10.2) mg/dL Phosphorus (2.5-4.5) mg/dL Iron (50-170) ug/dL TIBC (228-460) ug/dL Ferritin (10.0-291.0) ng/mL 01/18/17 01/18/17 01/18/17 Range/Units 01:57 EST 01:58 EST 03:54 RBC (3.80-5.40) m/uL Hgb (11.4-16.0) gm/dL Hct (34.0-46.0) % RDW (11.5-15.5) % Lymphocytes # (Manual) (1.0-4.8) k/uL Sodium (137-145) mmol/L Carbon Dioxide (22-30) mmol/L BUN (7-17) mg/dL Creatinine (0.52-1.04) mg/dL Glucose (74-99) mg/dL POC Glucose (mg/dL) 114 H 105 H 140 H (75-99) mg/dL Hemoglobin A1c (4.0-6.0) % Calcium (8.4-10.2) mg/dL Phosphorus (2.5-4.5) mg/dL Iron (50-170) ug/dL TIBC (228-460) ug/dL Ferritin (10.0-291.0) ng/mL 01/18/17 01/18/17 01/18/17 Range/Units 05:06 05:32 06:17 RBC 2.49 L (3.80-5.40) m/uL Hgb 7.8 L (11.4-16.0) gm/dL Hct 24.8 L (34.0-46.0) % RDW 19.9 H (11.5-15.5) % Lymphocytes # (Manual) 0.30 L (1.0-4.8) k/uL Sodium (137-145) mmol/L Carbon Dioxide (22-30) mmol/L BUN (7-17) mg/dL Creatinine (0.52-1.04) mg/dL Glucose (74-99) mg/dL POC Glucose (mg/dL) 218 H 196 H (75-99) mg/dL Hemoglobin A1c (4.0-6.0) % Calcium (8.4-10.2) mg/dL Phosphorus (2.5-4.5) mg/dL Iron (50-170) ug/dL TIBC (228-460) ug/dL Ferritin (10.0-291.0) ng/mL 01/18/17 01/18/17 01/18/17 Range/Units 07:04 07:13 08:14 RBC (3.80-5.40) m/uL Hgb (11.4-16.0) gm/dL Hct (34.0-46.0) % RDW (11.5-15.5) % Lymphocytes # (Manual) (1.0-4.8) k/uL Sodium (137-145) mmol/L Carbon Dioxide (22-30) mmol/L BUN 42 H (7-17) mg/dL Creatinine 6.80 H* (0.52-1.04) mg/dL Glucose 214 H (74-99) mg/dL POC Glucose (mg/dL) 171 H 147 H (75-99) mg/dL Hemoglobin A1c (4.0-6.0) % Calcium 8.3 L (8.4-10.2) mg/dL Phosphorus 5.7 H (2.5-4.5) mg/dL Iron (50-170) ug/dL TIBC (228-460) ug/dL Ferritin (10.0-291.0) ng/mL 01/18/17 Range/Units 09:14 RBC (3.80-5.40) m/uL Hgb (11.4-16.0) gm/dL Hct (34.0-46.0) % RDW (11.5-15.5) % Lymphocytes # (Manual) (1.0-4.8) k/uL Sodium (137-145) mmol/L Carbon Dioxide (22-30) mmol/L BUN (7-17) mg/dL Creatinine (0.52-1.04) mg/dL Glucose (74-99) mg/dL POC Glucose (mg/dL) 189 H (75-99) mg/dL Hemoglobin A1c (4.0-6.0) % Calcium (8.4-10.2) mg/dL Phosphorus (2.5-4.5) mg/dL Iron (50-170) ug/dL TIBC (228-460) ug/dL Ferritin (10.0-291.0) ng/mL Microbiology - Last 24 Hours (Table) 01/15/17 16:11 Blood Culture - Preliminary Blood No Growth after 48 hours Assessment and Plan Assessment: Impression: #1 end-stage renal disease on hemodialysis MWF well left upper arm AVG under the care of Dr. Damon #2 encephalopathy suspect from sepsis clinically better today. #3 fluid overload secondary to CHF status post hemodialysis 2 treatments. #4 DKA resolved #5 A. fib on anticoagulation. #6 hyperphosphatemia #7 anemia with ESRD. Recommendations: #1 plan hemodialysis tomorrow, with 2.5 L UF. #2 add Renvela 4 hyperphosphatemia. #3 antibiotics per infectious disease. #4 iron profile pending, and VANGIE.
[2017-01-18 11:35] LABS: Glucose,Whole Blood 225 mg/dL (75-99)
[2017-01-18 12:01] LABS: Glucose,Whole Blood 224 mg/dL (75-99)
[2017-01-18] MEDS: SEVELAMER 800 MG TAB PO SCH ×2 (12:26→17:32)
[2017-01-18] MEDS: DARBEPOETIN ALFA 60 MCG/0.3 ML SYRINGE SQ SCH (12:26)
[2017-01-18 13:45] LABS: Glucose,Whole Blood 228 mg/dL (75-99)
[2017-01-18] MEDS ORDERED: DEXTROSE 5% IN WATER 100 ML with AMIODARONE 150 MG IV STA (14:19)
[2017-01-18] MEDS ORDERED: NOREPINEPHRIN 16 MG-0.9%NS PMX 16 MG/250 ML ML IV SCH (14:20)
[2017-01-18] MEDS ORDERED: DILTIAZEM 125 MG in SODIUM CHLORIDE 0.9% 100 ML IV SCH (14:22)
[2017-01-18] MEDS ORDERED: SODIUM CHLORIDE 0.9% 500 ML IV ONE (14:24)
[2017-01-18 14:29] LABS: Appearance,Urine Cloudy (Clear); Bacteria,Urine Few /hpf; Bilirubin,Urine Negative (Negative); Glucose,Urine (UA) 3+ (Negative); Ketones,Urine Negative (Negative); Leukocyte Esterase,Urine Moderate (Negative); Mucus,Urine Rare /hpf; Nitrite,Urine Negative (Negative); Particle Count 35585; Protein,Urine 3+ (Negative); RBC,Urine 47 /hpf (0-5); Specific Gravity,Urine 1.014 (1.001-1.035); Squamous Epithelial Cell,Urine 95 /hpf (0-4); UA Billing (MACRO vs. MICRO) MICRO; Urobilinogen,Urine <2.0 mg/dL (<2.0); WBC,Urine 124 /hpf (0-5)
[2017-01-18] MEDS: AMIODARONE 450 MG in DEXTROSE 5% IN WATER 250 ML IV SCH ×4 (14:45→23:00)
[2017-01-18 14:50] LABS: Glucose,Whole Blood 269 mg/dL (75-99)
--- NOTE | 2017-01-18 15:44 | PCN ---
PROCEDURE NOTE Site of insertion is right femoral vein. No bedside complication or bleeding. TRIPLE LUMEN CATHETER PLACEMENT: Indication Hemodynamic monitoring/Intravenous access. A time-out was completed verifying correct patient, procedure, site, positioning, and implant(s) or special equipment if applicable. The patient was placed in a dependent position appropriate for triple lumen catheter placement based on the vein to be cannulated. The patient's right groin was prepped and draped in sterile fashion. 1% Lidocaine was used to anesthetize the surrounding skin area. A triple lumen 9F Cordis catheter was introduced into the femoral vein using Seldinger technique. The catheter was threaded smoothly over the guide wire and appropriate blood return was obtained. Each lumen of the catheter was evacuated of air and flushed with sterile saline. The catheter was then sutured in place to the skin and a sterile dressing applied. Perfusion to the extremity distal to the point of catheter insertion was checked and found to be adequate. MMODL / IJN: [id number] /
[2017-01-18 15:47] LABS: Glucose,Whole Blood 151 mg/dL (75-99)
[2017-01-18 16:32] LABS: Glucose,Whole Blood 209 mg/dL (75-99)
[2017-01-18] MEDS: WARFARIN 5 MG TAB PO SCH (17:32)
[2017-01-18 17:54] LABS: Glucose,Whole Blood 169 mg/dL (75-99)
[2017-01-18] MEDS ORDERED: VANCOMYCIN 1,000 MG in SODIUM CHLORIDE 0.9% 250 ML IVPB ONE (18:00)
[2017-01-18 19:22] LABS: Glucose,Whole Blood 115 mg/dL (75-99)
[2017-01-18 20:20] LABS: Glucose,Whole Blood 151 mg/dL (75-99)
[2017-01-18] MEDS: ATORVASTATIN 40 MG TAB PO SCH (20:48)
--- NOTE | 2017-01-18 20:55 | P.PN ---
Subjective Progress Note Date: 01/18/17 Principal diagnosis: Sepsis 57-year-old Afro-[place] female presents to the emergency center because there was difficulties with her mental status. The family relate that she developed confusion and was quite lethargic. She has a long-standing history of end- stage renal disease on hemodialysis through the local dialysis center in our community. When she was at her last dialysis center they were concerned that she had evidence of sepsis and was given a dose of vancomycin. Other notation of developing some diarrhea she was feeling relatively well until the onset of the significant altered mentation as well as a high-grade fever. Consult her family brought her to the emergency center where she was admitted at the present time with a temperature of 100 medical floor but had worsening of her status developed evidence of diabetic ketoacidosis was transferred to the intensive care unit. Because of ongoing sepsis infectious diseases consultation was requested. The patient currently has been seen by the dialysis nurse dialysis has started. And quite surprising with the start of dialysis she's not feeling considerably better. She was awake alert oriented to person and place. She remembers the dialysis nurses name without difficulty. She was able to relate the current history. Nursing staff relates that a few hours ago she was unable to give any history at all. At this time she just feels poorly with a high-grade fever. She has some generalized body ache. Her appetite is been poor. She has some nausea without emesis. She's had a a headache and it's not severe at this point in time. She 's had no rigor. If the time of evaluation today she is upright relates that she'd like her breakfast would like some fruit. Is denying further fever after her fever and chills of last night. Denies other acute changes. Objective - Vital Signs Vital signs: Vital Signs Temp 103.1 F H 01/18/17 20:00 Pulse 90 01/18/17 20:00 Resp 22 01/18/17 20:00 BP 131/44 01/18/17 20:00 Pulse Ox 100 01/18/17 20:00 Intake & Output 01/18/17 01/18/17 01/19/17 06:59 18:59 06:59 Intake Total 880.509 29.983 Output Total 0 Balance 880.509 29.983 Weight Intake: IV 100 20 0.9 KVO 100 20 ACETAMINOPHEN IV (For NPO ) 400 mg In Empty Bag 1 bag @ 400 mls/hr IVPB Q6HR PRN Rx#:[id number] Intake, IV Titration 680.509 9.983 Amount ACETAMINOPHEN IV (For NPO 40 ) 400 mg In Empty Bag 1 bag @ 400 mls/hr IVPB Q6HR PRN Rx#:[id number] Amiodarone 450 mg In 133.2 Dextrose 5% in Water 250 ml @ 1 MG/MIN 33.33 mls/ hr IV .Q7H31M [facility] Rx#: [id number] Insulin Regular 100 unit 7.309 9.983 In Sodium Chloride 0.9% 100 ml @ 0.1 UNITS/KG/HR 7.32 mls/hr IV .[id number] [facility] Rx#:[id number] Sodium Chloride 0.9% 500 500 ml @ 999 mls/hr IV .Q31M [facility] Rx#:[id number] Oral 100 Output: Urine 0 Other: Voiding Method Diaper # Voids # Bowel Movements 1 - Exam Pleasant 57-year-old woman who is quite comfortable at this time. She's feeling better now that her fevers resolved. The dutch odor of her ketosis is definitely improved, but does still have some residual on her breath. HEENT: Anicteric conjunctiva are pink and moist nasal mucosa grossly intact without significant lesions, there is no thrush. Evidence of bilateral cataract extraction and lens implantation Neck: The neck is supple without significant lymphadenopathy or thyromegaly. Lungs: They're symmetrical air entry, there is evidence of only few basilar crackles. No bronchial sounds are heard. No dullness or egophony. Heart: Regular rate and rhythm with an audible S1-S2, no S3 soft S4 and the hum of the fistula is easily heard. There is no significant murmur click or rub, PMI was nondisplaced. Abdomen: Positive bowel sounds soft and nontender without palpable masses or organomegaly. There was no guarding or rebound. Extremities: The upper extremities have excellent pulses they are symmetric, no significant petechiae or telangiectasia. No splinter hemorrhages were noted. The lower extremities are free from significant edema. The peripheral pulses were 2+ and symmetric. Neuro: Patient is now much more awake and alert. Shorted to person and place. Is able to give a reasonably good history. This again is considerably improved from just a few hours ago. Patient is not in fever overnight that has resolved. However after evaluation the nursing staff relates that she again had difficulties with fever, central line was placed by pulmonology for further intervention. - Labs CBC & Chem 7: 01/18/17 05:32 01/18/17 07:13 Labs: Abnormal Lab Results - Last 24 Hours (Table) 01/16/17 01/17/17 01/17/17 Range/Units 22:20 05:37 05:37 RBC (3.80-5.40) m/uL Hgb (11.4-16.0) gm/dL Hct (34.0-46.0) % RDW (11.5-15.5) % Lymphocytes # (Manual) (1.0-4.8) k/uL BUN (7-17) mg/dL Creatinine (0.52-1.04) mg/dL Glucose (74-99) mg/dL POC Glucose (mg/dL) (75-99) mg/dL Hemoglobin A1c 8.0 H (4.0-6.0) % Calcium (8.4-10.2) mg/dL Phosphorus (2.5-4.5) mg/dL Iron 27 L (50-170) ug/dL TIBC 191 L (228-460) ug/dL Ferritin 9932.8 H (10.0-291.0) ng/mL Urine Appearance (Clear) Urine Protein (Negative) Urine Glucose (UA) (Negative) Urine Blood (Negative) Ur Leukocyte Esterase (Negative) Urine RBC (0-5) /hpf Urine WBC (0-5) /hpf Ur Squamous Epith Cells (0-4) /hpf Urine Bacteria (None) /hpf Hyaline Casts (0-2) /lpf Urine Mucus (None) /hpf Urine Yeast (Budding) (None) /hpf 01/17/17 01/17/17 01/18/17 Range/Units 22:09 23:04 00:16 RBC (3.80-5.40) m/uL Hgb (11.4-16.0) gm/dL Hct (34.0-46.0) % RDW (11.5-15.5) % Lymphocytes # (Manual) (1.0-4.8) k/uL BUN (7-17) mg/dL Creatinine (0.52-1.04) mg/dL Glucose (74-99) mg/dL POC Glucose (mg/dL) 238 H 156 H 137 H (75-99) mg/dL Hemoglobin A1c (4.0-6.0) % Calcium (8.4-10.2) mg/dL Phosphorus (2.5-4.5) mg/dL Iron (50-170) ug/dL TIBC (228-460) ug/dL Ferritin (10.0-291.0) ng/mL Urine Appearance (Clear) Urine Protein (Negative) Urine Glucose (UA) (Negative) Urine Blood (Negative) Ur Leukocyte Esterase (Negative) Urine RBC (0-5) /hpf Urine WBC (0-5) /hpf Ur Squamous Epith Cells (0-4) /hpf Urine Bacteria (None) /hpf Hyaline Casts (0-2) /lpf Urine Mucus (None) /hpf Urine Yeast (Budding) (None) /hpf 01/18/17 01/18/17 01/18/17 Range/Units 00:51 01:57 EST 01:58 EST RBC (3.80-5.40) m/uL Hgb (11.4-16.0) gm/dL Hct (34.0-46.0) % RDW (11.5-15.5) % Lymphocytes # (Manual) (1.0-4.8) k/uL BUN (7-17) mg/dL Creatinine (0.52-1.04) mg/dL Glucose (74-99) mg/dL POC Glucose (mg/dL) 131 H 114 H 105 H (75-99) mg/dL Hemoglobin A1c (4.0-6.0) % Calcium (8.4-10.2) mg/dL Phosphorus (2.5-4.5) mg/dL Iron (50-170) ug/dL TIBC (228-460) ug/dL Ferritin (10.0-291.0) ng/mL Urine Appearance (Clear) Urine Protein (Negative) Urine Glucose (UA) (Negative) Urine Blood (Negative) Ur Leukocyte Esterase (Negative) Urine RBC (0-5) /hpf Urine WBC (0-5) /hpf Ur Squamous Epith Cells (0-4) /hpf Urine Bacteria (None) /hpf Hyaline Casts (0-2) /lpf Urine Mucus (None) /hpf Urine Yeast (Budding) (None) /hpf 01/18/17 01/18/17 01/18/17 Range/Units 03:54 05:06 05:32 RBC 2.49 L (3.80-5.40) m/uL Hgb 7.8 L (11.4-16.0) gm/dL Hct 24.8 L (34.0-46.0) % RDW 19.9 H (11.5-15.5) % Lymphocytes # (Manual) 0.30 L (1.0-4.8) k/uL BUN (7-17) mg/dL Creatinine (0.52-1.04) mg/dL Glucose (74-99) mg/dL POC Glucose (mg/dL) 140 H 218 H (75-99) mg/dL Hemoglobin A1c (4.0-6.0) % Calcium (8.4-10.2) mg/dL Phosphorus (2.5-4.5) mg/dL Iron (50-170) ug/dL TIBC (228-460) ug/dL Ferritin (10.0-291.0) ng/mL Urine Appearance (Clear) Urine Protein (Negative) Urine Glucose (UA) (Negative) Urine Blood (Negative) Ur Leukocyte Esterase (Negative) Urine RBC (0-5) /hpf Urine WBC (0-5) /hpf Ur Squamous Epith Cells (0-4) /hpf Urine Bacteria (None) /hpf Hyaline Casts (0-2) /lpf Urine Mucus (None) /hpf Urine Yeast (Budding) (None) /hpf 01/18/17 01/18/17 01/18/17 Range/Units 06:17 07:04 07:13 RBC (3.80-5.40) m/uL Hgb (11.4-16.0) gm/dL Hct (34.0-46.0) % RDW (11.5-15.5) % Lymphocytes # (Manual) (1.0-4.8) k/uL BUN 42 H (7-17) mg/dL Creatinine 6.80 H* (0.52-1.04) mg/dL Glucose 214 H (74-99) mg/dL POC Glucose (mg/dL) 196 H 171 H (75-99) mg/dL Hemoglobin A1c (4.0-6.0) % Calcium 8.3 L (8.4-10.2) mg/dL Phosphorus 5.7 H (2.5-4.5) mg/dL Iron (50-170) ug/dL TIBC (228-460) ug/dL Ferritin (10.0-291.0) ng/mL Urine Appearance (Clear) Urine Protein (Negative) Urine Glucose (UA) (Negative) Urine Blood (Negative) Ur Leukocyte Esterase (Negative) Urine RBC (0-5) /hpf Urine WBC (0-5) /hpf Ur Squamous Epith Cells (0-4) /hpf Urine Bacteria (None) /hpf Hyaline Casts (0-2) /lpf Urine Mucus (None) /hpf Urine Yeast (Budding) (None) /hpf 01/18/17 01/18/17 01/18/17 Range/Units 08:14 09:14 11:33 RBC (3.80-5.40) m/uL Hgb (11.4-16.0) gm/dL Hct (34.0-46.0) % RDW (11.5-15.5) % Lymphocytes # (Manual) (1.0-4.8) k/uL BUN (7-17) mg/dL Creatinine (0.52-1.04) mg/dL Glucose (74-99) mg/dL POC Glucose (mg/dL) 147 H 189 H 225 H (75-99) mg/dL Hemoglobin A1c (4.0-6.0) % Calcium (8.4-10.2) mg/dL Phosphorus (2.5-4.5) mg/dL Iron (50-170) ug/dL TIBC (228-460) ug/dL Ferritin (10.0-291.0) ng/mL Urine Appearance (Clear) Urine Protein (Negative) Urine Glucose (UA) (Negative) Urine Blood (Negative) Ur Leukocyte Esterase (Negative) Urine RBC (0-5) /hpf Urine WBC (0-5) /hpf Ur Squamous Epith Cells (0-4) /hpf Urine Bacteria (None) /hpf Hyaline Casts (0-2) /lpf Urine Mucus (None) /hpf Urine Yeast (Budding) (None) /hpf 01/18/17 01/18/17 01/18/17 Range/Units 11:59 13:42 14:15 RBC (3.80-5.40) m/uL Hgb (11.4-16.0) gm/dL Hct (34.0-46.0) % RDW (11.5-15.5) % Lymphocytes # (Manual) (1.0-4.8) k/uL BUN (7-17) mg/dL Creatinine (0.52-1.04) mg/dL Glucose (74-99) mg/dL POC Glucose (mg/dL) 224 H 228 H (75-99) mg/dL Hemoglobin A1c (4.0-6.0) % Calcium (8.4-10.2) mg/dL Phosphorus (2.5-4.5) mg/dL Iron (50-170) ug/dL TIBC (228-460) ug/dL Ferritin (10.0-291.0) ng/mL Urine Appearance Cloudy H (Clear) Urine Protein 3+ H (Negative) Urine Glucose (UA) 3+ H (Negative) Urine Blood Moderate H (Negative) Ur Leukocyte Esterase Moderate H (Negative) Urine RBC 47 H (0-5) /hpf Urine WBC 124 H (0-5) /hpf Ur Squamous Epith Cells 95 H (0-4) /hpf Urine Bacteria Few H (None) /hpf Hyaline Casts 108 H (0-2) /lpf Urine Mucus Rare H (None) /hpf Urine Yeast (Budding) Few H (None) /hpf 01/18/17 01/18/17 01/18/17 Range/Units 14:47 15:46 16:28 RBC (3.80-5.40) m/uL Hgb (11.4-16.0) gm/dL Hct (34.0-46.0) % RDW (11.5-15.5) % Lymphocytes # (Manual) (1.0-4.8) k/uL BUN (7-17) mg/dL Creatinine (0.52-1.04) mg/dL Glucose (74-99) mg/dL POC Glucose (mg/dL) 269 H 151 H 209 H (75-99) mg/dL Hemoglobin A1c (4.0-6.0) % Calcium (8.4-10.2) mg/dL Phosphorus (2.5-4.5) mg/dL Iron (50-170) ug/dL TIBC (228-460) ug/dL Ferritin (10.0-291.0) ng/mL Urine Appearance (Clear) Urine Protein (Negative) Urine Glucose (UA) (Negative) Urine Blood (Negative) Ur Leukocyte Esterase (Negative) Urine RBC (0-5) /hpf Urine WBC (0-5) /hpf Ur Squamous Epith Cells (0-4) /hpf Urine Bacteria (None) /hpf Hyaline Casts (0-2) /lpf Urine Mucus (None) /hpf Urine Yeast (Budding) (None) /hpf 01/18/17 01/18/17 01/18/17 Range/Units 17:53 19:21 20:18 RBC (3.80-5.40) m/uL Hgb (11.4-16.0) gm/dL Hct (34.0-46.0) % RDW (11.5-15.5) % Lymphocytes # (Manual) (1.0-4.8) k/uL BUN (7-17) mg/dL Creatinine (0.52-1.04) mg/dL Glucose (74-99) mg/dL POC Glucose (mg/dL) 169 H 115 H 151 H (75-99) mg/dL Hemoglobin A1c (4.0-6.0) % Calcium (8.4-10.2) mg/dL Phosphorus (2.5-4.5) mg/dL Iron (50-170) ug/dL TIBC (228-460) ug/dL Ferritin (10.0-291.0) ng/mL Urine Appearance (Clear) Urine Protein (Negative) Urine Glucose (UA) (Negative) Urine Blood (Negative) Ur Leukocyte Esterase (Negative) Urine RBC (0-5) /hpf Urine WBC (0-5) /hpf Ur Squamous Epith Cells (0-4) /hpf Urine Bacteria (None) /hpf Hyaline Casts (0-2) /lpf Urine Mucus (None) /hpf Urine Yeast (Budding) (None) /hpf Microbiology - Last 24 Hours (Table) 01/15/17 16:11 Blood Culture - Preliminary Blood No Growth after 72 hours 01/18/17 14:15 Urine Culture - Preliminary Urine,Catheterized Laboratory Results WBC 4.3 k/uL (3.8-10.6) 01/18/17 05:32 RBC 2.49 m/uL (3.80-5.40) L 01/18/17 05:32 Hgb 7.8 gm/dL (11.4-16.0) L 01/18/17 05:32 Hct 24.8 % (34.0-46.0) L 01/18/17 05:32 MCV 99.3 fL (80.0-100.0) D 01/18/17 05:32 MCH 31.2 pg (25.0-35.0) 01/18/17 05:32 MCHC 31.4 g/dL (31.0-37.0) 01/18/17 05:32 RDW 19.9 % (11.5-15.5) H 01/18/17 05:32 Plt Count 150 k/uL (150-450) 01/18/17 05:32 Neutrophils % 90 % 01/17/17 07:56 Neutrophils % (Manual) 60 % 01/18/17 05:32 Band Neutrophils % 30 % 01/18/17 05:32 Lymphocytes % 6 % 01/17/17 07:56 Lymphocytes % (Manual) 7 % 01/18/17 05:32 Monocytes % 3 % 01/17/17 07:56 Monocytes % (Manual) 4 % 01/18/17 05:32 Eosinophils % 0 % 01/17/17 07:56 Eosinophils % (Manual) 1 % 01/18/17 05:32 Basophils % 0 % 01/17/17 07:56 Neutrophils # 4.9 k/uL (1.3-7.7) 01/17/17 07:56 Neutrophils # (Manual) 3.80 k/uL (1.3-7.7) 01/18/17 05:32 Lymphocytes # 0.3 k/uL (1.0-4.8) L 01/17/17 07:56 Lymphocytes # (Manual) 0.30 k/uL (1.0-4.8) L 01/18/17 05:32 Monocytes # 0.2 k/uL (0-1.0) 01/17/17 07:56 Monocytes # (Manual) 0.17 k/uL (0-1.0) 01/18/17 05:32 Eosinophils # 0.0 k/uL (0-0.7) 01/17/17 07:56 Eosinophils # (Manual) 0.04 k/uL (0-0.7) 01/18/17 05:32 Basophils # 0.0 k/uL (0-0.2) 01/17/17 07:56 Nucleated RBCs 0 /100 WBC (0-0) 01/18/17 05:32 Polychromasia Present 01/18/17 05:32 Hypochromasia Moderate 01/18/17 05:32 Poikilocytosis (manual Present 01/18/17 05:32 Anisocytosis Slight 01/18/17 05:32 Macrocytosis Moderate 01/18/17 05:32 PT 10.5 sec (9.0-12.0) 01/18/17 07:13 INR 1.0 (<1.2) 01/18/17 07:13 APTT 23.0 sec (22.0-30.0) 01/15/17 16:11 Sample Site r rad 01/16/17 16:17 ABG pH 7.49 (7.35-7.45) H 01/16/17 16:17 ABG pCO2 29 mmHg (35-45) L 01/16/17 16:17 ABG pO2 79 mmHg (83-108) L 01/16/17 16:17 ABG HCO3 22 mmol/L (21-25) 01/16/17 16:17 ABG Total CO2 23 mmol/L (19-24) 01/16/17 16:17 ABG O2 Saturation 96.8 % (94-97) 01/16/17 16:17 ABG Base Excess -0.7 mmol/L 01/16/17 16:17 FiO2 45 % 01/16/17 16:17 Sodium 139 mmol/L (137-145) 01/18/17 07:13 Potassium 3.5 mmol/L (3.5-5.1) 01/18/17 07:13 Chloride 98 mmol/L (98-107) 01/18/17 07:13 Carbon Dioxide 24 mmol/L (22-30) 01/18/17 07:13 Anion Gap 17 mmol/L 01/18/17 07:13 BUN 42 mg/dL (7-17) H 01/18/17 07:13 Creatinine 6.80 mg/dL (0.52-1.04) H* 01/18/17 07:13 Est GFR (MDRD) Af Amer 8 (>60 ml/min/1.73 sqM) 01/18/17 07:13 Est GFR (MDRD) Non-Af 6 (>60 ml/min/1.73 sqM) 01/18/17 07:13 Glucose 214 mg/dL (74-99) H 01/18/17 07:13 POC Glucose (mg/dL) 151 mg/dL (75-99) H 01/18/17 20:18 POC Glu [employer] ID Essence Gonzalez 01/18/17 20:[address] Glu mg/dL 183 01/16/17 22:20 Hemoglobin A1c 8.0 % (4.0-6.0) H 01/16/17 22:20 Plasma Lactic Acid Tomas 1.7 mmol/L (0.7-2.0) 01/17/17 07:48 Calcium 8.3 mg/dL (8.4-10.2) L 01/18/17 07:13 Phosphorus 5.7 mg/dL (2.5-4.5) H 01/18/17 07:13 Magnesium 2.2 mg/dL (1.6-2.3) 01/18/17 07:13 Iron 27 ug/dL (50-170) L 01/17/17 05:37 TIBC 191 ug/dL (228-460) L 01/17/17 05:37 Iron Saturation 14.14 (12.00-45.00) 01/17/17 05:37 Ferritin 9932.8 ng/mL (10.0-291.0) H 01/17/17 05:37 Total Bilirubin 0.5 mg/dL (0.2-1.3) 01/15/17 16:11 AST 42 U/L (14-36) H 01/15/17 16:11 ALT 37 U/L (9-52) 01/15/17 16:11 Alkaline Phosphatase 98 U/L (38-126) 01/15/17 16:11 Ammonia <9 umol/L (<30) 01/16/17 22:20 Total Creatine Kinase 76 U/L (30-135) 01/15/17 16:11 CK-MB (CK-2) 0.8 ng/mL (0.0-2.4) 01/15/17 16:11 CK-MB (CK-2) Rel Index 1.1 01/15/17 16:11 Troponin I 0.182 ng/mL (0.000-0.034) H* 01/16/17 03:13 NT-Pro-B Natriuret Pep 23811 pg/mL 01/16/17 08:00 Total Protein 6.5 g/dL (6.3-8.2) 01/15/17 16:11 Albumin 3.7 g/dL (3.5-5.0) 01/15/17 16:11 Urine Color Yellow 01/18/17 14:15 Urine Appearance Cloudy (Clear) H 01/18/17 14:15 Urine pH 7.0 (5.0-8.0) 01/18/17 14:15 Ur Specific [place] 1.014 (1.001-1.035) 01/18/17 14:15 Urine Protein 3+ (Negative) H 01/18/17 14:15 Urine Glucose (UA) 3+ (Negative) H 01/18/17 14:15 Urine Ketones Negative (Negative) 01/18/17 14:15 Urine Blood Moderate (Negative) H 01/18/17 14:15 Urine Nitrite Negative (Negative) 01/18/17 14:15 Urine Bilirubin Negative (Negative) 01/18/17 14:15 Urine Urobilinogen <2.0 mg/dL (<2.0) 01/18/17 14:15 Ur Leukocyte Esterase Moderate (Negative) H 01/18/17 14:15 Urine RBC 47 /hpf (0-5) H 01/18/17 14:15 Urine WBC 124 /hpf (0-5) H 01/18/17 14:15 Ur Squamous Epith Cells 95 /hpf (0-4) H 01/18/17 14:15 Urine Bacteria Few /hpf (None) H 01/18/17 14:15 Hyaline Casts 108 /lpf (0-2) H 01/18/17 14:15 Urine Mucus Rare /hpf (None) H 01/18/17 14:15 Urine Yeast (Budding) Few /hpf (None) H 01/18/17 14:15 Random Vancomycin 21.9 ug/mL 01/18/17 07:13 Acetone, Qual Positive (Negative) 01/16/17 08:00 Influenza Type A RNA Not Detected (Not Detectd) 01/15/17 15:50 Influenza Type B (PCR) Not Detected (Not Detectd) 01/15/17 15:50 Microbiology 01/15/17 16:11 Blood Blood Culture - Preliminary No Growth after 72 hours 01/18/17 14:15 Urine,Catheterized Urine Culture - Preliminary Assessment and Plan (1) Altered mental status Current Visit: Yes Status: Acute Code(s): R41.82 - ALTERED MENTAL STATUS, UNSPECIFIED SNOMED Code(s): 366869898 (2) Sepsis Narrative/Plan: 57-year-old female presents to emergency center with her family because of some altered mentation. At presentation is evidence of fever and concerns for sepsis. There is some data that is provided that at the dialysis center she had evidence of a positive blood culture. Intravenous antibiotic therapy was initiated the dialysis center with vancomycin. She's now presented to Hospital. There is evidence of worsening of her status. She developed diabetic ketoacidosis which further worsened her metabolic state. He also worsened her neurological state. Her DKA is now under much better control and insulin drip is newly turned off. The gap is closed. And she started to feel considerably better. However this ongoing concerns underlying sepsis. With her dialysis status vancomycin is appropriate however we'll alter ceftriaxone to ceftazidime ensure that were covering for Pseudomonas which is a more common pathogen in this population. Follow-up cultures are in process. Her DKA is being actively treated insulin drip is being currently tapered at this time. Was having some improvement but again is febrile again. Blood and urine cultures are process. Negative so far. At this time continue with vancomycin as well as ceftaxidime for coverage of staph and strep and pseudomonas. It does appear her significant ketosis is improving but not completely resolved. Nephrology is following and will address her significant anemia. Nursing staff has contacted with ongoing fever. Fortaz discontinued meropenem started. Follow blood cultures requested Current Visit: Yes Status: Acute Code(s): A41.9 - SEPSIS, UNSPECIFIED ORGANISM SNOMED Code(s): 72859895 (3) DKA (diabetic ketoacidoses) Current Visit: No Status: Acute Code(s): E13.10 - OTH DIABETES MELLITUS WITH KETOACIDOSIS WITHOUT COMA SNOMED Code(s): 180059463 (4) Chronic kidney disease with end stage renal failure on dialysis Current Visit: Yes Status: Acute Code(s): N18.6 - END STAGE RENAL DISEASE; Z99.2 - DEPENDENCE ON RENAL DIALYSIS SNOMED Code(s): 534968311
[2017-01-18] MEDS ORDERED: MEROPENEM 500 MG in SODIUM CHLORIDE 0.9% 50 ML IVPB STA (21:07)
--- NOTE | 2017-01-18 22:58 | P.PN ---
Subjective Progress Note Date: 01/18/17 Principal diagnosis: Sepsis Patient is a 56-year-old female with a past medical history of ESRD on hemodialysis MWF via AV graft, hypertension, diabetes type 2 history of coronary disease and recently diagnosed atrial fibrillation and was started on anticoagulation with Coumadin presented to the ER due to altered mental status. Patient had hemodialysis last night. Patient was supposed to be confused at the time. Patient woke up next morning with more confusion and also noted to have fevers. Patient's family member says that blood culture set dialysis Center showed infection and patient was sent to Hospital. Otherwise patient seems to be lethargic and confused but oriented 2. Denied any complaints of chest pain or short of breath. No nausea or nausea vomiting or diarrhea. Patient had one episode of diarrhea and C. diff was sent. Today afternoon patient became more confused and shortness of breath requiring oxygen. Patient was placed on Ventimask and repeat labs were attempted but could not get IV access. Patient was placed on telemetry monitoring and ABGs will be obtained. Patient had hemodialysis today. Chest x-ray on admission showed fluid overload BNP greater than 80,000 on admission. Patient was recently admitted to the hospital with a GI bleed/darker stools. Patient was started back on anti-coagulation after a week and current hemoglobin is 7.9. Otherwise patient does not have any fever or chills now . Blood cultures were sent. No leukocytosis noted. Patient was found to have hyperglycemia and was started on insulin drip. Her gap 23 and bicarbonate 19. Acetone positive. 01/17/2017 Patient seems to be confused on and off. Patient currently is to be febrile today. Blood cultures are negative so far. Patient denied any worsening short of breath. No complaints of chest pain. No diarrhea no abdominal pain. Anion gap closed. Insulin drip has been discontinued. Patient will be transferred to MICU due to patient condition of fever and altered mental status. 01/18/2017 Patient was improving clinically decreased orientation but today morning patient became febrile again. Blood cultures is negative so far. Patient was on vancomycin and ceftazidime. Ceftazidime was changed to meropenem as widely recommendations. Patient is still having mild DKA. Patient did have hemodialysis today with 2 l ultrafiltration. Chest x-ray showed improvement in CHF . Patient denied any short of breath. No complaints of chest pain. No nausea vomiting or abdominal pain. All other review of systems negative except the above Current medications reviewed Objective - Vital Signs Vital signs: Vital Signs Temp 103.1 F H 01/18/17 20:00 Pulse 90 01/18/17 22:30 Resp 32 H 01/18/17 22:30 BP 125/43 01/18/17 22:30 Pulse Ox 100 01/18/17 22:30 Intake & Output 01/18/17 01/18/17 01/19/17 06:59 18:59 06:59 Intake Total 880.509 295.341 Output Total 0 Balance 880.509 295.341 Weight Intake: IV 100 40 0.9 KVO 100 40 ACETAMINOPHEN IV (For NPO ) 400 mg In Empty Bag 1 bag @ 400 mls/hr IVPB Q6HR PRN Rx#:[id number] Intake, IV Titration 680.509 255.341 Amount ACETAMINOPHEN IV (For NPO 40 ) 400 mg In Empty Bag 1 bag @ 400 mls/hr IVPB Q6HR PRN Rx#:[id number] Amiodarone 450 mg In 133.2 244.42 Dextrose 5% in Water 250 ml @ 1 MG/MIN 33.33 mls/ hr IV .Q7H31M [facility] Rx#: [id number] Insulin Regular 100 unit 7.309 10.921 In Sodium Chloride 0.9% 100 ml @ 0.1 UNITS/KG/HR 7.32 mls/hr IV .[id number] [facility] Rx#:[id number] Sodium Chloride 0.9% 500 500 ml @ 999 mls/hr IV .Q31M [facility] Rx#:[id number] Oral 100 Output: Urine 0 Other: Voiding Method Diaper # Voids # Bowel Movements 1 - Exam PHYSICAL EXAMINATION: Patient is lying in the bed comfortably, no acute distress, awake alert but confused and is oriented. HEENT: Normocephalic. Neck is supple. Pupils reactive. Nostrils clear. Oral cavity is moist. Ears reveal no drainage. Neck reveals no JVD, carotid bruits, or thyromegaly. CHEST EXAMINATION: Trachea is central. Symmetrical expansion. Bilateral diminished air entry basally. No wheezing CARDIAC: Normal S1, S2 with no gallops. No murmurs ABDOMEN: Soft. Bowel sounds normal. No organomegaly. No abdominal bruits. Extremities: reveal no edema. No clubbing or cyanosis Neurologically awake, alert, oriented x3 with well-coordinated movements. No focal deficits noted Skin: No rash or skin lesions. Psychiatric: Operative. Nonsuicidal Musculoskeletal: No joint swelling or deformity. Normal range of motion. - Labs CBC & Chem 7: 01/18/17 05:32 01/18/17 07:13 Labs: Abnormal Lab Results - Last 24 Hours (Table) 01/18/17 01/18/17 01/18/17 Range/Units 00:16 00:51 01:57 EST RBC (3.80-5.40) m/uL Hgb (11.4-16.0) gm/dL Hct (34.0-46.0) % RDW (11.5-15.5) % Lymphocytes # (Manual) (1.0-4.8) k/uL BUN (7-17) mg/dL Creatinine (0.52-1.04) mg/dL Glucose (74-99) mg/dL POC Glucose (mg/dL) 137 H 131 H 114 H (75-99) mg/dL Calcium (8.4-10.2) mg/dL Phosphorus (2.5-4.5) mg/dL Urine Appearance (Clear) Urine Protein (Negative) Urine Glucose (UA) (Negative) Urine Blood (Negative) Ur Leukocyte Esterase (Negative) Urine RBC (0-5) /hpf Urine WBC (0-5) /hpf Ur Squamous Epith Cells (0-4) /hpf Urine Bacteria (None) /hpf Hyaline Casts (0-2) /lpf Urine Mucus (None) /hpf Urine Yeast (Budding) (None) /hpf 01/18/17 01/18/17 01/18/17 Range/Units 01:58 EST 03:54 05:06 RBC (3.80-5.40) m/uL Hgb (11.4-16.0) gm/dL Hct (34.0-46.0) % RDW (11.5-15.5) % Lymphocytes # (Manual) (1.0-4.8) k/uL BUN (7-17) mg/dL Creatinine (0.52-1.04) mg/dL Glucose (74-99) mg/dL POC Glucose (mg/dL) 105 H 140 H 218 H (75-99) mg/dL Calcium (8.4-10.2) mg/dL Phosphorus (2.5-4.5) mg/dL Urine Appearance (Clear) Urine Protein (Negative) Urine Glucose (UA) (Negative) Urine Blood (Negative) Ur Leukocyte Esterase (Negative) Urine RBC (0-5) /hpf Urine WBC (0-5) /hpf Ur Squamous Epith Cells (0-4) /hpf Urine Bacteria (None) /hpf Hyaline Casts (0-2) /lpf Urine Mucus (None) /hpf Urine Yeast (Budding) (None) /hpf 01/18/17 01/18/17 01/18/17 Range/Units 05:32 06:17 07:04 RBC 2.49 L (3.80-5.40) m/uL Hgb 7.8 L (11.4-16.0) gm/dL Hct 24.8 L (34.0-46.0) % RDW 19.9 H (11.5-15.5) % Lymphocytes # (Manual) 0.30 L (1.0-4.8) k/uL BUN (7-17) mg/dL Creatinine (0.52-1.04) mg/dL Glucose (74-99) mg/dL POC Glucose (mg/dL) 196 H 171 H (75-99) mg/dL Calcium (8.4-10.2) mg/dL Phosphorus (2.5-4.5) mg/dL Urine Appearance (Clear) Urine Protein (Negative) Urine Glucose (UA) (Negative) Urine Blood (Negative) Ur Leukocyte Esterase (Negative) Urine RBC (0-5) /hpf Urine WBC (0-5) /hpf Ur Squamous Epith Cells (0-4) /hpf Urine Bacteria (None) /hpf Hyaline Casts (0-2) /lpf Urine Mucus (None) /hpf Urine Yeast (Budding) (None) /hpf 01/18/17 01/18/17 01/18/17 Range/Units 07:13 08:14 09:14 RBC (3.80-5.40) m/uL Hgb (11.4-16.0) gm/dL Hct (34.0-46.0) % RDW (11.5-15.5) % Lymphocytes # (Manual) (1.0-4.8) k/uL BUN 42 H (7-17) mg/dL Creatinine 6.80 H* (0.52-1.04) mg/dL Glucose 214 H (74-99) mg/dL POC Glucose (mg/dL) 147 H 189 H (75-99) mg/dL Calcium 8.3 L (8.4-10.2) mg/dL Phosphorus 5.7 H (2.5-4.5) mg/dL Urine Appearance (Clear) Urine Protein (Negative) Urine Glucose (UA) (Negative) Urine Blood (Negative) Ur Leukocyte Esterase (Negative) Urine RBC (0-5) /hpf Urine WBC (0-5) /hpf Ur Squamous Epith Cells (0-4) /hpf Urine Bacteria (None) /hpf Hyaline Casts (0-2) /lpf Urine Mucus (None) /hpf Urine Yeast (Budding) (None) /hpf 01/18/17 01/18/17 01/18/17 Range/Units 11:33 11:59 13:42 RBC (3.80-5.40) m/uL Hgb (11.4-16.0) gm/dL Hct (34.0-46.0) % RDW (11.5-15.5) % Lymphocytes # (Manual) (1.0-4.8) k/uL BUN (7-17) mg/dL Creatinine (0.52-1.04) mg/dL Glucose (74-99) mg/dL POC Glucose (mg/dL) 225 H 224 H 228 H (75-99) mg/dL Calcium (8.4-10.2) mg/dL Phosphorus (2.5-4.5) mg/dL Urine Appearance (Clear) Urine Protein (Negative) Urine Glucose (UA) (Negative) Urine Blood (Negative) Ur Leukocyte Esterase (Negative) Urine RBC (0-5) /hpf Urine WBC (0-5) /hpf Ur Squamous Epith Cells (0-4) /hpf Urine Bacteria (None) /hpf Hyaline Casts (0-2) /lpf Urine Mucus (None) /hpf Urine Yeast (Budding) (None) /hpf 01/18/17 01/18/17 01/18/17 Range/Units 14:15 14:47 15:46 RBC (3.80-5.40) m/uL Hgb (11.4-16.0) gm/dL Hct (34.0-46.0) % RDW (11.5-15.5) % Lymphocytes # (Manual) (1.0-4.8) k/uL BUN (7-17) mg/dL Creatinine (0.52-1.04) mg/dL Glucose (74-99) mg/dL POC Glucose (mg/dL) 269 H 151 H (75-99) mg/dL Calcium (8.4-10.2) mg/dL Phosphorus (2.5-4.5) mg/dL Urine Appearance Cloudy H (Clear) Urine Protein 3+ H (Negative) Urine Glucose (UA) 3+ H (Negative) Urine Blood Moderate H (Negative) Ur Leukocyte Esterase Moderate H (Negative) Urine RBC 47 H (0-5) /hpf Urine WBC 124 H (0-5) /hpf Ur Squamous Epith Cells 95 H (0-4) /hpf Urine Bacteria Few H (None) /hpf Hyaline Casts 108 H (0-2) /lpf Urine Mucus Rare H (None) /hpf Urine Yeast (Budding) Few H (None) /hpf 01/18/17 01/18/17 01/18/17 Range/Units 16:28 17:53 19:21 RBC (3.80-5.40) m/uL Hgb (11.4-16.0) gm/dL Hct (34.0-46.0) % RDW (11.5-15.5) % Lymphocytes # (Manual) (1.0-4.8) k/uL BUN (7-17) mg/dL Creatinine (0.52-1.04) mg/dL Glucose (74-99) mg/dL POC Glucose (mg/dL) 209 H 169 H 115 H (75-99) mg/dL Calcium (8.4-10.2) mg/dL Phosphorus (2.5-4.5) mg/dL Urine Appearance (Clear) Urine Protein (Negative) Urine Glucose (UA) (Negative) Urine Blood (Negative) Ur Leukocyte Esterase (Negative) Urine RBC (0-5) /hpf Urine WBC (0-5) /hpf Ur Squamous Epith Cells (0-4) /hpf Urine Bacteria (None) /hpf Hyaline Casts (0-2) /lpf Urine Mucus (None) /hpf Urine Yeast (Budding) (None) /hpf 01/18/17 Range/Units 20:18 RBC (3.80-5.40) m/uL Hgb (11.4-16.0) gm/dL Hct (34.0-46.0) % RDW (11.5-15.5) % Lymphocytes # (Manual) (1.0-4.8) k/uL BUN (7-17) mg/dL Creatinine (0.52-1.04) mg/dL Glucose (74-99) mg/dL POC Glucose (mg/dL) 151 H (75-99) mg/dL Calcium (8.4-10.2) mg/dL Phosphorus (2.5-4.5) mg/dL Urine Appearance (Clear) Urine Protein (Negative) Urine Glucose (UA) (Negative) Urine Blood (Negative) Ur Leukocyte Esterase (Negative) Urine RBC (0-5) /hpf Urine WBC (0-5) /hpf Ur Squamous Epith Cells (0-4) /hpf Urine Bacteria (None) /hpf Hyaline Casts (0-2) /lpf Urine Mucus (None) /hpf Urine Yeast (Budding) (None) /hpf Microbiology - Last 24 Hours (Table) 01/15/17 16:11 Blood Culture - Preliminary Blood No Growth after 72 hours 01/18/17 14:15 Urine Culture - Preliminary Urine,Catheterized Assessment and Plan Assessment: #1 fever. Rule out infection. Patient had positive blood cultures at dialysis central. Influenza negative. Chest x-ray showed fluid overload no infiltrates noted. Urine culture was ordered. Patient does not have any cough or sputum production. Blood cultures were sent. Currently patient is febrile again. We'll follow up on culture reports. C. diff toxin was sent. #2 altered mental status/metabolic encephalopathy likely due to infection and electrolyte abnormality #3 mild DKA. Patient was started on insulin drip. AG-16 and a acetone positive. Resolving now #2 recent Dark colored stools due to GI bleed. Hemoglobin 7.9 on admission. Will follow H&H. Patient has been started on Coumadin. #2 paroxysmal atrial fibrillation on anticoagulation with Coumadin #3 ESRD on hemo-dialysis. Left AV graft. Thursday was decided #3 history of coronary artery disease status post stent placement #5. Anemia of chronic disease on epogen #6 elevated troponin level. Unlikely acute [place] #7 diabetes type 2 uncontrolled with A1c 8.4 #8 hypertension #9 history of GI bleed in November 2015. Status post coloscopy and found to have AVM Plan: Patient had hemodialysis done on Thursday with 2 l ultrafiltration. Insulin drip was discontinued and currently on insulin regimen.. We will continue the antibiotics in the form of vancomycin and ceftazidime---> meropenem.. Will follow-up blood cultures and urine cultures. Nephrology is on board. Will monitor H&H. Further recommendations based on the clinical course. Prognosis is guarded with multiple medical problems and comorbid conditions discussed with family in detail at bedside. Time with Patient: Greater than 30
[2017-01-18 23:29] LABS: Glucose,Whole Blood 158 mg/dL (75-99)
[2017-01-19 00:06] LABS: Glucose,Whole Blood 188 mg/dL (75-99)
[2017-01-19 01:08] LABS: Glucose,Whole Blood 164 mg/dL (75-99)
[2017-01-19 03:09] LABS: Glucose,Whole Blood 154 mg/dL (75-99)
[2017-01-19] MEDS: ACETAMINOPHEN IVPB PRN ×2 (03:36→15:09)
[2017-01-19 04:40] LABS: Glucose,Whole Blood 161 mg/dL (75-99)
[2017-01-19 05:15] LABS: Glucose,Whole Blood 113 mg/dL (75-99)
[2017-01-19 05:16] LABS: Calcium 7.5 mg/dL (8.4-10.2); Phosphorus 6.7 mg/dL (2.5-4.5); Potassium 3.6 mmol/L (3.5-5.1)
[2017-01-19 05:17] LABS: INR 1.1 (<1.2); Prothrombin Time 10.7 sec (9.0-12.0)
[2017-01-19 05:57] LABS: Glucose,Whole Blood 185 mg/dL (75-99)
[2017-01-19 06:17] LABS: Anisocytosis Moderate; Basophils % (A) 0 %; CH 29.6; CHCM 29.4; Eosinophils % (A) 0 %; HCT 20.6 % (34.0-46.0); HDW 2.74; Hypochromasia Marked; Luc # (Auto) 0.21; Luc % (Auto) 3; Lymphocytes # (A) 0.6 k/uL (1.0-4.8); Lymphocytes % (A) 8 %; MCH 30.1 pg (25.0-35.0); MCHC 29.7 g/dL (31.0-37.0); MCV 101.2 fL (80.0-100.0); Macrocytosis Moderate; Monocytes # (A) 0.2 k/uL (0-1.0); Monocytes % (A) 2 %; Neutrophils % (A) 86 %; RBC 2.03 m/uL (3.80-5.40); RDW 20.1 % (11.5-15.5); WBC (Perox) 7.55
[2017-01-19 06:23] LABS: HGB 6.1 gm/dL (11.4-16.0)
[2017-01-19 07:13] LABS: Glucose,Whole Blood 168 mg/dL (75-99)
--- NOTE | 2017-01-19 07:45 | XR ---
EXAMINATION TYPE: XR chest 1V portable DATE OF EXAM: 01/19/2017 COMPARISON: Prior chest x-ray 01/18/2017 HISTORY: Abnormal chest x-ray TECHNIQUE: Single frontal view of the chest is obtained. FINDINGS: Heart is enlarged. Bilateral mixed interstitial and airspace disease noted. No pneumothora x. No sizable effusion. The aorta is dense. There are overlying cardiac leads. Pulmonary vascularity and kamille not significantly changed. IMPRESSION: Correlate for congestive heart failure.
[2017-01-19 08:06] LABS: Glucose,Whole Blood 156 mg/dL (75-99)
[2017-01-19] MEDS: INSULIN REGULAR 100 UNIT in SODIUM CHLORIDE 0.9% 100 ML IV SCH (09:50)
[2017-01-19] MEDS: AMIODARONE 450 MG in DEXTROSE 5% IN WATER 250 ML IV SCH ×4 (09:51→16:54)
[2017-01-19] MEDS: SEVELAMER 800 MG TAB PO SCH ×3 (10:14→17:58)
[2017-01-19 10:52] LABS: Glucose,Whole Blood 120 mg/dL (75-99)
--- NOTE | 2017-01-19 11:35 | XR ---
2 view abdomen HISTORY: Abdominal distention 2 views of the abdomen submitted and correlated to prior abdomen 02/12/2016 Right-sided femoral dialysis catheter is present. There are dense vascular calcifications. Surgical c lips present in the right upper quadrant. No evident pneumoperitoneum or bowel obstruction. Lung base s show probable retrocardiac density, there are overlying cardiac leads. IMPRESSION: Possible left lower lobe atelectasis versus pneumonia or edema. Postprocedural changes.
[2017-01-19] MEDS ORDERED: HEPARIN SODIUM,PORCINE 5,000 UNIT/ML 1 ML VIAL SQ STA (11:55)
--- NOTE | 2017-01-19 13:32 | P.PN ---
Subjective Progress Note Date: 01/19/17 Principal diagnosis: Acute sepsis A 57-year-old female patient who presented to the hospital because of altered mental status. The patient apparently was getting more lethargic and sleepy and somewhat confused. The patient was also having fever on an outpatient basis. Blood Cultures have been sent and the dialysis site and apparently the blood cultures were told to be positive and for that reason the patient was sent into the hospital. The patient was given a dose of vancomycin and the patient's random vancomycin level is at 32. The patient has some limited diarrhea which has subsided. No nausea. No vomiting. No abdominal pain. No chest pain. She has an AV Ciaran the left upper extremity for dialysis. No cellulitis. No headaches. No neck stiffness. At the time of my evaluation, the patient was afebrile and her mentation was already improving. She opened her eyes patient moved all 4 extremities. She was able to recognize me as of taking care of this patient the past 4 issues related to her incisional disease and fluid overload. This is a very pleasant -French female patient with known history of end-stage renal disease on hemodialysis 3 times a week, Wednesdays and Fridays via a left upper extremity AV graft. The patient has been compliant to her treatment. The patient is known to have coronary artery disease. The patient has undergone previous angioplasty of the ramus intermedius artery artery in July 2016. He has been hospitalized in the past to the intensive care unit for hypertensive emergency and fluid overload. She was treated appropriately without any complications. She has a preserved LV function with an ejection fraction of 55%. She also has a moderate degree of mitral regurgitation. Cardiac catheterization was done during her latest admission and she has smaller vessel coronary artery disease. Not abnormal for any intervention. Note that she had a similar presentation in 08/01/2016 when she came in with pulmonary edema and fluid overload and hypertensive urgency with systolic blood pressure running in the 180-190 range. At that time the patient was placed on nitroglycerin drip which improved her blood pressure control. Subsequently she had [id number] dialysis with ultrafiltration and the pulmonary edema recovered. She has a preserved LV function based on previous echocardiograms. Please refer also to the most recent cardiac catheterization was done in July 2016. On 01/18/2017 the patient is being seen in follow-up. As mentioned, the patient got transferred to the intensive care unit. She was having fever. She was in mild DKA. She was having altered mentation and fever. She got dialyzed yesterday and dialysis was successful and the patient she had 2 L of fluid taken off. This morning she is awake and alert and she is following commands and answering questions appropriately. She is having fever and her T-max was 11.7. She was seen by infectious disease yesterday. Rocephin was discontinued and the patient was given a dose of Fortaz. Vancomycin random level today is at 22. The patient is still having negative blood cultures. No nausea no vomiting no abdominal pain. She was a straight cathed yesterday and would awaiting for the urine analysis and urine culture results also. No headache. No seizure activity. She is on an insulin drip at 0.5 units an hour and her blood sugars under better control for now. The chest x-ray from today is showing marked improvement in the pulmonary edema and there is no consolidation or airspace disease. On 01/19/2017, patient seems to be doing a bit better, she is presently receiving hemodialysis, remains on antibiotics as per Dr. Mares, patient is now on Merrem and vancomycin. Her hemoglobin is 6.1, and the patient will likely receive a unit of packed RBCs after dialysis today. Blood cultures and urine cultures remain pending at this point. Objective - Vital Signs Vital signs: Vital Signs Temp 99.0 F 01/19/17 13:00 Pulse 85 01/19/17 13:00 Resp 27 H 01/19/17 13:00 BP 138/58 01/19/17 13:00 Pulse Ox 97 01/19/17 13:00 Intake & Output 01/18/17 01/19/17 01/19/17 18:59 06:59 18:59 Intake Total 880.509 589.154 690 Output Total 0 0 0 Balance 880.509 589.154 690 Weight 66.8 kg Intake: IV 100 220 70 0.9 KVO 100 120 70 ACETAMINOPHEN IV (For NPO 50 ) 400 mg In Empty Bag 1 bag @ 400 mls/hr IVPB Q6HR PRN Rx#:[id number] Meropenem 500 mg In 50 Sodium Chloride 0.9% 50 ml @ 100 mls/hr IVPB ONCE STA Rx#:[id number] Intake, IV Titration 680.509 269.154 Amount ACETAMINOPHEN IV (For NPO 40 ) 400 mg In Empty Bag 1 bag @ 400 mls/hr IVPB Q6HR PRN Rx#:[id number] Amiodarone 450 mg In 133.2 250.00 Dextrose 5% in Water 250 ml @ 1 MG/MIN 33.33 mls/ hr IV .[id number] [facility] Rx#: [id number] Insulin Regular 100 unit 7.309 19.154 In Sodium Chloride 0.9% 100 ml @ 0.1 UNITS/KG/HR 7.32 mls/hr IV .[id number] [facility] Rx#:[id number] Sodium Chloride 0.9% 500 500 ml @ 999 mls/hr IV .Q31M ONE Rx#:[id number] Oral 100 100 Blood Product 620 Rc As-3 Unit 310 [id number] Rc As-3 Unit 310 [id number] Output: Urine 0 0 0 Other: Voiding Method Diaper Diaper # Voids 0 # Bowel Movements 1 1 - Exam Physical Exam: Revealed a 57-year-old female in no distress. HEENT:[Neck is supple.] [No neck masses.] [No thyromegaly.] [No JVD.] Chest: [Diminished breath sounds at the bases, no crackles, no rhonchi, no wheezes.] Cardiac Exam: [Normal S1 and S2, no S3 gallop, no murmur.] Abdomen: [Soft, nontender, no megaly, no rebound, no guarding, normal bowel sounds.] Extremities: [No clubbing, no edema, no cyanosis.] Neurological Exam: [No focal neurologic deficit.] Psychiatric: Normal mood and affect, normal mental status examination. Musculoskeletal: Normal range of motion, no muscle tenderness, no weakness. Lymphatics: No lymphadenopathy. - Labs CBC & Chem 7: 01/19/17 04:35 01/19/17 04:35 Labs: Abnormal Lab Results - Last 24 Hours (Table) 01/18/17 01/18/17 01/18/17 Range/Units 13:42 14:15 14:47 RBC (3.80-5.40) m/uL Hgb (11.4-16.0) gm/dL Hct (34.0-46.0) % MCV (80.0-100.0) fL MCHC (31.0-37.0) g/dL RDW (11.5-15.5) % Lymphocytes # (1.0-4.8) k/uL Sodium (137-145) mmol/L Chloride (98-107) mmol/L BUN (7-17) mg/dL Creatinine (0.52-1.04) mg/dL Glucose (74-99) mg/dL POC Glucose (mg/dL) 228 H 269 H (75-99) mg/dL Calcium (8.4-10.2) mg/dL Phosphorus (2.5-4.5) mg/dL Urine Appearance Cloudy H (Clear) Urine Protein 3+ H (Negative) Urine Glucose (UA) 3+ H (Negative) Urine Blood Moderate H (Negative) Ur Leukocyte Esterase Moderate H (Negative) Urine RBC 47 H (0-5) /hpf Urine WBC 124 H (0-5) /hpf Ur Squamous Epith Cells 95 H (0-4) /hpf Urine Bacteria Few H (None) /hpf Hyaline Casts 108 H (0-2) /lpf Urine Mucus Rare H (None) /hpf Urine Yeast (Budding) Few H (None) /hpf Stool Occult Blood (Negative) Crossmatch 01/18/17 01/18/17 01/18/17 Range/Units 15:46 16:28 17:53 RBC (3.80-5.40) m/uL Hgb (11.4-16.0) gm/dL Hct (34.0-46.0) % MCV (80.0-100.0) fL MCHC (31.0-37.0) g/dL RDW (11.5-15.5) % Lymphocytes # (1.0-4.8) k/uL Sodium (137-145) mmol/L Chloride (98-107) mmol/L BUN (7-17) mg/dL Creatinine (0.52-1.04) mg/dL Glucose (74-99) mg/dL POC Glucose (mg/dL) 151 H 209 H 169 H (75-99) mg/dL Calcium (8.4-10.2) mg/dL Phosphorus (2.5-4.5) mg/dL Urine Appearance (Clear) Urine Protein (Negative) Urine Glucose (UA) (Negative) Urine Blood (Negative) Ur Leukocyte Esterase (Negative) Urine RBC (0-5) /hpf Urine WBC (0-5) /hpf Ur Squamous Epith Cells (0-4) /hpf Urine Bacteria (None) /hpf Hyaline Casts (0-2) /lpf Urine Mucus (None) /hpf Urine Yeast (Budding) (None) /hpf Stool Occult Blood (Negative) Crossmatch 01/18/17 01/18/17 01/18/17 Range/Units 19:21 20:18 23:25 RBC (3.80-5.40) m/uL Hgb (11.4-16.0) gm/dL Hct (34.0-46.0) % MCV (80.0-100.0) fL MCHC (31.0-37.0) g/dL RDW (11.5-15.5) % Lymphocytes # (1.0-4.8) k/uL Sodium (137-145) mmol/L Chloride (98-107) mmol/L BUN (7-17) mg/dL Creatinine (0.52-1.04) mg/dL Glucose (74-99) mg/dL POC Glucose (mg/dL) 115 H 151 H 158 H (75-99) mg/dL Calcium (8.4-10.2) mg/dL Phosphorus (2.5-4.5) mg/dL Urine Appearance (Clear) Urine Protein (Negative) Urine Glucose (UA) (Negative) Urine Blood (Negative) Ur Leukocyte Esterase (Negative) Urine RBC (0-5) /hpf Urine WBC (0-5) /hpf Ur Squamous Epith Cells (0-4) /hpf Urine Bacteria (None) /hpf Hyaline Casts (0-2) /lpf Urine Mucus (None) /hpf Urine Yeast (Budding) (None) /hpf Stool Occult Blood (Negative) Crossmatch 01/19/17 01/19/17 01/19/17 Range/Units 00:05 01:06 03:07 RBC (3.80-5.40) m/uL Hgb (11.4-16.0) gm/dL Hct (34.0-46.0) % MCV (80.0-100.0) fL MCHC (31.0-37.0) g/dL RDW (11.5-15.5) % Lymphocytes # (1.0-4.8) k/uL Sodium (137-145) mmol/L Chloride (98-107) mmol/L BUN (7-17) mg/dL Creatinine (0.52-1.04) mg/dL Glucose (74-99) mg/dL POC Glucose (mg/dL) 188 H 164 H 154 H (75-99) mg/dL Calcium (8.4-10.2) mg/dL Phosphorus (2.5-4.5) mg/dL Urine Appearance (Clear) Urine Protein (Negative) Urine Glucose (UA) (Negative) Urine Blood (Negative) Ur Leukocyte Esterase (Negative) Urine RBC (0-5) /hpf Urine WBC (0-5) /hpf Ur Squamous Epith Cells (0-4) /hpf Urine Bacteria (None) /hpf Hyaline Casts (0-2) /lpf Urine Mucus (None) /hpf Urine Yeast (Budding) (None) /hpf Stool Occult Blood (Negative) Crossmatch 01/19/17 01/19/17 01/19/17 Range/Units 04:35 04:35 04:36 RBC 2.03 L (3.80-5.40) m/uL Hgb 6.1 L* D (11.4-16.0) gm/dL Hct 20.6 L (34.0-46.0) % MCV 101.2 H (80.0-100.0) fL MCHC 29.7 L (31.0-37.0) g/dL RDW 20.1 H (11.5-15.5) % Lymphocytes # 0.6 L (1.0-4.8) k/uL Sodium 135 L (137-145) mmol/L Chloride 96 L (98-107) mmol/L BUN 57 H (7-17) mg/dL Creatinine 8.80 H* (0.52-1.04) mg/dL Glucose 153 H (74-99) mg/dL POC Glucose (mg/dL) 161 H (75-99) mg/dL Calcium 7.5 L (8.4-10.2) mg/dL Phosphorus 6.7 H (2.5-4.5) mg/dL Urine Appearance (Clear) Urine Protein (Negative) Urine Glucose (UA) (Negative) Urine Blood (Negative) Ur Leukocyte Esterase (Negative) Urine RBC (0-5) /hpf Urine WBC (0-5) /hpf Ur Squamous Epith Cells (0-4) /hpf Urine Bacteria (None) /hpf Hyaline Casts (0-2) /lpf Urine Mucus (None) /hpf Urine Yeast (Budding) (None) /hpf Stool Occult Blood (Negative) Crossmatch 01/19/17 01/19/17 01/19/17 Range/Units 05:12 05:52 07:11 RBC (3.80-5.40) m/uL Hgb (11.4-16.0) gm/dL Hct (34.0-46.0) % MCV (80.0-100.0) fL MCHC (31.0-37.0) g/dL RDW (11.5-15.5) % Lymphocytes # (1.0-4.8) k/uL Sodium (137-145) mmol/L Chloride (98-107) mmol/L BUN (7-17) mg/dL Creatinine (0.52-1.04) mg/dL Glucose (74-99) mg/dL POC Glucose (mg/dL) 113 H 185 H 168 H (75-99) mg/dL Calcium (8.4-10.2) mg/dL Phosphorus (2.5-4.5) mg/dL Urine Appearance (Clear) Urine Protein (Negative) Urine Glucose (UA) (Negative) Urine Blood (Negative) Ur Leukocyte Esterase (Negative) Urine RBC (0-5) /hpf Urine WBC (0-5) /hpf Ur Squamous Epith Cells (0-4) /hpf Urine Bacteria (None) /hpf Hyaline Casts (0-2) /lpf Urine Mucus (None) /hpf Urine Yeast (Budding) (None) /hpf Stool Occult Blood (Negative) Crossmatch 01/19/17 01/19/17 01/19/17 Range/Units 08:04 08:50 08:50 RBC (3.80-5.40) m/uL Hgb (11.4-16.0) gm/dL Hct (34.0-46.0) % MCV (80.0-100.0) fL MCHC (31.0-37.0) g/dL RDW (11.5-15.5) % Lymphocytes # (1.0-4.8) k/uL Sodium (137-145) mmol/L Chloride (98-107) mmol/L BUN (7-17) mg/dL Creatinine (0.52-1.04) mg/dL Glucose (74-99) mg/dL POC Glucose (mg/dL) 156 H (75-99) mg/dL Calcium (8.4-10.2) mg/dL Phosphorus (2.5-4.5) mg/dL Urine Appearance (Clear) Urine Protein (Negative) Urine Glucose (UA) (Negative) Urine Blood (Negative) Ur Leukocyte Esterase (Negative) Urine RBC (0-5) /hpf Urine WBC (0-5) /hpf Ur Squamous Epith Cells (0-4) /hpf Urine Bacteria (None) /hpf Hyaline Casts (0-2) /lpf Urine Mucus (None) /hpf Urine Yeast (Budding) (None) /hpf Stool Occult Blood Positive H (Negative) Crossmatch See Detail 01/19/17 Range/Units 10:51 RBC (3.80-5.40) m/uL Hgb (11.4-16.0) gm/dL Hct (34.0-46.0) % MCV (80.0-100.0) fL MCHC (31.0-37.0) g/dL RDW (11.5-15.5) % Lymphocytes # (1.0-4.8) k/uL Sodium (137-145) mmol/L Chloride (98-107) mmol/L BUN (7-17) mg/dL Creatinine (0.52-1.04) mg/dL Glucose (74-99) mg/dL POC Glucose (mg/dL) 120 H (75-99) mg/dL Calcium (8.4-10.2) mg/dL Phosphorus (2.5-4.5) mg/dL Urine Appearance (Clear) Urine Protein (Negative) Urine Glucose (UA) (Negative) Urine Blood (Negative) Ur Leukocyte Esterase (Negative) Urine RBC (0-5) /hpf Urine WBC (0-5) /hpf Ur Squamous Epith Cells (0-4) /hpf Urine Bacteria (None) /hpf Hyaline Casts (0-2) /lpf Urine Mucus (None) /hpf Urine Yeast (Budding) (None) /hpf Stool Occult Blood (Negative) Crossmatch Microbiology - Last 24 Hours (Table) 01/15/17 16:11 Blood Culture - Preliminary Blood No Growth after 72 hours 01/18/17 14:15 Urine Culture - Preliminary Urine,Catheterized Assessment and Plan Plan: 1 altered mentation along with fever. Rule out underlying septicemia nontender the patient had possible cultures on outpatient basis. The exact source of the infection is not clear. The patient will be started on a combination of Rocephin and vancomycin pending further cultures. Presently on vancomycin and Merrem. Currently hemodynamically stable. Mental status is improving. The patient will be moved to the intensive care unit for further monitoring. On 01/18/2017 the patient is not having any significant mental status change. She is however having episodes of fever. She was given vancomycin and Fortaz. ID is on the case. Cultures of been all negative. No clear source of infection at this point. ID is on the case. Hemodynamically she is maintaining her on blood pressure and she has not required any pressors. 2 acute febrile illness on that investigation must see discussion above 3 coronary artery disease status post angioplasty of the ramus intermedius branch 4 End stage renal disease on hemodialysis, the patient underwent dialysis yesterday with 2 L ultrafiltration. Chest x-ray shows subsequent improvement acute pulmonary edema. 5 diabetes mellitus with poorly controlled blood sugars currently on insulin drip for blood sugar control the patient had some ketones and mild anion gap metabolic acidosis with an anion gap of 23 on 01/18/2017 the patient is on insulin drip at 0.5 units an hour. The patient' s anion gap was improved down to 17 and the bicarb level is up to 23. Oral intake is not up to par and for that reason we decided to keep the insulin drip for another 24 hours. 6 hypertensive with a poorly controlled blood pressure 7 hyperlipidemia 8 CVA/TIA 9 previous history of GI bleeding 10. peripheral Vascular disease 11 diverticulosis 12 osteoarthritis 13 CHF with a component of fluid overload/pulmonary edema with elevated BNP level. The patient is not having any major respiratory distress and the patient will be having dialysis today. BNP level has been chronically elevated. On today's chest x-ray there is marked improvement in volume status and the pulmonary edema that was discussed earlier as the patient had a 2 L of ultrafiltration. Recommendation: Patient seems to be doing well overall today on 01/19/2017, I would likely transfer the patient out of the ICU to a regular medical floor, continue antibiotics as per infectious disease, await the final cultures, and antibiotics will be adjusted accordingly. We'll continue to follow. Time with Patient: Less than 30
[2017-01-19] MEDS: FOLIC ACID-VIT B COMPLEX-VIT C 1 CAP PO SCH (14:05)
[2017-01-19] MEDS: MIDODRINE 5 MG TAB PO SCH (14:05)
[2017-01-19] MEDS: GABAPENTIN 100 MG CAP PO SCH ×3 (14:05→21:36)
[2017-01-19] MEDS: ASPIRIN 81 MG PO SCH (14:06)
[2017-01-19] MEDS: CLOPIDOGREL 75 MG TAB PO SCH (14:06)
[2017-01-19 14:45] LABS: Anisocytosis Slight; Basophils % (A) 0 %; CH 30.3; CHCM 32.8; Eosinophils % (A) 0 %; HCT 30.4 % (34.0-46.0); HDW 3.95; Hypochromasia Slight; Luc % (Auto) 3; Lymphocytes # (A) 0.2 k/uL (1.0-4.8); Lymphocytes % (A) 3 %; MCHC 32.1 g/dL (31.0-37.0); Macrocytosis Slight; Mean Platelet Volume 8.2; Monocytes # (A) 0.1 k/uL (0-1.0); Monocytes % (A) 2 %; Neutrophils % (A) 93 %; Poikilocytosis Slight; RBC 3.25 m/uL (3.80-5.40); RDW 19.3 % (11.5-15.5); WBC 7.6 k/uL (3.8-10.6); WBC (Perox) 8.21
[2017-01-19 15:00] LABS: HGB 9.8 gm/dL (11.4-16.0)
[2017-01-19 15:01] LABS: MCV 93.5 fL (80.0-100.0)
[2017-01-19] MEDS: METOPROLOL SUCCINATE (ER) 50 MG TAB.ER.24H PO SCH (15:01)
[2017-01-19 15:45] LABS: Glucose,Whole Blood 162 mg/dL (75-99)
[2017-01-19] MEDS: amLODIPine 5 MG TAB PO SCH (16:53)
[2017-01-19 17:41] LABS: Glucose,Whole Blood 177 mg/dL (75-99)
[2017-01-19] MEDS: MEROPENEM 1 GM in SODIUM CHLORIDE 0.9% 100 ML IVPB SCH (17:47)
[2017-01-19] MEDS: INSULIN LISPRO (humaLOG) 300 UNIT/3 ML VIAL SQ SCH ×2 (17:57→21:36)
[2017-01-19] MEDS: ALBUTEROL NEBULIZED 2.5 MG/3 ML INHALATION PRN (19:31)
[2017-01-19 21:01] LABS: Glucose,Whole Blood 170 mg/dL (75-99)
--- NOTE | 2017-01-19 21:15 | PN ---
PROGRESS NOTE The patient is seen for followup for end-stage renal disease. Over the weekend, the patient had worsening mental status and respiratory status and was transferred to the ICU. Her chest x-ray has improved post dialysis. This morning, her hemoglobin was at 6.1 g/dL. There has been no obvious gastrointestinal bleed. The patient's mental status still remains depressed. She is arousable but goes back to sleep. She did recognize me. EXAMINATION: Blood pressure was 108/41. This morning her heart rate about 78 per minute. Patient continues to have fever. Examination of the heart S1, S2. Examination of the lungs decreased breath sounds at bases. Abdomen is soft, nontender. Exam of lower extremities shows no evidence of edema. OUTSIDE SALES exam shows the patient is slow to respond but did recognize me. She is moving all 4 extremities. LABS SHOW: Hemoglobin 6.1 earlier today. Potassium was at 3.6 mEq/L. ASSESSMENT: 1. End-stage renal disease, on hemodialysis on a Thursday, Thursday, Thursday schedule. Patient will be dialyzed today. 2. Severe anemia. No obvious bleeding. Will check stool for occult blood. Patient will also be transfused 2 units packed RBCs as she is hypotensive. 3. Fever, etiology unclear. Patient is being followed by ID. Consider an LP. We will also image the abdomen as it appears distended. 4. Fluid overload/congestive heart failure, currently improved. PLAN: Hemodialysis today. Transfuse 2 units packed RBCs. Consider LP as we do not have a clear source for the fever yet. MMODL / IJN: [id number] /
--- NOTE | 2017-01-19 21:29 | P.PN ---
Subjective Progress Note Date: 01/19/17 Principal diagnosis: Sepsis 57-year-old Afro-Thai female presents to the emergency center because there was difficulties with her mental status. The family relate that she developed confusion and was quite lethargic. She has a long-standing history of end- stage renal disease on hemodialysis through the local dialysis center in our community. When she was at her last dialysis center they were concerned that she had evidence of sepsis and was given a dose of vancomycin. Other notation of developing some diarrhea she was feeling relatively well until the onset of the significant altered mentation as well as a high-grade fever. Consult her family brought her to the emergency center where she was admitted at the present time with a temperature of 100 medical floor but had worsening of her status developed evidence of diabetic ketoacidosis was transferred to the intensive care unit. Because of ongoing sepsis infectious diseases consultation was requested. The patient currently has been seen by the dialysis nurse dialysis has started. And quite surprising with the start of dialysis she's not feeling considerably better. She was awake alert oriented to person and place. She remembers the dialysis nurses name without difficulty. She was able to relate the current history. Nursing staff relates that a few hours ago she was unable to give any history at all. At this time she just feels poorly with a high-grade fever. She has some generalized body ache. Her appetite is been poor. She has some nausea without emesis. She's had a a headache and it's not severe at this point in time. She 's had no rigor. If the time of evaluation today she is upright relates that she'd like to have some fruit. She is able to relate that she hasn't [facility]. She is in [facility]. It is 2017. But is not able to relate the name of the current president but relates that she does not like them. Objective - Vital Signs Vital signs: Vital Signs Temp 99.7 F H 01/19/17 20:00 Pulse 72 01/19/17 21:00 Resp 17 01/19/17 21:00 BP 114/41 01/19/17 21:00 Pulse Ox 100 01/19/17 21:00 Intake & Output 01/19/17 01/19/17 01/20/17 06:59 18:59 06:59 Intake Total 261.590 4333 30 Output Total 0 0 0 Balance 364.038 0317 30 Weight 66.8 kg Intake: IV 220 120 30 0.9 KVO 120 120 30 ACETAMINOPHEN IV (For NPO 50 ) 400 mg In Empty Bag 1 bag @ 400 mls/hr IVPB Q6HR PRN Rx#:[id number] Meropenem 500 mg In 50 Sodium Chloride 0.9% 50 ml @ 100 mls/hr IVPB ONCE STA Rx#:[id number] Intake, IV Titration 269.154 Amount Amiodarone 450 mg In 250.00 Dextrose 5% in Water 250 ml @ 1 MG/MIN 33.33 mls/ hr IV .[id number] [facility] Rx#: [id number] Insulin Regular 100 unit 19.154 In Sodium Chloride 0.9% 100 ml @ 0.1 UNITS/KG/HR 7.32 mls/hr IV .[id number] [facility] Rx#:[id number] Oral 100 Blood Product 1240 Rc As-3 Unit 310 [id number] Rc As-3 Unit 310 [id number] Output: Urine 0 0 0 Other: Voiding Method Diaper # Voids 0 # Bowel Movements 1 1 1 - Exam Pleasant 57-year-old woman who is quite comfortable at this time. She's feeling better now that her fevers resolved. The dutch odor of her ketosis is definitely improved, but does still have some residual on her breath. HEENT: Anicteric conjunctiva are pink and moist nasal mucosa grossly intact without significant lesions, there is no thrush. Evidence of bilateral cataract extraction and lens implantation Neck: The neck is supple without significant lymphadenopathy or thyromegaly. Lungs: They're symmetrical air entry, there is evidence of only few basilar crackles. No bronchial sounds are heard. No dullness or egophony. Heart: Regular rate and rhythm with an audible S1-S2, no S3 soft S4 and the hum of the fistula is easily heard. There is no significant murmur click or rub, PMI was nondisplaced. Abdomen: Positive bowel sounds soft and nontender without palpable masses or organomegaly. There was no guarding or rebound. Extremities: The upper extremities have excellent pulses they are symmetric, no significant petechiae or telangiectasia. No splinter hemorrhages were noted. The lower extremities are free from significant edema. The peripheral pulses were 2+ and symmetric. Neuro: Patient is now much more awake and alert. Shorted to person and place and year. Appears to be have somewhat of a waxing status in that she does very well around the time of dialysis. Patient is not in fever overnight that has resolved. However after evaluation the nursing staff relates that she again had difficulties with fever, central line was placed by pulmonology for further intervention. - Labs CBC & Chem 7: 01/19/17 14:30 01/19/17 04:35 Labs: Abnormal Lab Results - Last 24 Hours (Table) 01/18/17 01/19/17 01/19/17 Range/Units 23:25 00:05 01:06 RBC (3.80-5.40) m/uL Hgb (11.4-16.0) gm/dL Hct (34.0-46.0) % MCV (80.0-100.0) fL MCHC (31.0-37.0) g/dL RDW (11.5-15.5) % Lymphocytes # (1.0-4.8) k/uL Sodium (137-145) mmol/L Chloride (98-107) mmol/L BUN (7-17) mg/dL Creatinine (0.52-1.04) mg/dL Glucose (74-99) mg/dL POC Glucose (mg/dL) 158 H 188 H 164 H (75-99) mg/dL Calcium (8.4-10.2) mg/dL Phosphorus (2.5-4.5) mg/dL Stool Occult Blood (Negative) Crossmatch 01/19/17 01/19/17 01/19/17 Range/Units 03:07 04:35 04:35 RBC 2.03 L (3.80-5.40) m/uL Hgb 6.1 L* D (11.4-16.0) gm/dL Hct 20.6 L (34.0-46.0) % MCV 101.2 H (80.0-100.0) fL MCHC 29.7 L (31.0-37.0) g/dL RDW 20.1 H (11.5-15.5) % Lymphocytes # 0.6 L (1.0-4.8) k/uL Sodium 135 L (137-145) mmol/L Chloride 96 L (98-107) mmol/L BUN 57 H (7-17) mg/dL Creatinine 8.80 H* (0.52-1.04) mg/dL Glucose 153 H (74-99) mg/dL POC Glucose (mg/dL) 154 H (75-99) mg/dL Calcium 7.5 L (8.4-10.2) mg/dL Phosphorus 6.7 H (2.5-4.5) mg/dL Stool Occult Blood (Negative) Crossmatch 01/19/17 01/19/17 01/19/17 Range/Units 04:36 05:12 05:52 RBC (3.80-5.40) m/uL Hgb (11.4-16.0) gm/dL Hct (34.0-46.0) % MCV (80.0-100.0) fL MCHC (31.0-37.0) g/dL RDW (11.5-15.5) % Lymphocytes # (1.0-4.8) k/uL Sodium (137-145) mmol/L Chloride (98-107) mmol/L BUN (7-17) mg/dL Creatinine (0.52-1.04) mg/dL Glucose (74-99) mg/dL POC Glucose (mg/dL) 161 H 113 H 185 H (75-99) mg/dL Calcium (8.4-10.2) mg/dL Phosphorus (2.5-4.5) mg/dL Stool Occult Blood (Negative) Crossmatch 01/19/17 01/19/17 01/19/17 Range/Units 07:11 08:04 08:50 RBC (3.80-5.40) m/uL Hgb (11.4-16.0) gm/dL Hct (34.0-46.0) % MCV (80.0-100.0) fL MCHC (31.0-37.0) g/dL RDW (11.5-15.5) % Lymphocytes # (1.0-4.8) k/uL Sodium (137-145) mmol/L Chloride (98-107) mmol/L BUN (7-17) mg/dL Creatinine (0.52-1.04) mg/dL Glucose (74-99) mg/dL POC Glucose (mg/dL) 168 H 156 H (75-99) mg/dL Calcium (8.4-10.2) mg/dL Phosphorus (2.5-4.5) mg/dL Stool Occult Blood (Negative) Crossmatch See Detail 01/19/17 01/19/17 01/19/17 Range/Units 08:50 10:51 14:30 RBC 3.25 L (3.80-5.40) m/uL Hgb 9.8 L D (11.4-16.0) gm/dL Hct 30.4 L (34.0-46.0) % MCV (80.0-100.0) fL MCHC (31.0-37.0) g/dL RDW 19.3 H (11.5-15.5) % Lymphocytes # 0.2 L (1.0-4.8) k/uL Sodium (137-145) mmol/L Chloride (98-107) mmol/L BUN (7-17) mg/dL Creatinine (0.52-1.04) mg/dL Glucose (74-99) mg/dL POC Glucose (mg/dL) 120 H (75-99) mg/dL Calcium (8.4-10.2) mg/dL Phosphorus (2.5-4.5) mg/dL Stool Occult Blood Positive H (Negative) Crossmatch 01/19/17 01/19/17 01/19/17 Range/Units 15:44 17:36 20:59 RBC (3.80-5.40) m/uL Hgb (11.4-16.0) gm/dL Hct (34.0-46.0) % MCV (80.0-100.0) fL MCHC (31.0-37.0) g/dL RDW (11.5-15.5) % Lymphocytes # (1.0-4.8) k/uL Sodium (137-145) mmol/L Chloride (98-107) mmol/L BUN (7-17) mg/dL Creatinine (0.52-1.04) mg/dL Glucose (74-99) mg/dL POC Glucose (mg/dL) 162 H 177 H 170 H (75-99) mg/dL Calcium (8.4-10.2) mg/dL Phosphorus (2.5-4.5) mg/dL Stool Occult Blood (Negative) Crossmatch Microbiology - Last 24 Hours (Table) 01/18/17 16:32 Blood Culture - Preliminary Blood No Growth after 24 hours 01/15/17 16:11 Blood Culture - Preliminary Blood No Growth after 96 hours 01/18/17 14:15 Urine Culture - Final Urine,Catheterized Linda sp,not albicans/galbr Laboratory Results WBC 7.6 k/uL (3.8-10.6) 01/19/17 14:30 RBC 3.25 m/uL (3.80-5.40) L 01/19/17 14:30 Hgb 9.8 gm/dL (11.4-16.0) L D 01/19/17 14:30 Hct 30.4 % (34.0-46.0) L 01/19/17 14:30 MCV 93.5 fL (80.0-100.0) D 01/19/17 14:30 MCH 30.0 pg (25.0-35.0) 01/19/17 14:30 MCHC 32.1 g/dL (31.0-37.0) 01/19/17 14:30 RDW 19.3 % (11.5-15.5) H 01/19/17 14:30 Plt Count 167 k/uL (150-450) 01/19/17 14:30 Neutrophils % 93 % 01/19/17 14:30 Neutrophils % (Manual) 60 % 01/18/17 05:32 Band Neutrophils % 30 % 01/18/17 05:32 Lymphocytes % 3 % 01/19/17 14:30 Lymphocytes % (Manual) 7 % 01/18/17 05:32 Monocytes % 2 % 01/19/17 14:30 Monocytes % (Manual) 4 % 01/18/17 05:32 Eosinophils % 0 % 01/19/17 14:30 Eosinophils % (Manual) 1 % 01/18/17 05:32 Basophils % 0 % 01/19/17 14:30 Neutrophils # 7.0 k/uL (1.3-7.7) 01/19/17 14:30 Neutrophils # (Manual) 3.80 k/uL (1.3-7.7) 01/18/17 05:32 Lymphocytes # 0.2 k/uL (1.0-4.8) L 01/19/17 14:30 Lymphocytes # (Manual) 0.30 k/uL (1.0-4.8) L 01/18/17 05:32 Monocytes # 0.1 k/uL (0-1.0) 01/19/17 14:30 Monocytes # (Manual) 0.17 k/uL (0-1.0) 01/18/17 05:32 Eosinophils # 0.0 k/uL (0-0.7) 01/19/17 14:30 Eosinophils # (Manual) 0.04 k/uL (0-0.7) 01/18/17 05:32 Basophils # 0.0 k/uL (0-0.2) 01/19/17 14:30 Nucleated RBCs 0 /100 WBC (0-0) 01/18/17 05:32 Polychromasia Present 01/18/17 05:32 Hypochromasia Slight 01/19/17 14:30 Poikilocytosis Slight 01/19/17 14:30 Poikilocytosis (manual Present 01/18/17 05:32 Anisocytosis Slight 01/19/17 14:30 Macrocytosis Slight 01/19/17 14:30 PT 10.7 sec (9.0-12.0) 01/19/17 04:35 INR 1.1 (<1.2) 01/19/17 04:35 APTT 23.0 sec (22.0-30.0) 01/15/17 16:11 Sample Site r rad 01/16/17 16:17 ABG pH 7.49 (7.35-7.45) H 01/16/17 16:17 ABG pCO2 29 mmHg (35-45) L 01/16/17 16:17 ABG pO2 79 mmHg (83-108) L 01/16/17 16:17 ABG HCO3 22 mmol/L (21-25) 01/16/17 16:17 ABG Total CO2 23 mmol/L (19-24) 01/16/17 16:17 ABG O2 Saturation 96.8 % (94-97) 01/16/17 16:17 ABG Base Excess -0.7 mmol/L 01/16/17 16:17 FiO2 45 % 01/16/17 16:17 Sodium 135 mmol/L (137-145) L 01/19/17 04:35 Potassium 3.6 mmol/L (3.5-5.1) 01/19/17 04:35 Chloride 96 mmol/L (98-107) L 01/19/17 04:35 Carbon Dioxide 24 mmol/L (22-30) 01/19/17 04:35 Anion Gap 15 mmol/L 01/19/17 04:35 BUN 57 mg/dL (7-17) H 01/19/17 04:35 Creatinine 8.80 mg/dL (0.52-1.04) H* 01/19/17 04:35 Est GFR (MDRD) Af Amer 6 (>60 ml/min/1.73 sqM) 01/19/17 04:35 Est GFR (MDRD) Non-Af 5 (>60 ml/min/1.73 sqM) 01/19/17 04:35 Glucose 153 mg/dL (74-99) H 01/19/17 04:35 POC Glucose (mg/dL) 170 mg/dL (75-99) H 01/19/17 20:59 POC Glu Manager Critical Care Unit ID Sintia Hansen 01/19/17 20:[address] Glu mg/dL 183 01/16/17 22:20 Hemoglobin A1c 8.0 % (4.0-6.0) H 01/16/17 22:20 Plasma Lactic Acid Tomas 1.7 mmol/L (0.7-2.0) 01/17/17 07:48 Calcium 7.5 mg/dL (8.4-10.2) L 01/19/17 04:35 Phosphorus 6.7 mg/dL (2.5-4.5) H 01/19/17 04:35 Magnesium 2.0 mg/dL (1.6-2.3) 01/19/17 04:35 Iron 27 ug/dL (50-170) L 01/17/17 05:37 TIBC 191 ug/dL (228-460) L 01/17/17 05:37 Iron Saturation 14.14 (12.00-45.00) 01/17/17 05:37 Ferritin 9932.8 ng/mL (10.0-291.0) H 01/17/17 05:37 Total Bilirubin 0.5 mg/dL (0.2-1.3) 01/15/17 16:11 AST 42 U/L (14-36) H 01/15/17 16:11 ALT 37 U/L (9-52) 01/15/17 16:11 Alkaline Phosphatase 98 U/L (38-126) 01/15/17 16:11 Ammonia <9 umol/L (<30) 01/16/17 22:20 Total Creatine Kinase 76 U/L (30-135) 01/15/17 16:11 CK-MB (CK-2) 0.8 ng/mL (0.0-2.4) 01/15/17 16:11 CK-MB (CK-2) Rel Index 1.1 01/15/17 16:11 Troponin I 0.182 ng/mL (0.000-0.034) H* 01/16/17 03:13 NT-Pro-B Natriuret Pep 90569 pg/mL 01/16/17 08:00 Total Protein 6.5 g/dL (6.3-8.2) 01/15/17 16:11 Albumin 3.7 g/dL (3.5-5.0) 01/15/17 16:11 Urine Color Yellow 01/18/17 14:15 Urine Appearance Cloudy (Clear) H 01/18/17 14:15 Urine pH 7.0 (5.0-8.0) 01/18/17 14:15 Ur Specific Mcgehee 1.014 (1.001-1.035) 01/18/17 14:15 Urine Protein 3+ (Negative) H 01/18/17 14:15 Urine Glucose (UA) 3+ (Negative) H 01/18/17 14:15 Urine Ketones Negative (Negative) 01/18/17 14:15 Urine Blood Moderate (Negative) H 01/18/17 14:15 Urine Nitrite Negative (Negative) 01/18/17 14:15 Urine Bilirubin Negative (Negative) 01/18/17 14:15 Urine Urobilinogen <2.0 mg/dL (<2.0) 01/18/17 14:15 Ur Leukocyte Esterase Moderate (Negative) H 01/18/17 14:15 Urine RBC 47 /hpf (0-5) H 01/18/17 14:15 Urine WBC 124 /hpf (0-5) H 01/18/17 14:15 Ur Squamous Epith Cells 95 /hpf (0-4) H 01/18/17 14:15 Urine Bacteria Few /hpf (None) H 01/18/17 14:15 Hyaline Casts 108 /lpf (0-2) H 01/18/17 14:15 Urine Mucus Rare /hpf (None) H 01/18/17 14:15 Urine Yeast (Budding) Few /hpf (None) H 01/18/17 14:15 Stool Occult Blood Positive (Negative) H 01/19/17 08:50 Random Vancomycin 21.9 ug/mL 01/18/17 07:13 Acetone, Qual Positive (Negative) 01/16/17 08:00 C. difficile (EIA) Intrp Negative (Negative) 01/19/17 05:00 Influenza Type A RNA Not Detected (Not Detectd) 01/15/17 15:50 Influenza Type B (PCR) Not Detected (Not Detectd) 01/15/17 15:50 Blood Type A Positive 01/19/17 08:50 Blood Type Recheck No 01/19/17 08:50 Antibody Screen POSITIVE 01/19/17 08:50 Antibody Identification Anti-K 01/19/17 08:50 Direct Antiglob Test Negative 01/19/17 08:50 Crossmatch See Detail 01/19/17 08:50 Spec Expiration Date 01/22/2017 66801/19/17 08:50 Microbiology 01/18/17 16:32 Blood Blood Culture - Preliminary No Growth after 24 hours 01/15/17 16:11 Blood Blood Culture - Preliminary No Growth after 96 hours 01/18/17 14:15 Urine,Catheterized Urine Culture - Final Linda sp,not albicans/galbr Assessment and Plan (1) Altered mental status Current Visit: Yes Status: Acute Code(s): R41.82 - ALTERED MENTAL STATUS, UNSPECIFIED SNOMED Code(s): 521724851 (2) Sepsis Narrative/Plan: 57-year-old female presents to emergency center with her family because of some altered mentation. At presentation is evidence of fever and concerns for sepsis. There is some data that is provided that at the dialysis center she had evidence of a positive blood culture. Intravenous antibiotic therapy was initiated the dialysis center with vancomycin. She's now presented to Hospital. There is evidence of worsening of her status. She developed diabetic ketoacidosis which further worsened her metabolic state. He also worsened her neurological state. Her DKA is now under much better control and insulin drip is newly turned off. The gap is closed. And she started to feel considerably better. However this ongoing concerns underlying sepsis. With her dialysis status vancomycin is appropriate however we'll alter ceftriaxone to ceftazidime ensure that were covering for Pseudomonas which is a more common pathogen in this population. Follow-up cultures are in process. Her DKA is being actively treated insulin drip is being currently tapered at this time. Was having some improvement but again is febrile again. Blood and urine cultures are process. Negative so far. At this time continue with vancomycin as well as ceftaxidime for coverage of staph and strep and pseudomonas. It does appear her significant ketosis is improving but not completely resolved. Nephrology is following and will address her significant anemia. Patient had some further fever last evening. Antimicrobial therapy was altered from Fortaz to meropenem. Repeat cultures were requested. Urine cultures in process. Prior blood cultures are negative. He has a at this time she is quite clear and the nurses quite surprised with how conversational she is. Current Visit: Yes Status: Acute Code(s): A41.9 - SEPSIS, UNSPECIFIED ORGANISM SNOMED Code(s): 96710198 (3) DKA (diabetic ketoacidoses) Current Visit: No Status: Acute Code(s): E13.10 - OTH DIABETES MELLITUS WITH KETOACIDOSIS WITHOUT COMA SNOMED Code(s): 370247708 (4) Chronic kidney disease with end stage renal failure on dialysis Current Visit: Yes Status: Acute Code(s): N18.6 - END STAGE RENAL DISEASE; Z99.2 - DEPENDENCE ON RENAL DIALYSIS SNOMED Code(s): 774824894
[2017-01-19] MEDS: AMIODARONE 200 MG TAB PO SCH (21:36)
[2017-01-19] MEDS: ATORVASTATIN 40 MG TAB PO SCH (21:36)
--- NOTE | 2017-01-19 23:12 | P.PN ---
Subjective Progress Note Date: 01/19/17 Principal diagnosis: Sepsis Patient is a 56-year-old female with a past medical history of ESRD on hemodialysis MWF via AV graft, hypertension, diabetes type 2 history of coronary disease and recently diagnosed atrial fibrillation and was started on anticoagulation with Coumadin presented to the ER due to altered mental status. Patient had hemodialysis last night. Patient was supposed to be confused at the time. Patient woke up next morning with more confusion and also noted to have fevers. Patient's family member says that blood culture set dialysis Center showed infection and patient was sent to Hospital. Otherwise patient seems to be lethargic and confused but oriented 2. Denied any complaints of chest pain or short of breath. No nausea or nausea vomiting or diarrhea. Patient had one episode of diarrhea and C. diff was sent. Today afternoon patient became more confused and shortness of breath requiring oxygen. Patient was placed on Ventimask and repeat labs were attempted but could not get IV access. Patient was placed on telemetry monitoring and ABGs will be obtained. Patient had hemodialysis today. Chest x-ray on admission showed fluid overload BNP greater than 80,000 on admission. Patient was recently admitted to the hospital with a GI bleed/darker stools. Patient was started back on anti-coagulation after a week and current hemoglobin is 7.9. Otherwise patient does not have any fever or chills now . Blood cultures were sent. No leukocytosis noted. Patient was found to have hyperglycemia and was started on insulin drip. Her gap 23 and bicarbonate 19. Acetone positive. 01/17/2017 Patient seems to be confused on and off. Patient currently is to be febrile today. Blood cultures are negative so far. Patient denied any worsening short of breath. No complaints of chest pain. No diarrhea no abdominal pain. Anion gap closed. Insulin drip has been discontinued. Patient will be transferred to MICU due to patient condition of fever and altered mental status. 01/18/2017 Patient was improving clinically decreased orientation but today morning patient became febrile again. Blood cultures is negative so far. Patient was on vancomycin and ceftazidime. Ceftazidime was changed to meropenem as widely recommendations. Patient is still having mild DKA. Patient did have hemodialysis today with 2 l ultrafiltration. Chest x-ray showed improvement in CHF . Patient denied any short of breath. No complaints of chest pain. No nausea vomiting or abdominal pain. 01/19/2017 Patient is more awake and oriented today. Fever improved. Continue on antibiotics in the form of vancomycin and meropenem. ID and pulmonary is on board. Patient denied any complaints of chest pain or short of breath. No nausea vomiting. Hemoglobin found to be 6.1 and will be getting 1 unit PRBC during hemodialysis today. All other review of systems negative except the above Current medications reviewed Objective - Vital Signs Vital signs: Vital Signs Temp 99.7 F H 01/19/17 20:00 Pulse 78 01/19/17 22:00 Resp 18 01/19/17 22:00 BP 117/42 01/19/17 22:00 Pulse Ox 100 01/19/17 22:00 Intake & Output 01/19/17 01/19/17 01/20/17 06:59 18:59 06:59 Intake Total 484.146 1806 40 Output Total 0 0 0 Balance 420.780 9747 40 Weight 66.8 kg Intake: IV 220 120 40 0.9 KVO 120 120 40 ACETAMINOPHEN IV (For NPO 50 ) 400 mg In Empty Bag 1 bag @ 400 mls/hr IVPB Q6HR PRN Rx#:[id number] Meropenem 500 mg In 50 Sodium Chloride 0.9% 50 ml @ 100 mls/hr IVPB ONCE STA Rx#:[id number] Intake, IV Titration 269.154 Amount Amiodarone 450 mg In 250.00 Dextrose 5% in Water 250 ml @ 1 MG/MIN 33.33 mls/ hr IV .[id number] [facility] Rx#: [id number] Insulin Regular 100 unit 19.154 In Sodium Chloride 0.9% 100 ml @ 0.1 UNITS/KG/HR 7.32 mls/hr IV .[id number] [facility] Rx#:[id number] Oral 100 Blood Product 1240 Rc As-3 Unit 310 [id number] Rc As-3 Unit 310 [id number] Output: Urine 0 0 0 Other: Voiding Method Diaper # Voids 0 # Bowel Movements 1 1 1 - Exam PHYSICAL EXAMINATION: Patient is lying in the bed comfortably, no acute distress, awake alert but confused and is oriented. HEENT: Normocephalic. Neck is supple. Pupils reactive. Nostrils clear. Oral cavity is moist. Ears reveal no drainage. Neck reveals no JVD, carotid bruits, or thyromegaly. CHEST EXAMINATION: Trachea is central. Symmetrical expansion. Bilateral diminished air entry basally. No wheezing CARDIAC: Normal S1, S2 with no gallops. No murmurs ABDOMEN: Soft. Bowel sounds normal. No organomegaly. No abdominal bruits. Extremities: reveal no edema. No clubbing or cyanosis Neurologically awake, alert, oriented x3 with well-coordinated movements. No focal deficits noted Skin: No rash or skin lesions. Psychiatric: Operative. Nonsuicidal Musculoskeletal: No joint swelling or deformity. Normal range of motion. - Labs CBC & Chem 7: 01/19/17 14:30 01/19/17 04:35 Labs: Abnormal Lab Results - Last 24 Hours (Table) 01/18/17 01/19/17 01/19/17 Range/Units 23:25 00:05 01:06 RBC (3.80-5.40) m/uL Hgb (11.4-16.0) gm/dL Hct (34.0-46.0) % MCV (80.0-100.0) fL MCHC (31.0-37.0) g/dL RDW (11.5-15.5) % Lymphocytes # (1.0-4.8) k/uL Sodium (137-145) mmol/L Chloride (98-107) mmol/L BUN (7-17) mg/dL Creatinine (0.52-1.04) mg/dL Glucose (74-99) mg/dL POC Glucose (mg/dL) 158 H 188 H 164 H (75-99) mg/dL Calcium (8.4-10.2) mg/dL Phosphorus (2.5-4.5) mg/dL Stool Occult Blood (Negative) Crossmatch 01/19/17 01/19/17 01/19/17 Range/Units 03:07 04:35 04:35 RBC 2.03 L (3.80-5.40) m/uL Hgb 6.1 L* D (11.4-16.0) gm/dL Hct 20.6 L (34.0-46.0) % MCV 101.2 H (80.0-100.0) fL MCHC 29.7 L (31.0-37.0) g/dL RDW 20.1 H (11.5-15.5) % Lymphocytes # 0.6 L (1.0-4.8) k/uL Sodium 135 L (137-145) mmol/L Chloride 96 L (98-107) mmol/L BUN 57 H (7-17) mg/dL Creatinine 8.80 H* (0.52-1.04) mg/dL Glucose 153 H (74-99) mg/dL POC Glucose (mg/dL) 154 H (75-99) mg/dL Calcium 7.5 L (8.4-10.2) mg/dL Phosphorus 6.7 H (2.5-4.5) mg/dL Stool Occult Blood (Negative) Crossmatch 01/19/17 01/19/17 01/19/17 Range/Units 04:36 05:12 05:52 RBC (3.80-5.40) m/uL Hgb (11.4-16.0) gm/dL Hct (34.0-46.0) % MCV (80.0-100.0) fL MCHC (31.0-37.0) g/dL RDW (11.5-15.5) % Lymphocytes # (1.0-4.8) k/uL Sodium (137-145) mmol/L Chloride (98-107) mmol/L BUN (7-17) mg/dL Creatinine (0.52-1.04) mg/dL Glucose (74-99) mg/dL POC Glucose (mg/dL) 161 H 113 H 185 H (75-99) mg/dL Calcium (8.4-10.2) mg/dL Phosphorus (2.5-4.5) mg/dL Stool Occult Blood (Negative) Crossmatch 01/19/17 01/19/17 01/19/17 Range/Units 07:11 08:04 08:50 RBC (3.80-5.40) m/uL Hgb (11.4-16.0) gm/dL Hct (34.0-46.0) % MCV (80.0-100.0) fL MCHC (31.0-37.0) g/dL RDW (11.5-15.5) % Lymphocytes # (1.0-4.8) k/uL Sodium (137-145) mmol/L Chloride (98-107) mmol/L BUN (7-17) mg/dL Creatinine (0.52-1.04) mg/dL Glucose (74-99) mg/dL POC Glucose (mg/dL) 168 H 156 H (75-99) mg/dL Calcium (8.4-10.2) mg/dL Phosphorus (2.5-4.5) mg/dL Stool Occult Blood (Negative) Crossmatch See Detail 01/19/17 01/19/17 01/19/17 Range/Units 08:50 10:51 14:30 RBC 3.25 L (3.80-5.40) m/uL Hgb 9.8 L D (11.4-16.0) gm/dL Hct 30.4 L (34.0-46.0) % MCV (80.0-100.0) fL MCHC (31.0-37.0) g/dL RDW 19.3 H (11.5-15.5) % Lymphocytes # 0.2 L (1.0-4.8) k/uL Sodium (137-145) mmol/L Chloride (98-107) mmol/L BUN (7-17) mg/dL Creatinine (0.52-1.04) mg/dL Glucose (74-99) mg/dL POC Glucose (mg/dL) 120 H (75-99) mg/dL Calcium (8.4-10.2) mg/dL Phosphorus (2.5-4.5) mg/dL Stool Occult Blood Positive H (Negative) Crossmatch 01/19/17 01/19/17 01/19/17 Range/Units 15:44 17:36 20:59 RBC (3.80-5.40) m/uL Hgb (11.4-16.0) gm/dL Hct (34.0-46.0) % MCV (80.0-100.0) fL MCHC (31.0-37.0) g/dL RDW (11.5-15.5) % Lymphocytes # (1.0-4.8) k/uL Sodium (137-145) mmol/L Chloride (98-107) mmol/L BUN (7-17) mg/dL Creatinine (0.52-1.04) mg/dL Glucose (74-99) mg/dL POC Glucose (mg/dL) 162 H 177 H 170 H (75-99) mg/dL Calcium (8.4-10.2) mg/dL Phosphorus (2.5-4.5) mg/dL Stool Occult Blood (Negative) Crossmatch Microbiology - Last 24 Hours (Table) 01/18/17 16:32 Blood Culture - Preliminary Blood No Growth after 24 hours 01/15/17 16:11 Blood Culture - Preliminary Blood No Growth after 96 hours 01/18/17 14:15 Urine Culture - Final Urine,Catheterized Linda sp,not albicans/galbr Assessment and Plan Assessment: #1 fever with sepsis. Rule out infection. Patient had positive blood cultures at dialysis central. Influenza negative. Chest x-ray showed fluid overload no infiltrates noted. Urine culture was ordered. Patient does not have any cough or sputum production. Blood cultures were sent. Currently patient is afebrile. We'll follow up on culture reports. C. diff toxin negative. #2 altered mental status/metabolic encephalopathy likely due to infection and electrolyte abnormality. Improving #3 mild DKA. Patient was started on insulin drip. AG-16 and a acetone positive. Resolving now #2 recent Dark colored stools due to GI bleed. Hemoglobin 7.9 on admission. Will follow H&H. Patient has been started on Coumadin. #2 paroxysmal atrial fibrillation on anticoagulation with Coumadin #3 ESRD on hemo-dialysis. Left AV graft. Thursday was decided #3 history of coronary artery disease status post stent placement #5. Anemia of chronic disease on epogen. Status post 1 unit PRBC transfusion on 01/19 #6 elevated troponin level. Unlikely acute VA #7 diabetes type 2 uncontrolled with A1c 8.4 #8 hypertension #9 history of GI bleed in November 2015. Status post coloscopy and found to have AVM Plan: Patient had hemodialysis done on today with 2 l ultrafiltration. Chest x-ray showed much improvement. Insulin drip was discontinued and currently on insulin regimen.. We will continue the antibiotics in the form of vancomycin and ceftazidime---> meropenem.. Will follow-up blood cultures and urine cultures. Nephrology is on board. Will monitor H&H. Further recommendations based on the clinical course. Prognosis is guarded with multiple medical problems and comorbid conditions discussed with family in detail at bedside. Time with Patient: Greater than 30
[2017-01-20] MEDS ORDERED: ACETAMINOPHEN IV (For NPO) 1,000 MG in EMPTY BAG 1 BAG IVPB ONE (00:55)
[2017-01-20 04:05] LABS: Anisocytosis Slight; Basophils % (A) 0 %; CH 30.4; CHCM 32.8; Eosinophils # (A) 0.1 k/uL (0-0.7); Eosinophils % (A) 2 %; HCT 27.2 % (34.0-46.0); HDW 4.32; HGB 8.6 gm/dL (11.4-16.0); Hypochromasia Slight; Luc # (Auto) 0.14; Luc % (Auto) 3; Lymphocytes # (A) 0.2 k/uL (1.0-4.8); Lymphocytes % (A) 4 %; MCH 29.7 pg (25.0-35.0); MCHC 31.7 g/dL (31.0-37.0); MCV 93.8 fL (80.0-100.0); Macrocytosis Slight; Mean Platelet Volume 8.5; Monocytes # (A) 0.1 k/uL (0-1.0); Monocytes % (A) 3 %; Neutrophils # (A) 4.3 k/uL (1.3-7.7); Neutrophils % (A) 89 %; Poikilocytosis Moderate; RBC 2.89 m/uL (3.80-5.40); RDW 19.9 % (11.5-15.5); WBC 4.8 k/uL (3.8-10.6); WBC (Perox) 5.05
[2017-01-20 04:13] LABS: Calcium 7.5 mg/dL (8.4-10.2); Magnesium 1.8 mg/dL (1.6-2.3); Phosphorus 5.2 mg/dL (2.5-4.5); Potassium 3.4 mmol/L (3.5-5.1)
[2017-01-20 07:20] LABS: Glucose,Whole Blood 228 mg/dL (75-99)
--- NOTE | 2017-01-20 07:30 | XR ---
EXAMINATION TYPE: XR chest 1V portable DATE OF EXAM: 01/20/2017 COMPARISON: Prior chest x-ray 01/19/2017 HISTORY: Abnormal chest x-ray TECHNIQUE: Single frontal view of the chest is obtained. FINDINGS: Heart is enlarged. Bilateral airspace disease may be slightly improved in the interval. No evident pneumothorax. Difficult to exclude small effusions. Left axillary stent is stable. IMPRESSION: Suspect some improvement in airspace disease.
[2017-01-20] MEDS: METOPROLOL SUCCINATE (ER) 50 MG TAB.ER.24H PO SCH (08:45)
[2017-01-20] MEDS: GABAPENTIN 100 MG CAP PO SCH ×3 (08:45→21:35)
[2017-01-20] MEDS: SEVELAMER 800 MG TAB PO SCH ×3 (08:45→18:20)
[2017-01-20] MEDS: ASPIRIN 81 MG PO SCH (08:45)
[2017-01-20] MEDS: amLODIPine 5 MG TAB PO SCH (08:45)
[2017-01-20] MEDS: FOLIC ACID-VIT B COMPLEX-VIT C 1 CAP PO SCH (08:45)
[2017-01-20] MEDS: POTASSIUM CHLORIDE ORAL LIQUID 40 MEQ/30 ML CUP PO SCH (08:45)
[2017-01-20] MEDS: INSULIN LISPRO (humaLOG) 300 UNIT/3 ML VIAL SQ SCH ×4 (08:45→21:35)
[2017-01-20] MEDS: AMIODARONE 200 MG TAB PO SCH ×2 (08:45→21:35)
[2017-01-20] MEDS: CLOPIDOGREL 75 MG TAB PO SCH (08:45)
--- NOTE | 2017-01-20 10:49 | P.CRDCN ---
History of Present Illness Consult date: 01/20/17 Chief complaint: Change in mental status History of present illness: This is a pleasant 57-year-old epigastric and female patient who follows with Dr. Dr. Calixto in the office on regular basis with known history of coronary artery disease and prior coronary artery angioplasty of the ramus intermedius coronary artery in July 2016, end stage renal disease on hemodialysis , known paroxysmal H or fibrillation on anticoagulation, as well as multiple comorbid conditions including diabetes, hypertension, dyslipidemia was brought by her from home to the hospital with a change in mental status. The patient initially was brought from the dialysis center to the emergency room because of fever. She was sent home at the same day because the workup in the ER was unremarkable. At home the following day the patient was feeling very weak with a change in mental status and her brought her to the emergency room. She did not have any fever or chills at home but she was experiencing cough productive of sputum. No chest pain and no shortness of breath. The patient was diagnosed with sepsis and she was found to have yeast in the urine. She is currently on antibiotic. Beside that she was anemic and the stool was positive for acute blood. The patient was given 2 units of packed RBC and she was receiving Coumadin which is on hold at this point. Also the patient went into an A. fib with RVR and she was started on amiodarone. Currently she is converted and she has been maintaining normal sinus mechanism. Past Medical History Past Medical History: Atrial Fibrillation, Coronary Artery Disease (CAD), Heart Failure, CVA/TIA, Diabetes Mellitus, GERD/Reflux, GI Bleed, Hyperlipidemia, Osteoarthritis (OA), Pneumonia, Renal Disease, Vascular Disorder Additional Past Medical History / Comment(s): Coronary artery disease, preserved LV function with an ejection fraction of 55% and moderate degree of MR , IDDM type II, End stage renal failure with hemodialysis MWF-on kidney transplant list thru [facility], CVA 2007 with some peripheral vision problems R eye and R ear [place], lower GI bleed, PAD, DJD, diverticulosis, pancreatitis, bronchitis, TMJ, sinus problems at times, UTIs, benign polypectomies, anemia. History of Any Multi-Drug Resistant Organisms: None Reported Past Surgical History: Cholecystectomy, Heart Catheterization, Heart Catheterization With Stent, Hysterectomy Additional Past Surgical History / Comment(s): L upper arm for dialysis cath, 3 Cardiac stents, one stent rt leg, EGD/colonoscopies/benign polypectomies , bilateral cataract removal, laser sx bilateral eyes for retinopathy, D&C, left axillary I&D Past Anesthesia/Blood Transfusion Reactions: Motion Sickness, Postoperative Nausea & Vomiting (PONV) Additional Past Anesthesia/Blood Transfusion Reaction / Comment(s): Pt has received blood in the past without reaction. Date of Last Stent Placement:: 09/22/13 Past Psychological History: No Psychological Hx Reported Additional Psychological History / Comment(s): Pt resides with her spouse. She is normally independent.lives in a single level home that has 3 front steps. no pets. no home care services. has a glucometer, bp monitor. She does not work outside of the home. She does not have experience. Denies international travel. Denies recreational drug use. Denies alcohol utilization or tobacco use Smoking Status: Never smoker Past Alcohol Use History: Occasional Additional Past Alcohol Use History / Comment(s): Pt smoked from 1983 to 2012. 2 PPD Past Drug Use History: None Reported - Past Family History Mother Family Medical History: No Reported History Additional Family Medical History / Comment(s): Mother is 76 yrs old. Father Family Medical History: Diabetes Mellitus Additional Family Medical History / Comment(s): Father at the age of 42yrs- pt does not know reason. Medications and Allergies Home Medications Medication Instructions Recorded Confirmed Type Furosemide [Lasix] 80 mg PO BID 09/17/13 01/15/17 History Albuterol Inhaler [Ventolin Hfa 1 puff INHALATION RT-BID PRN 02/12/16 01/15/17 History Inhaler] Clopidogrel [Plavix] 75 mg PO DAILY tab 02/16/16 01/15/17 Rx Atorvastatin [Lipitor] 40 mg PO HS 07/16/16 01/15/17 History Insulin Aspart [NovoLOG Flexpen] See Protocol SQ AC-TID 07/16/16 01/15/17 History ALPRAZolam [Xanax] 0.25 mg PO HS PRN 07/29/16 01/15/17 History Aspirin EC [Ecotrin Low Dose] 81 mg PO DAILY 10/30/16 01/15/17 History Folic Acid-Vit B Complex-Vit C 1 cap PO DAILY 10/30/16 01/15/17 History [Nephrocaps] Nitroglycerin Sl Tabs [Nitrostat] 0.4 mg SUBLINGUAL Q5M PRN 10/30/16 01/15/17 History Sevelamer [Renvela] 2,400 mg PO AC-TID 10/30/16 01/15/17 History amLODIPine [Norvasc] 5 mg PO DAILY 10/30/16 01/15/17 History Temazepam [Restoril] 15 mg PO HS PRN #15 cap 11/01/16 01/15/17 Rx Metoprolol Succinate (ER) [Toprol 50 mg PO DAILY 11/26/16 01/15/17 History XL] Darbepoetin Doroteo [Aranesp] 40 mcg SQ Q7D syr 12/01/16 01/15/17 Rx Insulin Glargine,Hum.rec.anlog 38 unit SQ HS 01/01/17 01/15/17 History [Lantus Solostar] Warfarin [Coumadin] 5 mg PO HS@1800 01/01/17 01/15/17 History Gabapentin [Neurontin] 100 mg PO TID 01/02/17 01/15/17 History Midodrine [ProAmatine] 5 mg PO MoWeFr@0900 tab 01/05/17 01/15/17 Rx Spironolactone [Aldactone] 25 mg PO DAILY #30 tab 01/05/17 01/15/17 Rx Allergies Allergy/AdvReac Type Severity Reaction Status Date / Time clonidine Allergy Anaphylaxis Verified 01/15/17 16:14 Iodinated Contrast- Oral and Allergy Anaphylaxis Verified 01/15/17 16:14 IV Dye iodine Allergy Anaphylaxis Verified 01/15/17 16:14 Penicillins Allergy Rash/Hives Verified 01/15/17 16:14 shellfish derived Allergy Anaphylaxis Verified 01/15/17 16:14 Physical Exam Vitals: Vital Signs Temp Pulse Resp BP Pulse Ox 01/20/17 10:00 90 26 H 109/53 95 01/20/17 09:00 88 28 H 124/43 98 01/20/17 08:00 99 F 76 17 109/42 98 01/20/17 07:00 73 18 123/43 100 01/20/17 06:00 70 17 96/42 99 01/20/17 05:00 72 17 97/36 99 01/20/17 04:00 99.8 F H 76 19 105/46 100 01/20/17 03:00 101.7 F H 76 19 100/46 98 01/20/17 02:00 82 22 158/50 97 01/20/17 01:00 83 21 150/46 100 01/20/17 00:00 101.0 F H 77 20 140/53 100 01/19/17 23:35 78 20 140/53 100 01/19/17 23:00 76 19 128/77 100 01/19/17 22:00 78 18 117/42 100 01/19/17 21:00 72 17 114/41 100 01/19/17 20:00 99.7 F H 70 19 113/47 100 01/19/17 19:49 74 01/19/17 19:33 69 01/19/17 19:00 70 24 113/47 100 01/19/17 18:00 67 17 116/43 99 01/19/17 17:00 99.9 F H 71 20 113/44 100 01/19/17 16:30 74 37 H 100/39 98 01/19/17 16:00 101.0 F H 69 20 108/41 99 01/19/17 15:30 73 19 153/52 100 01/19/17 15:25 20 01/19/17 15:00 101.4 F H 78 20 153/52 100 01/19/17 14:30 85 29 H 100 01/19/17 14:00 80 21 128/47 100 01/19/17 13:30 81 23 137/49 97 01/19/17 13:00 99.0 F 85 27 H 138/58 97 01/19/17 12:39 99.0 F 84 18 138/58 98 01/19/17 12:30 82 24 141/71 95 01/19/17 12:29 98.6 F 84 18 141/75 95 01/19/17 12:26 99.2 F 82 20 141/71 96 01/19/17 12:20 98.1 F 97 16 136/43 99 01/19/17 12:00 98.6 F 80 24 136/59 100 01/19/17 11:50 98.7 F 79 18 132/81 95 01/19/17 11:40 99.0 F 76 16 115/64 95 01/19/17 11:21 21 01/19/17 11:00 98.6 F 75 21 104/43 100 Intake and Output 01/19/17 01/20/17 01/20/17 22:59 06:59 14:59 Intake Total 80 280 280 Output Total 0 0 0 Balance 80 280 280 Intake: IV 80 80 40 0.9 KVO 80 80 40 Oral 200 240 Output: Urine 0 0 0 Other: Voiding Method Diaper # Voids 0 # Bowel Movements 1 1 Weight 69.2 kg - Constitutional General appearance: no acute distress - Respiratory Respiratory: bilateral: CTA - Cardiovascular Rhythm: regular Heart sounds: normal: S1, S2 Abnormal Heart Sounds: systolic murmur Results 01/20/17 03:55 01/20/17 03:55 CBC 01/19/17 01/20/17 Range/Units 14:30 03:55 WBC 7.6 4.8 (3.8-10.6) k/uL RBC 3.25 L 2.89 L (3.80-5.40) m/uL Hgb 9.8 L D 8.6 L (11.4-16.0) gm/dL Hct 30.4 L 27.2 L (34.0-46.0) % Plt Count 167 146 L (150-450) k/uL Comprehensive Metabolic Panel 01/20/17 Range/Units 03:55 Sodium 129 L (137-145) mmol/L Potassium 3.4 L (3.5-5.1) mmol/L Chloride 96 L (98-107) mmol/L Carbon Dioxide 24 (22-30) mmol/L BUN 30 H (7-17) mg/dL Creatinine 5.30 H* (0.52-1.04) mg/dL Glucose 235 H (74-99) mg/dL Calcium 7.5 L (8.4-10.2) mg/dL Current Medications Generic Name Dose Route Start Last Admin Trade Name Freq PRN Reason Stop Dose Admin Albuterol Sulfate 2.5 mg 01/17/17 04:47 01/19/17 19:31 Ventolin Nebulized INHALATION 2.5 mg RT-BID PRN Administration Shortness Of Breath Alprazolam 0.25 mg 01/17/17 04:47 Xanax PO HS PRN Insomnia Amiodarone HCl 400 mg 01/19/17 21:00 01/20/17 08:45 Cordarone PO 400 mg BID [facility] Administration Amlodipine Besylate 5 mg 01/17/17 09:00 01/20/17 08:45 Norvasc PO 5 mg DAILY [facility] Administration Aspirin 81 mg 01/17/17 09:00 01/20/17 08:45 Aspirin PO 81 mg DAILY [facility] Administration Atorvastatin Calcium 40 mg 01/17/17 21:00 01/19/17 21:36 Lipitor PO 40 mg HS [facility] Administration Clopidogrel Bisulfate 75 mg 01/17/17 09:00 01/20/17 08:45 Plavix PO 75 mg DAILY [facility] Administration Darbepoetin Doroteo 60 mcg 01/18/17 11:00 01/18/17 12:26 Aranesp SQ 60 mcg Q7D [facility] Administration Gabapentin 100 mg 01/17/17 09:00 01/20/17 08:45 Neurontin PO 100 mg TID [facility] Administration Diltiazem HCl 125 mg/ Sodium 125 mls @ 0 mls/hr 01/18/17 14:22 Chloride IV .Q0M [facility] Protocol Titrate Norepinephrine Bitartrate 16 mg in 250 mls @ 0 mls/hr 01/18/17 14:20 Levophed-0.9% Nacl 16 Mg/250ml Pmx IV .Q0M [facility] Protocol Titrate Meropenem 1 gm/ Sodium 100 mls @ 200 mls/hr 01/19/17 18:00 01/19/17 17:47 Chloride IVPB 200 mls/hr Q24H [facility] Administration Insulin Human Lispro 0 unit 01/19/17 17:45 01/20/17 08:45 Humalog SQ 3 unit ACHS [facility] Administration Protocol Metoprolol Succinate 50 mg 01/18/17 09:00 01/20/17 08:45 Toprol Xl PO 50 mg DAILY [facility] Administration Midodrine 5 mg 01/19/17 09:00 01/19/17 14:05 Proamatine PO 5 mg MoWeFr@0900 [facility] Administration Miscellaneous Information 1 each 01/15/17 16:56 Pharmacy To Dose Iv Vancomycin MISCELLANE DIRECTED PRN Per Protocol Multivit/Ca Carb/B Cmplx/FA/Prenat 1 each 01/17/17 09:00 01/20/17 08:45 Nephrocaps PO 1 each DAILY [facility] Administration Potassium Chloride 20 meq 01/20/17 09:00 01/20/17 08:45 Potassium Chloride Oral Liquid PO 20 meq DAILY [facility] Administration Sevelamer Carbonate 800 mg 01/18/17 12:30 01/20/17 08:45 Renvela PO 800 mg TID-W/MEALS [facility] Administration Temazepam 15 mg 01/17/17 04:47 Restoril PO HS PRN Insomnia Intake and Output 01/19/17 01/20/17 01/20/17 22:59 06:59 14:59 Intake Total 80 280 280 Output Total 0 0 0 Balance 80 280 280 Intake: IV 80 80 40 0.9 KVO 80 80 40 Oral 200 240 Output: Urine 0 0 0 Other: Voiding Method Diaper # Voids 0 # Bowel Movements 1 1 Weight 69.2 kg 01/20/17 03:55 01/20/17 03:55 Assessment and Plan Assessment: This is a pleasant 57-year-old -[place] female patient with CAD, into stage renal disease on hemodialysis, paroxysmal A. fib, as well as multiple comorbid conditions was admitted to the hospital with a change in mental status and was found to be septic. She went into an A. fib with RVR and converted to normal sinus mechanism. From a perivascular standpoint of view, she seems to be stable at this point. She is on metoprolol as well as amiodarone. Coumadin is on hold at this point in view of the possible GI bleed. I am going to continue the current medical treatment and continue following up with her. No need for any further cardiac workup at this point of time. Thank you for allowing us participate in her care
--- NOTE | 2017-01-20 11:00 | P.PN ---
Subjective Progress Note Date: 01/20/17 Principal diagnosis: Acute sepsis A 57-year-old female patient who presented to the hospital because of altered mental status. The patient apparently was getting more lethargic and sleepy and somewhat confused. The patient was also having fever on an outpatient basis. Blood Cultures have been sent and the dialysis site and apparently the blood cultures were told to be positive and for that reason the patient was sent into the hospital. The patient was given a dose of vancomycin and the patient's random vancomycin level is at 32. The patient has some limited diarrhea which has subsided. No nausea. No vomiting. No abdominal pain. No chest pain. She has an AV Ciaran the left upper extremity for dialysis. No cellulitis. No headaches. No neck stiffness. At the time of my evaluation, the patient was afebrile and her mentation was already improving. She opened her eyes patient moved all 4 extremities. She was able to recognize me as of taking care of this patient the past 4 issues related to her incisional disease and fluid overload. This is a very pleasant -[place] female patient with known history of end-stage renal disease on hemodialysis 3 times a week, Wednesdays and Fridays via a left upper extremity AV graft. The patient has been compliant to her treatment. The patient is known to have coronary artery disease. The patient has undergone previous angioplasty of the ramus intermedius artery artery in July 2016. He has been hospitalized in the past to the intensive care unit for hypertensive emergency and fluid overload. She was treated appropriately without any complications. She has a preserved LV function with an ejection fraction of 55%. She also has a moderate degree of mitral regurgitation. Cardiac catheterization was done during her latest admission and she has smaller vessel coronary artery disease. Not abnormal for any intervention. Note that she had a similar presentation in 08/01/2016 when she came in with pulmonary edema and fluid overload and hypertensive urgency with systolic blood pressure running in the 180-190 range. At that time the patient was placed on nitroglycerin drip which improved her blood pressure control. Subsequently she had [id number] dialysis with ultrafiltration and the pulmonary edema recovered. She has a preserved LV function based on previous echocardiograms. Please refer also to the most recent cardiac catheterization was done in July 2016. On 01/18/2017 the patient is being seen in follow-up. As mentioned, the patient got transferred to the intensive care unit. She was having fever. She was in mild DKA. She was having altered mentation and fever. She got dialyzed yesterday and dialysis was successful and the patient she had 2 L of fluid taken off. This morning she is awake and alert and she is following commands and answering questions appropriately. She is having fever and her T-max was 11.7. She was seen by infectious disease yesterday. Rocephin was discontinued and the patient was given a dose of Fortaz. Vancomycin random level today is at 22. The patient is still having negative blood cultures. No nausea no vomiting no abdominal pain. She was a straight cathed yesterday and would awaiting for the urine analysis and urine culture results also. No headache. No seizure activity. She is on an insulin drip at 0.5 units an hour and her blood sugars under better control for now. The chest x-ray from today is showing marked improvement in the pulmonary edema and there is no consolidation or airspace disease. On 01/19/2017, patient seems to be doing a bit better, she is presently receiving hemodialysis, remains on antibiotics as per Dr. Mares, patient is now on Merrem and vancomycin. Her hemoglobin is 6.1, and the patient will likely receive a unit of packed RBCs after dialysis today. Blood cultures and urine cultures remain pending at this point. On 01/20/2017, patient seems to be doing much better, breathing easier, chest x- ray is showing improvement in fluid overload, received hemodialysis yesterday and 2 units of packed RBCs for hemoglobin of 6.1, today's hemoglobin is 8.6. Patient was also seen by cardiology for her paroxysmal atrial fibrillation, and recommended no further workup, patient remains on amiodarone and beta blockers. Today the patient is in normal sinus rhythm. Coumadin remains on hold because of her potential GI bleeding and low hemoglobin requiring 2 units of packed RBCs given yesterday. Labs were reviewed today, BUN is 30 creatinine is 5.30 sodium is 129 potassium is 3.4. I believe the patient is at this point relatively stable enough to be transferred out of the ICU. Objective - Vital Signs Vital signs: Vital Signs Temp 99 F 01/20/17 08:00 Pulse 90 01/20/17 10:00 Resp 26 H 01/20/17 10:00 BP 109/53 01/20/17 10:00 Pulse Ox 95 01/20/17 10:00 Intake & Output 01/19/17 01/20/17 01/20/17 18:59 06:59 18:59 Intake Total 1360 320 280 Output Total 0 0 0 Balance 1360 320 280 Weight 69.2 kg Intake: IV 120 120 40 0.9 KVO 120 120 40 Oral 200 240 Blood Product 1240 Rc As-3 Unit 310 [id number] Rc As-3 Unit 310 [id number] Output: Urine 0 0 0 Other: Voiding Method Diaper # Voids 0 # Bowel Movements 1 1 - Exam Physical Exam: Revealed a 57-year-old female in no distress. HEENT:[Neck is supple.] [No neck masses.] [No thyromegaly.] [No JVD.] Chest: [Diminished breath sounds at the bases, no crackles, no rhonchi, no wheezes.] Cardiac Exam: [Normal S1 and S2, no S3 gallop, no murmur.] Abdomen: [Soft, nontender, no megaly, no rebound, no guarding, normal bowel sounds.] Extremities: [No clubbing, no edema, no cyanosis.] Neurological Exam: [No focal neurologic deficit.] Psychiatric: Normal mood and affect, normal mental status examination. Musculoskeletal: Normal range of motion, no muscle tenderness, no weakness. Lymphatics: No lymphadenopathy. - Labs CBC & Chem 7: 01/20/17 03:55 01/20/17 03:55 Labs: Abnormal Lab Results - Last 24 Hours (Table) 01/19/17 01/19/17 01/19/17 Range/Units 08:50 14:30 15:44 RBC 3.25 L (3.80-5.40) m/uL Hgb 9.8 L D (11.4-16.0) gm/dL Hct 30.4 L (34.0-46.0) % RDW 19.3 H (11.5-15.5) % Plt Count (150-450) k/uL Lymphocytes # 0.2 L (1.0-4.8) k/uL Sodium (137-145) mmol/L Potassium (3.5-5.1) mmol/L Chloride (98-107) mmol/L BUN (7-17) mg/dL Creatinine (0.52-1.04) mg/dL Glucose (74-99) mg/dL POC Glucose (mg/dL) 162 H (75-99) mg/dL Calcium (8.4-10.2) mg/dL Phosphorus (2.5-4.5) mg/dL Crossmatch See Detail 01/19/17 01/19/17 01/20/17 Range/Units 17:36 20:59 03:55 RBC (3.80-5.40) m/uL Hgb (11.4-16.0) gm/dL Hct (34.0-46.0) % RDW (11.5-15.5) % Plt Count (150-450) k/uL Lymphocytes # (1.0-4.8) k/uL Sodium 129 L (137-145) mmol/L Potassium 3.4 L (3.5-5.1) mmol/L Chloride 96 L (98-107) mmol/L BUN 30 H (7-17) mg/dL Creatinine 5.30 H* (0.52-1.04) mg/dL Glucose 235 H (74-99) mg/dL POC Glucose (mg/dL) 177 H 170 H (75-99) mg/dL Calcium 7.5 L (8.4-10.2) mg/dL Phosphorus 5.2 H (2.5-4.5) mg/dL Crossmatch 01/20/17 01/20/17 Range/Units 03:55 07:18 RBC 2.89 L (3.80-5.40) m/uL Hgb 8.6 L (11.4-16.0) gm/dL Hct 27.2 L (34.0-46.0) % RDW 19.9 H (11.5-15.5) % Plt Count 146 L (150-450) k/uL Lymphocytes # 0.2 L (1.0-4.8) k/uL Sodium (137-145) mmol/L Potassium (3.5-5.1) mmol/L Chloride (98-107) mmol/L BUN (7-17) mg/dL Creatinine (0.52-1.04) mg/dL Glucose (74-99) mg/dL POC Glucose (mg/dL) 228 H (75-99) mg/dL Calcium (8.4-10.2) mg/dL Phosphorus (2.5-4.5) mg/dL Crossmatch Microbiology - Last 24 Hours (Table) 01/18/17 22:00 Blood Culture - Preliminary Blood No Growth after 24 hours 01/18/17 16:32 Blood Culture - Preliminary Blood No Growth after 24 hours 01/15/17 16:11 Blood Culture - Preliminary Blood No Growth after 96 hours 01/18/17 14:15 Urine Culture - Final Urine,Catheterized Linda sp,not albicans/galbr Assessment and Plan Plan: 1 altered mentation along with fever. Improving, felt to be related to underlying sepsis. Blood cultures and other cultures remain negative. This is being addressed by Dr. Mares on the case. Remains on antibiotics as already noted. 2 acute febrile illness on that investigation must see discussion above 3 coronary artery disease status post angioplasty of the ramus intermedius branch 4 End stage renal disease on hemodialysis, 5 diabetes mellitus with poorly controlled blood sugars currently on insulin drip for blood sugar control the patient had some ketones and mild anion gap metabolic acidosis with an anion gap of 23 6 hypertensive with a poorly controlled blood pressure 7 hyperlipidemia 8 CVA/TIA 9 previous history of GI bleeding 10. peripheral Vascular disease 11 diverticulosis 12 osteoarthritis 13 CHF with a component of fluid overload/pulmonary edema with elevated BNP level. The patient is not having any major respiratory distress and the patient will be having dialysis today. BNP level has been chronically elevated. On today's chest x-ray there is marked improvement in volume status and the pulmonary edema that was discussed earlier as the patient had a 2 L of ultrafiltration. 14 paroxysmal atrial fibrillation, presently under control. Recommendation: Continue present treatment plan, transfer patient out of the ICU to a regular medical floor today. Time with Patient: Less than 30
[2017-01-20] MEDS: ALBUTEROL NEBULIZED 2.5 MG/3 ML INHALATION PRN ×2 (11:23→19:59)
[2017-01-20 12:39] LABS: Glucose,Whole Blood 326 mg/dL (75-99)
[2017-01-20] MEDS: ACETAMINOPHEN TAB 325 MG TAB PO PRN ×2 (12:46→18:18)
--- NOTE | 2017-01-20 16:47 | CDI ---
In responding to this query, please exercise your independent professional judgment. The [facility] Coding Staff and Clinical Documentation Specialists appreciate your assistance in clarifying documentation, maintaining compliance with coding guidelines, accurately documenting patients condition and capturing severity of illness. The fact that a question is asked does not imply that any particular answer is desired or expected. Communication forms are a method of clarifying documentation and are not made part of the Legal Health Record. Thank you in advance for your clarification. Last Revision, May 2016 Stephanie Hull [address] [place] [address] Documentation Clarification Form Date: 01/20/2017 4:34:00 PM From: Velma Moon RN, CCDS Admit Date: 01/15/2017 4:56:00 PM Patient Name: Reina Kaufman Visit Number: [id number] Dr. Srinivas Black CHF is documented in the Nephrology progress notes and requires further clarification. History/Risk Factors: Atrial Fib, CAD, heart failure, CVA, dm, gerd, GIB, ESRD Clinical Indicators: 01/19 Nephrology progress note: " Fluid overload/congestive heart failure, currently improved." VS/Pulse OX: Temp 101.2, HR 84, RR 18, B/P 152/65, Spo2 90% RA BNP: 82,600 Echocardiogram Results: no echo results available from this facility 01/15 Chest X Ray:"Correlate for volume overload, pulmonary venous hypertension and interstitial edema." Treatment: Hemodialysis Lasix 40 mg IVP x1, followed by 80 mg PO BID d/c'd 01/18 @ 2047 Consults: Pulmonary, Nephrology, ID In your professional opinion, can you please clarify the acuity and type of CHF if known? Systolic Heart Failure: Acute Chronic Acute on Chronic Diastolic Heart Failure: Acute Chronic Acute on Chronic Systolic & Diastolic Heart Failure: Acute Chronic Acute on Chronic Unable to determine Other, please specify Please document in your progress notes and discharge summary in order to capture severity of illness and risk of mortality. Include clinical findings that support your diagnosis. FYI: Press F11 to launch patient chart. ALFRED
--- NOTE | 2017-01-20 17:16 | CDI ---
In responding to this query, please exercise your independent professional judgment. The [facility] Coding Staff and Clinical Documentation Specialists appreciate your assistance in clarifying documentation, maintaining compliance with coding guidelines, accurately documenting patients condition and capturing severity of illness. The fact that a question is asked does not imply that any particular answer is desired or expected. Communication forms are a method of clarifying documentation and are not made part of the Legal Health Record. Thank you in advance for your clarification. Last Revision, May 2015 Stephanie Hull [address] [place] [address] Documentation Clarification Form Date: 01/20/2017 4:47:00 PM From: Velma Moon RN,CCDS Admit Date: 01/15/2017 4:56:00 PM Patient Name: Reina Kaufman Visit Number: [id number] Dr. Srinivas Black Documentation and location in medical record included: multiple low oxygen saturations. History/Risk Factors: Atrial Fib, CAD, HF, CVA, DM, GERD, GIB, Hyperlipidemia, OA, Pneumonia, ESRD, VD Clinical Indicators: 01/17 1645 Vital signs/Pulse oximetry: rr 29-31 01/18 0830 Spo2 74% on 4L NC, 1030 RR 26, Spo2 84% on 4l NC, 1250 Spo2 51% on 4L NC 01/20 Lung/Breathing assessment: "Chest: [Diminished breath sounds at the bases, no crackles, no rhonchi, no wheezes.] Treatment: Continuous Pulse ox: per unit protocol O2: 2 l NC increasing to 50% VM, decreased to 4L NC In your professional opinion, can you please clarify if these findings signify one of the following conditions? Acuity: o Acute o Chronic o Acute on Chronic Respiratory Status: o Respiratory failure o Respiratory failure with hypercapnia o Respiratory failure with hypoxia o Acute Respiratory Distress o Other Diagnosis, please specify o Unable to determine Please document in your progress notes and discharge summary in order to capture severity of illness and risk of mortality. Include clinical findings that support your diagnosis. FYI: Press F11 to launch patient chart. ALFRED
[2017-01-20 17:21] LABS: Glucose,Whole Blood 344 mg/dL (75-99)
[2017-01-20] MEDS ORDERED: GELATIN SPONGE,ABSORB (SMALL) 1 EACH SPONGE ONE (17:45)
[2017-01-20] MEDS: MEROPENEM 1 GM in SODIUM CHLORIDE 0.9% 100 ML IVPB SCH (18:20)
--- NOTE | 2017-01-20 20:28 | PN ---
PROGRESS NOTE The patient is seen for followup for end-stage renal disease. This morning she remains tired, fatigued. She is arousable and is still confused at times. She is also continuing to have fever. Early this morning, she had a temp of 101.6. EXAMINATION: Blood pressure was 119/41, heart rate 86 per minute. Patient is afebrile. HEART: S1, S2. LUNGS: Bilateral basal crackles are heard. ABDOMEN: Soft, nontender, distended. Lower extremities show no significant edema. LABS: Show sodium 129, potassium 3.4, BUN 30, serum creatinine 5.3. Hemoglobin 8.6 g/dL. Phosphorus was 7.5. ASSESSMENT: 1. End-stage renal disease, on hemodialysis on a Thursday, Thursday, Thursday schedule. Patient will be dialyzed again today mainly for ultrafiltration. 2. Fever, etiology unclear, being followed by Infectious Disease. 3. Fluid overload. Repeat dialysis today and tomorrow. 4. Diabetic ketoacidosis. The patient had been on insulin drip which is now discontinued. 5. Severe anemia with positive stool for occult blood, status post packed red blood cells transfusion, maintained on Aranesp. 6. Paroxysmal atrial fibrillation. The patient's anticoagulation was held. She however remains on Plavix. PLAN: Ultrafiltration today and will repeat hemodialysis tomorrow in a.m. MMODL / IJN: [id number] /
[2017-01-20] MEDS: ATORVASTATIN 40 MG TAB PO SCH (21:35)
[2017-01-20 21:37] LABS: Glucose,Whole Blood 313 mg/dL (75-99)
--- NOTE | 2017-01-20 22:22 | P.PN ---
Subjective Progress Note Date: 01/20/17 Principal diagnosis: Sepsis 57-year-old Afro-[place] female presents to the emergency center because there was difficulties with her mental status. The family relate that she developed confusion and was quite lethargic. She has a long-standing history of end- stage renal disease on hemodialysis through the local dialysis center in our community. When she was at her last dialysis center they were concerned that she had evidence of sepsis and was given a dose of vancomycin. Other notation of developing some diarrhea she was feeling relatively well until the onset of the significant altered mentation as well as a high-grade fever. Consult her family brought her to the emergency center where she was admitted at the present time with a temperature of 100 medical floor but had worsening of her status developed evidence of diabetic ketoacidosis was transferred to the intensive care unit. Because of ongoing sepsis infectious diseases consultation was requested. The patient currently has been seen by the dialysis nurse dialysis has started. And quite surprising with the start of dialysis she's not feeling considerably better. She was awake alert oriented to person and place. She remembers the dialysis nurses name without difficulty. She was able to relate the current history. Nursing staff relates that a few hours ago she was unable to give any history at all. At this time she just feels poorly with a high-grade fever. She has some generalized body ache. Her appetite is been poor. She has some nausea without emesis. She's had a a headache and it's not severe at this point in time. She 's had no rigor. If the time of evaluation today she is upright relates that she'd like to have some fruit. She is able to relate that sheis at [facility]. She is in [facility]. It is 2016. She also knows to her family members are. She did well with dialysis and looks forward to her meal. Objective - Vital Signs Vital signs: Vital Signs Temp 98.9 F 01/20/17 20:00 Pulse 91 01/20/17 21:00 Resp 23 01/20/17 21:00 BP 106/49 01/20/17 21:00 Pulse Ox 100 01/20/17 18:00 Intake & Output 01/20/17 01/20/17 01/21/17 06:59 18:59 06:59 Intake Total 320 700 30 Output Total 0 2300 0 Balance 320 -1600 30 Weight 69.2 kg 69.2 kg Intake: IV 120 120 30 0.9 KVO 120 120 30 Intake, IV Titration 100 Amount Meropenem 1 gm In Sodium 100 Chloride 0.9% 100 ml @ 200 mls/hr IVPB Q24H [facility] Rx#:[id number] Oral 200 480 Output: Urine 0 0 0 Other 2300 Other: # Voids 0 0 # Bowel Movements 1 1 - Exam Pleasant 57-year-old woman who is quite comfortable at this time. She's feeling better now that her fevers resolved. The dutch odor of her ketosis has resolved. HEENT: Anicteric conjunctiva are pink and moist nasal mucosa grossly intact without significant lesions, there is no thrush. Evidence of bilateral cataract extraction and lens implantation Neck: The neck is supple without significant lymphadenopathy or thyromegaly. Lungs: They're symmetrical air entry, there is evidence of only few basilar crackles. No bronchial sounds are heard. No dullness or egophony. Heart: Regular rate and rhythm with an audible S1-S2, no S3 soft S4 and the hum of the fistula is easily heard. There is no significant murmur click or rub, PMI was nondisplaced. Abdomen: Positive bowel sounds soft and nontender without palpable masses or organomegaly. There was no guarding or rebound. Extremities: The upper extremities have excellent pulses they are symmetric, no significant petechiae or telangiectasia. No splinter hemorrhages were noted. The lower extremities are free from significant edema. The peripheral pulses were 2+ and symmetric. Neuro: Patient is now much more awake and alert. Shorted to person and place and year. Appears to be have somewhat of a waxing status in that she does very well around the time of dialysis. There was still then some fever. The patient is much improved today. - Labs CBC & Chem 7: 01/20/17 03:55 01/20/17 03:55 Labs: Abnormal Lab Results - Last 24 Hours (Table) 01/20/17 01/20/17 01/20/17 Range/Units 03:55 03:55 07:18 RBC 2.89 L (3.80-5.40) m/uL Hgb 8.6 L (11.4-16.0) gm/dL Hct 27.2 L (34.0-46.0) % RDW 19.9 H (11.5-15.5) % Plt Count 146 L (150-450) k/uL Lymphocytes # 0.2 L (1.0-4.8) k/uL Sodium 129 L (137-145) mmol/L Potassium 3.4 L (3.5-5.1) mmol/L Chloride 96 L (98-107) mmol/L BUN 30 H (7-17) mg/dL Creatinine 5.30 H* (0.52-1.04) mg/dL Glucose 235 H (74-99) mg/dL POC Glucose (mg/dL) 228 H (75-99) mg/dL Calcium 7.5 L (8.4-10.2) mg/dL Phosphorus 5.2 H (2.5-4.5) mg/dL 01/20/17 01/20/17 01/20/17 Range/Units 12:37 17:19 21:29 RBC (3.80-5.40) m/uL Hgb (11.4-16.0) gm/dL Hct (34.0-46.0) % RDW (11.5-15.5) % Plt Count (150-450) k/uL Lymphocytes # (1.0-4.8) k/uL Sodium (137-145) mmol/L Potassium (3.5-5.1) mmol/L Chloride (98-107) mmol/L BUN (7-17) mg/dL Creatinine (0.52-1.04) mg/dL Glucose (74-99) mg/dL POC Glucose (mg/dL) 326 H 344 H 313 H (75-99) mg/dL Calcium (8.4-10.2) mg/dL Phosphorus (2.5-4.5) mg/dL Microbiology - Last 24 Hours (Table) 01/18/17 16:32 Blood Culture - Preliminary Blood No Growth after 48 hours 01/15/17 16:11 Blood Culture - Preliminary Blood No Growth after 120 hours 01/18/17 22:00 Blood Culture - Preliminary Blood No Growth after 24 hours Laboratory Results WBC 4.8 k/uL (3.8-10.6) 01/20/17 03:55 RBC 2.89 m/uL (3.80-5.40) L 01/20/17 03:55 Hgb 8.6 gm/dL (11.4-16.0) L 01/20/17 03:55 Hct 27.2 % (34.0-46.0) L 01/20/17 03:55 MCV 93.8 fL (80.0-100.0) 01/20/17 03:55 MCH 29.7 pg (25.0-35.0) 01/20/17 03:55 MCHC 31.7 g/dL (31.0-37.0) 01/20/17 03:55 RDW 19.9 % (11.5-15.5) H 01/20/17 03:55 Plt Count 146 k/uL (150-450) L 01/20/17 03:55 Neutrophils % 89 % 01/20/17 03:55 Neutrophils % (Manual) 60 % 01/18/17 05:32 Band Neutrophils % 30 % 01/18/17 05:32 Lymphocytes % 4 % 01/20/17 03:55 Lymphocytes % (Manual) 7 % 01/18/17 05:32 Monocytes % 3 % 01/20/17 03:55 Monocytes % (Manual) 4 % 01/18/17 05:32 Eosinophils % 2 % 01/20/17 03:55 Eosinophils % (Manual) 1 % 01/18/17 05:32 Basophils % 0 % 01/20/17 03:55 Neutrophils # 4.3 k/uL (1.3-7.7) 01/20/17 03:55 Neutrophils # (Manual) 3.80 k/uL (1.3-7.7) 01/18/17 05:32 Lymphocytes # 0.2 k/uL (1.0-4.8) L 01/20/17 03:55 Lymphocytes # (Manual) 0.30 k/uL (1.0-4.8) L 01/18/17 05:32 Monocytes # 0.1 k/uL (0-1.0) 01/20/17 03:55 Monocytes # (Manual) 0.17 k/uL (0-1.0) 01/18/17 05:32 Eosinophils # 0.1 k/uL (0-0.7) 01/20/17 03:55 Eosinophils # (Manual) 0.04 k/uL (0-0.7) 01/18/17 05:32 Basophils # 0.0 k/uL (0-0.2) 01/20/17 03:55 Nucleated RBCs 0 /100 WBC (0-0) 01/18/17 05:32 Polychromasia Present 01/18/17 05:32 Hypochromasia Slight 01/20/17 03:55 Poikilocytosis Moderate 01/20/17 03:55 Poikilocytosis (manual Present 01/18/17 05:32 Anisocytosis Slight 01/20/17 03:55 Macrocytosis Slight 01/20/17 03:55 PT 10.7 sec (9.0-12.0) 01/19/17 04:35 INR 1.1 (<1.2) 01/19/17 04:35 APTT 23.0 sec (22.0-30.0) 01/15/17 16:11 Sample Site r rad 01/16/17 16:17 ABG pH 7.49 (7.35-7.45) H 01/16/17 16:17 ABG pCO2 29 mmHg (35-45) L 01/16/17 16:17 ABG pO2 79 mmHg (83-108) L 01/16/17 16:17 ABG HCO3 22 mmol/L (21-25) 01/16/17 16:17 ABG Total CO2 23 mmol/L (19-24) 01/16/17 16:17 ABG O2 Saturation 96.8 % (94-97) 01/16/17 16:17 ABG Base Excess -0.7 mmol/L 01/16/17 16:17 FiO2 45 % 01/16/17 16:17 Sodium 129 mmol/L (137-145) L 01/20/17 03:55 Potassium 3.4 mmol/L (3.5-5.1) L 01/20/17 03:55 Chloride 96 mmol/L (98-107) L 01/20/17 03:55 Carbon Dioxide 24 mmol/L (22-30) 01/20/17 03:55 Anion Gap 9 mmol/L 01/20/17 03:55 BUN 30 mg/dL (7-17) H 01/20/17 03:55 Creatinine 5.30 mg/dL (0.52-1.04) H* 01/20/17 03:55 Est GFR (MDRD) Af Amer 10 (>60 ml/min/1.73 sqM) 01/20/17 03:55 Est GFR (MDRD) Non-Af 8 (>60 ml/min/1.73 sqM) 01/20/17 03:55 Glucose 235 mg/dL (74-99) H 01/20/17 03:55 POC Glucose (mg/dL) 313 mg/dL (75-99) H 01/20/17 21:29 POC Glu [employer] Roopa Chaparro 01/20/17 21:[address] Glu mg/dL 183 01/16/17 22:20 Hemoglobin A1c 8.0 % (4.0-6.0) H 01/16/17 22:20 Plasma Lactic Acid Tomas 1.7 mmol/L (0.7-2.0) 01/17/17 07:48 Calcium 7.5 mg/dL (8.4-10.2) L 01/20/17 03:55 Phosphorus 5.2 mg/dL (2.5-4.5) H 01/20/17 03:55 Magnesium 1.8 mg/dL (1.6-2.3) 01/20/17 03:55 Iron 27 ug/dL (50-170) L 01/17/17 05:37 TIBC 191 ug/dL (228-460) L 01/17/17 05:37 Iron Saturation 14.14 (12.00-45.00) 01/17/17 05:37 Ferritin 9932.8 ng/mL (10.0-291.0) H 01/17/17 05:37 Total Bilirubin 0.5 mg/dL (0.2-1.3) 01/15/17 16:11 AST 42 U/L (14-36) H 01/15/17 16:11 ALT 37 U/L (9-52) 01/15/17 16:11 Alkaline Phosphatase 98 U/L (38-126) 01/15/17 16:11 Ammonia <9 umol/L (<30) 01/16/17 22:20 Total Creatine Kinase 76 U/L (30-135) 01/15/17 16:11 CK-MB (CK-2) 0.8 ng/mL (0.0-2.4) 01/15/17 16:11 CK-MB (CK-2) Rel Index 1.1 01/15/17 16:11 Troponin I 0.182 ng/mL (0.000-0.034) H* 01/16/17 03:13 NT-Pro-B Natriuret Pep 99010 pg/mL 01/16/17 08:00 Total Protein 6.5 g/dL (6.3-8.2) 01/15/17 16:11 Albumin 3.7 g/dL (3.5-5.0) 01/15/17 16:11 Urine Color Yellow 01/18/17 14:15 Urine Appearance Cloudy (Clear) H 01/18/17 14:15 Urine pH 7.0 (5.0-8.0) 01/18/17 14:15 Ur Specific [place] 1.014 (1.001-1.035) 01/18/17 14:15 Urine Protein 3+ (Negative) H 01/18/17 14:15 Urine Glucose (UA) 3+ (Negative) H 01/18/17 14:15 Urine Ketones Negative (Negative) 01/18/17 14:15 Urine Blood Moderate (Negative) H 01/18/17 14:15 Urine Nitrite Negative (Negative) 01/18/17 14:15 Urine Bilirubin Negative (Negative) 01/18/17 14:15 Urine Urobilinogen <2.0 mg/dL (<2.0) 01/18/17 14:15 Ur Leukocyte Esterase Moderate (Negative) H 01/18/17 14:15 Urine RBC 47 /hpf (0-5) H 01/18/17 14:15 Urine WBC 124 /hpf (0-5) H 01/18/17 14:15 Ur Squamous Epith Cells 95 /hpf (0-4) H 01/18/17 14:15 Urine Bacteria Few /hpf (None) H 01/18/17 14:15 Hyaline Casts 108 /lpf (0-2) H 01/18/17 14:15 Urine Mucus Rare /hpf (None) H 01/18/17 14:15 Urine Yeast (Budding) Few /hpf (None) H 01/18/17 14:15 Stool Occult Blood Positive (Negative) H 01/19/17 08:50 Random Vancomycin 25.4 ug/mL 01/20/17 03:55 Acetone, Qual Positive (Negative) 01/16/17 08:00 C. difficile (EIA) Intrp Negative (Negative) 01/19/17 05:00 Influenza Type A RNA Not Detected (Not Detectd) 01/15/17 15:50 Influenza Type B (PCR) Not Detected (Not Detectd) 01/15/17 15:50 Blood Type A Positive 01/19/17 08:50 Blood Type Recheck No 01/19/17 08:50 Antibody Screen POSITIVE 01/19/17 08:50 Antibody Identification Anti-K 01/19/17 08:50 Direct Antiglob Test Negative 01/19/17 08:50 Crossmatch See Detail 01/19/17 08:50 Spec Expiration Date 01/22/2017 - 2350 01/19/17 08:50 Microbiology 01/18/17 16:32 Blood Blood Culture - Preliminary No Growth after 48 hours 01/15/17 16:11 Blood Blood Culture - Preliminary No Growth after 120 hours 01/18/17 22:00 Blood Blood Culture - Preliminary No Growth after 24 hours 01/18/17 14:15 Urine,Catheterized Urine Culture - Final Linda sp,not albicans/galbr Assessment and Plan (1) Altered mental status Current Visit: Yes Status: Acute Code(s): R41.82 - ALTERED MENTAL STATUS, UNSPECIFIED SNOMED Code(s): 718986431 (2) Sepsis Narrative/Plan: 57-year-old female presents to emergency center with her family because of some altered mentation. At presentation is evidence of fever and concerns for sepsis. There is some data that is provided that at the dialysis center she had evidence of a positive blood culture. Intravenous antibiotic therapy was initiated the dialysis center with vancomycin. She's now presented to Hospital. There is evidence of worsening of her status. She developed diabetic ketoacidosis which further worsened her metabolic state. He also worsened her neurological state. Her DKA is now under much better control and insulin drip is newly turned off. The gap is closed. And she started to feel considerably better. However this ongoing concerns underlying sepsis. With her dialysis status vancomycin is appropriate however we'll alter ceftriaxone to ceftazidime ensure that were covering for Pseudomonas which is a more common pathogen in this population. Follow-up cultures are in process. Her DKA is being actively treated insulin drip is being currently tapered at this time. Was having some improvement but again is febrile again. Blood and urine cultures are process. Negative so far. At this time continue with vancomycin as well as ceftaxidime for coverage of staph and strep and pseudomonas. It does appear her significant ketosis is resolved. Nephrology is following and will address her significant anemia. Patient had some further fever last evening. Antimicrobial therapy was altered from Fortaz to meropenem. Repeat cultures were requested. Urine cultures in process. Prior blood cultures are negative. Mentation remains improved especially after hemodialysis. Current Visit: Yes Status: Acute Code(s): A41.9 - SEPSIS, UNSPECIFIED ORGANISM SNOMED Code(s): 06161781 (3) DKA (diabetic ketoacidoses) Current Visit: No Status: Acute Code(s): E13.10 - OTH DIABETES MELLITUS WITH KETOACIDOSIS WITHOUT COMA SNOMED Code(s): 495682270 (4) Chronic kidney disease with end stage renal failure on dialysis Current Visit: Yes Status: Acute Code(s): N18.6 - END STAGE RENAL DISEASE; Z99.2 - DEPENDENCE ON RENAL DIALYSIS SNOMED Code(s): 509890088
[2017-01-21 00:50] LABS: Glucose,Whole Blood 287 mg/dL (75-99)
[2017-01-21 02:19] LABS: Glucose,Whole Blood 300 mg/dL (75-99)
[2017-01-21] MEDS ORDERED: INSULIN LISPRO (humaLOG) 300 UNIT/3 ML VIAL SQ ONE (02:21)
[2017-01-21] MEDS ORDERED: INSULIN GLARGINE 100 UNIT/ML 10 ML VIAL SQ SCH (02:30)
[2017-01-21 06:02] LABS: Calcium 8.2 mg/dL (8.4-10.2); Magnesium 2.3 mg/dL (1.6-2.3); Phosphorus 4.3 mg/dL (2.5-4.5); Potassium 3.4 mmol/L (3.5-5.1)
[2017-01-21 06:03] LABS: Anisocytosis Slight; Aty Lym Flag Slight; CH 30.7; CHCM 32.4; HCT 29.1 % (34.0-46.0); HDW 4.21; Hypochromasia Slight; MCH 29.5 pg (25.0-35.0); MCHC 30.8 g/dL (31.0-37.0); MCV 95.8 fL (80.0-100.0); Macrocytosis Slight; Mean Platelet Volume 7.6; Poikilocytosis Moderate; RBC 3.04 m/uL (3.80-5.40); RDW 18.6 % (11.5-15.5); WBC 5.7 k/uL (3.8-10.6); WBC (Perox) 5.68
[2017-01-21 06:20] LABS: Add Differential Manual Differential
[2017-01-21 06:23] LABS: Band Neutrophils % 11 %; Manual Review Performed; Nucleated Red Blood Cells 0 /100 WBC (0-0); Total Cells Counted 100
[2017-01-21] MEDS: ALBUTEROL NEBULIZED 2.5 MG/3 ML INHALATION PRN (07:43)
[2017-01-21 07:44] LABS: Glucose,Whole Blood 132 mg/dL (75-99)
--- NOTE | 2017-01-21 08:01 | XR ---
EXAMINATION TYPE: XR chest 1V portable DATE OF EXAM: 01/21/2017 COMPARISON: Prior chest x-ray dated 01/20/2017 HISTORY: Abnormal chest x-ray correlation TECHNIQUE: Single frontal view of the chest is obtained. FINDINGS: There is no significant interval change accounting for differences in technique. IMPRESSION: Similar findings, correlate for congestive heart failure, correlate to exclude pneumonia . Follow-up recommended.
[2017-01-21] MEDS: POTASSIUM CHLORIDE ORAL LIQUID 40 MEQ/30 ML CUP PO SCH (08:30)
[2017-01-21] MEDS: INSULIN LISPRO (humaLOG) 300 UNIT/3 ML VIAL SQ SCH ×2 (08:47→12:40)
[2017-01-21] MEDS: FOLIC ACID-VIT B COMPLEX-VIT C 1 CAP PO SCH (08:57)
[2017-01-21] MEDS: AMIODARONE 200 MG TAB PO SCH ×2 (08:59→20:44)
[2017-01-21] MEDS: CLOPIDOGREL 75 MG TAB PO SCH (08:59)
[2017-01-21] MEDS: SEVELAMER 800 MG TAB PO SCH ×3 (08:59→17:28)
[2017-01-21] MEDS: ASPIRIN 81 MG PO SCH (08:59)
[2017-01-21] MEDS: GABAPENTIN 100 MG CAP PO SCH ×3 (08:59→21:23)
[2017-01-21] MEDS: MIDODRINE 5 MG TAB PO SCH (08:59)
--- NOTE | 2017-01-21 10:42 | P.PN ---
Subjective Progress Note Date: 01/21/17 Principal diagnosis: CAD/CHF This is a pleasant 57-year-old epigastric and female patient who follows with Dr. Dr. Calixto in the office on regular basis with known history of coronary artery disease and prior coronary artery angioplasty of the ramus intermedius coronary artery in July 2016, end stage renal disease on hemodialysis , known paroxysmal H or fibrillation on anticoagulation, as well as multiple comorbid conditions including diabetes, hypertension, dyslipidemia was brought by her from home to the hospital with a change in mental status. The patient initially was brought from the dialysis center to the emergency room because of fever. She was sent home at the same day because the workup in the ER was unremarkable. At home the following day the patient was feeling very weak with a change in mental status and her brought her to the emergency room. She did not have any fever or chills at home but she was experiencing cough productive of sputum. No chest pain and no shortness of breath. The patient was diagnosed with sepsis and she was found to have yeast in the urine. She is currently on antibiotic. Beside that she was anemic and the stool was positive for acute blood. The patient was given 2 units of packed RBC and she was receiving Coumadin which is on hold at this point. Also the patient went into an A. fib with RVR and she was started on amiodarone. Currently she is converted and she has been maintaining normal sinus mechanism. On follow-up with the patient today, she continues to be dynamically stable. She continues to have pleuritic chest discomfort. The chest x-ray showed findings consistent was pneumonia/CHF. Currently she is receiving dialysis. She has been maintaining normal sinus mechanism. Objective - Vital Signs Vital signs: Vital Signs Temp 99.5 F 01/21/17 01:00 Pulse 83 01/21/17 08:00 Resp 20 01/21/17 08:00 BP 112/42 01/21/17 08:00 Pulse Ox 100 01/20/17 18:00 Intake & Output 01/20/17 01/21/17 01/21/17 18:59 06:59 18:59 Intake Total 700 120 10 Output Total 2300 3 Balance -1600 117 10 Weight 69.2 kg 70 kg Intake: IV 120 120 10 0.9 KVO 120 120 10 Intake, IV Titration 100 Amount Meropenem 1 gm In Sodium 100 Chloride 0.9% 100 ml @ 200 mls/hr IVPB Q24H [facility] Rx#:[id number] Oral 480 Output: Urine 0 0 Stool 3 Other 2300 Other: # Voids 0 0 # Bowel Movements 1 - Constitutional General appearance: Present: no acute distress - Respiratory Respiratory: bilateral: rales - Cardiovascular Rhythm: regular Heart sounds: normal: S1, S2 - Labs CBC & Chem 7: 01/21/17 05:40 01/21/17 05:40 Labs: Abnormal Lab Results - Last 24 Hours (Table) 01/20/17 01/20/17 01/20/17 Range/Units 12:37 17:19 21:29 RBC (3.80-5.40) m/uL Hgb (11.4-16.0) gm/dL Hct (34.0-46.0) % MCHC (31.0-37.0) g/dL RDW (11.5-15.5) % Lymphocytes # (Manual) (1.0-4.8) k/uL Sodium (137-145) mmol/L Potassium (3.5-5.1) mmol/L Chloride (98-107) mmol/L BUN (7-17) mg/dL Creatinine (0.52-1.04) mg/dL Glucose (74-99) mg/dL POC Glucose (mg/dL) 326 H 344 H 313 H (75-99) mg/dL Calcium (8.4-10.2) mg/dL 01/21/17 01/21/17 01/21/17 Range/Units 00:47 02:13 05:40 RBC 3.04 L (3.80-5.40) m/uL Hgb 9.0 L (11.4-16.0) gm/dL Hct 29.1 L (34.0-46.0) % MCHC 30.8 L (31.0-37.0) g/dL RDW 18.6 H (11.5-15.5) % Lymphocytes # (Manual) 0.68 L (1.0-4.8) k/uL Sodium (137-145) mmol/L Potassium (3.5-5.1) mmol/L Chloride (98-107) mmol/L BUN (7-17) mg/dL Creatinine (0.52-1.04) mg/dL Glucose (74-99) mg/dL POC Glucose (mg/dL) 287 H 300 H (75-99) mg/dL Calcium (8.4-10.2) mg/dL 01/21/17 01/21/17 Range/Units 05:40 07:42 RBC (3.80-5.40) m/uL Hgb (11.4-16.0) gm/dL Hct (34.0-46.0) % MCHC (31.0-37.0) g/dL RDW (11.5-15.5) % Lymphocytes # (Manual) (1.0-4.8) k/uL Sodium 132 L (137-145) mmol/L Potassium 3.4 L (3.5-5.1) mmol/L Chloride 95 L (98-107) mmol/L BUN 49 H (7-17) mg/dL Creatinine 8.00 H* (0.52-1.04) mg/dL Glucose 179 H (74-99) mg/dL POC Glucose (mg/dL) 132 H (75-99) mg/dL Calcium 8.2 L (8.4-10.2) mg/dL Microbiology - Last 24 Hours (Table) 01/18/17 22:00 Blood Culture - Preliminary Blood No Growth after 48 hours 01/18/17 16:32 Blood Culture - Preliminary Blood No Growth after 48 hours 01/15/17 16:11 Blood Culture - Preliminary Blood No Growth after 120 hours Assessment and Plan Assessment: This is a pleasant 57-year-old -Spanish female patient with CAD, into stage renal disease on hemodialysis, paroxysmal A. fib, as well as multiple comorbid conditions was admitted to the hospital with a change in mental status and was found to be septic. She went into an A. fib with RVR and converted to normal sinus mechanism. From a perivascular standpoint of view, she seems to be stable at this point. She is on metoprolol as well as amiodarone. Coumadin is on hold at this point in view of the possible GI bleed. I am going to continue the current medical treatment and continue following up with her. I recommended the patient to be seen by GI service to rule out any GI bleeding. Thank you for allowing us participate in her care
--- NOTE | 2017-01-21 10:44 | P.PN ---
Subjective Progress Note Date: 01/21/17 Principal diagnosis: Acute sepsis A 57-year-old female patient who presented to the hospital because of altered mental status. The patient apparently was getting more lethargic and sleepy and somewhat confused. The patient was also having fever on an outpatient basis. Blood Cultures have been sent and the dialysis site and apparently the blood cultures were told to be positive and for that reason the patient was sent into the hospital. The patient was given a dose of vancomycin and the patient's random vancomycin level is at 32. The patient has some limited diarrhea which has subsided. No nausea. No vomiting. No abdominal pain. No chest pain. She has an AV Ciaran the left upper extremity for dialysis. No cellulitis. No headaches. No neck stiffness. At the time of my evaluation, the patient was afebrile and her mentation was already improving. She opened her eyes patient moved all 4 extremities. She was able to recognize me as of taking care of this patient the past 4 issues related to her incisional disease and fluid overload. This is a very pleasant -[place] female patient with known history of end-stage renal disease on hemodialysis 3 times a week, Wednesdays and Fridays via a left upper extremity AV graft. The patient has been compliant to her treatment. The patient is known to have coronary artery disease. The patient has undergone previous angioplasty of the ramus intermedius artery artery in July 2016. He has been hospitalized in the past to the intensive care unit for hypertensive emergency and fluid overload. She was treated appropriately without any complications. She has a preserved LV function with an ejection fraction of 55%. She also has a moderate degree of mitral regurgitation. Cardiac catheterization was done during her latest admission and she has smaller vessel coronary artery disease. Not abnormal for any intervention. Note that she had a similar presentation in 08/01/2016 when she came in with pulmonary edema and fluid overload and hypertensive urgency with systolic blood pressure running in the 180-190 range. At that time the patient was placed on nitroglycerin drip which improved her blood pressure control. Subsequently she had [id number] dialysis with ultrafiltration and the pulmonary edema recovered. She has a preserved LV function based on previous echocardiograms. Please refer also to the most recent cardiac catheterization was done in July 2016. On 01/18/2017 the patient is being seen in follow-up. As mentioned, the patient got transferred to the intensive care unit. She was having fever. She was in mild DKA. She was having altered mentation and fever. She got dialyzed yesterday and dialysis was successful and the patient she had 2 L of fluid taken off. This morning she is awake and alert and she is following commands and answering questions appropriately. She is having fever and her T-max was 11.7. She was seen by infectious disease yesterday. Rocephin was discontinued and the patient was given a dose of Fortaz. Vancomycin random level today is at 22. The patient is still having negative blood cultures. No nausea no vomiting no abdominal pain. She was a straight cathed yesterday and would awaiting for the urine analysis and urine culture results also. No headache. No seizure activity. She is on an insulin drip at 0.5 units an hour and her blood sugars under better control for now. The chest x-ray from today is showing marked improvement in the pulmonary edema and there is no consolidation or airspace disease. On 01/19/2017, patient seems to be doing a bit better, she is presently receiving hemodialysis, remains on antibiotics as per Dr. Mares, patient is now on Merrem and vancomycin. Her hemoglobin is 6.1, and the patient will likely receive a unit of packed RBCs after dialysis today. Blood cultures and urine cultures remain pending at this point. On 01/20/2017, patient seems to be doing much better, breathing easier, chest x- ray is showing improvement in fluid overload, received hemodialysis yesterday and 2 units of packed RBCs for hemoglobin of 6.1, today's hemoglobin is 8.6. Patient was also seen by cardiology for her paroxysmal atrial fibrillation, and recommended no further workup, patient remains on amiodarone and beta blockers. Today the patient is in normal sinus rhythm. Coumadin remains on hold because of her potential GI bleeding and low hemoglobin requiring 2 units of packed RBCs given yesterday. Labs were reviewed today, BUN is 30 creatinine is 5.30 sodium is 129 potassium is 3.4. I believe the patient is at this point relatively stable enough to be transferred out of the ICU. On 01/21/2017, patient continues to do relatively well, denies any specific complaints except for some pain and vague discomfort in the left thigh but no obvious physical findings noted. Patient denies any shortness of breath, no cough, no wheezing, no chest pain. Patient is about to have dialysis today again. CBC is relatively normal, hemoglobin is holding 9. BUN is 49 creatinine is 8.0. Blood cultures are still negative so far. And urine cultures positive for Linda. Objective - Vital Signs Vital signs: Vital Signs Temp 99.5 F 01/21/17 01:00 Pulse 83 01/21/17 08:00 Resp 20 01/21/17 08:00 BP 112/42 01/21/17 08:00 Pulse Ox 100 01/20/17 18:00 Intake & Output 01/20/17 01/21/17 01/21/17 18:59 06:59 18:59 Intake Total 700 120 10 Output Total 2300 3 Balance -1600 117 10 Weight 69.2 kg 70 kg Intake: IV 120 120 10 0.9 KVO 120 120 10 Intake, IV Titration 100 Amount Meropenem 1 gm In Sodium 100 Chloride 0.9% 100 ml @ 200 mls/hr IVPB Q24H [facility] Rx#:[id number] Oral 480 Output: Urine 0 0 Stool 3 Other 2300 Other: # Voids 0 0 # Bowel Movements 1 - Exam Physical Exam: Revealed a 57-year-old female in no distress. HEENT:[Neck is supple.] [No neck masses.] [No thyromegaly.] [No JVD.] Chest: [Diminished breath sounds at the bases, crackles at the bases noted. No rhonchi no wheezes Cardiac Exam: [Normal S1 and S2, no S3 gallop, no murmur.] Abdomen: [Soft, nontender, no megaly, no rebound, no guarding, normal bowel sounds.] Extremities: [No clubbing, no edema, no cyanosis.] Neurological Exam: [No focal neurologic deficit.] Psychiatric: Normal mood and affect, normal mental status examination. Musculoskeletal: Normal range of motion, no muscle tenderness, no weakness. Lymphatics: No lymphadenopathy. - Labs CBC & Chem 7: 01/21/17 05:40 01/21/17 05:40 Labs: Abnormal Lab Results - Last 24 Hours (Table) 01/20/17 01/20/17 01/20/17 Range/Units 12:37 17:19 21:29 RBC (3.80-5.40) m/uL Hgb (11.4-16.0) gm/dL Hct (34.0-46.0) % MCHC (31.0-37.0) g/dL RDW (11.5-15.5) % Lymphocytes # (Manual) (1.0-4.8) k/uL Sodium (137-145) mmol/L Potassium (3.5-5.1) mmol/L Chloride (98-107) mmol/L BUN (7-17) mg/dL Creatinine (0.52-1.04) mg/dL Glucose (74-99) mg/dL POC Glucose (mg/dL) 326 H 344 H 313 H (75-99) mg/dL Calcium (8.4-10.2) mg/dL 01/21/17 01/21/17 01/21/17 Range/Units 00:47 02:13 05:40 RBC 3.04 L (3.80-5.40) m/uL Hgb 9.0 L (11.4-16.0) gm/dL Hct 29.1 L (34.0-46.0) % MCHC 30.8 L (31.0-37.0) g/dL RDW 18.6 H (11.5-15.5) % Lymphocytes # (Manual) 0.68 L (1.0-4.8) k/uL Sodium (137-145) mmol/L Potassium (3.5-5.1) mmol/L Chloride (98-107) mmol/L BUN (7-17) mg/dL Creatinine (0.52-1.04) mg/dL Glucose (74-99) mg/dL POC Glucose (mg/dL) 287 H 300 H (75-99) mg/dL Calcium (8.4-10.2) mg/dL 01/21/17 01/21/17 Range/Units 05:40 07:42 RBC (3.80-5.40) m/uL Hgb (11.4-16.0) gm/dL Hct (34.0-46.0) % MCHC (31.0-37.0) g/dL RDW (11.5-15.5) % Lymphocytes # (Manual) (1.0-4.8) k/uL Sodium 132 L (137-145) mmol/L Potassium 3.4 L (3.5-5.1) mmol/L Chloride 95 L (98-107) mmol/L BUN 49 H (7-17) mg/dL Creatinine 8.00 H* (0.52-1.04) mg/dL Glucose 179 H (74-99) mg/dL POC Glucose (mg/dL) 132 H (75-99) mg/dL Calcium 8.2 L (8.4-10.2) mg/dL Microbiology - Last 24 Hours (Table) 01/18/17 22:00 Blood Culture - Preliminary Blood No Growth after 48 hours 01/18/17 16:32 Blood Culture - Preliminary Blood No Growth after 48 hours 01/15/17 16:11 Blood Culture - Preliminary Blood No Growth after 120 hours Assessment and Plan Plan: 1 altered mentation along with fever. Improving, felt to be related to underlying sepsis. Blood cultures and other cultures remain negative. This is being addressed by Dr. Mares on the case. Remains on antibiotics as already noted. 2 acute febrile illness on that investigation must see discussion above 3 coronary artery disease status post angioplasty of the ramus intermedius branch 4 End stage renal disease on hemodialysis, 5 diabetes mellitus with poorly controlled blood sugars currently on insulin drip for blood sugar control the patient had some ketones and mild anion gap metabolic acidosis with an anion gap of 23 6 hypertensive with a poorly controlled blood pressure 7 hyperlipidemia 8 CVA/TIA 9 previous history of GI bleeding 10. peripheral Vascular disease 11 diverticulosis 12 osteoarthritis 13 CHF with a component of fluid overload/pulmonary edema with elevated BNP level. The patient is not having any major respiratory distress and the patient will be having dialysis today. BNP level has been chronically elevated. On today's chest x-ray there is marked improvement in volume status and the pulmonary edema that was discussed earlier as the patient had a 2 L of ultrafiltration. 14 paroxysmal atrial fibrillation, presently under control. Recommendation: Continue present treatment plan, patient will be transferred to a regular medical floor today, continue dialysis as scheduled today, will recommend discharge planning in the next 24-48 hours. Chest x-ray was reviewed again today, still suggestive of congestive heart failure, possibility of underlying pneumonia is not entirely ruled out. Time with Patient: Less than 30
[2017-01-21] MEDS: amLODIPine 5 MG TAB PO SCH (11:39)
[2017-01-21] MEDS: METOPROLOL SUCCINATE (ER) 50 MG TAB.ER.24H PO SCH (11:39)
[2017-01-21 11:49] LABS: Glucose,Whole Blood 111 mg/dL (75-99)
[2017-01-21] MEDS ORDERED: MIDODRINE 5 MG TAB PO ONE (12:45)
[2017-01-21] MEDS: HYDROcodone/APAP 5-325MG 1 EACH TAB PO PRN ×2 (13:29→20:44)
--- NOTE | 2017-01-21 15:23 | PN ---
PROGRESS NOTE Patient is seen for followup for end-stage renal disease. She is currently sitting up in bed. Her mentation is significantly improved. She remains afebrile. However, she is short of breath. EXAMINATION: Blood pressure is 112/42, heart rate 94 per minute. She is afebrile. Examination of the heart S1, S2. Examination lungs: Bilateral breath sounds are heard. Crackles are heard at the bases. Abdomen is soft, nontender. Examination lower extremities shows no evidence of edema. BRICK SORTER exam is grossly intact. LABS SHOW: 1. Sodium 132, potassium 3.2, hemoglobin 9.0 g/dL. ASSESSMENT: 1. End-stage renal disease, on hemodialysis on a Thursday, Thursday, Thursday schedule. The patient received an extra treatment yesterday, mainly ultrafiltration. 2. Hypokalemia. Will replace with dialysis. 3. Anemia of chronic disease. The patient has had a GI bleed as well. She is currently maintained on Aranesp, which we will continue. Aanticoagulation is now on hold. 4. Fever, unclear etiology. However, patient is now afebrile. 5. Fluid overload currently improved. 6. CKD mineral bone disorder maintained on . 7. Atrial fibrillation with a controlled ventricular response maintained on amiodarone. 8. Altered mentation, slowly improving. 9. PLAN: 1. The goal UF of about 2-2.5 L today and will reassess tomorrow if the patient needs ultrafiltration depending on her volume status. MMODL / IJN: [id number] /
[2017-01-21] MEDS ORDERED: VANCOMYCIN 1,000 MG in SODIUM CHLORIDE 0.9% 250 ML IVPB ONE (16:00)
[2017-01-21] MEDS: INSULIN ASPART 100 UNIT/ML 1 ML 10 ML VIAL SQ SCH ×2 (17:29→21:22)
[2017-01-21 17:32] LABS: Glucose,Whole Blood 300 mg/dL (75-99)
[2017-01-21] MEDS: MEROPENEM 1 GM in SODIUM CHLORIDE 0.9% 100 ML IVPB SCH (18:18)
[2017-01-21] MEDS: ATORVASTATIN 40 MG TAB PO SCH (20:44)
[2017-01-21 21:19] LABS: Glucose,Whole Blood 190 mg/dL (75-99)
[2017-01-21] MEDS: INSULIN DETEMIR 100 UNIT/ML 10 ML VIAL SQ SCH (21:22)
[2017-01-21] MEDS: guaiFENesin SYRUP 100MG/5ML 200 MG/10 ML CUP PO PRN (21:23)
--- NOTE | 2017-01-21 23:19 | P.PN ---
Subjective Progress Note Date: 01/20/17 Principal diagnosis: Sepsis Patient is a 56-year-old female with a past medical history of ESRD on hemodialysis MWF via AV graft, hypertension, diabetes type 2 history of coronary disease and recently diagnosed atrial fibrillation and was started on anticoagulation with Coumadin presented to the ER due to altered mental status. Patient had hemodialysis last night. Patient was supposed to be confused at the time. Patient woke up next morning with more confusion and also noted to have fevers. Patient's family member says that blood culture set dialysis Center showed infection and patient was sent to Hospital. Otherwise patient seems to be lethargic and confused but oriented 2. Denied any complaints of chest pain or short of breath. No nausea or nausea vomiting or diarrhea. Patient had one episode of diarrhea and C. diff was sent. Today afternoon patient became more confused and shortness of breath requiring oxygen. Patient was placed on Ventimask and repeat labs were attempted but could not get IV access. Patient was placed on telemetry monitoring and ABGs will be obtained. Patient had hemodialysis today. Chest x-ray on admission showed fluid overload BNP greater than 80,000 on admission. Patient was recently admitted to the hospital with a GI bleed/darker stools. Patient was started back on anti-coagulation after a week and current hemoglobin is 7.9. Otherwise patient does not have any fever or chills now . Blood cultures were sent. No leukocytosis noted. Patient was found to have hyperglycemia and was started on insulin drip. Her gap 23 and bicarbonate 19. Acetone positive. 01/17/2017 Patient seems to be confused on and off. Patient currently is to be febrile today. Blood cultures are negative so far. Patient denied any worsening short of breath. No complaints of chest pain. No diarrhea no abdominal pain. Anion gap closed. Insulin drip has been discontinued. Patient will be transferred to MICU due to patient condition of fever and altered mental status. 01/18/2017 Patient was improving clinically decreased orientation but today morning patient became febrile again. Blood cultures is negative so far. Patient was on vancomycin and ceftazidime. Ceftazidime was changed to meropenem as widely recommendations. Patient is still having mild DKA. Patient did have hemodialysis today with 2 l ultrafiltration. Chest x-ray showed improvement in CHF . Patient denied any short of breath. No complaints of chest pain. No nausea vomiting or abdominal pain. 01/19/2017 Patient is more awake and oriented today. Fever improved. Continue on antibiotics in the form of vancomycin and meropenem. ID and pulmonary is on board. Patient denied any complaints of chest pain or short of breath. No nausea vomiting. Hemoglobin found to be 6.1 and will be getting 1 unit PRBC during hemodialysis today. 01/20/2017 Patient is more awake and oriented today. Patient did have hemodialysis. Urine culture showed Linda species. Chest x-ray showed improved air space disease. Patient did have low-grade fever otherwise no complaints of chest pain or short of breath. No nausea vomiting or abdominal pain. All other review of systems negative except the above Current medications reviewed Objective - Vital Signs Vital signs: Vital Signs Temp 99 F 01/20/17 08:00 Pulse 90 01/20/17 10:00 Resp 26 H 01/20/17 10:00 BP 109/53 01/20/17 10:00 Pulse Ox 95 01/20/17 10:00 Intake & Output 01/19/17 01/20/17 01/20/17 18:59 06:59 18:59 Intake Total 1360 320 280 Output Total 0 0 0 Balance 1360 320 280 Weight 69.2 kg Intake: IV 120 120 40 0.9 KVO 120 120 40 Oral 200 240 Blood Product 1240 Rc As-3 Unit 310 [id number] Rc As-3 Unit 310 [id number] Output: Urine 0 0 0 Other: Voiding Method Diaper # Voids 0 # Bowel Movements 1 1 - Exam PHYSICAL EXAMINATION: Patient is lying in the bed comfortably, no acute distress, awake alert but confused and is oriented. HEENT: Normocephalic. Neck is supple. Pupils reactive. Nostrils clear. Oral cavity is moist. Ears reveal no drainage. Neck reveals no JVD, carotid bruits, or thyromegaly. CHEST EXAMINATION: Trachea is central. Symmetrical expansion. Bilateral diminished air entry basally. No wheezing CARDIAC: Normal S1, S2 with no gallops. No murmurs ABDOMEN: Soft. Bowel sounds normal. No organomegaly. No abdominal bruits. Extremities: reveal no edema. No clubbing or cyanosis Neurologically awake, alert, oriented x3 with well-coordinated movements. No focal deficits noted Skin: No rash or skin lesions. Psychiatric: Operative. Nonsuicidal Musculoskeletal: No joint swelling or deformity. Normal range of motion. - Labs CBC & Chem 7: 01/21/17 05:40 01/21/17 05:40 Labs: Abnormal Lab Results - Last 24 Hours (Table) 01/19/17 01/19/17 01/19/17 Range/Units 08:50 10:51 14:30 RBC 3.25 L (3.80-5.40) m/uL Hgb 9.8 L D (11.4-16.0) gm/dL Hct 30.4 L (34.0-46.0) % RDW 19.3 H (11.5-15.5) % Plt Count (150-450) k/uL Lymphocytes # 0.2 L (1.0-4.8) k/uL Sodium (137-145) mmol/L Potassium (3.5-5.1) mmol/L Chloride (98-107) mmol/L BUN (7-17) mg/dL Creatinine (0.52-1.04) mg/dL Glucose (74-99) mg/dL POC Glucose (mg/dL) 120 H (75-99) mg/dL Calcium (8.4-10.2) mg/dL Phosphorus (2.5-4.5) mg/dL Crossmatch See Detail 01/19/17 01/19/17 01/19/17 Range/Units 15:44 17:36 20:59 RBC (3.80-5.40) m/uL Hgb (11.4-16.0) gm/dL Hct (34.0-46.0) % RDW (11.5-15.5) % Plt Count (150-450) k/uL Lymphocytes # (1.0-4.8) k/uL Sodium (137-145) mmol/L Potassium (3.5-5.1) mmol/L Chloride (98-107) mmol/L BUN (7-17) mg/dL Creatinine (0.52-1.04) mg/dL Glucose (74-99) mg/dL POC Glucose (mg/dL) 162 H 177 H 170 H (75-99) mg/dL Calcium (8.4-10.2) mg/dL Phosphorus (2.5-4.5) mg/dL Crossmatch 01/20/17 01/20/17 01/20/17 Range/Units 03:55 03:55 07:18 RBC 2.89 L (3.80-5.40) m/uL Hgb 8.6 L (11.4-16.0) gm/dL Hct 27.2 L (34.0-46.0) % RDW 19.9 H (11.5-15.5) % Plt Count 146 L (150-450) k/uL Lymphocytes # 0.2 L (1.0-4.8) k/uL Sodium 129 L (137-145) mmol/L Potassium 3.4 L (3.5-5.1) mmol/L Chloride 96 L (98-107) mmol/L BUN 30 H (7-17) mg/dL Creatinine 5.30 H* (0.52-1.04) mg/dL Glucose 235 H (74-99) mg/dL POC Glucose (mg/dL) 228 H (75-99) mg/dL Calcium 7.5 L (8.4-10.2) mg/dL Phosphorus 5.2 H (2.5-4.5) mg/dL Crossmatch Microbiology - Last 24 Hours (Table) 01/18/17 22:00 Blood Culture - Preliminary Blood No Growth after 24 hours 01/18/17 16:32 Blood Culture - Preliminary Blood No Growth after 24 hours 01/15/17 16:11 Blood Culture - Preliminary Blood No Growth after 96 hours 01/18/17 14:15 Urine Culture - Final Urine,Catheterized Linda sp,not albicans/galbr Assessment and Plan Assessment: #1 fever with sepsis. Patient had positive blood cultures at dialysis center. Suspected pneumonia.. Influenza negative. Chest x-ray showed fluid overload no infiltrates noted. Urine culture was ordered. Showed Linda species. Patient does not have any cough or sputum production. Blood cultures were sent. Currently patient is afebrile. We'll follow up on culture reports. C. diff toxin negative. #2 altered mental status/metabolic encephalopathy likely due to infection and electrolyte abnormality. Improving #2 acute hypoxic respiratory failure secondary to fluid overload. #3 mild DKA. Patient was started on insulin drip. AG-16 and a acetone positive. Resolving now #2 recent Dark colored stools due to GI bleed. Hemoglobin 7.9 on admission. Will follow H&H. Patient has been started on Coumadin. #2 paroxysmal atrial fibrillation on anticoagulation with Coumadin #3 ESRD on hemo-dialysis. Left AV graft. Thursday was decided #3 history of coronary artery disease status post stent placement #5. Anemia of chronic disease on epogen. Status post 1 unit PRBC transfusion on 01/19 #6 elevated troponin level. Unlikely acute [place] #7 diabetes type 2 uncontrolled with A1c 8.4 #8 hypertension #9 history of GI bleed in November 2015. Status post coloscopy and found to have AVM Plan: Patient had hemodialysis done on today with 2 l ultrafiltration. Chest x-ray showed much improvement. Insulin drip was discontinued and currently on insulin regimen.. We will continue the antibiotics in the form of vancomycin and ceftazidime---> meropenem.. Will follow-up blood cultures and urine cultures. Nephrology is on board. Will monitor H&H. Further recommendations based on the clinical course. Prognosis is guarded with multiple medical problems and comorbid conditions discussed with family in detail at bedside. Time with Patient: Greater than 30
--- NOTE | 2017-01-21 23:23 | P.PN ---
Subjective Progress Note Date: 01/21/17 Principal diagnosis: Sepsis Patient is a 56-year-old female with a past medical history of ESRD on hemodialysis MWF via AV graft, hypertension, diabetes type 2 history of coronary disease and recently diagnosed atrial fibrillation and was started on anticoagulation with Coumadin presented to the ER due to altered mental status. Patient had hemodialysis last night. Patient was supposed to be confused at the time. Patient woke up next morning with more confusion and also noted to have fevers. Patient's family member says that blood culture set dialysis Center showed infection and patient was sent to Hospital. Otherwise patient seems to be lethargic and confused but oriented 2. Denied any complaints of chest pain or short of breath. No nausea or nausea vomiting or diarrhea. Patient had one episode of diarrhea and C. diff was sent. Today afternoon patient became more confused and shortness of breath requiring oxygen. Patient was placed on Ventimask and repeat labs were attempted but could not get IV access. Patient was placed on telemetry monitoring and ABGs will be obtained. Patient had hemodialysis today. Chest x-ray on admission showed fluid overload BNP greater than 80,000 on admission. Patient was recently admitted to the hospital with a GI bleed/darker stools. Patient was started back on anti-coagulation after a week and current hemoglobin is 7.9. Otherwise patient does not have any fever or chills now . Blood cultures were sent. No leukocytosis noted. Patient was found to have hyperglycemia and was started on insulin drip. Her gap 23 and bicarbonate 19. Acetone positive. 01/17/2017 Patient seems to be confused on and off. Patient currently is to be febrile today. Blood cultures are negative so far. Patient denied any worsening short of breath. No complaints of chest pain. No diarrhea no abdominal pain. Anion gap closed. Insulin drip has been discontinued. Patient will be transferred to MICU due to patient condition of fever and altered mental status. 01/18/2017 Patient was improving clinically decreased orientation but today morning patient became febrile again. Blood cultures is negative so far. Patient was on vancomycin and ceftazidime. Ceftazidime was changed to meropenem as widely recommendations. Patient is still having mild DKA. Patient did have hemodialysis today with 2 l ultrafiltration. Chest x-ray showed improvement in CHF . Patient denied any short of breath. No complaints of chest pain. No nausea vomiting or abdominal pain. 01/19/2017 Patient is more awake and oriented today. Fever improved. Continue on antibiotics in the form of vancomycin and meropenem. ID and pulmonary is on board. Patient denied any complaints of chest pain or short of breath. No nausea vomiting. Hemoglobin found to be 6.1 and will be getting 1 unit PRBC during hemodialysis today. 01/20/2017 Patient is more awake and oriented today. Patient did have hemodialysis. Urine culture showed Linda species. Chest x-ray showed improved air space disease. Patient did have low-grade fever otherwise no complaints of chest pain or short of breath. No nausea vomiting or abdominal pain. 01/21/2017 Patient is awake and oriented 3. Today patient isn't complaining of bilateral thigh pain. No swelling or redness noted. Otherwise patient denied any chest pain or short of breath. Patient has been afebrile today. Chest x-ray showed improvement CHF and correlate for pneumonia. Otherwise patient denied any new complaints. Patient is being transferred to general medical floor. All other review of systems negative except the above Current medications reviewed Objective - Vital Signs Vital signs: Vital Signs Temp 99.5 F 01/21/17 01:00 Pulse 83 01/21/17 08:00 Resp 20 01/21/17 18:19 BP 112/42 01/21/17 08:00 Pulse Ox 100 01/20/17 18:00 Intake & Output 01/21/17 01/21/17 01/22/17 06:59 18:59 06:59 Intake Total 120 150 Output Total 3 2302 Balance 117 -2152 Weight 70 kg Intake: IV 120 70 0.9 KVO 120 70 Oral 80 Output: Urine 0 0 Stool 3 2 Other 2300 Other: Voiding Method Diaper # Voids 0 1 # Bowel Movements 1 - Exam PHYSICAL EXAMINATION: Patient is lying in the bed comfortably, no acute distress, awake alert but confused and is oriented. HEENT: Normocephalic. Neck is supple. Pupils reactive. Nostrils clear. Oral cavity is moist. Ears reveal no drainage. Neck reveals no JVD, carotid bruits, or thyromegaly. CHEST EXAMINATION: Trachea is central. Symmetrical expansion. Bilateral diminished air entry basally. No wheezing CARDIAC: Normal S1, S2 with no gallops. No murmurs ABDOMEN: Soft. Bowel sounds normal. No organomegaly. No abdominal bruits. Extremities: reveal no edema. No clubbing or cyanosis Neurologically awake, alert, oriented x3 with well-coordinated movements. No focal deficits noted Skin: No rash or skin lesions. Psychiatric: Operative. Nonsuicidal Musculoskeletal: No joint swelling or deformity. Normal range of motion. - Labs CBC & Chem 7: 01/21/17 05:40 01/21/17 05:40 Labs: Abnormal Lab Results - Last 24 Hours (Table) 01/19/17 01/21/17 01/21/17 Range/Units 08:50 00:47 02:13 RBC (3.80-5.40) m/uL Hgb (11.4-16.0) gm/dL Hct (34.0-46.0) % MCHC (31.0-37.0) g/dL RDW (11.5-15.5) % Lymphocytes # (Manual) (1.0-4.8) k/uL Sodium (137-145) mmol/L Potassium (3.5-5.1) mmol/L Chloride (98-107) mmol/L BUN (7-17) mg/dL Creatinine (0.52-1.04) mg/dL Glucose (74-99) mg/dL POC Glucose (mg/dL) 287 H 300 H (75-99) mg/dL Calcium (8.4-10.2) mg/dL Crossmatch See Detail 01/21/17 01/21/17 01/21/17 Range/Units 05:40 05:40 07:42 RBC 3.04 L (3.80-5.40) m/uL Hgb 9.0 L (11.4-16.0) gm/dL Hct 29.1 L (34.0-46.0) % MCHC 30.8 L (31.0-37.0) g/dL RDW 18.6 H (11.5-15.5) % Lymphocytes # (Manual) 0.68 L (1.0-4.8) k/uL Sodium 132 L (137-145) mmol/L Potassium 3.4 L (3.5-5.1) mmol/L Chloride 95 L (98-107) mmol/L BUN 49 H (7-17) mg/dL Creatinine 8.00 H* (0.52-1.04) mg/dL Glucose 179 H (74-99) mg/dL POC Glucose (mg/dL) 132 H (75-99) mg/dL Calcium 8.2 L (8.4-10.2) mg/dL Crossmatch 01/21/17 01/21/17 01/21/17 Range/Units 11:48 17:30 20:55 RBC (3.80-5.40) m/uL Hgb (11.4-16.0) gm/dL Hct (34.0-46.0) % MCHC (31.0-37.0) g/dL RDW (11.5-15.5) % Lymphocytes # (Manual) (1.0-4.8) k/uL Sodium (137-145) mmol/L Potassium (3.5-5.1) mmol/L Chloride (98-107) mmol/L BUN (7-17) mg/dL Creatinine (0.52-1.04) mg/dL Glucose (74-99) mg/dL POC Glucose (mg/dL) 111 H 300 H 190 H (75-99) mg/dL Calcium (8.4-10.2) mg/dL Crossmatch Microbiology - Last 24 Hours (Table) 01/18/17 16:32 Blood Culture - Preliminary Blood No Growth after 72 hours 01/15/17 16:11 Blood Culture - Final Blood No Growth after 144 hours 01/18/17 22:00 Blood Culture - Preliminary Blood No Growth after 48 hours Assessment and Plan Assessment: #1 fever with sepsis. Patient had positive blood cultures at dialysis center. Suspected pneumonia.. Influenza negative. Chest x-ray showed fluid overload no infiltrates noted. Urine culture was ordered. Showed Linda species. Patient does not have any cough or sputum production. Blood cultures showed no growth. Currently patient is afebrile. C. diff toxin negative. #2 altered mental status/metabolic encephalopathy likely due to infection and electrolyte abnormality. Improving #2 acute hypoxic respiratory failure secondary to fluid overload. #2 acute on chronic CHF with diastolic dysfunction due to fluid overload. #3 mild DKA. Patient was started on insulin drip. AG-16 and a acetone positive. Resolving now #2 recent Dark colored stools due to GI bleed. Hemoglobin 7.9 on admission. Will follow H&H. Coumadin on hold now. #2 paroxysmal atrial fibrillation on anticoagulation with Coumadin #3 ESRD on hemo-dialysis. Left AV graft. Thursday was decided #3 history of coronary artery disease status post stent placement #5. Anemia of chronic disease on epogen. Status post 1 unit PRBC transfusion on 01/19 #6 elevated troponin level. Unlikely acute [place] #7 diabetes type 2 uncontrolled with A1c 8.4 #8 hypertension #9 history of GI bleed in November 2015. Status post coloscopy and found to have AVM Plan: Patient had hemodialysis done on today with 2 l ultrafiltration. Chest x-ray showed much improvement. Insulin drip was discontinued and currently on insulin regimen.. We will continue the antibiotics in the form of vancomycin and ceftazidime---> meropenem.. Blood cultures negative so far. Urine culture showed Linda Nephrology is on board. Will monitor H&H. Further recommendations based on the clinical course. Prognosis is guarded with multiple medical problems and comorbid conditions discussed with family in detail at bedside. Time with Patient: Greater than 30
[2017-01-22] MEDS: guaiFENesin SYRUP 100MG/5ML 200 MG/10 ML CUP PO PRN ×2 (06:25→21:30)
[2017-01-22 07:09] LABS: Glucose,Whole Blood 63 mg/dL (75-99)
[2017-01-22] MEDS: ALBUTEROL NEBULIZED 2.5 MG/3 ML INHALATION PRN (07:11)
[2017-01-22] MEDS: INSULIN ASPART 100 UNIT/ML 1 ML 10 ML VIAL SQ SCH ×4 (07:31→21:28)
[2017-01-22 07:54] LABS: Glucose,Whole Blood 66 mg/dL (75-99)
[2017-01-22 07:54] LABS: Glucose,Whole Blood 52 mg/dL (75-99)
[2017-01-22 08:15] LABS: Glucose,Whole Blood 56 mg/dL (75-99)
[2017-01-22] MEDS: POTASSIUM CHLORIDE ORAL LIQUID 40 MEQ/30 ML CUP PO SCH (08:23)
[2017-01-22] MEDS: HYDROcodone/APAP 5-325MG 1 EACH TAB PO PRN ×2 (08:23→18:00)
[2017-01-22 08:24] LABS: Glucose,Whole Blood 83 mg/dL (75-99)
[2017-01-22] MEDS: SEVELAMER 800 MG TAB PO SCH ×3 (08:24→18:01)
[2017-01-22] MEDS: AMIODARONE 200 MG TAB PO SCH ×2 (08:24→21:27)
[2017-01-22] MEDS: GABAPENTIN 100 MG CAP PO SCH ×3 (08:24→21:30)
[2017-01-22] MEDS: METOPROLOL SUCCINATE (ER) 50 MG TAB.ER.24H PO SCH (08:25)
[2017-01-22] MEDS: CLOPIDOGREL 75 MG TAB PO SCH (08:25)
[2017-01-22] MEDS: FOLIC ACID-VIT B COMPLEX-VIT C 1 CAP PO SCH (08:25)
[2017-01-22] MEDS: amLODIPine 5 MG TAB PO SCH (08:25)
[2017-01-22] MEDS: ASPIRIN 81 MG PO SCH (08:25)
[2017-01-22 12:19] LABS: Glucose,Whole Blood 168 mg/dL (75-99)
[2017-01-22] MEDS: ONDANSETRON 4 MG/2 ML VIAL IVP PRN ×2 (12:27→18:04)
--- NOTE | 2017-01-22 13:01 | P.PN ---
Subjective Patient is seen in follow-up for end-stage renal disease. She is maintained on hemodialysis on a Thursday schedule. Patient presented with altered mental status and fever. There wasn't a clear cause to the fever. She has been afebrile now. She was recently started on anticoagulation for atrial fibrillation seems to have developed recurring GI bleed. Anticoagulation is been discontinued for now. Denies any melena or hematochezia. Denies any other signs of bleeding. She's currently resting in bed. She denies any chest pain. Her dyspnea has improved. Appetite is gradually returning. Vital signs are stable. General: The patient appeared well nourished and normally developed. HEENT: Head exam is unremarkable. Neck is without jugular venous distension. LUNGS: Lungs are clear to auscultation and percussion. Breath sounds decreased. HEART: Rate and Rhythm are regular. First and second heart sounds normal. No murmurs, rubs or gallops. ABDOMEN: Abdominal exam reveals normal bowel sounds. Non-tender and non- distended. No evidence of peritonitis. EXTREMITITES: No clubbing, cyanosis, or edema. Objective - Vital Signs Vital signs: Vital Signs Temp 97.4 F L 01/22/17 07:00 Pulse 58 L 01/22/17 08:00 Resp 16 01/22/17 08:00 BP 126/63 01/22/17 07:00 Pulse Ox 95 01/22/17 07:11 Intake & Output 01/21/17 01/22/17 01/22/17 18:59 06:59 18:59 Intake Total 150 Output Total 2302 Balance -2152 Intake: IV 70 0.9 KVO 70 Oral 80 Output: Urine 0 Stool 2 Other 2300 Other: Voiding Method Diaper Diaper Diaper Incontinent Incontinent # Voids 1 0 - Labs CBC & Chem 7: 01/21/17 05:40 01/21/17 05:40 Labs: Abnormal Lab Results - Last 24 Hours (Table) 01/19/17 01/21/17 01/21/17 Range/Units 08:50 17:30 20:55 POC Glucose (mg/dL) 300 H 190 H (75-99) mg/dL Crossmatch See Detail 01/22/17 01/22/17 01/22/17 Range/Units 06:54 07:18 07:42 POC Glucose (mg/dL) 63 L 52 L 66 L (75-99) mg/dL Crossmatch 01/22/17 01/22/17 Range/Units 08:02 12:17 POC Glucose (mg/dL) 56 L 168 H (75-99) mg/dL Crossmatch Microbiology - Last 24 Hours (Table) 01/18/17 22:00 Blood Culture - Preliminary Blood No Growth after 72 hours 01/18/17 16:32 Blood Culture - Preliminary Blood No Growth after 72 hours 01/15/17 16:11 Blood Culture - Final Blood No Growth after 144 hours Assessment and Plan Plan: Assessment: #1. End-stage renal disease maintained on hemodialysis on a Thursday schedule. #2. Anemia of chronic kidney disease. She is also developed GI bleed from anticoagulation which is now held. Maintained on Aranesp. #3. Fever. Etiology not clear. She is afebrile now. Urine culture did grow Linda species. #4. Atrial fibrillation maintained on amiodarone. Anticoagulation held. #5. Chronic kidney disease mineral bone disease. #6. Volume overload. Improved. #7. Insulin dependent diabetes mellitus. Plan: Hemodialysis tomorrow with goal 3 L ultrafiltration. Maintain Renvela with meals. Antibiotics per infectious disease recommendations. Continue with midodrine prior to dialysis to achieve ultrafiltration goal.
--- NOTE | 2017-01-22 13:20 | P.PN ---
Subjective Progress Note Date: 01/22/17 Principal diagnosis: altered mentation, fever possibly related to underlying sepsis. A 57-year-old female patient who presented to the hospital because of altered mental status. The patient apparently was getting more lethargic and sleepy and somewhat confused. The patient was also having fever on an outpatient basis. Blood Cultures have been sent and the dialysis site and apparently the blood cultures were told to be positive and for that reason the patient was sent into the hospital. The patient was given a dose of vancomycin and the patient's random vancomycin level is at 32. The patient has some limited diarrhea which has subsided. No nausea. No vomiting. No abdominal pain. No chest pain. She has an AV Ciaran the left upper extremity for dialysis. No cellulitis. No headaches. No neck stiffness. At the time of my evaluation, the patient was afebrile and her mentation was already improving. She opened her eyes patient moved all 4 extremities. She was able to recognize me as of taking care of this patient the past 4 issues related to her incisional disease and fluid overload. This is a very pleasant -[place] female patient with known history of end-stage renal disease on hemodialysis 3 times a week, Wednesdays and Fridays via a left upper extremity AV graft. The patient has been compliant to her treatment. The patient is known to have coronary artery disease. The patient has undergone previous angioplasty of the ramus intermedius artery artery in July 2016. He has been hospitalized in the past to the intensive care unit for hypertensive emergency and fluid overload. She was treated appropriately without any complications. She has a preserved LV function with an ejection fraction of 55%. She also has a moderate degree of mitral regurgitation. Cardiac catheterization was done during her latest admission and she has smaller vessel coronary artery disease. Not abnormal for any intervention. Note that she had a similar presentation in 08/01/2016 when she came in with pulmonary edema and fluid overload and hypertensive urgency with systolic blood pressure running in the 180-190 range. At that time the patient was placed on nitroglycerin drip which improved her blood pressure control. Subsequently she had [id number] dialysis with ultrafiltration and the pulmonary edema recovered. She has a preserved LV function based on previous echocardiograms. Please refer also to the most recent cardiac catheterization was done in July 2016. On 01/18/2017 the patient is being seen in follow-up. As mentioned, the patient got transferred to the intensive care unit. She was having fever. She was in mild DKA. She was having altered mentation and fever. She got dialyzed yesterday and dialysis was successful and the patient she had 2 L of fluid taken off. This morning she is awake and alert and she is following commands and answering questions appropriately. She is having fever and her T-max was 11.7. She was seen by infectious disease yesterday. Rocephin was discontinued and the patient was given a dose of Fortaz. Vancomycin random level today is at 22. The patient is still having negative blood cultures. No nausea no vomiting no abdominal pain. She was a straight cathed yesterday and would awaiting for the urine analysis and urine culture results also. No headache. No seizure activity. She is on an insulin drip at 0.5 units an hour and her blood sugars under better control for now. The chest x-ray from today is showing marked improvement in the pulmonary edema and there is no consolidation or airspace disease. On 01/19/2017, patient seems to be doing a bit better, she is presently receiving hemodialysis, remains on antibiotics as per Dr. Mares, patient is now on Merrem and vancomycin. Her hemoglobin is 6.1, and the patient will likely receive a unit of packed RBCs after dialysis today. Blood cultures and urine cultures remain pending at this point. On 01/20/2017, patient seems to be doing much better, breathing easier, chest x- ray is showing improvement in fluid overload, received hemodialysis yesterday and 2 units of packed RBCs for hemoglobin of 6.1, today's hemoglobin is 8.6. Patient was also seen by cardiology for her paroxysmal atrial fibrillation, and recommended no further workup, patient remains on amiodarone and beta blockers. Today the patient is in normal sinus rhythm. Coumadin remains on hold because of her potential GI bleeding and low hemoglobin requiring 2 units of packed RBCs given yesterday. Labs were reviewed today, BUN is 30 creatinine is 5.30 sodium is 129 potassium is 3.4. I believe the patient is at this point relatively stable enough to be transferred out of the ICU. On 01/21/2017, patient continues to do relatively well, denies any specific complaints except for some pain and vague discomfort in the left thigh but no obvious physical findings noted. Patient denies any shortness of breath, no cough, no wheezing, no chest pain. Patient is about to have dialysis today again. CBC is relatively normal, hemoglobin is holding 9. BUN is 49 creatinine is 8.0. Blood cultures are still negative so far. And urine cultures positive for Linda. On 01/22/2017 patient seen on the medical surgical floor, she is sitting up in the chair, she is not complaining of any dyspnea. She does state it's hard for her to expectorate sputum, because of generalized weakness. she has been afebrile, her oxygenation has been stable on 2 L per nasal cannula with O2 sat from 95-97%. She has maintained normal blood pressures. Yesterday she had hemodialysis with removal of 2.3 L of. chest x-ray from 01/21/2017 shows bilateral airspace disease consistent with CHF and fluid overload. she remains generally weak, she may benefit from short-term subacute rehab discharge. Scheduled for hemodialysis again tomorrow with removal of 3 L of fluid. Objective - Vital Signs Vital signs: Vital Signs Temp 97.4 F L 01/22/17 07:00 Pulse 58 L 01/22/17 08:00 Resp 16 01/22/17 08:00 BP 126/63 01/22/17 07:00 Pulse Ox 95 01/22/17 07:11 Intake & Output 01/21/17 01/22/17 01/22/17 18:59 06:59 18:59 Intake Total 150 Output Total 2302 Balance -2152 Intake: IV 70 0.9 KVO 70 Oral 80 Output: Urine 0 Stool 2 Other 2300 Other: Voiding Method Diaper Diaper Diaper Incontinent Incontinent # Voids 1 0 - Exam Physical Exam: Revealed a 57-year-old female in no distress. HEENT:[Neck is supple.] [No neck masses.] [No thyromegaly.] [No JVD.] Chest: [Diminished breath sounds at the bases, coarse crackles at the bases noted. No rhonchi no wheezes Cardiac Exam: [Normal S1 and S2, no S3 gallop, no murmur.] Abdomen: [Soft, nontender, no megaly, no rebound, no guarding, normal bowel sounds.] Extremities: [No clubbing, no edema, no cyanosis.] Neurological Exam: [No focal neurologic deficit.] Psychiatric: Normal mood and affect, normal mental status examination. Musculoskeletal: Normal range of motion, no muscle tenderness, no weakness. Lymphatics: No lymphadenopathy. - Labs CBC & Chem 7: 01/21/17 05:40 01/21/17 05:40 Labs: Abnormal Lab Results - Last 24 Hours (Table) 01/19/17 01/21/17 01/21/17 Range/Units 08:50 17:30 20:55 POC Glucose (mg/dL) 300 H 190 H (75-99) mg/dL Crossmatch See Detail 01/22/17 01/22/17 01/22/17 Range/Units 06:54 07:18 07:42 POC Glucose (mg/dL) 63 L 52 L 66 L (75-99) mg/dL Crossmatch 01/22/17 01/22/17 Range/Units 08:02 12:17 POC Glucose (mg/dL) 56 L 168 H (75-99) mg/dL Crossmatch Microbiology - Last 24 Hours (Table) 01/18/17 22:00 Blood Culture - Preliminary Blood No Growth after 72 hours 01/18/17 16:32 Blood Culture - Preliminary Blood No Growth after 72 hours 01/15/17 16:11 Blood Culture - Final Blood No Growth after 144 hours Assessment and Plan Plan: 1 altered mentation along with fever. Improving, felt to be related to underlying sepsis. Blood cultures and other cultures remain negative. This is being addressed by Dr. Mares on the case. Remains on antibiotics as already noted. 2 acute febrile illness on that investigation must see discussion above 3 coronary artery disease status post angioplasty of the ramus intermedius branch 4 End stage renal disease on hemodialysis 5 diabetes mellitus with poorly controlled blood sugars currently on insulin drip for blood sugar control the patient had some ketones and mild anion gap metabolic acidosis with an anion gap of 23 6 hypertensive with a poorly controlled blood pressure 7 hyperlipidemia 8 CVA/TIA 9 previous history of GI bleeding 10. peripheral Vascular disease 11 diverticulosis 12 osteoarthritis 13 CHF with a component of fluid overload/pulmonary edema with elevated BNP level. The patient is not having any major respiratory distress and the patient will be having dialysis today. BNP level has been chronically elevated. On today's chest x-ray there is marked improvement in volume status and the pulmonary edema that was discussed earlier as the patient had a 2 L of ultrafiltration. 14 paroxysmal atrial fibrillation, presently under control. Recommendation: Continue present treatment plan, continue dialysis as scheduled, will recommend discharge planning in the next 24-48 hours, patient remains generally weak, may benefit from short-term subacute rehab. we will follow on as-needed basis. I performed a history & physical examination of the patient and discussed their management with my nurse practitioner, Kerri Ramirez. sounds are positive for coarse bilateral lower lobe crackles. I reviewed the nurse practitioner's note and agree with the documented findings and plan of care. Time with Patient: Less than 30
--- NOTE | 2017-01-22 14:09 | P.PN ---
Subjective Progress Note Date: 01/22/17 Mrs. Kaufman is a pleasant -English female with past medical history for coronary artery disease with recent stenting of ramus intermedius July 2016, ESRD on hemodialysis M-W-F, paroxysmal atrial fibrillation on coumadin since 2016, diabetes mellitus, hypertension, dysplipidemia and CVA. She follows regularly with Dr. Calixto in the office. She was brought to the hospital with altered mental status and found to be septic. We have been following with her for an episode of atrial fibrillation with rapid ventricular response while in intensive care. She has been anemic since admission and coumadin has been held until further evaluation as to the source of bleeding. We are seeing her today on the regular medical floor. She is seen sitting up in the chair in no acute distress. She had dialysis yesterday and states she feels better today. She is currently in sinus mechanism on telemetry and hemo-dynamically stable. Blood pressure 126/63 with a heart rate of 58. Hemoglobin 9, platelets 192, potassium 3.4, BUN 49, creatinine 8, magnesium 2.3. Objective - Vital Signs Vital signs: Vital Signs Temp 97.4 F L 01/22/17 07:00 Pulse 58 L 01/22/17 08:00 Resp 16 01/22/17 08:00 BP 126/63 01/22/17 07:00 Pulse Ox 95 01/22/17 07:11 Intake & Output 01/21/17 01/22/17 01/22/17 18:59 06:59 18:59 Intake Total 150 50 Output Total 2302 Balance -215 50 Intake: IV 70 0.9 KVO 70 Oral 80 50 Output: Urine 0 Stool 2 Other 2300 Other: Voiding Method Diaper Diaper Diaper Incontinent Incontinent # Voids 1 0 - Exam GENERAL: Well-appearing, well-nourished and in no acute distress. NECK: Supple without JVD or thyromegaly. LUNGS: Rales appreciated bilateral bases, no wheezing or rhonchi. Respirations are equal and unlabored HEART: Regular rate and rhythm without murmurs, rubs or gallops. S1 and S2 heard. EXTREMITIES: Normal range of motion, no edema. No clubbing or cyanosis. Peripheral pulses intact and strong. - Labs CBC & Chem 7: 01/21/17 05:40 01/21/17 05:40 Labs: Abnormal Lab Results - Last 24 Hours (Table) 01/19/17 01/21/17 01/21/17 Range/Units 08:50 17:30 20:55 POC Glucose (mg/dL) 300 H 190 H (75-99) mg/dL Crossmatch See Detail 01/22/17 01/22/17 01/22/17 Range/Units 06:54 07:18 07:42 POC Glucose (mg/dL) 63 L 52 L 66 L (75-99) mg/dL Crossmatch 01/22/17 01/22/17 Range/Units 08:02 12:17 POC Glucose (mg/dL) 56 L 168 H (75-99) mg/dL Crossmatch Microbiology - Last 24 Hours (Table) 01/18/17 22:00 Blood Culture - Preliminary Blood No Growth after 72 hours 01/18/17 16:32 Blood Culture - Preliminary Blood No Growth after 72 hours 01/15/17 16:11 Blood Culture - Final Blood No Growth after 144 hours Assessment and Plan Assessment: ASSESSMENT 1. Paroxysmal atrial fibrillation, on amiodarone and metoprolol. Coumadin being held for GI bleed. Currently maintaining sinus mechanism. 2. History of CAD, recent stenting July 2016 ramus intermedius. 3. Essential hypertension 4. Hyperlipidemia 5. End-stage renal disease on hemodialysis 6. Diabetes mellitus 7. History of CVA 8. Chronic systolic heart failure with EF 40-45% PLAN From cardiology perspective Ms. Kaufman is stable at this point. She is maintained on metoprolol and amiodarone for rate control. She has converted to a sinus mechanism. Coumadin continues to be on hold secondary to possible GI bleed. Hemoglobin is stable and there has been no more signs of active bleeding per the patient. Coumadin should be resumed as soon as possible to protect for thromoembolic event. Nurse Practitioner note has been reviewed, I agree with a documented findings and plan of care. Patient was seen and examined.
[2017-01-22 17:21] LABS: Glucose,Whole Blood 196 mg/dL (75-99)
[2017-01-22] MEDS: MEROPENEM 1 GM in SODIUM CHLORIDE 0.9% 100 ML IVPB SCH (17:59)
[2017-01-22 20:41] LABS: Glucose,Whole Blood 199 mg/dL (75-99)
[2017-01-22] MEDS: ATORVASTATIN 40 MG TAB PO SCH (21:28)
[2017-01-22] MEDS: INSULIN DETEMIR 100 UNIT/ML 10 ML VIAL SQ SCH (21:29)
--- NOTE | 2017-01-22 23:26 | P.PN ---
Subjective Progress Note Date: 01/22/17 Principal diagnosis: Sepsis 57-year-old Afro-[place] female presents to the emergency center because there was difficulties with her mental status. The family relate that she developed confusion and was quite lethargic. She has a long-standing history of end- stage renal disease on hemodialysis through the local dialysis center in our community. When she was at her last dialysis center they were concerned that she had evidence of sepsis and was given a dose of vancomycin. Other notation of developing some diarrhea she was feeling relatively well until the onset of the significant altered mentation as well as a high-grade fever. Consult her family brought her to the emergency center where she was admitted at the present time with a temperature of 100 medical floor but had worsening of her status developed evidence of diabetic ketoacidosis was transferred to the intensive care unit. Because of ongoing sepsis infectious diseases consultation was requested. The patient currently has been seen by the dialysis nurse dialysis has started. And quite surprising with the start of dialysis she's not feeling considerably better. She was awake alert oriented to person and place. She remembers the dialysis nurses name without difficulty. She was able to relate the current history. Nursing staff relates that a few hours ago she was unable to give any history at all. At this time she just feels poorly with a high-grade fever. She has some generalized body ache. Her appetite is been poor. She has some nausea without emesis. She's had a a headache and it's not severe at this point in time. She 's had no rigor. If the time of evaluation today she is upright relates that she'd like to have some fruit. She is able to relate that sheis at [facility]. She is in [facility]. It is 2016. She also knows to her family members are. Objective - Vital Signs Vital signs: Vital Signs Temp 97.1 F L 01/22/17 18:55 Pulse 75 01/22/17 18:55 Resp 16 01/22/17 18:55 BP 102/43 01/22/17 18:55 Pulse Ox 91 L 01/22/17 18:55 Intake & Output 01/22/17 01/22/17 01/23/17 06:59 18:59 06:59 Intake Total 50 Output Total 0 Balance 50 Weight 70 kg Intake: Oral 50 Output: Urine 0 Other: Voiding Method Diaper Diaper Incontinent Incontinent # Voids 0 1 # Bowel Movements 1 - Exam Pleasant 57-year-old woman who is quite comfortable at this time. She's feeling better now that her fevers resolved. The dutch odor of her ketosis has resolved. HEENT: Anicteric conjunctiva are pink and moist nasal mucosa grossly intact without significant lesions, there is no thrush. Evidence of bilateral cataract extraction and lens implantation Neck: The neck is supple without significant lymphadenopathy or thyromegaly. Lungs: They're symmetrical air entry, there is evidence of only few basilar crackles. No bronchial sounds are heard. No dullness or egophony. Heart: Regular rate and rhythm with an audible S1-S2, no S3 soft S4 and the hum of the fistula is easily heard. There is no significant murmur click or rub, PMI was nondisplaced. Abdomen: Positive bowel sounds soft and nontender without palpable masses or organomegaly. There was no guarding or rebound. Extremities: The upper extremities have excellent pulses they are symmetric, no significant petechiae or telangiectasia. No splinter hemorrhages were noted. The lower extremities are free from significant edema. The peripheral pulses were 2+ and symmetric. Neuro: Patient is now much more awake and alert. oriented to person and place and year. Appears to be have somewhat of a waxing status in that she does very well around the time of dialysis. The fevers have resolved The patient is much improved today. - Labs CBC & Chem 7: 01/21/17 05:40 01/21/17 05:40 Labs: Abnormal Lab Results - Last 24 Hours (Table) 01/22/17 01/22/17 01/22/17 Range/Units 06:54 07:18 07:42 POC Glucose (mg/dL) 63 L 52 L 66 L (75-99) mg/dL 01/22/17 01/22/17 01/22/17 Range/Units 08:02 12:17 17:10 POC Glucose (mg/dL) 56 L 168 H 196 H (75-99) mg/dL 01/22/17 Range/Units 20:39 POC Glucose (mg/dL) 199 H (75-99) mg/dL Microbiology - Last 24 Hours (Table) 01/18/17 16:32 Blood Culture - Preliminary Blood No Growth after 96 hours 01/18/17 22:00 Blood Culture - Preliminary Blood No Growth after 72 hours Laboratory Results WBC 5.7 k/uL (3.8-10.6) 01/21/17 05:40 RBC 3.04 m/uL (3.80-5.40) L 01/21/17 05:40 Hgb 9.0 gm/dL (11.4-16.0) L 01/21/17 05:40 Hct 29.1 % (34.0-46.0) L 01/21/17 05:40 MCV 95.8 fL (80.0-100.0) 01/21/17 05:40 MCH 29.5 pg (25.0-35.0) 01/21/17 05:40 MCHC 30.8 g/dL (31.0-37.0) L 01/21/17 05:40 RDW 18.6 % (11.5-15.5) H 01/21/17 05:40 Plt Count 192 k/uL (150-450) 01/21/17 05:40 Neutrophils % 89 % 01/20/17 03:55 Neutrophils % (Manual) 69 % 01/21/17 05:40 Band Neutrophils % 11 % 01/21/17 05:40 Lymphocytes % 4 % 01/20/17 03:55 Lymphocytes % (Manual) 12 % 01/21/17 05:40 Monocytes % 3 % 01/20/17 03:55 Monocytes % (Manual) 2 % 01/21/17 05:40 Eosinophils % 2 % 01/20/17 03:55 Eosinophils % (Manual) 6 % 01/21/17 05:40 Basophils % 0 % 01/20/17 03:55 Neutrophils # 4.3 k/uL (1.3-7.7) 01/20/17 03:55 Neutrophils # (Manual) 4.50 k/uL (1.3-7.7) 01/21/17 05:40 Lymphocytes # 0.2 k/uL (1.0-4.8) L 01/20/17 03:55 Lymphocytes # (Manual) 0.68 k/uL (1.0-4.8) L 01/21/17 05:40 Monocytes # 0.1 k/uL (0-1.0) 01/20/17 03:55 Monocytes # (Manual) 0.11 k/uL (0-1.0) 01/21/17 05:40 Eosinophils # 0.1 k/uL (0-0.7) 01/20/17 03:55 Eosinophils # (Manual) 0.34 k/uL (0-0.7) 01/21/17 05:40 Basophils # 0.0 k/uL (0-0.2) 01/20/17 03:55 Nucleated RBCs 0 /100 WBC (0-0) 01/21/17 05:40 Manual Slide Review Performed 01/21/17 05:40 Polychromasia Present 01/18/17 05:32 Hypochromasia Slight 01/21/17 05:40 Poikilocytosis Moderate 01/21/17 05:40 Poikilocytosis (manual Present 01/18/17 05:32 Anisocytosis Slight 01/21/17 05:40 Macrocytosis Slight 01/21/17 05:40 PT 10.7 sec (9.0-12.0) 01/19/17 04:35 INR 1.1 (<1.2) 01/19/17 04:35 APTT 23.0 sec (22.0-30.0) 01/15/17 16:11 Sample Site r rad 01/16/17 16:17 ABG pH 7.49 (7.35-7.45) H 01/16/17 16:17 ABG pCO2 29 mmHg (35-45) L 01/16/17 16:17 ABG pO2 79 mmHg (83-108) L 01/16/17 16:17 ABG HCO3 22 mmol/L (21-25) 01/16/17 16:17 ABG Total CO2 23 mmol/L (19-24) 01/16/17 16:17 ABG O2 Saturation 96.8 % (94-97) 01/16/17 16:17 ABG Base Excess -0.7 mmol/L 01/16/17 16:17 FiO2 45 % 01/16/17 16:17 Sodium 132 mmol/L (137-145) L 01/21/17 05:40 Potassium 3.4 mmol/L (3.5-5.1) L 01/21/17 05:40 Chloride 95 mmol/L (98-107) L 01/21/17 05:40 Carbon Dioxide 24 mmol/L (22-30) 01/21/17 05:40 Anion Gap 13 mmol/L 01/21/17 05:40 BUN 49 mg/dL (7-17) H 01/21/17 05:40 Creatinine 8.00 mg/dL (0.52-1.04) H* 01/21/17 05:40 Est GFR (MDRD) Af Amer 6 (>60 ml/min/1.73 sqM) 01/21/17 05:40 Est GFR (MDRD) Non-Af 5 (>60 ml/min/1.73 sqM) 01/21/17 05:40 Glucose 179 mg/dL (74-99) H 01/21/17 05:40 POC Glucose (mg/dL) 199 mg/dL (75-99) H 01/22/17 20:39 POC Glu [place] Tapper Helper ID Tessie Herrera 01/22/17 20:[address] Glu mg/dL 183 01/16/17 22:20 Hemoglobin A1c 8.0 % (4.0-6.0) H 01/16/17 22:20 Plasma Lactic Acid Tomas 1.7 mmol/L (0.7-2.0) 01/17/17 07:48 Calcium 8.2 mg/dL (8.4-10.2) L 01/21/17 05:40 Phosphorus 4.3 mg/dL (2.5-4.5) 01/21/17 05:40 Magnesium 2.3 mg/dL (1.6-2.3) 01/21/17 05:40 Iron 27 ug/dL (50-170) L 01/17/17 05:37 TIBC 191 ug/dL (228-460) L 01/17/17 05:37 Iron Saturation 14.14 (12.00-45.00) 01/17/17 05:37 Ferritin 9932.8 ng/mL (10.0-291.0) H 01/17/17 05:37 Total Bilirubin 0.5 mg/dL (0.2-1.3) 01/15/17 16:11 AST 42 U/L (14-36) H 01/15/17 16:11 ALT 37 U/L (9-52) 01/15/17 16:11 Alkaline Phosphatase 98 U/L (38-126) 01/15/17 16:11 Ammonia <9 umol/L (<30) 01/16/17 22:20 Total Creatine Kinase 76 U/L (30-135) 01/15/17 16:11 CK-MB (CK-2) 0.8 ng/mL (0.0-2.4) 01/15/17 16:11 CK-MB (CK-2) Rel Index 1.1 01/15/17 16:11 Troponin I 0.182 ng/mL (0.000-0.034) H* 01/16/17 03:13 NT-Pro-B Natriuret Pep 22954 pg/mL 01/16/17 08:00 Total Protein 6.5 g/dL (6.3-8.2) 01/15/17 16:11 Albumin 3.7 g/dL (3.5-5.0) 01/15/17 16:11 Urine Color Yellow 01/18/17 14:15 Urine Appearance Cloudy (Clear) H 01/18/17 14:15 Urine pH 7.0 (5.0-8.0) 01/18/17 14:15 Ur Specific [place] 1.014 (1.001-1.035) 01/18/17 14:15 Urine Protein 3+ (Negative) H 01/18/17 14:15 Urine Glucose (UA) 3+ (Negative) H 01/18/17 14:15 Urine Ketones Negative (Negative) 01/18/17 14:15 Urine Blood Moderate (Negative) H 01/18/17 14:15 Urine Nitrite Negative (Negative) 01/18/17 14:15 Urine Bilirubin Negative (Negative) 01/18/17 14:15 Urine Urobilinogen <2.0 mg/dL (<2.0) 01/18/17 14:15 Ur Leukocyte Esterase Moderate (Negative) H 01/18/17 14:15 Urine RBC 47 /hpf (0-5) H 01/18/17 14:15 Urine WBC 124 /hpf (0-5) H 01/18/17 14:15 Ur Squamous Epith Cells 95 /hpf (0-4) H 01/18/17 14:15 Urine Bacteria Few /hpf (None) H 01/18/17 14:15 Hyaline Casts 108 /lpf (0-2) H 01/18/17 14:15 Urine Mucus Rare /hpf (None) H 01/18/17 14:15 Urine Yeast (Budding) Few /hpf (None) H 01/18/17 14:15 Stool Occult Blood Positive (Negative) H 01/19/17 08:50 Random Vancomycin 20.9 ug/mL 01/21/17 05:40 Acetone, Qual Positive (Negative) 01/16/17 08:00 C. difficile (EIA) Intrp Negative (Negative) 01/19/17 05:00 Influenza Type A RNA Not Detected (Not Detectd) 01/15/17 15:50 Influenza Type B (PCR) Not Detected (Not Detectd) 01/15/17 15:50 Blood Type A Positive 01/19/17 08:50 Blood Type Recheck No 01/19/17 08:50 Antibody Screen POSITIVE 01/19/17 08:50 Antibody Identification Anti-K 01/19/17 08:50 Direct Antiglob Test Negative 01/19/17 08:50 Crossmatch See Detail 01/19/17 08:50 Spec Expiration Date 01/22/2017 64501/19/17 08:50 Microbiology 01/18/17 16:32 Blood Blood Culture - Preliminary No Growth after 96 hours 01/18/17 22:00 Blood Blood Culture - Preliminary No Growth after 72 hours 01/15/17 16:11 Blood Blood Culture - Final No Growth after 144 hours 01/18/17 14:15 Urine,Catheterized Urine Culture - Final Linda sp,not albicans/galbr Assessment and Plan (1) Altered mental status Current Visit: Yes Status: Acute Code(s): R41.82 - ALTERED MENTAL STATUS, UNSPECIFIED SNOMED Code(s): 848017915 (2) Sepsis Narrative/Plan: 57-year-old female presents to emergency center with her family because of some altered mentation. At presentation is evidence of fever and concerns for sepsis. There is some data that is provided that at the dialysis center she had evidence of a positive blood culture. Intravenous antibiotic therapy was initiated the dialysis center with vancomycin. She's now presented to Hospital. There is evidence of worsening of her status. She developed diabetic ketoacidosis which further worsened her metabolic state. He also worsened her neurological state. Her DKA is now under much better control and insulin drip is newly turned off. The gap is closed. And she started to feel considerably better. However this ongoing concerns underlying sepsis. With her dialysis status vancomycin is appropriate however we'll alter ceftriaxone to ceftazidime ensure that were covering for Pseudomonas which is a more common pathogen in this population. Follow-up cultures are in process. Her DKA is being actively treated insulin drip is being currently tapered at this time. Was having some improvement but again is febrile again. Blood and urine cultures are process. Negative so far. At this time continue with vancomycin as well as ceftaxidime for coverage of staph and strep and pseudomonas. It does appear her significant ketosis is resolved. Nephrology is following and will address her significant anemia. Patient had some further fever last evening. Antimicrobial therapy was altered from Fortaz to meropenem. Repeat cultures were requested. Urine cultures in process. Prior blood cultures are negative. Mentation remains improved especially after hemodialysis. Current Visit: Yes Status: Acute Code(s): A41.9 - SEPSIS, UNSPECIFIED ORGANISM SNOMED Code(s): 29941902 (3) DKA (diabetic ketoacidoses) Current Visit: No Status: Acute Code(s): E13.10 - OTH DIABETES MELLITUS WITH KETOACIDOSIS WITHOUT COMA SNOMED Code(s): 517912984 (4) Chronic kidney disease with end stage renal failure on dialysis Current Visit: Yes Status: Acute Code(s): N18.6 - END STAGE RENAL DISEASE; Z99.2 - DEPENDENCE ON RENAL DIALYSIS SNOMED Code(s): 850555675
[2017-01-23 02:28] LABS: Glucose,Whole Blood 227 mg/dL (75-99)
[2017-01-23 07:25] LABS: Glucose,Whole Blood 204 mg/dL (75-99)
[2017-01-23] MEDS: INSULIN ASPART 100 UNIT/ML 1 ML 10 ML VIAL SQ SCH ×4 (08:19→21:08)
[2017-01-23] MEDS: SEVELAMER 800 MG TAB PO SCH ×3 (08:23→17:42)
[2017-01-23] MEDS: ASPIRIN 81 MG PO SCH (08:24)
[2017-01-23] MEDS: CLOPIDOGREL 75 MG TAB PO SCH (08:24)
[2017-01-23] MEDS: POTASSIUM CHLORIDE ORAL LIQUID 40 MEQ/30 ML CUP PO SCH (08:25)
[2017-01-23] MEDS: FOLIC ACID-VIT B COMPLEX-VIT C 1 CAP PO SCH (08:25)
[2017-01-23] MEDS: GABAPENTIN 100 MG CAP PO SCH ×3 (08:25→20:30)
[2017-01-23] MEDS: MIDODRINE 5 MG TAB PO SCH (08:26)
[2017-01-23] MEDS: amLODIPine 5 MG TAB PO SCH (08:27)
[2017-01-23] MEDS: METOPROLOL SUCCINATE (ER) 50 MG TAB.ER.24H PO SCH (08:27)
[2017-01-23] MEDS: AMIODARONE 200 MG TAB PO SCH ×2 (08:28→20:30)
[2017-01-23 08:53] LABS: Anisocytosis Slight; Basophils # (A) 0.1 k/uL (0-0.2); Basophils % (A) 1 %; CH 29.6; CHCM 30.8; Eosinophils # (A) 0.3 k/uL (0-0.7); Eosinophils % (A) 5 %; HDW 3.56; HGB 9.8 gm/dL (11.4-16.0); Hypochromasia Marked; Luc # (Auto) 0.28; Luc % (Auto) 4; Lymphocytes # (A) 0.4 k/uL (1.0-4.8); Lymphocytes % (A) 7 %; MCH 29.8 pg (25.0-35.0); MCHC 30.8 g/dL (31.0-37.0); MCV 96.7 fL (80.0-100.0); Macrocytosis Slight; Mean Platelet Volume 8.2; Monocytes # (A) 0.2 k/uL (0-1.0); Monocytes % (A) 3 %; Neutrophils # (A) 5.3 k/uL (1.3-7.7); Neutrophils % (A) 80 %; Poikilocytosis Slight; RDW 19.3 % (11.5-15.5); WBC 6.7 k/uL (3.8-10.6); WBC (Perox) 6.81
--- NOTE | 2017-01-23 09:00 | P.PN ---
Subjective Progress Note Date: 01/23/17 Mrs. Kaufmna is a pleasant -[place] female with past medical history for coronary artery disease with recent stenting of ramus intermedius July 2016, ESRD on hemodialysis M-W-, paroxysmal atrial fibrillation on coumadin since 2016, diabetes mellitus, hypertension, dysplipidemia and CVA. She follows regularly with Dr. Calixto in the office. She was brought to the hospital with altered mental status and found to be septic. We have been following with her for an episode of atrial fibrillation with rapid ventricular response while in intensive care. She has been anemic since admission and coumadin has been held until further evaluation as to the source of bleeding. We are seeing her today on the regular medical floor. She is seen sitting up in bed eating breakfast in no acute distress. She had dialysis yesterday and is scheduled for another treatment today. She continues to be in sinus mechanism on telemetry. She denies any further episodes of rectal bleeding. Hgb 9.8 up from 9.0 yesterday, electrolytes unavailable at this time. Blood pressure 115/48 with heart rate of 78. Objective - Vital Signs Vital signs: Vital Signs Temp 99.0 F 01/23/17 07:00 Pulse 78 01/23/17 07:00 Resp 20 01/23/17 07:00 BP 115/48 01/23/17 07:00 Pulse Ox 88 L 01/23/17 07:40 Intake & Output 01/22/17 01/23/17 01/23/17 18:59 06:59 18:59 Intake Total 50 Output Total 0 Balance 50 Weight 70 kg Intake: Oral 50 Output: Urine 0 Other: Voiding Method Diaper Diaper Incontinent Incontinent # Voids 1 0 # Bowel Movements 1 0 - Exam GENERAL: Well-appearing, well-nourished and in no acute distress. NECK: Supple without JVD or thyromegaly. LUNGS: Faint expiratory wheeze appreciated with deep inspiration. No rales or rhonchi. Respirations are equal and unlabored HEART: Regular rate and rhythm without murmurs, rubs or gallops. S1 and S2 heard. EXTREMITIES: Normal range of motion, no edema. No clubbing or cyanosis. Peripheral pulses intact and strong. - Labs CBC & Chem 7: 01/21/17 05:40 01/21/17 05:40 Labs: Abnormal Lab Results - Last 24 Hours (Table) 01/22/17 01/22/17 01/22/17 Range/Units 12:17 17:10 20:39 POC Glucose (mg/dL) 168 H 196 H 199 H (75-99) mg/dL 01/23/17 01/23/17 Range/Units 02:27 07:08 POC Glucose (mg/dL) 227 H 204 H (75-99) mg/dL Microbiology - Last 24 Hours (Table) 01/18/17 22:00 Blood Culture - Preliminary Blood No Growth after 96 hours 01/18/17 16:32 Blood Culture - Preliminary Blood No Growth after 96 hours Assessment and Plan Assessment: ASSESSMENT 1. Paroxysmal atrial fibrillation, on amiodarone and metoprolol. Coumadin being held for GI bleed. Currently maintaining sinus mechanism. 2. History of CAD, recent stenting July 2016 ramus intermedius. 3. Essential hypertension 4. Hyperlipidemia 5. End-stage renal disease on hemodialysis 6. Diabetes mellitus 7. History of CVA 8. Chronic systolic heart failure with EF 40-45% PLAN From cardiology perspective Ms. Kaufman is stable at this point. Amiodarone can be decreased to 200 mg PO BID and that is what she should go home on to be tapered per Dr. Calixto as an outpatient. Coumadin continues to be on hold secondary to possible GI bleed. Hemoglobin is stable and there has been no more signs of active bleeding per the patient. Coumadin should be resumed as soon as possible to protect for thromoembolic event per primary or GI. We will continue to see her as needed, please feel free to call with any further questions of concerns. Nurse Practitioner note has been reviewed, I agree with a documented findings and plan of care. Patient was seen and examined.
[2017-01-23 09:10] LABS: Calcium 8.6 mg/dL (8.4-10.2); Potassium 4.7 mmol/L (3.5-5.1)
[2017-01-23 09:36] VITALS: BMI 26.4
--- NOTE | 2017-01-23 10:44 | P.PN ---
Subjective Progress Note Date: 01/23/17 Principal diagnosis: altered mentation, fever possibly related to underlying sepsis. A 57-year-old female patient who presented to the hospital because of altered mental status. The patient apparently was getting more lethargic and sleepy and somewhat confused. The patient was also having fever on an outpatient basis. Blood Cultures have been sent and the dialysis site and apparently the blood cultures were told to be positive and for that reason the patient was sent into the hospital. The patient was given a dose of vancomycin and the patient's random vancomycin level is at 32. The patient has some limited diarrhea which has subsided. No nausea. No vomiting. No abdominal pain. No chest pain. She has an AV Ciaran the left upper extremity for dialysis. No cellulitis. No headaches. No neck stiffness. At the time of my evaluation, the patient was afebrile and her mentation was already improving. She opened her eyes patient moved all 4 extremities. She was able to recognize me as of taking care of this patient the past 4 issues related to her incisional disease and fluid overload. This is a very pleasant -[place] female patient with known history of end-stage renal disease on hemodialysis 3 times a week, Wednesdays and Fridays via a left upper extremity AV graft. The patient has been compliant to her treatment. The patient is known to have coronary artery disease. The patient has undergone previous angioplasty of the ramus intermedius artery artery in July 2016. He has been hospitalized in the past to the intensive care unit for hypertensive emergency and fluid overload. She was treated appropriately without any complications. She has a preserved LV function with an ejection fraction of 55%. She also has a moderate degree of mitral regurgitation. Cardiac catheterization was done during her latest admission and she has smaller vessel coronary artery disease. Not abnormal for any intervention. Note that she had a similar presentation in 08/01/2016 when she came in with pulmonary edema and fluid overload and hypertensive urgency with systolic blood pressure running in the 180-190 range. At that time the patient was placed on nitroglycerin drip which improved her blood pressure control. Subsequently she had [id number] dialysis with ultrafiltration and the pulmonary edema recovered. She has a preserved LV function based on previous echocardiograms. Please refer also to the most recent cardiac catheterization was done in July 2016. On 01/18/2017 the patient is being seen in follow-up. As mentioned, the patient got transferred to the intensive care unit. She was having fever. She was in mild DKA. She was having altered mentation and fever. She got dialyzed yesterday and dialysis was successful and the patient she had 2 L of fluid taken off. This morning she is awake and alert and she is following commands and answering questions appropriately. She is having fever and her T-max was 11.7. She was seen by infectious disease yesterday. Rocephin was discontinued and the patient was given a dose of Fortaz. Vancomycin random level today is at 22. The patient is still having negative blood cultures. No nausea no vomiting no abdominal pain. She was a straight cathed yesterday and would awaiting for the urine analysis and urine culture results also. No headache. No seizure activity. She is on an insulin drip at 0.5 units an hour and her blood sugars under better control for now. The chest x-ray from today is showing marked improvement in the pulmonary edema and there is no consolidation or airspace disease. On 01/19/2017, patient seems to be doing a bit better, she is presently receiving hemodialysis, remains on antibiotics as per Dr. Mares, patient is now on Merrem and vancomycin. Her hemoglobin is 6.1, and the patient will likely receive a unit of packed RBCs after dialysis today. Blood cultures and urine cultures remain pending at this point. On 01/20/2017, patient seems to be doing much better, breathing easier, chest x- ray is showing improvement in fluid overload, received hemodialysis yesterday and 2 units of packed RBCs for hemoglobin of 6.1, today's hemoglobin is 8.6. Patient was also seen by cardiology for her paroxysmal atrial fibrillation, and recommended no further workup, patient remains on amiodarone and beta blockers. Today the patient is in normal sinus rhythm. Coumadin remains on hold because of her potential GI bleeding and low hemoglobin requiring 2 units of packed RBCs given yesterday. Labs were reviewed today, BUN is 30 creatinine is 5.30 sodium is 129 potassium is 3.4. I believe the patient is at this point relatively stable enough to be transferred out of the ICU. On 01/21/2017, patient continues to do relatively well, denies any specific complaints except for some pain and vague discomfort in the left thigh but no obvious physical findings noted. Patient denies any shortness of breath, no cough, no wheezing, no chest pain. Patient is about to have dialysis today again. CBC is relatively normal, hemoglobin is holding 9. BUN is 49 creatinine is 8.0. Blood cultures are still negative so far. And urine cultures positive for Linda. On 01/22/2017 patient seen on the medical surgical floor, she is sitting up in the chair, she is not complaining of any dyspnea. She does state it's hard for her to expectorate sputum, because of generalized weakness. she has been afebrile, her oxygenation has been stable on 2 L per nasal cannula with O2 sat from 95-97%. She has maintained normal blood pressures. Yesterday she had hemodialysis with removal of 2.3 L of. chest x-ray from 01/21/2017 shows bilateral airspace disease consistent with CHF and fluid overload. she remains generally weak, she may benefit from short-term subacute rehab discharge. Scheduled for hemodialysis again tomorrow with removal of 3 L of fluid. On 01/23/2017 patient is seen resting in bed, in no acute distress. Noted to be a little forgetful. Her lung sounds positive for bibasilar crackles, she still desaturates on room air to 80-88%. Continues on 2 L per nasal cannula with O2 sat at 93%, no significant sputum production. She is awaiting to have hemodialysis today. Social work has been consult for rehab placement, patient remains generally weak, unable to ambulate. Objective - Vital Signs Vital signs: Vital Signs Temp 99.0 F 01/23/17 07:00 Pulse 78 01/23/17 07:00 Resp 20 01/23/17 07:00 BP 115/48 01/23/17 07:00 Pulse Ox 88 L 01/23/17 07:40 Intake & Output 01/22/17 01/23/17 01/23/17 18:59 06:59 18:59 Intake Total 50 Output Total 0 Balance 50 Weight 70 kg 70 kg Intake: Oral 50 Output: Urine 0 Other: Voiding Method Diaper Diaper Incontinent Incontinent # Voids 1 0 # Bowel Movements 1 0 - Exam Physical Exam: Revealed a 57-year-old female in no distress. HEENT:[Neck is supple.] [No neck masses.] [No thyromegaly.] [No JVD.] Chest: [Diminished breath sounds at the bases, bibasilar crackles noted. No rhonchi no wheezes Cardiac Exam: [Normal S1 and S2, no S3 gallop, no murmur.] Abdomen: [Soft, nontender, no megaly, no rebound, no guarding, normal bowel sounds.] Extremities: [No clubbing, no edema, no cyanosis.] Neurological Exam: [No focal neurologic deficit.] Psychiatric: Normal mood and affect, normal mental status examination. Musculoskeletal: Normal range of motion, no muscle tenderness, no weakness. Lymphatics: No lymphadenopathy. - Labs CBC & Chem 7: 01/23/17 07:56 01/23/17 07:56 Labs: Abnormal Lab Results - Last 24 Hours (Table) 01/22/17 01/22/17 01/22/17 Range/Units 12:17 17:10 20:39 RBC (3.80-5.40) m/uL Hgb (11.4-16.0) gm/dL Hct (34.0-46.0) % MCHC (31.0-37.0) g/dL RDW (11.5-15.5) % Lymphocytes # (1.0-4.8) k/uL Sodium (137-145) mmol/L BUN (7-17) mg/dL Creatinine (0.52-1.04) mg/dL Glucose (74-99) mg/dL POC Glucose (mg/dL) 168 H 196 H 199 H (75-99) mg/dL 01/23/17 01/23/17 01/23/17 Range/Units 02:27 07:08 07:56 RBC (3.80-5.40) m/uL Hgb (11.4-16.0) gm/dL Hct (34.0-46.0) % MCHC (31.0-37.0) g/dL RDW (11.5-15.5) % Lymphocytes # (1.0-4.8) k/uL Sodium 136 L (137-145) mmol/L BUN 46 H (7-17) mg/dL Creatinine 7.90 H* (0.52-1.04) mg/dL Glucose 215 H (74-99) mg/dL POC Glucose (mg/dL) 227 H 204 H (75-99) mg/dL 01/23/17 Range/Units 07:56 RBC 3.30 L (3.80-5.40) m/uL Hgb 9.8 L (11.4-16.0) gm/dL Hct 32.0 L (34.0-46.0) % MCHC 30.8 L (31.0-37.0) g/dL RDW 19.3 H (11.5-15.5) % Lymphocytes # 0.4 L (1.0-4.8) k/uL Sodium (137-145) mmol/L BUN (7-17) mg/dL Creatinine (0.52-1.04) mg/dL Glucose (74-99) mg/dL POC Glucose (mg/dL) (75-99) mg/dL Microbiology - Last 24 Hours (Table) 01/18/17 22:00 Blood Culture - Preliminary Blood No Growth after 96 hours 01/18/17 16:32 Blood Culture - Preliminary Blood No Growth after 96 hours Assessment and Plan Plan: 1 altered mentation along with fever. Improving, felt to be related to underlying sepsis. Blood cultures and other cultures remain negative. This is being addressed by Dr. Mares on the case. Remains on antibiotics as already noted. 2 acute febrile illness on that investigation must see discussion above 3 coronary artery disease status post angioplasty of the ramus intermedius branch 4 End stage renal disease on hemodialysis 5 diabetes mellitus with poorly controlled blood sugars currently on insulin drip for blood sugar control the patient had some ketones and mild anion gap metabolic acidosis with an anion gap of 23 6 hypertensive with a poorly controlled blood pressure 7 hyperlipidemia 8 CVA/TIA 9 previous history of GI bleeding 10. peripheral Vascular disease 11 diverticulosis 12 osteoarthritis 13 CHF with a component of fluid overload/pulmonary edema with elevated BNP level. The patient is not having any major respiratory distress and the patient will be having dialysis today. BNP level has been chronically elevated. On today's chest x-ray there is marked improvement in volume status and the pulmonary edema that was discussed earlier as the patient had a 2 L of ultrafiltration. 14 paroxysmal atrial fibrillation, presently under control. Recommendation: Continue present treatment plan, continue dialysis as scheduled, no acute events overnight, patient remains generally weak, unable to ambulate. For that reason licensed clinical social worker has been consult at and discharge planning is in place for rehab placement. I performed a history & physical examination of the patient and discussed their management with my nurse practitioner, Kerri Ramirez. sounds are positive for coarse bilateral lower lobe crackles. I reviewed the nurse practitioner's note and agree with the documented findings and plan of care. Time with Patient: Less than 30
--- NOTE | 2017-01-23 12:36 | PN ---
PROGRESS NOTE Patient is seen for followup for end-stage renal disease. She is currently sitting up, looks much better than 1 week ago. Patient is alert and oriented x3. She has been eating. She is complaining of left earache. PHYSICAL EXAMINATION: Blood pressure is 115/48, heart rate 78 per minute. Patient is afebrile. Examination of the heart S1, S2. Examination of the lungs, bilateral breath sounds are heard. Abdomen is soft, nontender. Examination of the lower extremities shows no evidence of edema. RECEIVING WORKER exam is grossly intact. LABS: Hemoglobin 9.8, sodium 136, potassium 4.7. ASSESSMENT: 1. End-stage renal disease, on hemodialysis on a Thursday, Thursday, Thursday schedule. Patient will be dialyzed today. She will have another treatment tomorrow, mainly for ultrafiltration. 2. Fluid overload, currently improved. 3. Fever, etiology unclear. All cultures are negative and serologies are negative for a major viral infection including influenza. Patient is improved. She is currently afebrile. 4. Atrial fibrillation with controlled ventricular response, maintained on amiodarone. 5. Anemia with a gastrointestinal bleed as well as anemia of chronic disease, currently off of anticoagulation. PLAN: Hemodialysis today and will schedule patient again for ultrafiltration tomorrow. MMODL / IJN: [id number] /
[2017-01-23 13:00] LABS: Glucose,Whole Blood 136 mg/dL (75-99)
[2017-01-23] MEDS ORDERED: GELATIN SPONGE,ABSORB (SMALL) 1 EACH SPONGE ONE (14:30)
[2017-01-23] MEDS ORDERED: HEPARIN SODIUM,PORCINE 5,000 UNIT/ML 1 ML VIAL ONE (14:30)
[2017-01-23] MEDS ORDERED: VANCOMYCIN 1,000 MG in SODIUM CHLORIDE 0.9% 250 ML IVPB ONE (16:00)
--- NOTE | 2017-01-23 16:37 | P.PN ---
Subjective Progress Note Date: 01/22/17 Progress note being dictated for Dr. Black. Interval history: Patient is a 56-year-old female with a past medical history of ESRD on hemodialysis MWF via AV graft, hypertension, diabetes type 2 history of coronary disease and recently diagnosed atrial fibrillation and was started on anticoagulation with Coumadin presented to the ER due to altered mental status. Patient had hemodialysis last night. Patient was supposed to be confused at the time. Patient woke up next morning with more confusion and also noted to have fevers. Patient's family member says that blood culture set dialysis Center showed infection and patient was sent to Hospital. Otherwise patient seems to be lethargic and confused but oriented 2. Denied any complaints of chest pain or short of breath. No nausea or nausea vomiting or diarrhea. Patient had one episode of diarrhea and C. diff was sent. Today afternoon patient became more confused and shortness of breath requiring oxygen. Patient was placed on Ventimask and repeat labs were attempted but could not get IV access. Patient was placed on telemetry monitoring and ABGs will be obtained. Patient had hemodialysis today. Chest x-ray on admission showed fluid overload BNP greater than 80,000 on admission. Patient was recently admitted to the hospital with a GI bleed/darker stools. Patient was started back on anti-coagulation after a week and current hemoglobin is 7.9. Otherwise patient does not have any fever or chills now . Blood cultures were sent. No leukocytosis noted. Patient was found to have hyperglycemia and was started on insulin drip. Her gap 23 and bicarbonate 19. Acetone positive. 01/17/2017 Patient seems to be confused on and off. Patient currently is to be febrile today. Blood cultures are negative so far. Patient denied any worsening short of breath. No complaints of chest pain. No diarrhea no abdominal pain. Anion gap closed. Insulin drip has been discontinued. Patient will be transferred to MICU due to patient condition of fever and altered mental status. 01/18/2017 Patient was improving clinically decreased orientation but today morning patient became febrile again. Blood cultures is negative so far. Patient was on vancomycin and ceftazidime. Ceftazidime was changed to meropenem as widely recommendations. Patient is still having mild DKA. Patient did have hemodialysis today with 2 l ultrafiltration. Chest x-ray showed improvement in CHF . Patient denied any short of breath. No complaints of chest pain. No nausea vomiting or abdominal pain. 01/19/2017 Patient is more awake and oriented today. Fever improved. Continue on antibiotics in the form of vancomycin and meropenem. ID and pulmonary is on board. Patient denied any complaints of chest pain or short of breath. No nausea vomiting. Hemoglobin found to be 6.1 and will be getting 1 unit PRBC during hemodialysis today. 01/20/2017 Patient is more awake and oriented today. Patient did have hemodialysis. Urine culture showed Linda species. Chest x-ray showed improved air space disease. Patient did have low-grade fever otherwise no complaints of chest pain or short of breath. No nausea vomiting or abdominal pain. 01/21/2017 Patient is awake and oriented 3. Today patient isn't complaining of bilateral thigh pain. No swelling or redness noted. Otherwise patient denied any chest pain or short of breath. Patient has been afebrile today. Chest x-ray showed improvement CHF and correlate for pneumonia. Otherwise patient denied any new complaints. Patient is being transferred to general medical floor. All other review of systems negative except the above Current medications reviewed 01/22/17 feeling better after dialysis, but complains of generalized weakness. maintaining O2 sats in the mid to high 90s on 2 L nasal cannula. Denies chest pain, palpitations. Afebrile, blood cultures currently negative. Objective - Vital Signs Vital signs: Vital Signs Temp 96.3 F L 01/22/17 14:43 Pulse 68 01/22/17 16:00 Resp 18 01/22/17 16:00 BP 98/54 01/22/17 14:43 Pulse Ox 92 L 01/22/17 14:43 Intake & Output 01/21/17 01/22/17 01/22/17 18:59 06:59 18:59 Intake Total 150 50 Output Total 2302 0 Balance -2152 50 Weight 70 kg Intake: IV 70 0.9 KVO 70 Oral 80 50 Output: Urine 0 0 Stool 2 Other 2300 Other: Voiding Method Diaper Diaper Diaper Incontinent Incontinent # Voids 1 0 1 - Exam Patient is sitting up in chair, comfortably, no acute distress, generalized weakness, alert, pleasantly confused HEENT: Normocephalic. Neck is supple. Pupils reactive. Nostrils clear. Oral cavity is moist. Ears reveal no drainage. Neck reveals no JVD, carotid bruits, or thyromegaly. CHEST EXAMINATION: Trachea is central. Symmetrical expansion. Bilateral diminished air entry basally. Bibasilar crackles, no rhonchi, No wheezing CARDIAC: Normal S1, S2 with no gallops. No murmurs ABDOMEN: Soft. Bowel sounds normal. No organomegaly. No abdominal bruits. Extremities: reveal no edema. No clubbing or cyanosis Neurologically awake, alert, oriented x2 with well-coordinated movements. No focal deficits noted Skin: No rash or skin lesions. Psychiatric: Operative. Nonsuicidal Musculoskeletal: No joint swelling or deformity. Normal range of motion. - Labs CBC & Chem 7: 01/23/17 07:56 01/23/17 07:56 Labs: Abnormal Lab Results - Last 24 Hours (Table) 01/19/17 01/21/17 01/21/17 Range/Units 08:50 17:30 20:55 POC Glucose (mg/dL) 300 H 190 H (75-99) mg/dL Crossmatch See Detail 01/22/17 01/22/17 01/22/17 Range/Units 06:54 07:18 07:42 POC Glucose (mg/dL) 63 L 52 L 66 L (75-99) mg/dL Crossmatch 01/22/17 01/22/17 Range/Units 08:02 12:17 POC Glucose (mg/dL) 56 L 168 H (75-99) mg/dL Crossmatch Microbiology - Last 24 Hours (Table) 01/18/17 22:00 Blood Culture - Preliminary Blood No Growth after 72 hours 01/18/17 16:32 Blood Culture - Preliminary Blood No Growth after 72 hours 01/15/17 16:11 Blood Culture - Final Blood No Growth after 144 hours Assessment and Plan Assessment: #1 fever with sepsis. Patient had positive blood cultures at dialysis center. Suspected pneumonia.. Influenza negative. Chest x-ray showed fluid overload no infiltrates noted. Urine culture was ordered. Showed Linda species. Patient does not have any cough or sputum production. Blood cultures showed no growth. Currently patient is afebrile. C. diff toxin negative. #2 altered mental status/metabolic encephalopathy likely due to infection and electrolyte abnormality. Improving #2 acute hypoxic respiratory failure secondary to fluid overload. #2 acute on chronic CHF with diastolic dysfunction due to fluid overload. #3 mild DKA. Patient was started on insulin drip. AG-16 and a acetone positive. Resolving now #2 recent Dark colored stools due to GI bleed. Hemoglobin 7.9 on admission. Will follow H&H. Coumadin on hold now. #2 paroxysmal atrial fibrillation on anticoagulation with Coumadin #3 ESRD on hemo-dialysis. Left AV graft. #3 history of coronary artery disease status post stent placement #5. Anemia of chronic disease on epogen. Status post 1 unit PRBC transfusion on 01/19 #6 elevated troponin level. Unlikely acute CA #7 diabetes type 2 uncontrolled with A1c 8.4 #8 hypertension #9 history of GI bleed in November 2015. Status post coloscopy and found to have AVM Plan: Continue on current medication regime , amiodarone, metipranolol, monitoring and symptomatic treatment. Hemodialysis as per nephrology. Antibiotics as per infectious disease. Resume anticoagulation as per cardiology. PT/OT, possible subacute rehab at discharge. Repeat labs ordered for tomorrow. The impression and plan of care has been dictated as directed. : I performed a history and examination of this patient, discussed the same with the dictator. I agree with the dictator's note ,documented as a scribe. Any additional findings or plans will be noted.
[2017-01-23 16:59] LABS: Glucose,Whole Blood 166 mg/dL (75-99)
[2017-01-23] MEDS: MEROPENEM 1 GM in SODIUM CHLORIDE 0.9% 100 ML IVPB SCH (18:10)
[2017-01-23] MEDS: ATORVASTATIN 40 MG TAB PO SCH (20:30)
[2017-01-23 20:54] LABS: Glucose,Whole Blood 276 mg/dL (75-99)
[2017-01-23] MEDS: ACETAMINOPHEN TAB 325 MG TAB PO PRN (21:07)
[2017-01-23] MEDS: INSULIN DETEMIR 100 UNIT/ML 10 ML VIAL SQ SCH (21:08)
--- NOTE | 2017-01-23 23:13 | P.PN ---
Subjective Progress Note Date: 01/23/17 Principal diagnosis: Sepsis 57-year-old Afro[place] female presents to the emergency center because there was difficulties with her mental status. The family relate that she developed confusion and was quite lethargic. She has a long-standing history of end- stage renal disease on hemodialysis through the local dialysis center in our community. When she was at her last dialysis center they were concerned that she had evidence of sepsis and was given a dose of vancomycin. Other notation of developing some diarrhea she was feeling relatively well until the onset of the significant altered mentation as well as a high-grade fever. Consult her family brought her to the emergency center where she was admitted at the present time with a temperature of 100 medical floor but had worsening of her status developed evidence of diabetic ketoacidosis was transferred to the intensive care unit. Because of ongoing sepsis infectious diseases consultation was requested. The patient currently has been seen by the dialysis nurse dialysis has started. And quite surprising with the start of dialysis she's not feeling considerably better. She was awake alert oriented to person and place. She remembers the dialysis nurses name without difficulty. She was able to relate the current history. Nursing staff relates that a few hours ago she was unable to give any history at all. At this time she just feels poorly with a high-grade fever. She has some generalized body ache. Her appetite is been poor. She has some nausea without emesis. She's had a a headache and it's not severe at this point in time. She 's had no rigor. He has noted mental status is improved. Still with some forgetful nature. And has significant generalized weakness. Objective - Vital Signs Vital signs: Vital Signs Temp 97.4 F L 01/23/17 15:37 Pulse 78 01/23/17 07:00 Resp 18 01/23/17 19:59 BP 104/57 01/23/17 15:37 Pulse Ox 96 01/23/17 15:37 Intake & Output 01/23/17 01/23/17 01/24/17 06:59 18:59 06:59 Weight 70 kg Other: Voiding Method Diaper Incontinent # Voids 0 1 # Bowel Movements 0 - Exam Pleasant 57-year-old woman who is quite comfortable at this time. She's feeling better now that her fevers resolved. The dutch odor of her ketosis has resolved. HEENT: Anicteric conjunctiva are pink and moist nasal mucosa grossly intact without significant lesions, there is no thrush. Evidence of bilateral cataract extraction and lens implantation Neck: The neck is supple without significant lymphadenopathy or thyromegaly. Lungs: They're symmetrical air entry, there is evidence of only few basilar crackles. No bronchial sounds are heard. No dullness or egophony. Heart: Regular rate and rhythm with an audible S1-S2, no S3 soft S4 and the hum of the fistula is easily heard. There is no significant murmur click or rub, PMI was nondisplaced. Abdomen: Positive bowel sounds soft and nontender without palpable masses or organomegaly. There was no guarding or rebound. Extremities: The upper extremities have excellent pulses they are symmetric, no significant petechiae or telangiectasia. No splinter hemorrhages were noted. The lower extremities are free from significant edema. The peripheral pulses were 2+ and symmetric. Neuro: Patient is now much more awake and alert. oriented to person and place and year. Appears to be have somewhat of a waxing status in that she does very well around the time of dialysis. The fevers have resolved The patient is much improved today. - Labs CBC & Chem 7: 01/23/17 07:56 01/23/17 07:56 Labs: Abnormal Lab Results - Last 24 Hours (Table) 01/23/17 01/23/17 01/23/17 Range/Units 02:27 07:08 07:56 RBC (3.80-5.40) m/uL Hgb (11.4-16.0) gm/dL Hct (34.0-46.0) % MCHC (31.0-37.0) g/dL RDW (11.5-15.5) % Lymphocytes # (1.0-4.8) k/uL Sodium 136 L (137-145) mmol/L BUN 46 H (7-17) mg/dL Creatinine 7.90 H* (0.52-1.04) mg/dL Glucose 215 H (74-99) mg/dL POC Glucose (mg/dL) 227 H 204 H (75-99) mg/dL 01/23/17 01/23/17 01/23/17 Range/Units 07:56 12:20 16:56 RBC 3.30 L (3.80-5.40) m/uL Hgb 9.8 L (11.4-16.0) gm/dL Hct 32.0 L (34.0-46.0) % MCHC 30.8 L (31.0-37.0) g/dL RDW 19.3 H (11.5-15.5) % Lymphocytes # 0.4 L (1.0-4.8) k/uL Sodium (137-145) mmol/L BUN (7-17) mg/dL Creatinine (0.52-1.04) mg/dL Glucose (74-99) mg/dL POC Glucose (mg/dL) 136 H 166 H (75-99) mg/dL 01/23/17 Range/Units 20:53 RBC (3.80-5.40) m/uL Hgb (11.4-16.0) gm/dL Hct (34.0-46.0) % MCHC (31.0-37.0) g/dL RDW (11.5-15.5) % Lymphocytes # (1.0-4.8) k/uL Sodium (137-145) mmol/L BUN (7-17) mg/dL Creatinine (0.52-1.04) mg/dL Glucose (74-99) mg/dL POC Glucose (mg/dL) 276 H (75-99) mg/dL Microbiology - Last 24 Hours (Table) 01/18/17 16:32 Blood Culture - Preliminary Blood No Growth after 120 hours 01/18/17 22:00 Blood Culture - Preliminary Blood No Growth after 96 hours Laboratory Results WBC 6.7 k/uL (3.8-10.6) 01/23/17 07:56 RBC 3.30 m/uL (3.80-5.40) L 01/23/17 07:56 Hgb 9.8 gm/dL (11.4-16.0) L 01/23/17 07:56 Hct 32.0 % (34.0-46.0) L 01/23/17 07:56 MCV 96.7 fL (80.0-100.0) 01/23/17 07:56 MCH 29.8 pg (25.0-35.0) 01/23/17 07:56 MCHC 30.8 g/dL (31.0-37.0) L 01/23/17 07:56 RDW 19.3 % (11.5-15.5) H 01/23/17 07:56 Plt Count 262 k/uL (150-450) 01/23/17 07:56 Neutrophils % 80 % 01/23/17 07:56 Neutrophils % (Manual) 69 % 01/21/17 05:40 Band Neutrophils % 11 % 01/21/17 05:40 Lymphocytes % 7 % 01/23/17 07:56 Lymphocytes % (Manual) 12 % 01/21/17 05:40 Monocytes % 3 % 01/23/17 07:56 Monocytes % (Manual) 2 % 01/21/17 05:40 Eosinophils % 5 % 01/23/17 07:56 Eosinophils % (Manual) 6 % 01/21/17 05:40 Basophils % 1 % 01/23/17 07:56 Neutrophils # 5.3 k/uL (1.3-7.7) 01/23/17 07:56 Neutrophils # (Manual) 4.50 k/uL (1.3-7.7) 01/21/17 05:40 Lymphocytes # 0.4 k/uL (1.0-4.8) L 01/23/17 07:56 Lymphocytes # (Manual) 0.68 k/uL (1.0-4.8) L 01/21/17 05:40 Monocytes # 0.2 k/uL (0-1.0) 01/23/17 07:56 Monocytes # (Manual) 0.11 k/uL (0-1.0) 01/21/17 05:40 Eosinophils # 0.3 k/uL (0-0.7) 01/23/17 07:56 Eosinophils # (Manual) 0.34 k/uL (0-0.7) 01/21/17 05:40 Basophils # 0.1 k/uL (0-0.2) 01/23/17 07:56 Nucleated RBCs 0 /100 WBC (0-0) 01/21/17 05:40 Manual Slide Review Performed 01/21/17 05:40 Polychromasia Present 01/18/17 05:32 Hypochromasia Marked 01/23/17 07:56 Poikilocytosis Slight 01/23/17 07:56 Poikilocytosis (manual Present 01/18/17 05:32 Anisocytosis Slight 01/23/17 07:56 Macrocytosis Slight 01/23/17 07:56 PT 10.7 sec (9.0-12.0) 01/19/17 04:35 INR 1.1 (<1.2) 01/19/17 04:35 APTT 23.0 sec (22.0-30.0) 01/15/17 16:11 Sample Site r rad 01/16/17 16:17 ABG pH 7.49 (7.35-7.45) H 01/16/17 16:17 ABG pCO2 29 mmHg (35-45) L 01/16/17 16:17 ABG pO2 79 mmHg (83-108) L 01/16/17 16:17 ABG HCO3 22 mmol/L (21-25) 01/16/17 16:17 ABG Total CO2 23 mmol/L (19-24) 01/16/17 16:17 ABG O2 Saturation 96.8 % (94-97) 01/16/17 16:17 ABG Base Excess -0.7 mmol/L 01/16/17 16:17 FiO2 45 % 01/16/17 16:17 Sodium 136 mmol/L (137-145) L 01/23/17 07:56 Potassium 4.7 mmol/L (3.5-5.1) 01/23/17 07:56 Chloride 100 mmol/L (98-107) 01/23/17 07:56 Carbon Dioxide 22 mmol/L (22-30) 01/23/17 07:56 Anion Gap 14 mmol/L 01/23/17 07:56 BUN 46 mg/dL (7-17) H 01/23/17 07:56 Creatinine 7.90 mg/dL (0.52-1.04) H* 01/23/17 07:56 Est GFR (MDRD) Af Amer 6 (>60 ml/min/1.73 sqM) 01/23/17 07:56 Est GFR (MDRD) Non-Af 5 (>60 ml/min/1.73 sqM) 01/23/17 07:56 Glucose 215 mg/dL (74-99) H 01/23/17 07:56 POC Glucose (mg/dL) 276 mg/dL (75-99) H 01/23/17 20:53 POC Glu [employer] ID [place] Tom 01/23/17 20:[address] Glu mg/dL 183 01/16/17 22:20 Hemoglobin A1c 8.0 % (4.0-6.0) H 01/16/17 22:20 Plasma Lactic Acid Tomas 1.7 mmol/L (0.7-2.0) 01/17/17 07:48 Calcium 8.6 mg/dL (8.4-10.2) 01/23/17 07:56 Phosphorus 4.3 mg/dL (2.5-4.5) 01/21/17 05:40 Magnesium 2.3 mg/dL (1.6-2.3) 01/21/17 05:40 Iron 27 ug/dL (50-170) L 01/17/17 05:37 TIBC 191 ug/dL (228-460) L 01/17/17 05:37 Iron Saturation 14.14 (12.00-45.00) 01/17/17 05:37 Ferritin 9932.8 ng/mL (10.0-291.0) H 01/17/17 05:37 Total Bilirubin 0.5 mg/dL (0.2-1.3) 01/15/17 16:11 AST 42 U/L (14-36) H 01/15/17 16:11 ALT 37 U/L (9-52) 01/15/17 16:11 Alkaline Phosphatase 98 U/L (38-126) 01/15/17 16:11 Ammonia <9 umol/L (<30) 01/16/17 22:20 Total Creatine Kinase 76 U/L (30-135) 01/15/17 16:11 CK-MB (CK-2) 0.8 ng/mL (0.0-2.4) 01/15/17 16:11 CK-MB (CK-2) Rel Index 1.1 01/15/17 16:11 Troponin I 0.182 ng/mL (0.000-0.034) H* 01/16/17 03:13 NT-Pro-B Natriuret Pep 03409 pg/mL 01/16/17 08:00 Total Protein 6.5 g/dL (6.3-8.2) 01/15/17 16:11 Albumin 3.7 g/dL (3.5-5.0) 01/15/17 16:11 Urine Color Yellow 01/18/17 14:15 Urine Appearance Cloudy (Clear) H 01/18/17 14:15 Urine pH 7.0 (5.0-8.0) 01/18/17 14:15 Ur Specific [place] 1.014 (1.001-1.035) 01/18/17 14:15 Urine Protein 3+ (Negative) H 01/18/17 14:15 Urine Glucose (UA) 3+ (Negative) H 01/18/17 14:15 Urine Ketones Negative (Negative) 01/18/17 14:15 Urine Blood Moderate (Negative) H 01/18/17 14:15 Urine Nitrite Negative (Negative) 01/18/17 14:15 Urine Bilirubin Negative (Negative) 01/18/17 14:15 Urine Urobilinogen <2.0 mg/dL (<2.0) 01/18/17 14:15 Ur Leukocyte Esterase Moderate (Negative) H 01/18/17 14:15 Urine RBC 47 /hpf (0-5) H 01/18/17 14:15 Urine WBC 124 /hpf (0-5) H 01/18/17 14:15 Ur Squamous Epith Cells 95 /hpf (0-4) H 01/18/17 14:15 Urine Bacteria Few /hpf (None) H 01/18/17 14:15 Hyaline Casts 108 /lpf (0-2) H 01/18/17 14:15 Urine Mucus Rare /hpf (None) H 01/18/17 14:15 Urine Yeast (Budding) Few /hpf (None) H 01/18/17 14:15 Stool Occult Blood Positive (Negative) H 01/19/17 08:50 Random Vancomycin 17.0 ug/mL 01/23/17 07:56 Acetone, Qual Positive (Negative) 01/16/17 08:00 C. difficile (EIA) Intrp Negative (Negative) 01/19/17 05:00 Influenza Type A RNA Not Detected (Not Detectd) 01/15/17 15:50 Influenza Type B (PCR) Not Detected (Not Detectd) 01/15/17 15:50 Blood Type A Positive 01/19/17 08:50 Blood Type Recheck No 01/19/17 08:50 Antibody Screen POSITIVE 01/19/17 08:50 Antibody Identification Anti-K 01/19/17 08:50 Direct Antiglob Test Negative 01/19/17 08:50 Crossmatch See Detail 01/19/17 08:50 Spec Expiration Date 01/22/2017234901/19/17 08:50 Microbiology 01/18/17 16:32 Blood Blood Culture - Preliminary No Growth after 120 hours 01/18/17 22:00 Blood Blood Culture - Preliminary No Growth after 96 hours 01/15/17 16:11 Blood Blood Culture - Final No Growth after 144 hours 01/18/17 14:15 Urine,Catheterized Urine Culture - Final Linda sp,not albicans/galbr Assessment and Plan (1) Altered mental status Current Visit: Yes Status: Acute Code(s): R41.82 - ALTERED MENTAL STATUS, UNSPECIFIED SNOMED Code(s): 743370180 (2) Sepsis Narrative/Plan: 57-year-old female presents to emergency center with her family because of some altered mentation. At presentation is evidence of fever and concerns for sepsis. There is some data that is provided that at the dialysis center she had evidence of a positive blood culture. Intravenous antibiotic therapy was initiated the dialysis center with vancomycin. She's now presented to Hospital. There is evidence of worsening of her status. She developed diabetic ketoacidosis which further worsened her metabolic state. He also worsened her neurological state. Her DKA is now under much better control and insulin drip is newly turned off. The gap is closed. And she started to feel considerably better. However this ongoing concerns underlying sepsis. With her dialysis status vancomycin is appropriate however we'll alter ceftriaxone to ceftazidime ensure that were covering for Pseudomonas which is a more common pathogen in this population. Follow-up cultures are in process. Her DKA is being actively treated insulin drip is being currently tapered at this time. Was having some improvement but again is febrile again. Blood and urine cultures are process. Negative so far. At this time continue with vancomycin as well as ceftaxidime for coverage of staph and strep and pseudomonas. It does appear her significant ketosis is resolved. Nephrology is following and will address her significant anemia. Patient had some further fever last evening. Antimicrobial therapy was altered from Fortaz to meropenem. Repeat cultures were requested. Cultures remain negative. Good response to the meropenem. We will complete 7 days. Urine cultures in process. Prior blood cultures are negative. Mentation remains improved especially after hemodialysis. Current Visit: Yes Status: Acute Code(s): A41.9 - SEPSIS, UNSPECIFIED ORGANISM SNOMED Code(s): 95495578 (3) DKA (diabetic ketoacidoses) Current Visit: No Status: Acute Code(s): E13.10 - OTH DIABETES MELLITUS WITH KETOACIDOSIS WITHOUT COMA SNOMED Code(s): 391078740 (4) Chronic kidney disease with end stage renal failure on dialysis Current Visit: Yes Status: Acute Code(s): N18.6 - END STAGE RENAL DISEASE; Z99.2 - DEPENDENCE ON RENAL DIALYSIS SNOMED Code(s): 043240637
--- NOTE | 2017-01-23 23:33 | P.PN ---
Subjective Progress Note Date: 01/23/17 Principal diagnosis: Sepsis Patient is a 56-year-old female with a past medical history of ESRD on hemodialysis MWF via AV graft, hypertension, diabetes type 2 history of coronary disease and recently diagnosed atrial fibrillation and was started on anticoagulation with Coumadin presented to the ER due to altered mental status. Patient had hemodialysis last night. Patient was supposed to be confused at the time. Patient woke up next morning with more confusion and also noted to have fevers. Patient's family member says that blood culture set dialysis Center showed infection and patient was sent to Hospital. Otherwise patient seems to be lethargic and confused but oriented 2. Denied any complaints of chest pain or short of breath. No nausea or nausea vomiting or diarrhea. Patient had one episode of diarrhea and C. diff was sent. Today afternoon patient became more confused and shortness of breath requiring oxygen. Patient was placed on Ventimask and repeat labs were attempted but could not get IV access. Patient was placed on telemetry monitoring and ABGs will be obtained. Patient had hemodialysis today. Chest x-ray on admission showed fluid overload BNP greater than 80,000 on admission. Patient was recently admitted to the hospital with a GI bleed/darker stools. Patient was started back on anti-coagulation after a week and current hemoglobin is 7.9. Otherwise patient does not have any fever or chills now . Blood cultures were sent. No leukocytosis noted. Patient was found to have hyperglycemia and was started on insulin drip. Her gap 23 and bicarbonate 19. Acetone positive. 01/17/2017 Patient seems to be confused on and off. Patient currently is to be febrile today. Blood cultures are negative so far. Patient denied any worsening short of breath. No complaints of chest pain. No diarrhea no abdominal pain. Anion gap closed. Insulin drip has been discontinued. Patient will be transferred to MICU due to patient condition of fever and altered mental status. 01/18/2017 Patient was improving clinically decreased orientation but today morning patient became febrile again. Blood cultures is negative so far. Patient was on vancomycin and ceftazidime. Ceftazidime was changed to meropenem as widely recommendations. Patient is still having mild DKA. Patient did have hemodialysis today with 2 l ultrafiltration. Chest x-ray showed improvement in CHF . Patient denied any short of breath. No complaints of chest pain. No nausea vomiting or abdominal pain. 01/19/2017 Patient is more awake and oriented today. Fever improved. Continue on antibiotics in the form of vancomycin and meropenem. ID and pulmonary is on board. Patient denied any complaints of chest pain or short of breath. No nausea vomiting. Hemoglobin found to be 6.1 and will be getting 1 unit PRBC during hemodialysis today. 01/20/2017 Patient is more awake and oriented today. Patient did have hemodialysis. Urine culture showed Linda species. Chest x-ray showed improved air space disease. Patient did have low-grade fever otherwise no complaints of chest pain or short of breath. No nausea vomiting or abdominal pain. 01/21/2017 Patient is awake and oriented 3. Today patient isn't complaining of bilateral thigh pain. No swelling or redness noted. Otherwise patient denied any chest pain or short of breath. Patient has been afebrile today. Chest x-ray showed improvement CHF and correlate for pneumonia. Otherwise patient denied any new complaints. Patient is being transferred to general medical floor. 01/23/2017 Patient is more awake and oriented. Patient has been talking to herself sometimes. Otherwise patient denied any chest pain. No worsening short of breath. Patient has been afebrile. Patient underwent hemodialysis today. No fever or chills. Patient is still requiring oxygen therapy. All other review of systems negative except the above Current medications reviewed Objective - Vital Signs Vital signs: Vital Signs Temp 97.4 F L 01/23/17 15:37 Pulse 78 01/23/17 07:00 Resp 18 01/23/17 19:59 BP 104/57 01/23/17 15:37 Pulse Ox 96 01/23/17 15:37 Intake & Output 01/23/17 01/23/17 01/24/17 06:59 18:59 06:59 Weight 70 kg Other: Voiding Method Diaper Incontinent # Voids 0 1 # Bowel Movements 0 - Exam PHYSICAL EXAMINATION: Patient is lying in the bed comfortably, no acute distress, awake alert but confused and is oriented. HEENT: Normocephalic. Neck is supple. Pupils reactive. Nostrils clear. Oral cavity is moist. Ears reveal no drainage. Neck reveals no JVD, carotid bruits, or thyromegaly. CHEST EXAMINATION: Trachea is central. Symmetrical expansion. Bilateral crackles present. No wheezing CARDIAC: Normal S1, S2 with no gallops. No murmurs ABDOMEN: Soft. Bowel sounds normal. No organomegaly. No abdominal bruits. Extremities: reveal no edema. No clubbing or cyanosis Neurologically awake, alert, oriented x3 with well-coordinated movements. No focal deficits noted Skin: No rash or skin lesions. Psychiatric: Operative. Nonsuicidal Musculoskeletal: No joint swelling or deformity. Normal range of motion. - Labs CBC & Chem 7: 01/23/17 07:56 01/23/17 07:56 Labs: Abnormal Lab Results - Last 24 Hours (Table) 01/23/17 01/23/17 01/23/17 Range/Units 02:27 07:08 07:56 RBC (3.80-5.40) m/uL Hgb (11.4-16.0) gm/dL Hct (34.0-46.0) % MCHC (31.0-37.0) g/dL RDW (11.5-15.5) % Lymphocytes # (1.0-4.8) k/uL Sodium 136 L (137-145) mmol/L BUN 46 H (7-17) mg/dL Creatinine 7.90 H* (0.52-1.04) mg/dL Glucose 215 H (74-99) mg/dL POC Glucose (mg/dL) 227 H 204 H (75-99) mg/dL 01/23/17 01/23/17 01/23/17 Range/Units 07:56 12:20 16:56 RBC 3.30 L (3.80-5.40) m/uL Hgb 9.8 L (11.4-16.0) gm/dL Hct 32.0 L (34.0-46.0) % MCHC 30.8 L (31.0-37.0) g/dL RDW 19.3 H (11.5-15.5) % Lymphocytes # 0.4 L (1.0-4.8) k/uL Sodium (137-145) mmol/L BUN (7-17) mg/dL Creatinine (0.52-1.04) mg/dL Glucose (74-99) mg/dL POC Glucose (mg/dL) 136 H 166 H (75-99) mg/dL 01/23/17 Range/Units 20:53 RBC (3.80-5.40) m/uL Hgb (11.4-16.0) gm/dL Hct (34.0-46.0) % MCHC (31.0-37.0) g/dL RDW (11.5-15.5) % Lymphocytes # (1.0-4.8) k/uL Sodium (137-145) mmol/L BUN (7-17) mg/dL Creatinine (0.52-1.04) mg/dL Glucose (74-99) mg/dL POC Glucose (mg/dL) 276 H (75-99) mg/dL Microbiology - Last 24 Hours (Table) 01/18/17 16:32 Blood Culture - Preliminary Blood No Growth after 120 hours 01/18/17 22:00 Blood Culture - Preliminary Blood No Growth after 96 hours Assessment and Plan Assessment: #1 fever with sepsis. Patient had positive blood cultures at dialysis center. Suspected pneumonia.. Influenza negative. Chest x-ray showed fluid overload no infiltrates noted. Urine culture was ordered. Showed Linda species. Patient does not have any cough or sputum production. Blood cultures showed no growth. Currently patient is afebrile. C. diff toxin negative. Antibiotics changed to meropenem from ceftazidime. Repeat cultures were ordered. #2 altered mental status/metabolic encephalopathy likely due to infection and electrolyte abnormality. Improving #2 acute hypoxic respiratory failure secondary to fluid overload. #2 acute on chronic CHF with diastolic dysfunction due to fluid overload. #3 mild DKA. Patient was started on insulin drip. AG-16 and a acetone positive. Resolving now #2 recent Dark colored stools due to GI bleed. Hemoglobin 7.9 on admission. Will follow H&H. Coumadin on hold now. #2 paroxysmal atrial fibrillation on anticoagulation with Coumadin #3 ESRD on hemo-dialysis. Left AV graft. Thursday was decided #3 history of coronary artery disease status post stent placement #5. Anemia of chronic disease on epogen. Status post 1 unit PRBC transfusion on 01/19 #6 elevated troponin level. Unlikely acute CT #7 diabetes type 2 uncontrolled with A1c 8.4 #8 hypertension #9 history of GI bleed in November 2015. Status post coloscopy and found to have AVM Plan: Patient had hemodialysis done on today with 2 l ultrafiltration. Chest x-ray showed much improvement. Insulin drip was discontinued and currently on insulin regimen.. We will continue the antibiotics in the form of vancomycin and ceftazidime---> meropenem.. Blood cultures negative so far. Urine culture showed Linda Nephrology is on board. Will monitor H&H. Further recommendations based on the clinical course. Prognosis is guarded with multiple medical problems and comorbid conditions discussed with family in detail at bedside.
[2017-01-24 07:22] LABS: Glucose,Whole Blood 78 mg/dL (75-99)
[2017-01-24] MEDS: INSULIN ASPART 100 UNIT/ML 1 ML 10 ML VIAL SQ SCH ×4 (07:49→21:23)
[2017-01-24] MEDS: SEVELAMER 800 MG TAB PO SCH ×3 (07:52→17:55)
[2017-01-24 08:31] LABS: Anisocytosis Slight; Aty Lym Flag Slight; CH 30.8; CHCM 32.6; HCT 31.6 % (34.0-46.0); HDW 3.93; HGB 9.8 gm/dL (11.4-16.0); Hypochromasia Slight; MCH 29.5 pg (25.0-35.0); MCV 95.1 fL (80.0-100.0); Mean Platelet Volume 7.7; Poikilocytosis Slight; RBC 3.32 m/uL (3.80-5.40); RDW 17.7 % (11.5-15.5); WBC 5.9 k/uL (3.8-10.6)
[2017-01-24 08:50] LABS: Calcium 8.6 mg/dL (8.4-10.2); Potassium 3.9 mmol/L (3.5-5.1)
[2017-01-24 09:31] LABS: Add Differential Manual Differential
[2017-01-24 09:34] LABS: Band Neutrophils % 3 %; Manual Review Performed; Myelocytes % 1 %; Nucleated Red Blood Cells 0 /100 WBC (0-0); Total Cells Counted 200
[2017-01-24 09:35] LABS: Toxic Granulation Present
[2017-01-24] MEDS: CLOPIDOGREL 75 MG TAB PO SCH (11:39)
[2017-01-24] MEDS: ASPIRIN 81 MG PO SCH (11:39)
[2017-01-24] MEDS: FOLIC ACID-VIT B COMPLEX-VIT C 1 CAP PO SCH (11:40)
[2017-01-24] MEDS: POTASSIUM CHLORIDE ORAL LIQUID 40 MEQ/30 ML CUP PO SCH (11:40)
[2017-01-24] MEDS: GABAPENTIN 100 MG CAP PO SCH ×3 (11:40→21:25)
--- NOTE | 2017-01-24 11:46 | XR ---
EXAMINATION TYPE: XR chest 1V portable DATE OF EXAM: 01/24/2017 HISTORY: r/o pneumonia . REFERENCE: Previous study dated 01/21/2017. FINDINGS: The heart is mildly enlarged. There is calcification of the aortic knuckle. The lungs are n ow clear. Pleural spaces are clear. Pulmonary vascularity is returned to normal. IMPRESSION: RESOLVING CHANGES OF CONGESTIVE HEART FAILURE.
[2017-01-24] MEDS: AMIODARONE 200 MG TAB PO SCH ×2 (12:23→20:05)
[2017-01-24] MEDS: amLODIPine 5 MG TAB PO SCH (12:24)
[2017-01-24] MEDS: METOPROLOL SUCCINATE (ER) 50 MG TAB.ER.24H PO SCH (12:24)
[2017-01-24 12:31] LABS: Glucose,Whole Blood 182 mg/dL (75-99)
--- NOTE | 2017-01-24 12:50 | P.PN ---
Subjective Patient is seen in follow-up for end-stage renal disease. She is maintained on hemodialysis on a Thursday schedule. Patient presented with altered mental status and fever. There wasn't a clear cause to the fever. She has been afebrile now. She was recently started on anticoagulation for atrial fibrillation and seems to have developed recurring GI bleed. Anticoagulation is been discontinued for now. Denies any melena or hematochezia. Denies any other signs of bleeding. She's currently resting in bed. She denies any chest pain. Her dyspnea has improved. Appetite is gradually returning. She underwent 1.5 L of UF only this morning. Admits to weakness particularly in her legs. Vital signs are stable. General: The patient appeared well nourished and normally developed. HEENT: Head exam is unremarkable. Neck is without jugular venous distension. LUNGS: Lungs are clear to auscultation and percussion. Breath sounds decreased. HEART: Rate and Rhythm are regular. First and second heart sounds normal. No murmurs, rubs or gallops. ABDOMEN: Abdominal exam reveals normal bowel sounds. Non-tender and non- distended. No evidence of peritonitis. EXTREMITITES: No clubbing, cyanosis, or edema. Objective - Vital Signs Vital signs: Vital Signs Temp 97.0 F L 01/24/17 06:09 Pulse 76 01/24/17 12:20 Resp 18 01/24/17 06:09 BP 101/50 01/24/17 12:20 Pulse Ox 98 01/24/17 08:59 Intake & Output 01/23/17 01/24/17 01/24/17 18:59 06:59 18:59 Weight 70 kg Other: # Voids 1 0 - Labs CBC & Chem 7: 01/24/17 08:15 01/24/17 08:15 Labs: Abnormal Lab Results - Last 24 Hours (Table) 01/23/17 01/23/17 01/23/17 Range/Units 12:20 16:56 20:53 RBC (3.80-5.40) m/uL Hgb (11.4-16.0) gm/dL Hct (34.0-46.0) % RDW (11.5-15.5) % Lymphocytes # (Manual) (1.0-4.8) k/uL Myelocytes # (Manual) (0) k/uL BUN (7-17) mg/dL Creatinine (0.52-1.04) mg/dL POC Glucose (mg/dL) 136 H 166 H 276 H (75-99) mg/dL 01/24/17 01/24/17 01/24/17 Range/Units 08:15 08:15 12:03 RBC 3.32 L (3.80-5.40) m/uL Hgb 9.8 L (11.4-16.0) gm/dL Hct 31.6 L (34.0-46.0) % RDW 17.7 H (11.5-15.5) % Lymphocytes # (Manual) 0.77 L (1.0-4.8) k/uL Myelocytes # (Manual) 0.06 H (0) k/uL BUN 21 H (7-17) mg/dL Creatinine 4.47 H (0.52-1.04) mg/dL POC Glucose (mg/dL) 182 H (75-99) mg/dL Microbiology - Last 24 Hours (Table) 01/18/17 22:00 Blood Culture - Preliminary Blood No Growth after 120 hours 01/18/17 16:32 Blood Culture - Preliminary Blood No Growth after 120 hours Assessment and Plan Plan: Assessment: #1. End-stage renal disease maintained on hemodialysis on a Thursday schedule. #2. Anemia of chronic kidney disease. She is also developed GI bleed from anticoagulation which is now held. Maintained on Aranesp. #3. Fever. Etiology not clear. She is afebrile now. Urine culture did grow Linda species. #4. Atrial fibrillation maintained on amiodarone. Anticoagulation held. #5. Chronic kidney disease mineral bone disease. #6. Volume overload. Improved. #7. Insulin dependent diabetes mellitus. Plan: Hemodialysis Thursday with goal 3 L ultrafiltration. Maintain Renvela with meals. Antibiotics per infectious disease recommendations. Continue with midodrine prior to dialysis to achieve ultrafiltration goal. Anticipated discharge to rehab early next week.
[2017-01-24] MEDS: guaiFENesin SYRUP 100MG/5ML 200 MG/10 ML CUP PO PRN (15:37)
[2017-01-24 16:45] LABS: Glucose,Whole Blood 192 mg/dL (75-99)
[2017-01-24] MEDS: MEROPENEM 1 GM in SODIUM CHLORIDE 0.9% 100 ML IVPB SCH (17:00)
[2017-01-24] MEDS: ATORVASTATIN 40 MG TAB PO SCH (20:05)
[2017-01-24 21:20] LABS: Glucose,Whole Blood 196 mg/dL (75-99)
[2017-01-24] MEDS: INSULIN DETEMIR 100 UNIT/ML 10 ML VIAL SQ SCH (21:24)
--- NOTE | 2017-01-24 23:22 | P.PN ---
Subjective Progress Note Date: 01/24/17 Principal diagnosis: Sepsis Patient is a 56-year-old female with a past medical history of ESRD on hemodialysis MWF via AV graft, hypertension, diabetes type 2 history of coronary disease and recently diagnosed atrial fibrillation and was started on anticoagulation with Coumadin presented to the ER due to altered mental status. Patient had hemodialysis last night. Patient was supposed to be confused at the time. Patient woke up next morning with more confusion and also noted to have fevers. Patient's family member says that blood culture set dialysis Center showed infection and patient was sent to Hospital. Otherwise patient seems to be lethargic and confused but oriented 2. Denied any complaints of chest pain or short of breath. No nausea or nausea vomiting or diarrhea. Patient had one episode of diarrhea and C. diff was sent. Today afternoon patient became more confused and shortness of breath requiring oxygen. Patient was placed on Ventimask and repeat labs were attempted but could not get IV access. Patient was placed on telemetry monitoring and ABGs will be obtained. Patient had hemodialysis today. Chest x-ray on admission showed fluid overload BNP greater than 80,000 on admission. Patient was recently admitted to the hospital with a GI bleed/darker stools. Patient was started back on anti-coagulation after a week and current hemoglobin is 7.9. Otherwise patient does not have any fever or chills now . Blood cultures were sent. No leukocytosis noted. Patient was found to have hyperglycemia and was started on insulin drip. Her gap 23 and bicarbonate 19. Acetone positive. 01/17/2017 Patient seems to be confused on and off. Patient currently is to be febrile today. Blood cultures are negative so far. Patient denied any worsening short of breath. No complaints of chest pain. No diarrhea no abdominal pain. Anion gap closed. Insulin drip has been discontinued. Patient will be transferred to MICU due to patient condition of fever and altered mental status. 01/18/2017 Patient was improving clinically decreased orientation but today morning patient became febrile again. Blood cultures is negative so far. Patient was on vancomycin and ceftazidime. Ceftazidime was changed to meropenem as widely recommendations. Patient is still having mild DKA. Patient did have hemodialysis today with 2 l ultrafiltration. Chest x-ray showed improvement in CHF . Patient denied any short of breath. No complaints of chest pain. No nausea vomiting or abdominal pain. 01/19/2017 Patient is more awake and oriented today. Fever improved. Continue on antibiotics in the form of vancomycin and meropenem. ID and pulmonary is on board. Patient denied any complaints of chest pain or short of breath. No nausea vomiting. Hemoglobin found to be 6.1 and will be getting 1 unit PRBC during hemodialysis today. 01/20/2017 Patient is more awake and oriented today. Patient did have hemodialysis. Urine culture showed Linda species. Chest x-ray showed improved air space disease. Patient did have low-grade fever otherwise no complaints of chest pain or short of breath. No nausea vomiting or abdominal pain. 01/21/2017 Patient is awake and oriented 3. Today patient isn't complaining of bilateral thigh pain. No swelling or redness noted. Otherwise patient denied any chest pain or short of breath. Patient has been afebrile today. Chest x-ray showed improvement CHF and correlate for pneumonia. Otherwise patient denied any new complaints. Patient is being transferred to general medical floor. 01/23/2017 Patient is more awake and oriented. Patient has been talking to herself sometimes. Otherwise patient denied any chest pain. No worsening short of breath. Patient has been afebrile. Patient underwent hemodialysis today. No fever or chills. Patient is still requiring oxygen therapy. 01/24/2017 Patient was a bit confused during dialysis today. Otherwise patient is more awake and oriented 3 at this time. No complaints of chest pain or shortness of breath. Bilateral leg soreness improved. Patient was able to sit in the chair yesterday. We'll continue the physical therapy and possible rehab transfer on Thursday. Chest x-ray showed resolving congestive heart failure. All other review of systems negative except the above Current medications reviewed Objective - Vital Signs Vital signs: Vital Signs Temp 98.6 F 01/24/17 15:00 Pulse 80 01/24/17 15:00 Resp 18 01/24/17 15:00 BP 108/52 01/24/17 17:00 Pulse Ox 96 01/24/17 15:00 Intake & Output 01/24/17 01/24/17 01/25/17 06:59 18:59 06:59 Other: # Voids 0 1 - Exam PHYSICAL EXAMINATION: Patient is lying in the bed comfortably, no acute distress, awake alert but confused and is oriented. HEENT: Normocephalic. Neck is supple. Pupils reactive. Nostrils clear. Oral cavity is moist. Ears reveal no drainage. Neck reveals no JVD, carotid bruits, or thyromegaly. CHEST EXAMINATION: Trachea is central. Symmetrical expansion. Bilateral basal crackles present. No wheezing CARDIAC: Normal S1, S2 with no gallops. No murmurs ABDOMEN: Soft. Bowel sounds normal. No organomegaly. No abdominal bruits. Extremities: reveal no edema. No clubbing or cyanosis Neurologically awake, alert, oriented x3 with well-coordinated movements. No focal deficits noted Skin: No rash or skin lesions. Psychiatric: Cooperative. Nonsuicidal Musculoskeletal: No joint swelling or deformity. Normal range of motion. - Labs CBC & Chem 7: 01/24/17 08:15 01/24/17 08:15 Labs: Abnormal Lab Results - Last 24 Hours (Table) 01/24/17 01/24/17 01/24/17 Range/Units 08:15 08:15 12:03 RBC 3.32 L (3.80-5.40) m/uL Hgb 9.8 L (11.4-16.0) gm/dL Hct 31.6 L (34.0-46.0) % RDW 17.7 H (11.5-15.5) % Lymphocytes # (Manual) 0.77 L (1.0-4.8) k/uL Myelocytes # (Manual) 0.06 H (0) k/uL BUN 21 H (7-17) mg/dL Creatinine 4.47 H (0.52-1.04) mg/dL POC Glucose (mg/dL) 182 H (75-99) mg/dL 01/24/17 Range/Units 16:43 RBC (3.80-5.40) m/uL Hgb (11.4-16.0) gm/dL Hct (34.0-46.0) % RDW (11.5-15.5) % Lymphocytes # (Manual) (1.0-4.8) k/uL Myelocytes # (Manual) (0) k/uL BUN (7-17) mg/dL Creatinine (0.52-1.04) mg/dL POC Glucose (mg/dL) 192 H (75-99) mg/dL Microbiology - Last 24 Hours (Table) 01/18/17 16:32 Blood Culture - Final Blood No Growth after 144 hours 01/18/17 22:00 Blood Culture - Preliminary Blood No Growth after 120 hours Assessment and Plan Assessment: #1 fever with sepsis. Possible septicemia with positive blood cultures at dialysis center. Influenza negative. Chest x-ray showed fluid overload no infiltrates noted. Urine culture was ordered. Showed Linda species. Patient does not have any cough or sputum production. Blood cultures showed no growth. Currently patient is afebrile. C. diff toxin negative. Antibiotics changed to meropenem from ceftazidime. Repeat cultures were ordered. #2 altered mental status/metabolic encephalopathy likely due to infection and electrolyte abnormality. Improving #2 acute hypoxic respiratory failure secondary to fluid overload. #2 acute on chronic CHF with diastolic dysfunction due to fluid overload. #3 mild DKA. Patient was started on insulin drip. AG-16 and a acetone positive. Resolving now #2 recent Dark colored stools due to GI bleed. Hemoglobin 7.9 on admission. Will follow H&H. Coumadin on hold now. #2 paroxysmal atrial fibrillation on anticoagulation with Coumadin #3 ESRD on hemo-dialysis. Left AV graft. Thursday was decided #3 history of coronary artery disease status post stent placement #5. Anemia of chronic disease on epogen. Status post 1 unit PRBC transfusion on 01/19 #6 elevated troponin level. Unlikely acute [place] #7 diabetes type 2 uncontrolled with A1c 8.4 #8 hypertension #9 history of GI bleed in November 2015. Status post coloscopy and found to have AVM Plan: Patient had hemodialysis done on today with 2 l ultrafiltration. Chest x-ray showed much improvement. Insulin drip was discontinued and currently on insulin regimen.. We will continue the antibiotics in the form of vancomycin and ceftazidime---> meropenem.. Blood cultures negative so far. Urine culture showed Linda Nephrology is on board. Will monitor H&H. Further recommendations based on the clinical course. Prognosis is guarded with multiple medical problems and comorbid conditions discussed with family in detail at bedside.
[2017-01-25 07:13] LABS: Glucose,Whole Blood 182 mg/dL (75-99)
[2017-01-25] MEDS: METOPROLOL SUCCINATE (ER) 50 MG TAB.ER.24H PO SCH (07:36)
[2017-01-25] MEDS: amLODIPine 5 MG TAB PO SCH (07:36)
[2017-01-25] MEDS: FOLIC ACID-VIT B COMPLEX-VIT C 1 CAP PO SCH (07:38)
[2017-01-25] MEDS: INSULIN ASPART 100 UNIT/ML 1 ML 10 ML VIAL SQ SCH ×4 (07:38→21:08)
[2017-01-25] MEDS: SEVELAMER 800 MG TAB PO SCH ×3 (07:38→17:43)
[2017-01-25] MEDS: ASPIRIN 81 MG PO SCH (07:38)
[2017-01-25] MEDS: CLOPIDOGREL 75 MG TAB PO SCH (07:38)
[2017-01-25] MEDS: GABAPENTIN 100 MG CAP PO SCH ×3 (07:39→21:08)
[2017-01-25] MEDS: POTASSIUM CHLORIDE ORAL LIQUID 40 MEQ/30 ML CUP PO SCH (07:39)
[2017-01-25] MEDS: AMIODARONE 200 MG TAB PO SCH ×2 (07:40→21:08)
[2017-01-25 08:16] LABS: Anisocytosis Slight; Aty Lym Flag Slight; CH 30.9; CHCM 32.5; HCT 32.6 % (34.0-46.0); HDW 3.97; HGB 10.3 gm/dL (11.4-16.0); Hypochromasia Slight; MCH 30.2 pg (25.0-35.0); MCHC 31.7 g/dL (31.0-37.0); MCV 95.5 fL (80.0-100.0); Macrocytosis Slight; Mean Platelet Volume 7.9; Poikilocytosis Slight; RBC 3.42 m/uL (3.80-5.40); RDW 17.8 % (11.5-15.5); WBC 11.1 k/uL (3.8-10.6); WBC (Perox) 11.17
[2017-01-25 08:33] LABS: Calcium 8.7 mg/dL (8.4-10.2); Potassium 5.1 mmol/L (3.5-5.1)
[2017-01-25 09:15] LABS: Add Differential Manual Differential
[2017-01-25 09:16] LABS: Band Neutrophils % 1 %; Manual Review Performed; Nucleated Red Blood Cells 0 /100 WBC (0-0); Total Cells Counted 100
[2017-01-25 09:17] LABS: Toxic Granulation Present
--- NOTE | 2017-01-25 10:25 | P.PN ---
Subjective Patient is seen in follow-up for end-stage renal disease. She is maintained on hemodialysis on a Thursday schedule. Patient presented with altered mental status and fever. There wasn't a clear cause to the fever. She has been afebrile now. She was recently started on anticoagulation for atrial fibrillation and seems to have developed recurring GI bleed. Anticoagulation is been discontinued for now. Denies any melena or hematochezia. Denies any other signs of bleeding. She's currently resting in bed. She denies any chest pain. Her dyspnea has improved. Appetite is gradually returning. Admits to weakness particularly in her legs. No other complaints at this time. Vital signs are stable. General: The patient appeared well nourished and normally developed. HEENT: Head exam is unremarkable. Neck is without jugular venous distension. LUNGS: Lungs are clear to auscultation and percussion. Breath sounds decreased. HEART: Rate and Rhythm are regular. First and second heart sounds normal. No murmurs, rubs or gallops. ABDOMEN: Abdominal exam reveals normal bowel sounds. Non-tender and non- distended. No evidence of peritonitis. EXTREMITITES: No clubbing, cyanosis, or edema. Objective - Vital Signs Vital signs: Vital Signs Temp 98.5 F 01/25/17 06:09 Pulse 80 01/25/17 06:09 Resp 17 01/25/17 06:09 BP 103/48 01/25/17 06:09 Pulse Ox 97 01/25/17 06:09 Intake & Output 01/24/17 01/25/17 01/25/17 18:59 06:59 18:59 Other: Voiding Method Diaper Incontinent # Voids 1 # Bowel Movements 1 - Labs CBC & Chem 7: 01/25/17 07:21 01/25/17 07:21 Labs: Abnormal Lab Results - Last 24 Hours (Table) 01/24/17 01/24/17 01/24/17 Range/Units 12:03 16:43 21:18 WBC (3.8-10.6) k/uL RBC (3.80-5.40) m/uL Hgb (11.4-16.0) gm/dL Hct (34.0-46.0) % RDW (11.5-15.5) % Neutrophils # (Manual) (1.3-7.7) k/uL Sodium (137-145) mmol/L BUN (7-17) mg/dL Creatinine (0.52-1.04) mg/dL Glucose (74-99) mg/dL POC Glucose (mg/dL) 182 H 192 H 196 H (75-99) mg/dL 01/25/17 01/25/17 01/25/17 Range/Units 07:08 07:21 07:21 WBC 11.1 H (3.8-10.6) k/uL RBC 3.42 L (3.80-5.40) m/uL Hgb 10.3 L (11.4-16.0) gm/dL Hct 32.6 L (34.0-46.0) % RDW 17.8 H (11.5-15.5) % Neutrophils # (Manual) 7.80 H (1.3-7.7) k/uL Sodium 136 L (137-145) mmol/L BUN 28 H (7-17) mg/dL Creatinine 5.88 H* (0.52-1.04) mg/dL Glucose 201 H (74-99) mg/dL POC Glucose (mg/dL) 182 H (75-99) mg/dL Microbiology - Last 24 Hours (Table) 01/18/17 22:00 Blood Culture - Final Blood No Growth after 144 hours 01/18/17 16:32 Blood Culture - Final Blood No Growth after 144 hours Assessment and Plan Plan: Assessment: #1. End-stage renal disease maintained on hemodialysis on a Thursday schedule. #2. Anemia of chronic kidney disease. She is also developed GI bleed from anticoagulation which is now held. Maintained on Aranesp. #3. Fever. Etiology not clear. She is afebrile now. Urine culture did grow Linda species. #4. Atrial fibrillation maintained on amiodarone. Anticoagulation held. #5. Chronic kidney disease mineral bone disease. #6. Volume overload. Improved. #7. Insulin dependent diabetes mellitus. Plan: Hemodialysis Thursday with goal 3 L ultrafiltration. Maintain Renvela with meals. Antibiotics per infectious disease recommendations. Continue with midodrine prior to dialysis to achieve ultrafiltration goal. Anticipated discharge to rehab early next week.
[2017-01-25 11:26] LABS: Glucose,Whole Blood 259 mg/dL (75-99)
[2017-01-25] MEDS: DARBEPOETIN ALFA 60 MCG/0.3 ML SYRINGE SQ SCH (11:38)
[2017-01-25] MEDS: guaiFENesin SYRUP 100MG/5ML 200 MG/10 ML CUP PO PRN (12:35)
[2017-01-25] MEDS ORDERED: VANCOMYCIN 1,000 MG in SODIUM CHLORIDE 0.9% 250 ML IVPB ONE (16:00)
[2017-01-25 17:16] LABS: Glucose,Whole Blood 325 mg/dL (75-99)
[2017-01-25] MEDS: MEROPENEM 1 GM in SODIUM CHLORIDE 0.9% 100 ML IVPB SCH (18:24)
[2017-01-25 20:50] LABS: Glucose,Whole Blood 230 mg/dL (75-99)
[2017-01-25] MEDS: INSULIN DETEMIR 100 UNIT/ML 10 ML VIAL SQ SCH (21:08)
[2017-01-25] MEDS: ATORVASTATIN 40 MG TAB PO SCH (21:08)
--- NOTE | 2017-01-25 22:33 | P.PN ---
Subjective Progress Note Date: 01/25/17 Principal diagnosis: Sepsis Patient is a 56-year-old female with a past medical history of ESRD on hemodialysis MWF via AV graft, hypertension, diabetes type 2 history of coronary disease and recently diagnosed atrial fibrillation and was started on anticoagulation with Coumadin presented to the ER due to altered mental status. Patient had hemodialysis last night. Patient was supposed to be confused at the time. Patient woke up next morning with more confusion and also noted to have fevers. Patient's family member says that blood culture set dialysis Center showed infection and patient was sent to Hospital. Otherwise patient seems to be lethargic and confused but oriented 2. Denied any complaints of chest pain or short of breath. No nausea or nausea vomiting or diarrhea. Patient had one episode of diarrhea and C. diff was sent. Today afternoon patient became more confused and shortness of breath requiring oxygen. Patient was placed on Ventimask and repeat labs were attempted but could not get IV access. Patient was placed on telemetry monitoring and ABGs will be obtained. Patient had hemodialysis today. Chest x-ray on admission showed fluid overload BNP greater than 80,000 on admission. Patient was recently admitted to the hospital with a GI bleed/darker stools. Patient was started back on anti-coagulation after a week and current hemoglobin is 7.9. Otherwise patient does not have any fever or chills now . Blood cultures were sent. No leukocytosis noted. Patient was found to have hyperglycemia and was started on insulin drip. Her gap 23 and bicarbonate 19. Acetone positive. 01/17/2017 Patient seems to be confused on and off. Patient currently is to be febrile today. Blood cultures are negative so far. Patient denied any worsening short of breath. No complaints of chest pain. No diarrhea no abdominal pain. Anion gap closed. Insulin drip has been discontinued. Patient will be transferred to MICU due to patient condition of fever and altered mental status. 01/18/2017 Patient was improving clinically decreased orientation but today morning patient became febrile again. Blood cultures is negative so far. Patient was on vancomycin and ceftazidime. Ceftazidime was changed to meropenem as widely recommendations. Patient is still having mild DKA. Patient did have hemodialysis today with 2 l ultrafiltration. Chest x-ray showed improvement in CHF . Patient denied any short of breath. No complaints of chest pain. No nausea vomiting or abdominal pain. 01/19/2017 Patient is more awake and oriented today. Fever improved. Continue on antibiotics in the form of vancomycin and meropenem. ID and pulmonary is on board. Patient denied any complaints of chest pain or short of breath. No nausea vomiting. Hemoglobin found to be 6.1 and will be getting 1 unit PRBC during hemodialysis today. 01/20/2017 Patient is more awake and oriented today. Patient did have hemodialysis. Urine culture showed Linda species. Chest x-ray showed improved air space disease. Patient did have low-grade fever otherwise no complaints of chest pain or short of breath. No nausea vomiting or abdominal pain. 01/21/2017 Patient is awake and oriented 3. Today patient isn't complaining of bilateral thigh pain. No swelling or redness noted. Otherwise patient denied any chest pain or short of breath. Patient has been afebrile today. Chest x-ray showed improvement CHF and correlate for pneumonia. Otherwise patient denied any new complaints. Patient is being transferred to general medical floor. 01/23/2017 Patient is more awake and oriented. Patient has been talking to herself sometimes. Otherwise patient denied any chest pain. No worsening short of breath. Patient has been afebrile. Patient underwent hemodialysis today. No fever or chills. Patient is still requiring oxygen therapy. 01/24/2017 Patient was a bit confused during dialysis today. Otherwise patient is more awake and oriented 3 at this time. No complaints of chest pain or shortness of breath. Bilateral leg soreness improved. Patient was able to sit in the chair yesterday. We'll continue the physical therapy and possible rehab transfer on Thursday. Chest x-ray showed resolving congestive heart failure. 01/25/2017 Patient is more awake and oriented today. Able to sit in the chair. Still complaining of bilateral thigh soreness.otherwise no fever no chills no acute overnight issues. Patient will be getting hemodialysis tomorrow. No complaints of chest pain or short of breath. All other review of systems negative except the above Current medications reviewed Objective - Vital Signs Vital signs: Vital Signs Temp 98.5 F 01/25/17 06:09 Pulse 80 01/25/17 06:09 Resp 17 01/25/17 06:09 BP 103/48 01/25/17 06:09 Pulse Ox 97 01/25/17 06:09 Intake & Output 01/25/17 01/25/17 01/26/17 06:59 18:59 06:59 Other: Voiding Method Incontinent # Bowel Movements 1 1 - Exam PHYSICAL EXAMINATION: Patient is lying in the bed comfortably, no acute distress, awake alert but confused and is oriented. HEENT: Normocephalic. Neck is supple. Pupils reactive. Nostrils clear. Oral cavity is moist. Ears reveal no drainage. Neck reveals no JVD, carotid bruits, or thyromegaly. CHEST EXAMINATION: Trachea is central. Symmetrical expansion. Lungs bilateral clear to auscultation CARDIAC: Normal S1, S2 with no gallops. No murmurs ABDOMEN: Soft. Bowel sounds normal. No organomegaly. No abdominal bruits. Extremities: reveal no edema. No clubbing or cyanosis Neurologically awake, alert, oriented x3 with well-coordinated movements. No focal deficits noted Skin: No rash or skin lesions. Psychiatric: Cooperative. Nonsuicidal Musculoskeletal: No joint swelling or deformity. Normal range of motion. - Labs CBC & Chem 7: 01/25/17 07:21 01/25/17 07:21 Labs: Abnormal Lab Results - Last 24 Hours (Table) 01/24/17 01/25/17 01/25/17 Range/Units 21:18 07:08 07:21 WBC 11.1 H (3.8-10.6) k/uL RBC 3.42 L (3.80-5.40) m/uL Hgb 10.3 L (11.4-16.0) gm/dL Hct 32.6 L (34.0-46.0) % RDW 17.8 H (11.5-15.5) % Neutrophils # (Manual) 7.80 H (1.3-7.7) k/uL Sodium (137-145) mmol/L BUN (7-17) mg/dL Creatinine (0.52-1.04) mg/dL Glucose (74-99) mg/dL POC Glucose (mg/dL) 196 H 182 H (75-99) mg/dL 01/25/17 01/25/17 01/25/17 Range/Units 07:21 11:24 17:14 WBC (3.8-10.6) k/uL RBC (3.80-5.40) m/uL Hgb (11.4-16.0) gm/dL Hct (34.0-46.0) % RDW (11.5-15.5) % Neutrophils # (Manual) (1.3-7.7) k/uL Sodium 136 L (137-145) mmol/L BUN 28 H (7-17) mg/dL Creatinine 5.88 H* (0.52-1.04) mg/dL Glucose 201 H (74-99) mg/dL POC Glucose (mg/dL) 259 H 325 H (75-99) mg/dL Microbiology - Last 24 Hours (Table) 01/18/17 22:00 Blood Culture - Final Blood No Growth after 144 hours 01/18/17 16:32 Blood Culture - Final Blood No Growth after 144 hours Assessment and Plan Assessment: #1 fever with sepsis. Possible septicemia with positive blood cultures at dialysis center. Influenza negative. Chest x-ray showed fluid overload no infiltrates noted. Urine culture was ordered. Showed Linda species. Patient does not have any cough or sputum production. Blood cultures showed no growth. Currently patient is afebrile. C. diff toxin negative. Antibiotics changed to meropenem from ceftazidime. Repeat cultures showed no growth. Patient responded very well with antibiotics and clinically much improved now. #2 altered mental status/metabolic encephalopathy likely due to infection and electrolyte abnormality. Improving #2 acute hypoxic respiratory failure secondary to fluid overload. #2 acute on chronic CHF with diastolic dysfunction due to fluid overload. #3 mild DKA. Patient was started on insulin drip. AG-16 and a acetone positive. Resolving now #2 recent Dark colored stools due to GI bleed. Hemoglobin 7.9 on admission. Will follow H&H. Coumadin on hold now. #2 paroxysmal atrial fibrillation on anticoagulation with Coumadin #3 ESRD on hemo-dialysis. Left AV graft. Thursday was decided #3 history of coronary artery disease status post stent placement #5. Anemia of chronic disease on epogen. Status post 1 unit PRBC transfusion on 01/19 #6 elevated troponin level. Unlikely acute [place] #7 diabetes type 2 uncontrolled with A1c 8.4 #8 hypertension #9 history of GI bleed in November 2015. Status post coloscopy and found to have AVM Plan: Patient will be getting hemodialysis on Thursday. Chest x-ray showed much improvement. Insulin drip was discontinued and currently on insulin regimen.. We will continue the antibiotics in the form of vancomycin and ceftazidime---> meropenem.. Blood cultures negative so far. Urine culture showed Linda. ID is following Nephrology is on board. Will monitor H&H. Further recommendations based on the clinical course. Prognosis is guarded with multiple medical problems and comorbid conditions discussed with family in detail at bedside. Possible discharged to rehab on Thursday.
[2017-01-26 07:16] LABS: Glucose,Whole Blood 179 mg/dL (75-99)
[2017-01-26 07:22] VITALS: BP 108/41; PULSE 83; RESP 18; TEMP 98.3
[2017-01-26] MEDS: INSULIN ASPART 100 UNIT/ML 1 ML 10 ML VIAL SQ SCH ×2 (08:06→12:45)
[2017-01-26] MEDS: AMIODARONE 200 MG TAB PO SCH (11:07)
[2017-01-26] MEDS: SEVELAMER 800 MG TAB PO SCH ×2 (11:07→11:12)
[2017-01-26] MEDS: ASPIRIN 81 MG PO SCH (11:08)
[2017-01-26] MEDS: amLODIPine 5 MG TAB PO SCH (11:08)
[2017-01-26] MEDS: METOPROLOL SUCCINATE (ER) 50 MG TAB.ER.24H PO SCH (11:08)
[2017-01-26] MEDS: GABAPENTIN 100 MG CAP PO SCH ×2 (11:08→14:51)
[2017-01-26] MEDS: FOLIC ACID-VIT B COMPLEX-VIT C 1 CAP PO SCH (11:08)
[2017-01-26] MEDS: CLOPIDOGREL 75 MG TAB PO SCH (11:08)
[2017-01-26] MEDS: POTASSIUM CHLORIDE ORAL LIQUID 40 MEQ/30 ML CUP PO SCH (11:09)
[2017-01-26] MEDS: MIDODRINE 5 MG TAB PO SCH (11:09)
[2017-01-26 12:22] LABS: Glucose,Whole Blood 137 mg/dL (75-99)
--- NOTE | 2017-01-26 14:44 | P.DS ---
Providers Date of admission: 01/15/17 16:56 Expected date of discharge: 01/26/17 Attending physician: Tiana Cornell Consults: 01/15/17 16:56 Consult Physician Routine Consulting Provider: Stefania Zhu Consult Reason/Comments: known Do you want consulting provider notified?: Yes 01/16/17 19:59 Consult Physician Routine Consulting Provider: Rolando Ramirez Consult Reason/Comments: Central Line placement Do you want consulting provider notified?: Yes 01/17/17 12:33 Consult Physician Urgent Consulting Provider: Hien Wood Consult Reason/Comments: fevers, sepsis Do you want consulting provider notified?: Yes Primary care physician: Jossie Rubio [place] [facility] Course: Discharge diagnosis #1 fever with sepsis. septicemia with positive blood cultures at dialysis center. Influenza negative. Chest x-ray showed fluid overload no infiltrates noted. Urine culture was ordered. Showed Linda species. Patient does not have any cough or sputum production. Blood cultures showed no growth. Currently patient is afebrile. C. diff toxin negative. Antibiotics changed to meropenem from ceftazidime. Repeat cultures showed no growth. Patient responded very well with antibiotics and clinically much improved now. Patient completed antibiotic course while in the hospital. #2 altered mental status/metabolic encephalopathy likely due to infection and electrolyte abnormality. Improved #2 acute hypoxic respiratory failure secondary to fluid overload. #2 acute on chronic CHF with diastolic dysfunction due to fluid overload. #3 mild DKA. Patient was started on insulin drip. AG-16 and a acetone positive. Resolved #2 recent Dark colored stools due to GI bleed. Hemoglobin 7.9 on admission. Will follow H&H. Coumadin on hold now. #2 paroxysmal atrial fibrillation on anticoagulation with Coumadin #3 ESRD on hemo-dialysis. Left AV graft. MWF #3 history of coronary artery disease status post stent placement #5. Anemia of chronic disease on epogen. Status post 1 unit PRBC transfusion on 01/19 #6 elevated troponin level. Unlikely acute NH #7 diabetes type 2 uncontrolled with A1c 8.4 #8 hypertension #9 history of GI bleed in November 2015. Status post coloscopy and found to have AVM Hospital course Patient is a 56-year-old female with a past medical history of ESRD on hemodialysis MWF via AV graft, hypertension, diabetes type 2 history of coronary disease and recently diagnosed atrial fibrillation and was started on anticoagulation with Coumadin presented to the ER due to altered mental status. Patient had hemodialysis last night. Patient was supposed to be confused at the time. Patient woke up next morning with more confusion and also noted to have fevers. Patient's family member says that blood culture set dialysis Center showed infection and patient was sent to Hospital. Otherwise patient seems to be lethargic and confused but oriented 2. Denied any complaints of chest pain or short of breath. No nausea or nausea vomiting or diarrhea. Patient had one episode of diarrhea and C. diff was sent. 01/16 afternoon patient became more confused and shortness of breath requiring oxygen. Patient was placed on Ventimask and repeat labs were attempted but could not get IV access. Patient was placed on telemetry monitoring and ABGs will be obtained. Patient had hemodialysis today. Chest x-ray on admission showed fluid overload BNP greater than 80,000 on admission. Patient was recently admitted to the hospital with a GI bleed/darker stools. Patient was started back on anti-coagulation after a week and current hemoglobin is 7.9. Otherwise patient does not have any fever or chills now . Blood cultures were sent. No leukocytosis noted. Patient was found to have hyperglycemia and was started on insulin drip. Her gap 23 and bicarbonate 19. Acetone positive. 01/17/2017 Patient seems to be confused on and off. Patient currently is to be febrile today. Blood cultures are negative so far. Patient denied any worsening short of breath. No complaints of chest pain. No diarrhea no abdominal pain. Anion gap closed. Insulin drip has been discontinued. Patient will be transferred to MICU due to patient condition of fever and altered mental status. 01/18/2017 Patient was improving clinically decreased orientation but today morning patient became febrile again. Blood cultures is negative so far. Patient was on vancomycin and ceftazidime. Ceftazidime was changed to meropenem as widely recommendations. Patient is still having mild DKA. Patient did have hemodialysis today with 2 l ultrafiltration. Chest x-ray showed improvement in CHF . Patient denied any short of breath. No complaints of chest pain. No nausea vomiting or abdominal pain. 01/19/2017 Patient is more awake and oriented today. Fever improved. Continue on antibiotics in the form of vancomycin and meropenem. ID and pulmonary is on board. Patient denied any complaints of chest pain or short of breath. No nausea vomiting. Hemoglobin found to be 6.1 and will be getting 1 unit PRBC during hemodialysis today. 01/20/2017 Patient is more awake and oriented today. Patient did have hemodialysis. Urine culture showed Linda species. Chest x-ray showed improved air space disease. Patient did have low-grade fever otherwise no complaints of chest pain or short of breath. No nausea vomiting or abdominal pain. 01/21/2017 Patient is awake and oriented 3. Today patient isn't complaining of bilateral thigh pain. No swelling or redness noted. Otherwise patient denied any chest pain or short of breath. Patient has been afebrile today. Chest x-ray showed improvement CHF and correlate for pneumonia. Otherwise patient denied any new complaints. Patient is being transferred to general medical floor. 01/23/2017 Patient is more awake and oriented. Patient has been talking to herself sometimes. Otherwise patient denied any chest pain. No worsening short of breath. Patient has been afebrile. Patient underwent hemodialysis today. No fever or chills. Patient is still requiring oxygen therapy. 01/24/2017 Patient was a bit confused during dialysis today. Otherwise patient is more awake and oriented 3 at this time. No complaints of chest pain or shortness of breath. Bilateral leg soreness improved. Patient was able to sit in the chair yesterday. We'll continue the physical therapy and possible rehab transfer on Thursday. Chest x-ray showed resolving congestive heart failure. 01/25/2017 Patient is more awake and oriented today. Able to sit in the chair. Still complaining of bilateral thigh soreness.otherwise no fever no chills no acute overnight issues. Patient will be getting hemodialysis tomorrow. No complaints of chest pain or short of breath. Patient was continued on hemodialysis due to fluid overload which has much improved now. Patient is to be continued hemodialysis Thursday as per schedule. Patient was on, Insulin drip was discontinued and currently on insulin regimen.. Continued antibiotics in the form of vancomycin and ceftazidime---> meropenem.. Blood cultures negative so far. Urine culture showed Linda. ID and pulmonary and nephrology has seen the patient was in the hospital. Patient's Coumadin is on hold due to recent GI bleed and anemia. Coumadin supposed to be started back next 1 week and monitor for any bleeding further. Patient is currently sitting on the chair comfortably but having generalized weakness and lower extremity weakness Otherwise patient is stable to be discharged to rehab. PHYSICAL EXAMINATION: Patient is lying in the bed comfortably, no acute distress, awake alert and oriented.. No confusion today HEENT: Normocephalic. Neck is supple. Pupils reactive. Nostrils clear. Oral cavity is moist. Ears reveal no drainage. Neck reveals no JVD, carotid bruits, or thyromegaly. CHEST EXAMINATION: Trachea is central. Symmetrical expansion. Minimal basilar crackles. No wheezing or rhonchi CARDIAC: Normal S1, S2 with no gallops. No murmurs ABDOMEN: Soft. Bowel sounds normal. No organomegaly. No abdominal bruits. Extremities: reveal no edema. No clubbing or cyanosis Neurologically awake, alert, oriented x3 with well-coordinated movements. No focal deficits noted Skin: No rash or skin lesions. Psychiatric: Coperative. Nonsuicidal Musculoskeletal: No joint swelling or deformity. Normal range of motion. Total time taken greater than 35 minutes including 18 minutes for counseling and coordination of care. Patient Condition at Discharge: Fair Plan - Discharge Summary Discharge Rx Participant: No New Discharge Prescriptions: New Albuterol Nebulized [Ventolin Nebulized] 2.5 mg INHALATION RT-BID PRN nebu PRN Reason: Shortness Of Breath Amiodarone [Cordarone] 200 mg PO BID tab guaiFENesin SYRUP 100MG/5ML [Robitussin] 200 mg PO TID PRN cup PRN Reason: Cough Acetaminophen Tab [Tylenol] 650 mg PO Q6HR PRN tab PRN Reason: Fever And/ Or Pain Continue Clopidogrel [Plavix] 75 mg PO DAILY tab Atorvastatin [Lipitor] 40 mg PO HS Insulin Aspart [NovoLOG Flexpen] See Protocol SQ AC-TID Sevelamer [Renvela] 2,400 mg PO AC-TID amLODIPine [Norvasc] 5 mg PO DAILY Nitroglycerin Sl Tabs [Nitrostat] 0.4 mg SUBLINGUAL Q5M PRN PRN Reason: Chest Pain Folic Acid-Vit B Complex-Vit C [Nephrocaps] 1 cap PO DAILY Aspirin EC [Ecotrin Low Dose] 81 mg PO DAILY Metoprolol Succinate (ER) [Toprol XL] 50 mg PO DAILY Darbepoetin Doroteo [Aranesp] 40 mcg SQ Q7D syr Insulin Glargine,Hum.rec.anlog [Lantus Solostar] 38 unit SQ HS Warfarin [Coumadin] 5 mg PO HS@1800 Gabapentin [Neurontin] 100 mg PO TID Midodrine [ProAmatine] 5 mg PO MoWeFr@0900 tab ALPRAZolam [Xanax] 0.25 mg PO HS PRN #5 tablet PRN Reason: Insomnia Changed Furosemide [Lasix] 40 mg PO BID #0 Discontinued Albuterol Inhaler [Ventolin Hfa Inhaler] 1 puff INHALATION RT-BID PRN PRN Reason: Shortness Of Breath Spironolactone [Aldactone] 25 mg PO DAILY #30 tab Discharge Medication List Clopidogrel [Plavix] 75 mg PO DAILY tab 02/16/16 [Rx] Atorvastatin [Lipitor] 40 mg PO HS 07/16/16 [History] Insulin Aspart [NovoLOG Flexpen] See Protocol SQ AC-TID 07/16/16 [History] Aspirin EC [Ecotrin Low Dose] 81 mg PO DAILY 10/30/16 [History] Folic Acid-Vit B Complex-Vit C [Nephrocaps] 1 cap PO DAILY 10/30/16 [History] Nitroglycerin Sl Tabs [Nitrostat] 0.4 mg SUBLINGUAL Q5M PRN 10/30/16 [History] Sevelamer [Renvela] 2,400 mg PO AC-TID 10/30/16 [History] amLODIPine [Norvasc] 5 mg PO DAILY 10/30/16 [History] Metoprolol Succinate (ER) [Toprol XL] 50 mg PO DAILY 11/26/16 [History] Darbepoetin Doroteo [Aranesp] 40 mcg SQ Q7D syr 12/01/16 [Rx] Insulin Glargine,Hum.rec.anlog [Lantus Solostar] 38 unit SQ HS 01/01/17 [History ] Warfarin [Coumadin] 5 mg PO HS@1800 01/01/17 [History] Gabapentin [Neurontin] 100 mg PO TID 01/02/17 [History] Midodrine [ProAmatine] 5 mg PO MoWeFr@0900 tab 01/05/17 [Rx] ALPRAZolam [Xanax] 0.25 mg PO HS PRN #5 tablet 01/26/17 [Rx] Acetaminophen Tab [Tylenol] 650 mg PO Q6HR PRN tab 01/26/17 [Rx] Albuterol Nebulized [Ventolin Nebulized] 2.5 mg INHALATION RT-BID PRN nebu [Rx] Amiodarone [Cordarone] 200 mg PO BID tab 01/26/17 [Rx] Furosemide [Lasix] 40 mg PO BID #0 01/26/17 [Rx] guaiFENesin SYRUP 100MG/5ML [Robitussin] 200 mg PO TID PRN cup 01/26/17 [Rx] Follow up Appointment(s)/Referral(s): Ramiro Sethi MD [Primary Care Provider] - 3 Days Thomas Damon DO [STAFF PHYSICIAN] - 1 Week Patient Instructions/Handouts: Heart Failure (DC), Type 2 Diabetes in Adults ( DC) Activity/Diet/Wound Care/Special Instructions: Hold coumadin x 1 week, then resume as per PCP. COmpleted antibx. regime as per ID. DIet: renal, consist. carb activity: as tolerated cbc, bmp in 3 days Discharge Disposition: TRANSFER TO SNF/ECF
[2017-01-26] MEDS: MEROPENEM 1 GM in SODIUM CHLORIDE 0.9% 100 ML IVPB SCH (14:50)
[2017-01-26 17:19] LABS: Glucose,Whole Blood 159 mg/dL (75-99)
--- NOTE | 2017-01-26 23:54 | PN ---
PROGRESS NOTE Patient was seen this morning. She is comfortable, awake. She is not in any acute distress. She had dialysis this morning with UF of about 2.5 L. EXAMINATION: Blood pressure was 108/41, heart rate 83 per minute. She is afebrile. Examination of the heart S1, S2. Examination lungs decreased breath sounds at bases with basal crackles heard. Abdomen is soft, nontender. Examination lower extremities show no evidence of edema. LABS: Not available from today. Potassium was 5.1 yesterday. ASSESSMENT: 1. End-stage renal disease, on hemodialysis on a Thursday, Thursday, Thursday schedule. 2. Fluid overload, slowly improving. 3. Fever/sepsis, source still remains unclear, status post antibiotics. 4. Altered mentation, now improved, most likely secondary to underlying infection. PLAN: Patient can be discharged. We will try to arrange treatments for ultrafiltration as an outpatient. MMODL / IJN: [id number] /
== END 2017-01-26 17:20 | DRG 871 ==
LOC: EC 13:58 → 4MS4W 16:56 → 6SEL 01-16 16:38 → 6ICU 01-17 13:03 → 4MS4W 01-21 18:02
PROVIDERS: ADMIT Hospitalist; ATTEND Hospitalist
PROC: 5A1D70Z Performance of Urinary Filtration, Intermittent, Less than 6 Hours Per Day (ICD-10-PCS; principal; 2017-01-17)
PROC: 06HM33Z Insertion of Infusion Device into Right Femoral Vein, Percutaneous Approach (ICD-10-PCS; 2017-01-18)
PROC: 30233N1 Transfusion of Nonautologous Red Blood Cells into Peripheral Vein, Percutaneous Approach (ICD-10-PCS; 2017-01-19)
DX: A41.9 Sepsis, unspecified organism (principal); E11.10 Type 2 diabetes mellitus with ketoacidosis without coma; J96.01 Acute respiratory failure with hypoxia; G93.41 Metabolic encephalopathy; I50.43 Acute on chronic combined systolic (congestive) and diastolic (congestive) heart failure; N18.6 End stage renal disease; I13.2 Hypertensive heart and chronic kidney disease with heart failure and with stage 5 chronic kidney disease, or end stage renal disease; E11.22 Type 2 diabetes mellitus with diabetic chronic kidney disease; E11.51 Type 2 diabetes mellitus with diabetic peripheral angiopathy without gangrene; E87.70 Fluid overload, unspecified; E83.9 Disorder of mineral metabolism, unspecified; I48.0 Paroxysmal atrial fibrillation; E83.39 Other disorders of phosphorus metabolism; E78.5 Hyperlipidemia, unspecified; D63.1 Anemia in chronic kidney disease; E87.6 Hypokalemia; I25.10 Atherosclerotic heart disease of native coronary artery without angina pectoris; I34.0 Nonrheumatic mitral (valve) insufficiency; K21.9 Gastro-esophageal reflux disease without esophagitis; K57.90 Diverticulosis of intestine, part unspecified, without perforation or abscess without bleeding; M19.90 Unspecified osteoarthritis, unspecified site; R74.8 Abnormal levels of other serum enzymes; R32 Unspecified urinary incontinence; H91.90 Unspecified hearing loss, unspecified ear; Z76.82 Awaiting organ transplant status; Z79.01 Long term (current) use of anticoagulants; Z79.02 Long term (current) use of antithrombotics/antiplatelets; Z79.4 Long term (current) use of insulin; Z79.899 Other long term (current) drug therapy; Z79.82 Long term (current) use of aspirin; Z99.2 Dependence on renal dialysis; Z95.5 Presence of coronary angioplasty implant and graft; Z87.891 Personal history of nicotine dependence; Z91.041 Radiographic dye allergy status; Z88.0 Allergy status to penicillin; Z91.013 Allergy to seafood
CPT/HCPCS: 36415; 36600; 51798; 70450; 71010; 71020; 74020; 80048; 80053; 80202; 81001; 82009; 82140; 82272; 82550; 82553; 82728; 82805; 83036; 83540; 83550; 83605; 83735; 83880; 84100; 84484; 85025; 85610; 85730; 86850; 86870; 86880; 86900; 86901; 86902; 86920; 87040; 87086; 87324; 87502; 90935; 93005; 94640; 94760; 96360; 99285

== ENCOUNTER 2017-02-15 21:42 | Observation (INO) | payer MEDICARE, BC ==
[2017-02-15] MEDS ORDERED: PANTOPRAZOLE 40 MG/10 ML VIAL IVP STA (21:54)
--- NOTE | 2017-02-15 21:57 | ED ---
General Adult HPI - General Chief complaint: GI Bleed Stated complaint: GI bleed Time Seen by Provider: 02/15/17 21:45 Source: patient, EMS, RN notes reviewed Mode of arrival: EMS Limitations: no limitations - History of Present Illness Initial comments: Patient is a pleasant 57-year-old female presenting to the emergency Department with rectal bleeding. Onset was just today. Patient had loose stool with streaks of bright red blood. Patient states there may be some mild left lower abdominal discomfort. Patient does admit to having some mild difficulty breathing. Patient is on Coumadin for atrial fibrillation. Patient was recently in the hospital a month ago or less for similar problems. - Related Data Home Medications Medication Instructions Recorded Confirmed Aspirin EC [Ecotrin Low Dose] 81 mg PO DAILY@1700 10/30/16 02/15/17 Folic Acid-Vit B Complex-Vit C 1 cap PO DAILY@1700 10/30/16 02/15/17 [Nephrocaps] Nitroglycerin Sl Tabs [Nitrostat] 0.4 mg SUBLINGUAL Q5M PRN 10/30/16 02/15/17 Sevelamer [Renvela] 2,400 mg PO AC-TID@07,11,1730 10/30/16 02/15/17 Metoprolol Succinate (ER) [Toprol 50 mg PO DAILY 11/26/16 02/15/17 XL] Insulin Glargine,Hum.rec.anlog 38 unit SQ HS@2130 01/01/17 02/15/17 [Lantus Solostar] Warfarin [Coumadin] 5 mg PO SUMOTHFRSA@1700 01/01/17 02/15/17 Gabapentin [Neurontin] 100 mg PO TID@0600,1400,2100 01/02/17 02/15/17 Albuterol Nebulized [Ventolin 2.5 mg INHALATION RT-QID PRN 02/15/17 02/15/17 Nebulized] Amiodarone [Cordarone] 200 mg PO BID@0800,1700 02/15/17 02/15/17 Atorvastatin [Lipitor] 40 mg PO HS 02/15/17 02/15/17 Bisacodyl [Dulcolax] 10 mg RECTAL ONCE PRN 02/15/17 02/15/17 Clopidogrel [Plavix] 75 mg PO DAILY 02/15/17 02/15/17 Darbepoetin Doroteo [Aranesp] 40 mcg SQ MO 02/15/17 02/15/17 Ergocalciferol [Vitamin D2] 50,000 unit PO Q30D 02/15/17 02/15/17 Furosemide [Lasix] 40 mg PO BID@0600,1400 02/15/17 02/15/17 Hydrocodone/Acetaminophen [[place] 1 tab PO Q6HR PRN 02/15/17 02/15/17 7.5-325] Insulin Aspart [NovoLOG] See Protocol SQ AC-TID@07,11,1730 02/15/17 02/15/17 Magnesium Hydroxide [Milk of 2,400 mg PO DAILY PRN 02/15/17 02/15/17 Magnesia] Menthol/Zinc Oxide [Calmoseptine 1 applic TOPICAL BID 02/15/17 02/15/17 Ointment] Midodrine HCl [ProAmatine] 10 mg PO MOWEFR@0600 02/15/17 02/15/17 Na Phos,M-B/Na Phos,Di-Ba [Fleet 133 ml RECTAL ONCE PRN 02/15/17 02/15/17 Adult] Sodium Chloride [Kathleen] 1 spray EA NOSTRIL BID PRN 02/15/17 02/15/17 Warfarin Sodium [Coumadin] 7.5 mg PO TUWE@1700 02/15/17 02/15/17 Previous Rx's Medication Instructions Recorded ALPRAZolam [Xanax] 0.25 mg PO HS PRN #5 tablet 01/26/17 Acetaminophen Tab [Tylenol] 650 mg PO Q6HR PRN tab 01/26/17 guaiFENesin SYRUP 100MG/5ML 200 mg PO TID PRN cup 01/26/17 [Robitussin] Allergies Allergy/AdvReac Type Severity Reaction Status Date / Time clonidine Allergy Anaphylaxis Verified 02/15/17 22:34 Iodinated Contrast- Oral and Allergy Anaphylaxis Verified 02/15/17 22:34 IV Dye iodine Allergy Anaphylaxis Verified 02/15/17 22:34 Penicillins Allergy Rash/Hives Verified 02/15/17 22:34 shellfish derived Allergy Anaphylaxis Verified 02/15/17 22:34 Review of Systems ROS Statement: Those systems with pertinent positive or pertinent negative responses have been documented in the HPI. ROS Other: All systems not noted in ROS Statement are negative. Constitutional: Denies: fever Eyes: Denies: eye pain ENT: Denies: ear pain Respiratory: Reports: dyspnea. Denies: cough Cardiovascular: Denies: chest pain Endocrine: Denies: fatigue Gastrointestinal: Reports: abdominal pain, hematochezia Genitourinary: Denies: dysuria Musculoskeletal: Denies: back pain Skin: Denies: rash Neurological: Denies: weakness Past Medical History Past Medical History: Atrial Fibrillation, Coronary Artery Disease (CAD), Heart Failure, CVA/TIA, Diabetes Mellitus, GERD/Reflux, GI Bleed, Hyperlipidemia, Osteoarthritis (OA), Pneumonia, Renal Disease, Vascular Disorder Additional Past Medical History / Comment(s): Coronary artery disease, preserved LV function with an ejection fraction of 55% and moderate degree of MR , IDDM type II, End stage renal failure with hemodialysis MWF-on kidney transplant list thru [facility], CVA 2007 with some peripheral vision problems R eye and R ear PICAYUNE, lower GI bleed, PAD, DJD, diverticulosis, pancreatitis, bronchitis, TMJ, sinus problems at times, UTIs, benign polypectomies, anemia. History of Any Multi-Drug Resistant Organisms: None Reported Past Surgical History: Cholecystectomy, Heart Catheterization, Heart Catheterization With Stent, Hysterectomy Additional Past Surgical History / Comment(s): L upper arm for dialysis cath, 3 Cardiac stents, one stent rt leg, EGD/colonoscopies/benign polypectomies , bilateral cataract removal, laser sx bilateral eyes for retinopathy, D&C, left axillary I&D Past Anesthesia/Blood Transfusion Reactions: Motion Sickness, Postoperative Nausea & Vomiting (PONV) Additional Past Anesthesia/Blood Transfusion Reaction / Comment(s): Pt has received blood in the past without reaction. Date of Last Stent Placement:: 09/22/13 Past Psychological History: No Psychological Hx Reported Smoking Status: Former smoker Past Alcohol Use History: Occasional Past Drug Use History: None Reported - Past Family History Mother Family Medical History: No Reported History Additional Family Medical History / Comment(s): Mother is 76 yrs old. Father Family Medical History: Diabetes Mellitus Additional Family Medical History / Comment(s): Father at the age of 42yrs- pt does not know reason. General Exam Limitations: no limitations General appearance: alert, in no apparent distress Head exam: Present: atraumatic Eye exam: Present: normal appearance Neck exam: Present: normal inspection Respiratory exam: Present: normal lung sounds bilaterally Cardiovascular Exam: Present: regular rate, normal rhythm. Absent: irregular rhythm GI/Abdominal exam: Present: soft. Absent: distended, tenderness, guarding, rebound, rigid, pulsatile mass Rectal exam: Present: normal rectal tone, bloody stool Extremities exam: Present: other (Dialysis graft left arm) Back exam: Present: normal inspection Neurological exam: Present: alert Psychiatric exam: Present: normal affect, normal mood Skin exam: Present: normal color Course Vital Signs 02/15/17 02/15/17 21:43 22:22 Temperature 98.6 F Pulse Rate 86 81 Respiratory 18 18 Rate Blood Pressure 210/86 191/88 O2 Sat by Pulse 90 L 100 Oximetry - Reevaluation(s) Reevaluation #1: 02/16/17 00:43 Note will be placed not to use White line on the central line. EKG Findings - EKG Comments: EKG Findings:: Normal sinus rhythm 84. WA 156. QRS 96. QT 424. QTC 501. Normal axis. Normal QRS. No acute ST change. Procedures - Central Line Placement Right Femoral Consent Obtained: verbal consent (Patient requests right inguinal), written consent Time Out Performed: Yes MD Prep: mask, gown, gloves Central Line Prep: Chlorhexidine scrub Local Anesthesia Used: Lidocaine 1% Amount of Anesthesia Used (mls): 1 Ultrasound Used for Placement: No Central Line Lumen Inserted: triple Bloods Obtained for Lab: Yes Central Line Position: good blood return (White port only did not return blood or allow injection), all ports aspirated, flushed, capped (Unable to aspirate from White port), sutured in place with nylon Dressing Applied: Tegaderm Patient Tolerated Procedure: well Complications: none Medical Decision Making - Medical Decision Making Patient was reevaluated and updated. Patient given vitamin K for coagulopathy. Case was discussed with practitioner Karo matamoros, who will admit for Dr. Cornell , covering for Dr. Fuentes. GI will be consulted. - Lab Data Result diagrams: 02/15/17 23:28 02/15/17 00:40 Lab Results 02/15/17 02/15/17 02/15/17 Range/Units 00:40 22:20 23:28 WBC 11.3 H (3.8-10.6) k/uL RBC 3.71 L (3.80-5.40) m/uL Hgb 11.3 L (11.4-16.0) gm/dL Hct 38.2 (34.0-46.0) % MCV 102.8 H D (80.0-100.0) fL MCH 30.4 (25.0-35.0) pg MCHC 29.6 L (31.0-37.0) g/dL RDW 24.8 H (11.5-15.5) % Plt Count 264 (150-450) k/uL Neutrophils % 74 % Lymphocytes % 15 % Monocytes % 6 % Eosinophils % 4 % Basophils % 1 % Neutrophils # 8.4 H (1.3-7.7) k/uL Lymphocytes # 1.7 (1.0-4.8) k/uL Monocytes # 0.7 (0-1.0) k/uL Eosinophils # 0.4 (0-0.7) k/uL Basophils # 0.1 (0-0.2) k/uL Manual Slide Review Performed Polychromasia Present Hypochromasia Marked Poikilocytosis Slight Poikilocytosis (manual Present Anisocytosis Marked Anisocytosis (manual) Present Macrocytosis Marked PT (9.0-12.0) sec INR (<1.2) APTT (22.0-30.0) sec Sodium 144 (137-145) mmol/L Potassium 4.5 (3.5-5.1) mmol/L Chloride 102 (98-107) mmol/L Carbon Dioxide 32 H (22-30) mmol/L Anion Gap 10 mmol/L BUN 66 H (7-17) mg/dL Creatinine 10.00 H* (0.52-1.04) mg/dL Est GFR (MDRD) Af Amer 5 (>60 ml/min/1.73 sqM) Est GFR (MDRD) Non-Af 4 (>60 ml/min/1.73 sqM) Glucose 87 (74-99) mg/dL Calcium 9.6 (8.4-10.2) mg/dL Total Bilirubin 0.5 (0.2-1.3) mg/dL AST 27 (14-36) U/L ALT 35 (9-52) U/L Alkaline Phosphatase 101 (38-126) U/L Total Creatine Kinase (30-135) U/L CK-MB (CK-2) (0.0-2.4) ng/mL CK-MB (CK-2) Rel Index Troponin I (0.000-0.034) ng/mL Total Protein 6.1 L (6.3-8.2) g/dL Albumin 3.2 L (3.5-5.0) g/dL Stool Occult Blood Positive H (Negative) Blood Type Blood Type Recheck Antibody Screen Spec Expiration Date 02/16/17 02/16/17 02/16/17 Range/Units 00:40 00:40 00:40 WBC (3.8-10.6) k/uL RBC (3.80-5.40) m/uL Hgb (11.4-16.0) gm/dL Hct (34.0-46.0) % MCV (80.0-100.0) fL MCH (25.0-35.0) pg MCHC (31.0-37.0) g/dL RDW (11.5-15.5) % Plt Count (150-450) k/uL Neutrophils % % Lymphocytes % % Monocytes % % Eosinophils % % Basophils % % Neutrophils # (1.3-7.7) k/uL Lymphocytes # (1.0-4.8) k/uL Monocytes # (0-1.0) k/uL Eosinophils # (0-0.7) k/uL Basophils # (0-0.2) k/uL Manual Slide Review Polychromasia Hypochromasia Poikilocytosis Poikilocytosis (manual Anisocytosis Anisocytosis (manual) Macrocytosis PT 37.9 H (9.0-12.0) sec INR 4.2 H (<1.2) APTT 35.7 H (22.0-30.0) sec Sodium (137-145) mmol/L Potassium (3.5-5.1) mmol/L Chloride (98-107) mmol/L Carbon Dioxide (22-30) mmol/L Anion Gap mmol/L BUN (7-17) mg/dL Creatinine (0.52-1.04) mg/dL Est GFR (MDRD) Af Amer (>60 ml/min/1.73 sqM) Est GFR (MDRD) Non-Af (>60 ml/min/1.73 sqM) Glucose (74-99) mg/dL Calcium (8.4-10.2) mg/dL Total Bilirubin (0.2-1.3) mg/dL AST (14-36) U/L ALT (9-52) U/L Alkaline Phosphatase (38-126) U/L Total Creatine Kinase 36 (30-135) U/L CK-MB (CK-2) 1.2 (0.0-2.4) ng/mL CK-MB (CK-2) Rel Index 3.3 Troponin I 0.015 (0.000-0.034) ng/mL Total Protein (6.3-8.2) g/dL Albumin (3.5-5.0) g/dL Stool Occult Blood (Negative) Blood Type A Positive Blood Type Recheck No Antibody Screen POSITIVE Spec Expiration Date 02/19/2017 - 2340 - Radiology Data Radiology results: image reviewed (Chest x-ray shows some chronic heart failure. Abdominal x-ray shows no acute process.) Disposition Clinical Impression: Bleeding on Coumadin, GI bleed Disposition: ADMITTED IP TO THIS HOSP Referrals: Ramiro Sethi MD [Primary Care Provider] - 1-2 days
--- NOTE | 2017-02-15 22:57 | XR ---
EXAMINATION TYPE: XR chest 2V DATE OF EXAM: 02/15/2017 COMPARISON: 01/24/2017 HISTORY: Chest pain TECHNIQUE: Frontal and lateral views of the chest are obtained. FINDINGS: There is pulmonary interstitial edema. Heart is enlarged. There are chest leads. Thoracic aorta is atheromatous. There is blunting of costophrenic angles. IMPRESSION: There is congestive heart failure that appears new compared to last exam. Small pleural effusions.
--- NOTE | 2017-02-15 22:59 | XR ---
EXAMINATION TYPE: XR KUB DATE OF EXAM: 02/15/2017 COMPARISON: 01/19/2017 HISTORY: Chest pain. Blood in the stool. TECHNIQUE: 2 views FINDINGS: There is no sign of intestinal obstruction or pneumoperitoneum. Fecal pattern is normal. Th ere are clips from cholecystectomy. There is no sign of a mass. There are faint calcifications over t he left kidney. There are phleboliths in the pelvis. IMPRESSION: Nonacute abdomen. No adverse change compared to old exam.
[2017-02-15 23:53] LABS: Anisocytosis Marked; Basophils # (A) 0.1 k/uL (0-0.2); Basophils % (A) 1 %; Eosinophils # (A) 0.4 k/uL (0-0.7); Eosinophils % (A) 4 %; HCT 38.2 % (34.0-46.0); HGB 11.3 gm/dL (11.4-16.0); Hypochromasia Marked; Lymphocytes # (A) 1.7 k/uL (1.0-4.8); Lymphocytes % (A) 15 %; MCH 30.4 pg (25.0-35.0); MCHC 29.6 g/dL (31.0-37.0); Macrocytosis Marked; Mean Platelet Volume 8.1; Monocytes # (A) 0.7 k/uL (0-1.0); Monocytes % (A) 6 %; Neutrophils # (A) 8.4 k/uL (1.3-7.7); Neutrophils % (A) 74 %; Platelet Count 264 k/uL (150-450); Poikilocytosis Slight; RBC 3.71 m/uL (3.80-5.40); RDW 24.8 % (11.5-15.5); WBC 11.3 k/uL (3.8-10.6)
[2017-02-15 23:55] LABS: MCV 102.8 fL (80.0-100.0)
[2017-02-16 00:19] LABS: Anisocytosis (M) Present; Poikilocytosis (M) Present; Polychromasia Present
[2017-02-16 01:15] LABS: INR 4.2 (<1.2); Partial Thromboplastin Time 35.7 sec (22.0-30.0); Prothrombin Time 37.9 sec (9.0-12.0)
[2017-02-16 01:20] LABS: Albumin 3.2 g/dL (3.5-5.0); Calcium 9.6 mg/dL (8.4-10.2); Potassium 4.5 mmol/L (3.5-5.1); Total Bilirubin 0.5 mg/dL (0.2-1.3); Total Protein 6.1 g/dL (6.3-8.2)
[2017-02-16 01:32] LABS: Creatine Kinase MB 1.2 ng/mL (0.0-2.4); Troponin I 0.015 ng/mL (0.000-0.034)
[2017-02-16] MEDS ORDERED: PHYTONADIONE 10 MG in SODIUM CHLORIDE 0.9% 50 ML IVPB STA (01:35)
[2017-02-16] MEDS ORDERED: NALOXONE 0.4 MG/ML 1 ML VIAL IV PRN (01:58)
[2017-02-16] MEDS: SODIUM CHLORIDE 0.9% 1,000 ML IV SCH (02:32)
[2017-02-16 07:51] LABS: Glucose,Whole Blood 102 mg/dL (75-99)
[2017-02-16 08:08] VITALS: BMI 25.0
[2017-02-16 08:20] LABS: INR 1.6 (<1.2); Prothrombin Time 14.9 sec (9.0-12.0)
[2017-02-16 08:30] LABS: Anisocytosis Moderate; HCT 29.6 % (34.0-46.0); Hypochromasia Marked; MCH 30.7 pg (25.0-35.0); MCHC 30.2 g/dL (31.0-37.0); MCV 101.5 fL (80.0-100.0); Macrocytosis Marked; Mean Platelet Volume 7.8; Platelet Count 310 k/uL (150-450); Poikilocytosis Slight; RBC 2.92 m/uL (3.80-5.40); RDW 23.9 % (11.5-15.5); WBC 9.4 k/uL (3.8-10.6)
[2017-02-16] MEDS: PANTOPRAZOLE 40 MG/10 ML VIAL IV SCH (10:10)
[2017-02-16 10:56] LABS: Band Neutrophils % 2 %; Basophils # (M) 0.09 k/uL (0-0.2); Eosinophils # (M) 0.56 k/uL (0-0.7); Lymphocytes # (M) 1.79 k/uL (1.0-4.8); Monocytes # (M) 0.38 k/uL (0-1.0); Neutrophils % (M) 70 %; Nucleated Red Blood Cells 0 /100 WBC (0-0); Total Cells Counted 200
[2017-02-16 10:57] LABS: Polychromasia Present; Toxic Granulation Present
[2017-02-16 11:49] LABS: Glucose,Whole Blood 229 mg/dL (75-99)
[2017-02-16] MEDS ORDERED: NITROGLYCERIN SL TABS 0.4 MG TAB SUBLINGUAL PRN (13:18)
[2017-02-16] MEDS ORDERED: ACETAMINOPHEN TAB 325 MG TAB PO PRN (13:18)
[2017-02-16] MEDS ORDERED: guaiFENesin SYRUP 100MG/5ML 200 MG/10 ML CUP PO PRN (13:18)
[2017-02-16] MEDS ORDERED: MAGNESIUM HYDROXIDE 2,400 MG/10 ML CUP PO PRN (13:18)
[2017-02-16] MEDS ORDERED: HYDROcodone/APAP 7.5-325MG 1 EACH TAB PO PRN (13:18)
[2017-02-16] MEDS ORDERED: BISACODYL 10 MG SUPP RECTAL PRN (13:18)
[2017-02-16] MEDS ORDERED: SODIUM CHLORIDE 0.65% NASAL SPRAY 44 ML BTL NASAL PRN (13:18)
[2017-02-16] MEDS ORDERED: NA PHOS,M-B/NA PHOS,DI-BA 133 ML ENEMA RECTAL PRN (13:18)
[2017-02-16] MEDS ORDERED: ALPRAZolam 0.25 MG TAB PO PRN (13:18)
[2017-02-16] MEDS ORDERED: ALBUTEROL NEBULIZED 2.5 MG/3 ML INHALATION PRN (13:18)
[2017-02-16] MEDS ORDERED: ERGOCALCIFEROL 50,000 UNIT CAP PO SCH (13:30)
[2017-02-16] MEDS ORDERED: MIDODRINE 5 MG TAB PO STA (16:22)
[2017-02-16] MEDS: FUROSEMIDE 40 MG TAB PO SCH (16:26)
[2017-02-16] MEDS: GABAPENTIN 100 MG CAP PO SCH ×2 (16:48→20:52)
[2017-02-16] MEDS: AMIODARONE 200 MG TAB PO SCH (16:48)
[2017-02-16] MEDS: SEVELAMER 800 MG TAB PO SCH (16:49)
[2017-02-16] MEDS ORDERED: FOLIC ACID-VIT B COMPLEX-VIT C 1 CAP PO SCH (17:00)
[2017-02-16 17:16] LABS: Glucose,Whole Blood 152 mg/dL (75-99)
[2017-02-16] MEDS ORDERED: GELATIN SPONGE,ABSORB (SMALL) 1 EACH SPONGE ONE (17:30)
[2017-02-16] MEDS: INSULIN ASPART 100 UNIT/ML 1 ML 10 ML VIAL SQ SCH ×2 (17:54→20:58)
[2017-02-16] MEDS ORDERED: DARBEPOETIN ALFA 40 MCG/0.4 ML SYRINGE SQ SCH (18:00)
[2017-02-16 18:04] LABS: Anisocytosis Marked; HCT 28.7 % (34.0-46.0); HGB 8.9 gm/dL (11.4-16.0); Hypochromasia Marked; MCHC 30.9 g/dL (31.0-37.0); MCV 100.2 fL (80.0-100.0); Macrocytosis Marked; Mean Platelet Volume 8.3; Platelet Count 287 k/uL (150-450); Poikilocytosis Slight; RBC 2.86 m/uL (3.80-5.40); RDW 24.9 % (11.5-15.5); WBC 10.2 k/uL (3.8-10.6)
--- NOTE | 2017-02-16 18:57 | HP ---
HISTORY AND PHYSICAL DATE OF SERVICE: 02/16/2017. CHIEF COMPLAINT: GI bleed. HISTORY OF PRESENT ILLNESS: This 57-year-old woman with a past medical history of multiple medical problems including atrial ablation, CAD, CVA, diabetes, history of GERD, hypertension, hyperlipidemia being followed by Dr. Sethi in the outpatient setting was recently admitted to [facility] and subsequently patient was referred to rehab for hemodialysis. The patient is on hemodialysis currently. The patient also supposed to have fever and possible sepsis during the admission. In the ECF rehab, the patient is noted to have black-colored stools and the patient taken to [facility] and was admitted for further evaluation. Hemoglobin is 11.3 today, is 9. There is no history of fever, rigors. No history of headache, loss of consciousness or seizures. INR was 4.2, currently is 1.6. On cardiovascular examination, ejection systolic murmur present. ASSESSMENT: 1. Acute lower gastrointestinal bleeding with acute blood loss anemia acute on chronic blood-loss anemia. 2. Chronic renal failure on hemodialysis. 3. Atrial fibrillation. 4. Congestive heart failure. 5. Cerebrovascular accident. 6. Transient ischemic attack. 7. Diabetes type 2. 8. Gastroesophageal reflux disease. 9. History of gastrointestinal bleed. 10.History of degenerative joint disease. 11.History of mitral regurgitation. 12.History of cholecystectomy. 13.History of coronary artery disease, stent. 14.Gait dysfunction. 15.History of colonoscopy and cecal angiodysplasia cauterization previously. RECOMMENDATIONS AND DISCUSSION: In this 57-year-old woman who presented with multiple complex medical issues, we will monitor the patient closely. Continue the current medications. Continue symptomatic treatment. Hemoglobin has dropped slightly. At this time I recommend to continue to monitor further and discuss with Dr. Nobles and if hemoglobin is stable, no further bleeding, patient may be returned to the ECF tomorrow. Otherwise, if there is an indication for bleeding, the patient might need further colonoscopy. As mentioned earlier the patient had the previous colonoscopy CT angio done and angiomatous malformation cauterized by Dr. Nobles a year ago, so the patient might require further colonoscopy as mentioned earlier if the symptoms recur. Otherwise we will continue to monitor. The rest of the medication will continue. Prognosis extremely guarded because of multiple complex medical issues. See orders for details. Further recommendations to follow. MMODL / IJN: [id number] / ALFRED
[2017-02-16] MEDS ORDERED: ATORVASTATIN 40 MG TAB PO SCH (21:00)
[2017-02-16 21:03] LABS: Glucose,Whole Blood 175 mg/dL (75-99)
[2017-02-16] MEDS ORDERED: INSULIN DETEMIR 100 UNIT/ML 10 ML VIAL SQ SCH (21:30)
[2017-02-16] MEDS: MENTHOL-ZINC OXIDE OINT 113 GM TUBE TOPICAL SCH (21:56)
[2017-02-16 22:53] LABS: Hepatitis B Surface AB- Quant 116.6 mIU/mL
--- NOTE | 2017-02-17 00:51 | CONS ---
CONSULTATION DATE OF SERVICE: 02/16/2017. REASON FOR CONSULT: End-stage renal disease. HISTORY: The patient is a 57-year-old female with a history of end-stage renal disease on hemodialysis on a Thursday, , Thursday schedule. She was admitted to the hospital as she was [facility] Patient denies any vomiting of blood. No cough. No fevers or chills. No abdominal pain. Her INR was 4.2, currently it is at 1.6. PAST MEDICAL HISTORY: Significant for end-stage renal disease, recent hospitalization with respiratory failure, pneumonia and febrile illness, history of atrial fibrillation, history of CVA, type 2 diabetes, CKD, mineral bone disorder, gastroesophageal reflux disease. PAST SURGICAL HISTORY: Cholecystectomy, AV graft, cardiac catheterization, coronary stent, colonoscopy, previous cauterization for angiodysplasia. MEDICATIONS: Prior to admission include: 1. Aspirin. 2. Vitamin B. 3. Nitrostat. 4. Renvela. 5. Toprol. 6. Insulin. 7. Cordarone. 8. Neurontin. 9. Coumadin. 10.Lipitor. 11.Dulcolax. 12.Plavix. 13.Aranesp. 14.Vitamin D2. 15.Lasix. 16.Insulin. 17.Midodrine. 18.Coumadin. 19.Xanax. 20.Tylenol. ALLERGIES: Include IV dye, penicillin, shellfish, iodine. PHYSICAL EXAMINATION: On examination, patient is currently comfortable. She is awake, not in any acute distress. Alert and oriented x3. Blood pressure is 152/63, heart rate 78 per minute. She is afebrile. Examination of the heart S1, S2. Examination lungs bilateral breath sounds are heard. Abdomen is soft, nontender. Examination of lower extremities shows trace edema bilaterally. IT RISK ADVISOR exam is grossly intact. LABORATORY DATA: Hemoglobin 8.9 g/dL. Stool occult blood was positive. Potassium was 4.5 yesterday. ASSESSMENT: 1. End-stage renal disease, on hemodialysis on a Thursday, Thursday, Thursday schedule. We will arrange for hemodialysis today. 2. GI bleed with previous history of angiodysplasia and cauterization. Hemoglobin is currently stable, although it has dropped from 11.3 on initial admission to 8.9 now. GI has been consulted. 3. Chronic kidney disease mineral bone disorder. 4. Anemia, multifactorial. PLAN: Hemodialysis today. Increase UF as tolerated. Repeat labs in a.m. Monitor hemoglobin for possible packed RBC transfusion. Await GI input. MMKIML / IJN: [id number] /
--- NOTE | 2017-02-17 05:06 | CONS ---
CONSULTATION REQUESTING PHYSICIAN: Dr. Cornell. REASON FOR CONSULTATION: Anemia and rectal bleeding. HISTORY OF PRESENT ILLNESS: The patient is a 57-year-old female with history of end-stage renal disease, on hemodialysis, atrial fibrillation on Coumadin, history of coronary artery disease and diabetes mellitus, was transferred from the care home. The patient is undergoing rehab for progressive weakness. She apparently had a couple of episodes of bright red blood per rectum and hence was transferred to the emergency room at [facility] and subsequently admitted. Initial hemoglobin was 11.3 and this morning dropped to 9.5 g/dL. Since being in the hospital, patient did not have any episodes of bleeding. She denies any abdominal pain. Reports no nausea, vomiting. She did have a similar episode of severe acute lower GI bleed in February of 2016 at which time an upper endoscopy as well as colonoscopy was done. 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 Presently, her Coumadin is on hold. The INR is down to 1.6, yesterday it was 4.2. PAST MEDICAL HISTORY: Significant for hypertension, diabetes mellitus, end-stage renal disease, on hemodialysis, atrial fibrillation on Coumadin, hyperlipidemia. PAST SURGICAL HISTORY: Left upper arm dialysis catheter, 3 cardiac stents, cholecystectomy, hysterectomy, EGD and colonoscopy as mentioned above, bilateral cataract surgery, left axillary I and D. MEDICATIONS: At home include aspirin, Nephrocaps, Nitrostat, , Lantus, Coumadin, Neurontin, Ventolin, Cordarone, Lipitor, Dulcolax, Plavix, , Lasix, [place], NovoLog, magnesium oxide, Coumadin. ALLERGIES: TO IV DYE, PENICILLIN, SHELLFISH, CLONIDINE. REVIEW OF SYSTEMS: CARDIOPULMONARY: No chest pain, shortness of breath. GENITOURINARY: No dysuria, hematuria. MUSCULOSKELETAL: Some lower extremity weakness. NEUROLOGY: Unremarkable. PSYCHIATRIC: Unremarkable. ENT/VISION: Unremarkable. CONSTITUTIONAL: No recent weight loss. No fever, chills, night sweats. HEMATOLOGY: As mentioned above. Mild anemia. PHYSICAL EXAMINATION: She appears comfortable. No apparent distress. VITAL SIGNS: Stable. Blood pressure 190/88, pulse 86, temperature 98.6. HEENT EXAMINATION: Unremarkable. Conjunctivae pink. Sclerae anicteric. Oral cavity no lesions. NECK: No JVD. Chest was clear to auscultation. HEART: Regular rate and rhythm. Abdomen is soft. It was nontender, nondistended. Liver and spleen were not palpable. Bowel sounds were positive. No organomegaly. EXTREMITIES: No pedal edema. SKIN: No rashes. NEURO: She is alert and oriented x3. No focal deficits. LAB: From yesterday, WBC 11.3, hemoglobin 11.3, platelets were 264. INR was 4.2. This morning hemoglobin is 9, WBC 9.4, platelets are 310. INR is 1.6. IMPRESSION: This is a patient who presents to the hospital with 2 episodes of rectal bleeding while she was in the care home. Her initial hemoglobin was 11.3 and dropped to 9 g/dL. Since being in the hospital, she did not have any further episodes of bleeding. The patient did have an EGD and colonoscopy in February of 2016 and was noted to have bleeding arteriovenous malformation in the base of the cecum that was cauterized. She has coagulopathy secondary to Coumadin which is presently on hold and INR has improved to 1.4, and it appears that the bleeding has resolved. RECOMMENDATIONS: 1. Continue with a clear liquid diet. 2. Hold Coumadin. 3. Repeat CBC in the morning. 4. If she has no further episodes of bleeding, she can be discharged back to the care home. However, if she has obvious bleeding or significant drop in, we will consider endoscopy workup. The plan was discussed with the patient. She is agreeable to it. At this time we will monitor her closely. Thank you for this consultation. MMODL / IJN: [id number] /
[2017-02-17] MEDS: FUROSEMIDE 40 MG TAB PO SCH ×2 (06:03→15:05)
[2017-02-17] MEDS: GABAPENTIN 100 MG CAP PO SCH ×2 (06:03→15:05)
[2017-02-17 07:13] LABS: Glucose,Whole Blood 56 mg/dL (75-99)
[2017-02-17 07:47] LABS: Glucose,Whole Blood 59 mg/dL (75-99)
[2017-02-17 07:51] VITALS: TEMP 97.8
[2017-02-17 08:14] LABS: Glucose,Whole Blood 65 mg/dL (75-99)
[2017-02-17] MEDS: AMIODARONE 200 MG TAB PO SCH (08:14)
[2017-02-17] MEDS: MENTHOL-ZINC OXIDE OINT 113 GM TUBE TOPICAL SCH (08:14)
[2017-02-17] MEDS: SEVELAMER 800 MG TAB PO SCH ×2 (08:14→13:45)
[2017-02-17] MEDS: PANTOPRAZOLE 40 MG/10 ML VIAL IV SCH (08:14)
[2017-02-17] MEDS: INSULIN ASPART 100 UNIT/ML 1 ML 10 ML VIAL SQ SCH ×2 (08:15→13:47)
[2017-02-17 08:25] LABS: Glucose,Whole Blood 92 mg/dL (75-99)
[2017-02-17] MEDS: SODIUM CHLORIDE 0.9% 1,000 ML IV SCH (08:42)
[2017-02-17] MEDS ORDERED: METOPROLOL SUCCINATE (ER) 50 MG TAB.ER.24H PO SCH (09:00)
[2017-02-17 11:05] LABS: Glucose,Whole Blood 122 mg/dL (75-99)
--- NOTE | 2017-02-17 11:21 | P.PN ---
Subjective Progress Note Date: 02/17/17 Principal diagnosis: Anemia GI bleed No recurrence of GI bleed. CBC not available today. Hemoglobin 8.9 yesterday. INR yesterday 1.6. Denies abdominal pain. Objective - Vital Signs Vital signs: Vital Signs Temp 97.8 F 02/17/17 07:00 Pulse 74 02/17/17 07:00 Resp 16 02/17/17 07:00 BP 144/67 02/17/17 07:00 Pulse Ox 99 02/17/17 07:56 Intake & Output 02/16/17 02/17/17 02/17/17 18:59 06:59 18:59 Intake Total 140 420 Balance 140 420 Weight 68.039 kg Intake: IV 140 320 Sodium Chloride 0.9% 1, 140 320 000 ml @ 20 mls/hr IV . Q24H [facility] Rx#:[id number] Oral 100 Other: # Voids 1 # Bowel Movements 1 1 - Exam General appearance: The patient is alert, oriented, in no acute distress. HET: Head is normocephalic and atraumatic. Pupils are equal and reactive. Oropharynx is clear without lesions. Neck: Supple without lymphadenopathy. Trachea midline. Heart: S1 S2. Regular rate and rhythm. Lungs: No crackles or wheezes are heard. Abdomen: Soft, nontender, nondistended with bowel sounds. No peritoneal signs. No palpable organomegaly or masses. Extremities: Normal skin color and turgor. No cyanosis, rash, ulceration, clubbing, or edema. Radial and pedal pulses are 2/4 bilaterally. Neurological: No focal deficits. Strength and sensation are grossly intact. - Labs CBC & Chem 7: 02/16/17 16:30 02/15/17 00:40 Labs: Abnormal Lab Results - Last 24 Hours (Table) 02/15/17 02/16/17 02/16/17 Range/Units 00:40 07:45 11:48 RBC (3.80-5.40) m/uL Hgb (11.4-16.0) gm/dL Hct (34.0-46.0) % MCV (80.0-100.0) fL MCHC (31.0-37.0) g/dL RDW (11.5-15.5) % POC Glucose (mg/dL) 229 H (75-99) mg/dL Hemoglobin A1c 7.0 H (4.0-6.0) % Hep Bs Antibody Reactive H (Non-Reactive) 02/16/17 02/16/17 02/16/17 Range/Units 16:30 16:50 20:51 RBC 2.86 L (3.80-5.40) m/uL Hgb 8.9 L (11.4-16.0) gm/dL Hct 28.7 L (34.0-46.0) % MCV 100.2 H (80.0-100.0) fL MCHC 30.9 L (31.0-37.0) g/dL RDW 24.9 H (11.5-15.5) % POC Glucose (mg/dL) 152 H 175 H (75-99) mg/dL Hemoglobin A1c (4.0-6.0) % Hep Bs Antibody (Non-Reactive) 02/17/17 02/17/17 02/17/17 Range/Units 07:03 07:32 07:55 RBC (3.80-5.40) m/uL Hgb (11.4-16.0) gm/dL Hct (34.0-46.0) % MCV (80.0-100.0) fL MCHC (31.0-37.0) g/dL RDW (11.5-15.5) % POC Glucose (mg/dL) 56 L 59 L 65 L (75-99) mg/dL Hemoglobin A1c (4.0-6.0) % Hep Bs Antibody (Non-Reactive) 02/17/17 Range/Units 11:01 RBC (3.80-5.40) m/uL Hgb (11.4-16.0) gm/dL Hct (34.0-46.0) % MCV (80.0-100.0) fL MCHC (31.0-37.0) g/dL RDW (11.5-15.5) % POC Glucose (mg/dL) 122 H (75-99) mg/dL Hemoglobin A1c (4.0-6.0) % Hep Bs Antibody (Non-Reactive) Assessment and Plan (1) GI bleed Narrative/Plan: 57-year-old female admitted with rectal bleeding 2 episodes without recurrence. History of bleeding AVM base of the cecum February 2016 status post EGD colonoscopy. Supratherapeutic INR on admission since corrected and improved with no overt GI bleeding. Anticoagulation on hold. Current Visit: Yes Status: Acute Code(s): K92.2 - GASTROINTESTINAL HEMORRHAGE, UNSPECIFIED SNOMED Code(s): 07694255 (2) Acute blood loss anemia Current Visit: Yes Status: Acute Code(s): D62 - ACUTE POSTHEMORRHAGIC ANEMIA SNOMED Code(s): 493819385 (3) ESRD (end stage renal disease) on dialysis Current Visit: No Status: Chronic Code(s): N18.6 - END STAGE RENAL DISEASE; Z99.2 - DEPENDENCE ON RENAL DIALYSIS SNOMED Code(s): 266857287 Plan: 1. Advance diet. CBC if stable may be discharged back to the snf. Assessment and plan a care discussed with Dr. Nobles
[2017-02-17 12:50] LABS: Anisocytosis Marked; Basophils # (A) 0.1 k/uL (0-0.2); Basophils % (A) 1 %; Eosinophils # (A) 0.4 k/uL (0-0.7); Eosinophils % (A) 5 %; HCT 33.1 % (34.0-46.0); HGB 9.9 gm/dL (11.4-16.0); Hypochromasia Marked; Lymphocytes # (A) 1.5 k/uL (1.0-4.8); Lymphocytes % (A) 19 %; MCH 30.7 pg (25.0-35.0); MCHC 29.9 g/dL (31.0-37.0); MCV 102.5 fL (80.0-100.0); Macrocytosis Marked; Mean Platelet Volume 7.7; Monocytes # (A) 0.4 k/uL (0-1.0); Monocytes % (A) 6 %; Neutrophils # (A) 5.5 k/uL (1.3-7.7); Neutrophils % (A) 69 %; Platelet Count 299 k/uL (150-450); Poikilocytosis Slight; RBC 3.23 m/uL (3.80-5.40)
[2017-02-17 13:01] LABS: RDW 25.2 % (11.5-15.5)
[2017-02-17 13:48] LABS: Polychromasia Present
[2017-02-17 13:49] LABS: RBC Fragments Present
--- NOTE | 2017-02-17 14:50 | P.DS ---
Providers Date of admission: 02/16/17 01:58 Expected date of discharge: 02/17/17 Attending physician: Tiana Cornell Consults: 02/16/17 01:59 Consult Physician Urgent Consulting Provider: Tati Nobles Consult Reason/Comments: gi hemorrhage Do you want consulting provider notified?: Yes Consult Physician Urgent Consulting Provider: Stefania Zhu Consult Reason/Comments: crf, dialysis Do you want consulting provider notified?: Yes Primary care physician: Jossie Rubio Hospital Course: Final Diagnoses: 1. Acute lower GI bleeding with acute on chronic blood loss anemia 2. Chronic renal failure, end-stage on hemodialysis 3. Atrial fibrillation 4. CHF 5. CVA/TIA 6 Diabetes mellitus type 2 7. Gastroesophageal reflux disease 8. History of GI bleed 9. CAD 10. History of colonoscopy and cecal angiodysplasia cauterization previously Hospital course: This is a 57-year-old female admitted with acute lower GI bleed with acute on chronic blood loss anemia. Subtherapeutic INR on admission , corrected. Black colored stools reported at the ECF. Anticoagulation placed on hold, with close monitoring. Evaluated by nephrology and GI. Received hemodialysis. No recurrence of GI bleed. No endoscopy is recommended at this time. No abdominal pain. Cleared by all consults for discharge back to subacute rehab. The impression and plan of care has been dictated as directed. : I performed a history and examination of this patient, discussed the same with the dictator. I agree with the dictator's note ,documented as a scribe. Any additional findings or plans will be noted. Time spent greater than 35 minutes Patient Condition at Discharge: Stable Plan - Discharge Summary New Discharge Prescriptions: Continue Sevelamer [Renvela] 2,400 mg PO AC-TID@ Nitroglycerin Sl Tabs [Nitrostat] 0.4 mg SUBLINGUAL Q5M PRN PRN Reason: Chest Pain Folic Acid-Vit B Complex-Vit C [Nephrocaps] 1 cap PO DAILY@1700 Metoprolol Succinate (ER) [Toprol XL] 50 mg PO DAILY Insulin Glargine,Hum.rec.anlog [Lantus Solostar] 38 unit SQ HS@2130 Gabapentin [Neurontin] 100 mg PO TID@0600,1400,2100 guaiFENesin SYRUP 100MG/5ML [Robitussin] 200 mg PO TID PRN cup PRN Reason: Cough Acetaminophen Tab [Tylenol] 650 mg PO Q6HR PRN tab PRN Reason: Fever And/ Or Pain Atorvastatin [Lipitor] 40 mg PO HS Bisacodyl [Dulcolax] 10 mg RECTAL ONCE PRN PRN Reason: Constipation Ergocalciferol [Vitamin D2 (DRISDOL)] 50,000 unit PO Q30D Furosemide [Lasix] 40 mg PO BID@0600,1400 Insulin Aspart [NovoLOG] See Protocol SQ AC-TID@ Magnesium Hydroxide [Milk of Magnesia] 2,400 mg PO DAILY PRN PRN Reason: Constipation Menthol/Zinc Oxide [Calmoseptine Ointment] 1 applic TOPICAL BID Midodrine HCl [ProAmatine] 10 mg PO MOWEFR@0600 Na Phos,M-B/Na Phos,Di-Ba [Fleet Adult] 133 ml RECTAL ONCE PRN PRN Reason: Constipation Sodium Chloride [[place]] 1 spray EA NOSTRIL BID PRN PRN Reason: Congestion Albuterol Nebulized [Ventolin Nebulized] 2.5 mg INHALATION RT-QID PRN PRN Reason: Shortness Of Breath Amiodarone [Cordarone] 200 mg PO BID@0800,1700 Clopidogrel [Plavix] 75 mg PO DAILY Darbepoetin Dor[place]o [Aranesp] 40 mcg SQ MO ALPRAZolam [Xanax] 0.25 mg PO HS PRN #5 tablet PRN Reason: Insomnia Hydrocodone/Acetaminophen [[place] 7.5-325] 1 tab PO Q6HR PRN #20 tablet PRN Reason: Pain Discharge Medication List Folic Acid-Vit B Complex-Vit C [Nephrocaps] 1 cap PO DAILY@1700 10/30/16 [ History] Nitroglycerin Sl Tabs [Nitrostat] 0.4 mg SUBLINGUAL Q5M PRN 10/30/16 [History] Sevelamer [Renvela] 2,400 mg PO AC-TID@10/30/16 [History] Metoprolol Succinate (ER) [Toprol XL] 50 mg PO DAILY 11/26/16 [History] Insulin Glargine,Hum.rec.anlog [Lantus Solostar] 38 unit SQ HS@2130 01/01/17 [ History] Gabapentin [Neurontin] 100 mg PO TID@0600,1400,2100 01/02/17 [History] Acetaminophen Tab [Tylenol] 650 mg PO Q6HR PRN tab 01/26/17 [Rx] guaiFENesin SYRUP 100MG/5ML [Robitussin] 200 mg PO TID PRN cup 01/26/17 [Rx] Albuterol Nebulized [Ventolin Nebulized] 2.5 mg INHALATION RT-QID PRN 02/15/17 [ History] Amiodarone [Cordarone] 200 mg PO BID@0800,1700 02/15/17 [History] Atorvastatin [Lipitor] 40 mg PO HS 02/15/17 [History] Bisacodyl [Dulcolax] 10 mg RECTAL ONCE PRN 02/15/17 [History] Clopidogrel [Plavix] 75 mg PO DAILY 02/15/17 [History] Darbepoetin [place] [Aranesp] 40 mcg SQ MO 02/15/17 [History] Ergocalciferol [Vitamin D2 (DRISDOL)] 50,000 unit PO Q30D 02/15/17 [History] Furosemide [Lasix] 40 mg PO BID@0600,1400 02/15/17 [History] Insulin Aspart [NovoLOG] See Protocol SQ AC-TID@07,11,1730 02/15/17 [History] Magnesium Hydroxide [Milk of Magnesia] 2,400 mg PO DAILY PRN 02/15/17 [History] Menthol/Zinc Oxide [Calmoseptine Ointment] 1 applic TOPICAL BID 02/15/17 [ History] Midodrine HCl [ProAmatine] 10 mg PO MOWEFR@0600 02/15/17 [History] Na Phos,M-B/Na Phos,Di-Ba [Fleet Adult] 133 ml RECTAL ONCE PRN 02/15/17 [History ] Sodium Chloride [[place]] 1 spray EA NOSTRIL BID PRN 02/15/17 [History] ALPRAZolam [Xanax] 0.25 mg PO HS PRN #5 tablet 02/17/17 [Rx] Hydrocodone/Acetaminophen [[place] 7.5-325] 1 tab PO Q6HR PRN #20 tablet 02/17/17 [Rx] Follow up Appointment(s)/Referral(s): Stefania Zhu MD [STAFF PHYSICIAN] - 1 Week Ramiro Sethi MD [Primary Care Provider] - 1 Week (After DC from [facility]) Adan Gross MD [STAFF PHYSICIAN] - 3 Days (while at [facility]) Activity/Diet/Wound Care/Special Instructions: [facility] as per nephrology Diet: renal, consist. carb activity: as tolerated cbc,bmp, Phos in 3 days Anticoagulation currently on hold, resume Coumadin in 1 week, then baby aspirin the following week.
[2017-02-17 16:32] VITALS: RESP 18
[2017-02-17 17:12] LABS: Glucose,Whole Blood 156 mg/dL (75-99)
[2017-02-17 17:14] VITALS: BP 143/57; PULSE 78
--- NOTE | 2017-02-17 18:54 | PN ---
PROGRESS NOTE Patient is seen for followup for end-stage renal disease. She was dialyzed yesterday. She currently feels well and will be discharged. Patient denies any significant complaints. EXAMINATION: Blood pressure is 151/66, heart rate 78 per minute. She is afebrile. Examination of the heart: S1, S2. Examination lungs: Bilateral breath sounds are heard. Abdomen is soft, nontender. Examination lower extremity shows trace edema bilaterally. LEASE ATTENDANT exam is grossly intact. LABS: Hemoglobin 9.9 g/dL today. ASSESSMENT: 1. End-stage renal disease, on hemodialysis on a Thursday, Thursday, Thursday schedule, status post dialysis yesterday. 2. Gastrointestinal bleed. Previous workup and multiple endoscopies, status post cauterization, also previously, currently with no active bleeding noted. Hemoglobin is at 9.9. 3. CKD mineral bone disorder. 4. Dyslipidemia. PLAN: The patient is stable for discharge. Follow up as outpatient for hemodialysis tomorrow. MMODL / IJN: [id number] /
[2017-02-18] MEDS ORDERED: MIDODRINE 5 MG TAB PO SCH (06:00)
== END 2017-02-17 17:20 ==
LOC: EC 21:42 → INTOOBSV 02-16 01:58 → 5MS5E 02-16 01:58 → 5ONC 02-16 06:31
PROVIDERS: ADMIT Hospitalist; ATTEND Hospitalist
DX: K92.2 Gastrointestinal hemorrhage, unspecified (principal); D62 Acute posthemorrhagic anemia; N18.5 Chronic kidney disease, stage 5; I13.2 Hypertensive heart and chronic kidney disease with heart failure and with stage 5 chronic kidney disease, or end stage renal disease; K92.1 Melena; I48.91 Unspecified atrial fibrillation; I50.9 Heart failure, unspecified; Z99.2 Dependence on renal dialysis; E11.9 Type 2 diabetes mellitus without complications; I25.10 Atherosclerotic heart disease of native coronary artery without angina pectoris; K21.9 Gastro-esophageal reflux disease without esophagitis; E78.5 Hyperlipidemia, unspecified; M19.90 Unspecified osteoarthritis, unspecified site; R26.9 Unspecified abnormalities of gait and mobility; K55.20 Angiodysplasia of colon without hemorrhage; M89.9 Disorder of bone, unspecified; I34.0 Nonrheumatic mitral (valve) insufficiency; T45.515A Adverse effect of anticoagulants, initial encounter; Z79.01 Long term (current) use of anticoagulants; Z79.82 Long term (current) use of aspirin; Z79.899 Other long term (current) drug therapy; Z79.4 Long term (current) use of insulin; Z79.02 Long term (current) use of antithrombotics/antiplatelets; Z88.8 Allergy status to other drugs, medicaments and biological substances; Z91.041 Radiographic dye allergy status; Z88.0 Allergy status to penicillin; Z91.013 Allergy to seafood; Z91.048 Other nonmedicinal substance allergy status; Z87.01 Personal history of pneumonia (recurrent); I69.398 Other sequelae of cerebral infarction; H53.8 Other visual disturbances; Z95.5 Presence of coronary angioplasty implant and graft; Z87.891 Personal history of nicotine dependence; Z90.49 Acquired absence of other specified parts of digestive tract
CPT/HCPCS: 36556 ×2; 96376 ×2; 96372; 96365; 96375; 99285; 36415 ×2; 93005; 86900; 86901; 86705; 86902; 80053; 82550; 82553; 84484; 85025 ×3; 85027; 85610; 85730; 86850; 86870; 86880; 86706; 87340; 82272; 83036; 71020; 74000; G0378 ×2; G0257; J1644; J3430; C9113 ×2; J0881; 90935

== ENCOUNTER 2017-03-15 10:30 | Emergency (ER) | payer MEDICARE, BC ==
[2017-03-15 10:36] VITALS: PULSE 74; RESP 18
--- NOTE | 2017-03-15 11:40 | XR ---
History foot pain. Comparison none. Technique 6 views. FINDINGS: There is vascular calcification. I see no fracture nor dislocation. There is no evidence of focal bon e destruction. CONCLUSION: Vascular calcification. No evidence of osteomyelitis.
[2017-03-15 12:38] LABS: Anisocytosis Moderate; Basophils % (A) 1 %; Eosinophils # (A) 0.3 k/uL (0-0.7); Eosinophils % (A) 5 %; HCT 41.9 % (34.0-46.0); HGB 11.9 gm/dL (11.4-16.0); Hypochromasia Marked; Lymphocytes # (A) 1.2 k/uL (1.0-4.8); Lymphocytes % (A) 18 %; MCH 30.3 pg (25.0-35.0); MCHC 28.5 g/dL (31.0-37.0); MCV 106.4 fL (80.0-100.0); Macrocytosis Marked; Mean Platelet Volume 7.7; Monocytes # (A) 0.4 k/uL (0-1.0); Monocytes % (A) 6 %; Neutrophils # (A) 4.5 k/uL (1.3-7.7); Neutrophils % (A) 68 %; Platelet Count 282 k/uL (150-450); RBC 3.94 m/uL (3.80-5.40); WBC 6.6 k/uL (3.8-10.6)
[2017-03-15 12:48] LABS: Albumin 4.5 g/dL (3.5-5.0); Calcium 9.9 mg/dL (8.4-10.2); Potassium 3.5 mmol/L (3.5-5.1); Total Bilirubin 0.5 mg/dL (0.2-1.3); Total Protein 8.3 g/dL (6.3-8.2)
[2017-03-15 13:00] LABS: Poikilocytosis (M) Present; Polychromasia Present
[2017-03-15 13:01] LABS: Target Cells Present
--- NOTE | 2017-03-15 13:14 | ED ---
Lower Extremity Injury HPI - General Chief Complaint: Extremity Injury, Lower Stated Complaint: toe pain Time Seen by Provider: 03/15/17 10:43 Source: patient, family, RN notes reviewed, old records reviewed Mode of arrival: wheelchair Limitations: no limitations - History of Present Illness Initial Comments: 57-year-old female presents to emergency department this evening chief complaint of a infection and area of black or his left great toe. Patient reports she's noticed this for the past week. She has a history of renal disease, diabetes and CAD. She reports that she's never had any infections in her feet in the past. She recently was discharged home from [facility] to rehab after severe weakness from a septic infection. Patient states that she has had no fever or chills. She reports is painful to bear weight over her feet and toes. - Related Data Home Medications Medication Instructions Recorded Confirmed Folic Acid-Vit B Complex-Vit C 1 cap PO DAILY@1700 10/30/16 03/15/17 [Nephrocaps] Nitroglycerin Sl Tabs [Nitrostat] 0.4 mg SUBLINGUAL Q5M PRN 10/30/16 03/15/17 Sevelamer [Renvela] 2,400 mg PO AC-TID@07,11,1730 10/30/16 03/15/17 Metoprolol Succinate (ER) [Toprol 50 mg PO DAILY 11/26/16 03/15/17 XL] Insulin Glargine,Hum.rec.anlog 38 unit SQ HS@2130 01/01/17 03/15/17 [Lantus Solostar] Gabapentin [Neurontin] 100 mg PO TID@0600,1400,2100 01/02/17 03/15/17 Albuterol Nebulized [Ventolin 2.5 mg INHALATION RT-QID PRN 02/15/17 03/15/17 Nebulized] Amiodarone [Cordarone] 200 mg PO BID@0800,1700 02/15/17 03/15/17 Atorvastatin [Lipitor] 40 mg PO HS 02/15/17 03/15/17 Bisacodyl [Dulcolax] 10 mg RECTAL ONCE PRN 02/15/17 03/15/17 Clopidogrel [Plavix] 75 mg PO DAILY 02/15/17 03/15/17 Darbepoetin Doroteo [Aranesp] 40 mcg SQ MO 02/15/17 03/15/17 Ergocalciferol [Vitamin D2 50,000 unit PO Q30D 02/15/17 03/15/17 (DRISDOL)] Furosemide [Lasix] 40 mg PO BID@0600,1400 02/15/17 03/15/17 Insulin Aspart [NovoLOG] See Protocol SQ AC-TID@07,11,1730 02/15/17 03/15/17 Magnesium Hydroxide [Milk of 2,400 mg PO DAILY PRN 02/15/17 03/15/17 Magnesia] Menthol/Zinc Oxide [Calmoseptine 1 applic TOPICAL BID 02/15/17 03/15/17 Ointment] Midodrine HCl [ProAmatine] 10 mg PO MOWEFR@0600 02/15/17 03/15/17 Na Phos,M-B/Na Phos,Di-Ba [Fleet 133 ml RECTAL ONCE PRN 02/15/17 03/15/17 Adult] Sodium Chloride [Tama] 1 spray EA NOSTRIL BID PRN 02/15/17 03/15/17 Previous Rx's Medication Instructions Recorded Acetaminophen Tab [Tylenol] 650 mg PO Q6HR PRN tab 01/26/17 guaiFENesin SYRUP 100MG/5ML 200 mg PO TID PRN cup 01/26/17 [Robitussin] ALPRAZolam [Xanax] 0.25 mg PO HS PRN #5 tablet 02/17/17 Hydrocodone/Acetaminophen [[place] 1 tab PO Q6HR PRN #20 tablet 02/17/17 7.5-325] Ciprofloxacin HCl [Cipro] 500 mg PO Q12HR #20 tablet 03/15/17 Collagenase [Santyl] 1 applic TOPICAL DAILY #1 tube 03/15/17 Allergies Allergy/AdvReac Type Severity Reaction Status Date / Time clonidine Allergy Anaphylaxis Verified 03/15/17 10:38 Iodinated Contrast- Oral and Allergy Anaphylaxis Verified 03/15/17 10:38 IV Dye iodine Allergy Anaphylaxis Verified 03/15/17 10:38 Penicillins Allergy Rash/Hives Verified 03/15/17 10:38 shellfish derived Allergy Anaphylaxis Verified 03/15/17 10:38 Review of Systems ROS Statement: Those systems with pertinent positive or pertinent negative responses have been documented in the HPI. ROS Other: All systems not noted in ROS Statement are negative. Past Medical History Past Medical History: Atrial Fibrillation, Coronary Artery Disease (CAD), Heart Failure, CVA/TIA, Diabetes Mellitus, GERD/Reflux, GI Bleed, Hyperlipidemia, Osteoarthritis (OA), Pneumonia, Renal Disease, Vascular Disorder Additional Past Medical History / Comment(s): Coronary artery disease, preserved LV function with an ejection fraction of 55% and moderate degree of MR , IDDM type II, End stage renal failure with hemodialysis MWF-on kidney transplant list thru [facility], CVA 2007 with some peripheral vision problems R eye and R ear [place], lower GI bleed, PAD, DJD, diverticulosis, pancreatitis, bronchitis, TMJ, sinus problems at times, UTIs, benign polypectomies, anemia. pt currently resides at [facility] for physical therapy History of Any Multi-Drug Resistant Organisms: None Reported Past Surgical History: Cholecystectomy, Heart Catheterization, Heart Catheterization With Stent, Hysterectomy Additional Past Surgical History / Comment(s): L upper arm for dialysis cath, 3 Cardiac stents, one stent rt leg, EGD/colonoscopies/benign polypectomies , bilateral cataract removal, laser sx bilateral eyes for retinopathy, D&C, left axillary I&D Past Anesthesia/Blood Transfusion Reactions: Motion Sickness, Postoperative Nausea & Vomiting (PONV) Additional Past Anesthesia/Blood Transfusion Reaction / Comment(s): Pt has received blood in the past without reaction. Date of Last Stent Placement:: 09/22/13 Past Psychological History: No Psychological Hx Reported Smoking Status: Former smoker Past Alcohol Use History: Occasional Past Drug Use History: None Reported - Past Family History Mother Family Medical History: No Reported History Additional Family Medical History / Comment(s): Mother is 76 yrs old. Father Family Medical History: Diabetes Mellitus Additional Family Medical History / Comment(s): Father at the age of 42yrs- pt does not know reason. General Exam - General Exam Comments Initial Comments: Is a 57-year-old female. No distress. Limitations: no limitations General appearance: alert, in no apparent distress Head exam: Present: atraumatic, normocephalic, normal inspection Eye exam: Present: normal appearance, PERRL, EOMI. Absent: scleral icterus, conjunctival injection, periorbital swelling ENT exam: Present: normal exam, mucous membranes moist Neck exam: Present: normal inspection. Absent: tenderness, meningismus, lymphadenopathy Respiratory exam: Present: normal lung sounds bilaterally. Absent: respiratory distress, wheezes, rales, rhonchi, stridor Cardiovascular Exam: Present: regular rate GI/Abdominal exam: Present: soft, normal bowel sounds. Absent: distended, guarding, rebound, rigid Extremities exam: Present: normal inspection, full ROM, normal capillary refill. Absent: tenderness, pedal edema, joint swelling, calf tenderness Left Lower Leg exam: Present: normal inspection, full ROM Ankle exam: Present: normal inspection, full ROM Foot/Toe exam: Present: full ROM. Absent: normal inspection (eschar over great toe 2cm), tenderness, swelling Neurovascular tendon exam: Present: no vascular compromise Gait: observed and normal Back exam: Present: normal inspection, full ROM Neurological exam: Present: alert, oriented X3, CN II-XII intact Psychiatric exam: Present: normal affect, normal mood Skin exam: Present: warm, dry, intact, normal color. Absent: rash Course Vital Signs 03/15/17 03/15/17 10:33 14:35 Temperature 99.3 F 98.9 F Pulse Rate 74 74 Respiratory 18 18 Rate Blood Pressure 136/63 127/71 O2 Sat by Pulse 91 L 93 L Oximetry Medical Decision Making - Medical Decision Making This is a 57-year-old diabetic with a history of renal disease presents with a black eschar over her left great toe for the past week. Area measures 2cm over pad of toe. Patient received work. I had a difficult time feeling the dorsalis his pulse. It is heard with Doppler ultrasound. Unable to obtain posterior posterior tibial pulse. Patient case with Dr. Plasencia. Dr. Plasencia discussed with Dr. Cantrell the vascular surgeon. He recommends putting the patient on Cipro by mouth 500 twice a day for 10 days as well as following up with wound clinic. Also put Syntal cream on it as well. Discussed that she needs to follow-up with the wound care clinic in her vascular surgeon as soon as possible. When we discussed this, patient relates at the end of the visit that she already has syntal cream and needs dressing. She has an apt with PCP in 3 days. Discussed importance of wound care, and follow up. Patient agrees to treatment plan will comply. Return parameters were discussed. She does see a vascular surgeon [facility] - Lab Data Result diagrams: 03/15/17 12:26 03/15/17 12:26 Lab Results 03/15/17 03/15/17 Range/Units 12:26 12:26 WBC 6.6 (3.8-10.6) k/uL RBC 3.94 (3.80-5.40) m/uL Hgb 11.9 (11.4-16.0) gm/dL Hct 41.9 (34.0-46.0) % MCV 106.4 H (80.0-100.0) fL MCH 30.3 (25.0-35.0) pg MCHC 28.5 L (31.0-37.0) g/dL RDW 22.0 H (11.5-15.5) % Plt Count 282 (150-450) k/uL Neutrophils % 68 % Lymphocytes % 18 % Monocytes % 6 % Eosinophils % 5 % Basophils % 1 % Neutrophils # 4.5 (1.3-7.7) k/uL Lymphocytes # 1.2 (1.0-4.8) k/uL Monocytes # 0.4 (0-1.0) k/uL Eosinophils # 0.3 (0-0.7) k/uL Basophils # 0.0 (0-0.2) k/uL Manual Slide Review Performed Polychromasia Present Hypochromasia Marked Poikilocytosis (manual Present Anisocytosis Moderate Macrocytosis Marked Target Cells Present Sodium 138 (137-145) mmol/L Potassium 3.5 (3.5-5.1) mmol/L Chloride 91 L (98-107) mmol/L Carbon Dioxide 32 H (22-30) mmol/L Anion Gap 15 mmol/L BUN 17 (7-17) mg/dL Creatinine 4.50 H (0.52-1.04) mg/dL Est GFR (MDRD) Af Amer 12 (>60 ml/min/1.73 sqM) Est GFR (MDRD) Non-Af 10 (>60 ml/min/1.73 sqM) Glucose 296 H (74-99) mg/dL Calcium 9.9 (8.4-10.2) mg/dL Total Bilirubin 0.5 (0.2-1.3) mg/dL AST 28 (14-36) U/L ALT 45 (9-52) U/L Alkaline Phosphatase 141 H (38-126) U/L Total Protein 8.3 H (6.3-8.2) g/dL Albumin 4.5 (3.5-5.0) g/dL - Radiology Data Radiology results: report reviewed Xray feet show vascular calcification. No osteomyelitis. Disposition Clinical Impression: Eschar of foot Disposition: HOME SELF-CARE Condition: Good Additional Instructions: Needs follow-up with the wound care clinic as well as neurovascular specialist. Take antibiotics as prescribed as well as apply Santyl cream. Patient should keep the wound covered. Call the specialist on Thursday. Return to emergency department if any alarming signs or symptoms occur. Prescriptions: Ciprofloxacin HCl [Cipro] 500 mg PO Q12HR #20 tablet Collagenase [Santyl] 1 applic TOPICAL DAILY #1 tube Referrals: Wilber Cornelius MD [Primary Care Provider] - 1-2 days Patel Mares MD [STAFF PHYSICIAN] - 1-2 days Time of Disposition: 14:11
[2017-03-15 14:35] VITALS: BP 127/71; TEMP 98.9
== END 2017-03-15 14:35 | disposition home or self-care (01) ==
LOC: EC 10:30
DX: R23.4 Changes in skin texture (principal); M79.675 Pain in left toe(s); I48.91 Unspecified atrial fibrillation; I25.10 Atherosclerotic heart disease of native coronary artery without angina pectoris; I50.9 Heart failure, unspecified; E11.9 Type 2 diabetes mellitus without complications; K21.9 Gastro-esophageal reflux disease without esophagitis; E78.5 Hyperlipidemia, unspecified; M19.90 Unspecified osteoarthritis, unspecified site; Z87.891 Personal history of nicotine dependence; Z79.4 Long term (current) use of insulin; Z79.899 Other long term (current) drug therapy; Z88.0 Allergy status to penicillin; Z91.013 Allergy to seafood; Z91.041 Radiographic dye allergy status; Z88.8 Allergy status to other drugs, medicaments and biological substances; Z86.73 Personal history of transient ischemic attack (TIA), and cerebral infarction without residual deficits
CPT/HCPCS: 36415; 80053; 85025; 87040; 87070; 87205; 99284

== ENCOUNTER → 2017-05-15 | Outpatient (CLI) | payer MEDICARE, BC ==
[2017-05-15 20:07] LABS: Protein, Total 7.6 g/dL (6.2-8.2)
[2017-05-19 11:51] LABS: Albumin 4.12 g/dL (3.80-4.90); Gamma Globulin 1.13 g/dL (0.70-1.50)
== END | disposition home or self-care (01) ==
LOC: LABWHC1 11:30
PROVIDERS: ATTEND Internal Medicine
DX: E83.52 Hypercalcemia (principal)
CPT/HCPCS: 36415; 82306; 82652; 83883; 84165